=== PATIENT | female | born 1945 | race Caucasian/White ===

== ENCOUNTER 2015-12-06 14:46 | Outpatient (RCR) | payer MEDICARE, MEDICAID ==
[~2015-12-06 14:46] MED LIST: ACHD5005 PO; ALPR.25T PO; ASPI-983 PO; ATOR40TA70 PO; CEPH500C PO; CLD600T PO; DICY10CA12 PO; DICY20TA10 PO; EZET10TA5 PO; GABA-488 PO; GBPN300C PO; GLIP10TA13 PO; HYDR1TAB66 PO; IBP800T PO; IBUP-1780 PO; LETR2.5T4 PO; LEVO125T6 PO; LEVO500T69 PO; LEVO750T6 PO; LIRA0.6P SQ; LIRA0.6P3 SC; LISI10TA PO; MAGN400T29 PO; MECL25TA56 PO; MECO5000 PO; METF1000 PO; METF500T4 PO; MIRA50TA PO; MNTL10T PO; MONT10TA24 PO; MTF500T PO; MULT-974 PO; OMEG1CAP51 PO; OMEP20CA12 PO; OXYB15TA PO; PGLT30T PO; SERT25TA PO; SERT25TA5 PO; SIMV80TA3 PO; SITA100T PO; SOLI5TAB4 PO; TRAM-42 PO
[2015-12-06 15:36] LABS: BASOPHILS % (AUTO) 0 % (0-10); EOSINOPHILS # (AUTO) 0.1 10^3/uL (0.0-0.3); EOSINOPHILS % (AUTO) 1 % (0-10); LYMPHOCYTES # (AUTO) 1.4 X 10^3 (1.0-4.0); LYMPHOCYTES % (AUTO) 21 % (12-44); MEAN CORPUSCULAR HEMOGLOBIN 27 PG (25-34); MEAN CORPUSCULAR HGB CONC 31 G/DL (32-36); MEAN CORPUSCULAR VOLUME 88 FL (80-99); MEAN PLATELET VOLUME 8.8 FL (7.4-10.4); MONOCYTES # (AUTO) 0.5 X 10^3 (0.0-1.0); MONOCYTES % (AUTO) 8 % (0-12); NEUTROPHILS # (AUTO) 4.5 X 10^3 (1.8-7.8); NEUTROPHILS % (AUTO) 70 % (42-75); PLATELET COUNT 209 10^3/uL (130-400); RED BLOOD COUNT 3.95 10^6/uL (4.35-5.85); RED CELL DISTRIBUTION WIDTH 14.4 % (10.0-14.5); WHITE BLOOD COUNT 6.4 10^3/uL (4.3-11.0)
[2015-12-06 16:54] LABS: ALANINE AMINOTRANSFERASE 15 U/L (0-55); ALBUMIN 3.9 G/DL (3.2-4.5); ANION GAP 6 MMOL/L (5-14); ASPARTATE AMINO TRANSFERASE 15 U/L (5-34); BILIRUBIN,TOTAL 0.5 MG/DL (0.1-1.0); BLOOD UREA NITROGEN 22 MG/DL (7-18); BUN/CREATININE RATIO 34; CALCIUM 9.1 MG/DL (8.5-10.1); CARBON DIOXIDE 28 MMOL/L (21-32); CHLORIDE 108 MMOL/L (98-107); CREATININE SERUM 0.65 MG/DL (0.60-1.30); GFR ESTIMATED > 60; GLUCOSE 131 MG/DL (70-105); POTASSIUM 3.8 MMOL/L (3.6-5.0); SODIUM 142 MMOL/L (135-145); TOTAL PROTEIN 6.7 G/DL (6.4-8.2)
== END 2016-03-05 | disposition home or self-care (01) ==
LOC: ONC 14:46
PROVIDERS: ATTEND Internal Medicine Hematology & Oncology
DX: Z08 Encounter for follow-up examination after completed treatment for malignant neoplasm (principal); Z85.3 Personal history of malignant neoplasm of breast; I89.0 Lymphedema, not elsewhere classified; M85.80 Other specified disorders of bone density and structure, unspecified site
CPT/HCPCS: 36415; 80053; 85025; 99213

== ENCOUNTER → 2016-05-25 | Outpatient (CLI) | payer MEDICARE, MEDICAID ==
--- NOTE | 2016-06-07 09:12 | ECHOCARDIOGRAPHY REPORT ---
PROCEDURE PHYSICIAN: HALI CEDENO DATE OF PROCEDURE: 05/25/2016 TWO DIMENSIONAL ECHOCARDIOGRAM REPORT PRIMARY PHYSICIAN: Dr. Wong OTHER PHYSICIAN: Salome Jaquez APRN REFERRING PHYSICIAN: ORDERING PHYSICIAN: Shannan Leon APRN INDICATION FOR THE PROCEDURE: 1. Hypertension. 2. Mitral and tricuspid regurgitation. MEASUREMENTS DERIVED VALUES LV DIAMETER (LAX) NORMALS NORMALS Diastolic 5.3 (3.6-5.2) Eject. Fract. (60%+/-6%) Systolic (2.3-3.9) Diastolic Vol. % Shortening (0.22-0.42) Systolic Vol. Aortic Root 3.1 IVS THICKNESS Diastolic 0.8 (0.6-1.1) LVPW THICKNESS Diastolic 0.9 (0.6-1.1) LA DIAMETER Systolic 3.2 (2.1-3.7) Two-dimensional echocardiography shows normal global left ventricular systolic function. No distinct regional wall motion abnormalities are seen. Aortic, mitral, tricuspid valve leaflets show good leaflet excursion. Aortic valve appears to be trileaflet. There is no significant pericardial effusion seen on this study. Doppler imaging shows trivial to mild mitral and tricuspid regurgitation. There is no Doppler evidence of significant valvular stenosis. Pulmonary artery systolic pressure is estimated to be approximately 30 to 35 mmHg. Mitral inflow is consistent with grade 1 diastolic dysfunction of the left ventricle. There is no evidence of significant intracardiac shunt on this transthoracic echocardiographic study. Inferior vena cava appears to be of normal size and does exhibit inspiratory collapse. CONCLUSIONS: 1. Normal global left ventricular systolic function with an ejection fraction of approximately 60%. 2. Trivial to mild mitral and tricuspid regurgitation. 3. Pulmonary artery systolic pressure is estimated to be 30 to 35 mmHg. 4. Mild diastolic dysfunction of the left ventricle. 5. No evidence of any significant valvular stenosis. Job ID: [id number] Dictated Date: 06/06/2016 14:25:44 Sand Shoveler Date: 06/07/2016 09:07:32 / sunil
== END ==
LOC: CARD 09:41
PROVIDERS: ATTEND Nurse Practitioner Family
DX: I65.23 Occlusion and stenosis of bilateral carotid arteries (principal); E78.4 Other hyperlipidemia; I10 Essential (primary) hypertension; I34.0 Nonrheumatic mitral (valve) insufficiency; I07.1 Rheumatic tricuspid insufficiency
CPT/HCPCS: 93306

== ENCOUNTER 2016-06-05 10:05 | Outpatient (RCR) | payer MEDICARE, MEDICAID ==
[2016-06-05 10:19] LABS: BASOPHILS % (AUTO) 0 % (0-10); EOSINOPHILS # (AUTO) 0.1 10^3/uL (0.0-0.3); EOSINOPHILS % (AUTO) 1 % (0-10); LYMPHOCYTES # (AUTO) 1.3 X 10^3 (1.0-4.0); LYMPHOCYTES % (AUTO) 20 % (12-44); MEAN CORPUSCULAR HEMOGLOBIN 27 PG (25-34); MEAN CORPUSCULAR HGB CONC 30 G/DL (32-36); MEAN CORPUSCULAR VOLUME 89 FL (80-99); MEAN PLATELET VOLUME 8.5 FL (7.4-10.4); MONOCYTES # (AUTO) 0.5 X 10^3 (0.0-1.0); MONOCYTES % (AUTO) 8 % (0-12); NEUTROPHILS # (AUTO) 4.4 X 10^3 (1.8-7.8); NEUTROPHILS % (AUTO) 70 % (42-75); PLATELET COUNT 175 10^3/uL (130-400); RED BLOOD COUNT 4.13 10^6/uL (4.35-5.85); RED CELL DISTRIBUTION WIDTH 15.2 % (10.0-14.5); WHITE BLOOD COUNT 6.2 10^3/uL (4.3-11.0)
[2016-06-05 11:18] LABS: ALANINE AMINOTRANSFERASE 23 U/L (0-55); ALBUMIN 4.2 G/DL (3.2-4.5); ANION GAP 7 MMOL/L (5-14); ASPARTATE AMINO TRANSFERASE 19 U/L (5-34); BILIRUBIN,TOTAL 0.9 MG/DL (0.1-1.0); BLOOD UREA NITROGEN 25 MG/DL (7-18); BUN/CREATININE RATIO 36; CALCIUM 9.3 MG/DL (8.5-10.1); CARBON DIOXIDE 29 MMOL/L (21-32); CHLORIDE 109 MMOL/L (98-107); CREATININE SERUM 0.69 MG/DL (0.60-1.30); GFR ESTIMATED > 60; GLUCOSE 140 MG/DL (70-105); POTASSIUM 4.3 MMOL/L (3.6-5.0); SODIUM 145 MMOL/L (135-145); TOTAL PROTEIN 6.9 G/DL (6.4-8.2)
[2016-08-04] MEDS ORDERED: CHOL200014 PO (10:13)
[2016-08-11] MEDS ORDERED: TRAM-42 PO (18:28)
== END 2016-09-03 | disposition home or self-care (01) ==
LOC: ONC 10:05
PROVIDERS: ATTEND Internal Medicine Hematology & Oncology
DX: Z08 Encounter for follow-up examination after completed treatment for malignant neoplasm (principal); Z85.3 Personal history of malignant neoplasm of breast; I89.0 Lymphedema, not elsewhere classified; M85.80 Other specified disorders of bone density and structure, unspecified site
CPT/HCPCS: 36415; 80053; 85025; 99213

== ENCOUNTER 2016-08-04 06:43 | Outpatient (CLI) | payer MEDICARE, MEDICAID ==
[~2016-08-04] VITALS: Ht 157.5 cm; Wt 75.7 kg
[2016-08-04] MEDS ORDERED: CHOL200014 PO (10:13)
== END 2016-08-04 10:19 ==
LOC: PREOP 06:43
PROVIDERS: ATTEND Surgery
DX: Z01.818 Encounter for other preprocedural examination (principal); Z12.11 Encounter for screening for malignant neoplasm of colon

== ENCOUNTER 2016-08-07 08:33 | Day surgery (SDC) | payer MEDICARE, MEDICAID ==
[~2016-08-07 08:33] MED LIST changes: +CHOL200014 PO
[2016-08-07 08:45] VITALS: BP 157/88
[2016-08-07] MEDS ORDERED: FLUMAZENIL (ROMAZICON) 0.1 MG/ML 5 ML VIAL INJ PRN (08:45)
[2016-08-07] MEDS ORDERED: NALOXONE 0.4 MG/ML 1 ML (NARCAN) VIAL IVP PRN (08:45)
[2016-08-07] MEDS ORDERED: NS IV 500 ML 500 ML IV PRN (08:45)
[2016-08-07] MEDS ORDERED: fentaNYL INJECTION 100 MCG/2 ML AMP IVP PRN (08:45)
[2016-08-07] MEDS ORDERED: MIDAZOLAM 2 MG/2 ML (VERSED) VIAL IVP PRN (08:45)
--- NOTE | 2016-08-07 10:15 | Conscious Sedation/ASA ---
Conscious Sedation Pre-Proced Time Reviewed: 10:15 ASA Class: 2 Airway Mallampati Classification: ([place] appropriate class) I. II. III, IV Lungs Heart ASA score ASA 1: a normal healthy patient ASA 2: a patient with a mild systemic disease (mid diabetes, controlled hypertension, obesity ASA 3: a patient with a severe systemic disease that limits activity (angina , COPD, prior Myocardial infarction) ASA 4: a patient with an incapacitating disease that is a constant threat to life (CHF, renal failure) ASA 5: a moribund patient not expected to survive 24 hrs. (ruptured aneurysm) ASA 6: a declared brain patient whose organs are being harvested. For emergent operations, add the letter E after the classification Grade 2 Sedation Plan: Discussed options with patient/fam Note The patient is an appropriate candidate to undergo the planned procedure, sedation, and anesthesia. The patient immediately re-assessed prior to indication. KEYLA SHERIDAN MD Aug 07, 2016 10:15 am
[2016-08-07] MEDS ORDERED: MIDAZOLAM 2 MG/2 ML (VERSED) VIAL ONE ×3 (10:32)
[2016-08-07] MEDS ORDERED: fentaNYL INJECTION 100 MCG/2 ML AMP ONE (10:32)
--- NOTE | 2016-08-07 11:10 | Endoscopy Procedure Report ---
Endoscopy Report Date: Aug 07, 2016 Preoperative Diagnosis: screening Study Performed: Colonoscopy Procedure Instrument: Colonoscope Endo Procedure/Findings Findings 1.: Diverticulosis KEYLA SHERIDAN MD Aug 07, 2016 11:10 am
--- NOTE | 2016-08-07 11:13 | Discharge Inst-Simple/Standard ---
Discharge Inst-Standard Discharge Medications New, Converted or Re-Newed RX: Other Patient Instructions/Follow Up Plan of Care/Instructions/FU: please schedule CT abdomen and pelvis with rectal contrast Activity as Tolerated: Yes Discharge Diet: No Restrictions KEYLA SHERIDAN MD Aug 07, 2016 11:13 am
[2016-08-07 11:30] VITALS: BP 138/89
[2016-08-07 12:00] VITALS: BP 133/88
--- NOTE | 2016-08-07 12:51 | OPERATIVE REPORT ---
DATE OF SERVICE: 08/07/2016 PROCEDURE: Incomplete colonoscopy. SURGEON: Keyla Sheridan MD. INDICATION FOR PROCEDURE: This lady came in for screening colonoscopy. Informed consent was obtained after reviewing the procedure in detail. DESCRIPTION OF PROCEDURE: She was placed in left lateral decubitus position and her vital signs were monitored. Conscious sedation was achieved using Versed and fentanyl. Digital rectal examination was unremarkable. The colonoscope was then introduced into the rectum and advanced to the mid sigmoid colon. Despite multiple attempts, the scope could not be advanced further due to extensive sigmoid diverticulosis. Therefore, further attempts were abandoned with arrangements for a CT scan with rectal contrast. IMPRESSION: Screening colonoscopy incomplete examination. Severe sigmoid diverticulosis. CT scan pending. Job ID: [id number] DocumentID: [id number] Dictated Date: 08/07/2016 11:09:51 Deck Molder Date: 08/07/2016 12:50:49 Dictated By: KEYLA SHERIDAN MD MTDD
[2016-08-07 13:37] VITALS: BP 151/88
[2016-08-07 13:50] VITALS: BP 151/88
--- NOTE | 2016-08-07 14:37 | Diagnostic Imaging Report ---
PROCEDURE: CT abdomen and pelvis without intravenous, and with rectal contrast. TECHNIQUE: Multiple contiguous axial images were obtained through the abdomen and pelvis without the use of intravenous and with rectal contrast. Prone and supine imaging is performed. INDICATION: Sigmoid diverticulosis. Rectal contrast was administered. FINDINGS: There is good rectal contrast opacification of the colon which is also generally well prepped. There is diverticulosis mostly in the sigmoid and the descending colon with some diverticula seen in the right colon as well. There is no obstruction or stricture. Slight probably physiologic contraction in the sigmoid colon is seen. Adjacent to the ileocecal valve, there is a focal area of fold thickening seen as on axial image 60 series 2. When the prone and supine images are compared in the same region there is a slight change in the appearance of this area and therefore it is uncertain if it represents fecal material versus possibly a pedunculated polyp. This measures 2.3 x 1 CM as on image 60, series 2 and the corresponding abnormality on series 5 is on image 54. The lung bases demonstrate minimal atelectasis on the left side and tiny loculated effusion along the anterolateral aspect of the lower left hemithorax. There is a tiny hiatal hernia. Cholecystectomy clips are seen. The liver demonstrate a hypodense lesion measuring 9 mm in segment 4 of uncertain etiology. The spleen is at the upper limits of normal in size. The pancreas and the right adrenal gland appear unremarkable. The left adrenal gland demonstrates a low density lesion measuring 2.6 CM stable from 2009 compatible with lipid rich adenoma. The kidneys have no evidence of hydronephrosis and there are no stones seen. No significant free fluid or fluid collection in the abdomen or pelvis is seen. The osseous structures appear grossly unremarkable. IMPRESSION: 1. There is a 2.3 cm filling defect within the cecum near the ileocecal valve. This could represent a pedunculated polyp versus fecal material, from an incomplete prep. Followup study with rectal contrast or endoscopic examination is recommended. 2. Diverticulosis. No diverticulitis. A message about the findings was sent to Dr. Payne at time of dictation. Dictated by: Dictated on workstation # [id number]
== END 2016-08-07 13:50 | disposition home or self-care (01) ==
LOC: ENDO 08:33
PROVIDERS: ATTEND Surgery
DX: Z12.11 Encounter for screening for malignant neoplasm of colon (principal); K57.30 Diverticulosis of large intestine without perforation or abscess without bleeding; I10 Essential (primary) hypertension; E78.5 Hyperlipidemia, unspecified; K21.9 Gastro-esophageal reflux disease without esophagitis; E03.9 Hypothyroidism, unspecified; E11.9 Type 2 diabetes mellitus without complications; F32.9 Major depressive disorder, single episode, unspecified; M19.90 Unspecified osteoarthritis, unspecified site
CPT/HCPCS: 74176

== ENCOUNTER 2016-08-11 15:38 | Emergency (ER) | payer MEDICARE, MEDICAID ==
[~2016-08-11] VITALS: Ht 157.5 cm; Wt 75.7 kg
--- NOTE | 2016-08-11 17:08 | Diagnostic Imaging Report ---
INDICATION: Left shoulder pain, fall. COMPARISON: None. EXAMINATION: Four views of the left shoulder were obtained. FINDINGS: No fracture or dislocation. Articular surfaces are age-appropriate. There is no osseous lesion. IMPRESSION: No acute fracture or dislocation. Dictated by: Dictated on workstation # [id number]
--- NOTE | 2016-08-11 17:12 | Diagnostic Imaging Report ---
PROCEDURE: CT head, face, and cervical spine without contrast. TECHNIQUE: Multiple contiguous axial images were obtained through the head, neck, and facial bones without the use of intravenous contrast. Sagittal and coronal reformations through the cervical spine and facial bones were also performed. INDICATION: Fall. Hit left cheek on ground. FINDINGS: CT head without: There is no evidence of intracranial hemorrhage. There is no mass effect. No extra-axial fluid collection. Basal cisterns are clear. Mastoid air cells are well aerated. Bone windows show no evidence of calvarial fracture. Facial bones: There is marked soft tissue swelling noted over the left infraorbital region. No evidence of orbital fracture. There is a retention cyst in the left maxillary antrum measuring approximately 1 cm. Small cyst noted in the left ethmoid sinus as well. Mandible appears intact. Temporomandibular joints are in good alignment. IMPRESSION: Large hematoma over the left infraorbital region with no bony lesions demonstrated. Finding consistent with mild chronic inflammatory changes of paranasal sinuses. CT cervical spine: FINDINGS: Sagittal and coronal images show good alignment. Body height is well maintained. 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 There is no evidence of fractures. Advanced degenerative changes noted throughout. The atlantoaxial joint is intact with degenerative change. The surrounding soft tissues appear normal. IMPRESSION: Advanced degenerative cervical disc and facet disease with no acute abnormalities. Incidentally noted is thyroidectomy with no cervical chain adenopathy. Dictated by: Dictated on workstation # [id number]
--- NOTE | 2016-08-11 18:16 | ED Fall/Injury ---
General Chief Complaint: Trauma-Non Activation Stated Complaint: FALL;FACE AND SHOULDER INJ Nursing Triage Note: to ED with reports of fall, landing on left shoulder and striking left face on ground. Patient reports that she was walking with a walker and the wheel got caught on the curb, and she fell. Denies LOC. Moderate inflammation to the left periorbital area. Patient also complaining of left shoulder pain. Source: patient History of Present Illness Time seen by provider: 18:10 Initial Comments 1809--ASSUMED CARE FROM DR. 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 NO DIZZINESS NO NAUSEA/VOMITING NO HEADACHE NO OTHER INJURIES Location Injury Occurred: [facility] PCP: LOLITA CANALES Allergies and Home Medications Allergies Coded Allergies: latex (Verified Allergy, Unknown, 11/10/05) Home Medications Aspirin 81 Mg Tablet.dr, 81 MG PO DAILY, (Reported) Atorvastatin Calcium 40 Mg Tablet, 40 MG PO HS, (Reported) Calcium/Vitamin D 600 Mg Tab, 600 MG PO DAILY, (Reported) Cholecalciferol (Vitamin D3) 2,000 Unit Tablet, 2,000 UNIT PO DAILY, (Reported) Dicyclomine HCl 10 Mg Capsule, 10 MG PO QID, (Reported) Ezetimibe 10 Mg Tablet, 10 MG PO DAILY, (Reported) Gabapentin 300 Mg Capsule, 300 MG PO TID, (Reported) Glipizide 10 Mg Tablet, 10 MG PO BID, (Reported) Ibuprofen 800 Mg Tablet, 800 MG PO TID, (Reported) Levothyroxine Sodium 125 Mcg Tablet, 125 MCG PO DAILY, (Reported) Liraglutide 0.6 Mg/0.1 Ml Pen.injctr, 1.8 MG SC HS, (Reported) Magnesium Oxide 400 Mg Tablet, 400 MG PO BID, (Reported) Metformin HCl 500 Mg Tablet, 1,000 MG PO BID, (Reported) TAKES 2 (500MG) TABLETS Mirabegron 50 Mg Tab.er.24h, 50 MG PO 1200, (Reported) Montelukast Sodium 10 Mg Tablet, 10 MG PO HS, (Reported) [place]-3 Fatty Acids/Fish Oil 1 Each Capsule, 1,000 MG PO TID, (Reported) Omeprazole 20 Mg Capsule.dr, 20 MG PO BID, (Reported) Oxybutynin Chloride 15 Mg Tab.er.24, 15 MG PO DAILY, (Reported) Sertraline HCl 25 Mg Tablet, 25 MG PO HS, (Reported) Tramadol HCl 50 Mg Tablet, 50 MG PO Q4H, #15 Prescribed by: JES PEREZ on 08/11/16 1828 Constitutional: no symptoms reported Eyes: See HPI Ears, Nose, Mouth, Throat: no symptoms reported Respiratory: no symptoms reported Cardiovascular: no symptoms reported Gastrointestinal: no symptoms reported, No nausea, No vomiting Genitourinary: no symptoms reported Musculoskeletal: see HPI, No back pain, No neck pain, other (LEFT SHOULDER PAIN ) Skin: other (MINOR ABRASIONS TO LEFT CHEEK AND SHOULDER) Psychiatric/Neurological: No Symptoms Reported, Denies Headache, Denies Numbness, Denies Paresthesia Past Ddmzhem-Grgulk-Tcflla Hx Patient Social History Alcohol Use: Denies Use Recreational Drug Use: No Smoking Status: Former Smoker Type Used: Cigarettes Former Smoker/When Quit: Dec 25, 2006 2nd Hand Smoke Exposure: No Recent Foreign Travel: No Contact w/Someone Who Travel: No Recent Infectious Disease Expo: No Recent Hopitalizations: No Immunizations Up To Date Tetanus Booster (TDap): Unknown Date of Pneumonia Vaccine: Jan 26, 2012 Date of Influenza Vaccine: Nov 19, 2014 Seasonal Allergies Seasonal Allergies: Yes Surgeries HX Surgeries: Yes (bilat arm fx, port placed and removed; RIGHT BREAST LUMPECTOMY AND RIGHT AXILLARY NODE DISSECTION 2008) Surgeries: Angioplasty, Breast, Eye Surgery, Gallbladder, 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, Orthopedic, Renal, Thyroidectomy Respiratory Hx Respiratory Disorders: No Cardiovascular Hx Cardiac Disorders: Yes (heart cath august 2010; CAROTID DISEASE) Cardiac Disorders: High Cholesterol, Hypertension, Peripheral Vascular Neurological Hx Neurological Disorders: Yes Neurological Disorders: Neuropathy Reproductive System Hx Reproductive Disorders: No Sexually Transmitted Disease: No HIV/AIDS: No Genitourinary Hx Genitourinary Disorders: Yes (INCONTINENCE) Genitourinary Disorders: Kidney Stones Gastrointestinal Hx Gastrointestinal Disorders: Yes Gastrointestinal Disorders: Gastroesophageal Reflux, Polyps, Irritable Bowel Musculoskeletal Hx Musculoskeletal Disorders: Yes (LYMPHEDEMA OF RIGHT ARM) Musculoskeletal Disorders: Degenerate Disk Disease, Arthritis, Chronic Back Pain Endocrine Hx Endocrine Disorders: Yes ( S/P THYROIDECTOMY) Endocrine Disorders: Hypothyroidsim, Diabetes, Non-Insulin dep HEENT HX ENT Disorders: Yes (RETINITIS PIGMENTOSA) HEENT Disorders: Cataract Loss of Vision: Left Hearing Impairment: Denies Cancer Hx Cancer: Yes (S/P RIGHT LUMPECTOMY & LYMPH NODE DISSECTION 2008) Cancer: Breast Psychosocial Hx Psychiatric Problems: Yes Behavioral Health Disorders: Sleep Difficulties, Anxiety, Depression Integumentary HX Skin/Integumentary Disorder: Yes (hx of CELLULITIS OF BREAST/CHEST WALL; ) Skin/Integumentary Disorders: Herpes Blood Transfusions Hx Blood Disorders: No Adverse Reaction to a Blood Tr: No Family Medical History Family Medial History: Patient reports no known family medical history. Physical Exam Vital Signs Vital Sign - Last 12Hours 08/11/ 16:27 Temp 97.5 Pulse 76 Resp 18 B/P (MAP) 141/76 Pulse Ox 96 O2 Delivery Room Air Capillary Refill : Less Than 3 Seconds General Appearance: WD/WN, no apparent distress HEENT: TMs normal, pharynx normal, other (LEFT PUPIL SLIGHTLY SMALLER THAN RIGHT, BUT IS REACTIVE--PT IS ESSENTIALLY BLIND IN LEFT EYE DUE TO RETINITIS PIGMENTOSA. . LEFT SUBCONJUNCTIVAL HEMORRHAGE. SEVERE LEFT PERIORBITAL HEMATOMA. POOR DENTITION. ) Neck: non-tender, full range of motion, supple, normal inspection Cardiovascular: regular rate, rhythm, no murmur Respiratory: chest non-tender, normal breath sounds, no respiratory distress, no accessory muscle use Peripheral Pulses: 2+ Dorsalis Pedis (R), 2+ Left Dors-Pedis (L), 2+ Radial Pulses (R), 2+ Radial Pulses (L) Gastrointestinal: normal bowel sounds, non tender, soft Back: normal inspection, no CVA tenderness, no vertebral tenderness Extremities: normal capillary refill, pedal edema (1+ BILATERALLY), other ( MILD TENDERNESS AND ABRASION TO LEFT SHOULDER. ROM LIMITED BY PAIN. DISTAL MOTOR /SENSORY/VASCULAR INTACT. 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 ), other ( MINOR ABRASION TO LEFT CHEEK AND CHIN, AND TO LEFT SHOULDER) [place] Coma Score Best Eye Response: (4) Open Spontaneously Best Verbal Response: (5) Oriented Best Motor Response: (6) Obeys Commands [place] Total: 15 Progress/Results/Core Measures Results/Orders My Orders Orders - JES PEREZ DO Sling (08/11/16 18:25) Vital Signs/I&O Vital Sign - Last 12Hours 08/11/16 16:27 Temp 97.5 Pulse 76 Resp 18 B/P (MAP) 141/76 Pulse Ox 96 O2 Delivery Room Air Blood Pressure Mean: [address] HEAD/MAXILLOFACIAL/CERVICAL SPINE--NO ACUTE PROCESS XRAYS SHOULDER--NO ACUTE PROCESS PER RADIOLOGIST REPORTS @ 1811 Reviewed: Reviewed by Me Departure Impression Impression: Primary Impression: Status post fall Additional Impressions: Periorbital hematoma of left eye Contusion of left shoulder, initial encounter Cervical strain, acute Minor head injury without loss of consciousness MINOR ABRASIONS TO LEFT CHEEK AND SHOULDER [id number]-ihllpjy (DPT) vaccination administered at current visit Disposition: 01 HOME, SELF-CARE Condition: Stable Departure-Patient Inst. Referrals: MARC CALL DO (PCP) Primary Care Physician TASHA MEDEROS (Family) Primary Care Physician Patient Instructions: Black Eye, Cervical Muscle Strain (DC), Contusion (DC), Diphtheria and Tetanus Toxoids, and Acellular Pertussis Vaccine, Eye Contusion ( DC), Getting Up From a Fall, How to Use a Shoulder Sling, Minor Head Injury (DC) , Preventing Falls in the Older Adult, Skin Abrasions (DC) Add. Discharge Instructions: ICE TO SORE AREAS AT 20 MINUTE INTERVALS WEAR SLING NEEDED FOR COMFORT ACTIVITIES TOLERATED TYLENOL AND IBUPROFEN NEEDED FOR PAIN FOLLOW UP WITH YOUR DR IN 1 WEEK IF NO BETTER All discharge instructions reviewed with patient and/or family. Voiced understanding. Scripts Tramadol HCl (Ultram) 50 Mg Tablet 50 MG PO Q4H, #15 TAB Prov: JES PEREZ DO 08/11/16 JES PEREZ 23, 2017 18:16
[2016-08-11] MEDS ORDERED: TRAM-42 PO (18:28)
[2016-08-11] MEDS ORDERED: TETANUS,DIPTH,PERTUSS P/F (BOOSTRIX) 0.5 ML VIAL IM ONE (18:45)
[2016-08-11 18:50] VITALS: BP 133/77
--- OUTSIDE RECORDS SUMMARY | 2016-08-14 15:22 | XMS REPORT | Continuity of Care Document ---
Author Author [facility] Address Unknown Phone Unavailable Allergies Active Description Code Type Severity Reaction Onset Reported/Identified Relationship to Patient Clinical Status Yes aspirin [id number] Drug Allergy Unknown N/A 11/10/2005 Yes latex [id number] Drug Allergy Unknown N/A 11/10/2005 Yes aspirin Drug Allergy N/A N/A 03/18/2008 Yes aspirin Drug Allergy 03/18/2008 Yes predniSONE Drug Allergy 03/18/2008 Yes Lisinopril 10mg tab 20 mg tablet Drug Allergy N/A N/A 03/18/2012 Yes Lisinopril 10mg tab 20 mg tablet Drug Allergy 03/18/2012 Medications Problems Date Dx Coded Attending Type Code Diagnosis Diagnosed By 08/22/2007 CALL DO MARC K 250.03 DIABETES 1 UNCONTROLLED 08/22/2007 CALL DO, MARC K 401.1 ESSENTIAL HYPERTENSION BENIGN 08/22/2007 CALL DO, MARC K 492.8 EMPHYSEMA OTHER 08/22/2007 CALL DO, MARC K 250.03 DIABETES 1 UNCONTROLLED 08/22/2007 CALL DO, MARC K 401.1 ESSENTIAL HYPERTENSION BENIGN 08/22/2007 CALL DO, MARC K 492.8 EMPHYSEMA OTHER 08/22/2007 CALL DO, MARC K 250.03 DIABETES 1 UNCONTROLLED 08/22/2007 CALL DO, MARC K 401.1 ESSENTIAL HYPERTENSION BENIGN 08/22/2007 CALL DO, MARC K 492.8 EMPHYSEMA OTHER 08/22/2007 CALL DO, MARC K 250.03 DIABETES 1 UNCONTROLLED 08/22/2007 CALL DO, MARC K 401.1 ESSENTIAL HYPERTENSION BENIGN 08/22/2007 CALL DO, MARC K 492.8 EMPHYSEMA OTHER 08/22/2007 250.03 DIABETES 1 UNCONTROLLED 08/22/2007 401.1 ESSENTIAL HYPERTENSION BENIGN 08/22/2007 492.8 EMPHYSEMA OTHER 08/22/2007 CALL DO, MARC K 250.03 DIABETES 1 UNCONTROLLED 08/22/2007 CALL DO, MARC K 401.1 ESSENTIAL HYPERTENSION BENIGN 08/22/2007 CALL DO, MARC K 492.8 EMPHYSEMA OTHER 08/22/2007 250.03 DIABETES 1 UNCONTROLLED 08/22/2007 401.1 ESSENTIAL HYPERTENSION BENIGN 08/22/2007 492.8 EMPHYSEMA OTHER 08/22/2007 250.03 DIABETES 1 UNCONTROLLED 08/22/2007 401.1 ESSENTIAL HYPERTENSION BENIGN 08/22/2007 492.8 EMPHYSEMA OTHER 08/22/2007 ONEYDA LOJA MARC K 250.03 DIABETES 1 UNCONTROLLED 08/22/2007 MATTHIAS CALL DOA K 401.1 ESSENTIAL HYPERTENSION BENIGN 08/22/2007 MATTHIAS CALL DOA K 492.8 EMPHYSEMA OTHER 08/22/2007 250.03 DIABETES 1 UNCONTROLLED 08/22/2007 401.1 ESSENTIAL HYPERTENSION BENIGN 08/22/2007 492.8 EMPHYSEMA OTHER 08/22/2007 250.03 DIABETES 1 UNCONTROLLED 08/22/2007 401.1 ESSENTIAL HYPERTENSION BENIGN 08/22/2007 492.8 EMPHYSEMA OTHER 08/22/2007 250.03 DIABETES 1 UNCONTROLLED 08/22/2007 401.1 ESSENTIAL HYPERTENSION BENIGN 08/22/2007 492.8 EMPHYSEMA OTHER 08/22/2007 VARUN HARRISON APRN 250.03 DIABETES 1 UNCONTROLLED 08/22/2007 VARUN HARRISON APRN 401.1 ESSENTIAL HYPERTENSION BENIGN 08/22/2007 VARUN HARRISON APRN 492.8 EMPHYSEMA OTHER 08/22/2007 250.03 DIABETES 1 UNCONTROLLED 08/22/2007 401.1 ESSENTIAL HYPERTENSION BENIGN 08/22/2007 492.8 EMPHYSEMA OTHER 08/22/2007 250.03 DIABETES 1 UNCONTROLLED 08/22/2007 401.1 ESSENTIAL HYPERTENSION BENIGN 08/22/2007 492.8 EMPHYSEMA OTHER 08/22/2007 250.03 DIABETES 1 UNCONTROLLED 08/22/2007 401.1 ESSENTIAL HYPERTENSION BENIGN 08/22/2007 492.8 EMPHYSEMA OTHER 08/22/2007 250.03 DIABETES 1 UNCONTROLLED 08/22/2007 401.1 ESSENTIAL HYPERTENSION BENIGN 08/22/2007 492.8 EMPHYSEMA OTHER 08/22/2007 250.03 DIABETES 1 UNCONTROLLED 08/22/2007 401.1 ESSENTIAL HYPERTENSION BENIGN 08/22/2007 492.8 EMPHYSEMA OTHER 08/22/2007 MATTHIAS CALL DOA K 250.03 DIABETES 1 UNCONTROLLED 08/22/2007 MATTHIAS CALL DOA K 401.1 ESSENTIAL HYPERTENSION BENIGN 08/22/2007 MARC CALL DO K 492.8 EMPHYSEMA OTHER 08/22/2007 CALL DO, MARC K 250.03 DIABETES 1 UNCONTROLLED 08/22/2007 CALL DO, MARC K 401.1 ESSENTIAL HYPERTENSION BENIGN 08/22/2007 CALL DO, MARC K 492.8 EMPHYSEMA OTHER 08/22/2007 CALL DO, MARC K 250.03 DIABETES 1 UNCONTROLLED 08/22/2007 CALL DO, MARC K 401.1 ESSENTIAL HYPERTENSION BENIGN 08/22/2007 CALL DO, MARC K 492.8 EMPHYSEMA OTHER 08/22/2007 CALL DO, MARC K 250.03 DIABETES 1 UNCONTROLLED 08/22/2007 CALL DO, MARC K 401.1 ESSENTIAL HYPERTENSION BENIGN 08/22/2007 CALL DO, MARC K 492.8 EMPHYSEMA OTHER 08/22/2007 CALL DO, MARC K 250.03 DIABETES 1 UNCONTROLLED 08/22/2007 CALL DO, MARC K 401.1 ESSENTIAL HYPERTENSION BENIGN 08/22/2007 CALL DO, MARC K 492.8 EMPHYSEMA OTHER 08/22/2007 CALL DO, MARC K 250.03 DIABETES 1 UNCONTROLLED 08/22/2007 CALL DO, MARC K 401.1 ESSENTIAL HYPERTENSION BENIGN 08/22/2007 CALL DO, MARC K 492.8 EMPHYSEMA OTHER 08/22/2007 CALL DO, MARC K 250.03 DIABETES 1 UNCONTROLLED 08/22/2007 CALL DO, MARC K 401.1 ESSENTIAL HYPERTENSION BENIGN 08/22/2007 CALL DO, MARC K 492.8 EMPHYSEMA OTHER 08/22/2007 WHITE DDS, CARMEN D 250.03 DIABETES 1 UNCONTROLLED 08/22/2007 WHITE DDS, CARMEN D 401.1 ESSENTIAL HYPERTENSION BENIGN 08/22/2007 WHITE DDS, CARMEN D 492.8 EMPHYSEMA OTHER 08/22/2007 CALL DO, MARC K 250.03 DIABETES 1 UNCONTROLLED 08/22/2007 CALL DO, MARC K 401.1 ESSENTIAL HYPERTENSION BENIGN 08/22/2007 CALL DO, MARC K 492.8 EMPHYSEMA OTHER 08/22/2007 CALL DO, MARC K 250.03 DIABETES 1 UNCONTROLLED 08/22/2007 CALL DO, MARC K 401.1 ESSENTIAL HYPERTENSION BENIGN 08/22/2007 CALL DO, MARC K 492.8 EMPHYSEMA OTHER 08/22/2007 WHITE DDS, LIZBETH J 250.03 DIABETES 1 UNCONTROLLED 08/22/2007 WHITE DDS, LIZBETH J 401.1 ESSENTIAL HYPERTENSION BENIGN 08/22/2007 WHITE DDS, LIZBETH J 492.8 EMPHYSEMA OTHER 08/22/2007 WHITE DDS, CARMEN D 250.03 DIABETES 1 UNCONTROLLED 08/22/2007 WHITE DDS, CARMEN D 401.1 ESSENTIAL HYPERTENSION BENIGN 08/22/2007 WHITE DDS, CARMEN D 492.8 EMPHYSEMA OTHER 08/22/2007 CALL DO, MARC K 250.03 DIABETES 1 UNCONTROLLED 08/22/2007 CALL DO, MARC K 401.1 ESSENTIAL HYPERTENSION BENIGN 08/22/2007 CALL DO, MARC K 492.8 EMPHYSEMA OTHER 08/22/2007 CALL DO, MARC K 250.03 DIABETES 1 UNCONTROLLED 08/22/2007 CALL DO, MARC K 401.1 ESSENTIAL HYPERTENSION BENIGN 08/22/2007 CALL DO, MARC K 492.8 EMPHYSEMA OTHER 08/22/2007 ISAAC GARYN, NORA R 250.03 DIABETES 1 UNCONTROLLED 08/22/2007 ISAAC FUNES NORA R 401.1 ESSENTIAL HYPERTENSION BENIGN 08/22/2007 ISAAC FUNES, NORA R 492.8 EMPHYSEMA OTHER 08/22/2007 CALL DO, MARC K 250.03 DIABETES 1 UNCONTROLLED 08/22/2007 CALL DO, MARC K 401.1 ESSENTIAL HYPERTENSION BENIGN 08/22/2007 CALL DO, MARC K 492.8 EMPHYSEMA OTHER 08/22/2007 CALL DO, MARC K 250.03 DIABETES 1 UNCONTROLLED 08/22/2007 CALL DO, MARC K 401.1 ESSENTIAL HYPERTENSION BENIGN 08/22/2007 CALL DO, MARC K 492.8 EMPHYSEMA OTHER 08/22/2007 FLAKO DPM, RON 250.03 DIABETES 1 UNCONTROLLED 08/22/2007 FLAKO DPM, RON 401.1 ESSENTIAL HYPERTENSION BENIGN 08/22/2007 FLAKO DPM, RON 492.8 EMPHYSEMA OTHER 08/22/2007 ISAAC FUNES NORA R 250.03 DIABETES 1 UNCONTROLLED 08/22/2007 ISAAC BLIND LACER, NORA R 401.1 ESSENTIAL HYPERTENSION BENIGN 08/22/2007 ISAAC BLIND LACER, NORA R 492.8 EMPHYSEMA OTHER 08/22/2007 ISAAC FUNES, NORA R 250.03 DIABETES 1 UNCONTROLLED 08/22/2007 ISAAC FUNSE, NORA R 401.1 ESSENTIAL HYPERTENSION BENIGN 08/22/2007 ISAAC BLIND LACER, NORA R 492.8 EMPHYSEMA OTHER 08/22/2007 ISAAC BLIND LACER, NORA R 250.03 DIABETES 1 UNCONTROLLED 08/22/2007 ISAAC UFNES NORA R 401.1 ESSENTIAL HYPERTENSION BENIGN 08/22/2007 ISAAC BLIND LACER, NORA R 492.8 EMPHYSEMA OTHER 08/22/2007 AALIYAH BLIND LACER, MELVIN A 250.03 DIABETES 1 UNCONTROLLED 08/22/2007 AALIYAH BLIND LACER, MELVIN A 401.1 ESSENTIAL HYPERTENSION BENIGN 08/22/2007 AALIYAH BLIND LACER, MELVIN A 492.8 EMPHYSEMA OTHER 08/22/2007 CALL DO, MARC K 250.03 DIABETES 1 UNCONTROLLED 08/22/2007 CALL DO, MARC K 401.1 ESSENTIAL HYPERTENSION BENIGN 08/22/2007 CALL DO, MARC K 492.8 EMPHYSEMA OTHER 08/22/2007 ISAAC BLIND LACER, NORA R 250.03 DIABETES 1 UNCONTROLLED 08/22/2007 ISAAC BLIND LACER, NORA R 401.1 ESSENTIAL HYPERTENSION BENIGN 08/22/2007 ISAAC BLIND LACER, NORA R 492.8 EMPHYSEMA OTHER 08/22/2007 FLAKO DPM, RON 250.03 DIABETES 1 UNCONTROLLED 08/22/2007 FLAKO DPM, RON 401.1 ESSENTIAL HYPERTENSION BENIGN 08/22/2007 FLAKO DPM, RON 492.8 EMPHYSEMA OTHER 08/22/2007 FLAKO DPM, RON 250.03 DIABETES 1 UNCONTROLLED 08/22/2007 FLAKO DPM, RON 401.1 ESSENTIAL HYPERTENSION BENIGN 08/22/2007 FLAKO DPM, RON 492.8 EMPHYSEMA OTHER 08/22/2007 LEANDRO GONZALEZ MD 250.03 DIABETES 1 UNCONTROLLED 08/22/2007 LEANDRO GONZALEZ MD 401.1 ESSENTIAL HYPERTENSION BENIGN 08/22/2007 LEANDRO GONZALEZ MD 492.8 EMPHYSEMA OTHER 09/02/2007 MATTHIAS CALL DOA K 250.02 DIABETES MELLITUS TYPE 2 - UNCOMPLICATED, UNCONTROLLED 09/02/2007 ONEYDA LOJA MARC K 250.02 DIABETES MELLITUS TYPE 2 - UNCOMPLICATED, UNCONTROLLED 09/02/2007 ONEYDA LOJA MARC K 250.02 DIABETES MELLITUS TYPE 2 - UNCOMPLICATED, UNCONTROLLED 09/02/2007 ONEYDA LOJA MARC K 250.02 DIABETES MELLITUS TYPE 2 - UNCOMPLICATED, UNCONTROLLED 09/02/2007 250.02 DIABETES MELLITUS TYPE 2 - UNCOMPLICATED, UNCONTROLLED 09/02/2007 CALL DO MARC K 250.02 DIABETES MELLITUS TYPE 2 - UNCOMPLICATED, UNCONTROLLED 09/02/2007 250.02 DIABETES MELLITUS TYPE 2 - UNCOMPLICATED, UNCONTROLLED 09/02/2007 250.02 DIABETES MELLITUS TYPE 2 - UNCOMPLICATED, UNCONTROLLED 09/02/2007 ONEYDA LOJA MARC K 250.02 DIABETES MELLITUS TYPE 2 - UNCOMPLICATED, UNCONTROLLED 09/02/2007 250.02 DIABETES MELLITUS TYPE 2 - UNCOMPLICATED, UNCONTROLLED 09/02/2007 250.02 DIABETES MELLITUS TYPE 2 - UNCOMPLICATED, UNCONTROLLED 09/02/2007 250.02 DIABETES MELLITUS TYPE 2 - UNCOMPLICATED, UNCONTROLLED 09/02/2007 VARUN HARRISON APRN 250.02 DIABETES MELLITUS TYPE 2 - UNCOMPLICATED, UNCONTROLLED 09/02/2007 250.02 DIABETES MELLITUS TYPE 2 - UNCOMPLICATED, UNCONTROLLED 09/02/2007 250.02 DIABETES MELLITUS TYPE 2 - UNCOMPLICATED, UNCONTROLLED 09/02/2007 250.02 DIABETES MELLITUS TYPE 2 - UNCOMPLICATED, UNCONTROLLED 09/02/2007 250.02 DIABETES MELLITUS TYPE 2 - UNCOMPLICATED, UNCONTROLLED 09/02/2007 250.02 DIABETES MELLITUS TYPE 2 - UNCOMPLICATED, UNCONTROLLED 09/02/2007 CALL DO, MARC K 250.02 DIABETES MELLITUS TYPE 2 - UNCOMPLICATED, UNCONTROLLED 09/02/2007 CALL DO, MARC K 250.02 DIABETES MELLITUS TYPE 2 - UNCOMPLICATED, UNCONTROLLED 09/02/2007 CALL DO, MARC K 250.02 DIABETES MELLITUS TYPE 2 - UNCOMPLICATED, UNCONTROLLED 09/02/2007 CALL DO, MARC K 250.02 DIABETES MELLITUS TYPE 2 - UNCOMPLICATED, UNCONTROLLED 09/02/2007 CALL DO, MARC K 250.02 DIABETES MELLITUS TYPE 2 - UNCOMPLICATED, UNCONTROLLED 09/02/2007 CALL DO, MARC K 250.02 DIABETES MELLITUS TYPE 2 - UNCOMPLICATED, UNCONTROLLED 09/02/2007 CALL DO, MARC K 250.02 DIABETES MELLITUS TYPE 2 - UNCOMPLICATED, UNCONTROLLED 09/02/2007 WHITE DDS, CARMEN Camejo 250.02 DIABETES MELLITUS TYPE 2 - UNCOMPLICATED , UNCONTROLLED 09/02/2007 CALL DO, MARC K 250.02 DIABETES MELLITUS TYPE 2 - UNCOMPLICATED, UNCONTROLLED 09/02/2007 CALL DO, MARC K 250.02 DIABETES MELLITUS TYPE 2 - UNCOMPLICATED, UNCONTROLLED 09/02/2007 WHITE DDS, LIZBETH Devries 250.02 DIABETES MELLITUS TYPE 2 - UNCOMPLICATED , UNCONTROLLED 09/02/2007 WHITE DDS, CARMEN Camejo 250.02 DIABETES MELLITUS TYPE 2 - UNCOMPLICATED , UNCONTROLLED 09/02/2007 CALL DO, MARC K 250.02 DIABETES MELLITUS TYPE 2 - UNCOMPLICATED, UNCONTROLLED 09/02/2007 CALL DO, MARC K 250.02 DIABETES MELLITUS TYPE 2 - UNCOMPLICATED, UNCONTROLLED 09/02/2007 NORA GRAY APRN 250.02 DIABETES MELLITUS TYPE 2 - UNCOMPLICATED , UNCONTROLLED 09/02/2007 CALL DO, MARC K 250.02 DIABETES MELLITUS TYPE 2 - UNCOMPLICATED, UNCONTROLLED 09/02/2007 ONEYDA DO, MARC K 250.02 DIABETES MELLITUS TYPE 2 - UNCOMPLICATED, UNCONTROLLED 09/02/2007 FLAKO DPM, RON 250.02 DIABETES MELLITUS TYPE 2 - UNCOMPLICATED, UNCONTROLLED 09/02/2007 ISAAC BLIND LACER, NORA R 250.02 DIABETES MELLITUS TYPE 2 - UNCOMPLICATED , UNCONTROLLED 09/02/2007 ISAAC BLIND LACER, NORA R 250.02 DIABETES MELLITUS TYPE 2 - UNCOMPLICATED , UNCONTROLLED 09/02/2007 ISAAC BLIND LACER, NORA R 250.02 DIABETES MELLITUS TYPE 2 - UNCOMPLICATED , UNCONTROLLED 09/02/2007 AALIYAH BLIND LACER, MELVIN A 250.02 DIABETES MELLITUS TYPE 2 - UNCOMPLICATED , UNCONTROLLED 09/02/2007 ONEYDA DO, MARC K 250.02 DIABETES MELLITUS TYPE 2 - UNCOMPLICATED, UNCONTROLLED 09/02/2007 ISAAC BLIND LACER, NORA R 250.02 DIABETES MELLITUS TYPE 2 - UNCOMPLICATED , UNCONTROLLED 09/02/2007 FLAKO DPM, RON 250.02 DIABETES MELLITUS TYPE 2 - UNCOMPLICATED, UNCONTROLLED 09/02/2007 FLAKO DPM, RON 250.02 DIABETES MELLITUS TYPE 2 - UNCOMPLICATED, UNCONTROLLED 09/02/2007 CARLOS CHAMPION, LEANDRO 250.02 DIABETES MELLITUS TYPE 2 - UNCOMPLICATED, UNCONTROLLED 09/17/2007 CALL DOMATTHIASA K 477.9 RHINITIS ALLERGIC 09/17/2007 CALL DO, MARC K 477.9 RHINITIS ALLERGIC 09/17/2007 CALL DO, MARC K 477.9 RHINITIS ALLERGIC 09/17/2007 CALL DO, MARC K 477.9 RHINITIS ALLERGIC 09/17/2007 477.9 RHINITIS ALLERGIC 09/17/2007 CALL DO, MARC K 477.9 RHINITIS ALLERGIC 09/17/2007 477.9 RHINITIS ALLERGIC 09/17/2007 477.9 RHINITIS ALLERGIC 09/17/2007 CALL DO, MARC K 477.9 RHINITIS ALLERGIC 09/17/2007 477.9 RHINITIS ALLERGIC 09/17/2007 477.9 RHINITIS ALLERGIC 09/17/2007 477.9 RHINITIS ALLERGIC 09/17/2007 VARUN HARRISON APRN 477.9 RHINITIS ALLERGIC 09/17/2007 477.9 RHINITIS ALLERGIC 09/17/2007 477.9 RHINITIS ALLERGIC 09/17/2007 477.9 RHINITIS ALLERGIC 09/17/2007 477.9 RHINITIS ALLERGIC 09/17/2007 477.9 RHINITIS ALLERGIC 09/17/2007 CALL DO, MARC K 477.9 RHINITIS ALLERGIC 09/17/2007 CALL DO, MARC K 477.9 RHINITIS ALLERGIC 09/17/2007 CALL DO, MARC K 477.9 RHINITIS ALLERGIC 09/17/2007 CALL DO, MARC K 477.9 RHINITIS ALLERGIC 09/17/2007 CALL DO, MARC K 477.9 RHINITIS ALLERGIC 09/17/2007 CALL DO, MARC K 477.9 RHINITIS ALLERGIC 09/17/2007 CALL DO, MARC K 477.9 RHINITIS ALLERGIC 09/17/2007 WHITE DDS, CARMEN D 477.9 RHINITIS ALLERGIC 09/17/2007 CALL DO, MARC K 477.9 RHINITIS ALLERGIC 09/17/2007 CALL DO, MARC K 477.9 RHINITIS ALLERGIC 09/17/2007 WHITE DDS, LIZBETH J 477.9 RHINITIS ALLERGIC 09/17/2007 WHITE DDS, CARMEN D 477.9 RHINITIS ALLERGIC 09/17/2007 CALL DO, MARC K 477.9 RHINITIS ALLERGIC 09/17/2007 CALL DO, MARC K 477.9 RHINITIS ALLERGIC 09/17/2007 ISAAC BLIND LACER, NORA R 477.9 RHINITIS ALLERGIC 09/17/2007 CALL DO, MARC K 477.9 RHINITIS ALLERGIC 09/17/2007 CALL DO, MARC K 477.9 RHINITIS ALLERGIC 09/17/2007 FLAKO DPM, RON 477.9 RHINITIS ALLERGIC 09/17/2007 ISAAC BLIND LACER, NORA R 477.9 RHINITIS ALLERGIC 09/17/2007 ISAAC BLIND LACER, NORA R 477.9 RHINITIS ALLERGIC 09/17/2007 ISAAC BLIND LACER, NORA R 477.9 RHINITIS ALLERGIC 09/17/2007 AALIYAH BLIND LACER, MELVIN A 477.9 RHINITIS ALLERGIC 09/17/2007 CALL DO, MARC K 477.9 RHINITIS ALLERGIC 09/17/2007 ISAAC BLIND LACER, NORA R 477.9 RHINITIS ALLERGIC 09/17/2007 FLAKO DPM, RON 477.9 RHINITIS ALLERGIC 09/17/2007 FLAKO DPM, RON 477.9 RHINITIS ALLERGIC 09/17/2007 LEANDRO GONZALEZ MD 477.9 RHINITIS ALLERGIC 09/24/2007 CALL DO, MARC K 244.9 HYPOTHYROIDISM 09/24/2007 CALL DO, MARC K 244.9 HYPOTHYROIDISM 09/24/2007 CALL DO, MARC K 244.9 HYPOTHYROIDISM 09/24/2007 CALL DO, MARC K 244.9 HYPOTHYROIDISM 09/24/2007 244.9 HYPOTHYROIDISM 09/24/2007 CALL DO, MARC K 244.9 HYPOTHYROIDISM 09/24/2007 244.9 HYPOTHYROIDISM 09/24/2007 244.9 HYPOTHYROIDISM 09/24/2007 CALL DO, MARC K 244.9 HYPOTHYROIDISM 09/24/2007 244.9 HYPOTHYROIDISM 09/24/2007 244.9 HYPOTHYROIDISM 09/24/2007 244.9 HYPOTHYROIDISM 09/24/2007 VARUN HARRISON APRN 244.9 HYPOTHYROIDISM 09/24/2007 244.9 HYPOTHYROIDISM 09/24/2007 244.9 HYPOTHYROIDISM 09/24/2007 244.9 HYPOTHYROIDISM 09/24/2007 244.9 HYPOTHYROIDISM 09/24/2007 244.9 HYPOTHYROIDISM 09/24/2007 CALL DO, MARC K 244.9 HYPOTHYROIDISM 09/24/2007 CALL DO, MARC K 244.9 HYPOTHYROIDISM 09/24/2007 CALL DO, MARC K 244.9 HYPOTHYROIDISM 09/24/2007 CALL DO, MARC K 244.9 HYPOTHYROIDISM 09/24/2007 CALL DO, MARC K 244.9 HYPOTHYROIDISM 09/24/2007 CALL DO, MARC K 244.9 HYPOTHYROIDISM 09/24/2007 CALL DO, MARC K 244.9 HYPOTHYROIDISM 09/24/2007 WHITE DDS, CARMEN D 244.9 HYPOTHYROIDISM 09/24/2007 CALL DO, MARC K 244.9 HYPOTHYROIDISM 09/24/2007 CALL DO, MARC K 244.9 HYPOTHYROIDISM 09/24/2007 WHITE DDS, LIZBETH J 244.9 HYPOTHYROIDISM 09/24/2007 WHITE DDS, CARMEN D 244.9 HYPOTHYROIDISM 09/24/2007 CALL DO, MARC K 244.9 HYPOTHYROIDISM 09/24/2007 CALL DO, MARC K 244.9 HYPOTHYROIDISM 09/24/2007 JOSE GRAY APRNINA R 244.9 HYPOTHYROIDISM 09/24/2007 CALL DO, MARC K 244.9 HYPOTHYROIDISM 09/24/2007 CALL DO, MARC K 244.9 HYPOTHYROIDISM 09/24/2007 FLAKO DPM, RON 244.9 HYPOTHYROIDISM 09/24/2007 NORA GRAY APRN R 244.9 HYPOTHYROIDISM 09/24/2007 JOSE GRAY APRNINA R 244.9 HYPOTHYROIDISM 09/24/2007 ISAAC BLIND LACER, NORA R 244.9 HYPOTHYROIDISM 09/24/2007 AALIYAH BLIND LACER, MELVIN A 244.9 HYPOTHYROIDISM 09/24/2007 CALL DO, MARC K 244.9 HYPOTHYROIDISM 09/24/2007 ISAAC BLIND LACER, NORA R 244.9 HYPOTHYROIDISM 09/24/2007 FLAKO DPM, RON 244.9 HYPOTHYROIDISM 09/24/2007 FLAKO DPM, RON 244.9 HYPOTHYROIDISM 09/24/2007 LEANDRO GONZALEZ MD 244.9 HYPOTHYROIDISM 12/17/2007 CALL DO, MARC K 493.90 ASTHMA UNSPECIFIED 12/17/2007 CALL DO, MARC K 493.90 ASTHMA UNSPECIFIED 12/17/2007 CALL DO, MARC K 493.90 ASTHMA UNSPECIFIED 12/17/2007 CALL DO, MARC K 493.90 ASTHMA UNSPECIFIED 12/17/2007 493.90 ASTHMA UNSPECIFIED 12/17/2007 CALL DO, MARC K 493.90 ASTHMA UNSPECIFIED 12/17/2007 493.90 ASTHMA UNSPECIFIED 12/17/2007 493.90 ASTHMA UNSPECIFIED 12/17/2007 CALL DO, MARC K 493.90 ASTHMA UNSPECIFIED 12/17/2007 493.90 ASTHMA UNSPECIFIED 12/17/2007 493.90 ASTHMA UNSPECIFIED 12/17/2007 493.90 ASTHMA UNSPECIFIED 12/17/2007 VARUN HARRISON APRN 493.90 ASTHMA UNSPECIFIED 12/17/2007 493.90 ASTHMA UNSPECIFIED 12/17/2007 493.90 ASTHMA UNSPECIFIED 12/17/2007 493.90 ASTHMA UNSPECIFIED 12/17/2007 493.90 ASTHMA UNSPECIFIED 12/17/2007 493.90 ASTHMA UNSPECIFIED 12/17/2007 CALL DO, MARC K 493.90 ASTHMA UNSPECIFIED 12/17/2007 CALL DO, MARC K 493.90 ASTHMA UNSPECIFIED 12/17/2007 CALL DO, MARC K 493.90 ASTHMA UNSPECIFIED 12/17/2007 CALL DO, MARC K 493.90 ASTHMA UNSPECIFIED 12/17/2007 CALL DO, MARC K 493.90 ASTHMA UNSPECIFIED 12/17/2007 CALL DO, MARC K 493.90 ASTHMA UNSPECIFIED 12/17/2007 CALL DO, MARC K 493.90 ASTHMA UNSPECIFIED 12/17/2007 BG DDS, CARMEN Camejo 493.90 ASTHMA UNSPECIFIED 12/17/2007 CALL DO, MARC K 493.90 ASTHMA UNSPECIFIED 12/17/2007 CALL DO, MARC K 493.90 ASTHMA UNSPECIFIED 12/17/2007 BG DDS, LIZBETH Devries 493.90 ASTHMA UNSPECIFIED 12/17/2007 WHITE DDS, CARMEN Camejo 493.90 ASTHMA UNSPECIFIED 12/17/2007 CALL DO, MARC K 493.90 ASTHMA UNSPECIFIED 12/17/2007 CALL DO, MARC K 493.90 ASTHMA UNSPECIFIED 12/17/2007 ISAAC BLIND LACER, NORA R 493.90 ASTHMA UNSPECIFIED 12/17/2007 CALL DO, MARC K 493.90 ASTHMA UNSPECIFIED 12/17/2007 CALL DO, MARC K 493.90 ASTHMA UNSPECIFIED 12/17/2007 FLAKO DPM, RON 493.90 ASTHMA UNSPECIFIED 12/17/2007 ISAAC BLIND LACER, NORA R 493.90 ASTHMA UNSPECIFIED 12/17/2007 ISAAC BLIND LACER, NORA R 493.90 ASTHMA UNSPECIFIED 12/17/2007 ISAAC BLIND LACER, NORA R 493.90 ASTHMA UNSPECIFIED 12/17/2007 AALIYAH BLIND LACER, MELVIN A 493.90 ASTHMA UNSPECIFIED 12/17/2007 CALL DO, MARC K 493.90 ASTHMA UNSPECIFIED 12/17/2007 ISAAC BLIND LACER, NORA R 493.90 ASTHMA UNSPECIFIED 12/17/2007 FLAKO DPM, RON 493.90 ASTHMA UNSPECIFIED 12/17/2007 FLAKO DPM, RON 493.90 ASTHMA UNSPECIFIED 12/17/2007 CARLOS CHAMPION, LEANDRO 493.90 ASTHMA UNSPECIFIED 04/01/2008 CALL DO, MARC K 780.4 Vertigo 04/01/2008 CALL DO, MARC K 780.4 Vertigo 04/01/2008 CALL DO, MARC K 780.4 Vertigo 04/01/2008 CALL DO, MARC K 780.4 Vertigo 04/01/2008 780.4 Vertigo 04/01/2008 CALL DO, MARC K 780.4 Vertigo 04/01/2008 780.4 Vertigo 04/01/2008 780.4 Vertigo 04/01/2008 CALL DO, MARC K 780.4 Vertigo 04/01/2008 780.4 Vertigo 04/01/2008 780.4 Vertigo 04/01/2008 780.4 Vertigo 04/01/2008 VARUN HARRISON APRN 780.4 Vertigo 04/01/2008 780.4 Vertigo 04/01/2008 780.4 Vertigo 04/01/2008 780.4 Vertigo 04/01/2008 780.4 Vertigo 04/01/2008 780.4 Vertigo 04/01/2008 CALL DO, MARC K 780.4 Vertigo 04/01/2008 CALL DO, MARC K 780.4 Vertigo 04/01/2008 CALL DO, MARC K 780.4 Vertigo 04/01/2008 CALL DO, MARC K 780.4 Vertigo 04/01/2008 CALL DO, MARC K 780.4 Vertigo 04/01/2008 CALL DO, MARC K 780.4 Vertigo 04/01/2008 CALL DO, MARC K 780.4 Vertigo 04/01/2008 WHITE DDS, CARMEN Camejo 780.4 Vertigo 04/01/2008 CALL DO, MARC K 780.4 Vertigo 04/01/2008 CALL DO, MARC K 780.4 Vertigo 04/01/2008 WHITE DDS, LIZBETH J 780.4 Vertigo 04/01/2008 WHITE DDS, CARMEN Camejo 780.4 Vertigo 04/01/2008 CALL DO, MARC K 780.4 Vertigo 04/01/2008 CALL DO, MARC K 780.4 Vertigo 04/01/2008 ISAAC BLIND LACER, NORA R 780.4 Vertigo 04/01/2008 CALL DO, MARC K 780.4 Vertigo 04/01/2008 CALL DO, MARC K 780.4 Vertigo 04/01/2008 FLAKO DPM, RON 780.4 Vertigo 04/01/2008 ISAAC BLIND LACER, NORA R 780.4 Vertigo 04/01/2008 ISAAC BLIND LACER, NORA R 780.4 Vertigo 04/01/2008 ISAAC BLIND LACER, NORA R 780.4 Vertigo 04/01/2008 AALIYAH BLIND LACER, MELVIN A 780.4 Vertigo 04/01/2008 CALL DO, MARC K 780.4 Vertigo 04/01/2008 ISAAC BLIND LACER, NORA R 780.4 Vertigo 04/01/2008 FLAKO DPM, RON 780.4 Vertigo 04/01/2008 FLAKO DPM, RON 780.4 Vertigo 04/01/2008 CARLOS CHAMPION, LEANDRO 780.4 Vertigo 06/19/2008 CALL DO, MARC K 611.0 MASTITIS 06/19/2008 CALL DO, MARC K 611.72 Breast Lump Or Mass Right 06/19/2008 CALL DO, MARC K 611.0 MASTITIS 06/19/2008 CALL DO, MARC K 611.72 Breast Lump Or Mass Right 06/19/2008 CALL DO, MARC K 611.0 MASTITIS 06/19/2008 CALL DO, MARC K 611.72 Breast Lump Or Mass Right 06/19/2008 CALL DO, MARC K 611.0 MASTITIS 06/19/2008 CALL DO, MARC K 611.72 Breast Lump Or Mass Right 06/19/2008 611.0 MASTITIS 06/19/2008 611.72 Breast Lump Or Mass Right 06/19/2008 CALL DO, MARC K 611.0 MASTITIS 06/19/2008 CALL DO, MARC K 611.72 Breast Lump Or Mass Right 06/19/2008 611.0 MASTITIS 06/19/2008 611.72 Breast Lump Or Mass Right 06/19/2008 611.0 MASTITIS 06/19/2008 611.72 Breast Lump Or Mass Right 06/19/2008 CALL DO, MARC K 611.0 MASTITIS 06/19/2008 CALL DO, MARC K 611.72 Breast Lump Or Mass Right 06/19/2008 611.0 MASTITIS 06/19/2008 611.72 Breast Lump Or Mass Right 06/19/2008 611.0 MASTITIS 06/19/2008 611.72 Breast Lump Or Mass Right 06/19/2008 611.0 MASTITIS 06/19/2008 611.72 Breast Lump Or Mass Right 06/19/2008 VARUN HARRISON APRN S 611.0 MASTITIS 06/19/2008 VARUN HARRISON APRN S 611.72 Breast Lump Or Mass Right 06/19/2008 611.0 MASTITIS 06/19/2008 611.72 Breast Lump Or Mass Right 06/19/2008 611.0 MASTITIS 06/19/2008 611.72 Breast Lump Or Mass Right 06/19/2008 611.0 MASTITIS 06/19/2008 611.72 Breast Lump Or Mass Right 06/19/2008 611.0 MASTITIS 06/19/2008 611.72 Breast Lump Or Mass Right 06/19/2008 611.0 MASTITIS 06/19/2008 611.72 Breast Lump Or Mass Right 06/19/2008 CALL DO, MARC K 611.0 MASTITIS 06/19/2008 CALL DO, MARC K 611.72 Breast Lump Or Mass Right 06/19/2008 CALL DO, MARC K 611.0 MASTITIS 06/19/2008 CALL DO, MARC K 611.72 Breast Lump Or Mass Right 06/19/2008 CALL DO, MARC K 611.0 MASTITIS 06/19/2008 CALL DO, MARC K 611.72 Breast Lump Or Mass Right 06/19/2008 CALL DO, MARC K 611.0 MASTITIS 06/19/2008 CALL DO, MARC K 611.72 Breast Lump Or Mass Right 06/19/2008 CALL DO, MARC K 611.0 MASTITIS 06/19/2008 CALL DO, MARC K 611.72 Breast Lump Or Mass Right 06/19/2008 CALL DO, MARC K 611.0 MASTITIS 06/19/2008 CALL DO, MARC K 611.72 Breast Lump Or Mass Right 06/19/2008 CALL DO, MARC K 611.0 MASTITIS 06/19/2008 CALL DO, MARC K 611.72 Breast Lump Or Mass Right 06/19/2008 WHITE DDS, CARMEN D 611.0 MASTITIS 06/19/2008 WHITE DDS, CARMEN D 611.72 Breast Lump Or Mass Right 06/19/2008 CALL DO, MARC K 611.0 MASTITIS 06/19/2008 CALL DO, MARC K 611.72 Breast Lump Or Mass Right 06/19/2008 CALL DO, MARC K 611.0 MASTITIS 06/19/2008 CALL DO, MARC K 611.72 Breast Lump Or Mass Right 06/19/2008 WHITE DDS, LIZBETH J 611.0 MASTITIS 06/19/2008 WHITE DDS, LIZBETH J 611.72 Breast Lump Or Mass Right 06/19/2008 WHITE DDS, CARMEN D 611.0 MASTITIS 06/19/2008 WHITE DDS, CARMEN D 611.72 Breast Lump Or Mass Right 06/19/2008 CALL DO, MARC K 611.0 MASTITIS 06/19/2008 CALL DO, MARC K 611.72 Breast Lump Or Mass Right 06/19/2008 CALL DO, MARC K 611.0 MASTITIS 06/19/2008 CALL DO, MARC K 611.72 Breast Lump Or Mass Right 06/19/2008 ISAAC BLIND LACER, NORA R 611.0 MASTITIS 06/19/2008 ISAAC BLIND LACER, NORA R 611.72 Breast Lump Or Mass Right 06/19/2008 CALL DO, MARC K 611.0 MASTITIS 06/19/2008 CALL DO, MARC K 611.72 Breast Lump Or Mass Right 06/19/2008 CALL DO, MARC K 611.0 MASTITIS 06/19/2008 CALL DO, MARC K 611.72 Breast Lump Or Mass Right 06/19/2008 FLAKO DPM, RON 611.0 MASTITIS 06/19/2008 FLAKO DPM, RON 611.72 Breast Lump Or Mass Right 06/19/2008 ISAAC BLIND LACER, NORA R 611.0 MASTITIS 06/19/2008 ISAAC BLIND LACER, NORA R 611.72 Breast Lump Or Mass Right 06/19/2008 ISAAC BLIND LACER, NORA R 611.0 MASTITIS 06/19/2008 ISAAC BLIND LACER, NORA R 611.72 Breast Lump Or Mass Right 06/19/2008 ISAAC BLIND LACER, NORA R 611.0 MASTITIS 06/19/2008 ISAAC BLIND LACER, NORA R 611.72 Breast Lump Or Mass Right 06/19/2008 AALIYAH BLIND LACER, MELVIN A 611.0 MASTITIS 06/19/2008 AALIYAH BLIND LACER, MELVIN A 611.72 Breast Lump Or Mass Right 06/19/2008 CALL DO, MARC K 611.0 MASTITIS 06/19/2008 CALL DO, MARC K 611.72 Breast Lump Or Mass Right 06/19/2008 ISAAC BLIND LACER, NORA R 611.0 MASTITIS 06/19/2008 ISAAC BLIND LACER, NORA R 611.72 Breast Lump Or Mass Right 06/19/2008 FLAKO DPM, RON 611.0 MASTITIS 06/19/2008 FLAKO DPM, RON 611.72 Breast Lump Or Mass Right 06/19/2008 FLAKO DPM, RON 611.0 MASTITIS 06/19/2008 FLAKO AGUIAR, RON 611.72 Breast Lump Or Mass Right 06/19/2008 LEANDRO GONZALEZ MD 611.0 MASTITIS 06/19/2008 LEANDRO GONZALEZ MD 611.72 Breast Lump Or Mass Right 07/20/2008 CALL DO, MARC K 174.9 BREAST CANCER 07/20/2008 CALL DO, MARC K 174.9 BREAST CANCER 07/20/2008 CALL DO, MARC K 174.9 BREAST CANCER 07/20/2008 CALL DO, MARC K 174.9 BREAST CANCER 07/20/2008 174.9 BREAST CANCER 07/20/2008 CALL DO, MARC K 174.9 BREAST CANCER 07/20/2008 174.9 BREAST CANCER 07/20/2008 174.9 BREAST CANCER 07/20/2008 CALL DO, MARC K 174.9 BREAST CANCER 07/20/2008 174.9 BREAST CANCER 07/20/2008 174.9 BREAST CANCER 07/20/2008 174.9 BREAST CANCER 07/20/2008 VARUN HARRISON APRN 174.9 BREAST CANCER 07/20/2008 174.9 BREAST CANCER 07/20/2008 174.9 BREAST CANCER 07/20/2008 174.9 BREAST CANCER 07/20/2008 174.9 BREAST CANCER 07/20/2008 174.9 BREAST CANCER 07/20/2008 CALL DO, MARC K 174.9 BREAST CANCER 07/20/2008 CALL DO, MARC K 174.9 BREAST CANCER 07/20/2008 CALL DO, MARC K 174.9 BREAST CANCER 07/20/2008 CALL DO, MARC K 174.9 BREAST CANCER 07/20/2008 CALL DO, MARC K 174.9 BREAST CANCER 07/20/2008 CALL DO, MARC K 174.9 BREAST CANCER 07/20/2008 CALL DO, MARC K 174.9 BREAST CANCER 07/20/2008 WHITE DDS, CARMEN Camejo 174.9 BREAST CANCER 07/20/2008 CALL DO, MARC K 174.9 BREAST CANCER 07/20/2008 CALL DO, MARC K 174.9 BREAST CANCER 07/20/2008 WHITE DDSLIZBETH 174.9 BREAST CANCER 07/20/2008 WHITE DDS, CARMEN Camejo 174.9 BREAST CANCER 07/20/2008 CALL DO, MARC K 174.9 BREAST CANCER 07/20/2008 CALL DO, MARC K 174.9 BREAST CANCER 07/20/2008 ISAAC BLIND LACER, NORA R 174.9 BREAST CANCER 07/20/2008 CALL DO, MARC K 174.9 BREAST CANCER 07/20/2008 CALL DO, MARC K 174.9 BREAST CANCER 07/20/2008 FLAKO DPM, RON 174.9 BREAST CANCER 07/20/2008 ISAAC BLIND LACER, NORA R 174.9 BREAST CANCER 07/20/2008 ISAAC BLIND LACER, NORA R 174.9 BREAST CANCER 07/20/2008 ISAAC BLIND LACER, NORA R 174.9 BREAST CANCER 07/20/2008 AALIYAH BLIND LACER, MELVIN A 174.9 BREAST CANCER 07/20/2008 CALL DO, MARC K 174.9 BREAST CANCER 07/20/2008 ISAAC BLIND LACER, NORA R 174.9 BREAST CANCER 07/20/2008 FLAKO DPM, RON 174.9 BREAST CANCER 07/20/2008 FLAKO DPM, RON 174.9 BREAST CANCER 07/20/2008 CARLOS CHAMPION, LEANDRO 174.9 BREAST CANCER 11/15/2008 Ot 174.9 11/15/2008 Ot 196.3 11/15/2008 Ot 288.03 11/15/2008 Ot E933.1 11/15/2008 Ot V58.11 12/21/2008 CALL DO, MARC K 380.4 Cerumen Impaction 12/21/2008 CALL DO, MARC K 380.4 Cerumen Impaction 12/21/2008 CALL DO, MARC K 380.4 Cerumen Impaction 12/21/2008 CALL DO, MARC K 380.4 Cerumen Impaction 12/21/2008 380.4 Cerumen Impaction 12/21/2008 CALL DO, MARC K 380.4 Cerumen Impaction 12/21/2008 380.4 Cerumen Impaction 12/21/2008 380.4 Cerumen Impaction 12/21/2008 CALL DO, MARC K 380.4 Cerumen Impaction 12/21/2008 380.4 Cerumen Impaction 12/21/2008 380.4 Cerumen Impaction 12/21/2008 380.4 Cerumen Impaction 12/21/2008 VARUN HARRISON APRN 380.4 Cerumen Impaction 12/21/2008 380.4 Cerumen Impaction 12/21/2008 380.4 Cerumen Impaction 12/21/2008 380.4 Cerumen Impaction 12/21/2008 380.4 Cerumen Impaction 12/21/2008 380.4 Cerumen Impaction 12/21/2008 CALL DO, MARC K 380.4 Cerumen Impaction 12/21/2008 CALL DO, MARC K 380.4 Cerumen Impaction 12/21/2008 CALL DO, MARC K 380.4 Cerumen Impaction 12/21/2008 CALL DO, MARC K 380.4 Cerumen Impaction 12/21/2008 CALL DO, MARC K 380.4 Cerumen Impaction 12/21/2008 CALL DO, MARC K 380.4 Cerumen Impaction 12/21/2008 CALL DO, MARC K 380.4 Cerumen Impaction 12/21/2008 WHITE DDS, CARMEN D 380.4 Cerumen Impaction 12/21/2008 CALL DO, MARC K 380.4 Cerumen Impaction 12/21/2008 CALL DO, MARC K 380.4 Cerumen Impaction 12/21/2008 WHITE DDS, LIZBETH J 380.4 Cerumen Impaction 12/21/2008 WHITE DDS, CARMEN D 380.4 Cerumen Impaction 12/21/2008 CALL DO, MARC K 380.4 Cerumen Impaction 12/21/2008 CALL DO, MARC K 380.4 Cerumen Impaction 12/21/2008 ISAAC BLIND LACER, NORA R 380.4 Cerumen Impaction 12/21/2008 CALL DO, MARC K 380.4 Cerumen Impaction 12/21/2008 CALL DO, MARC K 380.4 Cerumen Impaction 12/21/2008 FLAKO DPM, RON 380.4 Cerumen Impaction 12/21/2008 ISAAC BLIND LACER, NORA R 380.4 Cerumen Impaction 12/21/2008 ISAAC BLIND LACER, NORA R 380.4 Cerumen Impaction 12/21/2008 ISAAC BLIND LACER, NORA R 380.4 Cerumen Impaction 12/21/2008 AALIYAH BLIND LACER, MELVIN A 380.4 Cerumen Impaction 12/21/2008 CALL DO, MARC K 380.4 Cerumen Impaction 12/21/2008 ISAAC FUNES, NORA Gordon 380.4 Cerumen Impaction 12/21/2008 FLAKO DPM, RON 380.4 Cerumen Impaction 12/21/2008 FLAKO DPM, RON 380.4 Cerumen Impaction 12/21/2008 LEANDRO GONZALEZ MD 380.4 Cerumen Impaction 03/01/2009 Ot 174.9 03/01/2009 Ot 196.3 03/01/2009 Ot V04.81 03/01/2009 Ot V58.11 03/01/2009 Ot V58.69 03/01/2009 Ot V86.0 06/01/2009 Ot 174.9 06/01/2009 Ot 196.3 06/01/2009 Ot V49.81 06/01/2009 Ot V58.11 09/05/2009 Ot 174.9 09/05/2009 Ot 196.3 09/05/2009 Ot 733.90 09/05/2009 Ot 784.2 09/05/2009 Ot V15.3 09/05/2009 Ot V58.69 09/05/2009 Ot V86.0 09/05/2009 Ot V87.41 09/10/2009 CALL DO, MARC K 703.0 Ingrown Toenail (infection) 09/10/2009 CALL DO, MARC K 703.0 Ingrown Toenail (infection) 09/10/2009 CALL DO, MARC K 703.0 Ingrown Toenail (infection) 09/10/2009 CALL DO, MARC K 703.0 Ingrown Toenail (infection) 09/10/2009 703.0 Ingrown Toenail (infection) 09/10/2009 CALL DO, MARC K 703.0 Ingrown Toenail (infection) 09/10/2009 703.0 Ingrown Toenail (infection) 09/10/2009 703.0 Ingrown Toenail (infection) 09/10/2009 CALL DO, MARC K 703.0 Ingrown Toenail (infection) 09/10/2009 703.0 Ingrown Toenail (infection) 09/10/2009 703.0 Ingrown Toenail (infection) 09/10/2009 703.0 Ingrown Toenail (infection) 09/10/2009 MAKENZIE HARRISON APRNA S 703.0 Ingrown Toenail (infection) 09/10/2009 703.0 Ingrown Toenail (infection) 09/10/2009 703.0 Ingrown Toenail (infection) 09/10/2009 703.0 Ingrown Toenail (infection) 09/10/2009 703.0 Ingrown Toenail (infection) 09/10/2009 703.0 Ingrown Toenail (infection) 09/10/2009 CALL DO, MARC K 703.0 Ingrown Toenail (infection) 09/10/2009 CALL DO, MARC K 703.0 Ingrown Toenail (infection) 09/10/2009 CALL DO, MARC K 703.0 Ingrown Toenail (infection) 09/10/2009 CALL DO, MARC K 703.0 Ingrown Toenail (infection) 09/10/2009 CALL DO, MARC K 703.0 Ingrown Toenail (infection) 09/10/2009 CALL DO, MARC K 703.0 Ingrown Toenail (infection) 09/10/2009 CALL DO, MARC K 703.0 Ingrown Toenail (infection) 09/10/2009 WHITE DDS, CARMEN D 703.0 Ingrown Toenail (infection) 09/10/2009 CALL DO, MARC K 703.0 Ingrown Toenail (infection) 09/10/2009 CALL DO, MARC K 703.0 Ingrown Toenail (infection) 09/10/2009 WHITE DDS, LIZBETH Devries 703.0 Ingrown Toenail (infection) 09/10/2009 WHITE DDS, CARMEN D 703.0 Ingrown Toenail (infection) 09/10/2009 CALL DO, MARC K 703.0 Ingrown Toenail (infection) 09/10/2009 CALL DO, MARC K 703.0 Ingrown Toenail (infection) 09/10/2009 ISAAC GARYN, NORA Gordon 703.0 Ingrown Toenail (infection) 09/10/2009 CALL DO, MARC K 703.0 Ingrown Toenail (infection) 09/10/2009 CALL DO, MARC K 703.0 Ingrown Toenail (infection) 09/10/2009 FLAKO DPM, RON 703.0 Ingrown Toenail (infection) 09/10/2009 ISAAC BLIND LACER, NORA R 703.0 Ingrown Toenail (infection) 09/10/2009 ISAAC BLIND LACER, NORA R 703.0 Ingrown Toenail (infection) 09/10/2009 ISAAC BLIND LACER, NORA R 703.0 Ingrown Toenail (infection) 09/10/2009 AALIYAH BLIND LACER, MELVIN A 703.0 Ingrown Toenail (infection) 09/10/2009 CALL DO, MARC K 703.0 Ingrown Toenail (infection) 09/10/2009 ISAAC BLIND LACER, NORA R 703.0 Ingrown Toenail (infection) 09/10/2009 FLAKO DPM, RON 703.0 Ingrown Toenail (infection) 09/10/2009 FLAKO DPM, RON 703.0 Ingrown Toenail (infection) 09/10/2009 LEANDRO GONZALEZ MD 703.0 Ingrown Toenail (infection) 10/08/2009 CALL DO, MARC K 110.1 ONYCHOMYCOSIS 10/08/2009 CALL DO, MARC K 703.8 ONYCHOCRYPTOSIS 10/08/2009 CALL DO, MARC K 110.1 ONYCHOMYCOSIS 10/08/2009 CALL DO, MARC K 703.8 ONYCHOCRYPTOSIS 10/08/2009 CALL DO, MARC K 110.1 ONYCHOMYCOSIS 10/08/2009 CALL DO, MARC K 703.8 ONYCHOCRYPTOSIS 10/08/2009 CALL DO, MARC K 110.1 ONYCHOMYCOSIS 10/08/2009 CALL DO, MARC K 703.8 ONYCHOCRYPTOSIS 10/08/2009 110.1 ONYCHOMYCOSIS 10/08/2009 703.8 ONYCHOCRYPTOSIS 10/08/2009 CALL DO, MARC K 110.1 ONYCHOMYCOSIS 10/08/2009 CALL DO, MARC K 703.8 ONYCHOCRYPTOSIS 10/08/2009 110.1 ONYCHOMYCOSIS 10/08/2009 703.8 ONYCHOCRYPTOSIS 10/08/2009 110.1 ONYCHOMYCOSIS 10/08/2009 703.8 ONYCHOCRYPTOSIS 10/08/2009 CALL DO, MARC K 110.1 ONYCHOMYCOSIS 10/08/2009 CALL DO, MARC K 703.8 ONYCHOCRYPTOSIS 10/08/2009 110.1 ONYCHOMYCOSIS 10/08/2009 703.8 ONYCHOCRYPTOSIS 10/08/2009 110.1 ONYCHOMYCOSIS 10/08/2009 703.8 ONYCHOCRYPTOSIS 10/08/2009 110.1 ONYCHOMYCOSIS 10/08/2009 703.8 ONYCHOCRYPTOSIS 10/08/2009 CHRISTY BLIND LACER, VARUN S 110.1 ONYCHOMYCOSIS 10/08/2009 CHRISTY BLIND LACER, VARUN S 703.8 ONYCHOCRYPTOSIS 10/08/2009 110.1 ONYCHOMYCOSIS 10/08/2009 703.8 ONYCHOCRYPTOSIS 10/08/2009 110.1 ONYCHOMYCOSIS 10/08/2009 703.8 ONYCHOCRYPTOSIS 10/08/2009 110.1 ONYCHOMYCOSIS 10/08/2009 703.8 ONYCHOCRYPTOSIS 10/08/2009 110.1 ONYCHOMYCOSIS 10/08/2009 703.8 ONYCHOCRYPTOSIS 10/08/2009 110.1 ONYCHOMYCOSIS 10/08/2009 703.8 ONYCHOCRYPTOSIS 10/08/2009 CALL DO, MARC K 110.1 ONYCHOMYCOSIS 10/08/2009 CALL DO, MARC K 703.8 ONYCHOCRYPTOSIS 10/08/2009 CALL DO, MARC K 110.1 ONYCHOMYCOSIS 10/08/2009 CALL DO, MARC K 703.8 ONYCHOCRYPTOSIS 10/08/2009 CALL DO, MARC K 110.1 ONYCHOMYCOSIS 10/08/2009 CALL DO, MARC K 703.8 ONYCHOCRYPTOSIS 10/08/2009 CALL DO, MARC K 110.1 ONYCHOMYCOSIS 10/08/2009 CALL DO, MARC K 703.8 ONYCHOCRYPTOSIS 10/08/2009 CALL DO, MARC K 110.1 ONYCHOMYCOSIS 10/08/2009 CALL DO, MARC K 703.8 ONYCHOCRYPTOSIS 10/08/2009 CALL DO, MARC K 110.1 ONYCHOMYCOSIS 10/08/2009 CALL DO, MARC K 703.8 ONYCHOCRYPTOSIS 10/08/2009 CALL DO, MARC K 110.1 ONYCHOMYCOSIS 10/08/2009 CALL DO, MARC K 703.8 ONYCHOCRYPTOSIS 10/08/2009 WHITE DDS, CARMEN D 110.1 ONYCHOMYCOSIS 10/08/2009 WHITE DDS, CARMEN D 703.8 ONYCHOCRYPTOSIS 10/08/2009 CALL DO, MARC K 110.1 ONYCHOMYCOSIS 10/08/2009 CALL DO, MARC K 703.8 ONYCHOCRYPTOSIS 10/08/2009 CALL DO, MARC K 110.1 ONYCHOMYCOSIS 10/08/2009 CALL DO, MARC K 703.8 ONYCHOCRYPTOSIS 10/08/2009 WHITE DDS, LIZBETH J 110.1 ONYCHOMYCOSIS 10/08/2009 WHITE DDS, LIZBETH J 703.8 ONYCHOCRYPTOSIS 10/08/2009 WHITE DDS, CARMEN D 110.1 ONYCHOMYCOSIS 10/08/2009 WHITE DDS, CARMEN D 703.8 ONYCHOCRYPTOSIS 10/08/2009 CALL DO, MARC K 110.1 ONYCHOMYCOSIS 10/08/2009 CALL DO, MARC K 703.8 ONYCHOCRYPTOSIS 10/08/2009 CALL DO, MARC K 110.1 ONYCHOMYCOSIS 10/08/2009 CALL DO, MARC K 703.8 ONYCHOCRYPTOSIS 10/08/2009 ISAAC FUNES, NORA R 110.1 ONYCHOMYCOSIS 10/08/2009 ISAAC BLIND LACER, NORA R 703.8 ONYCHOCRYPTOSIS 10/08/2009 CALL DO, MARC K 110.1 ONYCHOMYCOSIS 10/08/2009 CALL DO, MARC K 703.8 ONYCHOCRYPTOSIS 10/08/2009 CALL DO, MARC K 110.1 ONYCHOMYCOSIS 10/08/2009 CALL DO, MARC K 703.8 ONYCHOCRYPTOSIS 10/08/2009 FLAKO DPM, RON 110.1 ONYCHOMYCOSIS 10/08/2009 FLAKO DPM, RON 703.8 ONYCHOCRYPTOSIS 10/08/2009 ISAAC BLIND LACER, NORA R 110.1 ONYCHOMYCOSIS 10/08/2009 ISAAC BLIND LACER, NORA R 703.8 ONYCHOCRYPTOSIS 10/08/2009 ISAAC BLIND LACER, NORA R 110.1 ONYCHOMYCOSIS 10/08/2009 ISAAC BLIND LACER, NORA R 703.8 ONYCHOCRYPTOSIS 10/08/2009 ISAAC BLIND LACER, NORA R 110.1 ONYCHOMYCOSIS 10/08/2009 ISAAC BLIND LACER, NORA R 703.8 ONYCHOCRYPTOSIS 10/08/2009 AALIYAH BLIND LACER, MELVIN A 110.1 ONYCHOMYCOSIS 10/08/2009 AALIYAH BLIND LACER, MELVIN A 703.8 ONYCHOCRYPTOSIS 10/08/2009 CALL DO, MARC K 110.1 ONYCHOMYCOSIS 10/08/2009 CALL DO, MARC K 703.8 ONYCHOCRYPTOSIS 10/08/2009 ISAAC BLIND LACER, NORA R 110.1 ONYCHOMYCOSIS 10/08/2009 ISAAC BLIND LACER, NORA R 703.8 ONYCHOCRYPTOSIS 10/08/2009 FLAKO DPM, RON 110.1 ONYCHOMYCOSIS 10/08/2009 FLAKO DPM, RON 703.8 ONYCHOCRYPTOSIS 10/08/2009 FLAKO DPM, RON 110.1 ONYCHOMYCOSIS 10/08/2009 FLAKO DPM, RON 703.8 ONYCHOCRYPTOSIS 10/08/2009 LEANDRO GONZALEZ MD 110.1 ONYCHOMYCOSIS 10/08/2009 LEANDRO GONZALEZ MD 703.8 ONYCHOCRYPTOSIS 12/03/2009 Ot 174.9 12/03/2009 Ot V45.71 12/03/2009 Ot V57.21 12/27/2009 Ot 174.9 12/27/2009 Ot 196.3 12/27/2009 Ot 733.90 12/27/2009 Ot 784.2 12/27/2009 Ot V15.3 12/27/2009 Ot V58.69 12/27/2009 Ot V86.0 12/27/2009 Ot V87.41 12/29/2009 CALL DO, MARC K 250.00 DIABETES MELLITUS TYPE 2 12/29/2009 CALL DO, MARC K 250.00 DIABETES MELLITUS TYPE 2 12/29/2009 CALL DO, MARC K 250.00 DIABETES MELLITUS TYPE 2 12/29/2009 CALL DO, MARC K 250.00 DIABETES MELLITUS TYPE 2 12/29/2009 250.00 DIABETES MELLITUS TYPE 2 12/29/2009 CALL DO, MARC K 250.00 DIABETES MELLITUS TYPE 2 12/29/2009 250.00 DIABETES MELLITUS TYPE 2 12/29/2009 250.00 DIABETES MELLITUS TYPE 2 12/29/2009 CALL DO, MARC K 250.00 DIABETES MELLITUS TYPE 2 12/29/2009 250.00 DIABETES MELLITUS TYPE 2 12/29/2009 250.00 DIABETES MELLITUS TYPE 2 12/29/2009 250.00 DIABETES MELLITUS TYPE 2 12/29/2009 VARUN HARRISON APRN 250.00 DIABETES MELLITUS TYPE 2 12/29/2009 250.00 DIABETES MELLITUS TYPE 2 12/29/2009 250.00 DIABETES MELLITUS TYPE 2 12/29/2009 250.00 DIABETES MELLITUS TYPE 2 12/29/2009 250.00 DIABETES MELLITUS TYPE 2 12/29/2009 250.00 DIABETES MELLITUS TYPE 2 12/29/2009 CALL DO, MARC K 250.00 DIABETES MELLITUS TYPE 2 12/29/2009 CALL DO, MARC K 250.00 DIABETES MELLITUS TYPE 2 12/29/2009 CALL DO, MARC K 250.00 DIABETES MELLITUS TYPE 2 12/29/2009 CALL DO, MARC K 250.00 DIABETES MELLITUS TYPE 2 12/29/2009 CALL DO, MARC K 250.00 DIABETES MELLITUS TYPE 2 12/29/2009 CALL DO, MARC K 250.00 DIABETES MELLITUS TYPE 2 12/29/2009 CALL DO, MARC K 250.00 DIABETES MELLITUS TYPE 2 12/29/2009 WHITE DDS, CARMEN D 250.00 DIABETES MELLITUS TYPE 2 12/29/2009 CALL DO, MARC K 250.00 DIABETES MELLITUS TYPE 2 12/29/2009 CALL DO, MARC K 250.00 DIABETES MELLITUS TYPE 2 12/29/2009 WHITE DDS, LIZBETH J 250.00 DIABETES MELLITUS TYPE 2 12/29/2009 WHITE DDS, CARMEN D 250.00 DIABETES MELLITUS TYPE 2 12/29/2009 CALL DO, MARC K 250.00 DIABETES MELLITUS TYPE 2 12/29/2009 CALL DO, MARC K 250.00 DIABETES MELLITUS TYPE 2 12/29/2009 NORA GRAY APRN 250.00 DIABETES MELLITUS TYPE 2 12/29/2009 CALL DO, MARC K 250.00 DIABETES MELLITUS TYPE 2 12/29/2009 CALL DO, MARC K 250.00 DIABETES MELLITUS TYPE 2 12/29/2009 FLAKO DPM, RON 250.00 DIABETES MELLITUS TYPE 2 12/29/2009 ISAAC BLIND LACER, NORA R 250.00 DIABETES MELLITUS TYPE 2 12/29/2009 ISAAC BLIND LACER, NORA R 250.00 DIABETES MELLITUS TYPE 2 12/29/2009 ISAAC BLIND LACER, NORA R 250.00 DIABETES MELLITUS TYPE 2 12/29/2009 AALIYAH BLIND LACER, MELVIN A 250.00 DIABETES MELLITUS TYPE 2 12/29/2009 CALL DO, MARC K 250.00 DIABETES MELLITUS TYPE 2 12/29/2009 ISAAC BLIND LACER, NORA R 250.00 DIABETES MELLITUS TYPE 2 12/29/2009 FLAKO DPM, RON 250.00 DIABETES MELLITUS TYPE 2 12/29/2009 FLAKO DPM, RON 250.00 DIABETES MELLITUS TYPE 2 12/29/2009 CARLOS CHAMPION, LEANDRO 250.00 DIABETES MELLITUS TYPE 2 04/03/2010 Ot 174.9 04/03/2010 Ot 196.3 04/03/2010 Ot 733.90 04/03/2010 Ot 784.2 04/03/2010 Ot V15.3 04/03/2010 Ot V58.69 04/03/2010 Ot V86.0 04/03/2010 Ot V87.41 04/12/2010 Ot 250.00 04/12/2010 Ot 401.9 04/12/2010 Ot 715.36 04/12/2010 Ot V10.3 04/12/2010 Ot V15.88 04/12/2010 Ot V57.1 04/21/2010 CALL DO, MARC K 272.1 ESSENTIAL HYPERTRIGLYCERIDEMIA 04/21/2010 CALL DO, MARC K 272.1 ESSENTIAL HYPERTRIGLYCERIDEMIA 04/21/2010 CALL DO, MARC K 272.1 ESSENTIAL HYPERTRIGLYCERIDEMIA 04/21/2010 CALL DO, MARC K 272.1 ESSENTIAL HYPERTRIGLYCERIDEMIA 04/21/2010 272.1 ESSENTIAL HYPERTRIGLYCERIDEMIA 04/21/2010 CALL DO, MARC K 272.1 ESSENTIAL HYPERTRIGLYCERIDEMIA 04/21/2010 272.1 ESSENTIAL HYPERTRIGLYCERIDEMIA 04/21/2010 272.1 ESSENTIAL HYPERTRIGLYCERIDEMIA 04/21/2010 CALL DO, MARC K 272.1 ESSENTIAL HYPERTRIGLYCERIDEMIA 04/21/2010 272.1 ESSENTIAL HYPERTRIGLYCERIDEMIA 04/21/2010 272.1 ESSENTIAL HYPERTRIGLYCERIDEMIA 04/21/2010 272.1 ESSENTIAL HYPERTRIGLYCERIDEMIA 04/21/2010 VARUN HARRISON APRN 272.1 ESSENTIAL HYPERTRIGLYCERIDEMIA 04/21/2010 272.1 ESSENTIAL HYPERTRIGLYCERIDEMIA 04/21/2010 272.1 ESSENTIAL HYPERTRIGLYCERIDEMIA 04/21/2010 272.1 ESSENTIAL HYPERTRIGLYCERIDEMIA 04/21/2010 272.1 ESSENTIAL HYPERTRIGLYCERIDEMIA 04/21/2010 272.1 ESSENTIAL HYPERTRIGLYCERIDEMIA 04/21/2010 CALL DO, MARC K 272.1 ESSENTIAL HYPERTRIGLYCERIDEMIA 04/21/2010 CALL DO, MARC K 272.1 ESSENTIAL HYPERTRIGLYCERIDEMIA 04/21/2010 CALL DO, MARC K 272.1 ESSENTIAL HYPERTRIGLYCERIDEMIA 04/21/2010 ACLL DO, MARC K 272.1 ESSENTIAL HYPERTRIGLYCERIDEMIA 04/21/2010 CALL DO, MARC K 272.1 ESSENTIAL HYPERTRIGLYCERIDEMIA 04/21/2010 CALL DO, MARC K 272.1 ESSENTIAL HYPERTRIGLYCERIDEMIA 04/21/2010 CALL DO, MARC K 272.1 ESSENTIAL HYPERTRIGLYCERIDEMIA 04/21/2010 WHITE DDS, CARMEN D 272.1 ESSENTIAL HYPERTRIGLYCERIDEMIA 04/21/2010 CALL DO, MARC K 272.1 ESSENTIAL HYPERTRIGLYCERIDEMIA 04/21/2010 CALL DO, MARC K 272.1 ESSENTIAL HYPERTRIGLYCERIDEMIA 04/21/2010 WHITE DDS, LIZBETH J 272.1 ESSENTIAL HYPERTRIGLYCERIDEMIA 04/21/2010 WHITE DDS, CARMEN D 272.1 ESSENTIAL HYPERTRIGLYCERIDEMIA 04/21/2010 CALL DO, MARC K 272.1 ESSENTIAL HYPERTRIGLYCERIDEMIA 04/21/2010 CALL DO, MARC K 272.1 ESSENTIAL HYPERTRIGLYCERIDEMIA 04/21/2010 ISAAC FUNES, NORA R 272.1 ESSENTIAL HYPERTRIGLYCERIDEMIA 04/21/2010 CALL DO, MARC K 272.1 ESSENTIAL HYPERTRIGLYCERIDEMIA 04/21/2010 CALL DO, MARC K 272.1 ESSENTIAL HYPERTRIGLYCERIDEMIA 04/21/2010 FLAKO DPM, RON 272.1 ESSENTIAL HYPERTRIGLYCERIDEMIA 04/21/2010 ISAAC FUNES, NORA R 272.1 ESSENTIAL HYPERTRIGLYCERIDEMIA 04/21/2010 ISAAC FUNES, NORA R 272.1 ESSENTIAL HYPERTRIGLYCERIDEMIA 04/21/2010 ISAAC BLIND LACER, NORA R 272.1 ESSENTIAL HYPERTRIGLYCERIDEMIA 04/21/2010 AALIYAH FUNES MELVIN A 272.1 ESSENTIAL HYPERTRIGLYCERIDEMIA 04/21/2010 CALL DO, MARC K 272.1 ESSENTIAL HYPERTRIGLYCERIDEMIA 04/21/2010 NORA GRAY APRN 272.1 ESSENTIAL HYPERTRIGLYCERIDEMIA 04/21/2010 RON ARRIOLA DPM 272.1 ESSENTIAL HYPERTRIGLYCERIDEMIA 04/21/2010 RON ARRIOLA DPM 272.1 ESSENTIAL HYPERTRIGLYCERIDEMIA 04/21/2010 CARLOS CHAMPION, LEANDRO 272.1 ESSENTIAL HYPERTRIGLYCERIDEMIA 07/04/2010 Ot 174.9 MALIGN NEOPL BREAST NOS 07/04/2010 Ot 196.3 MAL CRISTHIAN LYMPH-AXILLA/ARM 07/04/2010 Ot 733.90 BONE CARTILAGE DIS NOS 07/04/2010 Ot 784.2 SWELLING IN HEAD NECK 07/04/2010 Ot V15.3 HX OF IRRADIATION 07/04/2010 Ot V58.69 OTH MED,LT,CURRENT USE 07/04/2010 Ot V58.81 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 07/04/2010 Ot V86.0 ESTROGEN RECEPTOR POSITIVE STATUS [ER+] 07/04/2010 Ot 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 08/16/2010 CALL DO, MARC K 458.0 ORTHOSTATIC HYPOTENSION IDIOPATHIC 08/16/2010 CALL DO, MARC K 785.1 palpitations 08/16/2010 CLAL DO, MARC K 458.0 ORTHOSTATIC HYPOTENSION IDIOPATHIC 08/16/2010 CALL DO, MARC K 785.1 palpitations 08/16/2010 CALL DO, MARC K 458.0 ORTHOSTATIC HYPOTENSION IDIOPATHIC 08/16/2010 CALL DO, MARC K 785.1 palpitations 08/16/2010 CALL DO, MARC K 458.0 ORTHOSTATIC HYPOTENSION IDIOPATHIC 08/16/2010 CALL DO, MARC K 785.1 palpitations 08/16/2010 458.0 ORTHOSTATIC HYPOTENSION IDIOPATHIC 08/16/2010 785.1 palpitations 08/16/2010 CALL DO, MARC K 458.0 ORTHOSTATIC HYPOTENSION IDIOPATHIC 08/16/2010 CALL DO, MARC K 785.1 palpitations 08/16/2010 458.0 ORTHOSTATIC HYPOTENSION IDIOPATHIC 08/16/2010 785.1 palpitations 08/16/2010 458.0 ORTHOSTATIC HYPOTENSION IDIOPATHIC 08/16/2010 785.1 palpitations 08/16/2010 CALL DO, MARC K 458.0 ORTHOSTATIC HYPOTENSION IDIOPATHIC 08/16/2010 CALL DO, MARC K 785.1 palpitations 08/16/2010 458.0 ORTHOSTATIC HYPOTENSION IDIOPATHIC 08/16/2010 785.1 palpitations 08/16/2010 458.0 ORTHOSTATIC HYPOTENSION IDIOPATHIC 08/16/2010 785.1 palpitations 08/16/2010 458.0 ORTHOSTATIC HYPOTENSION IDIOPATHIC 08/16/2010 785.1 palpitations 08/16/2010 VARUN HARRISON APRN S 458.0 ORTHOSTATIC HYPOTENSION IDIOPATHIC 08/16/2010 VARUN HARRISON APRN S 785.1 palpitations 08/16/2010 458.0 ORTHOSTATIC HYPOTENSION IDIOPATHIC 08/16/2010 785.1 palpitations 08/16/2010 458.0 ORTHOSTATIC HYPOTENSION IDIOPATHIC 08/16/2010 785.1 palpitations 08/16/2010 458.0 ORTHOSTATIC HYPOTENSION IDIOPATHIC 08/16/2010 785.1 palpitations 08/16/2010 458.0 ORTHOSTATIC HYPOTENSION IDIOPATHIC 08/16/2010 785.1 palpitations 08/16/2010 458.0 ORTHOSTATIC HYPOTENSION IDIOPATHIC 08/16/2010 785.1 palpitations 08/16/2010 CALL DO, MARC K 458.0 ORTHOSTATIC HYPOTENSION IDIOPATHIC 08/16/2010 CALL DO, MARC K 785.1 palpitations 08/16/2010 CALL DO, MARC K 458.0 ORTHOSTATIC HYPOTENSION IDIOPATHIC 08/16/2010 CALL DO, MARC K 785.1 palpitations 08/16/2010 CALL DO, MARC K 458.0 ORTHOSTATIC HYPOTENSION IDIOPATHIC 08/16/2010 CALL DO, MARC K 785.1 palpitations 08/16/2010 CALL DO, MARC K 458.0 ORTHOSTATIC HYPOTENSION IDIOPATHIC 08/16/2010 CALL DO, MARC K 785.1 palpitations 08/16/2010 CALL DO, MARC K 458.0 ORTHOSTATIC HYPOTENSION IDIOPATHIC 08/16/2010 CALL DO, MARC K 785.1 palpitations 08/16/2010 CALL DO, MARC K 458.0 ORTHOSTATIC HYPOTENSION IDIOPATHIC 08/16/2010 CALL DO, MARC K 785.1 palpitations 08/16/2010 CALL DO, MARC K 458.0 ORTHOSTATIC HYPOTENSION IDIOPATHIC 08/16/2010 CALL DO, MARC K 785.1 palpitations 08/16/2010 WHITE DDS, CARMEN D 458.0 ORTHOSTATIC HYPOTENSION IDIOPATHIC 08/16/2010 WHITE DDS, CARMEN D 785.1 palpitations 08/16/2010 CALL DO, MARC K 458.0 ORTHOSTATIC HYPOTENSION IDIOPATHIC 08/16/2010 CALL DO, MARC K 785.1 palpitations 08/16/2010 CALL DO, MARC K 458.0 ORTHOSTATIC HYPOTENSION IDIOPATHIC 08/16/2010 CALL DO, MARC K 785.1 palpitations 08/16/2010 WHITE DDS, LIZBETH J 458.0 ORTHOSTATIC HYPOTENSION IDIOPATHIC 08/16/2010 WHITE DDS, LIZBETH J 785.1 palpitations 08/16/2010 WHITE DDS, CARMEN D 458.0 ORTHOSTATIC HYPOTENSION IDIOPATHIC 08/16/2010 WHITE DDS, CARMEN D 785.1 palpitations 08/16/2010 CALL DO, MARC K 458.0 ORTHOSTATIC HYPOTENSION IDIOPATHIC 08/16/2010 CALL DO, MARC K 785.1 palpitations 08/16/2010 CALL DO, MARC K 458.0 ORTHOSTATIC HYPOTENSION IDIOPATHIC 08/16/2010 CALL DO, MARC K 785.1 palpitations 08/16/2010 ISAAC GARYN, NORA R 458.0 ORTHOSTATIC HYPOTENSION IDIOPATHIC 08/16/2010 ISAAC FUNES, NORA R 785.1 palpitations 08/16/2010 CALL DO, MARC K 458.0 ORTHOSTATIC HYPOTENSION IDIOPATHIC 08/16/2010 CALL DO, MARC K 785.1 palpitations 08/16/2010 CALL DO, MARC K 458.0 ORTHOSTATIC HYPOTENSION IDIOPATHIC 08/16/2010 ACLL DO, MARC K 785.1 palpitations 08/16/2010 FLAKO DPM, RON 458.0 ORTHOSTATIC HYPOTENSION IDIOPATHIC 08/16/2010 FLAKO DPM, RON 785.1 palpitations 08/16/2010 ISAAC BLIND LACER, NORA R 458.0 ORTHOSTATIC HYPOTENSION IDIOPATHIC 08/16/2010 ISAAC BLIND LACER, NORA R 785.1 palpitations 08/16/2010 ISAAC BLIND LACER, NORA R 458.0 ORTHOSTATIC HYPOTENSION IDIOPATHIC 08/16/2010 ISAAC BLIND LACER, NORA R 785.1 palpitations 08/16/2010 ISAAC BLIND LACER, NORA R 458.0 ORTHOSTATIC HYPOTENSION IDIOPATHIC 08/16/2010 ISAAC BLIND LACER, NORA R 785.1 palpitations 08/16/2010 AALIYAH FUNES MELVIN A 458.0 ORTHOSTATIC HYPOTENSION IDIOPATHIC 08/16/2010 AALIYAH FUNES MELVIN A 785.1 palpitations 08/16/2010 CALL DO, MARC K 458.0 ORTHOSTATIC HYPOTENSION IDIOPATHIC 08/16/2010 CALL DO, MARC K 785.1 palpitations 08/16/2010 ISAAC BLIND LACER, NORA R 458.0 ORTHOSTATIC HYPOTENSION IDIOPATHIC 08/16/2010 ISAAC BLIND LACER, NORA R 785.1 palpitations 08/16/2010 FLAKO DPM, RON 458.0 ORTHOSTATIC HYPOTENSION IDIOPATHIC 08/16/2010 FLAKO DPM, RON 785.1 palpitations 08/16/2010 FLAKO DPM, RON 458.0 ORTHOSTATIC HYPOTENSION IDIOPATHIC 08/16/2010 FLAKO DPM, RON 785.1 palpitations 08/16/2010 LEANDRO GONZALEZ MD 458.0 ORTHOSTATIC HYPOTENSION IDIOPATHIC 08/16/2010 LEANDRO GONZALEZ MD 785.1 palpitations 08/31/2010 Ot 244.0 POSTSURGICAL HYPOTHYROID 08/31/2010 Ot 250.60 DIAB W NEURO MANIFEST, TYPE II OR UNSPEC 08/31/2010 Ot 272.4 HYPERLIPIDEMIA NEC/NOS 08/31/2010 Ot 278.00 OBESITY, NOS 08/31/2010 Ot 357.2 NEUROPATHY IN DIABETES 08/31/2010 Ot 397.0 TRICUSPID VALVE DISEASE 08/31/2010 Ot 401.9 HYPERTENSION NOS 08/31/2010 Ot 424.0 MITRAL VALVE DISORDER 08/31/2010 Ot 493.90 ASTHMA, UNSPECIFIED 08/31/2010 Ot 530.81 ESOPHAGEAL REFLUX 08/31/2010 Ot 715.90 OSTEOARTHROS NOS-UNSPEC 08/31/2010 Ot 786.59 CHEST PAIN NEC 08/31/2010 Ot V15.82 HISTORY OF TOBACCO USE 08/31/2010 Ot V58.69 OTH MED,LT,CURRENT USE 08/31/2010 Ot V85.41 BODY MASS INDEX 40.0-44.9, ADULT 09/02/2010 CALL DO, MARC K 356.9 NEUROPATHY 09/02/2010 CALL DO, MARC K 356.9 NEUROPATHY 09/02/2010 CALL DO, MARC K 356.9 NEUROPATHY 09/02/2010 CALL DO, MARC K 356.9 NEUROPATHY 09/02/2010 356.9 NEUROPATHY 09/02/2010 CALL DO, MARC K 356.9 NEUROPATHY 09/02/2010 356.9 NEUROPATHY 09/02/2010 356.9 NEUROPATHY 09/02/2010 CALL DO, MARC K 356.9 NEUROPATHY 09/02/2010 356.9 NEUROPATHY 09/02/2010 356.9 NEUROPATHY 09/02/2010 356.9 NEUROPATHY 09/02/2010 VARUN HARRISON APRN 356.9 NEUROPATHY 09/02/2010 356.9 NEUROPATHY 09/02/2010 356.9 NEUROPATHY 09/02/2010 356.9 NEUROPATHY 09/02/2010 356.9 NEUROPATHY 09/02/2010 356.9 NEUROPATHY 09/02/2010 CALL DO, MARC K 356.9 NEUROPATHY 09/02/2010 CALL DO, MARC K 356.9 NEUROPATHY 09/02/2010 CALL DO, MARC K 356.9 NEUROPATHY 09/02/2010 CALL DO, MARC K 356.9 NEUROPATHY 09/02/2010 CALL DO, MARC K 356.9 NEUROPATHY 09/02/2010 CALL DO, MARC K 356.9 NEUROPATHY 09/02/2010 CALL DO, MARC K 356.9 NEUROPATHY 09/02/2010 WHITE DDS, CARMEN D 356.9 NEUROPATHY 09/02/2010 CALL DO, MARC K 356.9 NEUROPATHY 09/02/2010 CALL DO, MARC K 356.9 NEUROPATHY 09/02/2010 WHITE DDS, LIZBETH J 356.9 NEUROPATHY 09/02/2010 WHITE DDS, CARMEN D 356.9 NEUROPATHY 09/02/2010 CALL DO, MARC K 356.9 NEUROPATHY 09/02/2010 CALL DO, MARC K 356.9 NEUROPATHY 09/02/2010 ISAAC BLIND LACER, NORA R 356.9 NEUROPATHY 09/02/2010 CALL DO, MARC K 356.9 NEUROPATHY 09/02/2010 CALL DO, MARC K 356.9 NEUROPATHY 09/02/2010 FLAKO DPM, RON 356.9 NEUROPATHY 09/02/2010 ISAAC BLIND LACER, NORA R 356.9 NEUROPATHY 09/02/2010 ISAAC BLIND LACER, NORA R 356.9 NEUROPATHY 09/02/2010 ISAAC BLIND LACER, NORA R 356.9 NEUROPATHY 09/02/2010 AALIYAH FUNES, MELVIN A 356.9 NEUROPATHY 09/02/2010 CALL DO, MARC K 356.9 NEUROPATHY 09/02/2010 ISAAC BLIND LACER, NORA R 356.9 NEUROPATHY 09/02/2010 FLAKO DPM, RON 356.9 NEUROPATHY 09/02/2010 FLAKO DPM, RON 356.9 NEUROPATHY 09/02/2010 CARLOS CHAMPION, LEANDRO 356.9 NEUROPATHY 11/01/2010 Ot 174.9 MALIGN NEOPL BREAST NOS 11/01/2010 Ot 196.3 MAL CRISTHIAN LYMPH-AXILLA/ARM 11/01/2010 Ot 457.1 OTHER LYMPHEDEMA 11/01/2010 Ot 733.90 BONE CARTILAGE DIS NOS 11/01/2010 Ot 780.4 DIZZINESS AND GIDDINESS 11/01/2010 Ot 784.2 SWELLING IN HEAD NECK 11/01/2010 Ot V15.3 HX OF IRRADIATION 11/01/2010 Ot V15.88 HISTORY OF FALL 11/01/2010 Ot V58.69 OTH MED,LT,CURRENT USE 11/01/2010 Ot V86.0 ESTROGEN RECEPTOR POSITIVE STATUS [ER+] 11/01/2010 Ot 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 03/08/2011 Ot 174.9 MALIGN NEOPL BREAST NOS 03/08/2011 Ot 196.3 MAL CRISTHIAN LYMPH-AXILLA/ARM 03/08/2011 Ot V58.81 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 05/18/2011 Ot 038.19 STAPHYLOCOCCAL SEPTICEMIA, NEC 05/18/2011 Ot 244.9 HYPOTHYROIDISM NOS 05/18/2011 Ot 250.00 DIAB SUGAR WO COMPL, TYPE II OR UNSPEC TY 05/18/2011 Ot 272.4 HYPERLIPIDEMIA NEC/NOS 05/18/2011 Ot 278.00 OBESITY, NOS 05/18/2011 Ot 285.9 ANEMIA NOS 05/18/2011 Ot 287.5 THROMBOCYTOPENIA NOS 05/18/2011 Ot 401.9 HYPERTENSION NOS 05/18/2011 Ot 611.0 INFLAM DISEASE OF BREAST 05/18/2011 Ot 682.3 CELLULITIS OF ARM 05/18/2011 Ot 995.91 SEPSIS 05/18/2011 Ot V10.3 HX OF BREAST MALIGNANCY 05/18/2011 Ot V15.3 HX OF IRRADIATION 05/18/2011 Ot V45.71 ACQUIRED ABSENCE OF BREAST AND NIPPLE 05/18/2011 Ot V85.41 BODY MASS INDEX 40.0-44.9, ADULT 05/18/2011 Ot 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 06/06/2011 Ot 174.9 MALIGN NEOPL BREAST NOS 06/06/2011 Ot 196.3 MAL CRISTHIAN LYMPH-AXILLA/ARM 06/06/2011 Ot V58.81 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 06/15/2011 CALL DO, MARC K 682.9 Cellulitis 06/15/2011 CALL DO, MARC K 788.30 urinary loss of control 06/15/2011 CALL DO, MARC K 682.9 Cellulitis 06/15/2011 CALL DO, MARC K 788.30 urinary loss of control 06/15/2011 CALL DO, MARC K 682.9 Cellulitis 06/15/2011 CALL DO, MARC K 788.30 urinary loss of control 06/15/2011 CALL DO, MARC K 682.9 Cellulitis 06/15/2011 CALL DO, MARC K 788.30 urinary loss of control 06/15/2011 682.9 Cellulitis 06/15/2011 788.30 urinary loss of control 06/15/2011 CALL DO, MARC K 682.9 Cellulitis 06/15/2011 CALL DO, MARC K 788.30 urinary loss of control 06/15/2011 682.9 Cellulitis 06/15/2011 788.30 urinary loss of control 06/15/2011 682.9 Cellulitis 06/15/2011 788.30 urinary loss of control 06/15/2011 CALL DO, MARC K 682.9 Cellulitis 06/15/2011 CALL DO, MARC K 788.30 urinary loss of control 06/15/2011 682.9 Cellulitis 06/15/2011 788.30 urinary loss of control 06/15/2011 682.9 Cellulitis 06/15/2011 788.30 urinary loss of control 06/15/2011 682.9 Cellulitis 06/15/2011 788.30 urinary loss of control 06/15/2011 VARUN HARRISON APRN S 682.9 Cellulitis 06/15/2011 VARUN HARRISON APRN 788.30 urinary loss of control 06/15/2011 682.9 Cellulitis 06/15/2011 788.30 urinary loss of control 06/15/2011 682.9 Cellulitis 06/15/2011 788.30 urinary loss of control 06/15/2011 682.9 Cellulitis 06/15/2011 788.30 urinary loss of control 06/15/2011 682.9 Cellulitis 06/15/2011 788.30 urinary loss of control 06/15/2011 682.9 Cellulitis 06/15/2011 788.30 urinary loss of control 06/15/2011 CALL DO, MARC K 682.9 Cellulitis 06/15/2011 CALL DO, MARC K 788.30 urinary loss of control 06/15/2011 CALL DO, MARC K 682.9 Cellulitis 06/15/2011 CALL DO, MARC K 788.30 urinary loss of control 06/15/2011 CALL DO, MARC K 682.9 Cellulitis 06/15/2011 CALL DO, MARC K 788.30 urinary loss of control 06/15/2011 CALL DO, MARC K 682.9 Cellulitis 06/15/2011 CALL DO, MARC K 788.30 urinary loss of control 06/15/2011 CALL DO, MARC K 682.9 Cellulitis 06/15/2011 CALL DO, MARC K 788.30 urinary loss of control 06/15/2011 CALL DO, MARC K 682.9 Cellulitis 06/15/2011 CALL DO, MARC K 788.30 urinary loss of control 06/15/2011 CALL DO, MARC K 682.9 Cellulitis 06/15/2011 CALL DO, MARC K 788.30 urinary loss of control 06/15/2011 WHITE DDS, CARMEN D 682.9 Cellulitis 06/15/2011 WHITE DDS, CARMEN D 788.30 urinary loss of control 06/15/2011 CALL DO, MARC K 682.9 Cellulitis 06/15/2011 CALL DO, MARC K 788.30 urinary loss of control 06/15/2011 CALL DO, MARC K 682.9 Cellulitis 06/15/2011 CALL DO, MARC K 788.30 urinary loss of control 06/15/2011 WHITE DDS, LIZBETH J 682.9 Cellulitis 06/15/2011 WHITE DDS, LIZBETH J 788.30 urinary loss of control 06/15/2011 WHITE DDS, CARMEN D 682.9 Cellulitis 06/15/2011 WHITE DDS, CARMEN D 788.30 urinary loss of control 06/15/2011 CALL DO, MARC K 682.9 Cellulitis 06/15/2011 CALL DO, MARC K 788.30 urinary loss of control 06/15/2011 CALL DO, MARC K 682.9 Cellulitis 06/15/2011 CALL DO, MARC K 788.30 urinary loss of control 06/15/2011 ISAAC BLIND LACER, NORA R 682.9 Cellulitis 06/15/2011 ISAAC BLIND LACER, NORA R 788.30 urinary loss of control 06/15/2011 CALL DO, MARC K 682.9 Cellulitis 06/15/2011 CALL DO, MARC K 788.30 urinary loss of control 06/15/2011 CALL DO, MARC K 682.9 Cellulitis 06/15/2011 CALL DO, MARC K 788.30 urinary loss of control 06/15/2011 FLAKO DPM, RON 682.9 Cellulitis 06/15/2011 FLAKO DPM, RON 788.30 urinary loss of control 06/15/2011 ISAAC BLIND LACER, NORA R 682.9 Cellulitis 06/15/2011 ISAAC BLIND LACER, NORA R 788.30 urinary loss of control 06/15/2011 ISAAC BLIND LACER, NORA R 682.9 Cellulitis 06/15/2011 ISAAC BLIND LACER, NORA R 788.30 urinary loss of control 06/15/2011 ISAAC BLIND LACER, NORA R 682.9 Cellulitis 06/15/2011 ISAAC BLIND LACER, NORA R 788.30 urinary loss of control 06/15/2011 AALIYAHNils FUNES MELVIN A 682.9 Cellulitis 06/15/2011 AALIYAH FUNES MELVIN A 788.30 urinary loss of control 06/15/2011 CALL DO, MARC K 682.9 Cellulitis 06/15/2011 CALL DO, MARC K 788.30 urinary loss of control 06/15/2011 ISAAC BLIND LACER, NORA R 682.9 Cellulitis 06/15/2011 ISAAC BLIND LACER, NORA R 788.30 urinary loss of control 06/15/2011 FLAKO DPM, RON 682.9 Cellulitis 06/15/2011 FLAKO DPM, RON 788.30 urinary loss of control 06/15/2011 FLAKO DPM, RON 682.9 Cellulitis 06/15/2011 FLAKO DPM, RON 788.30 urinary loss of control 06/15/2011 LEANDRO GONZALEZ MD 682.9 Cellulitis 06/15/2011 CARLOS CHAMPION, LEANDRO 788.30 urinary loss of control 07/22/2011 Ot 813.44 FX LOW RADIUS W ULNA-CL 07/22/2011 Ot 959.3 ELB/FOREARM/WRST INJ NOS 07/22/2011 Ot E000.8 OTHER EXTERNAL CAUSE STATUS 07/22/2011 Ot E849.6 ACCIDENT IN PUBLIC BLDG 07/22/2011 Ot E885.9 FALL FROM SLIPPING, TRIPPING, OR STUMBLI 08/10/2011 CALL DO, MARC K 780.60 Fever Unspecified 08/10/2011 CALL DO, MARC K 780.60 Fever Unspecified 08/10/2011 CALL DO, MARC K 780.60 Fever Unspecified 08/10/2011 CALL DO, MARC K 780.60 Fever Unspecified 08/10/2011 780.60 Fever Unspecified 08/10/2011 CALL DO, MARC K 780.60 Fever Unspecified 08/10/2011 780.60 Fever Unspecified 08/10/2011 780.60 Fever Unspecified 08/10/2011 CALL DO, MARC K 780.60 Fever Unspecified 08/10/2011 780.60 Fever Unspecified 08/10/2011 780.60 Fever Unspecified 08/10/2011 780.60 Fever Unspecified 08/10/2011 VARUN HARRISON APRN 780.60 Fever Unspecified 08/10/2011 780.60 Fever Unspecified 08/10/2011 780.60 Fever Unspecified 08/10/2011 780.60 Fever Unspecified 08/10/2011 780.60 Fever Unspecified 08/10/2011 780.60 Fever Unspecified 08/10/2011 CALL DO, MARC K 780.60 Fever Unspecified 08/10/2011 CALL DO, MARC K 780.60 Fever Unspecified 08/10/2011 CALL DO, MARC K 780.60 Fever Unspecified 08/10/2011 CALL DO, MARC K 780.60 Fever Unspecified 08/10/2011 CALL DO, MARC K 780.60 Fever Unspecified 08/10/2011 CALL DO, MARC K 780.60 Fever Unspecified 08/10/2011 CALL DO, MARC K 780.60 Fever Unspecified 08/10/2011 CARMEN PEDERSON DDS 780.60 Fever Unspecified 08/10/2011 CALL DO, MARC K 780.60 Fever Unspecified 08/10/2011 CALL DO, MARC K 780.60 Fever Unspecified 08/10/2011 WHITE DDS, LIZBETH Devries 780.60 Fever Unspecified 08/10/2011 WHITE DDS, CARMEN Camejo 780.60 Fever Unspecified 08/10/2011 CALL DO, MARC K 780.60 Fever Unspecified 08/10/2011 CALL DO, MARC K 780.60 Fever Unspecified 08/10/2011 ISAAC BLIND LACER, NORA R 780.60 Fever Unspecified 08/10/2011 CALL DO, MARC K 780.60 Fever Unspecified 08/10/2011 CALL DO, MARC K 780.60 Fever Unspecified 08/10/2011 FLAKO DPM, RON 780.60 Fever Unspecified 08/10/2011 ISAAC BLIND LACER, NORA R 780.60 Fever Unspecified 08/10/2011 ISAAC BLIND LACER, NORA R 780.60 Fever Unspecified 08/10/2011 ISAAC BLIND LACER, NORA R 780.60 Fever Unspecified 08/10/2011 AALIYAH FUNES, MELVIN Choudhury 780.60 Fever Unspecified 08/10/2011 CALL DO, MARC K 780.60 Fever Unspecified 08/10/2011 ISAAC BLIND LACER, NORA R 780.60 Fever Unspecified 08/10/2011 FLAKO DPM, RON 780.60 Fever Unspecified 08/10/2011 FLAKO DPM, RON 780.60 Fever Unspecified 08/10/2011 LEANDRO GONZALEZ MD 780.60 Fever Unspecified 09/06/2011 Ot 174.9 MALIGN NEOPL BREAST NOS 09/06/2011 Ot V58.81 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 10/05/2011 CALL DO, MARC K 715.96 OSTEOARTHROSIS UNSPECIFIED WHETHER GENERALIZED OR LOCALIZED INVOLVING LOWER LEG 10/05/2011 CALL DO, MARC K 715.96 OSTEOARTHROSIS UNSPECIFIED WHETHER GENERALIZED OR LOCALIZED INVOLVING LOWER LEG 10/05/2011 CALL DO, MARC K 715.96 OSTEOARTHROSIS UNSPECIFIED WHETHER GENERALIZED OR LOCALIZED INVOLVING LOWER LEG 10/05/2011 CALL DO, MARC K 715.96 OSTEOARTHROSIS UNSPECIFIED WHETHER GENERALIZED OR LOCALIZED INVOLVING LOWER LEG 10/05/2011 715.96 OSTEOARTHROSIS UNSPECIFIED WHETHER GENERALIZED OR LOCALIZED INVOLVING LOWER LEG 10/05/2011 CALL DO, MARC K 715.96 OSTEOARTHROSIS UNSPECIFIED WHETHER GENERALIZED OR LOCALIZED INVOLVING LOWER LEG 10/05/2011 715.96 OSTEOARTHROSIS UNSPECIFIED WHETHER GENERALIZED OR LOCALIZED INVOLVING LOWER LEG 10/05/2011 715.96 OSTEOARTHROSIS UNSPECIFIED WHETHER GENERALIZED OR LOCALIZED INVOLVING LOWER LEG 10/05/2011 CALL DO, MARC K 715.96 OSTEOARTHROSIS UNSPECIFIED WHETHER GENERALIZED OR LOCALIZED INVOLVING LOWER LEG 10/05/2011 715.96 OSTEOARTHROSIS UNSPECIFIED WHETHER GENERALIZED OR LOCALIZED INVOLVING LOWER LEG 10/05/2011 715.96 OSTEOARTHROSIS UNSPECIFIED WHETHER GENERALIZED OR LOCALIZED INVOLVING LOWER LEG 10/05/2011 715.96 OSTEOARTHROSIS UNSPECIFIED WHETHER GENERALIZED OR LOCALIZED INVOLVING LOWER LEG 10/05/2011 VARUN HARRISON APRN 715.96 OSTEOARTHROSIS UNSPECIFIED WHETHER GENERALIZED OR LOCALIZED INVOLVING LOWER LEG 10/05/2011 715.96 OSTEOARTHROSIS UNSPECIFIED WHETHER GENERALIZED OR LOCALIZED INVOLVING LOWER LEG 10/05/2011 715.96 OSTEOARTHROSIS UNSPECIFIED WHETHER GENERALIZED OR LOCALIZED INVOLVING LOWER LEG 10/05/2011 715.96 OSTEOARTHROSIS UNSPECIFIED WHETHER GENERALIZED OR LOCALIZED INVOLVING LOWER LEG 10/05/2011 715.96 OSTEOARTHROSIS UNSPECIFIED WHETHER GENERALIZED OR LOCALIZED INVOLVING LOWER LEG 10/05/2011 715.96 OSTEOARTHROSIS UNSPECIFIED WHETHER GENERALIZED OR LOCALIZED INVOLVING LOWER LEG 10/05/2011 CALL DO, MARC K 715.96 OSTEOARTHROSIS UNSPECIFIED WHETHER GENERALIZED OR LOCALIZED INVOLVING LOWER LEG 10/05/2011 CALL DO, MARC K 715.96 OSTEOARTHROSIS UNSPECIFIED WHETHER GENERALIZED OR LOCALIZED INVOLVING LOWER LEG 10/05/2011 CALL DO, MARC K 715.96 OSTEOARTHROSIS UNSPECIFIED WHETHER GENERALIZED OR LOCALIZED INVOLVING LOWER LEG 10/05/2011 CALL DO, MARC K 715.96 OSTEOARTHROSIS UNSPECIFIED WHETHER GENERALIZED OR LOCALIZED INVOLVING LOWER LEG 10/05/2011 CALL DO, MARC K 715.96 OSTEOARTHROSIS UNSPECIFIED WHETHER GENERALIZED OR LOCALIZED INVOLVING LOWER LEG 10/05/2011 CALL DO, MARC K 715.96 OSTEOARTHROSIS UNSPECIFIED WHETHER GENERALIZED OR LOCALIZED INVOLVING LOWER LEG 10/05/2011 CALL DO, MARC K 715.96 OSTEOARTHROSIS UNSPECIFIED WHETHER GENERALIZED OR LOCALIZED INVOLVING LOWER LEG 10/05/2011 CARMEN PEDERSON DDS 715.96 OSTEOARTHROSIS UNSPECIFIED WHETHER GENERALIZED OR LOCALIZED INVOLVING LOWER LEG 10/05/2011 CALL DO, MARC K 715.96 OSTEOARTHROSIS UNSPECIFIED WHETHER GENERALIZED OR LOCALIZED INVOLVING LOWER LEG 10/05/2011 CALL DO, MARC K 715.96 OSTEOARTHROSIS UNSPECIFIED WHETHER GENERALIZED OR LOCALIZED INVOLVING LOWER LEG 10/05/2011 BG DDS, LIZBETH Devries 715.96 OSTEOARTHROSIS UNSPECIFIED WHETHER GENERALIZED OR LOCALIZED INVOLVING LOWER LEG 10/05/2011 WHITE DDS, CARMEN Camejo 715.96 OSTEOARTHROSIS UNSPECIFIED WHETHER GENERALIZED OR LOCALIZED INVOLVING LOWER LEG 10/05/2011 CALL DO, MARC K 715.96 OSTEOARTHROSIS UNSPECIFIED WHETHER GENERALIZED OR LOCALIZED INVOLVING LOWER LEG 10/05/2011 CALL DO, MARC K 715.96 OSTEOARTHROSIS UNSPECIFIED WHETHER GENERALIZED OR LOCALIZED INVOLVING LOWER LEG 10/05/2011 ISAAC FUNES NORA R 715.96 OSTEOARTHROSIS UNSPECIFIED WHETHER GENERALIZED OR LOCALIZED INVOLVING LOWER LEG 10/05/2011 CALL DO, MARC K 715.96 OSTEOARTHROSIS UNSPECIFIED WHETHER GENERALIZED OR LOCALIZED INVOLVING LOWER LEG 10/05/2011 CALL DO, MARC K 715.96 OSTEOARTHROSIS UNSPECIFIED WHETHER GENERALIZED OR LOCALIZED INVOLVING LOWER LEG 10/05/2011 FLAKO DPM, RON 715.96 OSTEOARTHROSIS UNSPECIFIED WHETHER GENERALIZED OR LOCALIZED INVOLVING LOWER LEG 10/05/2011 ISAAC FUNES, NORA R 715.96 OSTEOARTHROSIS UNSPECIFIED WHETHER GENERALIZED OR LOCALIZED INVOLVING LOWER LEG 10/05/2011 ISAAC FUNES, NORA R 715.96 OSTEOARTHROSIS UNSPECIFIED WHETHER GENERALIZED OR LOCALIZED INVOLVING LOWER LEG 10/05/2011 ISAAC FUNES, NORA R 715.96 OSTEOARTHROSIS UNSPECIFIED WHETHER GENERALIZED OR LOCALIZED INVOLVING LOWER LEG 10/05/2011 MELVIN FISCHER APRN 715.96 OSTEOARTHROSIS UNSPECIFIED WHETHER GENERALIZED OR LOCALIZED INVOLVING LOWER LEG 10/05/2011 CALL DO, MARC K 715.96 OSTEOARTHROSIS UNSPECIFIED WHETHER GENERALIZED OR LOCALIZED INVOLVING LOWER LEG 10/05/2011 ISAAC FUNES, NORA R 715.96 OSTEOARTHROSIS UNSPECIFIED WHETHER GENERALIZED OR LOCALIZED INVOLVING LOWER LEG 10/05/2011 FLAKO DPM, RON 715.96 OSTEOARTHROSIS UNSPECIFIED WHETHER GENERALIZED OR LOCALIZED INVOLVING LOWER LEG 10/05/2011 FLAKO DPM, RON 715.96 OSTEOARTHROSIS UNSPECIFIED WHETHER GENERALIZED OR LOCALIZED INVOLVING LOWER LEG 10/05/2011 LEANDRO GONZALEZ MD 715.96 OSTEOARTHROSIS UNSPECIFIED WHETHER GENERALIZED OR LOCALIZED INVOLVING LOWER LEG 10/13/2011 CALL DO, MARC K 719.07 Edema Foot 10/13/2011 CALL DO, MARC K 719.07 Edema Foot 10/13/2011 CALL DO, MARC K 719.07 Edema Foot 10/13/2011 CALL DO, MARC K 719.07 Edema Foot 10/13/2011 719.07 Edema Foot 10/13/2011 CALL DO, MARC K 719.07 Edema Foot 10/13/2011 719.07 Edema Foot 10/13/2011 719.07 Edema Foot 10/13/2011 CALL DO, MARC K 719.07 Edema Foot 10/13/2011 719.07 Edema Foot 10/13/2011 719.07 Edema Foot 10/13/2011 719.07 Edema Foot 10/13/2011 AVRUN HARRISON APRN 719.07 Edema Foot 10/13/2011 719.07 Edema Foot 10/13/2011 719.07 Edema Foot 10/13/2011 719.07 Edema Foot 10/13/2011 719.07 Edema Foot 10/13/2011 719.07 Edema Foot 10/13/2011 CALL DO, MARC K 719.07 Edema Foot 10/13/2011 CALL DO, MARC K 719.07 Edema Foot 10/13/2011 CALL DO, MARC K 719.07 Edema Foot 10/13/2011 CALL DO, MARC K 719.07 Edema Foot 10/13/2011 CALL DO, MARC K 719.07 Edema Foot 10/13/2011 CALL DO, MARC K 719.07 Edema Foot 10/13/2011 CALL DO, MARC K 719.07 Edema Foot 10/13/2011 BG COMERSCARMEN 719.07 Edema Foot 10/13/2011 CALL DO, MARC K 719.07 Edema Foot 10/13/2011 CALL DO, MARC K 719.07 Edema Foot 10/13/2011 BG COMERSLIZBETH 719.07 Edema Foot 10/13/2011 BG COMERSCARMEN 719.07 Edema Foot 10/13/2011 CALL DO, MARC K 719.07 Edema Foot 10/13/2011 CALL DO, MARC K 719.07 Edema Foot 10/13/2011 ISAAC BLIND LACER, NORA R 719.07 Edema Foot 10/13/2011 CALL DO, MARC K 719.07 Edema Foot 10/13/2011 CALL DO, MARC K 719.07 Edema Foot 10/13/2011 FLAKO DPM, RON 719.07 Edema Foot 10/13/2011 ISAAC BLIND LACER, NORA R 719.07 Edema Foot 10/13/2011 ISAAC BLIND LACER, NORA R 719.07 Edema Foot 10/13/2011 ISAAC BLIND LACER, NORA R 719.07 Edema Foot 10/13/2011 AALIYAH BLIND LACER, MELVIN A 719.07 Edema Foot 10/13/2011 CALL DO, MARC K 719.07 Edema Foot 10/13/2011 ISAAC BLIND LACER, NORA R 719.07 Edema Foot 10/13/2011 FLAKO DPM, RON 719.07 Edema Foot 10/13/2011 FLAKO DPM, RON 719.07 Edema Foot 10/13/2011 CARLOS CHAMPION, LEANDRO 719.07 Edema Foot 11/16/2011 Ot 719.46 JOINT PAIN-L/LEG 11/16/2011 Ot V57.1 PHYSICAL THERAPY NEC 12/08/2011 Ot 174.9 MALIGN NEOPL BREAST NOS 12/08/2011 Ot 457.1 OTHER LYMPHEDEMA 12/08/2011 Ot V57.21 ENCOUNTER FOR OCCUPATIONAL THERAPY 01/03/2012 MARC CALL DO V03.82 PPV23 (PNEUMOVAX) DX 01/03/2012 MARC CALL DO V03.82 PPV23 (PNEUMOVAX) DX 01/03/2012 MARC CALL DO V03.82 Ppv23 (pneumovax) Dx 01/03/2012 MARC CALL DO V03.82 Ppv23 (pneumovax) Dx 01/03/2012 V03.82 Ppv23 (pneumovax) Dx 01/03/2012 MARC CALL DO V03.82 Ppv23 (pneumovax) Dx 01/03/2012 V03.82 Ppv23 (pneumovax) Dx 01/03/2012 V03.82 Ppv23 (pneumovax) Dx 01/03/2012 MARC CALL DO V03.82 Ppv23 (pneumovax) Dx 01/03/2012 V03.82 Ppv23 (pneumovax) Dx 01/03/2012 V03.82 Ppv23 (pneumovax) Dx 01/03/2012 V03.82 Ppv23 (pneumovax) Dx 01/03/2012 VARUN HARRISON APRN V03.82 Ppv23 (pneumovax) Dx 01/03/2012 V03.82 Ppv23 (pneumovax) Dx 01/03/2012 V03.82 Ppv23 (pneumovax) Dx 01/03/2012 V03.82 Ppv23 (pneumovax) Dx 01/03/2012 V03.82 Ppv23 (pneumovax) Dx 01/03/2012 V03.82 Ppv23 (pneumovax) Dx 01/03/2012 CALL DO, MARC K V03.82 Ppv23 (pneumovax) Dx 01/03/2012 CALL DO, MARC K V03.82 Ppv23 (pneumovax) Dx 01/03/2012 CALL DO, MARC K V03.82 Ppv23 (pneumovax) Dx 01/03/2012 CALL DO, MARC K V03.82 Ppv23 (pneumovax) Dx 01/03/2012 CALL DO, MARC K V03.82 Ppv23 (pneumovax) Dx 01/03/2012 CALL DO, MARC K V03.82 Ppv23 (pneumovax) Dx 01/03/2012 CALL DO, MARC K V03.82 Ppv23 (pneumovax) Dx 01/03/2012 WHITE DDS, CARMEN Camejo V03.82 Ppv23 (pneumovax) Dx 01/03/2012 CALL DO, MARC K V03.82 Ppv23 (pneumovax) Dx 01/03/2012 CALL DO, MARC K V03.82 Ppv23 (pneumovax) Dx 01/03/2012 WHITE DDS, LIZBETH Devries V03.82 Ppv23 (pneumovax) Dx 01/03/2012 WHITE DDS, CARMEN Camejo V03.82 Ppv23 (pneumovax) Dx 01/03/2012 CALL DO, MARC K V03.82 Ppv23 (pneumovax) Dx 01/03/2012 CALL DO, MARC K V03.82 Ppv23 (pneumovax) Dx 01/03/2012 NORA GRAY APRN V03.82 Ppv23 (pneumovax) Dx 01/03/2012 CALL DO, MARC K V03.82 Ppv23 (pneumovax) Dx 01/03/2012 CALL DO, MARC K V03.82 Ppv23 (pneumovax) Dx 01/03/2012 FLAKO DPM, RON V03.82 Ppv23 (pneumovax) Dx 01/03/2012 ISAAC BLIND LACER, NORA R V03.82 Ppv23 (pneumovax) Dx 01/03/2012 ISAAC BLIND LACER, NORA R V03.82 Ppv23 (pneumovax) Dx 01/03/2012 ISAAC BLIND LACER, NORA R V03.82 Ppv23 (pneumovax) Dx 01/03/2012 AALIYAH BLIND LACER, MELVIN A V03.82 Ppv23 (pneumovax) Dx 01/03/2012 CALL DO, MARC K V03.82 Ppv23 (pneumovax) Dx 01/03/2012 ISAAC BLIND LACER, NORA R V03.82 Ppv23 (pneumovax) Dx 01/03/2012 FLAKO DPM, RON V03.82 Ppv23 (pneumovax) Dx 01/03/2012 FLAKO DPM, RON V03.82 Ppv23 (pneumovax) Dx 01/03/2012 CARLOS CHAMPION, LEANDRO V03.82 Ppv23 (pneumovax) Dx 01/10/2012 Ot 174.9 MALIGN NEOPL BREAST NOS 03/13/2012 Ot 244.9 HYPOTHYROIDISM NOS 03/13/2012 Ot 250.00 DIAB SUGAR WO COMPL, TYPE II OR UNSPEC TY 03/13/2012 Ot 272.4 HYPERLIPIDEMIA NEC/NOS 03/13/2012 Ot 276.8 HYPOPOTASSEMIA 03/13/2012 Ot 278.00 OBESITY, NOS 03/13/2012 Ot 401.9 HYPERTENSION NOS 03/13/2012 Ot 573.8 LIVER DISORDERS NEC 03/13/2012 Ot 682.2 CELLULITIS OF TRUNK 03/13/2012 Ot V10.3 HX OF BREAST MALIGNANCY 03/13/2012 Ot V15.3 HX OF IRRADIATION 03/13/2012 Ot V45.71 ACQUIRED ABSENCE OF BREAST AND NIPPLE 03/13/2012 Ot V85.36 BODY MASS INDEX 36.0-36.9, ADULT 03/13/2012 Ot 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 03/18/2012 MARC CALL DO 789.04 Abdominal Pain Left Lower Quadrant 03/18/2012 CALL DO, MARC K 789.04 Abdominal Pain Left Lower Quadrant 03/18/2012 789.04 Abdominal Pain Left Lower Quadrant 03/18/2012 CALL DO, MARC K 789.04 Abdominal Pain Left Lower Quadrant 03/18/2012 789.04 Abdominal Pain Left Lower Quadrant 03/18/2012 789.04 Abdominal Pain Left Lower Quadrant 03/18/2012 CALL DO, MARC K 789.04 Abdominal Pain Left Lower Quadrant 03/18/2012 789.04 Abdominal Pain Left Lower Quadrant 03/18/2012 789.04 Abdominal Pain Left Lower Quadrant 03/18/2012 789.04 Abdominal Pain Left Lower Quadrant 03/18/2012 VARUN HARRISON APRN 789.04 Abdominal Pain Left Lower Quadrant 03/18/2012 789.04 Abdominal Pain Left Lower Quadrant 03/18/2012 789.04 Abdominal Pain Left Lower Quadrant 03/18/2012 789.04 Abdominal Pain Left Lower Quadrant 03/18/2012 789.04 Abdominal Pain Left Lower Quadrant 03/18/2012 789.04 Abdominal Pain Left Lower Quadrant 03/18/2012 CALL DO, MARC K 789.04 Abdominal Pain Left Lower Quadrant 03/18/2012 CALL DO, MRAC K 789.04 Abdominal Pain Left Lower Quadrant 03/18/2012 CALL DO, MARC K 789.04 Abdominal Pain Left Lower Quadrant 03/18/2012 CALL DO, MARC K 789.04 Abdominal Pain Left Lower Quadrant 03/18/2012 CALL DO, MARC K 789.04 Abdominal Pain Left Lower Quadrant 03/18/2012 CALL DO, MARC K 789.04 Abdominal Pain Left Lower Quadrant 03/18/2012 CLAL DO, MARC K 789.04 Abdominal Pain Left Lower Quadrant 03/18/2012 WHITE DDS, CARMEN Camejo 789.04 Abdominal Pain Left Lower Quadrant 03/18/2012 CALL DO, MARC K 789.04 Abdominal Pain Left Lower Quadrant 03/18/2012 CALL DO, MARC K 789.04 Abdominal Pain Left Lower Quadrant 03/18/2012 WHITE DDSLIZBETH 789.04 Abdominal Pain Left Lower Quadrant 03/18/2012 WHITE DDS, CARMEN Camejo 789.04 Abdominal Pain Left Lower Quadrant 03/18/2012 CALL DO, MARC K 789.04 Abdominal Pain Left Lower Quadrant 03/18/2012 CALL DO, MARC K 789.04 Abdominal Pain Left Lower Quadrant 03/18/2012 ISAAC BLIND LACER, NORA R 789.04 Abdominal Pain Left Lower Quadrant 03/18/2012 CALL DO, MARC K 789.04 Abdominal Pain Left Lower Quadrant 03/18/2012 CALL DO, MARC K 789.04 Abdominal Pain Left Lower Quadrant 03/18/2012 FLAKO DPM, RON 789.04 Abdominal Pain Left Lower Quadrant 03/18/2012 ISAAC BLIND LACER, NORA R 789.04 Abdominal Pain Left Lower Quadrant 03/18/2012 ISAAC BLIND LACER, NORA R 789.04 Abdominal Pain Left Lower Quadrant 03/18/2012 ISAAC BLIND LACER, NORA R 789.04 Abdominal Pain Left Lower Quadrant 03/18/2012 AALIYAH BLIND LACER, MELVIN A 789.04 Abdominal Pain Left Lower Quadrant 03/18/2012 CALL DO, MARC K 789.04 Abdominal Pain Left Lower Quadrant 03/18/2012 ISAAC BLIND LACER, NORA R 789.04 Abdominal Pain Left Lower Quadrant 03/18/2012 FLAKO DPM, RON 789.04 Abdominal Pain Left Lower Quadrant 03/18/2012 FLAKO DPM, RON 789.04 Abdominal Pain Left Lower Quadrant 03/18/2012 CARLOS CHAMPION, LEANDRO 789.04 Abdominal Pain Left Lower Quadrant 03/21/2012 Ot 174.9 MALIGN NEOPL BREAST NOS 03/21/2012 Ot V58.81 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 04/22/2012 682.9 SKIN ABSCESS OF EXTREMITY 04/22/2012 682.9 SKIN ABSCESS OF EXTREMITY 04/22/2012 MARC CALL DO 682.9 SKIN ABSCESS OF EXTREMITY 04/22/2012 682.9 SKIN ABSCESS OF EXTREMITY 04/22/2012 682.9 SKIN ABSCESS OF EXTREMITY 04/22/2012 682.9 SKIN ABSCESS OF EXTREMITY 04/22/2012 VARUN HARRISON APRN 682.9 SKIN ABSCESS OF EXTREMITY 04/22/2012 682.9 SKIN ABSCESS OF EXTREMITY 04/22/2012 682.9 SKIN ABSCESS OF EXTREMITY 04/22/2012 682.9 SKIN ABSCESS OF EXTREMITY 04/22/2012 682.9 SKIN ABSCESS OF EXTREMITY 04/22/2012 682.9 SKIN ABSCESS OF EXTREMITY 04/22/2012 CALL DO, MARC K 682.9 SKIN ABSCESS OF EXTREMITY 04/22/2012 CALL DO, MARC K 682.9 SKIN ABSCESS OF EXTREMITY 04/22/2012 CALL DO, MARC K 682.9 SKIN ABSCESS OF EXTREMITY 04/22/2012 CALL DO, MARC K 682.9 SKIN ABSCESS OF EXTREMITY 04/22/2012 CALL DO, MARC K 682.9 SKIN ABSCESS OF EXTREMITY 04/22/2012 CALL DO, MARC K 682.9 SKIN ABSCESS OF EXTREMITY 04/22/2012 CALL DO, MARC K 682.9 SKIN ABSCESS OF EXTREMITY 04/22/2012 WHITE DDS, CARMEN D 682.9 SKIN ABSCESS OF EXTREMITY 04/22/2012 CALL DO, MARC K 682.9 SKIN ABSCESS OF EXTREMITY 04/22/2012 CALL DO, MARC K 682.9 SKIN ABSCESS OF EXTREMITY 04/22/2012 WHITE DDS, LIZBETH J 682.9 SKIN ABSCESS OF EXTREMITY 04/22/2012 WHITE DDS, CARMEN D 682.9 SKIN ABSCESS OF EXTREMITY 04/22/2012 CALL DO, MARC K 682.9 SKIN ABSCESS OF EXTREMITY 04/22/2012 CALL DO, MARC K 682.9 SKIN ABSCESS OF EXTREMITY 04/22/2012 ISAAC BLIND LACER, NORA R 682.9 SKIN ABSCESS OF EXTREMITY 04/22/2012 CALL DO, MARC K 682.9 SKIN ABSCESS OF EXTREMITY 04/22/2012 CALL DO, MARC K 682.9 SKIN ABSCESS OF EXTREMITY 04/22/2012 FLAKO DPM, RON 682.9 SKIN ABSCESS OF EXTREMITY 04/22/2012 ISAAC BLIND LACER, NORA R 682.9 SKIN ABSCESS OF EXTREMITY 04/22/2012 ISAAC BLIND LACER, NORA R 682.9 SKIN ABSCESS OF EXTREMITY 04/22/2012 ISAAC BLIND LACER, NORA R 682.9 SKIN ABSCESS OF EXTREMITY 04/22/2012 AALIYAH BLIND LACER, MELVIN A 682.9 SKIN ABSCESS OF EXTREMITY 04/22/2012 CALL DO, MARC K 682.9 SKIN ABSCESS OF EXTREMITY 04/22/2012 ISAAC BLIND LACER, NORA R 682.9 SKIN ABSCESS OF EXTREMITY 04/22/2012 FLAKO DPM, RON 682.9 SKIN ABSCESS OF EXTREMITY 04/22/2012 FLAKO DPM, RON 682.9 SKIN ABSCESS OF EXTREMITY 04/22/2012 CARLOS CHAMPION, LEANDOR 682.9 SKIN ABSCESS OF EXTREMITY 04/27/2012 V58.31 WOUND DRESSING 04/27/2012 V58.31 WOUND DRESSING 04/27/2012 V58.31 WOUND DRESSING 04/27/2012 VARUN HARRISON APRN V58.31 WOUND DRESSING 04/27/2012 V58.31 WOUND DRESSING 04/27/2012 V58.31 WOUND DRESSING 04/27/2012 V58.31 WOUND DRESSING 04/27/2012 V58.31 WOUND DRESSING 04/27/2012 V58.31 WOUND DRESSING 04/27/2012 CALL DO, MARC K V58.31 WOUND DRESSING 04/27/2012 CALL DO, MARC K V58.31 WOUND DRESSING 04/27/2012 CALL DO, MARC K V58.31 WOUND DRESSING 04/27/2012 CALL DO, MARC K V58.31 WOUND DRESSING 04/27/2012 CALL DO, MARC K V58.31 WOUND DRESSING 04/27/2012 CALL DO, MARC K V58.31 WOUND DRESSING 04/27/2012 CALL DO, MARC K V58.31 WOUND DRESSING 04/27/2012 WHITE DDS, CARMEN D V58.31 WOUND DRESSING 04/27/2012 CALL DO, MARC K V58.31 WOUND DRESSING 04/27/2012 CALL DO, MARC K V58.31 WOUND DRESSING 04/27/2012 WHITE DDS, LIZBETH J V58.31 WOUND DRESSING 04/27/2012 WHITE DDS, CARMEN D V58.31 WOUND DRESSING 04/27/2012 CALL DO, MARC K V58.31 WOUND DRESSING 04/27/2012 CALL DO, MARC K V58.31 WOUND DRESSING 04/27/2012 ISAAC BLIND LACER, NORA R V58.31 WOUND DRESSING 04/27/2012 CALL DO, MARC K V58.31 WOUND DRESSING 04/27/2012 CALL DO, MARC K V58.31 WOUND DRESSING 04/27/2012 FLAKO DPM, RON V58.31 WOUND DRESSING 04/27/2012 ISAAC BLIND LACER, NORA R V58.31 WOUND DRESSING 04/27/2012 ISAAC BLIND LACER, NORA R V58.31 WOUND DRESSING 04/27/2012 ISAAC BLIND LACER, NORA R V58.31 WOUND DRESSING 04/27/2012 MELVIN FISCHER APRN V58.31 WOUND DRESSING 04/27/2012 CALL DO, MARC K V58.31 WOUND DRESSING 04/27/2012 NORA GRAY APRN V58.31 WOUND DRESSING 04/27/2012 FLAKO DPM, RON V58.31 WOUND DRESSING 04/27/2012 FLAKO DPM, RON V58.31 WOUND DRESSING 04/27/2012 LEANDRO GONZALEZ MD V58.31 WOUND DRESSING 06/26/2012 [facility] Ot 174.9 MALIGN NEOPL BREAST NOS 06/26/2012 [facility] Ot 196.3 MAL CRISTHIAN LYMPH-AXILLA/ARM 06/26/2012 [facility] Ot 457.1 OTHER LYMPHEDEMA 06/26/2012 [facility] Ot V15.3 HX OF IRRADIATION 06/26/2012 [facility] Ot V58.69 OTH MED,LT,CURRENT USE 06/26/2012 [facility] Ot V58.81 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 06/26/2012 [facility] Ot 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 07/03/2012 530.5 DYSPHAGIA 07/03/2012 530.5 DYSPHAGIA 07/03/2012 530.5 DYSPHAGIA 07/03/2012 530.5 DYSPHAGIA 07/03/2012 CALL DO, MARC K 530.5 DYSPHAGIA 07/03/2012 CALL DO, MARC K 530.5 DYSPHAGIA 07/03/2012 CALL DO, MARC K 530.5 DYSPHAGIA 07/03/2012 CALL DO, MARC K 530.5 DYSPHAGIA 07/03/2012 CALL DO, MARC K 530.5 DYSPHAGIA 07/03/2012 CALL DO, MARC K 530.5 DYSPHAGIA 07/03/2012 CALL DO, MARC K 530.5 DYSPHAGIA 07/03/2012 WHITE DDS, CARMEN D 530.5 DYSPHAGIA 07/03/2012 CALL DO, MARC K 530.5 DYSPHAGIA 07/03/2012 CALL DO, MARC K 530.5 DYSPHAGIA 07/03/2012 WHITE DDS, LIZBETH J 530.5 DYSPHAGIA 07/03/2012 WHITE DDS, CARMEN D 530.5 DYSPHAGIA 07/03/2012 CALL DO, MARC K 530.5 DYSPHAGIA 07/03/2012 CALL DO, MARC K 530.5 DYSPHAGIA 07/03/2012 ISAAC BLIND LACER, NORA R 530.5 DYSPHAGIA 07/03/2012 CALL DO, MARC K 530.5 DYSPHAGIA 07/03/2012 CALL DO, MARC K 530.5 DYSPHAGIA 07/03/2012 FLAKO DPM, RON 530.5 DYSPHAGIA 07/03/2012 ISAAC BLIND LACER, NORA R 530.5 DYSPHAGIA 07/03/2012 ISAAC BLIND LACER, NORA R 530.5 DYSPHAGIA 07/03/2012 ISAAC BLIND LACER, NORA R 530.5 DYSPHAGIA 07/03/2012 AALIYAH BLIND LACER, MELVIN A 530.5 DYSPHAGIA 07/03/2012 CALL DO, MARC K 530.5 DYSPHAGIA 07/03/2012 ISAAC BLIND LACER, NORA R 530.5 DYSPHAGIA 07/03/2012 FLAKO DPM, RON 530.5 DYSPHAGIA 07/03/2012 FLAKO DPM, RON 530.5 DYSPHAGIA 07/03/2012 CARLOS CHAMPION, LEANDRO 530.5 DYSPHAGIA 08/02/2012 735.4 HAMMER TOE (ACQUIRED) 08/02/2012 735.4 HAMMER TOE (ACQUIRED) 08/02/2012 735.4 HAMMER TOE (ACQUIRED) 08/02/2012 CALL DO, MARC K 735.4 HAMMER TOE (ACQUIRED) 08/02/2012 CALL DO, MARC K 735.4 HAMMER TOE (ACQUIRED) 08/02/2012 CALL DO, MARC K 735.4 HAMMER TOE (ACQUIRED) 08/02/2012 CALL DO, MARC K 735.4 HAMMER TOE (ACQUIRED) 08/02/2012 CALL DO, MARC K 735.4 HAMMER TOE (ACQUIRED) 08/02/2012 CALL DO, MARC K 735.4 HAMMER TOE (ACQUIRED) 08/02/2012 CALL DO, MARC K 735.4 HAMMER TOE (ACQUIRED) 08/02/2012 WHITE DDS, CARMEN Camejo 735.4 HAMMER TOE (ACQUIRED) 08/02/2012 CALL DO, MARC K 735.4 HAMMER TOE (ACQUIRED) 08/02/2012 CALL DO, MARC K 735.4 HAMMER TOE (ACQUIRED) 08/02/2012 WHITE DDS, LIZBETH Devries 735.4 HAMMER TOE (ACQUIRED) 08/02/2012 WHITE DDS, CARMEN Camejo 735.4 HAMMER TOE (ACQUIRED) 08/02/2012 CALL DO, MARC K 735.4 HAMMER TOE (ACQUIRED) 08/02/2012 CALL DO, MARC K 735.4 HAMMER TOE (ACQUIRED) 08/02/2012 ISAAC BLIND LACER, NORA R 735.4 HAMMER TOE (ACQUIRED) 08/02/2012 CALL DO, MARC K 735.4 HAMMER TOE (ACQUIRED) 08/02/2012 CALL DO, MARC K 735.4 HAMMER TOE (ACQUIRED) 08/02/2012 FLAKO DPM, RON 735.4 HAMMER TOE (ACQUIRED) 08/02/2012 ISAAC BLIND LACER, NORA R 735.4 HAMMER TOE (ACQUIRED) 08/02/2012 ISAAC BLIND LACER, NORA R 735.4 HAMMER TOE (ACQUIRED) 08/02/2012 ISAAC BLIND LACER, NORA R 735.4 HAMMER TOE (ACQUIRED) 08/02/2012 AALIYAH BLIND LACER, MELVIN A 735.4 HAMMER TOE (ACQUIRED) 08/02/2012 CALL DO, MARC K 735.4 HAMMER TOE (ACQUIRED) 08/02/2012 ISAAC BLIND LACER, NORA R 735.4 HAMMER TOE (ACQUIRED) 08/02/2012 FLAKO DPM, RON 735.4 HAMMER TOE (ACQUIRED) 08/02/2012 FLAKO DPM, RON 735.4 HAMMER TOE (ACQUIRED) 08/02/2012 CARLOS CHAMPION, LEANDRO 735.4 HAMMER TOE (ACQUIRED) 08/26/2012 787.20 DYSPHAGIA, UNSPECIFIED 08/26/2012 CALL DO, MARC K 787.20 DYSPHAGIA, UNSPECIFIED 08/26/2012 CALL DO, MARC K 787.20 DYSPHAGIA, UNSPECIFIED 08/26/2012 CALL DO, MARC K 787.20 DYSPHAGIA, UNSPECIFIED 08/26/2012 CALL DO, MARC K 787.20 DYSPHAGIA, UNSPECIFIED 08/26/2012 CALL DO, MARC K 787.20 DYSPHAGIA, UNSPECIFIED 08/26/2012 CALL DO, MARC K 787.20 DYSPHAGIA, UNSPECIFIED 08/26/2012 CALL DO, MARC K 787.20 DYSPHAGIA, UNSPECIFIED 08/26/2012 BG COMERS, CARMEN Camejo 787.20 DYSPHAGIA, UNSPECIFIED 08/26/2012 CALL DO, MARC K 787.20 DYSPHAGIA, UNSPECIFIED 08/26/2012 CALL DO, MARC K 787.20 DYSPHAGIA, UNSPECIFIED 08/26/2012 WHITE DDS, LIZBETH Kayce 787.20 DYSPHAGIA, UNSPECIFIED 08/26/2012 WHITE DDS, CARMEN Bashir 787.20 DYSPHAGIA, UNSPECIFIED 08/26/2012 CALL DO, MARC K 787.20 DYSPHAGIA, UNSPECIFIED 08/26/2012 CALL DO, MARC K 787.20 DYSPHAGIA, UNSPECIFIED 08/26/2012 ISAAC BLIND LACER, NORA R 787.20 DYSPHAGIA, UNSPECIFIED 08/26/2012 CALL DO, MARC K 787.20 DYSPHAGIA, UNSPECIFIED 08/26/2012 CALL DO, MARC K 787.20 DYSPHAGIA, UNSPECIFIED 08/26/2012 FLAKO DPM, RON 787.20 DYSPHAGIA, UNSPECIFIED 08/26/2012 ISAAC BLIND LACER, NORA R 787.20 DYSPHAGIA, UNSPECIFIED 08/26/2012 ISAAC BLIND LACER, NORA R 787.20 DYSPHAGIA, UNSPECIFIED 08/26/2012 ISAAC BLIND LACER, NORA R 787.20 DYSPHAGIA, UNSPECIFIED 08/26/2012 AALIYAH GARYN, MELVIN A 787.20 DYSPHAGIA, UNSPECIFIED 08/26/2012 CALL DO, MARC K 787.20 DYSPHAGIA, UNSPECIFIED 08/26/2012 ISAAC BLIND LACER, NORA R 787.20 DYSPHAGIA, UNSPECIFIED 08/26/2012 FLAKO DPM, RON 787.20 DYSPHAGIA, UNSPECIFIED 08/26/2012 FLAKO DPM, RON 787.20 DYSPHAGIA, UNSPECIFIED 08/26/2012 CARLOS CHAMPION, LEANDRO 787.20 DYSPHAGIA, UNSPECIFIED 09/09/2012 FATIMAH CHAMPION, KEYLA Bar Ot 535.50 UNSP GASTRITIS GASTRODUODENITIS W/O ME 10/30/2012 [facility] Ot 174.9 MALIGN NEOPL BREAST NOS 10/30/2012 [facility] Ot V58.81 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 11/08/2012 CALL DO, MARC K V04.81 FLU SHOT 11/08/2012 CALL DO, MARC K V04.81 FLU SHOT 11/08/2012 CALL DO, MARC K V04.81 FLU SHOT 11/08/2012 CALL DO, MARC K V04.81 FLU SHOT 11/08/2012 CALL DO, MARC K V04.81 FLU SHOT 11/08/2012 CALL DO, MARC K V04.81 FLU SHOT 11/08/2012 WHITE DDS, CARMEN Camejo V04.81 FLU SHOT 11/08/2012 CALL DO, MARC K V04.81 FLU SHOT 11/08/2012 CALL DO, MARC K V04.81 FLU SHOT 11/08/2012 WHITE DDS, LIZBETH Devries V04.81 FLU SHOT 11/08/2012 WHITE DDS, CARMEN Camejo V04.81 FLU SHOT 11/08/2012 CALL DO, MARC K V04.81 FLU SHOT 11/08/2012 CALL DO, MARC K V04.81 FLU SHOT 11/08/2012 ISAAC BLIND LACER, NORA R V04.81 FLU SHOT 11/08/2012 CALL DO, MARC K V04.81 FLU SHOT 11/08/2012 CALL DO, MARC K V04.81 FLU SHOT 11/08/2012 FLAKO DPM, RON V04.81 FLU SHOT 11/08/2012 ISAAC BLIND LACER, NORA R V04.81 FLU SHOT 11/08/2012 ISAAC BLIND LACER, NORA R V04.81 FLU SHOT 11/08/2012 ISAAC BLIND LACER, NORA R V04.81 FLU SHOT 11/08/2012 AALIYAH BLIND LACER, MELVIN A V04.81 FLU SHOT 11/08/2012 CALL DO, MARC K V04.81 FLU SHOT 11/08/2012 ISAAC BLIND LACER, NORA R V04.81 FLU SHOT 11/08/2012 FLAKO DPM, RON V04.81 FLU SHOT 11/08/2012 FLAKO DPM, RON V04.81 FLU SHOT 11/08/2012 LEANDRO GONZALEZ MD V04.81 FLU SHOT 03/25/2013 WHITE DDS, CARMEN Camejo 054.9 HERPES SIMPLEX ANY SITE 03/25/2013 CALL DO, MARC K 054.9 HERPES SIMPLEX ANY SITE 03/25/2013 CALL DO, MARC K 054.9 HERPES SIMPLEX ANY SITE 03/25/2013 WHITE DDS, LIZBETH Devries 054.9 HERPES SIMPLEX ANY SITE 03/25/2013 WHITE DDS, CARMEN Camejo 054.9 HERPES SIMPLEX ANY SITE 03/25/2013 CALL DO, MARC K 054.9 HERPES SIMPLEX ANY SITE 03/25/2013 CALL DO, MARC K 054.9 HERPES SIMPLEX ANY SITE 03/25/2013 ISAAC BLIND LACER, NORA R 054.9 HERPES SIMPLEX ANY SITE 03/25/2013 CALL DO, MARC K 054.9 HERPES SIMPLEX ANY SITE 03/25/2013 CALL DO, MARC K 054.9 HERPES SIMPLEX ANY SITE 03/25/2013 FLAKO DPM, RON 054.9 HERPES SIMPLEX ANY SITE 03/25/2013 ISAAC BLIND LACER, NORA R 054.9 HERPES SIMPLEX ANY SITE 03/25/2013 ISAAC BLIND LACER, NORA R 054.9 HERPES SIMPLEX ANY SITE 03/25/2013 ISAAC BLIND LACER, NORA R 054.9 HERPES SIMPLEX ANY SITE 03/25/2013 AALIYAH BLIND LACER, MELVIN A 054.9 HERPES SIMPLEX ANY SITE 03/25/2013 CALL DO, MARC K 054.9 HERPES SIMPLEX ANY SITE 03/25/2013 ISAAC BLIND LACER, NORA R 054.9 HERPES SIMPLEX ANY SITE 03/25/2013 FLAKO DPM, RON 054.9 HERPES SIMPLEX ANY SITE 03/25/2013 FLAKO DPM, RON 054.9 HERPES SIMPLEX ANY SITE 03/25/2013 CARLOS CHAMPION, LEANDRO 054.9 HERPES SIMPLEX ANY SITE 04/08/2013 [facility] Ot 174.9 MALIGN NEOPL BREAST NOS 04/08/2013 [facility] Ot V58.81 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 08/04/2013 ONEYDA LOJA MARC K 682.9 CELLULITIS AND ABSCESS OF UNSPECIFIED SITES 08/04/2013 ONEYDA LOJA MARC K 780.50 UNSPECIFIED SLEEP DISTURBANCE 08/04/2013 ONEYDA LOJA, MARC K 780.99 OTHER GENERAL SYMPTOMS 08/04/2013 CALL , MARC K 682.9 CELLULITIS AND ABSCESS OF UNSPECIFIED SITES 08/04/2013 CALL , MARC K 780.50 UNSPECIFIED SLEEP DISTURBANCE 08/04/2013 CALL , MARC K 780.99 OTHER GENERAL SYMPTOMS 08/04/2013 ISAAC BLIND LACER, NORA R 682.9 CELLULITIS AND ABSCESS OF UNSPECIFIED SITES 08/04/2013 ISAAC BLIND LACER, NORA R 780.50 UNSPECIFIED SLEEP DISTURBANCE 08/04/2013 ISAAC BLIND LACER, NORA R 780.99 OTHER GENERAL SYMPTOMS 08/04/2013 CALL DO, MARC K 682.9 CELLULITIS AND ABSCESS OF UNSPECIFIED SITES 08/04/2013 CALL DO, MARC K 780.50 UNSPECIFIED SLEEP DISTURBANCE 08/04/2013 CALL DO, MARC K 780.99 OTHER GENERAL SYMPTOMS 08/04/2013 CALL DO, MARC K 682.9 CELLULITIS AND ABSCESS OF UNSPECIFIED SITES 08/04/2013 CALL DO, MARC K 780.50 UNSPECIFIED SLEEP DISTURBANCE 08/04/2013 CALL DO, MARC K 780.99 OTHER GENERAL SYMPTOMS 08/04/2013 FLAKO DPM, RON 682.9 CELLULITIS AND ABSCESS OF UNSPECIFIED SITES 08/04/2013 FLAKO DPM, RON 780.50 UNSPECIFIED SLEEP DISTURBANCE 08/04/2013 FLAKO DPM, RON 780.99 OTHER GENERAL SYMPTOMS 08/04/2013 ISAAC BLIND LACER, NORA R 682.9 CELLULITIS AND ABSCESS OF UNSPECIFIED SITES 08/04/2013 ISAAC BLIND LACER, NORA R 780.50 UNSPECIFIED SLEEP DISTURBANCE 08/04/2013 ISAAC BLIND LACER, NORA R 780.99 OTHER GENERAL SYMPTOMS 08/04/2013 ISAAC BLIND LACER, NORA R 682.9 CELLULITIS AND ABSCESS OF UNSPECIFIED SITES 08/04/2013 ISAAC BLIND LACER, NORA R 780.50 UNSPECIFIED SLEEP DISTURBANCE 08/04/2013 ISAAC BLIND LACER, NORA R 780.99 OTHER GENERAL SYMPTOMS 08/04/2013 ISAAC BLIND LACER, NORA R 682.9 CELLULITIS AND ABSCESS OF UNSPECIFIED SITES 08/04/2013 ISAAC BLIND LACER, NORA R 780.50 UNSPECIFIED SLEEP DISTURBANCE 08/04/2013 ISAAC BLIND LACER, NORA R 780.99 OTHER GENERAL SYMPTOMS 08/04/2013 AALIYAH BLIND LACER, MELVIN A 682.9 CELLULITIS AND ABSCESS OF UNSPECIFIED SITES 08/04/2013 AALIYAH BLIND LACER, MELVIN A 780.50 UNSPECIFIED SLEEP DISTURBANCE 08/04/2013 AALIYAH BLIND LACER, MELVIN A 780.99 OTHER GENERAL SYMPTOMS 08/04/2013 CALL DO, MARC K 682.9 CELLULITIS AND ABSCESS OF UNSPECIFIED SITES 08/04/2013 CALL DO, MARC K 780.50 UNSPECIFIED SLEEP DISTURBANCE 08/04/2013 CALL DO, MARC K 780.99 OTHER GENERAL SYMPTOMS 08/04/2013 ISAAC BLIND LACER, NORA R 682.9 CELLULITIS AND ABSCESS OF UNSPECIFIED SITES 08/04/2013 ISAAC BLIND LACER, NORA R 780.50 UNSPECIFIED SLEEP DISTURBANCE 08/04/2013 ISAAC BLIND LACER, NORA R 780.99 OTHER GENERAL SYMPTOMS 08/04/2013 FLAKO DPM, RON 682.9 CELLULITIS AND ABSCESS OF UNSPECIFIED SITES 08/04/2013 FLAKO DPM, RON 780.50 UNSPECIFIED SLEEP DISTURBANCE 08/04/2013 FLAKO DPM, RON 780.99 OTHER GENERAL SYMPTOMS 08/04/2013 FLAKO DPM, RON 682.9 CELLULITIS AND ABSCESS OF UNSPECIFIED SITES 08/04/2013 FLAKO DPM, RON 780.50 UNSPECIFIED SLEEP DISTURBANCE 08/04/2013 FLAKO DPM, RON 780.99 OTHER GENERAL SYMPTOMS 08/04/2013 LEANDRO GONZALEZ MD 682.9 CELLULITIS AND ABSCESS OF UNSPECIFIED SITES 08/04/2013 LEANDRO GONZALEZ MD 780.50 UNSPECIFIED SLEEP DISTURBANCE 08/04/2013 LEANDRO GONZALEZ MD 780.99 OTHER GENERAL SYMPTOMS 08/12/2013 [facility] Ot 174.9 MALIGN NEOPL BREAST NOS 08/12/2013 [facility] Ot V58.81 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 08/13/2013 ISAAC BLIND LACER, NORA R 729.5 PAIN IN LIMB 08/13/2013 CALL DO, MARC K 729.5 PAIN IN LIMB 08/13/2013 CALL DO, MARC K 729.5 PAIN IN LIMB 08/13/2013 FLAKO DPM, RON 729.5 PAIN IN LIMB 08/13/2013 ISAAC GARYN, NORA R 729.5 PAIN IN LIMB 08/13/2013 ISAAC BLIND LACER, NORA R 729.5 PAIN IN LIMB 08/13/2013 ISAAC BLIND LACER, NORA R 729.5 PAIN IN LIMB 08/13/2013 AALIYAHNITIN FUNES, MELVIN A 729.5 PAIN IN LIMB 08/13/2013 CALL DO, MARC K 729.5 PAIN IN LIMB 08/13/2013 ISAAC BLIND LACER, NORA R 729.5 PAIN IN LIMB 08/13/2013 FLAKO DPM, RON 729.5 PAIN IN LIMB 08/13/2013 FLAKO DPM, RON 729.5 PAIN IN LIMB 08/13/2013 LEANDRO GONZALEZ MD 729.5 PAIN IN LIMB 12/17/2013 NORA GRAY APRN R 789.09 ABDOMINAL PAIN OTHER SPECIFIED SITE 12/17/2013 MELVIN FISCHER APRN A 789.09 ABDOMINAL PAIN OTHER SPECIFIED SITE 12/17/2013 CALL DO, MARC K 789.09 ABDOMINAL PAIN OTHER SPECIFIED SITE 12/17/2013 JOSE GRAY APRNINA R 789.09 ABDOMINAL PAIN OTHER SPECIFIED SITE 12/17/2013 FLAKO DPM, RON 789.09 ABDOMINAL PAIN OTHER SPECIFIED SITE 12/17/2013 FLAKO DPM, RON 789.09 ABDOMINAL PAIN OTHER SPECIFIED SITE 12/17/2013 LEANDRO GONZALEZ MD 789.09 ABDOMINAL PAIN OTHER SPECIFIED SITE 12/21/2013 [facility] Ot 174.9 MALIGN NEOPL BREAST NOS 12/21/2013 [facility] Ot V58.81 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 12/22/2013 MELVIN FISCHER APRN A 380.4 IMPACTED CERUMEN 12/22/2013 MELVIN FISCHER APRN A 724.2 LUMBAGO 12/22/2013 CALL DO, MARC K 380.4 IMPACTED CERUMEN 12/22/2013 CALL DO, MARC K 724.2 LUMBAGO 12/22/2013 NORA GRAY APRN R 380.4 IMPACTED CERUMEN 12/22/2013 JOSE GRAY APRNINA R 724.2 LUMBAGO 12/22/2013 FLAKO DPM, RON 380.4 IMPACTED CERUMEN 12/22/2013 FLAKO DPM, RON 724.2 LUMBAGO 12/22/2013 FLAKO DPM, RON 380.4 IMPACTED CERUMEN 12/22/2013 FLAKO DPM, RON 724.2 LUMBAGO 12/22/2013 LEANDRO GONZALEZ MD 380.4 IMPACTED CERUMEN 12/22/2013 LEANDRO GONZALEZ MD 724.2 LUMBAGO 01/27/2014 [facility] Ot 174.9 02/06/2014 NORA GRAY APRN R V70.0 ROUTINE GENERAL MEDICAL EXAMINATION AT A HEALTH CARE FACILITY 02/06/2014 FLAKO DPM, RON V70.0 ROUTINE GENERAL MEDICAL EXAMINATION AT A HEALTH CARE FACILITY 02/06/2014 FLAKO DPM, RON V70.0 ROUTINE GENERAL MEDICAL EXAMINATION AT A HEALTH CARE FACILITY 02/06/2014 LEANDRO GONZALEZ MD V70.0 ROUTINE GENERAL MEDICAL EXAMINATION AT A HEALTH CARE FACILITY 02/10/2014 [facility] Ot 174.9 03/09/2014 Ot 174.9 03/09/2014 Ot 174.9 03/09/2014 Ot V15.3 03/09/2014 Ot 174.9 03/09/2014 Ot 793.81 03/09/2014 Ot 174.9 03/09/2014 Ot 244.9 03/09/2014 Ot 250.02 03/09/2014 Ot 401.1 03/09/2014 Ot 174.9 03/09/2014 Ot 174.9 03/09/2014 Ot 174.9 03/09/2014 Ot V67.9 03/09/2014 Ot 250.00 03/09/2014 Ot 272.1 03/09/2014 Ot 401.1 03/09/2014 Ot 174.9 03/09/2014 Ot 780.4 03/09/2014 Ot 784.2 03/09/2014 Ot V15.88 03/09/2014 Ot 174.9 03/09/2014 Ot 793.81 03/09/2014 Ot 250.00 03/09/2014 Ot 272.4 03/09/2014 Ot 785.9 03/09/2014 Ot 786.05 03/09/2014 Ot 786.09 03/09/2014 Ot 786.50 03/09/2014 Ot V58.69 03/09/2014 Ot V72.63 03/09/2014 Ot V72.81 03/09/2014 Ot V72.83 03/09/2014 Ot 733.90 03/09/2014 Ot 174.9 03/09/2014 Ot 786.50 03/09/2014 Ot 272.4 03/09/2014 Ot 401.9 03/09/2014 Ot V58.69 03/09/2014 Ot 272.4 03/09/2014 Ot 401.9 03/09/2014 Ot V58.69 03/09/2014 Ot 174.9 03/09/2014 Ot 793.82 03/09/2014 Ot 272.4 03/09/2014 Ot V58.69 03/09/2014 Ot 174.9 03/09/2014 Ot 781.2 03/09/2014 Ot 272.4 03/09/2014 Ot 401.9 03/09/2014 Ot V58.69 03/09/2014 BAIHEATHERARIANNA L DREDGE MECHANIC Ot 272.4 03/09/2014 BAIMA ARIANNA L DREDGE MECHANIC Ot V58.69 03/09/2014 FATIMAH CHAMPION, KEYLA Bar Ot V72.84 03/09/2014 KITA, BOBAN N Ot 174.9 03/09/2014 KITA, BOBAN N Ot 728.87 03/09/2014 KITA, BOBAN N Ot V58.69 03/09/2014 KITA, BOBAN N Ot 174.9 03/09/2014 JUNIOR HILAH S DREDGE MECHANIC Ot 174.9 03/09/2014 JUNIOR HILAH S DREDGE MECHANIC Ot V58.69 03/09/2014 JUNIOR HILAH S DREDGE MECHANIC Ot 733.90 03/09/2014 YUE ARIANNA L DREDGE MECHANIC Ot 272.4 03/09/2014 BAIMA ARIANNA L DREDGE MECHANIC Ot V58.69 03/09/2014 BAIMA ARIANNA L DREDGE MECHANIC Ot 433.10 03/09/2014 KITA, BOBAN N Ot 174.9 03/09/2014 NORA GRAY R BLIND LACER Ot 454.9 03/09/2014 NORA GRAY R BLIND LACER Ot 729.5 03/09/2014 KITA, BOBAN N Ot 174.9 03/09/2014 KIAT, BOBAN N Ot 253.8 03/09/2014 KITA, BOBAN N Ot 437.1 03/09/2014 KITA, BOBAN N Ot 780.97 03/09/2014 JUNIORMK Infante S DREDGE MECHANIC Ot 174.9 03/09/2014 JUNIOR HILAH S DREDGE MECHANIC Ot 174.9 03/09/2014 KITA, BOBAN N Ot 174.9 03/09/2014 KITA, BOBAN N Ot V58.81 03/09/2014 KITA, BOBAN N Ot 174.9 03/09/2014 KITA, BOBAN N Ot V58.81 03/09/2014 KITA, BOBAN N Ot 174.9 03/09/2014 KITA, BOBAN N Ot V58.81 03/09/2014 KITA, BOBAN N Ot 174.9 03/09/2014 KITA, BOBAN N Ot V58.81 03/09/2014 [facility] N Ot 174.9 03/09/2014 [facility] N Ot V58.81 03/10/2014 [facility] N Ot 174.9 03/10/2014 [facility] N Ot V58.81 04/07/2014 Ot 174.9 04/07/2014 Ot 174.9 04/07/2014 Ot V15.3 04/07/2014 Ot 174.9 04/07/2014 Ot 793.81 04/07/2014 Ot 174.9 04/07/2014 Ot 244.9 04/07/2014 Ot 250.02 04/07/2014 Ot 401.1 04/07/2014 Ot 174.9 04/07/2014 Ot 174.9 04/07/2014 Ot 174.9 04/07/2014 Ot V67.9 04/07/2014 Ot 250.00 04/07/2014 Ot 272.1 04/07/2014 Ot 401.1 04/07/2014 Ot 174.9 04/07/2014 Ot 780.4 04/07/2014 Ot 784.2 04/07/2014 Ot V15.88 04/07/2014 Ot 174.9 04/07/2014 Ot 793.81 04/07/2014 Ot 250.00 04/07/2014 Ot 272.4 04/07/2014 Ot 785.9 04/07/2014 Ot 786.05 04/07/2014 Ot 786.09 04/07/2014 Ot 786.50 04/07/2014 Ot V58.69 04/07/2014 Ot V72.63 04/07/2014 Ot V72.81 04/07/2014 Ot V72.83 04/07/2014 Ot 733.90 04/07/2014 Ot 174.9 04/07/2014 Ot 786.50 04/07/2014 Ot 272.4 04/07/2014 Ot 401.9 04/07/2014 Ot V58.69 04/07/2014 Ot 272.4 04/07/2014 Ot 401.9 04/07/2014 Ot V58.69 04/07/2014 Ot 174.9 04/07/2014 Ot 793.82 04/07/2014 Ot 272.4 04/07/2014 Ot V58.69 04/07/2014 Ot 174.9 04/07/2014 Ot 781.2 04/07/2014 Ot 272.4 04/07/2014 Ot 401.9 04/07/2014 Ot V58.69 04/07/2014 BAIMA ARIANNA L DREDGE MECHANIC Ot 272.4 04/07/2014 BAIMA, ARIANNA L DREDGE MECHANIC Ot V58.69 04/07/2014 FATIMAH CHAMPION, KEYLA Bar Ot V72.84 04/07/2014 KITA, BOBAN N Ot 174.9 04/07/2014 KITA, BOBAN N Ot 728.87 04/07/2014 KITA, BOBAN N Ot V58.69 04/07/2014 KITA, BOBAN N Ot 174.9 04/07/2014 JUNIOR HILAH S DREDGE MECHANIC Ot 174.9 04/07/2014 JUNIOR, HILAH S DREDGE MECHANIC Ot V58.69 04/07/2014 JUNIOR HILAH S DREDGE MECHANIC Ot 733.90 04/07/2014 ARIANNA TURNER L DREDGE MECHANIC Ot 272.4 04/07/2014 BAIMA ARIANNA L DREDGE MECHANIC Ot V58.69 04/07/2014 BAIMA ARIANNA L DREDGE MECHANIC Ot 433.10 04/07/2014 KITA, BOBAN N Ot 174.9 04/07/2014 NORA GRAY BLIND LACER Ot 454.9 04/07/2014 NORA GRAY BLIND LACER Ot 729.5 04/07/2014 KITA, BOBAN N Ot 174.9 04/07/2014 KITA, BOBAN N Ot 253.8 04/07/2014 KITA, BOBAN N Ot 437.1 04/07/2014 KITA, BOBAN N Ot 780.97 04/07/2014 JUNIOR HILAH S DREDGE MECHANIC Ot 174.9 04/07/2014 JUNIOR, HILAH S DREDGE MECHANIC Ot 174.9 04/07/2014 KITA, BOBAN N Ot 174.9 04/07/2014 KITA, BOBAN N Ot V58.81 04/13/2014 RON ARRIOLA DPM 250.02 DIABETES II UNCONTROLLED (UNCOMPLICATED) 04/13/2014 LEANDRO GONZALEZ MD 250.02 DIABETES II UNCONTROLLED (UNCOMPLICATED) 04/16/2014 KITA, BOBAN N Ot 174.9 04/16/2014 KITA, BOBAN N Ot V58.81 05/15/2014 CARLOS CHAMPION, LEANDRO 466.0 ACUTE BRONCHITIS 05/19/2014 BAIMA ARIANNA L DREDGE MECHANIC Ot 244.9 05/19/2014 BAIMA, ARIANNA L DREDGE MECHANIC Ot 272.0 05/19/2014 BAIMA, ARIANNA L DREDGE MECHANIC Ot 278.00 05/19/2014 BAIMA, ARIANNA L DREDGE MECHANIC Ot 401.9 05/19/2014 BAIMA, ARIANNA L DREDGE MECHANIC Ot 447.9 06/07/2014 [place] N Ot 174.9 MALIGN NEOPL BREAST NOS 06/07/2014 [place] [facility] Ot V58.81 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 06/22/2014 Ot 174.9 06/22/2014 Ot 174.9 06/22/2014 Ot V15.3 06/22/2014 Ot 174.9 06/22/2014 Ot 793.81 06/22/2014 Ot 174.9 06/22/2014 Ot 244.9 06/22/2014 Ot 250.02 06/22/2014 Ot 401.1 06/22/2014 Ot 174.9 06/22/2014 Ot 174.9 06/22/2014 Ot 174.9 06/22/2014 Ot V67.9 06/22/2014 Ot 250.00 06/22/2014 Ot 272.1 06/22/2014 Ot 401.1 06/22/2014 Ot 174.9 06/22/2014 Ot 780.4 06/22/2014 Ot 784.2 06/22/2014 Ot V15.88 06/22/2014 Ot 174.9 06/22/2014 Ot 793.81 06/22/2014 Ot 250.00 06/22/2014 Ot 272.4 06/22/2014 Ot 785.9 06/22/2014 Ot 786.05 06/22/2014 Ot 786.09 06/22/2014 Ot 786.50 06/22/2014 Ot V58.69 06/22/2014 Ot V72.63 06/22/2014 Ot V72.81 06/22/2014 Ot V72.83 06/22/2014 Ot 733.90 06/22/2014 Ot 174.9 06/22/2014 Ot 786.50 06/22/2014 Ot 272.4 06/22/2014 Ot 401.9 06/22/2014 Ot V58.69 06/22/2014 Ot 272.4 06/22/2014 Ot 401.9 06/22/2014 Ot V58.69 06/22/2014 Ot 174.9 06/22/2014 Ot 793.82 06/22/2014 Ot 272.4 06/22/2014 Ot V58.69 06/22/2014 Ot 174.9 06/22/2014 Ot 781.2 06/22/2014 Ot 272.4 06/22/2014 Ot 401.9 06/22/2014 Ot V58.69 06/22/2014 BAIMA ARIANNA L DREDGE MECHANIC Ot 272.4 06/22/2014 BAIMA ARIANNA L DREDGE MECHANIC Ot V58.69 06/22/2014 FATIMAH CHAMPION, KEYLA Bar Ot V72.84 06/22/2014 KITA, BOBAN N Ot 174.9 06/22/2014 KITA, BOBAN N Ot 728.87 06/22/2014 KITA, BOBAN N Ot V58.69 06/22/2014 KITA, BOBAN N Ot 174.9 06/22/2014 MK JUNIOR S DREDGE MECHANIC Ot 174.9 06/22/2014 JUNIOR, HILAH S DREDGE MECHANIC Ot V58.69 06/22/2014 SANDI HILAH S DREDGE MECHANIC Ot 733.90 06/22/2014 ARIANNA TURNER L DREDGE MECHANIC Ot 272.4 06/22/2014 BAIHEATHER ARIANNA L DREDGE MECHANIC Ot V58.69 06/22/2014 BAIHEATHER ARIANNA L DREDGE MECHANIC Ot 433.10 06/22/2014 KITA, BOBAN N Ot 174.9 06/22/2014 NORA GRAY BLIND LACER Ot 454.9 06/22/2014 NORA GRAY BLIND LACER Ot 729.5 06/22/2014 KITA, BOBAN N Ot 174.9 06/22/2014 KITA, BOBAN N Ot 253.8 06/22/2014 KITA, BOBAN N Ot 437.1 06/22/2014 KITA, BOBAN N Ot 780.97 06/22/2014 JUNIOR, HILAH S DREDGE MECHANIC Ot 174.9 06/22/2014 JUNIOR, HILAH S DREDGE MECHANIC Ot 174.9 06/22/2014 DARNELL TURNERHER L DREDGE MECHANIC Ot 244.9 06/22/2014 ARIANNA TURNER DREDGE MECHANIC Ot 272.0 06/22/2014 ARIANNA TURNER DREDGE MECHANIC Ot 278.00 06/22/2014 ARIANNA TURNER DREDGE MECHANIC Ot 401.9 06/22/2014 BAIARIANNA ROMERO DREDGE MECHANIC Ot 447.9 06/22/2014 [facility] N Ot 174.9 06/22/2014 KITAKEATON VARGAS N Ot V58.81 06/29/2014 KITAKEATON VARGAS N Ot 174.9 06/29/2014 KITAKEATON VARGAS N Ot V58.81 06/30/2014 [place] N Ot 174.9 06/30/2014 [place] N Ot V58.81 09/27/2014 [facility] N Ot 174.9 MALIGN NEOPL BREAST NOS 09/27/2014 [facility] N Ot V58.81 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 11/03/2014 Ot 174.9 11/03/2014 Ot 793.81 11/03/2014 Ot 174.9 11/03/2014 Ot 244.9 11/03/2014 Ot 250.02 11/03/2014 Ot 401.1 11/03/2014 Ot 174.9 11/03/2014 Ot 174.9 11/03/2014 Ot 174.9 11/03/2014 Ot V67.9 11/03/2014 Ot 250.00 11/03/2014 Ot 272.1 11/03/2014 Ot 401.1 11/03/2014 Ot 174.9 11/03/2014 Ot 780.4 11/03/2014 Ot 784.2 11/03/2014 Ot V15.88 11/03/2014 Ot 174.9 11/03/2014 Ot 793.81 11/03/2014 Ot 250.00 11/03/2014 Ot 272.4 11/03/2014 Ot 785.9 11/03/2014 Ot 786.05 11/03/2014 Ot 786.09 11/03/2014 Ot 786.50 11/03/2014 Ot V58.69 11/03/2014 Ot V72.63 11/03/2014 Ot V72.81 11/03/2014 Ot V72.83 11/03/2014 Ot 733.90 11/03/2014 Ot 174.9 11/03/2014 Ot 786.50 11/03/2014 Ot 272.4 11/03/2014 Ot 401.9 11/03/2014 Ot V58.69 11/03/2014 Ot 272.4 11/03/2014 Ot 401.9 11/03/2014 Ot V58.69 11/03/2014 Ot 174.9 11/03/2014 Ot 793.82 11/03/2014 Ot 272.4 11/03/2014 Ot V58.69 11/03/2014 Ot 174.9 11/03/2014 Ot 781.2 11/03/2014 Ot 272.4 11/03/2014 Ot 401.9 11/03/2014 Ot V58.69 11/03/2014 BAIARIANNA ROMERO L DREDGE MECHANIC Ot 272.4 11/03/2014 BAIARIANNA ROMERO L DREDGE MECHANIC Ot V58.69 11/03/2014 FATIMAH CHAMPION, KEYLA Bar Ot V72.84 11/03/2014 KITARYAN VARGASAN N Ot 174.9 11/03/2014 KITA, BOBAN N Ot 728.87 11/03/2014 KITA, BOBAN N Ot V58.69 11/03/2014 KITA, BOBAN N Ot 174.9 11/03/2014 MK JUNIOR S DREDGE MECHANIC Ot 174.9 11/03/2014 MK JUNIOR S DREDGE MECHANIC Ot V58.69 11/03/2014 MK JUNIOR S DREDGE MECHANIC Ot 733.90 11/03/2014 ARIANNA TURNER L DREDGE MECHANIC Ot 272.4 11/03/2014 BAIARIANNA ROMERO L DREDGE MECHANIC Ot V58.69 11/03/2014 BAIHEATHER ARIANNA L DREDGE MECHANIC Ot 433.10 11/03/2014 KITA, BOBAN N Ot 174.9 11/03/2014 NORA GRAY R BLIND LACER Ot 454.9 11/03/2014 NORA GRAY R BLIND LACER Ot 729.5 11/03/2014 KITA, BOBAN N Ot 174.9 11/03/2014 KITA, BOBAN N Ot 253.8 11/03/2014 KITA, BOBAN N Ot 437.1 11/03/2014 KITA, BOBAN N Ot 780.97 11/03/2014 MK JUNIOR S DREDGE MECHANIC Ot 174.9 11/03/2014 MK JUNIOR S DREDGE MECHANIC Ot 174.9 11/03/2014 ARIANNA TURNER DREDGE MECHANIC Ot 244.9 11/03/2014 ARIANNA TURNER DREDGE MECHANIC Ot 272.0 11/03/2014 ARIANNA TURNER DREDGE MECHANIC Ot 278.00 11/03/2014 ARIANNA TURNER DREDGE MECHANIC Ot 401.9 11/03/2014 ARIANNA TURNER DREDGE MECHANIC Ot 447.9 11/03/2014 [facility] N Ot 174.9 11/03/2014 KITA [place] N Ot V58.81 11/04/2014 KITA [place] N Ot 174.9 11/04/2014 KITA, [place] N Ot V58.81 11/18/2014 KITAKEATON N Ot 174.9 MALIGN NEOPL BREAST NOS 11/18/2014 [facility] N Ot V58.81 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 11/23/2014 [place] N Ot 174.9 11/23/2014 KITAKEATON VARGAS N Ot V58.81 12/24/2014 Ot C50.919 01/04/2015 Ot C50.919 01/07/2015 FATIMAH CHAMPION, KEYLA Bar Ot C50.919 01/07/2015 FATIMAH CHAMPION, KEYLA Bar Ot E11.9 01/07/2015 FATIMAH CHAMPION, KEYLA Bar Ot T82.898A 01/18/2015 [facility] N Ot 174.9 01/18/2015 [place] N Ot V58.81 01/19/2015 FATIMAH CHAMPION, KEYLA M Ot C50.919 01/19/2015 FATIMAH CHAMPION, KEYLA M Ot E11.9 01/19/2015 FATIMAH CHAMPION, KEYLA Bar Ot T82.898A 02/01/2015 FATIMAH CHAMPION, KEYLA Bar Ot C50.919 02/01/2015 FATIMAH CHAMPION, KEYLA Bar Ot E11.9 02/01/2015 FATIMAH CHAMPION, KEYLA Bar Ot T82.898A 02/28/2015 [facility] Ot C50.919 MALIGNANT NEOPLASM OF UNSP SITE OF UNSPE 02/28/2015 [facility] Ot Z23 ENCOUNTER FOR IMMUNIZATION 05/25/2015 Ot E78.0 05/25/2015 Ot I10 05/25/2015 Ot I65.23 06/11/2015 Ot E78.0 PURE HYPERCHOLESTEROLEMIA 06/11/2015 Ot I10 ESSENTIAL (PRIMARY) HYPERTENSION 06/11/2015 Ot I65.23 OCCLUSION AND STENOSIS OF BILATERAL MAY 06/23/2015 Ot E78.0 PURE HYPERCHOLESTEROLEMIA 06/23/2015 Ot I10 ESSENTIAL (PRIMARY) HYPERTENSION 06/23/2015 Ot I65.23 OCCLUSION AND STENOSIS OF BILATERAL MAY 06/24/2015 CALL DO MARC K Ot A41.9 SEPSIS, UNSPECIFIED ORGANISM 06/24/2015 CALL DO MARC K Ot E03.9 HYPOTHYROIDISM, UNSPECIFIED 06/24/2015 CALL DO, MARC K Ot E11.9 TYPE 2 DIABETES MELLITUS WITHOUT COMPLIC 06/24/2015 CALL DO MARC K Ot E78.5 HYPERLIPIDEMIA, UNSPECIFIED 06/24/2015 CALL DO MARC K Ot G62.9 POLYNEUROPATHY, UNSPECIFIED 06/24/2015 CALL DO MARC K Ot I10 ESSENTIAL (PRIMARY) HYPERTENSION 06/24/2015 CALL DO MARC K Ot K21.9 GASTRO-ESOPHAGEAL REFLUX DISEASE WITHOUT 06/24/2015 CALL DO MARC K Ot L03.113 CELLULITIS OF RIGHT UPPER LIMB 06/24/2015 ONEYDA LOJA MARC K Ot L03.312 CELLULITIS OF BACK [ANY PART EXCEPT BUTT 06/24/2015 ONEYDA LOJA MARC K Ot L03.313 CELLULITIS OF CHEST WALL 06/24/2015 MATTHIAS CALL DOA K Ot N39.0 URINARY TRACT INFECTION, SITE NOT SPECIF 06/24/2015 ONEYDA LOJA MARC K Ot Z85.3 PERSONAL HISTORY OF MALIGNANT NEOPLASM O 06/24/2015 MATTHIAS CALL DOA K Ot Z87.891 PERSONAL HISTORY OF NICOTINE DEPENDENCE 07/01/2015 [facility] Ot C50.919 MALIGNANT NEOPLASM OF UNSP SITE OF UNSPE 07/01/2015 [facility] Ot Z23 ENCOUNTER FOR IMMUNIZATION 07/01/2015 TASHA MEDEROS DREDGE MECHANIC Ot N61 INFLAMMATORY DISORDERS OF BREAST 07/02/2015 TASHA MEDEROS DREDGE MECHANIC Ot N61 INFLAMMATORY DISORDERS OF BREAST 07/02/2015 TASHA MEDEROS DREDGE MECHANIC Ot Z85.3 PERSONAL HISTORY OF MALIGNANT NEOPLASM O 07/09/2015 [facility] Ot C50.919 MALIGNANT NEOPLASM OF UNSP SITE OF UNSPE 07/09/2015 [facility] Ot Z23 ENCOUNTER FOR IMMUNIZATION 07/28/2015 TASHA MEDEROS DREDGE MECHANIC Ot N61 INFLAMMATORY DISORDERS OF BREAST 07/28/2015 TASHA MEDEROS DREDGE MECHANIC Ot Z85.3 PERSONAL HISTORY OF MALIGNANT NEOPLASM O 08/04/2015 TASHA MEDEROS DREDGE MECHANIC Ot N61 INFLAMMATORY DISORDERS OF BREAST 08/04/2015 TASHA MEDEROS DREDGE MECHANIC Ot Z85.3 PERSONAL HISTORY OF MALIGNANT NEOPLASM O 08/10/2015 TASHA MEDEROS DREDGE MECHANIC Ot N61 INFLAMMATORY DISORDERS OF BREAST 08/10/2015 TASHA MEDEROS DREDGE MECHANIC Ot N61 INFLAMMATORY DISORDERS OF BREAST 08/27/2015 TASHA MEDEROS DREDGE MECHANIC Ot N61 INFLAMMATORY DISORDERS OF BREAST 08/27/2015 TASHA MEDEROS DREDGE MECHANIC Ot L03.90 CELLULITIS, UNSPECIFIED 08/30/2015 TASHA MEDEROS DREDGE MECHANIC Ot L03.90 CELLULITIS, UNSPECIFIED 09/17/2015 TASHA MEDEROS DREDGE MECHANIC Ot N61 INFLAMMATORY DISORDERS OF BREAST 09/30/2015 TASHA MEDEROS DREDGE MECHANIC Ot L03.90 CELLULITIS, UNSPECIFIED 10/06/2015 KITA [place] W[place] Ot I89.0 LYMPHEDEMA, NOT ELSEWHERE CLASSIFIED 10/06/2015 KITAKEATON Ot M85.80 OTH DISRD OF BONE DENSITY AND STRUCTURE, 10/06/2015 [place] Ot Z08 ENCNTR FOR FOLLOW-UP EXAM AFTER TRTMT FO 10/06/2015 [facility] Ot Z85.3 PERSONAL HISTORY OF MALIGNANT NEOPLASM O 10/07/2015 KITAKE[place] Ot I89.0 LYMPHEDEMA, NOT ELSEWHERE CLASSIFIED 10/07/2015 KITA[place]ON Ot M85.80 OTH DISRD OF BONE DENSITY AND STRUCTURE, 10/07/2015 [facility] Ot Z08 ENCNTR FOR FOLLOW-UP EXAM AFTER TRTMT FO 10/07/2015 [place] Ot Z85.3 PERSONAL HISTORY OF MALIGNANT NEOPLASM O 10/15/2015 TASHA MEDEROS DREDGE MECHANIC Ot L03.90 CELLULITIS, UNSPECIFIED 11/29/2015 Ot 174.9 MALIGN NEOPL BREAST NOS 11/29/2015 Ot 780.4 DIZZINESS AND GIDDINESS 11/29/2015 Ot 784.2 SWELLING IN HEAD NECK 11/29/2015 Ot V15.88 HISTORY OF FALL 11/29/2015 Ot 174.9 MALIGN NEOPL BREAST NOS 11/29/2015 Ot 793.81 MAMMOGRAPHIC MICROCLACIFICATION 11/29/2015 Ot 250.00 DIAB SUGAR WO COMPL, TYPE II OR UNSPEC TY 11/29/2015 Ot 272.4 HYPERLIPIDEMIA NEC/NOS 11/29/2015 Ot 785.9 CARDIOVAS SYS SYMP NEC 11/29/2015 Ot 786.05 SHORTNESS OF BREATH 11/29/2015 Ot 786.09 RESPIRATORY ABNORM NEC 11/29/2015 Ot 786.50 CHEST PAIN NOS 11/29/2015 Ot V58.69 OTH MED,LT,CURRENT USE 11/29/2015 Ot V72.63 PRE-PROCEDURAL LABORATORY EXAMINATION 11/29/2015 Ot V72.81 [id number] CARDIOVASCULAR 11/29/2015 Ot V72.83 EXAM PRE-OPERATIVE NEC 11/29/2015 Ot 733.90 BONE CARTILAGE DIS NOS 11/29/2015 Ot 174.9 MALIGN NEOPL BREAST NOS 11/29/2015 Ot 786.50 CHEST PAIN NOS 11/29/2015 Ot 272.4 HYPERLIPIDEMIA NEC/NOS 11/29/2015 Ot 401.9 HYPERTENSION NOS 11/29/2015 Ot V58.69 OTH MED,LT,CURRENT USE 11/29/2015 Ot 272.4 HYPERLIPIDEMIA NEC/NOS 11/29/2015 Ot 401.9 HYPERTENSION NOS 11/29/2015 Ot V58.69 OTH MED,LT,CURRENT USE 11/29/2015 Ot 174.9 MALIGN NEOPL BREAST NOS 11/29/2015 Ot 793.82 INCONCLUSIVE MAMMOGRAM 11/29/2015 Ot 272.4 HYPERLIPIDEMIA NEC/NOS 11/29/2015 Ot V58.69 OTH MED,LT,CURRENT USE 11/29/2015 Ot 174.9 MALIGN NEOPL BREAST NOS 11/29/2015 Ot 781.2 ABNORMALITY OF GAIT 11/29/2015 Ot 272.4 HYPERLIPIDEMIA NEC/NOS 11/29/2015 Ot 401.9 HYPERTENSION NOS 11/29/2015 Ot V58.69 OTH MED,LT,CURRENT USE 11/29/2015 BAIMA, ARIANNA L DREDGE MECHANIC Ot 272.4 HYPERLIPIDEMIA NEC/NOS 11/29/2015 BAIMA, ARIANNA L DREDGE MECHANIC Ot V58.69 OTH MED,LT,CURRENT USE 11/29/2015 FATIMAH CHAMPION, KEYLA Bar Ot V72.84 EXAM PRE-OPERATIVE NOS 11/29/2015 [facility] N Ot 174.9 MALIGN NEOPL BREAST NOS 11/29/2015 [facility] N Ot 728.87 MUSCLE WEAKNESS (GENERALIZED) 11/29/2015 [facility] N Ot V58.69 OTH MED,LT,CURRENT USE 11/29/2015 [facility] N Ot 174.9 MALIGN NEOPL BREAST NOS 11/29/2015 JUNIOR, HILAH S DREDGE MECHANIC Ot 174.9 MALIGN NEOPL BREAST NOS 11/29/2015 JUNIOR HILAH S DREDGE MECHANIC Ot V58.69 OTH MED,LT,CURRENT USE 11/29/2015 JUNIOR HILAH S DREDGE MECHANIC Ot 733.90 BONE CARTILAGE DIS NOS 11/29/2015 YUE ARIANNA L DREDGE MECHANIC Ot 272.4 HYPERLIPIDEMIA NEC/NOS 11/29/2015 YUE ARIANNA L DREDGE MECHANIC Ot V58.69 OTH MED,LT,CURRENT USE 11/29/2015 BAIMA ARIANNA L DREDGE MECHANIC Ot 433.10 CAROTID ARTERY OCCLUSION W O CEREBRAL IN 11/29/2015 [facility] N Ot 174.9 MALIGN NEOPL BREAST NOS 11/29/2015 NORA GRAY BLIND LACER Ot 454.9 ASYMPTOMATIC VARICOSE VEINS 11/29/2015 NORA GRAY BLIND LACER Ot 729.5 PAIN IN LIMB 11/29/2015 [facility] N Ot 174.9 MALIGN NEOPL BREAST NOS 11/29/2015 [facility] N Ot 253.8 PITUITARY DISORDER NEC 11/29/2015 [facility] N Ot 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 11/29/2015 [facility] N Ot 780.97 ALTERED MENTAL STATUS 11/29/2015 JUNIOR HILAH S DREDGE MECHANIC Ot 174.9 MALIGN NEOPL BREAST NOS 11/29/2015 JUNIOR HILAH S DREDGE MECHANIC Ot 174.9 MALIGN NEOPL BREAST NOS 11/29/2015 BAIMA ARIANNA L DREDGE MECHANIC Ot 244.9 HYPOTHYROIDISM NOS 11/29/2015 JULIOMA ARIANNA L DREDGE MECHANIC Ot 272.0 PURE HYPERCHOLESTEROLEM 11/29/2015 BAIMA ARIANNA L DREDGE MECHANIC Ot 278.00 OBESITY, NOS 11/29/2015 BAIARIANNA ROMERO Elizabeth DREDGE MECHANIC Ot 401.9 HYPERTENSION NOS 11/29/2015 ARIANNA TURNER DREDGE MECHANIC Ot 447.9 ARTERIAL DISEASE NOS 11/29/2015 Ot C50.919 MALIGNANT NEOPLASM OF UNSP SITE OF UNSPE 11/29/2015 FATIMAH CHAMPION, KEYLA Bar Ot C50.919 MALIGNANT NEOPLASM OF UNSP SITE OF UNSPE 11/29/2015 FATIMAH CHAMPION, KEYLA Bar Ot E11.9 TYPE 2 DIABETES MELLITUS WITHOUT COMPLIC 11/29/2015 FATIMAH CHAMPION, KEYLA Bar Ot T82.898A OTH COMPLICATION OF VASCULAR PROSTH DEV/ 11/29/2015 FATIMAH CHAMPION, KEYLA Bar Ot C50.919 MALIGNANT NEOPLASM OF UNSP SITE OF UNSPE 11/29/2015 FATIMAH CHAMPION, KEYLA Bar Ot T82.898A OTH COMPLICATION OF VASCULAR PROSTH DEV/ 11/29/2015 FATIMAH CHAMPION, KEYLA Bar Ot Z01.818 ENCOUNTER FOR OTHER PREPROCEDURAL EXAMIN 11/29/2015 Ot E78.0 PURE HYPERCHOLESTEROLEMIA 11/29/2015 Ot I10 ESSENTIAL (PRIMARY) HYPERTENSION 11/29/2015 Ot I65.23 OCCLUSION AND STENOSIS OF BILATERAL MAY 11/29/2015 TASHA MEDEROS [facility] Ot N61 INFLAMMATORY DISORDERS OF BREAST 11/29/2015 TASHA MEDEROS [facility] Ot Z85.3 PERSONAL HISTORY OF MALIGNANT NEOPLASM O 11/29/2015 TASHA MEDEROS [facility] Ot N61 INFLAMMATORY DISORDERS OF BREAST 11/29/2015 TASHA MEDEROS [facility] Ot N61 INFLAMMATORY DISORDERS OF BREAST 11/29/2015 TASHA MEDEROS [facility] Ot L03.90 CELLULITIS, UNSPECIFIED 12/08/2015 Ot 174.9 MALIGN NEOPL BREAST NOS 12/08/2015 Ot 780.4 DIZZINESS AND GIDDINESS 12/08/2015 Ot 784.2 SWELLING IN HEAD NECK 12/08/2015 Ot V15.88 HISTORY OF FALL 12/08/2015 Ot 174.9 MALIGN NEOPL BREAST NOS 12/08/2015 Ot 793.81 MAMMOGRAPHIC MICROCLACIFICATION 12/08/2015 Ot 250.00 DIAB SUGAR WO COMPL, TYPE II OR UNSPEC TY 12/08/2015 Ot 272.4 HYPERLIPIDEMIA NEC/NOS 12/08/2015 Ot 785.9 CARDIOVAS SYS SYMP NEC 12/08/2015 Ot 786.05 SHORTNESS OF BREATH 12/08/2015 Ot 786.09 RESPIRATORY ABNORM NEC 12/08/2015 Ot 786.50 CHEST PAIN NOS 12/08/2015 Ot V58.69 OTH MED,LT,CURRENT USE 12/08/2015 Ot V72.63 PRE-PROCEDURAL LABORATORY EXAMINATION 12/08/2015 Ot V72.81 [id number] CARDIOVASCULAR 12/08/2015 Ot V72.83 EXAM PRE-OPERATIVE NEC 12/08/2015 Ot 733.90 BONE CARTILAGE DIS NOS 12/08/2015 Ot 174.9 MALIGN NEOPL BREAST NOS 12/08/2015 Ot 786.50 CHEST PAIN NOS 12/08/2015 Ot 272.4 HYPERLIPIDEMIA NEC/NOS 12/08/2015 Ot 401.9 HYPERTENSION NOS 12/08/2015 Ot V58.69 OTH MED,LT,CURRENT USE 12/08/2015 Ot 272.4 HYPERLIPIDEMIA NEC/NOS 12/08/2015 Ot 401.9 HYPERTENSION NOS 12/08/2015 Ot V58.69 OTH MED,LT,CURRENT USE 12/08/2015 Ot 174.9 MALIGN NEOPL BREAST NOS 12/08/2015 Ot 793.82 INCONCLUSIVE MAMMOGRAM 12/08/2015 Ot 272.4 HYPERLIPIDEMIA NEC/NOS 12/08/2015 Ot V58.69 OTH MED,LT,CURRENT USE 12/08/2015 Ot 174.9 MALIGN NEOPL BREAST NOS 12/08/2015 Ot 781.2 ABNORMALITY OF GAIT 12/08/2015 Ot 272.4 HYPERLIPIDEMIA NEC/NOS 12/08/2015 Ot 401.9 HYPERTENSION NOS 12/08/2015 Ot V58.69 OTH MED,LT,CURRENT USE 12/08/2015 BAIMA, ARIANNA L DREDGE MECHANIC Ot 272.4 HYPERLIPIDEMIA NEC/NOS 12/08/2015 BAIMA, ARIANNA L DREDGE MECHANIC Ot V58.69 OTH MED,LT,CURRENT USE 12/08/2015 FATIMAH CHAMPION, KEYLA Bar Ot V72.84 EXAM PRE-OPERATIVE NOS 12/08/2015 [facility] Ot 174.9 MALIGN NEOPL BREAST NOS 12/08/2015 [facility] Ot 728.87 MUSCLE WEAKNESS (GENERALIZED) 12/08/2015 [facility] Ot V58.69 OTH MED,LT,CURRENT USE 12/08/2015 KITA, BOBAN N Ot 174.9 MALIGN NEOPL BREAST NOS 12/08/2015 MK JUNIOR S DREDGE MECHANIC Ot 174.9 MALIGN NEOPL BREAST NOS 12/08/2015 MK JUNIOR S DREDGE MECHANIC Ot V58.69 OTH MED,LT,CURRENT USE 12/08/2015 MK JUNIOR S DREDGE MECHANIC Ot 733.90 BONE CARTILAGE DIS NOS 12/08/2015 BAIMA, ARIANNA L DREDGE MECHANIC Ot 272.4 HYPERLIPIDEMIA NEC/NOS 12/08/2015 BAIMA, ARIANNA L DREDGE MECHANIC Ot V58.69 OTH MED,LT,CURRENT USE 12/08/2015 BAIMA ARIANNA L DREDGE MECHANIC Ot 433.10 CAROTID ARTERY OCCLUSION W O CEREBRAL IN 12/08/2015 [facility] Ot 174.9 MALIGN NEOPL BREAST NOS 12/08/2015 NORA GRAY BLIND LACER Ot 454.9 ASYMPTOMATIC VARICOSE VEINS 12/08/2015 NORA GRAY BLIND LACER Ot 729.5 PAIN IN LIMB 12/08/2015 [facility] Ot 174.9 MALIGN NEOPL BREAST NOS 12/08/2015 [facility] Ot 253.8 PITUITARY DISORDER NEC 12/08/2015 [facility] Ot 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 12/08/2015 [facility] Ot 780.97 ALTERED MENTAL STATUS 12/08/2015 MK JUNIOR S DREDGE MECHANIC Ot 174.9 MALIGN NEOPL BREAST NOS 12/08/2015 MK JUNIOR S DREDGE MECHANIC Ot 174.9 MALIGN NEOPL BREAST NOS 12/08/2015 BAIMA ARIANNA L DREDGE MECHANIC Ot 244.9 HYPOTHYROIDISM NOS 12/08/2015 JULIOMA, ARIANNA L DREDGE MECHANIC Ot 272.0 PURE HYPERCHOLESTEROLEM 12/08/2015 BAIMA, ARIANNA L DREDGE MECHANIC Ot 278.00 OBESITY, NOS 12/08/2015 BAIMA, ARIANNA L DREDGE MECHANIC Ot 401.9 HYPERTENSION NOS 12/08/2015 BAIMA, ARIANNA L DREDGE MECHANIC Ot 447.9 ARTERIAL DISEASE NOS 12/08/2015 Ot C50.919 MALIGNANT NEOPLASM OF UNSP SITE OF UNSPE 12/08/2015 FATIMAH CHAMPION, KEYLA Bar Ot C50.919 MALIGNANT NEOPLASM OF UNSP SITE OF UNSPE 12/08/2015 FATIMAH CHAMPION, KEYLA Bar Ot E11.9 TYPE 2 DIABETES MELLITUS WITHOUT COMPLIC 12/08/2015 FATIMAH CHAMPION, KEYLA Bar Ot T82.898A OTH COMPLICATION OF VASCULAR PROSTH DEV/ 12/08/2015 FATIMAH CHAMPION, KEYLA Bar Ot C50.919 MALIGNANT NEOPLASM OF UNSP SITE OF UNSPE 12/08/2015 FATIMAH CHAMPION, KEYLA Bar Ot T82.898A OTH COMPLICATION OF VASCULAR PROSTH DEV/ 12/08/2015 FATIMAH CHAMPION, KEYLA Bar Ot Z01.818 ENCOUNTER FOR OTHER PREPROCEDURAL EXAMIN 12/08/2015 Ot E78.0 PURE HYPERCHOLESTEROLEMIA 12/08/2015 Ot I10 ESSENTIAL (PRIMARY) HYPERTENSION 12/08/2015 Ot I65.23 OCCLUSION AND STENOSIS OF BILATERAL MAY 12/08/2015 TASHA MEDEROS DREDGE MECHANIC Ot N61 INFLAMMATORY DISORDERS OF BREAST 12/08/2015 TASHA MEDEROS DREDGE MECHANIC Ot Z85.3 PERSONAL HISTORY OF MALIGNANT NEOPLASM O 12/08/2015 TASHA MEDEROS DREDGE MECHANIC Ot N61 INFLAMMATORY DISORDERS OF BREAST 12/08/2015 TASHA MEDEROS DREDGE MECHANIC Ot N61 INFLAMMATORY DISORDERS OF BREAST 12/08/2015 TASHA MEDEROS DREDGE MECHANIC Ot L03.90 CELLULITIS, UNSPECIFIED 12/08/2015 [facility] Ot I89.0 LYMPHEDEMA, NOT ELSEWHERE CLASSIFIED 12/08/2015 [facility] Ot M85.80 OTH DISRD OF BONE DENSITY AND STRUCTURE, 12/08/2015 [facility] Ot Z08 ENCNTR FOR FOLLOW-UP EXAM AFTER TRTMT FO 12/08/2015 [facility] Ot Z85.3 PERSONAL HISTORY OF MALIGNANT NEOPLASM O 12/08/2015 TASHA MEDEROS DREDGE MECHANIC Ot I83.222 VARICOS VN OF L LOW EXTREM W ULC OF CALF 12/08/2015 TASHA MEDEROS DREDGE MECHANIC Ot I83.92 ASYMPTOMATIC VARICOSE VEINS OF LEFT LOWE 12/09/2015 TASHA MEDEROS DREDGE MECHANIC Ot I83.222 VARICOS VN OF L LOW EXTREM W ULC OF CALF 12/09/2015 TASHA MEDEROS DREDGE MECHANIC Ot I83.92 ASYMPTOMATIC VARICOSE VEINS OF LEFT LOWE 12/09/2015 TASHA MEDEROS DREDGE MECHANIC Ot I83.222 VARICOS VN OF L LOW EXTREM W ULC OF CALF 12/09/2015 TASHA MEDEROS Macey DREDGE MECHANIC Ot I83.92 ASYMPTOMATIC VARICOSE VEINS OF LEFT LOWE 12/16/2015 MK JUNIOR Naresh DREDGE MECHANIC Ot C50.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 12/16/2015 MK JUNIOR S DREDGE MECHANIC Ot M85.9 DISORDER OF BONE DENSITY AND STRUCTURE, 12/16/2015 MK JUNIOR DREDGE MECHANIC Ot C50.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 12/16/2015 JUNIORMK Infante S DREDGE MECHANIC Ot M85.9 DISORDER OF BONE DENSITY AND STRUCTURE, 12/17/2015 JUNIORMK Infante S DREDGE MECHANIC Ot C50.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 12/17/2015 JUNIORMK Infante S DREDGE MECHANIC Ot M85.9 DISORDER OF BONE DENSITY AND STRUCTURE, 12/28/2015 MK JUNIOR DREDGE MECHANIC Ot C50.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 12/28/2015 JUNIORMK Infante S DREDGE MECHANIC Ot M85.9 DISORDER OF BONE DENSITY AND STRUCTURE, 12/30/2015 DAHLIA MEDEROSANGE Choudhury DREDGE MECHANIC Ot I83.222 VARICOS VN OF L LOW EXTREM W ULC OF CALF 12/30/2015 DAHLIA MEDEROSANGE Choudhury DREDGE MECHANIC Ot I83.92 ASYMPTOMATIC VARICOSE VEINS OF LEFT LOWE 01/06/2016 ALEJANDRA MEDEROSCitlalli Choudhury DREDGE MECHANIC Ot I83.222 VARICOS VN OF L LOW EXTREM W ULC OF CALF 01/06/2016 DAHLIA MEDEROSANGE Choudhury DREDGE MECHANIC Ot I83.92 ASYMPTOMATIC VARICOSE VEINS OF LEFT LOWE 02/17/2016 MK JUNIOR DREDGE MECHANIC Ot C50.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 02/17/2016 JUNIORMK Infante S DREDGE MECHANIC Ot M85.9 DISORDER OF BONE DENSITY AND STRUCTURE, 03/05/2016 [facility] Ot I89.0 LYMPHEDEMA, NOT ELSEWHERE CLASSIFIED 03/05/2016 [facility] Ot M85.80 OTH DISRD OF BONE DENSITY AND STRUCTURE, 03/05/2016 [facility] Ot Z08 ENCNTR FOR FOLLOW-UP EXAM AFTER TRTMT FO 03/05/2016 [facility] Ot Z85.3 PERSONAL HISTORY OF MALIGNANT NEOPLASM O 05/26/2016 BAIMA, ARIANNA L DREDGE MECHANIC Ot E78.4 OTHER HYPERLIPIDEMIA 05/26/2016 BAIMA, ARIANNA L DREDGE MECHANIC Ot I07.1 RHEUMATIC TRICUSPID INSUFFICIENCY 05/26/2016 BAIMA, ARIANNA L DREDGE MECHANIC Ot I10 ESSENTIAL (PRIMARY) HYPERTENSION 05/26/2016 BAIMA, ARIANNA L DREDGE MECHANIC Ot I34.0 NONRHEUMATIC MITRAL (VALVE) INSUFFICIENC 05/26/2016 BAIMA, ARIANNA L DREDGE MECHANIC Ot I65.23 OCCLUSION AND STENOSIS OF BILATERAL MAY 05/26/2016 BAIMA, ARIANNA L DREDGE MECHANIC Ot E78.4 OTHER HYPERLIPIDEMIA 05/26/2016 BAIMA, ARIANNA L DREDGE MECHANIC Ot I07.1 RHEUMATIC TRICUSPID INSUFFICIENCY 05/26/2016 BAIMA, ARIANNA L DREDGE MECHANIC Ot I10 ESSENTIAL (PRIMARY) HYPERTENSION 05/26/2016 BAIMA, ARIANNA L DREDGE MECHANIC Ot I34.0 NONRHEUMATIC MITRAL (VALVE) INSUFFICIENC 05/26/2016 BAIMA, ARIANNA L DREDGE MECHANIC Ot I65.23 OCCLUSION AND STENOSIS OF BILATERAL MAY 06/23/2016 BAIMA, ARIANNA L DREDGE MECHANIC Ot E78.4 OTHER HYPERLIPIDEMIA 06/23/2016 BAIMA, ARIANNA L DREDGE MECHANIC Ot I07.1 RHEUMATIC TRICUSPID INSUFFICIENCY 06/23/2016 BAIMA, ARIANNA L DREDGE MECHANIC Ot I10 ESSENTIAL (PRIMARY) HYPERTENSION 06/23/2016 BAIMA, ARIANNA L DREDGE MECHANIC Ot I34.0 NONRHEUMATIC MITRAL (VALVE) INSUFFICIENC 06/23/2016 BAIMA, ARIANNA L DREDGE MECHANIC Ot I65.23 OCCLUSION AND STENOSIS OF BILATERAL MAY 06/26/2016 [facility] Ot I89.0 LYMPHEDEMA, NOT ELSEWHERE CLASSIFIED 06/26/2016 [facility] Ot M85.80 OTH DISRD OF BONE DENSITY AND STRUCTURE, 06/26/2016 [facility] Ot Z08 ENCNTR FOR FOLLOW-UP EXAM AFTER TRTMT FO 06/26/2016 [facility] Ot Z85.3 PERSONAL HISTORY OF MALIGNANT NEOPLASM O 06/30/2016 BAIMA, ARIANNA L DREDGE MECHANIC Ot E78.4 OTHER HYPERLIPIDEMIA 06/30/2016 BAIMA, ARIANNA L DREDGE MECHANIC Ot I07.1 RHEUMATIC TRICUSPID INSUFFICIENCY 06/30/2016 ARIANNA TURNER DREDGE MECHANIC Ot I10 ESSENTIAL (PRIMARY) HYPERTENSION 06/30/2016 ARIANNA TURNER DREDGE MECHANIC Ot I34.0 NONRHEUMATIC MITRAL (VALVE) INSUFFICIENC 06/30/2016 ARIANNA TURNER DREDGE MECHANIC Ot I65.23 OCCLUSION AND STENOSIS OF BILATERAL MAY 08/04/2016 MK JUNIOR DREDGE MECHANIC Ot Z12.31 ENCNTR SCREEN MAMMOGRAM FOR MALIGNANT NE 08/08/2016 KEYLA SHERIDAN MD Ot E03.9 HYPOTHYROIDISM, UNSPECIFIED 08/08/2016 KEYLA SHERIDAN MD Ot E11.9 TYPE 2 DIABETES MELLITUS WITHOUT COMPLIC 08/08/2016 KEYLA SHERIDAN MD Ot E78.5 HYPERLIPIDEMIA, UNSPECIFIED 08/08/2016 KEYLA SHERIDAN MD Ot F32.9 MAJOR DEPRESSIVE DISORDER, SINGLE EPISOD 08/08/2016 KEYLA SHERIDAN MD Ot I10 ESSENTIAL (PRIMARY) HYPERTENSION 08/08/2016 KEYLA SHERIDAN MD Ot K21.9 GASTRO-ESOPHAGEAL REFLUX DISEASE WITHOUT 08/08/2016 KEYLA SHERIDAN MD Ot K57.32 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 PERFORATION OR ABS 08/08/2016 KEYLA SHERIDAN MD Ot M19.90 UNSPECIFIED OSTEOARTHRITIS, UNSPECIFIED 08/08/2016 KEYLA SHERIDAN MD Ot Z12.11 ENCOUNTER FOR SCREENING FOR MALIGNANT NE 08/08/2016 KEYLA SHERIDAN MD Ot E03.9 HYPOTHYROIDISM, UNSPECIFIED 08/08/2016 KEYLA SHERIDAN MD Ot E11.9 TYPE 2 DIABETES MELLITUS WITHOUT COMPLIC 08/08/2016 KEYLA SHERIDAN MD Ot E78.5 HYPERLIPIDEMIA, UNSPECIFIED 08/08/2016 KEYLA SHERIDAN MD Ot F32.9 MAJOR DEPRESSIVE DISORDER, SINGLE EPISOD 08/08/2016 KEYLA SHERIDAN MD Ot I10 ESSENTIAL (PRIMARY) HYPERTENSION 08/08/2016 KEYLA SHERIDAN MD Ot K21.9 GASTRO-ESOPHAGEAL REFLUX DISEASE WITHOUT 08/08/2016 KEYLA SHERIDAN MD Ot K57.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 08/08/2016 KEYLA SHERIDAN MD Ot M19.90 UNSPECIFIED OSTEOARTHRITIS, UNSPECIFIED 08/08/2016 KEYLA SHERIDAN MD Ot Z12.11 ENCOUNTER FOR SCREENING FOR MALIGNANT NE 08/09/2016 KEYLA SHERIDAN MD Ot Z01.818 ENCOUNTER FOR OTHER PREPROCEDURAL EXAMIN 08/09/2016 KEYLA SHERIDAN MD Ot Z12.11 ENCOUNTER FOR SCREENING FOR MALIGNANT NE Procedures Code Description [place] [address] ROUTINE VENIPUNCTURE 12/04/2011 27462 A1C (IN-HOUSE) 25889 TSH 12/05/2011 26055 A1C (IN-HOUSE) 92338 ROUTINE VENIPUNCTURE 03/25/2012 78652 MICRO ALBUMIN-IN HOUSE 03/25/2012 65743 CMP 03/25/2012 52989 LIPID PANEL 03/25 [id number] GFR CALC (RESULT ONLY) 03/25/2012 73391 TSH 03/25/2012 36750 CULTURE WOUND (AEROBIC) 04/24/2012 Orthoped[facility] M[facility] 04/25/2012 09497 I/D SIMPLE ABSCESS 04/26/2012 63701 A1C (IN-HOUSE) 52106 DEBRIDE NAIL 1-5 07/05/2012 69157 DEBRIDE NAIL 1-5 08/02/2012 80699 DEBRIDE NAIL 1-5 11/08/2012 G0008 FLU ADMINISTRATION (MEDICARE ONLY) 11/08/2012 74655 A1C (IN-HOUSE) 65553 MICRO ALBUMIN-IN HOUSE 12/25/2012 18831 ROUTINE VENIPUNCTURE 12/26/2012 65573 TSH 12/26/2012 [id number] GFR CALC (RESULT ONLY) 12/26/2012 73030 CMP 12/26/2012 42085 LIPID PANEL 12/26 75275 CBC 01/08/2013 71940 CMP 01/08/2013 72109 DEBRIDE NAIL 1-5 01/24/2013 00691 CMP 02/18/2013 74021 LIPID PANEL 02/18 37815 DEBRIDE NAIL 1-5 05/09/2013 45382 CMP 06/30/2013 37834 CBC 06/30/2013 78149 ROUTINE VENIPUNCTURE 08/04/2013 33032 A1C (IN-HOUSE) 90456 MICRO ALBUMIN-IN HOUSE 08/04/2013 1733527 GFR CALC (RESULT ONLY) 08/04/2013 41913 CMP 08/04/2013 62572 MAGNESIUM 2013 91348 TSH 08/04/2013 77627 DEBRIDE NAIL 1-5 08/08/2013 89426 US VENOUS DOPPLER (DVT EVAL) 08/14/2013 79038 DEBRIDE NAIL 1-5 11/07/2013 72478 A1C (IN-HOUSE) G0008 FLU ADMINISTRATION (MEDICARE ONLY) 11/18/2013 57259 UA W/ CULTURE IF INDICATED 12/17/2013 [id number] CULTURE URINE [id number] UA W/ CULTURE IF INDICATED 12/22/2013 [id number] EAR LAVAGE 2013 [id number] DEBRIDE NAIL 1-5 01/23/2014 Results Encounters ACCT No. Visit Date/Time Discharge Status Pt. Type Provider Facility Loc./Unit Complaint [id number] 05/15/2014 09:17:00 05/15/2014 23: 59:59 CLS Outpatient LEANDRO GONZALEZ MD [id number] 05/08/2014 10:21:00 05/08/2014 23: 59:59 CLS Outpatient RON ARRIOLA DPM [id number] 02/06/2014 09:18:00 02/06/2014 23: 59:59 CLS Outpatient NORA GRAY APRN [id number] 01/23/2014 10:12:00 01/23/2014 23: 59:59 CLS Outpatient RON ARRIOLA DPM [id number] 01/23/2014 10:12:00 01/23/2014 23: 59:59 CLS Outpatient MARC CALL DO [id number] 12/22/2013 10:13:00 12/22/2013 23: 59:59 CLS Outpatient MELVIN FISCHER APRN [id number] 12/17/2013 10:48:00 12/17/2013 23: 59:59 CLS Outpatient NORA GRAY APRN [id number] 11/18/2013 10:29:00 11/18/2013 23: 59:59 CLS Outpatient NORA GRAY APRN [id number] 11/18/2013 10:29:00 11/18/2013 23: 59:59 CLS Outpatient NORA GRAY APRN [id number] 11/07/2013 09:35:00 11/07/2013 23: 59:59 CLS Outpatient RON ARRIOLA DPM [id number] 08/13/2013 10:46:00 08/13/2013 23: 59:59 CLS Outpatient ISAAC BLIND LACERNORA [id number] 08/08/2013 08:29:00 08/08/2013 23: 59:59 CLS Outpatient CALL DO MARC Riddle [id number] 08/08/2013 08:29:00 08/08/2013 23: 59:59 CLS Outpatient CALL DO MARC Riddle [id number] 08/04/2013 09:40:00 08/04/2013 23: 59:59 CLS Outpatient CALL DO, MARC Riddle [id number] 08/04/2013 09:40:00 08/04/2013 23: 59:59 CLS Outpatient CALL DO, MARC Riddle [id number] 06/13/2013 08:51:00 06/13/2013 23: 59:59 CLS Outpatient WHITE DDS, LIZBETH Devries [id number] 05/09/2013 08:41:00 05/09/2013 23: 59:59 CLS Outpatient CALL DO MARC Riddle [id number] 05/09/2013 08:41:00 05/09/2013 23: 59:59 CLS Outpatient CALL DO, MARC Riddle [id number] 04/14/2013 13:09:00 04/14/2013 23: 59:59 CLS Outpatient WHITE DDS, CARMEN Camejo [id number] 02/28/2013 09:52:00 02/28/2013 23: 59:59 CLS Outpatient WHITE DDS, CARMEN Camejo [id number] 01/24/2013 07:46:00 01/24/2013 23: 59:59 CLS Outpatient CALL DO MARC Riddle [id number] 01/24/2013 07:46:00 01/24/2013 23: 59:59 CLS Outpatient CALL DO, MARC Riddle [id number] 12/26/2012 10:57:00 12/26/2012 23: 59:59 CLS Outpatient CALL DO, MARC Riddle [id number] 12/25/2012 07:43:00 12/25/2012 23: 59:59 CLS Outpatient CALL DO, MARC Riddle [id number] 12/25/2012 07:43:00 12/25/2012 23: 59:59 CLS Outpatient CALL DO, MARC Riddle [id number] 11/08/2012 08:50:00 11/08/2012 23: 59:59 CLS Outpatient CALL DO, MARC Riddle [id number] 11/08/2012 07:47:00 11/08/2012 23: 59:59 CLS Outpatient CALL DOMARC [id number] 05/04/2012 12:28:00 05/04/2012 23: 59:59 CLS Outpatient VARUN HARRISON APRN [id number] 05/02/2012 09:19:00 05/02/2012 23: 59:59 CLS Outpatient [id number] 04/30/2012 10:39:00 04/30/2012 23: 59:59 CLS Outpatient [id number] 04/27/2012 09:24:00 04/27/2012 23: 59:59 CLS Outpatient [id number] 04/26/2012 09:16:00 04/26/2012 23: 59:59 CLS Outpatient CALL DOMARC [id number] 04/25/2012 15:27:00 04/25/2012 23: 59:59 CLS Outpatient [id number] 04/23/2012 10:37:00 04/23/2012 23: 59:59 CLS Outpatient [id number] 03/26/2012 10:02:00 03/26/2012 23: 59:59 CLS Outpatient [id number] 03/25/2012 09:15:00 03/25/2012 23: 59:59 CLS Outpatient CALL DOMARC [id number] 03/18/2012 11:10:00 03/18/2012 23: 59:59 CLS Outpatient CALL DO, MARC Riddle [id number] 03/18/2012 11:10:00 03/18/2012 23: 59:59 CLS Outpatient CALL DOMARC [id number] 01/26/2012 09:10:00 01/26/2012 23: 59:59 CLS Outpatient CALL DO, MARC Riddle [id number] 12/04/2011 09:34:00 12/04/2011 23:59 :59 CLS Outpatient CALL DO, MARC K [id number] 10/07/2012 10:47:00 Document Registration [id number] 08/02/2012 10:27:00 Document Registration [id number] 07/03/2012 08:49:00 Document Registration [id number] 07/03/2012 08:49:00 Document Registration [id number] 04/26/2012 09:16:00 Document Registration
== END 2016-08-11 18:50 | disposition home or self-care (01) ==
LOC: EDUNIT# 15:38 → ER 15:40
DX: S16.1XXA Strain of muscle, fascia and tendon at neck level, initial encounter (principal); S00.12XA Contusion of left eyelid and periocular area, initial encounter; S40.012A Contusion of left shoulder, initial encounter; S09.90XA Unspecified injury of head, initial encounter; S00.81XA Abrasion of other part of head, initial encounter; E11.9 Type 2 diabetes mellitus without complications; E03.9 Hypothyroidism, unspecified; I10 Essential (primary) hypertension; Z23 Encounter for immunization; Z85.3 Personal history of malignant neoplasm of breast; Z98.890 Other specified postprocedural states; Z87.891 Personal history of nicotine dependence; Z79.82 Long term (current) use of aspirin; Z87.39 Personal history of other diseases of the musculoskeletal system and connective tissue; Y92.838 Other recreation area as the place of occurrence of the external cause; W01.198A Fall on same level from slipping, tripping and stumbling with subsequent striking against other object, initial encounter
CPT/HCPCS: 70450; 70486; 72125; 73030; 90715; 99282

== ENCOUNTER 2016-08-31 06:43 | Outpatient (CLI) | payer MEDICARE, MEDICAID ==
[~2016-08-31] VITALS: Ht 157.5 cm; Wt 75.7 kg
== END 2016-08-31 14:26 ==
LOC: PREOP 06:43
PROVIDERS: ATTEND Surgery
DX: Z01.818 Encounter for other preprocedural examination (principal); K57.30 Diverticulosis of large intestine without perforation or abscess without bleeding

== ENCOUNTER 2016-09-04 06:59 | Day surgery (SDC) | payer MEDICARE, MEDICAID ==
[~2016-09-04] VITALS: Ht 157.5 cm; Wt 75.7 kg
[~2016-09-04 06:59] MED LIST changes: -LIRA0.6P3 SC; +LIRA0.6P3 SQ
[2016-09-04] MEDS ORDERED: NS IV 500 ML 500 ML IV PRN (07:10)
[2016-09-04] MEDS ORDERED: NS IV 500 ML 500 ML ONE (07:30)
[2016-09-04 07:44] VITALS: BP 144/84
[2016-09-04] MEDS ORDERED: fentaNYL INJECTION 100 MCG/2 ML AMP ONE ×2 (08:12→08:13)
[2016-09-04] MEDS ORDERED: MIDAZOLAM 2 MG/2 ML (VERSED) VIAL ONE ×4 (08:13)
--- NOTE | 2016-09-04 08:13 | Conscious Sedation/ASA ---
Conscious Sedation Pre-Proced Time Reviewed: 08:13 ASA Class: 2 Airway Mallampati Classification: ([place] appropriate class) I. II. III, IV Lungs Heart ASA score ASA 1: a normal healthy patient ASA 2: a patient with a mild systemic disease (mid diabetes, controlled hypertension, obesity ASA 3: a patient with a severe systemic disease that limits activity (angina , COPD, prior Myocardial infarction) ASA 4: a patient with an incapacitating disease that is a constant threat to life (CHF, renal failure) ASA 5: a moribund patient not expected to survive 24 hrs. (ruptured aneurysm) ASA 6: a declared brain patient whose organs are being harvested. For emergent operations, add the letter E after the classification Grade 1 Sedation Plan: Discussed options with patient/fam Note The patient is an appropriate candidate to undergo the planned procedure, sedation, and anesthesia. The patient immediately re-assessed prior to indication. KEYLA SHERIDAN MD Sep 04, 2016 8:13 am
--- NOTE | 2016-09-04 08:13 | History & Physicial ---
History of Present Illness History of Present Illness Reason for visit/HPI to undergo colonoscopy using a pediatric colonoscope. Previous examination and complete with CT scan giving an impression of a polyp in the cecum. Date of Admission Date Seen by Provider: Sep 04, 2016 Time Seen by Provider: 08:10 I consulted on this patient on 09/04/16 08:10 Attending Physician Keyla Sheridan MD Admitting Physician Tania Wong DO Consult Allergies and Home Medications Allergies Coded Allergies: latex (Verified Allergy, Unknown, 08/31/16) Home Medications Aspirin 81 Mg Tablet.dr, 81 MG PO DAILY, (Reported) Atorvastatin Calcium 40 Mg Tablet, 40 MG PO HS, (Reported) Calcium/Vitamin D 600 Mg Tab, 600 MG PO DAILY, (Reported) Cholecalciferol (Vitamin D3) 2,000 Unit Tablet, 2,000 UNIT PO DAILY, (Reported) Dicyclomine HCl 10 Mg Capsule, 10 MG PO QID, (Reported) Ezetimibe 10 Mg Tablet, 10 MG PO DAILY, (Reported) Gabapentin 300 Mg Capsule, 300 MG PO TID, (Reported) Glipizide 10 Mg Tablet, 10 MG PO BID, (Reported) Ibuprofen 800 Mg Tablet, 800 MG PO TID, (Reported) Levothyroxine Sodium 125 Mcg Tablet, 125 MCG PO DAILY, (Reported) Liraglutide 0.6 Mg/0.1 Ml Pen.injctr, 1.8 MG SC HS, (Reported) Magnesium Oxide 400 Mg Tablet, 400 MG PO BID, (Reported) Metformin HCl 500 Mg Tablet, 1,000 MG PO BID, (Reported) TAKES 2 (500MG) TABLETS Mirabegron 50 Mg Tab.er.24h, 50 MG PO 1200, (Reported) Montelukast Sodium 10 Mg Tablet, 10 MG PO HS, (Reported) Hope-3 Fatty Acids/Fish Oil 1 Each Capsule, 1,000 MG PO TID, (Reported) Omeprazole 20 Mg Capsule.dr, 20 MG PO BID, (Reported) Oxybutynin Chloride 15 Mg Tab.er.24, 15 MG PO DAILY, (Reported) Sertraline HCl 25 Mg Tablet, 25 MG PO HS, (Reported) Tramadol HCl 50 Mg Tablet, 50 MG PO Q4H, #15 Prescribed by: JES PEREZ on 08/11/16 0106 Past Wrkktxx-Lvyesg-Sgemvo Hx Patient Social History Employed/Student: unemployed Alcohol Use: Denies Use Recreational Drug Use: No Smoking Status: Former Smoker Former smoker/When Quit: Dec 25, 2006 Type Used: Cigarettes 2nd Hand Smoke Exposure: No Recent Foreign Travel: No Contact w/other who traveled: No Recent Hopitalizations: No Recent Infectious Disease Expo: No Immunizations Up To Date Tetanus Booster (TDap): Unknown Date of Pneumonia Vaccine: Jan 26, 2012 Date of Influenza Vaccine: Nov 19, 2014 Seasonal Allergies Seasonal Allergies: Yes Surgeries HX Surgeries: Yes Surgeries: Angioplasty, Breast, Eye Surgery, Gallbladder, 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, Orthopedic, Renal, Thyroidectomy Respiratory Hx Respiratory Disorders: No Cardiovascular Hx Cardiovascular Disorders: Yes (heart cath august 2010; CAROTID DISEASE) Cardiac Disorders: High Cholesterol, Hypertension, Peripheral Vascular Neurological Hx Neurological Disorders: Yes Neurological Disorders: Neuropathy Reproductive System Hx Reproductive Disorders: No Sexually Transmitted Disease: No HIV/AIDS: No Female Reproductive Disorders: Denies Genitourinary Hx Genitourinary Disorders: Yes (INCONTINENCE) Genitourinary Disorders: Kidney Stones Gastrointestinal Hx Gastrointestinal Disorders: Yes Gastrointestinal Disorders: Gastroesophageal Reflux, Polyps, Irritable Bowel Musculoskeletal Hx Musculoskeletal Disorders: Yes (LYMPHEDEMA OF RIGHT ARM) Musculoskeletal Disorders: Degenerate Disk Disease, Arthritis, Chronic Back Pain Endocrine Hx Endocrine Disorders: Yes ( S/P THYROIDECTOMY) Endocrine Disorders: Hypothyroidsim, Diabetes, Non-Insulin dep HEENT HX ENT Disorders: Yes (RETINITIS PIGMENTOSA) HEENT Disorders: Cataract Loss of Vision: Left Hearing Impairment: Denies Cancer Hx Cancer: Yes (S/P RIGHT LUMPECTOMY & LYMPH NODE DISSECTION 2008) Cancer: Breast Psychosocial Hx Psychiatric Problems: Yes Behavioral Health Disorders: Sleep Difficulties, Anxiety, Depression Integumentary HX Skin/Integumentary Disorder: Yes (hx of CELLULITIS OF BREAST/CHEST WALL; ) Skin/Integumentary Disorders: Herpes Blood Transfusions Hx Blood Disorders: No Adverse Reaction to a Blood Tr: No Family Medical History Family Hx: Patient reports no known family medical history. Constitutional: no symptoms reported EENTM: no symptoms reported Respiratory: no symptoms reported Gastrointestinal: abdominal pain (LLQ) Genitourinary: no symptoms reported Musculoskeletal: joint pain Skin: no symptoms reported Psychiatric/Neurological: Anxiety Physical Exam Vital Signs Vital Sign - Last 12Hours 09/04/16 07:44 Temp 98.8 Pulse 83 Resp 18 B/P (MAP) 144/84 Pulse Ox 94 Capillary Refill : General Appearance: Anxious HEENT: Normal ENT Inspection Neck: Normal Inspection Respiratory: Lungs Clear Cardiovascular: Regular Rate, Rhythm Gastrointestinal: Non Tender, Soft Rectal: Deferred Extremity: Normal Inspection Neurologic/Psychiatric: Alert, Oriented x3 Skin: Warm/Dry Assessment/Plan Assessment and Plan lady with sigmoid diverticulosis. Tortuous colon. Possible filling defect in the cecum on a CT scan. For colonoscopy using a pediatric scope. Problems: KEYLA SHERIDAN MD Sep 04, 2016 8:12 am
[2016-09-04] MEDS: fentaNYL INJECTION 100 MCG/2 ML AMP IVP PRN ×2 (08:38→08:40)
[2016-09-04] MEDS: MIDAZOLAM 2 MG/2 ML (VERSED) VIAL IVP PRN ×3 (08:39→08:45)
--- NOTE | 2016-09-04 09:09 | Endo Procedure Record ---
Endo Procedure Report Date of Procedure Sep 04, 2016 Surgeon (s) KEYLA SHERIDAN MD Post Procedure/Op Diagnosis 1.sigmoid diverticulosis 2. 5 mm sessile lesion at the cecum, proximal to the ileocecal valve Procedure Performed 1.colonoscopy to cecum 2. Biopsy of sessile lesion at cecum 3. Tattooing of lesion Description of Procedure Anesthesia Type: Conscious Sedation Specimen(s) collected/removed sessile lesion at cecum Description of the Procedure Indication for procedure: this lady underwent an attempt at screening colonoscopy that 4 weeks ago. Due to tortuosity of the sigmoid colon a complete examination could not be performed that day. A CT scan with rectal contrast and ruled out any sigmoid stricture.. However, there was a persistent filling defect at the cecum, having the appearance of a sessile polyp. Therefore, she was brought back in for consideration of repeating the colonoscopy using a pediatric scope. Informed consent was obtained after reviewing the procedure. Description of the procedure: She was placed in left lateral rectus position and her vital signs were monitored. Conscious sedation was achieved using Versed and fentanyl. Digital rectal examination was unremarkable. The colonoscope was then introduced in the rectum and advanced to the cecum. The quality of bowel preparation was reasonable. The scope was then withdrawn slowly and the mucosa examined in a systematic fashion. Findings: 1.sigmoid diverticulosis without any stricture 2. A 5 mm sessile lesion, just proximal to the ileocecal valve, having the appearance of a villous adenoma. Photodocumentation and biopsies were obtained. The area was tattooed with Sarika ink for identification, should resection be required. She tolerated the procedure well and was taken back to the nursing area in a stable condition Impression : Screening colonoscopy. Sessile lesion at the cecum. We will base follow-up in the office to plan management. Copies To: MARC CALL XAVIER M MD Sep 04, 2016 9:09 am
--- NOTE | 2016-09-04 09:11 | Discharge Inst-Simple/Standard ---
Discharge Inst-Standard Discharge Medications New, Converted or Re-Newed RX: Other Patient Instructions/Follow Up Plan of Care/Instructions/FU: follow-up with me in the office this at 130 p.m. Activity as Tolerated: Yes Discharge Diet: ADA Diet KEYLA SHERIDAN MD Sep 04, 2016 9:11 am
[2016-09-04 09:15] VITALS: BP 152/82
[2016-09-04 09:50] VITALS: BP 131/70
[2016-09-04 10:05] VITALS: BP 131/70
[2016-09-22] MEDS ORDERED: HYDR-3820 PO (15:02)
[2016-10-04] MEDS ORDERED: ALBU2.5V4 IH (10:55)
[2016-10-04] MEDS ORDERED: IPRA3AMP IH (11:10)
== END 2016-09-04 10:05 | disposition home or self-care (01) ==
LOC: ENDO 06:59
PROVIDERS: ATTEND Surgery
DX: Z12.11 Encounter for screening for malignant neoplasm of colon (principal); K63.5 Polyp of colon; K57.30 Diverticulosis of large intestine without perforation or abscess without bleeding; E78.5 Hyperlipidemia, unspecified; I10 Essential (primary) hypertension; I73.9 Peripheral vascular disease, unspecified; Z87.891 Personal history of nicotine dependence; K21.9 Gastro-esophageal reflux disease without esophagitis; Z86.010 Personal history of colon polyps; E11.9 Type 2 diabetes mellitus without complications; F41.9 Anxiety disorder, unspecified; F32.9 Major depressive disorder, single episode, unspecified; E03.9 Hypothyroidism, unspecified
CPT/HCPCS: 88305

== ENCOUNTER 2016-09-06 16:10 | Emergency (ER) | payer MEDICARE, MEDICAID ==
[~2016-09-06] VITALS: Ht 157.5 cm; Wt 75.7 kg
--- NOTE | 2016-09-06 16:29 | ED Fall/Injury ---
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 PT TRIPPED OR HER LEG "GAVE OUT" AND SHE FELL, FACE-FIRST ONTO HARDWOOD FLOOR-- MOSTLY TO LEFT CHEEK/PERIORBITAL AREA PT IS "BLIND" IN LEFT EYE ALREADY, BUT STATES HER VISION IS "WORSE" NOW HAD A BLOODY NOSE ON THE LEFT, HAS STOPPED BLEEDING NOW NO LOSS OF CONSCIOUSNESS NO NECK OR BACK PAIN NO PARESTHESIAS OR MOTOR DEFICITS NO HEADACHE IS SLIGHTLY DIZZY NO NAUSEA/VOMITING PT DOES HAVE A HISTORY OF FALLS, AND HAS A WALKER THAT SHE IS SUPPOSED TO USE ALL THE TIME, BUT DOES NOT. HAD COLONOSCOPY 09/04/[address] SHERIDAN--NO ABDOMINAL PAIN, NO RECTAL BLEEDING, NO NAUSEA/VOMITING, EATING AND DRINKING WELL, AND NO APPARENT COMPLICATIONS FROM PROCEDURE PT IS DIABETIC ACCUCHECK 151 BY EMS PCP: CASEY-K, LOLITA MEDEROS Allergies and Home Medications Allergies Coded Allergies: latex (Verified Allergy, Unknown, 08/31/16) Home Medications Amoxicillin/Potassium Clav 1 Each Tablet, 1 EACH PO BID, #20 Prescribed by: JES PEREZ on 09/06/161728 Aspirin 81 Mg Tablet.dr, 81 MG PO DAILY, (Reported) Atorvastatin Calcium 40 Mg Tablet, 40 MG PO HS, (Reported) Calcium/Vitamin D 600 Mg Tab, 600 MG PO DAILY, (Reported) Cholecalciferol (Vitamin D3) 2,000 Unit Tablet, 2,000 UNIT PO DAILY, (Reported) Dicyclomine HCl 10 Mg Capsule, 10 MG PO QID, (Reported) Ezetimibe 10 Mg Tablet, 10 MG PO DAILY, (Reported) Gabapentin 300 Mg Capsule, 300 MG PO TID, (Reported) Glipizide 10 Mg Tablet, 10 MG PO BID, (Reported) Hydrocodone/Ibuprofen 1 Each Tablet, 1 EACH PO Q4H, #20 Prescribed by: JES PEREZ on 09/06/161728 Ibuprofen 800 Mg Tablet, 800 MG PO TID, (Reported) Lactobacillus Acidophilus 1 Each Capsule, 2 EACH PO QID, #80 Prescribed by: JES PEREZ on 09/06/161728 Levothyroxine Sodium 125 Mcg Tablet, 125 MCG PO DAILY, (Reported) Liraglutide 0.6 Mg/0.1 Ml Pen.injctr, 1.8 MG SC HS, (Reported) Magnesium Oxide 400 Mg Tablet, 400 MG PO BID, (Reported) Metformin HCl 500 Mg Tablet, 1,000 MG PO BID, (Reported) TAKES 2 (500MG) TABLETS Mirabegron 50 Mg Tab.er.24h, 50 MG PO 1200, (Reported) Montelukast Sodium 10 Mg Tablet, 10 MG PO HS, (Reported) [place]bilt-3 Fatty Acids/Fish Oil 1 Each Capsule, 1,000 MG PO TID, (Reported) Omeprazole 20 Mg Capsule.dr, 20 MG PO BID, (Reported) Oxybutynin Chloride 15 Mg Tab.er.24, 15 MG PO DAILY, (Reported) Sertraline HCl 25 Mg Tablet, 25 MG PO HS, (Reported) Tramadol HCl 50 Mg Tablet, 50 MG PO Q4H, #15 Prescribed by: JES PEREZ on 08/11/16 1828 Constitutional: no symptoms reported Eyes: See HPI Ears, Nose, Mouth, Throat: see HPI, epistaxis (ON LEFT) Respiratory: no symptoms reported Cardiovascular: no symptoms reported Gastrointestinal: no symptoms reported Genitourinary: no symptoms reported Musculoskeletal: see HPI Skin: no symptoms reported Psychiatric/Neurological: No Symptoms Reported Past Imcdrjl-Hxocyh-Hkfhfs Hx Patient Social History Smoking Status: Former Smoker (2-3 PPD) Type Used: Cigarettes Former Smoker/When Quit: Dec 25, 2006 2nd Hand Smoke Exposure: No Recent Hopitalizations: No Immunizations Up To Date Tetanus Booster (TDap): Unknown PED Vaccines UTD: No Date of Pneumonia Vaccine: Jan 26, 2012 Date of Influenza Vaccine: Nov 19, 2014 Seasonal Allergies Seasonal Allergies: Yes Surgeries HX Surgeries: Yes (LITHOTRIPSY; LEFT ARM FX/ORIF; RIGHT BREAST LUMPECTOMY; EGD/ COLONOSCOPIES; CARDIAC CATH 08/2010-NO INTERVENTION; PORT PLACED/REMOVED; LEFT EYE SURGERY X 2, RIGHT EYE SURGERY X 1, CATARACTS) Surgeries: Breast, Eye Surgery, Gallbladder, 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, Orthopedic, Renal, Thyroidectomy Respiratory Hx Respiratory Disorders: No Cardiovascular Hx Cardiac Disorders: Yes (CARDIAC CATH 2010; CAROTID DISEASE) Cardiac Disorders: Chronic Edema/Swelling, High Cholesterol, Hypertension, Peripheral Vascular Neurological Hx Neurological Disorders: Yes Neurological Disorders: Neuropathy Reproductive System Hx Reproductive Disorders: No Sexually Transmitted Disease: No HIV/AIDS: No Female Reproductive Disorders: Denies 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, Menopausal Genitourinary Hx Genitourinary Disorders: Yes (INCONTINENCE) Genitourinary Disorders: Kidney Stones Gastrointestinal Hx Gastrointestinal Disorders: Yes Gastrointestinal Disorders: Gastroesophageal Reflux, Diverticulosis, Polyps, Irritable Bowel Musculoskeletal Hx Musculoskeletal Disorders: Yes (LYMPHEDEMA OF RIGHT ARM; BILATERAL ARM FX'S ) Musculoskeletal Disorders: Degenerate Disk Disease, Arthritis, Chronic Back Pain, Fractures Endocrine Hx Endocrine Disorders: Yes ( S/P THYROIDECTOMY; OBESITY) Endocrine Disorders: Hypothyroidsim, Diabetes, Non-Insulin dep HEENT HX ENT Disorders: Yes (RETINITIS PIGMENTOSA/BLIND IN LEFT EYE; BILATERAL CATARACT SURGERY; ESOPHAGEAL DYSMOTILITY) HEENT Disorders: Cataract, Dysphagia Loss of Vision: Left Hearing Impairment: Denies Cancer Hx Cancer: Yes (S/P RIGHT LUMPECTOMY & LYMPH NODE DISSECTION 2008) Cancer: Breast Psychosocial Hx Psychiatric Problems: Yes Behavioral Health Disorders: Sleep Difficulties, Anxiety, Depression Integumentary HX Skin/Integumentary Disorder: Yes (hx of CELLULITIS OF BREAST/CHEST WALL; ) Skin/Integumentary Disorders: Herpes Blood Transfusions Hx Blood Disorders: No Adverse Reaction to a Blood Tr: No Family Medical History Family Medial History: Patient reports no known family medical history. Physical Exam Vital Signs Vital Sign - Last 12Hours 09/06/16 16:27 Temp 98.8 Pulse 83 Resp 18 B/P (MAP) 173/100 Pulse Ox 95 O2 Delivery Room Air Capillary Refill : General Appearance: WD/WN, no apparent distress HEENT: PERRL/EOMI (LEFT PUPIL SLIGHTLY SMALLER THAN RIGHT, BUT BOTH EQUALLY REACTIVE), other (+ HYPHEMA TO LEFT EYE. MODERATE LEFT PERIORBITAL HEMATOMA. POST-OP CHANGES TO BOTH PUPILS; DRIED /CLOTTED BLOOD LEFT NARE. 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, no motor/sensory deficits, alert, normal mood/affect, oriented x 3, other (APPEARS TO BE MILDLY MENTALLY CHALLENGED) Skin: normal color, warm/dry Hubbell Coma Score Best Eye Response: (4) Open Spontaneously Best Verbal Response: (5) Oriented Best Motor Response: (6) Obeys Commands Hubbell Total: 15 Progress/Results/Core Measures Results/Orders My Orders Orders - JES PEREZ DO Ct Head/Face/Cervical Wo (09/06/16 16:16) Rx-Hydrocodone/Apap 5-325 Mg (Rx-Vicodin (09/06/16 17:30) Rx-Amoxicillin/Clav Tab (Rx-Augmentin Ta (09/06/16 17:25) Vital Signs/I&O Vital Sign - Last 12Hours 09/06/16 09/06/16 16:27 17:47 Temp 98.8 98.8 Pulse 83 80 Resp 18 18 B/P (MAP) 173/100 Pulse Ox 95 95 O2 Delivery Room Air Diagnostic Imaging Comments CT HEAD/MAXILLOFACIALS/CERVICAL SPINE--NO INTRACRANIAL INJURY, NO CERVICAL SPINE INJURY; LEFT ORBITAL FRACTURES OF MEDIAL AND INFERIOR [place], WITHOUT EVIDENCE OF MUSCLE ENTRAPMENT--PER RADIOLOGIST REPORT @ 1709 Reviewed: Reviewed by Me Departure Communication Progress Notes 1713--SPOKE WITH DR. 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 MACDONALD, MAXILLOFACIAL SURGEON. HE WILL SEE PT IN OFFICE IN A FEW DAYS, DOES NOT BELIEVE PT WILL NEED SURGICAL REPAIR OF FRACTURES BASED ON CT REPORT. HE WILL REVIEW CT SCAN TOMORROW IN OFFICE AND CONTACT PT IF SHE NEEDS CARE SOONER. Impression Impression: Primary Impression: Closed fracture of left orbital floor Additional Impression: Total hyphema of left eye Disposition: 01 HOME, SELF-CARE Condition: Stable Departure-Patient Inst. Referrals: MARC CALL DO (PCP) Primary Care Physician TASHA MEDEROS (Family) Primary Care Physician SHIVANI MACDONALD DDS Patient Instructions: Black Eye, FRACTURE-FACIAL, Preventing Falls in the Older Adult Add. Discharge Instructions: ICE TO AREA AT 20 MINUTE INTERVALS SLOW POSITION CHANGES GO DIRECTLY TO DR. ENAMORADO'S OFFICE WHEN YOU LEAVE ER FOLLOW UP WITH DR. MACDONALD IN THE NEXT FEW DAYS FOR FURTHER CARE--CALL OFFICE IN AM FOR APPOINTMENT TIME All discharge instructions reviewed with patient and/or family. Voiced understanding. Scripts Hydrocodone/Ibuprofen (Hydrocodone-Ibuprofen 7.5-200) 1 Each Tablet 1 EACH PO Q4H for Pain, #20 TAB Prov: JES PEREZ DO 09/06/16 Amoxicillin/Potassium Clav (Augmentin 875-125 Tablet) 1 Each Tablet 1 EACH PO BID for INFECTION, #20 TAB Prov: JES PEREZ DO 09/06/16 Lactobacillus Acidophilus (Acidophilus) 1 Each Capsule 2 EACH PO QID, #80 CAP Prov: JES PEREZ DO 09/06/16 JES PEREZ DO Sep 06, 2016 16:29
--- NOTE | 2016-09-06 17:05 | Diagnostic Imaging Report ---
PROCEDURE: CT head, face, and cervical spine without contrast. TECHNIQUE: Multiple contiguous axial images were obtained through the head, neck, and facial bones without the use of intravenous contrast. Sagittal and coronal reformations through the cervical spine and facial bones were also performed. INDICATION: Fall. Trauma to the face. COMPARISON: 08/11/2016. FINDINGS: CT FACIAL BONES: There is new acute left orbital fracture involving the floor of the orbit. There is some mild displacement of the fracture fragments into the left maxillary sinus. There is some stranding of the periorbital fat, inferiorly. The inferior rectus muscle borders the fat stranding and fracture site, but there is no CT evidence of herniation of the inferior rectus muscle into the left maxillary sinus. There is also subtle deformity of the medial orbital wall/lamina papyracea on the left, consistent with acute fracture. There is no evidence of herniation of the medial rectus muscle. There is air-fluid level within the left maxillary sinus consistent with acute hemorrhage. There is also partial opacification of the left ethmoid air cells. This is not unexpected. Small amount of debris is also seen within the left sphenoid sinus. The right sphenoid sinus, right maxillary sinus, right ethmoid air cells and bilateral frontal sinuses are clear and show no significant mucosal thickening or abnormal air-fluid levels. Bilateral nasal bones are intact as well. Bony nasal septum is intact. Zygomatic arches are intact, bilaterally. Medial and lateral pterygoid plates are intact as well. There is no acute fracture or dislocation of the mandible. There is no evidence of acute fracture of the alveolar ridge of the maxilla. Multiple dental caries are noted. There is chronic deformity of the bilateral globes. High density material is noted within the left globe and may be on the basis of foreign object. There is moderate periorbital soft tissue swelling as well as mild soft tissue emphysema. CT HEAD: Ventricles and cortical sulci are age-appropriate. There is no mass effect or midline shift. There is no evidence of intra-axial or extra-axial intracranial hemorrhage. There is no loss of blanton-white matter junction differentiation to suggest large acute territorial infarct. No extra-axial masses or fluid collections are seen. Bony calvarium is intact. CT CERVICAL SPINE: There is mild straightening of the normal lordotic curvature of the cervical spine, which may be related to positioning and/or spasm. There is also slight grade 1 anterolisthesis of C2-C3, C5-C6 and C6-C7 levels. Findings may be related to underlying facet arthropathy and remodeling. There is otherwise no evidence of jumped facets. Vertebral body heights are maintained. There is no evidence of acute fracture. No bony fragments are seen within the spinal canal. There are advanced multilevel degenerative changes consisting of intervertebral disc height loss with anterior and posterior disc osteophyte complex formations, as well as multilevel facet arthropathy. Prevertebral and paravertebral soft tissue structures are unremarkable. Included portions of the lung apices show partially visualized pleural effusion on the left. There is also calcified carotid atherosclerosis. IMPRESSION: 1. Acute fractures of the medial and inferior orbital queen on the left. There is no distinct evidence of involvement of the adjacent extraocular muscles, but clinical correlation for entrapment is recommended. 2. Possible metallic foreign body within the left globe. 3. No acute intracranial abnormality. No CT evidence of acute infarct, mass or hemorrhage. 4. No CT evidence of acute fracture or dislocation of the cervical spine. 5. Moderate multilevel degenerative changes of the cervical spine. 6. Partially visualized left-sided pleural effusion. Dictated by: Dictated on workstation # [id number]
[2016-09-06] MEDS ORDERED: RX-AMOX/CLAV. (AUGMENTIN) 500MG TAB PPK#2 PO STA (17:25)
[2016-09-06] MEDS ORDERED: LACT1CAP8 PO (17:29)
[2016-09-06] MEDS ORDERED: HYDR-87 PO (17:29)
[2016-09-06] MEDS ORDERED: AMOX-358 PO (17:29)
[2016-09-06] MEDS ORDERED: RX-HYDROCODONE/APAP 5/325 MG #4 TAB PK PO PRN (17:30)
[2016-09-06 17:47] VITALS: BP 162/90
--- OUTSIDE RECORDS SUMMARY | 2016-09-14 00:47 | XMS REPORT | Continuity of Care Document ---
Author Author [facility] Address Unknown Phone Unavailable Allergies Active Description Code Type Severity Reaction Onset Reported/Identified Relationship to Patient Clinical Status Yes aspirin [id number] Drug Allergy Unknown N/A 11/10/2005 Yes aspirin Drug Allergy N/A N/A 03/18/2008 Yes aspirin Drug Allergy 03/18/2008 Yes predniSONE Drug Allergy 03/18/2008 Yes Lisinopril 10mg tab 20 mg tablet Drug Allergy N/A N/A 03/18/2012 Yes Lisinopril 10mg tab 20 mg tablet Drug Allergy 03/18/2012 Yes latex [id number] Drug Allergy Unknown N/A 08/31/2016 Medications Problems Date Dx Coded Attending Type [...] DO, MARC K 492.8 EMPHYSEMA OTHER 08/22/2007 CLAL DO, MARC K 250.03 DIABETES 1 UNCONTROLLED 08/22/2007 CALL DO, MARC K 401.1 ESSENTIAL HYPERTENSION BENIGN 08/22/2007 CALL DO, MARC K 492.8 EMPHYSEMA OTHER 08/22/2007 ACLL DO, MARC K 250.03 DIABETES 1 UNCONTROLLED [...] R 250.03 DIABETES 1 UNCONTROLLED 08/22/2007 ISAAC PASSENGER COACH DRIVER, NORA R 401.1 ESSENTIAL HYPERTENSION BENIGN 08/22/2007 ISAAC PASSENGER COACH DRIVER, NORA R 492.8 EMPHYSEMA OTHER 08/22/2007 ISAAC FUNES, NORA R 250.03 DIABETES 1 UNCONTROLLED 08/22/2007 ISAAC FUNES, NORA R 401.1 ESSENTIAL HYPERTENSION BENIGN 08/22/2007 ISAAC PASSENGER COACH DRIVER, NORA R 492.8 EMPHYSEMA OTHER 08/22/2007 ISAAC PASSENGER COACH DRIVER, NORA R 250.03 DIABETES 1 UNCONTROLLED 08/22/2007 ISAAC FUNES NORA R 401.1 ESSENTIAL HYPERTENSION BENIGN 08/22/2007 ISAAC PASSENGER COACH DRIVER, NORA R 492.8 EMPHYSEMA OTHER 08/22/2007 AALIYAH PASSENGER COACH DRIVER, MELVIN A 250.03 DIABETES 1 UNCONTROLLED 08/22/2007 AALIYAH PASSENGER COACH DRIVER, MELVIN A 401.1 ESSENTIAL HYPERTENSION BENIGN 08/22/2007 AALIYAH PASSENGER COACH DRIVER, MELVIN A 492.8 EMPHYSEMA OTHER 08/22/2007 CALL DO, MARC K 250.03 DIABETES 1 UNCONTROLLED 08/22/2007 CALL DO, MARC K 401.1 ESSENTIAL HYPERTENSION BENIGN 08/22/2007 CALL DO, MARC K 492.8 EMPHYSEMA OTHER 08/22/2007 ISAAC PASSENGER COACH DRIVER, NORA R 250.03 DIABETES 1 UNCONTROLLED 08/22/2007 ISAAC PASSENGER COACH DRIVER, NORA R 401.1 ESSENTIAL HYPERTENSION BENIGN 08/22/2007 ISAAC PASSENGER COACH DRIVER, NORA R 492.8 EMPHYSEMA OTHER 08/22/2007 FLAKO [...] TYPE 2 - UNCOMPLICATED, UNCONTROLLED 09/02/2007 ISAAC PASSENGER COACH DRIVER, NORA R 250.02 DIABETES MELLITUS TYPE 2 - UNCOMPLICATED , UNCONTROLLED 09/02/2007 ISAAC PASSENGER COACH DRIVER, NORA R 250.02 DIABETES MELLITUS TYPE 2 - UNCOMPLICATED , UNCONTROLLED 09/02/2007 ISAAC PASSENGER COACH DRIVER, NORA R 250.02 DIABETES MELLITUS TYPE 2 - UNCOMPLICATED , UNCONTROLLED 09/02/2007 AALIYAH PASSENGER COACH DRIVER, MELVIN A 250.02 DIABETES MELLITUS TYPE 2 - UNCOMPLICATED , UNCONTROLLED 09/02/2007 ONEYDA DO, MARC K 250.02 DIABETES MELLITUS TYPE 2 - UNCOMPLICATED, UNCONTROLLED 09/02/2007 ISAAC PASSENGER COACH DRIVER, NORA R 250.02 DIABETES MELLITUS TYPE 2 [...] MARC K 477.9 RHINITIS ALLERGIC 09/17/2007 ISAAC PASSENGER COACH DRIVER, NORA R 477.9 RHINITIS ALLERGIC 09/17/2007 CALL DO, MARC K 477.9 RHINITIS ALLERGIC 09/17/2007 CALL DO, MARC K 477.9 RHINITIS ALLERGIC 09/17/2007 FLAKO DPM, RON 477.9 RHINITIS ALLERGIC 09/17/2007 ISAAC PASSENGER COACH DRIVER, NORA R 477.9 RHINITIS ALLERGIC 09/17/2007 ISAAC PASSENGER COACH DRIVER, NORA R 477.9 RHINITIS ALLERGIC 09/17/2007 ISAAC PASSENGER COACH DRIVER, NORA R 477.9 RHINITIS ALLERGIC 09/17/2007 AALIYAH PASSENGER COACH DRIVER, MELVIN A 477.9 RHINITIS ALLERGIC 09/17/2007 CALL DO, MARC K 477.9 RHINITIS ALLERGIC 09/17/2007 ISAAC PASSENGER COACH DRIVER, NORA R 477.9 RHINITIS ALLERGIC 09/17/2007 FLAKO [...] GRAY APRNINA R 244.9 HYPOTHYROIDISM 09/24/2007 ISAAC PASSENGER COACH DRIVER, NORA R 244.9 HYPOTHYROIDISM 09/24/2007 AALIYAH PASSENGER COACH DRIVER, MELVIN A 244.9 HYPOTHYROIDISM 09/24/2007 CALL DO, MARC K 244.9 HYPOTHYROIDISM 09/24/2007 ISAAC PASSENGER COACH DRIVER, NORA R 244.9 HYPOTHYROIDISM 09/24/2007 FLAKO DPM, [...] MARC K 493.90 ASTHMA UNSPECIFIED 12/17/2007 ISAAC PASSENGER COACH DRIVER, NORA R 493.90 ASTHMA UNSPECIFIED 12/17/2007 CALL DO, MARC K 493.90 ASTHMA UNSPECIFIED 12/17/2007 CALL DO, MARC K 493.90 ASTHMA UNSPECIFIED 12/17/2007 FLAKO DPM, RON 493.90 ASTHMA UNSPECIFIED 12/17/2007 ISAAC PASSENGER COACH DRIVER, NORA R 493.90 ASTHMA UNSPECIFIED 12/17/2007 ISAAC PASSENGER COACH DRIVER, NORA R 493.90 ASTHMA UNSPECIFIED 12/17/2007 ISAAC PASSENGER COACH DRIVER, NORA R 493.90 ASTHMA UNSPECIFIED 12/17/2007 AALIYAH PASSENGER COACH DRIVER, MELVIN A 493.90 ASTHMA UNSPECIFIED 12/17/2007 CALL DO, MARC K 493.90 ASTHMA UNSPECIFIED 12/17/2007 ISAAC PASSENGER COACH DRIVER, NORA R 493.90 ASTHMA UNSPECIFIED 12/17/2007 FLAKO [...] DO, MARC K 780.4 Vertigo 04/01/2008 ISAAC PASSENGER COACH DRIVER, NORA R 780.4 Vertigo 04/01/2008 CALL DO, MARC K 780.4 Vertigo 04/01/2008 CALL DO, MARC K 780.4 Vertigo 04/01/2008 FLAKO DPM, RON 780.4 Vertigo 04/01/2008 ISAAC PASSENGER COACH DRIVER, NORA R 780.4 Vertigo 04/01/2008 ISAAC PASSENGER COACH DRIVER, NORA R 780.4 Vertigo 04/01/2008 ISAAC PASSENGER COACH DRIVER, NORA R 780.4 Vertigo 04/01/2008 AALIYAH PASSENGER COACH DRIVER, MELVIN A 780.4 Vertigo 04/01/2008 CALL DO, MARC K 780.4 Vertigo 04/01/2008 ISAAC PASSENGER COACH DRIVER, NORA R 780.4 Vertigo 04/01/2008 FLAKO DPM, [...] Breast Lump Or Mass Right 06/19/2008 ISAAC PASSENGER COACH DRIVER, NORA R 611.0 MASTITIS 06/19/2008 ISAAC PASSENGER COACH DRIVER, NORA R 611.72 Breast Lump Or Mass Right 06/19/2008 CALL DO, MARC K 611.0 MASTITIS 06/19/2008 CALL DO, MARC K 611.72 Breast Lump Or Mass Right 06/19/2008 CALL DO, MARC K 611.0 MASTITIS 06/19/2008 CALL DO, MARC K 611.72 Breast Lump Or Mass Right 06/19/2008 FLAKO DPM, RON 611.0 MASTITIS 06/19/2008 FLAKO DPM, RON 611.72 Breast Lump Or Mass Right 06/19/2008 ISAAC PASSENGER COACH DRIVER, NORA R 611.0 MASTITIS 06/19/2008 ISAAC PASSENGER COACH DRIVER, NORA R 611.72 Breast Lump Or Mass Right 06/19/2008 ISAAC PASSENGER COACH DRIVER, NORA R 611.0 MASTITIS 06/19/2008 ISAAC PASSENGER COACH DRIVER, NORA R 611.72 Breast Lump Or Mass Right 06/19/2008 ISAAC PASSENGER COACH DRIVER, NORA R 611.0 MASTITIS 06/19/2008 ISAAC PASSENGER COACH DRIVER, NROA R 611.72 Breast Lump Or Mass Right 06/19/2008 AALIYAH PASSENGER COACH DRIVER, MELVIN A 611.0 MASTITIS 06/19/2008 AALIYAH PASSENGER COACH DRIVER, MELVIN A 611.72 Breast Lump Or Mass Right 06/19/2008 CALL DO, MARC K 611.0 MASTITIS 06/19/2008 CALL DO, MARC K 611.72 Breast Lump Or Mass Right 06/19/2008 ISAAC PASSENGER COACH DRIVER, NORA R 611.0 MASTITIS 06/19/2008 ISAAC PASSENGER COACH DRIVER, NORA R 611.72 Breast Lump Or Mass [...] BREAST CANCER 07/20/2008 174.9 BREAST CANCER 07/20/2008 CLAL DO, MARC K 174.9 BREAST CANCER 07/20/2008 [...] MARC K 174.9 BREAST CANCER 07/20/2008 ISAAC PASSENGER COACH DRIVER, NORA R 174.9 BREAST CANCER 07/20/2008 CALL DO, MARC K 174.9 BREAST CANCER 07/20/2008 CALL DO, MARC K 174.9 BREAST CANCER 07/20/2008 FLAKO DPM, RON 174.9 BREAST CANCER 07/20/2008 ISAAC PASSENGER COACH DRIVER, NORA R 174.9 BREAST CANCER 07/20/2008 ISAAC PASSENGER COACH DRIVER, NORA R 174.9 BREAST CANCER 07/20/2008 ISAAC PASSENGER COACH DRIVER, NORA R 174.9 BREAST CANCER 07/20/2008 AALIYAH PASSENGER COACH DRIVER, MELVIN A 174.9 BREAST CANCER 07/20/2008 CALL DO, MARC K 174.9 BREAST CANCER 07/20/2008 ISAAC PASSENGER COACH DRIVER, NORA R 174.9 BREAST CANCER 07/20/2008 FLAKO [...] MARC K 380.4 Cerumen Impaction 12/21/2008 ISAAC PASSENGER COACH DRIVER, NORA R 380.4 Cerumen Impaction 12/21/2008 CALL DO, MARC K 380.4 Cerumen Impaction 12/21/2008 CALL DO, MARC K 380.4 Cerumen Impaction 12/21/2008 FLAKO DPM, RON 380.4 Cerumen Impaction 12/21/2008 ISAAC PASSENGER COACH DRIVER, NORA R 380.4 Cerumen Impaction 12/21/2008 ISAAC PASSENGER COACH DRIVER, NORA R 380.4 Cerumen Impaction 12/21/2008 ISAAC PASSENGER COACH DRIVER, NORA R 380.4 Cerumen Impaction 12/21/2008 AALIYAH PASSENGER COACH DRIVER, MLEVIN A 380.4 Cerumen Impaction 12/21/2008 CALL DO, [...] RON 703.0 Ingrown Toenail (infection) 09/10/2009 ISAAC PASSENGER COACH DRIVER, NORA R 703.0 Ingrown Toenail (infection) 09/10/2009 ISAAC PASSENGER COACH DRIVER, NORA R 703.0 Ingrown Toenail (infection) 09/10/2009 ISAAC PASSENGER COACH DRIVER, NORA R 703.0 Ingrown Toenail (infection) 09/10/2009 AALIYAH PASSENGER COACH DRIVER, MELVIN A 703.0 Ingrown Toenail (infection) 09/10/2009 CALL DO, MARC K 703.0 Ingrown Toenail (infection) 09/10/2009 ISAAC PASSENGER COACH DRIVER, NORA R 703.0 Ingrown Toenail (infection) 09/10/2009 [...] 110.1 ONYCHOMYCOSIS 10/08/2009 703.8 ONYCHOCRYPTOSIS 10/08/2009 CHRISTY PASSENGER COACH DRIVER, VARUN S 110.1 ONYCHOMYCOSIS 10/08/2009 CHRISTY PASSENGER COACH DRIVER, VARUN S 703.8 ONYCHOCRYPTOSIS 10/08/2009 110.1 ONYCHOMYCOSIS [...] CALL DO, MARC K 703.8 ONYCHOCRYPTOSIS 10/08/2009 CLAL DO, MARC K 110.1 ONYCHOMYCOSIS 10/08/2009 CALL DO, MARC K 703.8 ONYCHOCRYPTOSIS 10/08/2009 ISAAC FUNES, NORA R 110.1 ONYCHOMYCOSIS 10/08/2009 ISAAC PASSENGER COACH DRIVER, NORA R 703.8 ONYCHOCRYPTOSIS 10/08/2009 CALL DO, MARC K 110.1 ONYCHOMYCOSIS 10/08/2009 CALL DO, MARC K 703.8 ONYCHOCRYPTOSIS 10/08/2009 CALL DO, MARC K 110.1 ONYCHOMYCOSIS 10/08/2009 CALL DO, MARC K 703.8 ONYCHOCRYPTOSIS 10/08/2009 FLAKO DPM, RON 110.1 ONYCHOMYCOSIS 10/08/2009 FLAKO DPM, RON 703.8 ONYCHOCRYPTOSIS 10/08/2009 ISAAC PASSENGER COACH DRIVER, NORA R 110.1 ONYCHOMYCOSIS 10/08/2009 ISAAC PASSENGER COACH DRIVER, NORA R 703.8 ONYCHOCRYPTOSIS 10/08/2009 ISAAC PASSENGER COACH DRIVER, NORA R 110.1 ONYCHOMYCOSIS 10/08/2009 ISAAC PASSENGER COACH DRIVER, NORA R 703.8 ONYCHOCRYPTOSIS 10/08/2009 ISAAC PASSENGER COACH DRIVER, NORA R 110.1 ONYCHOMYCOSIS 10/08/2009 ISAAC PASSENGER COACH DRIVER, NORA R 703.8 ONYCHOCRYPTOSIS 10/08/2009 AALIYAH PASSENGER COACH DRIVER, MELVIN A 110.1 ONYCHOMYCOSIS 10/08/2009 AALIYAH PASSENGER COACH DRIVER, MELVIN A 703.8 ONYCHOCRYPTOSIS 10/08/2009 CALL DO, MARC K 110.1 ONYCHOMYCOSIS 10/08/2009 CALL DO, MARC K 703.8 ONYCHOCRYPTOSIS 10/08/2009 ISAAC PASSENGER COACH DRIVER, NORA R 110.1 ONYCHOMYCOSIS 10/08/2009 ISAAC PASSENGER COACH DRIVER, NORA R 703.8 ONYCHOCRYPTOSIS 10/08/2009 FLAKO DPM, [...] V86.0 12/27/2009 Ot V87.41 12/29/2009 CALL DO, AMRC K 250.00 DIABETES MELLITUS TYPE 2 12/29/2009 [...] DIABETES MELLITUS TYPE 2 12/29/2009 CALL DO, AMRC K 250.00 DIABETES MELLITUS TYPE 2 12/29/2009 [...] 250.00 DIABETES MELLITUS TYPE 2 12/29/2009 ISAAC PASSENGER COACH DRIVER, NORA R 250.00 DIABETES MELLITUS TYPE 2 12/29/2009 ISAAC PASSENGER COACH DRIVER, NORA R 250.00 DIABETES MELLITUS TYPE 2 12/29/2009 ISAAC PASSENGER COACH DRIVER, NORA R 250.00 DIABETES MELLITUS TYPE 2 12/29/2009 AALIYAH PASSENGER COACH DRIVER, MELVIN A 250.00 DIABETES MELLITUS TYPE 2 12/29/2009 CALL DO, MARC K 250.00 DIABETES MELLITUS TYPE 2 12/29/2009 ISAAC PASSENGER COACH DRIVER, NORA R 250.00 DIABETES MELLITUS TYPE 2 [...] FUNES, NORA R 272.1 ESSENTIAL HYPERTRIGLYCERIDEMIA 04/21/2010 ACLL DO, MARC K 272.1 ESSENTIAL HYPERTRIGLYCERIDEMIA 04/21/2010 CALL DO, MARC K 272.1 ESSENTIAL HYPERTRIGLYCERIDEMIA 04/21/2010 FLAKO DPM, RON 272.1 ESSENTIAL HYPERTRIGLYCERIDEMIA 04/21/2010 ISAAC FUNES, NORA R 272.1 ESSENTIAL HYPERTRIGLYCERIDEMIA 04/21/2010 ISAAC FUNES, NORA R 272.1 ESSENTIAL HYPERTRIGLYCERIDEMIA 04/21/2010 ISAAC PASSENGER COACH DRIVER, NORA R 272.1 ESSENTIAL HYPERTRIGLYCERIDEMIA 04/21/2010 AALIYAH [...] CALL DO, MARC K 785.1 palpitations 08/16/2010 FLAKO DPM, RON 458.0 ORTHOSTATIC HYPOTENSION IDIOPATHIC 08/16/2010 FLAKO DPM, RON 785.1 palpitations 08/16/2010 ISAAC PASSENGER COACH DRIVER, NORA R 458.0 ORTHOSTATIC HYPOTENSION IDIOPATHIC 08/16/2010 ISAAC PASSENGER COACH DRIVER, NORA R 785.1 palpitations 08/16/2010 ISAAC PASSENGER COACH DRIVER, NORA R 458.0 ORTHOSTATIC HYPOTENSION IDIOPATHIC 08/16/2010 ISAAC PASSENGER COACH DRIVER, NORA R 785.1 palpitations 08/16/2010 ISAAC PASSENGER COACH DRIVER, NORA R 458.0 ORTHOSTATIC HYPOTENSION IDIOPATHIC 08/16/2010 ISAAC PASSENGER COACH DRIVER, NORA R 785.1 palpitations 08/16/2010 AALIYAH FUNES MELVIN A 458.0 ORTHOSTATIC HYPOTENSION IDIOPATHIC 08/16/2010 AALIYAH FUNES MELVIN A 785.1 palpitations 08/16/2010 CALL DO, MARC K 458.0 ORTHOSTATIC HYPOTENSION IDIOPATHIC 08/16/2010 CALL DO, MARC K 785.1 palpitations 08/16/2010 ISAAC PASSENGER COACH DRIVER, NORA R 458.0 ORTHOSTATIC HYPOTENSION IDIOPATHIC 08/16/2010 ISAAC PASSENGER COACH DRIVER, NORA R 785.1 palpitations 08/16/2010 FLAKO DPM, [...] DO, MARC K 356.9 NEUROPATHY 09/02/2010 ISAAC PASSENGER COACH DRIVER, NORA R 356.9 NEUROPATHY 09/02/2010 CALL DO, MARC K 356.9 NEUROPATHY 09/02/2010 CALL DO, MARC K 356.9 NEUROPATHY 09/02/2010 FLAKO DPM, RON 356.9 NEUROPATHY 09/02/2010 ISAAC PASSENGER COACH DRIVER, NORA R 356.9 NEUROPATHY 09/02/2010 ISAAC PASSENGER COACH DRIVER, NORA R 356.9 NEUROPATHY 09/02/2010 ISAAC PASSENGER COACH DRIVER, NORA R 356.9 NEUROPATHY 09/02/2010 AALIYAH FUNES, MELVIN A 356.9 NEUROPATHY 09/02/2010 CALL DO, MARC K 356.9 NEUROPATHY 09/02/2010 ISAAC PASSENGER COACH DRIVER, NORA R 356.9 NEUROPATHY 09/02/2010 FLAKO DPM, [...] 788.30 urinary loss of control 06/15/2011 ISAAC PASSENGER COACH DRIVER, NORA R 682.9 Cellulitis 06/15/2011 ISAAC PASSENGER COACH DRIVER, NORA R 788.30 urinary loss of control 06/15/2011 CALL DO, MARC K 682.9 Cellulitis 06/15/2011 CALL DO, MARC K 788.30 urinary loss of control 06/15/2011 CALL DO, MARC K 682.9 Cellulitis 06/15/2011 CALL DO, MARC K 788.30 urinary loss of control 06/15/2011 FLAKO DPM, RON 682.9 Cellulitis 06/15/2011 FLAKO DPM, RON 788.30 urinary loss of control 06/15/2011 ISAAC PASSENGER COACH DRIVER, NORA R 682.9 Cellulitis 06/15/2011 ISAAC PASSENGER COACH DRIVER, NORA R 788.30 urinary loss of control 06/15/2011 ISAAC PASSENGER COACH DRIVER, NORA R 682.9 Cellulitis 06/15/2011 ISAAC PASSENGER COACH DRIVER, NORA R 788.30 urinary loss of control 06/15/2011 ISAAC PASSENGER COACH DRIVER, NORA R 682.9 Cellulitis 06/15/2011 ISAAC PASSENGER COACH DRIVER, NORA R 788.30 urinary loss of control 06/15/2011 AALIYAHNils FUNES MELVIN A 682.9 Cellulitis 06/15/2011 AALIYAH FUNES MELVIN A 788.30 urinary loss of control 06/15/2011 CALL DO, MARC K 682.9 Cellulitis 06/15/2011 CALL DO, MARC K 788.30 urinary loss of control 06/15/2011 ISAAC PASSENGER COACH DRIVER, NORA R 682.9 Cellulitis 06/15/2011 ISAAC PASSENGER COACH DRIVER, NORA R 788.30 urinary loss of control 06/15/2011 FLAKO DPM, RON 682.9 Cellulitis 06/15/2011 FLAKO DPM, RON 788.30 urinary loss of control 06/15/2011 FLAKO DPM, RON 682.9 Cellulitis 06/15/2011 FLAKO DPM, RON 788.30 urinary loss of control 06/15/2011 LAENDRO GONZALEZ MD 682.9 Cellulitis 06/15/2011 CARLOS CHAMPION, [...] K 780.60 Fever Unspecified 08/10/2011 CALL DO, MACR K 780.60 Fever Unspecified 08/10/2011 CALL DO, [...] MARC K 780.60 Fever Unspecified 08/10/2011 ISAAC PASSENGER COACH DRIVER, NORA R 780.60 Fever Unspecified 08/10/2011 CALL DO, MARC K 780.60 Fever Unspecified 08/10/2011 CALL DO, MARC K 780.60 Fever Unspecified 08/10/2011 FLAKO DPM, RON 780.60 Fever Unspecified 08/10/2011 ISAAC PASSENGER COACH DRIVER, NORA R 780.60 Fever Unspecified 08/10/2011 ISAAC PASSENGER COACH DRIVER, NORA R 780.60 Fever Unspecified 08/10/2011 ISAAC PASSENGER COACH DRIVER, NORA R 780.60 Fever Unspecified 08/10/2011 AALIYAH FUNES, MELVIN Choudhury 780.60 Fever Unspecified 08/10/2011 CALL DO, MARC K 780.60 Fever Unspecified 08/10/2011 ISAAC PASSENGER COACH DRIVER, NORA R 780.60 Fever Unspecified 08/10/2011 FLAKO [...] Edema Foot 10/13/2011 719.07 Edema Foot 10/13/2011 VARUN HARRISON APRN 719.07 Edema Foot 10/13/2011 719.07 [...] MARC K 719.07 Edema Foot 10/13/2011 ISAAC PASSENGER COACH DRIVER, NORA R 719.07 Edema Foot 10/13/2011 CALL DO, MARC K 719.07 Edema Foot 10/13/2011 CALL DO, MARC K 719.07 Edema Foot 10/13/2011 FLAKO DPM, RON 719.07 Edema Foot 10/13/2011 ISAAC PASSENGER COACH DRIVER, NORA R 719.07 Edema Foot 10/13/2011 ISAAC PASSENGER COACH DRIVER, NORA R 719.07 Edema Foot 10/13/2011 ISAAC PASSENGER COACH DRIVER, NORA R 719.07 Edema Foot 10/13/2011 AALIYAH PASSENGER COACH DRIVER, MELVIN A 719.07 Edema Foot 10/13/2011 CALL DO, MARC K 719.07 Edema Foot 10/13/2011 ISAAC PASSENGER COACH DRIVER, NORA R 719.07 Edema Foot 10/13/2011 FLAKO [...] RON V03.82 Ppv23 (pneumovax) Dx 01/03/2012 ISAAC PASSENGER COACH DRIVER, NORA R V03.82 Ppv23 (pneumovax) Dx 01/03/2012 ISAAC PASSENGER COACH DRIVER, NORA R V03.82 Ppv23 (pneumovax) Dx 01/03/2012 ISAAC PASSENGER COACH DRIVER, NORA R V03.82 Ppv23 (pneumovax) Dx 01/03/2012 AALIYAH PASSENGER COACH DRIVER, MELVIN A V03.82 Ppv23 (pneumovax) Dx 01/03/2012 CALL DO, MARC K V03.82 Ppv23 (pneumovax) Dx 01/03/2012 ISAAC PASSENGER COACH DRIVER, NORA R V03.82 Ppv23 (pneumovax) Dx 01/03/2012 [...] Pain Left Lower Quadrant 03/18/2012 WHITE DDS, CRAMEN Camejo 789.04 Abdominal Pain Left Lower Quadrant 03/18/2012 CALL DO, MARC K 789.04 Abdominal Pain Left Lower Quadrant 03/18/2012 CALL DO, MARC K 789.04 Abdominal Pain Left Lower Quadrant 03/18/2012 ISAAC PASSENGER COACH DRIVER, NORA R 789.04 Abdominal Pain Left Lower Quadrant 03/18/2012 CALL DO, MARC K 789.04 Abdominal Pain Left Lower Quadrant 03/18/2012 CALL DO, MARC K 789.04 Abdominal Pain Left Lower Quadrant 03/18/2012 FLAKO DPM, RON 789.04 Abdominal Pain Left Lower Quadrant 03/18/2012 ISAAC PASSENGER COACH DRIVER, NORA R 789.04 Abdominal Pain Left Lower Quadrant 03/18/2012 ISAAC PASSENGER COACH DRIVER, NORA R 789.04 Abdominal Pain Left Lower Quadrant 03/18/2012 ISAAC PASSENGER COACH DRIVER, NORA R 789.04 Abdominal Pain Left Lower Quadrant 03/18/2012 AALIYAH PASSENGER COACH DRIVER, MELVIN A 789.04 Abdominal Pain Left Lower Quadrant 03/18/2012 CALL DO, MARC K 789.04 Abdominal Pain Left Lower Quadrant 03/18/2012 ISAAC PASSENGER COACH DRIVER, NORA R 789.04 Abdominal Pain Left Lower [...] 682.9 SKIN ABSCESS OF EXTREMITY 04/22/2012 ISAAC PASSENGER COACH DRIVER, NORA R 682.9 SKIN ABSCESS OF EXTREMITY 04/22/2012 CALL DO, MARC K 682.9 SKIN ABSCESS OF EXTREMITY 04/22/2012 CALL DO, MARC K 682.9 SKIN ABSCESS OF EXTREMITY 04/22/2012 FLAKO DPM, RON 682.9 SKIN ABSCESS OF EXTREMITY 04/22/2012 ISAAC PASSENGER COACH DRIVER, NORA R 682.9 SKIN ABSCESS OF EXTREMITY 04/22/2012 ISAAC PASSENGER COACH DRIVER, NORA R 682.9 SKIN ABSCESS OF EXTREMITY 04/22/2012 ISAAC PASSENGER COACH DRIVER, NORA R 682.9 SKIN ABSCESS OF EXTREMITY 04/22/2012 AALIYAH PASSENGER COACH DRIVER, MELVIN A 682.9 SKIN ABSCESS OF EXTREMITY 04/22/2012 CALL DO, MARC K 682.9 SKIN ABSCESS OF EXTREMITY 04/22/2012 ISAAC PASSENGER COACH DRIVER, NORA R 682.9 SKIN ABSCESS OF EXTREMITY 04/22/2012 FLAKO DPM, RON 682.9 SKIN ABSCESS OF EXTREMITY 04/22/2012 FLAKO DPM, RON 682.9 SKIN ABSCESS OF EXTREMITY 04/22/2012 CARLOS CHAMPION, LEANDRO 682.9 SKIN ABSCESS OF EXTREMITY 04/27/2012 V58.31 [...] MARC K V58.31 WOUND DRESSING 04/27/2012 ISAAC PASSENGER COACH DRIVER, NORA R V58.31 WOUND DRESSING 04/27/2012 CALL DO, MARC K V58.31 WOUND DRESSING 04/27/2012 CALL DO, MARC K V58.31 WOUND DRESSING 04/27/2012 FLAKO DPM, RON V58.31 WOUND DRESSING 04/27/2012 ISAAC PASSENGER COACH DRIVER, NORA R V58.31 WOUND DRESSING 04/27/2012 ISAAC PASSENGER COACH DRIVER, NORA R V58.31 WOUND DRESSING 04/27/2012 ISAAC PASSENGER COACH DRIVER, NORA R V58.31 WOUND DRESSING 04/27/2012 MELVIN [...] DO, MARC K 530.5 DYSPHAGIA 07/03/2012 ISAAC PASSENGER COACH DRIVER, NORA R 530.5 DYSPHAGIA 07/03/2012 CALL DO, MARC K 530.5 DYSPHAGIA 07/03/2012 CALL DO, MARC K 530.5 DYSPHAGIA 07/03/2012 FLAKO DPM, RON 530.5 DYSPHAGIA 07/03/2012 ISAAC PASSENGER COACH DRIVER, NORA R 530.5 DYSPHAGIA 07/03/2012 ISAAC PASSENGER COACH DRIVER, NROA R 530.5 DYSPHAGIA 07/03/2012 ISAAC PASSENGER COACH DRIVER, NORA R 530.5 DYSPHAGIA 07/03/2012 AALIYAH PASSENGER COACH DRIVER, MELVIN A 530.5 DYSPHAGIA 07/03/2012 CALL DO, MARC K 530.5 DYSPHAGIA 07/03/2012 ISAAC PASSENGER COACH DRIVER, NORA R 530.5 DYSPHAGIA 07/03/2012 FLAKO DPM, [...] K 735.4 HAMMER TOE (ACQUIRED) 08/02/2012 ISAAC PASSENGER COACH DRIVER, NORA R 735.4 HAMMER TOE (ACQUIRED) 08/02/2012 CALL DO, MARC K 735.4 HAMMER TOE (ACQUIRED) 08/02/2012 CALL DO, MARC K 735.4 HAMMER TOE (ACQUIRED) 08/02/2012 FLAKO DPM, RON 735.4 HAMMER TOE (ACQUIRED) 08/02/2012 ISAAC PASSENGER COACH DRIVER, NORA R 735.4 HAMMER TOE (ACQUIRED) 08/02/2012 ISAAC PASSENGER COACH DRIVER, NORA R 735.4 HAMMER TOE (ACQUIRED) 08/02/2012 ISAAC PASSENGER COACH DRIVER, NORA R 735.4 HAMMER TOE (ACQUIRED) 08/02/2012 AALIYAH PASSENGER COACH DRIVER, MELVIN A 735.4 HAMMER TOE (ACQUIRED) 08/02/2012 CALL DO, MARC K 735.4 HAMMER TOE (ACQUIRED) 08/02/2012 ISAAC PASSENGER COACH DRIVER, NORA R 735.4 HAMMER TOE (ACQUIRED) 08/02/2012 [...] MARC K 787.20 DYSPHAGIA, UNSPECIFIED 08/26/2012 ISAAC PASSENGER COACH DRIVER, NORA R 787.20 DYSPHAGIA, UNSPECIFIED 08/26/2012 CALL DO, MARC K 787.20 DYSPHAGIA, UNSPECIFIED 08/26/2012 CALL DO, MARC K 787.20 DYSPHAGIA, UNSPECIFIED 08/26/2012 FLAKO DPM, RON 787.20 DYSPHAGIA, UNSPECIFIED 08/26/2012 ISAAC PASSENGER COACH DRIVER, NORA R 787.20 DYSPHAGIA, UNSPECIFIED 08/26/2012 ISAAC PASSENGER COACH DRIVER, NORA R 787.20 DYSPHAGIA, UNSPECIFIED 08/26/2012 ISAAC PASSENGER COACH DRIVER, NORA R 787.20 DYSPHAGIA, UNSPECIFIED 08/26/2012 AALIYAH GARYN, MELVIN A 787.20 DYSPHAGIA, UNSPECIFIED 08/26/2012 CALL DO, MARC K 787.20 DYSPHAGIA, UNSPECIFIED 08/26/2012 ISAAC PASSENGER COACH DRIVER, NORA R 787.20 DYSPHAGIA, UNSPECIFIED 08/26/2012 FLAKO [...] MARC K V04.81 FLU SHOT 11/08/2012 ISAAC PASSENGER COACH DRIVER, NORA R V04.81 FLU SHOT 11/08/2012 CALL DO, MARC K V04.81 FLU SHOT 11/08/2012 CALL DO, MARC K V04.81 FLU SHOT 11/08/2012 FLAKO DPM, RON V04.81 FLU SHOT 11/08/2012 ISAAC PASSENGER COACH DRIVER, NORA R V04.81 FLU SHOT 11/08/2012 ISAAC PASSENGER COACH DRIVER, NORA R V04.81 FLU SHOT 11/08/2012 ISAAC PASSENGER COACH DRIVER, NORA R V04.81 FLU SHOT 11/08/2012 AALIYAH PASSENGER COACH DRIVER, MELVIN A V04.81 FLU SHOT 11/08/2012 CALL DO, MARC K V04.81 FLU SHOT 11/08/2012 ISAAC PASSENGER COACH DRIVER, NORA R V04.81 FLU SHOT 11/08/2012 FLAKO [...] 054.9 HERPES SIMPLEX ANY SITE 03/25/2013 ISAAC PASSENGER COACH DRIVER, NORA R 054.9 HERPES SIMPLEX ANY SITE 03/25/2013 CALL DO, MARC K 054.9 HERPES SIMPLEX ANY SITE 03/25/2013 CALL DO, MARC K 054.9 HERPES SIMPLEX ANY SITE 03/25/2013 FLAKO DPM, RON 054.9 HERPES SIMPLEX ANY SITE 03/25/2013 ISAAC PASSENGER COACH DRIVER, NORA R 054.9 HERPES SIMPLEX ANY SITE 03/25/2013 ISAAC PASSENGER COACH DRIVER, NORA R 054.9 HERPES SIMPLEX ANY SITE 03/25/2013 ISAAC PASSENGER COACH DRIVER, NORA R 054.9 HERPES SIMPLEX ANY SITE 03/25/2013 AALIYAH PASSENGER COACH DRIVER, MELVIN A 054.9 HERPES SIMPLEX ANY SITE 03/25/2013 CALL DO, MARC K 054.9 HERPES SIMPLEX ANY SITE 03/25/2013 ISAAC PASSENGER COACH DRIVER, NORA R 054.9 HERPES SIMPLEX ANY SITE [...] K 780.99 OTHER GENERAL SYMPTOMS 08/04/2013 ISAAC PASSENGER COACH DRIVER, NORA R 682.9 CELLULITIS AND ABSCESS OF UNSPECIFIED SITES 08/04/2013 ISAAC PASSENGER COACH DRIVER, NORA R 780.50 UNSPECIFIED SLEEP DISTURBANCE 08/04/2013 ISAAC PASSENGER COACH DRIVER, NORA R 780.99 OTHER GENERAL SYMPTOMS 08/04/2013 [...] RON 780.99 OTHER GENERAL SYMPTOMS 08/04/2013 ISAAC PASSENGER COACH DRIVER, NORA R 682.9 CELLULITIS AND ABSCESS OF UNSPECIFIED SITES 08/04/2013 ISAAC PASSENGER COACH DRIVER, NORA R 780.50 UNSPECIFIED SLEEP DISTURBANCE 08/04/2013 ISAAC PASSENGER COACH DRIVER, NORA R 780.99 OTHER GENERAL SYMPTOMS 08/04/2013 ISAAC PASSENGER COACH DRIVER, NORA R 682.9 CELLULITIS AND ABSCESS OF UNSPECIFIED SITES 08/04/2013 ISAAC PASSENGER COACH DRIVER, NORA R 780.50 UNSPECIFIED SLEEP DISTURBANCE 08/04/2013 ISAAC PASSENGER COACH DRIVER, NORA R 780.99 OTHER GENERAL SYMPTOMS 08/04/2013 ISAAC PASSENGER COACH DRIVER, NORA R 682.9 CELLULITIS AND ABSCESS OF UNSPECIFIED SITES 08/04/2013 ISAAC PASSENGER COACH DRIVER, NORA R 780.50 UNSPECIFIED SLEEP DISTURBANCE 08/04/2013 ISAAC PASSENGER COACH DRIVER, NORA R 780.99 OTHER GENERAL SYMPTOMS 08/04/2013 AALIYAH PASSENGER COACH DRIVER, MELVIN A 682.9 CELLULITIS AND ABSCESS OF UNSPECIFIED SITES 08/04/2013 AALIYAH PASSENGER COACH DRIVER, MELVIN A 780.50 UNSPECIFIED SLEEP DISTURBANCE 08/04/2013 AALIYAH PASSENGER COACH DRIVER, MELVIN A 780.99 OTHER GENERAL SYMPTOMS 08/04/2013 CALL DO, MARC K 682.9 CELLULITIS AND ABSCESS OF UNSPECIFIED SITES 08/04/2013 CALL DO, MARC K 780.50 UNSPECIFIED SLEEP DISTURBANCE 08/04/2013 CALL DO, AMRC K 780.99 OTHER GENERAL SYMPTOMS 08/04/2013 ISAAC PASSENGER COACH DRIVER, NORA R 682.9 CELLULITIS AND ABSCESS OF UNSPECIFIED SITES 08/04/2013 ISAAC PASSENGER COACH DRIVER, NORA R 780.50 UNSPECIFIED SLEEP DISTURBANCE 08/04/2013 ISAAC PASSENGER COACH DRIVER, NORA R 780.99 OTHER GENERAL SYMPTOMS 08/04/2013 [...] Ot V58.81 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 08/13/2013 ISAAC PASSENGER COACH DRIVER, NORA R 729.5 PAIN IN LIMB 08/13/2013 CALL DO, MARC K 729.5 PAIN IN LIMB 08/13/2013 CALL DO, MARC K 729.5 PAIN IN LIMB 08/13/2013 FLAKO DPM, RON 729.5 PAIN IN LIMB 08/13/2013 ISAAC GARYN, NORA R 729.5 PAIN IN LIMB 08/13/2013 ISAAC PASSENGER COACH DRIVER, NORA R 729.5 PAIN IN LIMB 08/13/2013 ISAAC PASSENGER COACH DRIVER, NORA R 729.5 PAIN IN LIMB 08/13/2013 AALIYAHNITIN FUNES, MELVIN A 729.5 PAIN IN LIMB 08/13/2013 CALL DO, MARC K 729.5 PAIN IN LIMB 08/13/2013 ISAAC PASSENGER COACH DRIVER, NORA R 729.5 PAIN IN LIMB 08/13/2013 [...] 401.9 03/09/2014 Ot V58.69 03/09/2014 BAIHEATHERARIANNA L GASTROENTEROLOGY NURSE Ot 272.4 03/09/2014 BAIMA ARIANNA L GASTROENTEROLOGY NURSE Ot V58.69 03/09/2014 FATIMAH CHAMPION, KEYLA Bar Ot V72.84 03/09/2014 KITA, BOBAN N Ot 174.9 03/09/2014 KITA, BOBAN N Ot 728.87 03/09/2014 KITA, BOBAN N Ot V58.69 03/09/2014 KITA, BOBAN N Ot 174.9 03/09/2014 JUNIOR HILAH S GASTROENTEROLOGY NURSE Ot 174.9 03/09/2014 JUNIOR HILAH S GASTROENTEROLOGY NURSE Ot V58.69 03/09/2014 JUNIOR HILAH S GASTROENTEROLOGY NURSE Ot 733.90 03/09/2014 YUE ARIANNA L GASTROENTEROLOGY NURSE Ot 272.4 03/09/2014 BAIMA ARIANNA L GASTROENTEROLOGY NURSE Ot V58.69 03/09/2014 BAIMA ARIANNA L GASTROENTEROLOGY NURSE Ot 433.10 03/09/2014 KITA, BOBAN N Ot 174.9 03/09/2014 NORA GRAY R PASSENGER COACH DRIVER Ot 454.9 03/09/2014 NORA GRAY R PASSENGER COACH DRIVER Ot 729.5 03/09/2014 KITA, BOBAN N Ot 174.9 03/09/2014 KITA, BOBAN N Ot 253.8 03/09/2014 KITA, BOBAN N Ot 437.1 03/09/2014 KITA, BOBAN N Ot 780.97 03/09/2014 JUNIORMK Infante S GASTROENTEROLOGY NURSE Ot 174.9 03/09/2014 JUNIOR HILAH S GASTROENTEROLOGY NURSE Ot 174.9 03/09/2014 KITA, BOBAN N Ot [...] 04/07/2014 Ot V58.69 04/07/2014 BAIMA ARIANNA L GASTROENTEROLOGY NURSE Ot 272.4 04/07/2014 BAIMA, ARIANNA L GASTROENTEROLOGY NURSE Ot V58.69 04/07/2014 FATIMAH CHAMPION, KEYLA Bar Ot V72.84 04/07/2014 KITA, BOBAN N Ot 174.9 04/07/2014 KITA, BOBAN N Ot 728.87 04/07/2014 KITA, BOBAN N Ot V58.69 04/07/2014 KITA, BOBAN N Ot 174.9 04/07/2014 JUNIOR HILAH S GASTROENTEROLOGY NURSE Ot 174.9 04/07/2014 JUNIOR, HILAH S GASTROENTEROLOGY NURSE Ot V58.69 04/07/2014 JUNIOR HILAH S GASTROENTEROLOGY NURSE Ot 733.90 04/07/2014 ARIANNA TURNER L GASTROENTEROLOGY NURSE Ot 272.4 04/07/2014 BAIMA ARIANNA L GASTROENTEROLOGY NURSE Ot V58.69 04/07/2014 BAIMA ARIANNA L GASTROENTEROLOGY NURSE Ot 433.10 04/07/2014 KITA, BOBAN N Ot 174.9 04/07/2014 NORA GRAY PASSENGER COACH DRIVER Ot 454.9 04/07/2014 NORA GRAY PASSENGER COACH DRIVER Ot 729.5 04/07/2014 KITA, BOBAN N Ot 174.9 04/07/2014 KITA, BOBAN N Ot 253.8 04/07/2014 KITA, BOBAN N Ot 437.1 04/07/2014 KITA, BOBAN N Ot 780.97 04/07/2014 JUNIOR HILAH S GASTROENTEROLOGY NURSE Ot 174.9 04/07/2014 JUNIOR, HILAH S GASTROENTEROLOGY NURSE Ot 174.9 04/07/2014 KITA, BOBAN N Ot 174.9 04/07/2014 KITA, BOBAN N Ot V58.81 04/13/2014 RON ARRIOLA DPM 250.02 DIABETES II UNCONTROLLED (UNCOMPLICATED) 04/13/2014 LEANDRO GONZALEZ MD 250.02 DIABETES II UNCONTROLLED (UNCOMPLICATED) 04/16/2014 KITA, BOBAN N Ot 174.9 04/16/2014 KITA, BOBAN N Ot V58.81 05/15/2014 CARLOS CHAMPION, LEANDRO 466.0 ACUTE BRONCHITIS 05/19/2014 BAIMA ARIANNA L GASTROENTEROLOGY NURSE Ot 244.9 05/19/2014 BAIMA, ARIANNA L GASTROENTEROLOGY NURSE Ot 272.0 05/19/2014 BAIMA, ARIANNA L GASTROENTEROLOGY NURSE Ot 278.00 05/19/2014 BAIMA, ARIANNA L GASTROENTEROLOGY NURSE Ot 401.9 05/19/2014 BAIMA, ARIANNA L GASTROENTEROLOGY NURSE Ot 447.9 06/07/2014 [facility] N Ot [...] 06/22/2014 Ot V58.69 06/22/2014 BAIMA ARIANNA L GASTROENTEROLOGY NURSE Ot 272.4 06/22/2014 BAIMA ARIANNA L GASTROENTEROLOGY NURSE Ot V58.69 06/22/2014 FATIMAH CHAMPION, KEYLA Bar Ot V72.84 06/22/2014 KITA, BOBAN N Ot 174.9 06/22/2014 KITA, BOBAN N Ot 728.87 06/22/2014 KITA, BOBAN N Ot V58.69 06/22/2014 KITA, BOBAN N Ot 174.9 06/22/2014 MK JUNIOR S GASTROENTEROLOGY NURSE Ot 174.9 06/22/2014 JUNIOR, HILAH S GASTROENTEROLOGY NURSE Ot V58.69 06/22/2014 SANDI HILAH S GASTROENTEROLOGY NURSE Ot 733.90 06/22/2014 ARIANNA TURNER L GASTROENTEROLOGY NURSE Ot 272.4 06/22/2014 BAIHEATHER ARIANNA L GASTROENTEROLOGY NURSE Ot V58.69 06/22/2014 BAIHEATHER ARIANNA L GASTROENTEROLOGY NURSE Ot 433.10 06/22/2014 KITA, BOBAN N Ot 174.9 06/22/2014 NORA GRAY PASSENGER COACH DRIVER Ot 454.9 06/22/2014 NORA GRAY PASSENGER COACH DRIVER Ot 729.5 06/22/2014 KITA, BOBAN N Ot 174.9 06/22/2014 KITA, BOBAN N Ot 253.8 06/22/2014 KITA, BOBAN N Ot 437.1 06/22/2014 KITA, BOBAN N Ot 780.97 06/22/2014 JUNIOR, HILAH S GASTROENTEROLOGY NURSE Ot 174.9 06/22/2014 JUNIOR, HILAH S GASTROENTEROLOGY NURSE Ot 174.9 06/22/2014 DARNELL TURNERHER L GASTROENTEROLOGY NURSE Ot 244.9 06/22/2014 ARIANNA TURNER GASTROENTEROLOGY NURSE Ot 272.0 06/22/2014 ARIANNA TURNER GASTROENTEROLOGY NURSE Ot 278.00 06/22/2014 ARIANNA TURNER GASTROENTEROLOGY NURSE Ot 401.9 06/22/2014 BAIARIANNA ROMERO GASTROENTEROLOGY NURSE Ot 447.9 06/22/2014 [facility] N Ot [...] 11/03/2014 Ot V58.69 11/03/2014 BAIARIANNA ROMERO L GASTROENTEROLOGY NURSE Ot 272.4 11/03/2014 BAIARIANNA ROMERO L GASTROENTEROLOGY NURSE Ot V58.69 11/03/2014 FATIMAH CHAMPION, KEYLA Bar Ot V72.84 11/03/2014 KITARYAN VARGASAN N Ot 174.9 11/03/2014 KITA, BOBAN N Ot 728.87 11/03/2014 KITA, BOBAN N Ot V58.69 11/03/2014 KITA, BOBAN N Ot 174.9 11/03/2014 MK JUNIOR S GASTROENTEROLOGY NURSE Ot 174.9 11/03/2014 MK JUNIOR S GASTROENTEROLOGY NURSE Ot V58.69 11/03/2014 MK JUNIOR S GASTROENTEROLOGY NURSE Ot 733.90 11/03/2014 ARIANNA TURNER L GASTROENTEROLOGY NURSE Ot 272.4 11/03/2014 BAIARIANNA ROMERO L GASTROENTEROLOGY NURSE Ot V58.69 11/03/2014 BAIHEATHER ARIANNA L GASTROENTEROLOGY NURSE Ot 433.10 11/03/2014 KITA, BOBAN N Ot 174.9 11/03/2014 NORA GRAY R PASSENGER COACH DRIVER Ot 454.9 11/03/2014 NORA GRAY R PASSENGER COACH DRIVER Ot 729.5 11/03/2014 KITA, BOBAN N Ot 174.9 11/03/2014 KITA, BOBAN N Ot 253.8 11/03/2014 KITA, BOBAN N Ot 437.1 11/03/2014 KITA, BOBAN N Ot 780.97 11/03/2014 MK JUNIOR S GASTROENTEROLOGY NURSE Ot 174.9 11/03/2014 MK JUNIOR S GASTROENTEROLOGY NURSE Ot 174.9 11/03/2014 ARIANNA TURNER GASTROENTEROLOGY NURSE Ot 244.9 11/03/2014 ARIANNA TURNER GASTROENTEROLOGY NURSE Ot 272.0 11/03/2014 ARIANNA TURNER GASTROENTEROLOGY NURSE Ot 278.00 11/03/2014 ARIANNA TURNER GASTROENTEROLOGY NURSE Ot 401.9 11/03/2014 ARIANNA TURNER GASTROENTEROLOGY NURSE Ot 447.9 11/03/2014 [facility] N Ot [...] Z23 ENCOUNTER FOR IMMUNIZATION 07/01/2015 TASHA MEDEROS GASTROENTEROLOGY NURSE Ot N61 INFLAMMATORY DISORDERS OF BREAST 07/02/2015 TASHA MEDEROS GASTROENTEROLOGY NURSE Ot N61 INFLAMMATORY DISORDERS OF BREAST 07/02/2015 TASHA MEDEROS GASTROENTEROLOGY NURSE Ot Z85.3 PERSONAL HISTORY OF MALIGNANT NEOPLASM O 07/09/2015 [facility] Ot C50.919 MALIGNANT NEOPLASM OF UNSP SITE OF UNSPE 07/09/2015 [facility] Ot Z23 ENCOUNTER FOR IMMUNIZATION 07/28/2015 TASHA MEDEROS GASTROENTEROLOGY NURSE Ot N61 INFLAMMATORY DISORDERS OF BREAST 07/28/2015 TASHA MEDEROS GASTROENTEROLOGY NURSE Ot Z85.3 PERSONAL HISTORY OF MALIGNANT NEOPLASM O 08/04/2015 TASHA MEDEROS GASTROENTEROLOGY NURSE Ot N61 INFLAMMATORY DISORDERS OF BREAST 08/04/2015 TASHA MEDEROS GASTROENTEROLOGY NURSE Ot Z85.3 PERSONAL HISTORY OF MALIGNANT NEOPLASM O 08/10/2015 TASHA MEDEROS GASTROENTEROLOGY NURSE Ot N61 INFLAMMATORY DISORDERS OF BREAST 08/10/2015 TASHA MEDEROS GASTROENTEROLOGY NURSE Ot N61 INFLAMMATORY DISORDERS OF BREAST 08/27/2015 TASHA MEDEROS GASTROENTEROLOGY NURSE Ot N61 INFLAMMATORY DISORDERS OF BREAST 08/27/2015 TASHA MEDEROS GASTROENTEROLOGY NURSE Ot L03.90 CELLULITIS, UNSPECIFIED 08/30/2015 TASHA MEDEROS GASTROENTEROLOGY NURSE Ot L03.90 CELLULITIS, UNSPECIFIED 09/17/2015 TASHA MEDEROS GASTROENTEROLOGY NURSE Ot N61 INFLAMMATORY DISORDERS OF BREAST 09/30/2015 TASHA MEDEROS GASTROENTEROLOGY NURSE Ot L03.90 CELLULITIS, UNSPECIFIED 10/06/2015 KITA [place] [...] OF MALIGNANT NEOPLASM O 10/15/2015 TASHA MEDEROS GASTROENTEROLOGY NURSE Ot L03.90 CELLULITIS, UNSPECIFIED 11/29/2015 Ot 174.9 [...] V72.63 PRE-PROCEDURAL LABORATORY EXAMINATION 11/29/2015 Ot V72.81 [id number] CARDIOVASCULAR 11/29/2015 Ot V72.83 EXAM PRE-OPERATIVE NEC [...] OTH MED,LT,CURRENT USE 11/29/2015 BAIMA, ARIANNA L GASTROENTEROLOGY NURSE Ot 272.4 HYPERLIPIDEMIA NEC/NOS 11/29/2015 BAIMA, ARIANNA L GASTROENTEROLOGY NURSE Ot V58.69 OTH MED,LT,CURRENT USE 11/29/2015 FATIMAH CHAMPION, KEYLA Bar Ot V72.84 EXAM PRE-OPERATIVE NOS 11/29/2015 [facility] N Ot 174.9 MALIGN NEOPL BREAST NOS 11/29/2015 [facility] N Ot 728.87 MUSCLE WEAKNESS (GENERALIZED) 11/29/2015 [facility] N Ot V58.69 OTH MED,LT,CURRENT USE 11/29/2015 [facility] N Ot 174.9 MALIGN NEOPL BREAST NOS 11/29/2015 JUNIOR, HILAH S GASTROENTEROLOGY NURSE Ot 174.9 MALIGN NEOPL BREAST NOS 11/29/2015 JUNIOR HILAH S GASTROENTEROLOGY NURSE Ot V58.69 OTH MED,LT,CURRENT USE 11/29/2015 JUNIOR HILAH S GASTROENTEROLOGY NURSE Ot 733.90 BONE CARTILAGE DIS NOS 11/29/2015 YUE ARIANNA L GASTROENTEROLOGY NURSE Ot 272.4 HYPERLIPIDEMIA NEC/NOS 11/29/2015 YUE ARIANNA L GASTROENTEROLOGY NURSE Ot V58.69 OTH MED,LT,CURRENT USE 11/29/2015 BAIMA ARIANNA L GASTROENTEROLOGY NURSE Ot 433.10 CAROTID ARTERY OCCLUSION W O CEREBRAL IN 11/29/2015 [facility] N Ot 174.9 MALIGN NEOPL BREAST NOS 11/29/2015 NORA GRAY PASSENGER COACH DRIVER Ot 454.9 ASYMPTOMATIC VARICOSE VEINS 11/29/2015 NORA GRAY PASSENGER COACH DRIVER Ot 729.5 PAIN IN LIMB 11/29/2015 [facility] N Ot 174.9 MALIGN NEOPL BREAST NOS 11/29/2015 [facility] N Ot 253.8 PITUITARY DISORDER NEC 11/29/2015 [facility] N Ot 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 11/29/2015 [facility] N Ot 780.97 ALTERED MENTAL STATUS 11/29/2015 JUNIOR HILAH S GASTROENTEROLOGY NURSE Ot 174.9 MALIGN NEOPL BREAST NOS 11/29/2015 JUNIOR HILAH S GASTROENTEROLOGY NURSE Ot 174.9 MALIGN NEOPL BREAST NOS 11/29/2015 BAIMA ARIANNA L GASTROENTEROLOGY NURSE Ot 244.9 HYPOTHYROIDISM NOS 11/29/2015 JULIOMA ARIANNA L GASTROENTEROLOGY NURSE Ot 272.0 PURE HYPERCHOLESTEROLEM 11/29/2015 BAIMA ARIANNA L GASTROENTEROLOGY NURSE Ot 278.00 OBESITY, NOS 11/29/2015 BAIARIANNA ROMERO Elizabeth GASTROENTEROLOGY NURSE Ot 401.9 HYPERTENSION NOS 11/29/2015 ARIANNA TURNER GASTROENTEROLOGY NURSE Ot 447.9 ARTERIAL DISEASE NOS 11/29/2015 Ot [...] STENOSIS OF BILATERAL MAY 11/29/2015 TASHA MEDEROS [facility] Ot N61 INFLAMMATORY DISORDERS OF BREAST 11/29/2015 TASHA MEDEROS [facility] Ot Z85.3 PERSONAL HISTORY OF MALIGNANT NEOPLASM O 11/29/2015 TASHA MEDEROS [facility] Ot N61 INFLAMMATORY DISORDERS OF BREAST 11/29/2015 TASHA MEDEROS [facility] Ot N61 INFLAMMATORY DISORDERS OF BREAST 11/29/2015 TASHA MEDEROS [facility] Ot L03.90 CELLULITIS, UNSPECIFIED 12/08/2015 Ot 174.9 [...] V72.63 PRE-PROCEDURAL LABORATORY EXAMINATION 12/08/2015 Ot V72.81 [id number] CARDIOVASCULAR 12/08/2015 Ot V72.83 EXAM PRE-OPERATIVE NEC [...] OTH MED,LT,CURRENT USE 12/08/2015 BAIMA, ARIANNA L GASTROENTEROLOGY NURSE Ot 272.4 HYPERLIPIDEMIA NEC/NOS 12/08/2015 BAIMA, ARIANNA L GASTROENTEROLOGY NURSE Ot V58.69 OTH MED,LT,CURRENT USE 12/08/2015 FATIMAH CHAMPION, KEYLA Bar Ot V72.84 EXAM PRE-OPERATIVE NOS 12/08/2015 [facility] Ot 174.9 MALIGN NEOPL BREAST NOS 12/08/2015 [facility] Ot 728.87 MUSCLE WEAKNESS (GENERALIZED) 12/08/2015 [facility] Ot V58.69 OTH MED,LT,CURRENT USE 12/08/2015 KITA, BOBAN N Ot 174.9 MALIGN NEOPL BREAST NOS 12/08/2015 MK JUNIOR S GASTROENTEROLOGY NURSE Ot 174.9 MALIGN NEOPL BREAST NOS 12/08/2015 MK JUNIOR S GASTROENTEROLOGY NURSE Ot V58.69 OTH MED,LT,CURRENT USE 12/08/2015 MK JUNIOR S GASTROENTEROLOGY NURSE Ot 733.90 BONE CARTILAGE DIS NOS 12/08/2015 BAIMA, ARIANNA L GASTROENTEROLOGY NURSE Ot 272.4 HYPERLIPIDEMIA NEC/NOS 12/08/2015 BAIMA, ARIANNA L GASTROENTEROLOGY NURSE Ot V58.69 OTH MED,LT,CURRENT USE 12/08/2015 BAIMA ARIANNA L GASTROENTEROLOGY NURSE Ot 433.10 CAROTID ARTERY OCCLUSION W O CEREBRAL IN 12/08/2015 [facility] Ot 174.9 MALIGN NEOPL BREAST NOS 12/08/2015 NORA GRAY PASSENGER COACH DRIVER Ot 454.9 ASYMPTOMATIC VARICOSE VEINS 12/08/2015 NORA GRAY PASSENGER COACH DRIVER Ot 729.5 PAIN IN LIMB 12/08/2015 [facility] Ot 174.9 MALIGN NEOPL BREAST NOS 12/08/2015 [facility] Ot 253.8 PITUITARY DISORDER NEC 12/08/2015 [facility] Ot 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 12/08/2015 [facility] Ot 780.97 ALTERED MENTAL STATUS 12/08/2015 MK JUNIOR S GASTROENTEROLOGY NURSE Ot 174.9 MALIGN NEOPL BREAST NOS 12/08/2015 MK JUNIOR S GASTROENTEROLOGY NURSE Ot 174.9 MALIGN NEOPL BREAST NOS 12/08/2015 BAIMA ARIANNA L GASTROENTEROLOGY NURSE Ot 244.9 HYPOTHYROIDISM NOS 12/08/2015 JULIOMA, ARIANNA L GASTROENTEROLOGY NURSE Ot 272.0 PURE HYPERCHOLESTEROLEM 12/08/2015 BAIMA, ARIANNA L GASTROENTEROLOGY NURSE Ot 278.00 OBESITY, NOS 12/08/2015 BAIMA, ARIANNA L GASTROENTEROLOGY NURSE Ot 401.9 HYPERTENSION NOS 12/08/2015 BAIMA, ARIANNA L GASTROENTEROLOGY NURSE Ot 447.9 ARTERIAL DISEASE NOS 12/08/2015 Ot [...] STENOSIS OF BILATERAL MAY 12/08/2015 TASHA MEDEROS GASTROENTEROLOGY NURSE Ot N61 INFLAMMATORY DISORDERS OF BREAST 12/08/2015 TASHA MEDEROS GASTROENTEROLOGY NURSE Ot Z85.3 PERSONAL HISTORY OF MALIGNANT NEOPLASM O 12/08/2015 TASHA MEDEROS GASTROENTEROLOGY NURSE Ot N61 INFLAMMATORY DISORDERS OF BREAST 12/08/2015 TASHA MEDEROS GASTROENTEROLOGY NURSE Ot N61 INFLAMMATORY DISORDERS OF BREAST 12/08/2015 TASHA MEDEROS GASTROENTEROLOGY NURSE Ot L03.90 CELLULITIS, UNSPECIFIED 12/08/2015 [facility] Ot I89.0 LYMPHEDEMA, NOT ELSEWHERE CLASSIFIED 12/08/2015 [facility] Ot M85.80 OTH DISRD OF BONE DENSITY AND STRUCTURE, 12/08/2015 [facility] Ot Z08 ENCNTR FOR FOLLOW-UP EXAM AFTER TRTMT FO 12/08/2015 [facility] Ot Z85.3 PERSONAL HISTORY OF MALIGNANT NEOPLASM O 12/08/2015 TASHA MEDEROS GASTROENTEROLOGY NURSE Ot I83.222 VARICOS VN OF L LOW EXTREM W ULC OF CALF 12/08/2015 TASHA MEDEROS GASTROENTEROLOGY NURSE Ot I83.92 ASYMPTOMATIC VARICOSE VEINS OF LEFT LOWE 12/09/2015 TASHA MEDEROS GASTROENTEROLOGY NURSE Ot I83.222 VARICOS VN OF L LOW EXTREM W ULC OF CALF 12/09/2015 TASHA MEDEROS GASTROENTEROLOGY NURSE Ot I83.92 ASYMPTOMATIC VARICOSE VEINS OF LEFT LOWE 12/09/2015 TASHA MEDEROS GASTROENTEROLOGY NURSE Ot I83.222 VARICOS VN OF L LOW EXTREM W ULC OF CALF 12/09/2015 TASHA MEDEROS Macey GASTROENTEROLOGY NURSE Ot I83.92 ASYMPTOMATIC VARICOSE VEINS OF LEFT LOWE 12/16/2015 MK JUNIOR Naresh GASTROENTEROLOGY NURSE Ot C50.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 12/16/2015 MK JUNIOR S GASTROENTEROLOGY NURSE Ot M85.9 DISORDER OF BONE DENSITY AND STRUCTURE, 12/16/2015 MK JUNIOR GASTROENTEROLOGY NURSE Ot C50.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 12/16/2015 JUNIORMK Infante S GASTROENTEROLOGY NURSE Ot M85.9 DISORDER OF BONE DENSITY AND STRUCTURE, 12/17/2015 JUNIORMK Infante S GASTROENTEROLOGY NURSE Ot C50.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 12/17/2015 JUNIORMK Infante S GASTROENTEROLOGY NURSE Ot M85.9 DISORDER OF BONE DENSITY AND STRUCTURE, 12/28/2015 MK JUNIOR GASTROENTEROLOGY NURSE Ot C50.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 12/28/2015 JUNIORMK Infante S GASTROENTEROLOGY NURSE Ot M85.9 DISORDER OF BONE DENSITY AND STRUCTURE, 12/30/2015 DAHLIA MEDEROSANGE Choudhury GASTROENTEROLOGY NURSE Ot I83.222 VARICOS VN OF L LOW EXTREM W ULC OF CALF 12/30/2015 DAHLIA MEDEROSANGE Choudhury GASTROENTEROLOGY NURSE Ot I83.92 ASYMPTOMATIC VARICOSE VEINS OF LEFT LOWE 01/06/2016 ALEJANDRA MEDEROSCitlalli Choudhury GASTROENTEROLOGY NURSE Ot I83.222 VARICOS VN OF L LOW EXTREM W ULC OF CALF 01/06/2016 DAHLIA MEDEROSANGE Choudhury GASTROENTEROLOGY NURSE Ot I83.92 ASYMPTOMATIC VARICOSE VEINS OF LEFT LOWE 02/17/2016 MK JUNIOR GASTROENTEROLOGY NURSE Ot C50.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 02/17/2016 JUNIORMK Infante S GASTROENTEROLOGY NURSE Ot M85.9 DISORDER OF BONE DENSITY AND STRUCTURE, 03/05/2016 [facility] Ot I89.0 LYMPHEDEMA, NOT ELSEWHERE CLASSIFIED 03/05/2016 [facility] Ot M85.80 OTH DISRD OF BONE DENSITY AND STRUCTURE, 03/05/2016 [facility] Ot Z08 ENCNTR FOR FOLLOW-UP EXAM AFTER TRTMT FO 03/05/2016 [facility] Ot Z85.3 PERSONAL HISTORY OF MALIGNANT NEOPLASM O 05/26/2016 BAIMA, ARIANNA L GASTROENTEROLOGY NURSE Ot E78.4 OTHER HYPERLIPIDEMIA 05/26/2016 BAIMA, ARIANNA L GASTROENTEROLOGY NURSE Ot I07.1 RHEUMATIC TRICUSPID INSUFFICIENCY 05/26/2016 BAIMA, ARIANNA L GASTROENTEROLOGY NURSE Ot I10 ESSENTIAL (PRIMARY) HYPERTENSION 05/26/2016 BAIMA, ARIANNA L GASTROENTEROLOGY NURSE Ot I34.0 NONRHEUMATIC MITRAL (VALVE) INSUFFICIENC 05/26/2016 BAIMA, ARIANNA L GASTROENTEROLOGY NURSE Ot I65.23 OCCLUSION AND STENOSIS OF BILATERAL MAY 05/26/2016 BAIMA, ARIANNA L GASTROENTEROLOGY NURSE Ot E78.4 OTHER HYPERLIPIDEMIA 05/26/2016 BAIMA, ARIANNA L GASTROENTEROLOGY NURSE Ot I07.1 RHEUMATIC TRICUSPID INSUFFICIENCY 05/26/2016 BAIMA, ARIANNA L GASTROENTEROLOGY NURSE Ot I10 ESSENTIAL (PRIMARY) HYPERTENSION 05/26/2016 BAIMA, ARIANNA L GASTROENTEROLOGY NURSE Ot I34.0 NONRHEUMATIC MITRAL (VALVE) INSUFFICIENC 05/26/2016 BAIMA, ARIANNA L GASTROENTEROLOGY NURSE Ot I65.23 OCCLUSION AND STENOSIS OF BILATERAL MAY 06/23/2016 BAIMA, ARIANNA L GASTROENTEROLOGY NURSE Ot E78.4 OTHER HYPERLIPIDEMIA 06/23/2016 BAIMA, ARIANNA L GASTROENTEROLOGY NURSE Ot I07.1 RHEUMATIC TRICUSPID INSUFFICIENCY 06/23/2016 BAIMA, ARIANNA L GASTROENTEROLOGY NURSE Ot I10 ESSENTIAL (PRIMARY) HYPERTENSION 06/23/2016 BAIMA, ARIANNA L GASTROENTEROLOGY NURSE Ot I34.0 NONRHEUMATIC MITRAL (VALVE) INSUFFICIENC 06/23/2016 BAIMA, ARIANNA L GASTROENTEROLOGY NURSE Ot I65.23 OCCLUSION AND STENOSIS OF BILATERAL MAY 06/26/2016 [facility] Ot I89.0 LYMPHEDEMA, NOT ELSEWHERE CLASSIFIED 06/26/2016 [facility] Ot M85.80 OTH DISRD OF BONE DENSITY AND STRUCTURE, 06/26/2016 [facility] Ot Z08 ENCNTR FOR FOLLOW-UP EXAM AFTER TRTMT FO 06/26/2016 [facility] Ot Z85.3 PERSONAL HISTORY OF MALIGNANT NEOPLASM O 06/30/2016 BAIMA, ARIANNA L GASTROENTEROLOGY NURSE Ot E78.4 OTHER HYPERLIPIDEMIA 06/30/2016 BAIMA, ARIANNA L GASTROENTEROLOGY NURSE Ot I07.1 RHEUMATIC TRICUSPID INSUFFICIENCY 06/30/2016 ARIANNA TURNER GASTROENTEROLOGY NURSE Ot I10 ESSENTIAL (PRIMARY) HYPERTENSION 06/30/2016 ARIANNA TURNER GASTROENTEROLOGY NURSE Ot I34.0 NONRHEUMATIC MITRAL (VALVE) INSUFFICIENC 06/30/2016 ARIANNA TURNER GASTROENTEROLOGY NURSE Ot I65.23 OCCLUSION AND STENOSIS OF BILATERAL MAY 08/04/2016 MK JUNIOR GASTROENTEROLOGY NURSE Ot Z12.31 ENCNTR SCREEN MAMMOGRAM FOR MALIGNANT NE 08/07/2016 KEYLA SHERIDAN MD Ot E03.9 HYPOTHYROIDISM, UNSPECIFIED 08/07/2016 KEYLA SHERIDAN MD Ot E11.9 TYPE 2 DIABETES MELLITUS WITHOUT COMPLIC 08/07/2016 KEYLA SHERIDAN MD Ot E78.5 HYPERLIPIDEMIA, UNSPECIFIED 08/07/2016 KEYLA SHERIDAN MD Ot F32.9 MAJOR DEPRESSIVE DISORDER, SINGLE EPISOD 08/07/2016 KEYLA SHERIDAN MD Ot I10 ESSENTIAL (PRIMARY) HYPERTENSION 08/07/2016 KEYLA SHERIDAN MD Ot K21.9 GASTRO-ESOPHAGEAL REFLUX DISEASE WITHOUT 08/07/2016 KEYLA SHERIDAN MD Ot K57.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 08/07/2016 KEYLA SHERIDAN MD Ot M19.90 UNSPECIFIED OSTEOARTHRITIS, UNSPECIFIED 08/07/2016 KEYLA SHERIDAN MD Ot Z12.11 ENCOUNTER FOR [...] ENCOUNTER FOR SCREENING FOR MALIGNANT NE 08/08/2016 FATIMAH CHAMPION, KEYLA Bar Ot E03.9 HYPOTHYROIDISM, UNSPECIFIED 08/08/2016 KEYLA SHERIDAN [...] W/O PERFORATION OR AB 08/08/2016 KEYLA SHERIDAN MD, Ot M19.90 UNSPECIFIED OSTEOARTHRITIS, UNSPECIFIED 08/08/2016 KEYLA SHERIDAN MD Ot Z12.11 ENCOUNTER FOR SCREENING FOR MALIGNANT NE 08/09/2016 KEYLA SHERIDAN MD Ot Z01.818 ENCOUNTER FOR OTHER PREPROCEDURAL EXAMIN 08/09/2016 KEYLA SHERIDAN MD Ot Z12.11 ENCOUNTER FOR SCREENING FOR MALIGNANT NE 08/11/2016 JES PEREZ DO Ot E03.9 HYPOTHYROIDISM, UNSPECIFIED 08/11/2016 JES PEREZ DO Ot E11.9 TYPE 2 DIABETES MELLITUS WITHOUT COMPLIC 08/11/2016 JES PEREZ DO Ot I10 ESSENTIAL (PRIMARY) HYPERTENSION 08/11/2016 JES PEREZ DO Ot S00.12XA CONTUSION OF LEFT EYELID AND PERIOCULAR 08/11/2016 JES PEREZ DO Ot S00.81XA ABRASION OF OTHER PART OF HEAD, INITIAL 08/11/2016 JES PEREZ DO Ot S09.90XA UNSPECIFIED INJURY OF HEAD, INITIAL ENCO 08/11/2016 JES PEREZ DO Ot S09.93XA UNSPECIFIED INJURY OF FACE, INITIAL ENCO 08/11/2016 JES PEREZ DO Ot S16.1XXA STRAIN OF MUSCLE, FASCIA AND TENDON AT N 08/11/2016 JES PEREZ DO Ot S40.012A CONTUSION OF LEFT SHOULDER, INITIAL ENCO 08/11/2016 JES PEREZ DO Ot W01.198A FALL SAME LEV FROM SLIP/TRIP W STRIKE AG 08/11/2016 JES PEREZ DO Ot Y92.[address] 08/11/2016 JES PEREZ DO Ot Z23 ENCOUNTER FOR IMMUNIZATION 08/11/2016 JES PEREZ DO Ot Z79.82 [facility] (CURRENT) USE OF ASPIRIN 08/11/2016 JES PEREZ DO Ot Z85.3 PERSONAL HISTORY OF MALIGNANT NEOPLASM O 08/11/2016 JES PEREZ DO Ot Z87.39 PERSONAL HISTORY OF DISEASES OF THE MS S 08/11/2016 JES PEREZ DO Ot Z87.891 PERSONAL HISTORY OF NICOTINE DEPENDENCE 08/11/2016 CHRIS LOJA JES Riddle Ot Z98.890 OTHER SPECIFIED POSTPROCEDURAL STATES 08/31/2016 MK JUNIOR Ot Z12.31 ENCNTR SCREEN MAMMOGRAM FOR MALIGNANT NE 09/01/2016 FATIMAH CHAMPION, KEYLA Bar Ot K57.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 09/01/2016 KEYLA SHERIDAN MD Ot Z01.818 ENCOUNTER FOR OTHER PREPROCEDURAL EXAMIN 09/03/2016 KE[place]ON EAST Ot I89.0 LYMPHEDEMA, NOT ELSEWHERE CLASSIFIED 09/03/2016 [place] Ot M85.80 OT DISRD OF BONE DENSITY AND STRUCTURE, 09/03/2016 [place] Ot Z08 ENCNTR FOR FOLLOW-UP EXAM AFTER TRTMT FO 09/03/2016 [place] Ot Z85.3 PERSONAL HISTORY OF MALIGNANT NEOPLASM O 09/06/2016 FATIMAH CHAMPION, KEYLA Bar Ot E03.9 HYPOTHYROIDISM, UNSPECIFIED 09/06/2016 FATIMAH CHAMPION, KEYLA Bar Ot E11.9 TYPE 2 DIABETES MELLITUS WITHOUT COMPLIC 09/06/2016 KEYLA SHERIDAN MD Ot E78.5 HYPERLIPIDEMIA, UNSPECIFIED 09/06/2016 KEYLA SHERIDAN MD Ot F32.9 MAJOR DEPRESSIVE DISORDER, SINGLE EPISOD 09/06/2016 KEYLA SHERIDAN MD Ot F41.9 ANXIETY DISORDER, UNSPECIFIED 09/06/2016 FATIMAH CHAMPION, KEYLA Bar Ot I10 ESSENTIAL (PRIMARY) HYPERTENSION 09/06/2016 KEYLA SHERIDAN MD Ot I73.9 PERIPHERAL VASCULAR DISEASE, UNSPECIFIED 09/06/2016 KEYLA SHERIDAN MD Ot K21.9 GASTRO-ESOPHAGEAL REFLUX DISEASE WITHOUT 09/06/2016 KEYLA SHERIDAN MD Ot K57.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 09/06/2016 KEYLA SHERIDAN MD Ot K63.5 POLYP OF COLON 09/06/2016 KEYLA SHERIDAN MD Ot Z12.11 ENCOUNTER FOR SCREENING FOR MALIGNANT NE 09/06/2016 KEYLA SHERIDAN MD Ot Z86.010 PERSONAL HISTORY OF COLONIC POLYPS 09/06/2016 KEYLA SHERIDAN MD, Ot Z87.891 PERSONAL HISTORY OF NICOTINE DEPENDENCE Procedures Code Description [place] [address] ROUTINE VENIPUNCTURE 12/04/2011 02774 A1C (IN-HOUSE) 00714 TSH 12/05/2011 29241 A1C (IN-HOUSE) 13027 ROUTINE VENIPUNCTURE 03/25/2012 20899 MICRO ALBUMIN-IN HOUSE 03/25/2012 55454 CMP 03/25/2012 46526 LIPID PANEL 03/25 [id number] GFR CALC (RESULT ONLY) 03/25/2012 10730 TSH 03/25/2012 47203 CULTURE WOUND (AEROBIC) 04/24/2012 Abelardo Serrato 04/25/2012 78532 I/D SIMPLE ABSCESS 04/26/2012 34615 A1C (IN-HOUSE) 78223 DEBRIDE NAIL 1-5 07/05/2012 44318 DEBRIDE NAIL 1-5 08/02/2012 75350 DEBRIDE NAIL 1-5 11/08/2012 G0008 FLU ADMINISTRATION (MEDICARE ONLY) 11/08/2012 04857 A1C (IN-HOUSE) 16855 MICRO ALBUMIN-IN HOUSE 12/25/2012 26194 ROUTINE VENIPUNCTURE 12/26/2012 58349 TSH 12/26/2012 [id number] GFR CALC (RESULT ONLY) 12/26/2012 85303 CMP 12/26/2012 07813 LIPID PANEL 12/26 29751 CBC 01/08/2013 83113 CMP 01/08/2013 48136 DEBRIDE NAIL 1-5 01/24/2013 54953 CMP 02/18/2013 38772 LIPID PANEL 02/18 44963 DEBRIDE NAIL 1-5 05/09/2013 16858 CMP 06/30/2013 46705 CBC 06/30/2013 32419 ROUTINE VENIPUNCTURE 08/04/2013 74863 A1C (IN-HOUSE) 02298 MICRO ALBUMIN-IN HOUSE 08/04/2013 [id number] GFR CALC (RESULT ONLY) 08/04/2013 68235 CMP 08/04/2013 75628 MAGNESIUM 2013 51393 TSH 08/04/2013 86228 DEBRIDE NAIL 1-5 08/08/2013 96900 US VENOUS DOPPLER (DVT EVAL) 08/14/2013 44550 DEBRIDE NAIL 1-5 11/07/2013 86164 A1C (IN-HOUSE) G0008 FLU ADMINISTRATION (MEDICARE ONLY) 11/18/2013 22455 UA W/ CULTURE IF INDICATED 12/17/2013 42029 CULTURE URINE 24393 UA W/ CULTURE IF INDICATED 12/22/2013 34420 EAR LAVAGE 2013 67841 DEBRIDE NAIL 1-5 01/23/2014 Results Test Result Range Complete blood count (CBC) with automated white blood cell (WBC) differential - 09/13/16 10:15 Blood leukocytes automated count (number/volume) 6.3 10*3/ uL 4.3-11.0 Blood erythrocytes automated count (number/volume) 4.07 10*6 /uL 4.35-5.85 Venous blood hemoglobin measurement (mass/volume) 11.0 g/dL 11.5-16.0 Blood hematocrit (volume fraction) 36 % 35-52 Automated erythrocyte mean corpuscular volume 89 [foz_us] 80-99 Automated erythrocyte mean corpuscular hemoglobin (mass per erythrocyte) 27 pg 25-34 Automated erythrocyte mean corpuscular hemoglobin concentration measurement ( mass/volume) 30 g/dL 32-36 Automated erythrocyte distribution width ratio 15.2 % 10.0-14.5 Automated blood platelet count (count/volume) 211 10*3/uL 130-400 Automated blood platelet mean volume measurement 10.0 [foz_ us] 7.4-10.4 Automated blood neutrophils/100 leukocytes 70 % 42-75 Automated blood lymphocytes/100 leukocytes 20 % 12-44 Blood monocytes/100 leukocytes 9 % 0-12 Automated blood eosinophils/100 leukocytes 1 % 0-10 Automated blood basophils/100 leukocytes 1 % 0-10 Blood neutrophils automated count (number/volume) 4.5 10*3 1.8-7.8 Blood lymphocytes automated count (number/volume) 1.2 10*3 1.0-4.0 Blood monocytes automated count (number/volume) 0.6 10*3 0.0-1.0 Automated eosinophil count 0.1 10*3/uL 0.0-0.3 Automated blood basophil count (count/volume) 0.0 10*3/uL 0.0-0.1 Whole blood basic metabolic panel - 09/13/16 10:15 Serum or plasma sodium measurement (moles/volume) 143 mmol/ L 135-145 Serum or plasma potassium measurement (moles/volume) 4.1 mmol/L 3.6-5.0 Serum or plasma chloride measurement (moles/volume) 106 mmol /L 98-107 Carbon dioxide 31 mmol/L 21-32 Serum or plasma anion gap determination (moles/volume) 6 mmol/L 5-14 Serum or plasma urea nitrogen measurement (mass/volume) 24 mg/dL 7-18 Serum or plasma creatinine measurement (mass/volume) 0.61 mg /dL 0.60-1.30 Serum or plasma urea nitrogen/creatinine mass ratio 39 NRG Serum or plasma creatinine measurement with calculation of estimated glomerular filtration rate > NRG Serum or plasma glucose measurement (mass/volume) 148 mg/dL 70-105 Serum or plasma calcium measurement (mass/volume) 9.3 mg/dL 8.5-10.1 Encounters ACCT No. Visit Date/Time Discharge Status Pt. Type Provider Facility Loc./Unit Complaint [id number] 05/15/2014 09:17:00 05/15/2014 23: 59:59 CLS Outpatient LEANDRO GONZALEZ MD [id number] 05/08/2014 10:21:00 05/08/2014 23: 59:59 CLS Outpatient RON ARRIOLA DPM [id number] 02/06/2014 09:18:00 02/06/2014 23: 59:59 CLS Outpatient NORA GRAY APRN [id number] 01/23/2014 10:12:00 01/23/2014 23: 59:59 CLS Outpatient RON ARRIOLA DPM [id number] 01/23/2014 10:12:00 01/23/2014 23: 59:59 CLS Outpatient CALL DOMARC Janessa [id number] 12/22/2013 10:13:00 12/22/2013 23: 59:59 CLS Outpatient MELVIN FISCHER APRN [id number] 12/17/2013 10:48:00 12/17/2013 23: 59:59 CLS Outpatient JOSE GRAY APRNINA R [id number] 11/18/2013 10:29:00 11/18/2013 23: 59:59 CLS Outpatient ISAAC FUNES NORA R [id number] 11/18/2013 10:29:00 11/18/2013 23: 59:59 CLS Outpatient ISAAC FUNES NORA R [id number] 11/07/2013 09:35:00 11/07/2013 23: 59:59 CLS Outpatient RON ARRIOLA DPM [id number] 08/13/2013 10:46:00 08/13/2013 23: 59:59 CLS Outpatient JOSE GRAY APRNSEVEN Gordon [id number] 08/08/2013 08:29:00 08/08/2013 23: 59:59 CLS Outpatient CALL DOMARC Janessa [id number] 08/08/2013 08:29:00 08/08/2013 23: 59:59 CLS Outpatient CALL DOMATTHIASMacey Riddle [id number] 08/04/2013 09:40:00 08/04/2013 23: 59:59 CLS Outpatient CALL DO, MARC K [id number] 08/04/2013 09:40:00 08/04/2013 23: 59:59 CLS Outpatient CALL DOMATTHIASMacey Riddle [id number] 06/13/2013 08:51:00 06/13/2013 23: 59:59 CLS Outpatient WHITE DDS, LIZBETH Devries [id number] 05/09/2013 08:41:00 05/09/2013 23: 59:59 CLS Outpatient CALL DO, MARC Riddle [id number] 05/09/2013 08:41:00 05/09/2013 23: 59:59 CLS Outpatient CALL DO, MARC Riddle [id number] 04/14/2013 13:09:00 04/14/2013 23: 59:59 CLS Outpatient WHITE DDS, CARMEN Camejo [id number] 02/28/2013 09:52:00 02/28/2013 23: 59:59 CLS Outpatient WHITE DDS, CARMEN Camejo [id number] 01/24/2013 07:46:00 01/24/2013 23: 59:59 CLS Outpatient CALL DOMARC [id number] 01/24/2013 07:46:00 01/24/2013 23: 59:59 CLS Outpatient CALL DOMARC [id number] 12/26/2012 10:57:00 12/26/2012 23: 59:59 CLS Outpatient CALL DOMARC [id number] 12/25/2012 07:43:00 12/25/2012 23: 59:59 CLS Outpatient CALL DOMARC [id number] 12/25/2012 07:43:00 12/25/2012 23: 59:59 CLS Outpatient CALL DOMARC [id number] 11/08/2012 08:50:00 11/08/2012 23: 59:59 CLS Outpatient CALL DOMARC [id number] 11/08/2012 07:47:00 11/08/2012 23: 59:59 CLS Outpatient CALL DOMARC [id number] 05/04/2012 12:28:00 05/04/2012 23: 59:59 CLS Outpatient CHRISTYVARUN SOTELO APRN [id number] 05/02/2012 09:19:00 05/02/2012 23: 59:59 CLS Outpatient [id number] 04/30/2012 10:39:00 04/30/2012 23: 59:59 CLS Outpatient [id number] 04/27/2012 09:24:00 04/27/2012 23: 59:59 CLS Outpatient [id number] 04/26/2012 09:16:00 04/26/2012 23: 59:59 CLS Outpatient CALL DOMARC [id number] 04/25/2012 15:27:00 04/25/2012 23: 59:59 CLS Outpatient [id number] 04/23/2012 10:37:00 04/23/2012 23: 59:59 CLS Outpatient [id number] 03/26/2012 10:02:00 03/26/2012 23: 59:59 CLS Outpatient [id number] 03/25/2012 09:15:00 03/25/2012 23: 59:59 CLS Outpatient CALL DOMARC [id number] 03/18/2012 11:10:00 03/18/2012 23: 59:59 CLS Outpatient CALL DOMARC [id number] 03/18/2012 11:10:00 03/18/2012 23: 59:59 CLS Outpatient MARC CALL DO Janessa [id number] 01/26/2012 09:10:00 01/26/2012 23: 59:59 CLS Outpatient CALL MARC Janessa [id number] 12/04/2011 09:34:00 12/04/2011 23:59 :59 CLS Outpatient MARC CALL DO Janessa [id number] 10/07/2012 10:47:00 Document Registration [id number] 08/02/2012 10:27:00 Document Registration [id number] 07/03/2012 08:49:00 Document Registration [id number] 07/03/2012 08:49:00 Document Registration [id number] 04/26/2012 09:16:00 Document Registration
[2016-09-22] MEDS ORDERED: HYDR-3820 PO (15:02)
[2016-10-04] MEDS ORDERED: ALBU2.5V4 IH (10:55)
[2016-10-04] MEDS ORDERED: IPRA3AMP IH (11:10)
== END 2016-09-06 17:47 | disposition home or self-care (01) ==
LOC: EDUNIT# 16:10 → ER 16:11
DX: S02.32XA Fracture of orbital floor, left side, initial encounter for closed fracture (principal); E11.40 Type 2 diabetes mellitus with diabetic neuropathy, unspecified; K21.9 Gastro-esophageal reflux disease without esophagitis; M19.90 Unspecified osteoarthritis, unspecified site; E78.00 Pure hypercholesterolemia, unspecified; E03.9 Hypothyroidism, unspecified; F41.9 Anxiety disorder, unspecified; F32.9 Major depressive disorder, single episode, unspecified; I10 Essential (primary) hypertension; I73.9 Peripheral vascular disease, unspecified; Z91.81 History of falling; Z79.82 Long term (current) use of aspirin; Z79.84 Long term (current) use of oral hypoglycemic drugs; Z87.891 Personal history of nicotine dependence; Z86.19 Personal history of other infectious and parasitic diseases; W01.0XXA Fall on same level from slipping, tripping and stumbling without subsequent striking against object, initial encounter
CPT/HCPCS: 70450; 70486; 72125; 99283

== ENCOUNTER 2016-09-13 09:25 | Outpatient (CLI) | payer MEDICARE, MEDICAID ==
[~2016-09-13] VITALS: Ht 157.5 cm; Wt 80.7 kg
[~2016-09-13 09:25] MED LIST changes: +AMOX-358 PO; +HYDR-87 PO; +LACT1CAP8 PO; +LIRA0.6P3 SC; -LIRA0.6P3 SQ
[2016-09-13] MEDS ORDERED: BRIM5DRO OS (09:44)
[2016-09-13] MEDS ORDERED: BRIN1S OS (09:44)
[2016-09-13 09:49] VITALS: BP 136/84
[2016-09-13 10:52] LABS: BASOPHILS % (AUTO) 1 % (0-10); EOSINOPHILS # (AUTO) 0.1 10^3/uL (0.0-0.3); EOSINOPHILS % (AUTO) 1 % (0-10); LYMPHOCYTES # (AUTO) 1.2 X 10^3 (1.0-4.0); LYMPHOCYTES % (AUTO) 20 % (12-44); MEAN CORPUSCULAR HEMOGLOBIN 27 PG (25-34); MEAN CORPUSCULAR HGB CONC 30 G/DL (32-36); MEAN CORPUSCULAR VOLUME 89 FL (80-99); MONOCYTES # (AUTO) 0.6 X 10^3 (0.0-1.0); MONOCYTES % (AUTO) 9 % (0-12); NEUTROPHILS # (AUTO) 4.5 X 10^3 (1.8-7.8); NEUTROPHILS % (AUTO) 70 % (42-75); PLATELET COUNT 211 10^3/uL (130-400); RED BLOOD COUNT 4.07 10^6/uL (4.35-5.85); RED CELL DISTRIBUTION WIDTH 15.2 % (10.0-14.5); WHITE BLOOD COUNT 6.3 10^3/uL (4.3-11.0)
[2016-09-13 11:09] LABS: ANION GAP 6 MMOL/L (5-14); BLOOD UREA NITROGEN 24 MG/DL (7-18); BUN/CREATININE RATIO 39; CALCIUM 9.3 MG/DL (8.5-10.1); CARBON DIOXIDE 31 MMOL/L (21-32); CHLORIDE 106 MMOL/L (98-107); CREATININE SERUM 0.61 MG/DL (0.60-1.30); GFR ESTIMATED > 60; GLUCOSE 148 MG/DL (70-105); POTASSIUM 4.1 MMOL/L (3.6-5.0); SODIUM 143 MMOL/L (135-145)
== END 2016-09-13 10:20 | disposition home or self-care (01) ==
LOC: PREOP 09:25
PROVIDERS: ATTEND Surgery
DX: Z01.812 Encounter for preprocedural laboratory examination (principal); Z11.2 Encounter for screening for other bacterial diseases; K63.5 Polyp of colon
CPT/HCPCS: 36415; 80048; 85025; 87081

== ENCOUNTER 2016-09-20 05:57 | Inpatient (IN) | payer MEDICARE, MEDICAID ==
[~2016-09-20] VITALS: Ht 157.5 cm; Wt 80.7 kg
[2016-09-20] VITALS (14 sets, daily range): BP systolic 124–150; BP diastolic 77–106
[~2016-09-20 05:57] MED LIST changes: +BRIM5DRO OS; +BRIN1S OS; -LIRA0.6P3 SC; +LIRA0.6P3 SQ
[2016-09-20] MEDS ORDERED: metroNIDAZOLE 500MG/100ML IVPB 100 ML ONE (06:29)
[2016-09-20] MEDS ORDERED: ceFAZolin 2 GM/50 ML NS 50 ML ONE (06:29)
[2016-09-20] MEDS ORDERED: FAMOTIDINE 20MG/2ML IV (PEPCID) ONE (06:33)
[2016-09-20] MEDS ORDERED: ONDANSETRON 4 MG/2 ML (SDV) Z0FRAN ONE ×3 (06:33→09:24)
[2016-09-20] MEDS ORDERED: fentaNYL INJECTION 100 MCG/2 ML AMP ONE ×2 (06:34→10:53)
[2016-09-20] MEDS ORDERED: LIDOCAINE PF 2% 5 ML (XYLOCAINE) VIAL ONE (06:34)
[2016-09-20] MEDS ORDERED: proPOfol 200 MG/20 ML (DIPRIVAN) VIAL IV ONE ×2 (06:34→08:19)
[2016-09-20] MEDS ORDERED: MIDAZOLAM 2 MG/2 ML (VERSED) VIAL ONE (06:35)
[2016-09-20] MEDS: LACTATED RINGERS 1,000 ML IV PRN ×4 (06:43→16:16)
[2016-09-20] MEDS ORDERED: BUP/EPI 0.25% 1:200,000 (MARCAINE) 10 ML VIAL IJ ONE (06:48)
[2016-09-20] MEDS ORDERED: PRED1DRO OS (06:52)
[2016-09-20] MEDS ORDERED: HOMA5DRO10 OS (06:52)
[2016-09-20] MEDS ORDERED: ceFAZolin 2 GM/NS 50 ML IV ONE (07:00)
[2016-09-20] MEDS ORDERED: metroNIDAZOLE 500 MG/100 ML IVPB (PRE-MIX) IV ONE (07:00)
--- NOTE | 2016-09-20 07:14 | Progress Note-Pre Operative ---
Pre-Operative Progress Note H&P Reviewed The H&P was reviewed, patient examined and no changes noted. Date Seen by Provider: Sep 20, 2016 Time Seen by Provider: 07:13 Date H&P Reviewed: Sep 20, 2016 Time H&P Reviewed: 07:14 Pre-Operative Diagnosis: Sessile polyp of cecum KEYLA SHERIDAN MD Sep 20, 2016 7:14 am
[2016-09-20] MEDS ORDERED: FAMOTIDINE 20MG/2ML IV (PEPCID) IV ONE (07:15)
[2016-09-20] MEDS ORDERED: ONDANSETRON 4 MG/2 ML (SDV) Z0FRAN IV ONE (07:15)
[2016-09-20] MEDS ORDERED: SEVOFLURANE (ULTANE) 15 ML INHAL SOLN ONE ×13 (07:51→10:41)
[2016-09-20] MEDS ORDERED: LACTATED RINGERS 2,000 ML IV ONE (07:51)
[2016-09-20] MEDS ORDERED: ROCURONIUM 50 MG/5 ML (ZEMURON) VIAL IV ONE (07:51)
[2016-09-20] MEDS ORDERED: PHENYLEPHRINE INJ 10 MG/ML (NEO-SYNEPHRINE 1%) ONE (08:19)
[2016-09-20] MEDS ORDERED: morphine INJ 10 MG/ML 1ML (SYR OR VIAL) ONE (09:24)
[2016-09-20] MEDS ORDERED: HYDROmorphone (DILAUDID) 2 MG/ML VIAL ONE (09:24)
[2016-09-20] MEDS ORDERED: LACTATED RINGERS 1,000 ML IV ONE (09:54)
[2016-09-20] MEDS ORDERED: NEOSTIGMINE (BLOXIVERZ ) 1 MG/1ML 10 ML VIAL ONE (10:42)
[2016-09-20] MEDS ORDERED: GLYCOPYRROLATE 0.2 MG/ML (ROBINUL) 2 ML VIAL ONE (10:42)
--- NOTE | 2016-09-20 11:15 | Operative Report ---
Operative Report Date of Procedure/Surgery Sep 20, 2016 Surgeon (s) KEYLA SHERIDAN MD Turbine Technician (s): not applicable Post-Operative Diagnosis same Procedure Performed robotic assisted right colon resection with intracorporeal anastomosis Description of Procedure Anesthesia Type: General Estimated blood loss (mL): minimal Specimen(s) collected/removed right colon Description of the Procedure Indication for the procedure:A screening colonoscopy revealed a sessile polyp at the cecum about 7 mm in diameter. Despite benign biopsy results, due to the sessile nature of the polyp, it is felt reasonable to perform a segmental resection using minimally invasive technique. Informed consent was obtained after reviewing the operative details and complications of wound infection, anastomotic leak, intra-abdominal abscess and cardiorespiratory respiratory dysfunction. Description of the procedure: She was placed supine on the operative table and general anesthesia induced using an endotracheal tube. A gram of Ancef and 500 mg of Flagyl were administered intravenously as prophylaxis against wound infection. Sequential compression devices were placed around her legs, to minimize the risk of venous thrombosis. A Reagan catheter was placed to monitor urine output during the perioperative period. Abdomen was prepared and draped in the usual sterile manner.. Pneumoperitoneum was established using a Veress needle introduced lateral and to the left of the umbilicus. Intra-abdominal pressure was maintained at 15 mmHg using carbon dioxide insufflation. A 12 mm trocar was placed and anatomy visualized using the high definition, 3-dimensional laparoscope, associated with da Igor system. Sarika ink use to tack to the lesion over the cecum was easily identified. Under direct view, I placed an 8 mm trocar over the side of the camera followed by an additional 8 mm trocar left subcostal margin. A 12 millimeters stapler port was placed cephalad to the camera port.an additional 12 mm trocar was placed inferior lateral to the camera to facilitate using an account assistant's grasper. The patient was then turned into slight Trendelenburg position, with the right side tilted up. The robotic system was then docked in place. Right colon was held up using a Cardiere forceps,displaying the ileocolic vascular pedicle. It was taken down using the vessel sealing device. Mobilization was then continued in a medial to lateral direction using the vessel sealing device. Duodenum was identified and protected. Subsequently, mesentery of the terminal ileum was taken down using the vessel sealing device and the small bowel transected using a robotic blue vascular stapler. proximal transverse colon was then transected using the same device, in preparation for anastomosis. The specimen was then placed in the pelvis to be continued at the end of the operation Terminal ileum was oriented in an ice of-peristaltic fashion and secured with 3- 0 silk stay sutures. An enterotomy was made along the staple line and an anastomosis made using a blue robotic stapler. The common enterotomy was then closed using a first layer of 2-0V LOC suture in a continuous fashion and the second layer of seromuscular suture with 3-0 silk.hemostasis was satisfactory. A 5 cm Pfannenstiel incision was made and a wound protecting device placed. The specimen was then retrieved without contaminating the incision. The rectum overlying the Pfannenstiel incision was closed using 2-0 PDS. Fascia was closed using #2 Prolene, in a continuous fashion. The fascia over the stapler port was closed using #1 Vicryl. Incisions were then closed using 3 -0 Vicryl for the subcutaneous tissue and a 4-0 Vicryl for skin, in a subcuticular fashion. 0.25 percent Marcaine with epinephrine was infiltrated along the incisions, both preemptively and at the conclusion of the operation She tolerated the procedure well, was extubated in the operating room and taken to the recovery room in a stable condition. Findings of the Procedure see operative report Allergies and Home Medications Allergies Coded Allergies: latex (Verified Allergy, Unknown, 08/31/16) Home Medications Aspirin 81 Mg Tablet.dr, 81 MG PO DAILY, (Reported) Atorvastatin Calcium 40 Mg Tablet, 40 MG PO HS, (Reported) Brimonidine Tartrate/Timolol 5 Ml Drops, 1 ML OS BID, (Reported) Brinzolamide 10 Ml Btl, 1 DROPS OS BID, (Reported) Calcium/Vitamin D 600 Mg Tab, 600 MG PO DAILY, (Reported) Cholecalciferol (Vitamin D3) 2,000 Unit Tablet, 2,000 UNIT PO DAILY, (Reported) Dicyclomine HCl 10 Mg Capsule, 10 MG PO QID, (Reported) Ezetimibe 10 Mg Tablet, 10 MG PO DAILY, (Reported) Gabapentin 300 Mg Capsule, 300 MG PO TID, (Reported) Glipizide 10 Mg Tablet, 10 MG PO BID, (Reported) Homatropine HBr 5 Ml Drops, 1 DROP OS BID, (Reported) Hydrocodone/Ibuprofen 1 Each Tablet, 1 EACH PO Q4H, #20 Prescribed by: JES PEREZ on 09/06/16 1729 Ibuprofen 800 Mg Tablet, 800 MG PO TID, (Reported) Lactobacillus Acidophilus 1 Each Capsule, 2 EACH PO QID, #80 Prescribed by: JES PEREZ on 09/06/169 Levothyroxine Sodium 125 Mcg Tablet, 125 MCG PO DAILY, (Reported) Liraglutide 0.6 Mg/0.1 Ml Pen.injctr, 1.8 MG SC HS, (Reported) Magnesium Oxide 400 Mg Tablet, 400 MG PO BID, (Reported) Metformin HCl 500 Mg Tablet, 1,000 MG PO BID, (Reported) TAKES 2 (500MG) TABLETS Mirabegron 50 Mg Tab.er.24h, 50 MG PO 1200, (Reported) Montelukast Sodium 10 Mg Tablet, 10 MG PO HS, (Reported) [place]-3 Fatty Acids/Fish Oil 1 Each Capsule, 1,000 MG PO TID, (Reported) Omeprazole 20 Mg Capsule.dr, 20 MG PO BID, (Reported) Oxybutynin Chloride 15 Mg Tab.er.24, 15 MG PO DAILY, (Reported) Prednisolone Acetate 1 Ml Drops.susp, 1 DROP OP 6times a day, (Reported) Sertraline HCl 25 Mg Tablet, 25 MG PO HS, (Reported) KEYLA SHERIDAN MD Sep 20, 2016 11:15 am
[2016-09-20] MEDS ORDERED: LACTATED RINGERS 1,000 ML IV PRN (11:16)
[2016-09-20] MEDS ORDERED: ONDANSETRON 4 MG/2 ML (SDV) Z0FRAN IVP PRN ×2 (11:30)
[2016-09-20] MEDS ORDERED: fentaNYL INJECTION 100 MCG/2 ML AMP IV PRN (11:30)
[2016-09-20] MEDS: morphine INJ 10 MG/ML 1ML (SYR OR VIAL) IVP PRN ×3 (11:37→11:50)
[2016-09-20] MEDS ORDERED: metroNIDAZOLE 500MG/100ML IVPB 100 ML IV SCH (13:30)
[2016-09-20] MEDS ORDERED: ceFAZolin INJECTION 1,000 MG in NS (IVPB) 50 ML IV SCH (13:30)
[2016-09-20] MEDS ORDERED: HYDR-87 PO (14:11)
[2016-09-20] MEDS ORDERED: EZET10TA27 PO (14:11)
[2016-09-20] MEDS ORDERED: PATIENT MAY USE OWN MED,SINGLE MED PO SCH (16:00)
[2016-09-20] MEDS ORDERED: inSUlin ASPART (NovoLOG) 1 UNIT/0.01 ML (CHARGE PER UNIT) SC SCH (16:00)
[2016-09-20] MEDS: prednisoLONE 1% OPTH (PRED FORTE) 5 ML BTL OS SCH ×2 (16:33→20:01)
[2016-09-20] MEDS: HOMATROPINE OS SCH (20:24)
[2016-09-20] MEDS: ATORVASTATIN 40 MG (LIPITOR) TABLET PO SCH (20:24)
[2016-09-20] MEDS: OPTH OS SCH (20:24)
[2016-09-20] MEDS: inSUlin ASPART (NovoLOG) 1 UNIT/0.01 ML (CHARGE PER UNIT) SC SCH (20:28)
[2016-09-21] VITALS (15 sets, daily range): BP systolic 114–180; BP diastolic 68–116
[2016-09-21] MEDS ORDERED: ceFAZolin INJECTION 1,000 MG in NS (IVPB) 50 ML IV SCH ×2
[2016-09-21] MEDS ORDERED: metroNIDAZOLE 500MG/100ML IVPB 100 ML IV SCH
[2016-09-21] MEDS: prednisoLONE 1% OPTH (PRED FORTE) 5 ML BTL OS SCH ×6 (00:05→20:38)
[2016-09-21 04:06] LABS: ANION GAP 13 MMOL/L (5-14); BLOOD UREA NITROGEN 12 MG/DL (7-18); BUN/CREATININE RATIO 19; CALCIUM 8.7 MG/DL (8.5-10.1); CARBON DIOXIDE 21 MMOL/L (21-32); CHLORIDE 104 MMOL/L (98-107); CREATININE SERUM 0.64 MG/DL (0.60-1.30); GFR ESTIMATED > 60; GLUCOSE 150 MG/DL (70-105); MAGNESIUM 1.5 MG/DL (1.8-2.4); POTASSIUM 3.9 MMOL/L (3.6-5.0); SODIUM 138 MMOL/L (135-145)
[2016-09-21 04:19] LABS: BASOPHILS % (AUTO) 0 % (0-10); MEAN CORPUSCULAR HEMOGLOBIN 27 PG (25-34); MEAN CORPUSCULAR HGB CONC 31 G/DL (32-36); MEAN CORPUSCULAR VOLUME 86 FL (80-99); MEAN PLATELET VOLUME 10.2 FL (7.4-10.4); MONOCYTES % (AUTO) 11 % (0-12); PLATELET COUNT 155 10^3/uL (130-400); RED BLOOD COUNT 4.25 10^6/uL (4.35-5.85); RED CELL DISTRIBUTION WIDTH 15.4 % (10.0-14.5); WHITE BLOOD COUNT 12.6 10^3/uL (4.3-11.0)
[2016-09-21 04:20] LABS: EOSINOPHILS % (AUTO) 1 % (0-10); LYMPHOCYTES # (AUTO) 1.2 X 10^3 (1.0-4.0); LYMPHOCYTES % (AUTO) 12 % (12-44); MONOCYTES # (AUTO) 1.1 X 10^3 (0.0-1.0); NEUTROPHILS # (AUTO) 7.7 X 10^3 (1.8-7.8); NEUTROPHILS % (AUTO) 76 % (42-75)
[2016-09-21 04:21] LABS: EOSINOPHILS # (AUTO) 0.1 10^3/uL (0.0-0.3)
[2016-09-21] MEDS: LEVOTHYROXINE 125 MCG (LEVOTHROID) TABLET PO SCH (05:38)
[2016-09-21] MEDS: inSUlin ASPART (NovoLOG) 1 UNIT/0.01 ML (CHARGE PER UNIT) SC SCH ×4 (06:23→20:38)
[2016-09-21] MEDS: OPTH OS SCH ×2 (09:39→20:39)
[2016-09-21] MEDS: HOMATROPINE OS SCH ×2 (09:39→20:39)
[2016-09-21] MEDS: eZETimibe 10 MG (ZETIA) TABLET PO SCH (09:39)
[2016-09-21] MEDS ORDERED: HYDROcodone/APAP 5 MG/325 MG (LORTAB) TAB PO PRN (10:30)
--- NOTE | 2016-09-21 10:43 | Diagnostic Imaging Report ---
INDICATION: Dyspnea. TECHNIQUE: Single view chest 4:36 AM. CORRELATION STUDY: 06/22/2015 FINDINGS: There's developed significant opacification of the left lower hemithorax. Likely largely attributed to underlying effusion along with infiltrate of the left lower lung field. Right lung essentially clear. Heart size enlarged. Vasculature somewhat obscured but appears to be generally stable. Extensive surgical clips over the right chest as well as of the neck. IMPRESSION: 1. Development of what appears to be significant combination of effusion along with consolidation of the left lung. Followup imaging recommended. Dictated by: Dictated on workstation # [id number]
[2016-09-21] MEDS: ENOXAPARIN 40 MG/0.4 ML (LOVENOX) SYR SC SCH (10:51)
--- NOTE | 2016-09-21 12:18 | Progress Note-Standard ---
Standard Progress Note Progress Notes/Assess & Plan Date Seen by Provider: Sep 21, 2016 Time Seen by Provider: 07:20 Progress/Assessment & Plan doing well. Incisions dry. Tolerating soft diet. Final Diagnosis sessile polyp of the cecum KEYLA SHERIDAN MD Sep 21, 2016 12:18 pm
--- NOTE | 2016-09-21 12:37 | Anesthesia-General Post-Op ---
General Patient Condition Mental Status/LOC: Same as Preop Cardiovascular: Satisfactory Nausea/Vomiting: Absent Respiratory: Satisfactory Pain: Controlled Complications: Absent Post Op Complications Complications None Follow Up Care/Instructions Patient Instructions None needed. Anesthesia/Patient Condition Patient Condition Patient is doing well, no complaints, stable vital signs, no apparent adverse anesthesia problems. No complications reported per nursing. ULICES CASTILLO CRNA Sep 21, 2016 12:37
[2016-09-21] MEDS: ATORVASTATIN 40 MG (LIPITOR) TABLET PO SCH (20:38)
[2016-09-22 00:05] VITALS: BP 133/86
[2016-09-22] MEDS: prednisoLONE 1% OPTH (PRED FORTE) 5 ML BTL OS SCH ×5 (00:13→15:44)
[2016-09-22 03:45] VITALS: BP 134/78
[2016-09-22] MEDS: inSUlin ASPART (NovoLOG) 1 UNIT/0.01 ML (CHARGE PER UNIT) SC SCH ×3 (06:16→15:25)
[2016-09-22] MEDS: LEVOTHYROXINE 125 MCG (LEVOTHROID) TABLET PO SCH (06:16)
[2016-09-22 08:00] VITALS: BP 155/82
[2016-09-22] MEDS: eZETimibe 10 MG (ZETIA) TABLET PO SCH (09:12)
[2016-09-22] MEDS: OPTH OS SCH (09:13)
[2016-09-22] MEDS: HOMATROPINE OS SCH (09:13)
[2016-09-22] MEDS: ENOXAPARIN 40 MG/0.4 ML (LOVENOX) SYR SC SCH (11:19)
[2016-09-22 12:00] VITALS: BP 141/76
--- NOTE | 2016-09-22 14:57 | Progress Note-Standard ---
Standard Progress Note Progress Notes/Assess & Plan Date Seen by Provider: Sep 22, 2016 Time Seen by Provider: 14:52 Progress/Assessment & Plan doing well. Incisions dry. Tolerating soft diet. Doing well. Has had BMs. Incisions dry. path : 1.1 cm serrated adenoma. Home Final Diagnosis Serrated adenoma of cecum KEYLA SHERIDAN MD Sep 22, 2016 2:57 pm
[2016-09-22] MEDS ORDERED: HYDR-3820 PO (15:02)
--- NOTE | 2016-09-22 15:03 | Discharge Inst-Simple/Standard ---
Discharge Inst-Standard Discharge Medications New, Converted or Re-Newed RX: RX on Chart Patient Instructions/Follow Up Plan of Care/Instructions/FU: F/U in 10 days. Activity as Tolerated: Yes Discharge Diet: No Restrictions KEYLA SHERIDAN MD Sep 22, 2016 3:03 pm
[2016-09-22 16:06] VITALS: BP 156/90
--- NOTE | 2016-09-22 20:55 | DISCHARGE SUMMARY ---
DATE OF SERVICE: 09/22/2016 DIAGNOSIS: Serrated adenoma of cecum. OPERATION: Robotic-assisted right colon resection with primary anastomosis. Screening colonoscopy revealed a sessile polyp at the cecum requiring segmental resection. This was completed using minimal invasive technique with robotic assistance and intracorporeal anastomosis. She has since made a remarkable recovery. At the time of discharge, she has resumed normal bowel function and her pain is well controlled with oral medications. I have instructed her to return for a followup in about 10 days. Job ID: [id number] DocumentID: [id number] Dictated Date: 09/22/2016 14:59:49 Grey Iron Molder Date: 09/22/2016 20:54:33 Dictated By: KEYLA SHERIDAN MD MTDD
== END 2016-09-22 16:30 | disposition home or self-care (01) | DRG 331 ==
LOC: 3RD 05:57 → SURG 05:58 → EDSTATUS 09:30 → ICU 12:15 → 4TH 09-21 10:20 → ICU 09-21 10:46
PROVIDERS: ADMIT Surgery; ATTEND Surgery
PROC: 8E0W8CZ Robotic Assisted Procedure of Trunk Region, Via Natural or Artificial Opening Endoscopic (ICD-10-PCS; 2016-09-20)
PROC: 0DTF8ZZ Resection of Right Large Intestine, Via Natural or Artificial Opening Endoscopic (ICD-10-PCS; principal; 2016-09-20 07:15)
DX: D12.0 Benign neoplasm of cecum (principal); E11.9 Type 2 diabetes mellitus without complications; F41.9 Anxiety disorder, unspecified; I65.23 Occlusion and stenosis of bilateral carotid arteries; M19.90 Unspecified osteoarthritis, unspecified site; K21.9 Gastro-esophageal reflux disease without esophagitis; E78.00 Pure hypercholesterolemia, unspecified; I10 Essential (primary) hypertension; E03.9 Hypothyroidism, unspecified; K58.9 Irritable bowel syndrome, unspecified; Z85.3 Personal history of malignant neoplasm of breast; Z87.891 Personal history of nicotine dependence
CPT/HCPCS: 36415; 71010; 80048; 82962; 83735; 84100; 85025; 86850; 86900; 86901; 88307; 94664

== ENCOUNTER 2016-10-03 11:18 | Inpatient (IN) | payer MEDICARE, MEDICAID ==
[~2016-10-03] VITALS: Ht 157.5 cm; Wt 81.4 kg
[~2016-10-03 11:18] MED LIST changes: -ACET325T38 PO; -ALBU2.5V4 IH; -HYDR-753 PO; -IPRA3AMP IH; -OMG1KC PO
[2016-10-03 12:17] VITALS: BP 177/86
[2016-10-03 12:30] VITALS: BP 177/86
[2016-10-03] MEDS ORDERED: HYDR-753 PO (13:22)
[2016-10-03] MEDS ORDERED: NS 100 ML (IVPB) BAG IV ONE (14:00)
[2016-10-03] MEDS ORDERED: IOHEXOL 350 MG/ML 150 ML (OMNIPAQUE 350) VIAL IV ONE (14:00)
[2016-10-03 14:08] LABS: BASOPHILS % (AUTO) 0 % (0-10); EOSINOPHILS % (AUTO) 0 % (0-10); LYMPHOCYTES % (AUTO) 12 % (12-44); MEAN CORPUSCULAR HEMOGLOBIN 27 PG (25-34); MEAN CORPUSCULAR HGB CONC 31 G/DL (32-36); MEAN CORPUSCULAR VOLUME 88 FL (80-99); MEAN PLATELET VOLUME 9.3 FL (7.4-10.4); MONOCYTES # (AUTO) 0.5 X 10^3 (0.0-1.0); MONOCYTES % (AUTO) 6 % (0-12); NEUTROPHILS # (AUTO) 7.1 X 10^3 (1.8-7.8); NEUTROPHILS % (AUTO) 82 % (42-75); PLATELET COUNT 224 10^3/uL (130-400); RED BLOOD COUNT 3.61 10^6/uL (4.35-5.85); RED CELL DISTRIBUTION WIDTH 15.5 % (10.0-14.5); WHITE BLOOD COUNT 8.6 10^3/uL (4.3-11.0)
--- NOTE | 2016-10-03 14:12 | Diagnostic Imaging Report ---
PROCEDURE: CT chest with and without contrast. TECHNIQUE: Multiple contiguous axial images were obtained through the chest before and after administration of intravenous contrast. INDICATION: Shortness of breath. FINDINGS: The plain film examination of the chest performed earlier today noted that the density in the left lung had increased since the prior exam of 09/21/2016. On this study, there is now a large left pleural effusion. Most of the left lower lobe and lingula are collapsed about the left hilum, and there is only a small portion of the left upper lung still aerated. The heart and mediastinum also appear slightly shifted to the right due to the large volume of fluid in the left thorax. The heart size is within normal limits. The aorta is not abnormally dilated, and there is no sign of a dissection. There is no defect within the pulmonary arteries to indicate a pulmonary embolus. There is also small right pleural effusion. The effusion measures 1.2 cm in depth. The right lung is otherwise generally clear. There is no mediastinal or hilar adenopathy. The thyroid gland was not well visualized. There is thickening of the skin over the right breast, and there are postsurgical changes consistent with a prior right lumpectomy. These findings are similar to the prior CT chest exam of 03/10/2012. There is no obvious mass involving the left breast. The sections through the upper abdomen fail to show any sign of an acute abnormality. The roughly 2 cm low-density mass associated with the left adrenal gland seen previously is again evident and no different. Also as noted on the prior exam, the gallbladder is surgically absent. The bone windows show no sign of a fracture or of a destructive lesion. IMPRESSION: 1. There is a large left pleural effusion. Most of the left lower lobe and lingula are collapsed about the left hilum, and there is only a small portion of the left upper lung still aerated. The heart and the mediastinum are also slightly shifted to the right. 2. There is a small right pleural effusion noted, but the right lung is generally clear. 3. There is no acute cardiopulmonary abnormality identified otherwise. 4. There are postsurgical and post-therapeutic changes involving the right breast. 5. These results were discussed with Dr. Payne. Dictated by: Dictated on workstation # [id number]
[2016-10-03 14:32] LABS: ALANINE AMINOTRANSFERASE 18 U/L (0-55); ALBUMIN 3.5 GM/DL (3.2-4.5); ANION GAP 8 MMOL/L (5-14); ASPARTATE AMINO TRANSFERASE 18 U/L (5-34); BILIRUBIN,TOTAL 0.9 MG/DL (0.1-1.0); BLOOD UREA NITROGEN 12 MG/DL (7-18); BUN/CREATININE RATIO 19; CALCIUM 8.7 MG/DL (8.5-10.1); CARBON DIOXIDE 28 MMOL/L (21-32); CHLORIDE 104 MMOL/L (98-107); CREATININE SERUM 0.62 MG/DL (0.60-1.30); GFR ESTIMATED > 60; GLUCOSE 133 MG/DL (70-105); POTASSIUM 3.7 MMOL/L (3.6-5.0); SODIUM 140 MMOL/L (135-145); TOTAL PROTEIN 6.2 GM/DL (6.4-8.2)
[2016-10-03] MEDS ORDERED: RT-ALBUTEROL SULF 2.5 MG/3 ML PRE-MIX VIAL IH SCH (14:45)
[2016-10-03] MEDS ORDERED: RT-ALBUTEROL SULF 2.5 MG/3 ML PRE-MIX VIAL IH PRN (15:00)
--- NOTE | 2016-10-03 15:31 | Pulmonary Consultation ---
History of Present Illness History of Present Illness Date of Consultation 10/03/16 15:29 Date of Admission Allergies and Home Medications Allergies Coded Allergies: latex (Verified Allergy, Unknown, 08/31/16) Home Medications Aspirin 81 Mg Tablet.dr, 81 MG PO 1700, (Reported) Atorvastatin Calcium 40 Mg Tablet, 40 MG PO HS, (Reported) Cholecalciferol (Vitamin D3) 2,000 Unit Tablet, 2,000 UNIT PO DAILY, (Reported) Dicyclomine HCl 10 Mg Capsule, 10 MG PO QID, (Reported) Ezetimibe 10 Mg Tablet, 10 MG PO DAILY, (Reported) Gabapentin 300 Mg Capsule, 300 MG PO TID, (Reported) Glipizide 10 Mg Tablet, 10 MG PO BID, (Reported) Homatropine HBr 5 Ml Drops, 1 DROP OS BID, (Reported) Hydrocodone/Acetaminophen 1 Each Tablet, 1 TAB PO Q4H PRN for PAIN-MODERATE, ( Reported) Ibuprofen 800 Mg Tablet, 800 MG PO TID, (Reported) Levothyroxine Sodium 125 Mcg Tablet, 125 MCG PO DAILY, (Reported) Liraglutide 0.6 Mg/0.1 Ml Pen.injctr, 1.8 MG SQ HS, (Reported) Magnesium Oxide 400 Mg Tablet, 400 MG PO BID, (Reported) Metformin HCl 500 Mg Tablet, 1,000 MG PO BID, (Reported) TAKES 2 (500 MG) TABLETS Mirabegron 50 Mg Tab.er.24h, 50 MG PO 1200, (Reported) Montelukast Sodium 10 Mg Tablet, 10 MG PO HS, (Reported) [place]-3 Fatty Acids/Fish Oil 1 Each Capsule, 1,000 MG PO TID, (Reported) Omeprazole 20 Mg Capsule.dr, 20 MG PO BID, (Reported) Oxybutynin Chloride 15 Mg Tab.er.24, 15 MG PO DAILY, (Reported) Prednisolone Acetate 1 Ml Drops.susp, 1 DROP OS 6 TIMES PER DAY, (Reported) Sertraline HCl 25 Mg Tablet, 25 MG PO HS, (Reported) Past Ikubgfh-Svleyi-Rcrrcl Hx Patient Social History Alcohol Use: Denies Use Recreational Drug Use: No Smoking Status: Former Smoker Type Used: Cigarettes Former Smoker/When Quit: Dec 25, 2006 2nd Hand Smoke Exposure: No Recent Foreign Travel: No Contact w/Someone Who Travel: No Recent Infectious Disease Expo: No Recent Hopitalizations: No Physical Abuse Screen: No Sexual Abuse: No Immunizations Up To Date Tetanus Booster (TDap): Unknown PED Vaccines UTD: No Date of Pneumonia Vaccine: Jan 26, 2012 Date of Influenza Vaccine: Nov 19, 2014 Seasonal Allergies Seasonal Allergies: Yes Surgeries HX Surgeries: Yes Surgeries: Breast, Eye Surgery, Gallbladder, 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, Orthopedic, Renal, Thyroidectomy Respiratory Hx Respiratory Disorders: No Cardiovascular Hx Cardiac Disorders: Yes (CARDIAC CATH 2010; CAROTID DISEASE) Cardiac Disorders: Chronic Edema/Swelling, High Cholesterol, Hypertension, Peripheral Vascular Neurological Hx Neurological Disorders: Yes Neurological Disorders: Neuropathy Reproductive System Hx Reproductive Disorders: No Sexually Transmitted Disease: No HIV/AIDS: No Female Reproductive Disorders: Denies 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, 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 Genitourinary Hx Genitourinary Disorders: Yes (INCONTINENCE) Genitourinary Disorders: Kidney Stones Gastrointestinal Hx Gastrointestinal Disorders: Yes Gastrointestinal Disorders: Gastroesophageal Reflux, Diverticulosis, Polyps, Irritable Bowel Musculoskeletal Hx Musculoskeletal Disorders: Yes (LYMPHEDEMA OF RIGHT ARM; BILATERAL ARM FX'S ) Musculoskeletal Disorders: Degenerate Disk Disease, Arthritis, Chronic Back Pain, Fractures Endocrine Hx Endocrine Disorders: Yes ( S/P THYROIDECTOMY; OBESITY) Endocrine Disorders: Hypothyroidsim, Diabetes, Non-Insulin dep HEENT HX ENT Disorders: Yes HEENT Disorders: Cataract, Dysphagia Loss of Vision: Bilateral Hearing Impairment: Denies Cancer Hx Cancer: Yes (S/P RIGHT LUMPECTOMY & LYMPH NODE DISSECTION 2008) Cancer: Breast Psychosocial Hx Psychiatric Problems: Yes Behavioral Health Disorders: Sleep Difficulties, Anxiety, Depression Integumentary HX Skin/Integumentary Disorder: Yes (hx of CELLULITIS OF BREAST/CHEST WALL; ) Skin/Integumentary Disorders: Herpes Blood Transfusions Hx Blood Disorders: No Adverse Reaction to a Blood Tr: No Family Medical History Family Medial History: Patient reports no known family medical history. Exam Exam Vital Signs Date Time Temp Pulse Resp B/P (MAP) Pulse Ox O2 Delivery O2 Flow Rate FiO2 10/03/16 12:30 97 95 2 10/03/16 12:30 95 Room Air 2.00 10/03/16 12:20 95 Nasal Cannula 2.00 10/03/16 12:17 100.2 97 24 177/86 90 Room Air Results Lab Laboratory Tests 10/03/16 13:55 Assessment/Plan Assessment/Plan -Large left pleural effusion -Will do thoracentesis and send for analysis Dyspnea secondary to left effusion 254 Clinical Quality Measures DVT/VTE Risk/Contraindication: Risk Factor Score Per Nursin RFS Level Per Nursing on Admit: 3=High MERCEDES GARCIA DO Oct 03, 2016 15:31
[2016-10-03 15:32] VITALS: BP 181/94
--- NOTE | 2016-10-03 16:16 | Pulmonary Procedures ---
Pulmonary Procedures Date of Procedure Date of Service: Oct 03, 2016 Procedure: Left US guided complex thoracentesis Preop DX: Left pleural effusion post op DX: Same ([1200]cc of Dark yellow fluid obtained) Complications: None After informed consent obtained US was used to localize pleural fluid. Pt has [ bilateral L>R] pleural effusions. Skin was anesthetized at approximately the 10th ICS posterior axillary line. Thoracentesis needle was advanced through the 10th ICS posterior axillary line. Needle was removed and catheter left in place.1200cc of yellow fluid obtained using vacuum bottles. Catheter was then removed. Pt tolerated procedure well. No complications noted. MERCEDES GARCIA DO Oct 03, 2016 16:16
--- NOTE | 2016-10-03 16:43 | Diagnostic Imaging Report ---
EXAMINATION: Portable erect AP chest at 04:27 p.m. INDICATION: Post thoracentesis. FINDINGS: Reportedly, in the interval since the exam performed earlier today, the patient has undergone thoracentesis on the left. The left lung does seem better aerated than on the prior exam although the left mid lung and left lung base remain opacified. There is no sign of pneumothorax on the left. The right lung remains generally clear. The right hilum is prominent but no different than on the prior exam. The heart is difficult to assess but seems stable. The mediastinum is not widened. The osseous structures are intact. IMPRESSION: 1. Since the prior exam, the patient has undergone thoracentesis on the left the left lung does seem better aerated, but the left mid lung and left lower lobe are still opacified by atelectasis/infiltrate and fluid. A follow-up exam will be recommended for further study. 2. There is no sign of a pneumothorax on the left. Dictated by: Dictated on workstation # [id number]
[2016-10-03 17:47] LABS: GLUCOSE,BODY FLUID 101 MG/DL; LDH,BODY FLUID 648 U/L; TOTAL PROTEIN,BODY FLUID 3.9 G/DL
[2016-10-03] MEDS: RT-ALBUTEROL SULF 2.5 MG/3 ML PRE-MIX VIAL IH SCH ×2 (19:12→21:42)
[2016-10-03] MEDS ORDERED: HYDROcodone/APAP 10 MG/325 MG (LORTAB) TAB PO PRN (19:15)
[2016-10-03 20:07] VITALS: BP 143/68
[2016-10-03] MEDS ORDERED: PATIENT MAY USE OWN MEDS, ALL MC SCH (20:15)
[2016-10-03] MEDS ORDERED: MONTELUKAST 10 MG (SINGULAIR) TAB PO SCH (21:00)
[2016-10-03] MEDS ORDERED: [UNRECOGNIZED DRUG - OTHER] OS SCH (21:00)
[2016-10-03] MEDS ORDERED: ATORVASTATIN 40 MG (LIPITOR) TABLET PO SCH (21:00)
[2016-10-03] MEDS ORDERED: SERTRALINE 50 MG (ZOLOFT) TABLET PO SCH (21:00)
[2016-10-03] MEDS ORDERED: OMEPRAZOLE 20 MG (PriLOSEC) CAP NON-FORMULARY PO SCH (21:00)
[2016-10-03] MEDS ORDERED: NON-FORMULARY MEDICATION 1 EA EA (Sertraline HCl 25 MG) PO SCH (21:00)
[2016-10-03] MEDS: PANTOPRAZOLE 20 MG TABLET (PROTONIX) PO SCH (21:26)
[2016-10-03] MEDS: DICYCLOMINE 10 MG (BENTYL) CAP PO SCH (21:27)
[2016-10-03] MEDS: GABAPENTIN 300 MG (NEURONTIN) CAP PO SCH (21:27)
[2016-10-03] MEDS: OPTH OP SCH (21:28)
[2016-10-03] MEDS: HOMATROPINE OP SCH (21:28)
[2016-10-04 00:05] VITALS: BP 147/81
[2016-10-04] MEDS: RT-ALBUTEROL SULF 2.5 MG/3 ML PRE-MIX VIAL IH SCH ×3 (02:43→10:18)
[2016-10-04 04:00] VITALS: BP 151/84
[2016-10-04] MEDS: PANTOPRAZOLE 20 MG TABLET (PROTONIX) PO SCH (06:17)
[2016-10-04] MEDS ORDERED: LEVOTHYROXINE 125 MCG (LEVOTHROID) TABLET PO SCH (06:30)
[2016-10-04] MEDS ORDERED: metFORMIN 500 MG (GLUCOPHAGE) TAB PO SCH (07:00)
--- NOTE | 2016-10-04 07:30 | Pulmonary Progress Note ---
Subjective Time Seen by Provider: 08:08 Subjective/Events-last exam Pt feels improved post thoracentesis. She has no complaints. Exam Exam Vital Signs Date Time Temp Pulse Resp B/P (MAP) Pulse Ox O2 Delivery O2 Flow Rate FiO2 10/04/16 06:20 95 Nasal Cannula 1.00 10/04/16 04:00 97.8 77 18 151/84 98 Nasal Cannula 1.00 10/04/16 02:43 95 Nasal Cannula 1.50 10/04/16 00:05 98.0 89 18 147/81 96 Nasal Cannula 2.00 10/03/16 21:42 93 Nasal Cannula 1.50 10/03/16 20:20 Nasal Cannula 2.00 10/03/16 20:07 97.7 83 18 143/68 96 Nasal Cannula 2.00 10/03/16 19:12 98 Nasal Cannula 1.50 10/03/16 16:44 Nasal Cannula 2.00 10/03/16 15:32 97.8 81 20 181/94 96 Nasal Cannula 1.50 10/03/16 12:30 97 95 2 10/03/16 12:30 95 Room Air 2.00 10/03/16 12:20 95 Nasal Cannula 2.00 10/03/16 12:17 100.2 97 24 177/86 90 Room Air General Appearance: No Apparent Distress, WD/WN HEENT: PERRL/EOMI, TMs Normal, Pharynx Normal Neck: Full Range of Motion, Normal Inspection Respiratory: Chest Non Tender, No Accessory Muscle Use, No Respiratory Distress , Decreased Breath Sounds Cardiovascular: Regular Rate, Rhythm, No Edema, No Gallop Gastrointestinal: normal bowel sounds, non tender, soft Extremity: Normal Capillary Refill Neurologic/Psychiatric: Alert, Oriented x3 Skin: Normal Color Lymphatic: No Adenopathy Results Lab Laboratory Tests 10/03/16 13:55 Assessment/Plan Assessment/Plan -Large left pleural effusion with hx of breast cancer r/o malignant effusion -S/p thoracentesis with 1250 cc of dark yellow fluid being removed. Thoracentesis was stopped early secondary to discomfort/pain -Fluid sent for analysis and cytology -PT may need Pleurx catheter -CXR pending for this AM -Repeat CBC, CMP, and BNP Dyspnea secondary to left effusion 232 Clinical Quality Measures DVT/VTE Risk/Contraindication: Risk Factor Score Per Nursin RFS Level Per Nursing on Admit: 3=High MERCEDES GARCIA DO Oct 04, 2016 07:30
[2016-10-04 07:51] VITALS: BP 157/88
--- NOTE | 2016-10-04 07:57 | Diagnostic Imaging Report ---
INDICATION: Pleural effusion. Compared 8:15 AM. FINDINGS: Subpulmonic pleural fluid moderate/ large in volume showed no substantial change. New left suprahilar infiltrate or atelectasis reflects change. The right lung and pleural space stable and negative. IMPRESSION: Unchanged left pleural effusion, however, new suprahilar infiltrate or atelectasis on the left has developed. Dictated by: Dictated on workstation # [id number]
[2016-10-04 08:08] LABS: BASOPHILS % (AUTO) 0 % (0-10); EOSINOPHILS % (AUTO) 0 % (0-10); LYMPHOCYTES # (AUTO) 0.8 X 10^3 (1.0-4.0); LYMPHOCYTES % (AUTO) 11 % (12-44); MEAN CORPUSCULAR HEMOGLOBIN 27 PG (25-34); MEAN CORPUSCULAR HGB CONC 31 G/DL (32-36); MEAN CORPUSCULAR VOLUME 88 FL (80-99); MEAN PLATELET VOLUME 9.7 FL (7.4-10.4); MONOCYTES # (AUTO) 0.6 X 10^3 (0.0-1.0); MONOCYTES % (AUTO) 7 % (0-12); NEUTROPHILS # (AUTO) 6.4 X 10^3 (1.8-7.8); NEUTROPHILS % (AUTO) 81 % (42-75); PLATELET COUNT 199 10^3/uL (130-400); RED BLOOD COUNT 3.83 10^6/uL (4.35-5.85); RED CELL DISTRIBUTION WIDTH 15.4 % (10.0-14.5); WHITE BLOOD COUNT 7.8 10^3/uL (4.3-11.0)
[2016-10-04 08:21] LABS: ALANINE AMINOTRANSFERASE 17 U/L (0-55); ALBUMIN 3.7 GM/DL (3.2-4.5); ANION GAP 12 MMOL/L (5-14); ASPARTATE AMINO TRANSFERASE 16 U/L (5-34); BILIRUBIN,TOTAL 1.2 MG/DL (0.1-1.0); BLOOD UREA NITROGEN 7 MG/DL (7-18); BUN/CREATININE RATIO 11; CALCIUM 8.9 MG/DL (8.5-10.1); CARBON DIOXIDE 28 MMOL/L (21-32); CHLORIDE 101 MMOL/L (98-107); CREATININE SERUM 0.63 MG/DL (0.60-1.30); GFR ESTIMATED > 60; GLUCOSE 218 MG/DL (70-105); MAGNESIUM 1.2 MG/DL (1.8-2.4); PHOSPHORUS 3.8 MG/DL (2.3-4.7); POTASSIUM 3.1 MMOL/L (3.6-5.0); SODIUM 141 MMOL/L (135-145); TOTAL PROTEIN 6.5 GM/DL (6.4-8.2)
[2016-10-04] MEDS: GABAPENTIN 300 MG (NEURONTIN) CAP PO SCH (08:27)
[2016-10-04] MEDS: DICYCLOMINE 10 MG (BENTYL) CAP PO SCH (08:27)
[2016-10-04] MEDS: HOMATROPINE OP SCH (08:27)
[2016-10-04] MEDS: OPTH OP SCH (08:27)
[2016-10-04] MEDS ORDERED: eZETimibe 10 MG (ZETIA) TABLET PO SCH (09:00)
[2016-10-04] MEDS ORDERED: KCL 20 MEQ TAB (K-DUR) PO NR (09:30)
[2016-10-04] MEDS ORDERED: MAGNESIUM OXIDE (MAG-OX)400 MG TAB PO NR (09:30)
[2016-10-04] MEDS ORDERED: ALBU2.5V4 IH (10:55)
[2016-10-04] MEDS ORDERED: IPRA3AMP IH (11:10)
--- NOTE | 2016-10-04 11:17 | Discharge Instructions ---
Discharge [facility] Discharge Medications New, Converted or Re-Newed RX: RX Given to Pt/Family New Medications: Ipratropium/Albuterol Sulfate (Iprat-Albut 0.5-3(2.5) mg/3 ml) 3 Ml Ampul.neb 3 ML IH Q6H PRN for SHORTNESS OF BREATH for 30 Days, EACH Albuterol Sulfate (Albuterol Sulfate) 2.5 Mg/3 Ml Vial.neb 2.5 MG IH RTQ4HR, #30 INHALER Continued Medications: Aspirin (Aspirin EC) 81 Mg Tablet.dr 81 MG PO 1700 Atorvastatin Calcium (Atorvastatin Calcium) 40 Mg Tablet 40 MG PO HS Cholecalciferol (Vitamin D3) (Vitamin D) 2,000 Unit Tablet 2000 UNIT PO DAILY, TAB Dicyclomine HCl (Dicyclomine HCl) 10 Mg Capsule 10 MG PO QID Ezetimibe (Ezetimibe) 10 Mg Tablet 10 MG PO DAILY Gabapentin (Gabapentin) 300 Mg Capsule 300 MG PO TID Glipizide (Glipizide) 10 Mg Tablet 10 MG PO BID Homatropine HBr (Homatropine Hydrobromide) 5 Ml Drops 1 DROP OS BID, DROPS Hydrocodone/Acetaminophen ([place] 10-325 Tablet) 1 Each Tablet 1 TAB PO Q4H PRN for PAIN-MODERATE, TAB Ibuprofen (Ibuprofen) 800 Mg Tablet 800 MG PO TID Levothyroxine Sodium (Levothyroxine Sodium) 125 Mcg Tablet 125 MCG PO DAILY Liraglutide (Victoza 3-Klaus) 0.6 Mg/0.1 Ml Pen.injctr 1.8 MG SQ HS Magnesium Oxide (Magox 400) 400 Mg Tablet 400 MG PO BID, TAB Metformin HCl (Metformin HCl) 500 Mg Tablet 1000 MG PO BID TAKES 2 (500 MG) TABLETS Mirabegron (Myrbetriq) 50 Mg Tab.er.24h 50 MG PO 1200 Montelukast Sodium (Montelukast Sodium) 10 Mg Tablet 10 MG PO HS [place]-3 Fatty Acids/Fish Oil (Fish Oil 1,000 Mg Softgel) 1 Each Capsule 1000 MG PO TID Omeprazole (Omeprazole) 20 Mg Capsule.dr 20 MG PO BID Oxybutynin Chloride (Oxybutynin Chloride ER) 15 Mg Tab.er.24 15 MG PO DAILY Prednisolone Acetate (Pred Forte) 1 Ml Drops.susp 1 DROP OS 6 TIMES PER DAY, DROPS Sertraline HCl (Sertraline HCl) 25 Mg Tablet 25 MG PO HS Patient Instructions Goal/Follow Up Appt: You have a followup with Brandie Jaquez this SundayOct 06 @ 1020 AM You will then see Dr Pfeiffer in 2 weeks Patient Instructions: Schedule your breathing treatments at least 3 times per day for the next 4-5 days Make sure that you use your Inspiratory Spirometry at least 6 times per day Return to [facility] For: - Worsening shortness of breath - Fever or chills - Weakness Activity & Diet Discharge Diet: Cardiac Diet Activity as Tolerated: Yes Copy Copies To 1: Brandie PEÑA HOLLY R MD Oct 04, 2016 11:17
[2016-10-04] MEDS ORDERED: NON-FORMULARY MEDICATION 1 EA EA (Mirabegron (Myrbetriq) 50 MG) PO SCH (12:00)
[2016-10-04 12:48] VITALS: BP 128/76
--- NOTE | 2016-10-04 14:47 | Short Stay Summary ---
HPI History of Present Illness: 70 yo F sent to the hospital by Dr Payne for new L pleural effusion and shortness of breath. Patient states that she was short of breath for the last 4- 5 days which is a new complaint. + non productive cough. Shortness of breath is worse with activity. Denies any fever or chills. Denies any pain. Uses walker for ambulation. Had thoracentesis yesterday done by Dr Pfeiffer. Patient states that she feels better this AM. Satting 100% on 1L oxygen. Denies any pain at puncture site. States that she is breathing better. 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 Alcohol Use: Denies Use Recreational Drug Use: No Smoking Status: Former Smoker Former smoker/When Quit: Dec 25, 2006 Type Used: Cigarettes 2nd Hand Smoke Exposure: No Recent Foreign Travel: No Contact w/other who traveled: No Recent Hopitalizations: No Recent Infectious Disease Expo: No Physical Abuse Screen: No Sexual Abuse: No Immunizations Up To Date Tetanus Booster (TDap): Unknown Date of Pneumonia Vaccine: Jan 26, 2012 Date of Influenza Vaccine: Nov 19, 2014 Past Medical History Breast cancer, diagnosed 2008, followed by Dr Trinh DMT2 HTN HL Hypothyroidism Peripheral neuropathy Family Medical History Family History: Patient reports no known family medical history. Review of Systems ([facility]) Constitutional: no symptoms reported, No chills, No fever, No weakness EENTM: no symptoms reported Respiratory: dyspnea on exertion, No hemoptysis, short of breath, No wheezing Cardiovascular: no symptoms reported, No chest pain, No edema, No palpitations Gastrointestinal: no symptoms reported, No abdominal pain, No constipation, No diarrhea, No nausea, No vomiting Genitourinary: no symptoms reported, No dysuria, No frequency, No hematuria : No Musculoskeletal: no symptoms reported Skin: no symptoms reported, No lesions, No rash Psychiatric/Neurological: No Symptoms Reported, Denies Headache, Denies Tingling, Denies Weakness Reviewed Test Results Reviewed Test Results Lab Laboratory Tests Test 10/03/16 16:00 10/04/16 07:55 Range/Units Body Fluid Source PLEURAL Body Fluid Color YELLOW Body Fluid Appearance MOD CLDY Body Fluid WBC 2000 /uL Body Fluid RBC 7150 /uL Body Fluid Polynuclear WBCs 1 % Body Fluid Mononuclear WBCs 0 % Body Fluid Lymphocytes 18 % Body Fluid Other Cells 81 % Body Fluid Glucose 101 MG/DL Body Fluid Total Protein 3.9 G/DL Body Fluid Lactate Dehydrogenase 648 U/L White Blood Count 7.8 4.3-11.0 10^3/uL Red Blood Count 3.83 L 4.35-5.85 10^6/uL Hemoglobin 10.5 L 11.5-16.0 G/DL Hematocrit 34 L 35-52 % Mean Corpuscular Volume 88 80-99 FL Mean Corpuscular Hemoglobin 27 25-34 PG Mean Corpuscular Hemoglobin Concent 31 L 32-36 G/DL Red Cell Distribution Width 15.4 H 10.0-14.5 % Platelet Count 199 130-400 10^3/uL Mean Platelet Volume 9.7 7.4-10.4 FL Neutrophils (%) (Auto) 81 H 42-75 % Lymphocytes (%) (Auto) 11 L 12-44 % Monocytes (%) (Auto) 7 0-12 % Eosinophils (%) (Auto) 0 0-10 % Basophils (%) (Auto) 0 0-10 % Neutrophils # (Auto) 6.4 1.8-7.8 X 10^3 Lymphocytes # (Auto) 0.8 L 1.0-4.0 X 10^3 Monocytes # (Auto) 0.6 0.0-1.0 X 10^3 Eosinophils # (Auto) 0.0 0.0-0.3 10^3/uL Basophils # (Auto) 0.0 0.0-0.1 10^3/uL Sodium Level 141 135-145 MMOL/L Potassium Level 3.1 L 3.6-5.0 MMOL/L Chloride Level 101 98-107 MMOL/L Carbon Dioxide Level 28 21-32 MMOL/L Anion Gap 12 5-14 MMOL/L Blood Urea Nitrogen 7 7-18 MG/DL Creatinine 0.63 0.60-1.30 MG/DL Estimat Glomerular Filtration Rate > 60 BUN/Creatinine Ratio 11 Glucose Level 218 H 70-105 MG/DL Calcium Level 8.9 8.5-10.1 MG/DL Phosphorus Level 3.8 2.3-4.7 MG/DL Magnesium Level 1.2 L 1.8-2.4 MG/DL Total Bilirubin 1.2 H 0.1-1.0 MG/DL Aspartate Amino Transf (AST/SGOT) 16 5-34 U/L Alanine Aminotransferase (ALT/SGPT) 17 0-55 U/L Alkaline Phosphatase 67 40-136 U/L B-Type Natriuretic Peptide 64.6 <100.0 PG/ML Total Protein 6.5 6.4-8.2 GM/DL Albumin 3.7 3.2-4.5 GM/DL Radiology Date of Exam: 10/03/16 CT CHEST W WO PROCEDURE: CT chest with and without contrast. TECHNIQUE: Multiple contiguous axial images were obtained through the chest before and after administration of intravenous contrast. INDICATION: Shortness of breath. FINDINGS: The plain film examination of the chest performed earlier today noted that the density in the left lung had increased since the prior exam of 09/21/2016. On this study, there is now a large left pleural effusion. Most of the left lower lobe and lingula are collapsed about the left hilum, and there is only a small portion of the left upper lung still aerated. The heart and mediastinum also appear slightly shifted to the right due to the large volume of fluid in the left thorax. The heart size is within normal limits. The aorta is not abnormally dilated, and there is no sign of a dissection. There is no defect within the pulmonary arteries to indicate a pulmonary embolus. There is also small right pleural effusion. The effusion measures 1.2 cm in depth. The right lung is otherwise generally clear. There is no mediastinal or hilar adenopathy. The thyroid gland was not well visualized. There is thickening of the skin over the right breast, and there are postsurgical changes consistent with a prior right lumpectomy. These findings are similar to the prior CT chest exam of 03/10/2012. There is no obvious mass involving the left breast. The sections through the upper abdomen fail to show any sign of an acute abnormality. The roughly 2 cm low-density mass associated with the left adrenal gland seen previously is again evident and no different. Also as noted on the prior exam, the gallbladder is surgically absent. The bone windows show no sign of a fracture or of a destructive lesion. IMPRESSION: 1. There is a large left pleural effusion. Most of the left lower lobe and lingula are collapsed about the left hilum, and there is only a small portion of the left upper lung still aerated. The heart and the mediastinum are also slightly shifted to the right. 2. There is a small right pleural effusion noted, but the right lung is generally clear. 3. There is no acute cardiopulmonary abnormality identified otherwise. 4. There are postsurgical and post-therapeutic changes involving the right breast. 5. These results were discussed with Dr. Payne. Date of Exam: 10/04/16 CHEST 1 VIEW, AP/PA ONLY INDICATION: Pleural effusion. Compared 8:15 AM. FINDINGS: Subpulmonic pleural fluid moderate/ large in volume showed no substantial change. New left suprahilar infiltrate or atelectasis reflects change. The right lung and pleural space stable and negative. IMPRESSION: Unchanged left pleural effusion, however, new suprahilar infiltrate or atelectasis on the left has developed Physical Exam-([facility]) Physical Exam Vital Signs VS - Last 72 Hours, by Label 10/03/16 10/03/16 10/03/16 10/03/16 12:17 12:20 12:30 12:30 Temp 100.2 Pulse 97 97 Resp 24 B/P (MAP) 177/86 Pulse Ox 90 95 95 95 O2 Delivery Room Air Nasal Cannula Room Air O2 Flow Rate 2.00 2.00 FiO2 2 10/03/16 10/03/16 10/03/16 10/03/16 15:32 16:44 19:12 20:07 Temp 97.8 97.7 Pulse 81 83 Resp 20 18 B/P (MAP) 181/94 143/68 Pulse Ox 96 98 96 O2 Delivery Nasal Cannula Nasal Cannula Nasal Cannula Nasal Cannula O2 Flow Rate 1.50 2.00 1.50 2.00 10/03/16 10/03/16 10/04/16 10/04/16 20:20 21:42 00:05 02:43 Temp 98.0 Pulse 89 Resp 18 B/P (MAP) 147/81 Pulse Ox 93 96 95 O2 Delivery Nasal Cannula Nasal Cannula Nasal Cannula Nasal Cannula O2 Flow Rate 2.00 1.50 2.00 1.50 10/04/16 10/04/16 10/04/16 10/04/16 04:00 06:20 07:51 08:30 Temp 97.8 97.8 Pulse 77 106 Resp 18 22 B/P (MAP) 151/84 157/88 Pulse Ox 98 95 100 100 O2 Delivery Nasal Cannula Nasal Cannula Nasal Cannula Nasal Cannula O2 Flow Rate 1.00 1.00 1.00 1.00 10/04/16 10/04/16 10/04/16 10:20 12:48 13:30 Temp 99.3 Pulse 100 Resp 22 B/P (MAP) 128/76 Pulse Ox 91 96 O2 Delivery Room Air Room Air Capillary Refill : General Appearance: WD/WN, no apparent distress HEENT: PERRL/EOMI Neck: non-tender, full range of motion Respiratory: chest non-tender, normal breath sounds, no respiratory distress, no accessory muscle use, decreased breath sounds (Left base) Cardiovascular: normal peripheral pulses, regular rate, rhythm, no edema, no murmur Gastrointestinal: normal bowel sounds, non tender, soft, no organomegaly Back: normal inspection, other (Healing surgical site, no signs of secondary infection) Extremities: normal range of motion, non-tender, normal inspection, no pedal edema, no calf tenderness, normal capillary refill Neurologic/Psychiatric: infection control preventionist II-XII nml as tested, no motor/sensory deficits, alert, normal mood/affect, oriented x 3 Skin: normal color, warm/dry Lymphatic: no adenopathy Short Stay Diagnosis Discharge Diagnosis-Short Stay Admission Diagnosis Acute Shortness of breath with hypoxia Left Pleural effusion H/o Breast Ca Final Discharge Diagnosis See Above Conclusion Plan 70 yo F with h/o breast cancer that presents with new onset Left pleural effusion. CT chest showed worsening accumulation of fluid. Dr Pfeiffer consulted and took patient for thoracentesis and set fluid off for analysis. Concerning for recurrent breast cancer. Patients symptoms much improved after procedure. CXR in AM was stable. Per Dr Pfeiffer if fluid reaccumulates then we would need to consider a Pleurx catheter. Patient was weaned off oxygen and maintained her saturations. She has close followup with Brandie Jaquez on Sunday and will get repeat imaging Clinical Quality Measures DVT/VTE Risk/Contraindication: Risk Factor Score Per Nursin RFS Level Per Nursing on Admit: 3=High Copy Copies To 1: [facility], KHUSHI Escalante MD Oct 04, 2016 14:47
[2016-10-04] MEDS ORDERED: ASPIRIN E.C. 81 MG (ECOTRIN) TAB PO SCH (17:00)
== END 2016-10-04 13:30 | disposition home or self-care (01) | DRG 188 ==
LOC: 4TH 11:49
PROVIDERS: ADMIT Family Medicine; ATTEND Family Medicine
PROC: 0W9B3ZX Drainage of Left Pleural Cavity, Percutaneous Approach, Diagnostic (ICD-10-PCS; principal; 2016-10-03)
DX: J90 Pleural effusion, not elsewhere classified (principal); E11.9 Type 2 diabetes mellitus without complications; Z79.84 Long term (current) use of oral hypoglycemic drugs; I10 Essential (primary) hypertension; K21.9 Gastro-esophageal reflux disease without esophagitis; E03.9 Hypothyroidism, unspecified; E78.5 Hyperlipidemia, unspecified; G62.9 Polyneuropathy, unspecified; Z85.3 Personal history of malignant neoplasm of breast; Z87.891 Personal history of nicotine dependence
CPT/HCPCS: 36415; 71010; 71270; 80053; 82945; 83615; 83735; 83880; 84100; 84157; 85025; 87070; 87205; 89051; 94640; 94664; 94760; 94761

== ENCOUNTER → 2016-10-03 | Outpatient (CLI) | payer MEDICARE, MEDICAID ==
[~2016-10-03] MED LIST changes: +ACET325T38 PO; +ALBU2.5V4 IH; +EZET10TA27 PO; +HOMA5DRO10 OS; +HYDR-3820 PO; +HYDR-753 PO; +IPRA3AMP IH; +OMG1KC PO; +PRED1DRO OS
--- NOTE | 2016-10-03 11:38 | Diagnostic Imaging Report ---
EXAMINATION: PA and lateral chest obtained at 10:30 on the . INDICATION: Respiratory distress. In the interval since the prior exam of 09/21/16 the appearance of the chest has worsened as the density in the left lung has increased. I suspect that this is secondary to pneumonia/atelectasis and pleural fluid. The left apex remains relatively clear as does the right lung. The heart is partially obscured but seems stable. The right hilum does appear more prominent than on the prior study. This may in part be due to rotation. The numerous surgical clips overlying the right thorax seen previously are again evident and no different. The mediastinum is not widened. The osseous structures are intact. IMPRESSION: 1. The appearance of the chest has worsened since the prior study as there has been increase in atelectasis/infiltrate and fluid involving the left lung. If further study is desired, then CT of the chest would be recommended. 2. These results were discussed with Dr. Payne. Dictated by: Dictated on workstation # [id number]
== END ==
LOC: RAD 10:01
PROVIDERS: ATTEND Surgery
DX: R91.8 Other nonspecific abnormal finding of lung field (principal); Z98.890 Other specified postprocedural states
CPT/HCPCS: 71020

== ENCOUNTER → 2016-10-06 | Outpatient (CLI) | payer MEDICARE, MEDICAID ==
[~2016-10-06] MED LIST changes: +ACET325T38 PO; +ALBU2.5V4 IH; +HYDR-753 PO; +IPRA3AMP IH; +OMG1KC PO
--- NOTE | 2016-10-06 14:03 | Diagnostic Imaging Report ---
INDICATION: Pleural effusion. PA and lateral chest. FINDINGS: There is a left pleural effusion occupying approximately one-third of the left hemithorax. There is some associated left basilar atelectasis. Right lung is clear. There is no pneumothorax. IMPRESSION: Moderate-sized left pleural effusion with associated left basilar atelectasis. Appearance is similar to the previous study from 10/04/2016. Dictated by: Dictated on workstation # [id number]
== END ==
LOC: RAD 11:28
PROVIDERS: ATTEND Nurse Practitioner Adult Health
DX: J90 Pleural effusion, not elsewhere classified (principal)
CPT/HCPCS: 71020

== ENCOUNTER → 2016-10-19 | Outpatient (CLI) | payer MEDICARE, MEDICAID ==
[~2016-10-19] VITALS: Ht 157.5 cm; Wt 78.0 kg
[~2016-10-19] MED LIST changes: -ACET325T38 PO; +CATHETER FLUSH 10 ML SYR IV PRN; -OMG1KC PO
== END ==
LOC: CARD 07:13
PROVIDERS: ATTEND Internal Medicine Cardiovascular Disease
DX: Z53.9 Procedure and treatment not carried out, unspecified reason (principal)

== ENCOUNTER → 2016-10-24 | Outpatient (CLI) | payer MEDICARE, MEDICAID ==
[~2016-10-24] MED LIST changes: +BARIUM SUSPENSION 2.1% (VANILLA SILQ) 450 ML PO ONE; +IOHEXOL 350 MG/ML 100 ML (OMNIPAQUE 350) VIAL IV ONE; +NS 100 ML (IVPB) BAG IV ONE
[2016-10-24] MEDS: CATHETER FLUSH 10 ML SYR IV PRN ×2 (11:12→11:22)
--- NOTE | 2016-10-24 12:12 | Diagnostic Imaging Report ---
PROCEDURE: CT abdomen with contrast only. TECHNIQUE: Multiple contiguous axial images were obtained through the abdomen after the administration of intravenous contrast. INDICATION: Breast cancer. Comparison made to prior examination 10/03/2016. FINDINGS: There is a large left pleural effusion with marked atelectasis at the left lung. There is a small right pleural effusion. The heart size is normal. The liver is normal in size. There are at least two small benign hepatic cysts. The gallbladder is surgically absent. The spleen is unremarkable. The pancreas is unremarkable. There is a 2.5-cm left adrenal nodule. The kidneys are unremarkable apart from mild surrounding inflammatory change which is chronic in appearance. The aorta is nonaneurysmal. Bowel gas pattern is nonspecific. There is no free air. There is no ascites. There are degenerative changes in the spine. IMPRESSION: Large left pleural effusion with marked atelectasis at the left lower lobe. There is also a small right pleural effusion. Small cysts in the liver which is otherwise unremarkable in appearance. Chronic inflammatory changes about both kidneys. A 2.5-cm low-density left adrenal mass. Dictated by: Dictated on workstation # [id number]
--- NOTE | 2016-10-24 15:16 | Diagnostic Imaging Report ---
EXAM: Nuclear medicine whole body bone scan. DATE: October 24, 2016. INDICATION: 70-year-old female, history of right breast cancer. Upper back and left-sided pain. COMPARISON: CT abdomen October 24, 2016. CT chest October 03, 2016. CT head and cervical spine September 06, 2016. CT abdomen and pelvis August 07, 2016. FINDINGS: 25.6 mCi of technetium labeled MDP radiotracer was administered. Delayed subsequent whole body bone scan images were obtained. Additional targeted projections at the level of the ribs and cervical spine were obtained. There is radiotracer uptake in the left anterior fourth, fifth, and sixth ribs in a linear configuration which is compatible with left-sided rib fractures. These are present on comparison CT chest of October 03, 2016. There is radiotracer uptake adjacent to the left knee, which is likely degenerative related. There is radiotracer uptake at the level of the cervical spine, which most likely is degenerative related, particularly correlating with recent comparison CT cervical spine. There is no identified radiotracer-avid lesion to particularly suggest osteoblastic bone metastasis. IMPRESSION: 1. No osteoblastic bone metastasis identified. 2. Fractures of the left fourth, fifth, and sixth ribs anteriorly. 3. Degenerative related radiotracer uptake in the cervical spine. Dictated by: Dictated on workstation # [id number]
== END ==
LOC: CARD 11:00
PROVIDERS: ATTEND Nurse Practitioner Adult Health
DX: C50.211 Malignant neoplasm of upper-inner quadrant of right female breast (principal); J90 Pleural effusion, not elsewhere classified; J98.11 Atelectasis; E27.9 Disorder of adrenal gland, unspecified; S22.42XA Multiple fractures of ribs, left side, initial encounter for closed fracture; X58.XXXA Exposure to other specified factors, initial encounter
CPT/HCPCS: 74160; 78306

== ENCOUNTER → 2016-10-26 | Outpatient (CLI) | payer MEDICARE, MEDICAID ==
[~2016-10-26] VITALS: Ht 157.5 cm; Wt 78.0 kg
[~2016-10-26] MED LIST changes: -BARIUM SUSPENSION 2.1% (VANILLA SILQ) 450 ML PO ONE; -IOHEXOL 350 MG/ML 100 ML (OMNIPAQUE 350) VIAL IV ONE; -NS 100 ML (IVPB) BAG IV ONE; +REGADENOSON 0.4 MG/5 ML SYR (LEXISCAN) IV ONE
[2016-10-26 09:21] VITALS: BP 135/99
--- NOTE | 2016-10-27 07:09 | STRESS TEST ---
DATE OF SERVICE: 10/26/2016 PROCEDURE: Resting and post regadenoson technetium 99m tetrofosmin SPECT CT imaging. ORDERING PHYSICIAN: HALI CEDENO MD, HEATHER, FACP, FACC PRIMARY PHYSICIAN: Dr. Wong. OTHER PHYSICIAN: Salome Jaquez APRN CLINICAL DIAGNOSIS: Shortness of breath. Baseline images were carried out after injection of 10.63 mCi of Tetrofosmin. This was followed by 0.4 mg regadenoson and 28.1 technetium 99m mCi Tetrofosmin for stress imaging. The electrocardiogram showed sinus rhythm at baseline. There was subtle nonspecific ST abnormality which did not change. The electrocardiogram stayed stable during the study. She did not report symptoms. Review of images at rest and following stress does not indicate any significant perfusion defects consistent with significant myocardial ischemia or infarction. Gated images show normal global left ventricular systolic function with normal regional wall motion. Left ventricular end diastolic volume is 25 mL. TID is absent (1.02). Left ventricular ejection fraction is calculated to be 70%. CONCLUSIONS: 1. No evidence of any significant myocardial ischemia or infarction on this study. 2. Normal regional wall motion. 3. Normal global left ventricular systolic function with a calculated ejection fraction of 70%. Job ID: [id number] DocumentID: [id number] Dictated Date: 10/26/2016 11:08:28 Assurance Senior Manager Date: 10/26/2016 11:21:58 Dictated By: HALI CEDENO MD, HEATHER, FACP, FACC,
== END ==
LOC: CARD 07:27
PROVIDERS: ATTEND Internal Medicine Cardiovascular Disease
DX: I10 Essential (primary) hypertension (principal); J90 Pleural effusion, not elsewhere classified; R06.02 Shortness of breath; M79.89 Other specified soft tissue disorders
CPT/HCPCS: 78452; 93017

== ENCOUNTER → 2016-10-27 | Outpatient (CLI) | payer MEDICARE, MEDICAID ==
[~2016-10-27] MED LIST changes: +ACET325T38 PO; -CATHETER FLUSH 10 ML SYR IV PRN; +OMG1KC PO; -REGADENOSON 0.4 MG/5 ML SYR (LEXISCAN) IV ONE
== END ==
LOC: CARD 13:52
PROVIDERS: ATTEND Internal Medicine Cardiovascular Disease
DX: I10 Essential (primary) hypertension (principal); J90 Pleural effusion, not elsewhere classified; R06.02 Shortness of breath; M79.89 Other specified soft tissue disorders
CPT/HCPCS: 93306

== ENCOUNTER 2016-10-30 12:04 | Inpatient (IN) | payer MEDICARE, MEDICAID ==
[~2016-10-30] VITALS: Ht 157.5 cm; Wt 76.2 kg
[~2016-10-30 12:04] MED LIST changes: -ACET325T38 PO; -OMG1KC PO
[2016-10-30] MEDS ORDERED: ENOXAPARIN 40 MG/0.4 ML (LOVENOX) SYR SC SCH (12:30)
--- OUTSIDE RECORDS SUMMARY | 2016-10-30 13:23 | XMS REPORT ---
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 Active 32602670 Problem Screening for breast cancer Z12.39 Active 981601932 Problem Stress incontinence (female) (male) N39.3 Active 819150703 Problem DM neuro manif type II E11.49 Active 00100073 Problem Type 2 diabetes mellitus with diabetic neuropathic arthropathy E11.610 Active 491738897 Problem Irritable bowel syndrome with diarrhea K58.0 Active 052333653 Problem Poor vision H54.7 Active 291646130 Problem Hammertoe M20.40 Active 128581370 Problem Mild single current episode of major depressive disorder F32.0 Active 98400573 Problem Osteoarthritis M19.90 Active 111598473 Problem HTN (hypertension) I10 Active 67047414 Problem Otomycosis in moniliasis B37.84 Active 22143880 Problem Hypothyroid E03.9 Active 30338852 Problem Gastroesophageal reflux disease with esophagitis K21.0 Active 536420332 Problem Hypercholesterolemia E78.00 Active 23933060 Problem History of breast cancer Z85.3 Active 492551095 Problem Neuropathy G62.9 Active 565389608 Problem Cellulitis of breast N61 Active 38260531 Problem Uncomplicated asthma, unspecified asthma severity J45.909 Active 549661302 ALLERGIES Unknown Allergies SOCIAL HISTORY No smoking Hx information available PLAN OF CARE VITAL SIGNS MEDICATIONS Medication Instructions Dosage Frequency Start Date End Date Duration Status Victoza 18 MG/3ML INJECT 1.8 ML (0.3 ML) SUBCUTANEOUSLY ONCE DAILY 30 Active RESULTS No Results PROCEDURES No Known procedures IMMUNIZATIONS No Known Immunizations
--- OUTSIDE RECORDS SUMMARY | 2016-10-30 13:25 | XMS REPORT ---
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 I83.222 Active 18762024 Problem Screening for breast cancer Z12.39 Active 546902137 Problem Stress incontinence (female) (male) N39.3 Active 051949887 Problem DM neuro manif type II E11.49 Active 28471821 Problem Type 2 diabetes mellitus with diabetic neuropathic arthropathy E11.610 Active 887214132 Problem Irritable bowel syndrome with diarrhea K58.0 Active 308326858 Problem Poor vision H54.7 Active 898512022 Problem Hammertoe M20.40 Active 473055063 Problem Mild single current episode of major depressive disorder F32.0 Active 78783128 Problem Osteoarthritis M19.90 Active 980552881 Problem HTN (hypertension) I10 Active 61219154 Problem Otomycosis in moniliasis B37.84 Active 68713931 Problem Hypothyroid E03.9 Active 15173687 Problem Gastroesophageal reflux disease with esophagitis K21.0 Active 775729731 Problem Hypercholesterolemia E78.00 Active 93970840 Problem History of breast cancer Z85.3 Active 312492098 Problem Neuropathy G62.9 Active 865716541 Problem Cellulitis of breast N61 Active 34075097 Problem Uncomplicated asthma, unspecified asthma severity J45.909 Active 261446473 ALLERGIES Unknown Allergies SOCIAL HISTORY No smoking Hx information available PLAN OF CARE VITAL SIGNS MEDICATIONS Unknown Medications RESULTS No Results PROCEDURES No Known procedures IMMUNIZATIONS No Known Immunizations
[2016-10-30 13:30] VITALS: BP 151/85
--- NOTE | 2016-10-30 13:45 | Pulmonary Consultation ---
History of Present Illness History of Present Illness Date of Consultation 10/30/16 13:42 Time Seen by Provider: 13:43 Date of Admission Allergies and Home Medications Allergies Coded Allergies: latex (Verified Allergy, Unknown, 08/31/16) Home Medications Albuterol Sulfate 2.5 Mg/3 Ml Vial.neb, 2.5 MG IH RTQ4HR, #30 Prescribed by: JOHNNY GARZON on 10/04/16 1055 Aspirin 81 Mg Tablet.dr, 81 MG PO 1700, (Reported) Atorvastatin Calcium 40 Mg Tablet, 40 MG PO HS, (Reported) Cholecalciferol (Vitamin D3) 2,000 Unit Tablet, 2,000 UNIT PO DAILY, (Reported) Dicyclomine HCl 10 Mg Capsule, 10 MG PO QID, (Reported) Ezetimibe 10 Mg Tablet, 10 MG PO DAILY, (Reported) Gabapentin 300 Mg Capsule, 300 MG PO TID, (Reported) Glipizide 10 Mg Tablet, 10 MG PO BID, (Reported) Homatropine HBr 5 Ml Drops, 1 DROP OS BID, (Reported) Hydrocodone/Acetaminophen 1 Each Tablet, 1 TAB PO Q4H PRN for PAIN-MODERATE, ( Reported) Ibuprofen 800 Mg Tablet, 800 MG PO TID, (Reported) Ipratropium/Albuterol Sulfate 3 Ml Ampul.neb, 3 ML IH Q6H PRN for SHORTNESS OF BREATH for 30 Days Prescribed by: JOHNNY GARZON on 10/04/16 1110 Levothyroxine Sodium 125 Mcg Tablet, 125 MCG PO DAILY, (Reported) Liraglutide 0.6 Mg/0.1 Ml Pen.injctr, 1.8 MG SQ HS, (Reported) Magnesium Oxide 400 Mg Tablet, 400 MG PO BID, (Reported) Metformin HCl 500 Mg Tablet, 1,000 MG PO BID, (Reported) TAKES 2 (500 MG) TABLETS Mirabegron 50 Mg Tab.er.24h, 50 MG PO 1200, (Reported) Montelukast Sodium 10 Mg Tablet, 10 MG PO HS, (Reported) Medon-3 Fatty Acids/Fish Oil 1 Each Capsule, 1,000 MG PO TID, (Reported) Omeprazole 20 Mg Capsule.dr, 20 MG PO BID, (Reported) Oxybutynin Chloride 15 Mg Tab.er.24, 15 MG PO DAILY, (Reported) Prednisolone Acetate 1 Ml Drops.susp, 1 DROP OS 6 TIMES PER DAY, (Reported) Sertraline HCl 25 Mg Tablet, 25 MG PO HS, (Reported) Past Vgolbhx-Ylwqiu-Zpyvxf Hx Patient Social History Type Used: Cigarettes Former Smoker, Quit: Aug 05, 2007 2nd Hand Smoke Exposure: No Recent Foreign Travel: No Contact w/Someone Who Travel: No Recent Hopitalizations: No Immunizations Up To Date Tetanus Booster (TDap): Unknown PED Vaccines UTD: No Date of Pneumonia Vaccine: Jan 26, 2012 Date of Influenza Vaccine: Nov 19, 2014 Seasonal Allergies Seasonal Allergies: Yes Surgeries History of Surgeries: Yes (LEfT arm fx, port placed and removed) Surgeries: Breast, Eye Surgery, Gallbladder, 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, Orthopedic, Renal, Thyroidectomy Respiratory History of Respiratory Disorde: No Cardiovascular History of Cardiac Disorders: Yes Cardiac Disorders: Chronic Edema/Swelling, High Cholesterol, Hypertension, Peripheral Vascular Neurological History of Neurological Disord: Yes Neurological Disorders: Neuropathy Reproductive System Hx Reproductive Disorders: No Sexually Transmitted Disease: No HIV/AIDS: No Female Reproductive Disorders: Denies 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, Menopausal Genitourinary History of Genitourinary Disor: No Genitourinary Disorders: Kidney Stones Gastrointestinal History of Gastrointestinal Di: Yes Gastrointestinal Disorders: Gastroesophageal Reflux, Diverticulosis, Polyps, Irritable Bowel Musculoskeletal History of Musculoskeletal Dis: Yes (LYMPHEDEMA OF RIGHT ARM; BILATERAL ARM FX' S ) Musculoskeletal Disorders: Degenerate Disk Disease, Arthritis, Chronic Back Pain, Fractures Endocrine History of Endocrine Disorders: Yes ( S/P THYROIDECTOMY; OBESITY) Endocrine Disorders: Hypothyroidsim, Diabetes, Non-Insulin dep HEENT HEENT Disorders: Cataract, Dysphagia Loss of Vision: Bilateral Hearing Impairment: Denies Cancer History of Cancer: Yes (S/P RIGHT LUMPECTOMY & LYMPH NODE DISSECTION 2008) Cancer: Breast Psychosocial History of Psychiatric Problem: Yes Behavioral Health Disorders: Sleep Difficulties, Anxiety, Depression Integumentary History of Skin or Integumenta: Yes (bruise left eye from fall 09/06/16) Skin/Integumentary Disorders: Herpes Blood Transfusions History of Blood Disorders: No Adverse Reaction to a Blood Tr: No Family Medical History Family Medial History: Patient reports no known family medical history. Assessment/Plan Assessment/Plan Dyspnea Hx of Large malignant left pleural effusion and hx of breast cancer -CXR - CBC, CMP coagulation panel Dyspnea secondary to left effusion MERCEDES GARCIA DO Oct 30, 2016 13:45
[2016-10-30] MEDS ORDERED: ALBU2.5V4 IH (13:54)
[2016-10-30] MEDS ORDERED: OMG1KC PO (13:54)
[2016-10-30] MEDS ORDERED: ACET325T38 PO (14:08)
--- NOTE | 2016-10-30 14:44 | Diagnostic Imaging Report ---
INDICATION: Pleural effusion, shortness of breath. TECHNIQUE: Single view chest at 1:51 PM. CORRELATION STUDY: 10/06/2016. FINDINGS: There is essentially complete opacification of the left hemithorax which is likely owing to a large left pleural effusion which has adversely increased and changed since the prior study. A small right pleural effusion has also developed and changed since the prior study. The heart size is largely obscured but does appear to be likely enlarged and slightly displaced towards the right. Fullness of the right amisha is noted and some underlying mass or adenopathy is not excluded. Multiple surgical clips over the right chest are present. There are likely old healed rib fracture deformities on the right. IMPRESSION: 1. The left hemithorax is completely opacified, likely owing to interval increase in size of a large left pleural effusion with the presence of an at least moderate sized right pleural effusion. 2. Fullness in the right amisha for which underlying adenopathy or mass lesion is not excluded. Dictated by: Dictated on workstation # [id number]
[2016-10-30] MEDS: RT-ALBUTEROL/IPRATROPIUM 3 ML (DUONEB) VIAL INH SCH ×3 (14:45→22:07)
[2016-10-30 15:27] LABS: BASOPHILS % (AUTO) 0 % (0-10); EOSINOPHILS % (AUTO) 0 % (0-10); LYMPHOCYTES # (AUTO) 0.7 X 10^3 (1.0-4.0); LYMPHOCYTES % (AUTO) 6 % (12-44); MEAN CORPUSCULAR HEMOGLOBIN 26 PG (25-34); MEAN CORPUSCULAR HGB CONC 30 G/DL (32-36); MEAN CORPUSCULAR VOLUME 87 FL (80-99); MEAN PLATELET VOLUME 11.3 FL (7.4-10.4); MONOCYTES # (AUTO) 0.7 X 10^3 (0.0-1.0); MONOCYTES % (AUTO) 6 % (0-12); NEUTROPHILS # (AUTO) 10.4 X 10^3 (1.8-7.8); NEUTROPHILS % (AUTO) 88 % (42-75); PLATELET COUNT 288 10^3/uL (130-400); RED BLOOD COUNT 4.62 10^6/uL (4.35-5.85); RED CELL DISTRIBUTION WIDTH 15.3 % (10.0-14.5); WHITE BLOOD COUNT 11.8 10^3/uL (4.3-11.0)
[2016-10-30 15:37] VITALS: BP 132/87
[2016-10-30 15:46] LABS: ALANINE AMINOTRANSFERASE 56 U/L (0-55); ALBUMIN 3.8 GM/DL (3.2-4.5); ANION GAP 11 MMOL/L (5-14); ASPARTATE AMINO TRANSFERASE 38 U/L (5-34); BILIRUBIN,TOTAL 1.2 MG/DL (0.1-1.0); BLOOD UREA NITROGEN 36 MG/DL (7-18); BUN/CREATININE RATIO 47; CALCIUM 9.7 MG/DL (8.5-10.1); CARBON DIOXIDE 28 MMOL/L (21-32); CHLORIDE 101 MMOL/L (98-107); CREATININE SERUM 0.76 MG/DL (0.60-1.30); GFR ESTIMATED > 60; GLUCOSE 394 MG/DL (70-105); POTASSIUM 5.5 MMOL/L (3.6-5.0); SODIUM 140 MMOL/L (135-145); TOTAL PROTEIN 7.3 GM/DL (6.4-8.2)
[2016-10-30 15:54] LABS: BAND NEUTROPHILS 2 %; BASOPHILS % (MANUAL) 0 %; EOSINOPHILS % (MANUAL) 0 %; LYMPHOCYTES % (MANUAL) 11 %; NEUTROPHILS % (MANUAL) 82 %
[2016-10-30 16:11] LABS: INR 1.2 (0.8-1.4); PROTHROMBIN TIME PATIENT 15.5 SEC (12.2-14.7)
[2016-10-30] MEDS ORDERED: NS 100 ML (IVPB) BAG IV ONE (16:30)
[2016-10-30] MEDS ORDERED: IOHEXOL 350 MG/ML 100 ML (OMNIPAQUE 350) VIAL IV ONE (16:30)
--- NOTE | 2016-10-30 17:09 | History & Physicial ([facility]) ---
HPI History of Present Illness: 70 yo F that was a direct admission from [facility] walk in care for increasing shortness of breath with hypoxia. Patient states that she has been having worsening shortness of breath for the last 3 weeks but today was a lot worse to the point that she could not tolerate getting out of bed. She has a home oxygen requirement of 2-3 L. Recent admission for pleural effusion that was drained and she was then sent home with oxygen. Pleural effusion was thought to be related to recurrent breast cancer. Dr Pfeiffer has previously spoke to patient and healthcare advisory services manager about pleurex drain and they are wanting to discuss further because patient feels like the fluid is reaccumulating. Patient states that Dr Bradford recently took her off her Motrin and since then her pain has been much worse and has hindered her ambulation. Denies any chest pain or palpitations, No N/V or abdominal pain. 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 roll inspector caregiver Alcohol Use: Denies Use Recreational Drug Use: No Smoking Status: Former Smoker Former smoker/When Quit: Dec 25, 2006 Type Used: Cigarettes 2nd Hand Smoke Exposure: No Recent Foreign Travel: No Contact w/other who traveled: No Recent Hopitalizations: No Recent Infectious Disease Expo: No Physical Abuse Screen: No Sexual Abuse: No Immunizations Up To Date Tetanus Booster (TDap): Unknown Date of Pneumonia Vaccine: Jan 26, 2012 Date of Influenza Vaccine: Nov 19, 2014 Past Medical History Breast cancer, diagnosed 2008, followed by Dr Trinh Recurrent Pleural Effusions DMT2 HTN HLD Hypothyroidism 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 Review of Systems ([facility]) Constitutional: No chills, No fever, malaise, weakness EENTM: no symptoms reported Respiratory: No cough, dyspnea on exertion, orthopnea, short of breath, No wheezing Cardiovascular: No chest pain, edema, No palpitations Gastrointestinal: no symptoms reported, No abdominal pain, No constipation, No diarrhea, loss of appetite, No nausea, No vomiting Genitourinary: no symptoms reported, No dysuria, No frequency, No hematuria : No Musculoskeletal: muscle pain Skin: no symptoms reported, No lesions, No rash Psychiatric/Neurological: No Symptoms Reported, Denies Anxiety, Denies Depressed Reviewed Test Results Reviewed Test Results Lab Laboratory Tests Test 10/30/16 15:20 Range/Units White Blood Count 11.8 H 4.3-11.0 10^3/uL Red Blood Count 4.62 4.35-5.85 10^6/uL Hemoglobin 12.2 11.5-16.0 G/DL Hematocrit 40 35-52 % Mean Corpuscular Volume 87 80-99 FL Mean Corpuscular Hemoglobin 26 25-34 PG Mean Corpuscular Hemoglobin Concent 30 L 32-36 G/DL Red Cell Distribution Width 15.3 H 10.0-14.5 % Platelet Count 288 130-400 10^3/uL Mean Platelet Volume 11.3 H 7.4-10.4 FL Neutrophils (%) (Auto) 88 H 42-75 % Lymphocytes (%) (Auto) 6 L 12-44 % Monocytes (%) (Auto) 6 0-12 % Eosinophils (%) (Auto) 0 0-10 % Basophils (%) (Auto) 0 0-10 % Neutrophils # (Auto) 10.4 H 1.8-7.8 X 10^3 Lymphocytes # (Auto) 0.7 L 1.0-4.0 X 10^3 Monocytes # (Auto) 0.7 0.0-1.0 X 10^3 Eosinophils # (Auto) 0.0 0.0-0.3 10^3/uL Basophils # (Auto) 0.0 0.0-0.1 10^3/uL Neutrophils % (Manual) 82 % Lymphocytes % (Manual) 11 % Monocytes % (Manual) 5 % Eosinophils % (Manual) 0 % Basophils % (Manual) 0 % Band Neutrophils 2 % Blood Morphology Comment NORMAL Prothrombin Time 15.5 H 12.2-14.7 SEC INR Comment 1.2 0.8-1.4 Activated Partial Thromboplast Time 27 24-35 SEC Sodium Level 140 135-145 MMOL/L Potassium Level 5.5 H 3.6-5.0 MMOL/L Chloride Level 101 98-107 MMOL/L Carbon Dioxide Level 28 21-32 MMOL/L Anion Gap 11 5-14 MMOL/L Blood Urea Nitrogen 36 H 7-18 MG/DL Creatinine 0.76 0.60-1.30 MG/DL Estimat Glomerular Filtration Rate > 60 BUN/Creatinine Ratio 47 Glucose Level 394 H 70-105 MG/DL Calcium Level 9.7 8.5-10.1 MG/DL Total Bilirubin 1.2 H 0.1-1.0 MG/DL Aspartate Amino Transf (AST/SGOT) 38 H 5-34 U/L Alanine Aminotransferase (ALT/SGPT) 56 H 0-55 U/L Alkaline Phosphatase 96 40-136 U/L Total Protein 7.3 6.4-8.2 GM/DL Albumin 3.8 3.2-4.5 GM/DL Radiology Date of Exam:10/30/16 CHEST 1 VIEW, AP/PA ONLY INDICATION: Pleural effusion, shortness of breath. TECHNIQUE: Single view chest at 1:51 PM. CORRELATION STUDY: 10/06/2016. FINDINGS: There is essentially complete opacification of the left hemithorax which is likely owing to a large left pleural effusion which has adversely increased and changed since the prior study. A small right pleural effusion has also developed and changed since the prior study. The heart size is largely obscured but does appear to be likely enlarged and slightly displaced towards the right. Fullness of the right amisha is noted and some underlying mass or adenopathy is not excluded. Multiple surgical clips over the right chest are present. There are likely old healed rib fracture deformities on the right. IMPRESSION: 1. The left hemithorax is completely opacified, likely owing to interval increase in size of a large left pleural effusion with the presence of an at least moderate sized right pleural effusion. 2. Fullness in the right amisha for which underlying adenopathy or mass lesion is not excluded. Physical Exam-([facility]) Physical Exam Vital Signs VS - Last 72 Hours, by Label 10/30/16 10/30/16 10/30/16 10/30/16 13:30 14:00 14:46 15:37 Temp 98.0 98.4 Pulse 107 102 Resp 22 22 B/P (MAP) 151/85 132/87 Pulse Ox 99 97 100 O2 Delivery Nasal Cannula Nasal Cannula Nasal Cannula Nasal Cannula O2 Flow Rate 4.00 4.00 3.50 4.00 Capillary Refill : General Appearance: no apparent distress HEENT: PERRL/EOMI Neck: non-tender, full range of motion, No carotid bruit Respiratory: chest non-tender, no accessory muscle use, crackles, No wheezing Cardiovascular: normal peripheral pulses, regular rate, rhythm, no murmur, other (+ 2+ pitting edema bilateral LE) Gastrointestinal: normal bowel sounds, non tender, soft, no organomegaly Back: normal inspection, no CVA tenderness, no vertebral tenderness Extremities: normal range of motion, non-tender, normal capillary refill, pedal edema (2+) Neurologic/Psychiatric: 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 II-XII nml as tested, no motor/sensory deficits, alert, normal mood/affect, oriented x 3 Skin: normal color, warm/dry Assessment/Plan Assessment/Plan Plan 70 yo F with acute respiratory failure with hypoxia with h/o recurrent pleural effusions Plan Acute on Chronic Respiratory Failure with hypoxia likely 2/2 worsening pleural effusions - Dr Pfeiffer consulted and plans to put pleurex catheter - Keep oxygen sat >92, titrate as tolerated, RT following patient - CT scan pending Bilateral Pleural Effusions: See Above Non Insulin DM - SSI ordered, holding PO meds due to possible contrast study Elevated LFTs - Repeat in AM - Liver US and Hepatitis Panel pending Bilateral LE edema - Consider LE dopplers - BNP pending Hypothyroidism - Continue home dose, normal TSH last admission H/o Breast Ca FEN: DM diet DVT PPX: Lovenox, GFR >40 Dispo: Admit to Med Surg floor Diagnosis/Problems: Clinical Quality Measures DVT/VTE Risk/Contraindication: Risk Factor Score Per Nursin RFS Level Per Nursing on Admit: 3=High Copy Copies To 1: [facility] JOHNNY Greer MD Oct 30, 2016 17:09
--- NOTE | 2016-10-30 17:18 | Diagnostic Imaging Report ---
PROCEDURE: CT chest with contrast only. TECHNIQUE: Multiple contiguous axial images were obtained through the chest after administration of intravenous contrast. INDICATION: Pleural effusion. 75 mL of Omnipaque 350 is administered intravenously. FINDINGS: There is a very large left pleural effusion filling the entire left hemithorax resulting in complete atelectasis in the left lung. There is mass effect on the mediastinum and the heart shifting to the right. There is moderate right pleural effusion as well. There is no aeration in the left lung. The aerated portion of the lungs are within the right upper lobe, right middle lobe, and the remaining portion of the right lower lobe with some atelectasis seen. There is compression of the tracheobronchial tree around the selena and the main bronchi bilaterally. The heart size is normal. The thoracic aorta is normal in caliber. No significantly enlarged lymph nodes are appreciated. There is evidence of prior lumpectomy in the right breast with significant right breast skin thickening. The large effusions in the chest demonstrate no associated masses or other evidence of complexity to suggest an underlying infection. The significant mass effect is associated with depression of the left hemidiaphragm displacing the spleen and adjacent abdominal structures inferiorly. Cholecystectomy clips are seen. The osseous structures demonstrate degenerative changes. IMPRESSION: 1. There is a very large left pleural effusion with significant mass effect on the mediastinum, the heart, and the left hemidiaphragm pushing it into the upper left abdomen. This results in complete atelectasis of the left lung. 2. There is a [id number] right pleural effusion with mild atelectatic changes in the right lung. Dr. Pfeiffer was called, and a voice message about the findings of this exam was left. Dictated by: Dictated on workstation # [id number]
[2016-10-30] MEDS: ASPIRIN E.C. 81 MG (ECOTRIN) TAB PO SCH (17:54)
[2016-10-30] MEDS: DICYCLOMINE 10 MG (BENTYL) CAP PO SCH ×2 (17:54→21:18)
[2016-10-30] MEDS: ENOXAPARIN 40 MG/0.4 ML (LOVENOX) SYR SC SCH (17:54)
--- NOTE | 2016-10-30 19:14 | Diagnostic Imaging Report ---
INDICATION: Elevated liver function tests. TECHNIQUE: Multiple grayscale sonographic images were obtained of the right upper quadrant of the abdomen. CORRELATION STUDY: None. FINDINGS: LIVER: Hypo to anechoic area in the left lobe favoring probable cyst 11 mm in size. Additionally, there is a geographic area of increased echogenicity within the right lobe centrally, nonspecific could be reflective of perhaps area of fatty infiltration. GALLBLADDER: Not visualized, reported as surgically absent. COMMON BILE DUCT: Obscured. PANCREAS: Obscured by overlying bowel gas. RIGHT KIDNEY: Measures 11.6 cm. No hydronephrosis. OTHER: None. IMPRESSION: 1. Probable hepatic cyst. Additional geographic area of increased echogenicity is nonspecific. This could be reflective of perhaps area of focal fatty infiltration. Mass lesion would be difficult to exclude on this examination. Follow-up CT imaging of the abdomen would be recommended if clinically warranted. 3. Apparent cholecystectomy changes. Dictated by: Dictated on workstation # [id number]
--- NOTE | 2016-10-30 19:19 | Consultation ---
History of Present Illness History of Present Illness Patient Consulted On(ernesto/time) 10/30/16 19:12 Date Seen by Provider: Oct 30, 2016 Time Seen by Provider: 19:12 History of Present Illness Consult requested for Pleurx catheter left chest for recurrent left malignant pleural effusion. Patient is a 70-year-old female with history of breast cancer. She's had a recurrent pleural effusion. Over the last few weeks she's been having increasing shortness of breath and difficulty breathing. She is on home oxygen. Patient states that any activities making her breathing more difficult. She states that she was previously discuss having a Pleurx catheter placed but declined at that time but would now like to discuss to possibly have placed. Patient states that laying still and resting does seem to help little bit in terms of her breathing. As she was increasing her activity she was having hunger for air. Patient had a CT and chest x-rays both demonstrating a large left pleural effusion other findings on report. Patient denies any fever sweats chills chest pain. She does note some lower extremity edema. Allergies and Home Medications Allergies Coded Allergies: latex (Verified Allergy, Unknown, 08/31/16) Home Medications Acetaminophen 325 Mg Tablet, 325 MG PO Q4H PRN for PAIN-MILD, (Reported) Albuterol Sulfate 2.5 Mg/3 Ml Vial.neb, 2.5 MG IH Q4H PRN for SHORTNESS OF BREATH, (Reported) Aspirin 81 Mg Tablet.dr, 81 MG PO 1700, (Reported) Atorvastatin Calcium 40 Mg Tablet, 40 MG PO HS, (Reported) Cholecalciferol (Vitamin D3) 2,000 Unit Tablet, 2,000 UNIT PO 1200, (Reported) Dicyclomine HCl 10 Mg Capsule, 10 MG PO QID, (Reported) Ezetimibe 10 Mg Tablet, 10 MG PO DAILY, (Reported) Gabapentin 300 Mg Capsule, 300 MG PO TID, (Reported) Glipizide 10 Mg Tablet, 10 MG PO BID, (Reported) Levothyroxine Sodium 125 Mcg Tablet, 125 MCG PO DAILY, (Reported) Liraglutide 0.6 Mg/0.1 Ml Pen.injctr, 1.8 MG SQ HS, (Reported) Metformin HCl 500 Mg Tablet, 1,000 MG PO BID, (Reported) TAKES 2 (500 MG) TABLETS Mirabegron 50 Mg Tab.er.24h, 50 MG PO 1200, (Reported) Montelukast Sodium 10 Mg Tablet, 10 MG PO HS, (Reported) [place] 3 Polyunsat Fatty Acids 1,000 Mg Cap, 1,000 MG PO TID, (Reported) Omeprazole 20 Mg Capsule.dr, 20 MG PO BID, (Reported) Sertraline HCl 25 Mg Tablet, 25 MG PO HS, (Reported) Past [id number]-Mohpvm Hx Patient Social History Alcohol Use: Denies Use Recreational Drug Use: No Smoking Status: Former Smoker Former Smoker, Quit: Aug 05, 2007 Type Used: Cigarettes 2nd Hand Smoke Exposure: No Recent Foreign Travel: No Contact w/Someone Who Travel: No Recent Infectious Disease Expo: No Recent Hopitalizations: No Physical Abuse Screen: No Sexual Abuse: No Immunizations Up To Date Tetanus Booster (TDap): Unknown PED Vaccines UTD: No Date of Pneumonia Vaccine: Jan 26, 2012 Date of Influenza Vaccine: Nov 19, 2014 Seasonal Allergies Seasonal Allergies: Yes Surgeries History of Surgeries: Yes (LEfT arm fx, port placed and removed) Surgeries: Breast, Eye Surgery, Gallbladder, 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, Orthopedic, Renal, Thyroidectomy Respiratory History of Respiratory Disorde: No Cardiovascular History of Cardiac Disorders: Yes Cardiac Disorders: Chronic Edema/Swelling, High Cholesterol, Hypertension, Peripheral Vascular Neurological History of Neurological Disord: Yes Neurological Disorders: Neuropathy Reproductive System Hx Reproductive Disorders: No Sexually Transmitted Disease: No HIV/AIDS: No Female Reproductive Disorders: Denies 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: 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, Menopausal Genitourinary History of Genitourinary Disor: No Genitourinary Disorders: Kidney Stones Gastrointestinal History of Gastrointestinal Di: Yes Gastrointestinal Disorders: Gastroesophageal Reflux, Diverticulosis, Polyps, Irritable Bowel Musculoskeletal History of Musculoskeletal Dis: Yes (LYMPHEDEMA OF RIGHT ARM; BILATERAL ARM FX' S ) Musculoskeletal Disorders: Degenerate Disk Disease, Arthritis, Chronic Back Pain, Fractures Endocrine History of Endocrine Disorders: Yes ( S/P THYROIDECTOMY; OBESITY) Endocrine Disorders: Hypothyroidsim, Diabetes, Non-Insulin dep HEENT HEENT Disorders: Cataract, Dysphagia Loss of Vision: Bilateral Hearing Impairment: Denies Cancer History of Cancer: Yes (S/P RIGHT LUMPECTOMY & LYMPH NODE DISSECTION 2008) Cancer: Breast Psychosocial History of Psychiatric Problem: Yes Behavioral Health Disorders: Sleep Difficulties, Anxiety, Depression Integumentary History of Skin or Integumenta: Yes (bruise left eye from fall 09/06/16) Skin/Integumentary Disorders: Herpes Blood Transfusions History of Blood Disorders: No Adverse Reaction to a Blood Tr: No Family Medical History Significant Family History: No Pertinent Family Hx Family Medial History: Patient reports no known family medical history. Review of Systems-General Constitutional: no symptoms reported EENTM: no symptoms reported Respiratory: see HPI Cardiovascular: no symptoms reported Gastrointestinal: no symptoms reported Genitourinary: no symptoms reported Musculoskeletal: see HPI Skin: no symptoms reported Psychiatric/Neurological: No Symptoms Reported Physical Exam-General Problems Physical Exam Vital Signs Vital Sign - Last 12Hours 10/30/16 13:30 Temp 98.0 Pulse 107 Resp 22 B/P (MAP) 151/85 Pulse Ox 99 O2 Delivery Nasal Cannula O2 Flow Rate 4.00 Capillary Refill : General Appearance: no apparent distress HEENT: normal ENT inspection Neck: supple Respiratory: respiratory distress (slight labored breathing) Cardiovascular: regular rate, rhythm Gastrointestinal: non tender, soft Rectal: deferred Back: normal inspection Extremities: other (bilateral lower extremity edema) Neurologic/Psychiatric: alert, normal mood/affect, oriented x 3 Skin: warm/dry Data Review Labs Laboratory Tests 10/30/16 15:20: White Blood Count 11.8H, Red Blood Count 4.62, Hemoglobin 12.2, Hematocrit 40, Mean Corpuscular Volume 87, Mean Corpuscular Hemoglobin 26, Mean Corpuscular Hemoglobin Concent 30L, Red Cell Distribution Width 15.3H, Platelet Count 288, Mean Platelet Volume 11.3H, Neutrophils (%) (Auto) 88H, Lymphocytes (%) (Auto) 6L, Monocytes (%) (Auto) 6, Eosinophils (%) (Auto) 0, Basophils (%) (Auto) 0, Neutrophils # (Auto) 10.4H, Lymphocytes # (Auto) 0.7L, Monocytes # (Auto) 0.7, Eosinophils # (Auto) 0.0, Basophils # (Auto) 0.0, Neutrophils % (Manual) 82, Lymphocytes % (Manual) 11, Monocytes % (Manual) 5, Eosinophils % (Manual) 0, Basophils % (Manual) 0, Band Neutrophils 2, Blood Morphology Comment NORMAL, Prothrombin Time 15.5H, INR Comment 1.2, Activated Partial Thromboplast Time 27 , Sodium Level 140, Potassium Level 5.5H, Chloride Level 101, Carbon Dioxide Level 28, Anion Gap 11, Blood Urea Nitrogen 36H, Creatinine 0.76, Estimat Glomerular Filtration Rate > 60, BUN/Creatinine Ratio 47, Glucose Level 394H, Calcium Level 9.7, Total Bilirubin 1.2H, Aspartate Amino Transf (AST/SGOT) 38H, Alanine Aminotransferase (ALT/SGPT) 56H, Alkaline Phosphatase 96, B-Type Natriuretic Peptide 21.0, Total Protein 7.3, Albumin 3.8 Assessment/Plan Assessment/Plan Assessment/Plan Dyspnea secondary to large left malignant pleural effusion that is recurrent History of breast cancer I have discussed with Dr. Pfeiffer and Dr. Miranda who feel that Pleurx catheter would be beneficial to the patient. Patient was discuss risk and benefits of having Pleurx catheter placed. She understands and wishes to proceed. Patient to be nothing by mouth after midnight and plan to have placement of left Pleurx catheter, left chest tomorrow. Clinical Quality Measures DVT/VTE Risk/Contraindication: Risk Factor Score Per Nursin RFS Level Per Nursing on Admit: 3=High CHAVEZ HARRIS DO Oct 30, 2016 19:19
[2016-10-30 19:38] VITALS: BP 120/68
[2016-10-30] MEDS ORDERED: OMEPRAZOLE 20 MG (PriLOSEC) CAP NON-FORMULARY PO SCH (21:00)
[2016-10-30] MEDS ORDERED: inSUlin DETERMIR 1 UNIT/0.01 ML (LEVEMIR) CHARGE PER UNIT SQ ONE (21:00)
[2016-10-30] MEDS ORDERED: NON-FORMULARY MEDICATION 1 EA EA (Sertraline HCl 25 MG) PO SCH (21:00)
[2016-10-30] MEDS: SERTRALINE 50 MG (ZOLOFT) TABLET PO SCH (21:19)
[2016-10-30] MEDS: PANTOPRAZOLE 20 MG TABLET (PROTONIX) PO SCH (21:19)
[2016-10-30] MEDS: MONTELUKAST 10 MG (SINGULAIR) TAB PO SCH (21:19)
[2016-10-30] MEDS: inSUlin ASPART (NovoLOG) 1 UNIT/0.01 ML (CHARGE PER UNIT) SC SCH (21:19)
[2016-10-30] MEDS: GABAPENTIN 300 MG (NEURONTIN) CAP PO SCH (21:19)
[2016-10-31] VITALS: BP 135/84
[2016-10-31] MEDS: RT-ALBUTEROL/IPRATROPIUM 3 ML (DUONEB) VIAL INH SCH ×6 (02:06→22:24)
[2016-10-31 04:00] VITALS: BP 136/91
[2016-10-31] MEDS: inSUlin ASPART (NovoLOG) 1 UNIT/0.01 ML (CHARGE PER UNIT) SC SCH ×4 (05:48→20:20)
[2016-10-31] MEDS: LEVOTHYROXINE 125 MCG (LEVOTHROID) TABLET PO SCH (05:48)
[2016-10-31] MEDS: PANTOPRAZOLE 20 MG TABLET (PROTONIX) PO SCH ×2 (05:49→20:17)
[2016-10-31 05:54] LABS: BASOPHILS % (AUTO) 0 % (0-10); EOSINOPHILS % (AUTO) 0 % (0-10); LYMPHOCYTES % (AUTO) 8 % (12-44); MEAN CORPUSCULAR HEMOGLOBIN 27 PG (25-34); MEAN CORPUSCULAR HGB CONC 30 G/DL (32-36); MEAN CORPUSCULAR VOLUME 88 FL (80-99); MEAN PLATELET VOLUME 11.1 FL (7.4-10.4); MONOCYTES # (AUTO) 1.3 X 10^3 (0.0-1.0); MONOCYTES % (AUTO) 10 % (0-12); NEUTROPHILS # (AUTO) 10.5 X 10^3 (1.8-7.8); NEUTROPHILS % (AUTO) 82 % (42-75); PLATELET COUNT 327 10^3/uL (130-400); RED BLOOD COUNT 4.66 10^6/uL (4.35-5.85); RED CELL DISTRIBUTION WIDTH 15.4 % (10.0-14.5); WHITE BLOOD COUNT 12.8 10^3/uL (4.3-11.0)
[2016-10-31 06:08] LABS: INR 1.2 (0.8-1.4)
[2016-10-31 06:15] LABS: ALANINE AMINOTRANSFERASE 59 U/L (0-55); ALBUMIN 3.7 GM/DL (3.2-4.5); ANION GAP 11 MMOL/L (5-14); ASPARTATE AMINO TRANSFERASE 34 U/L (5-34); BLOOD UREA NITROGEN 38 MG/DL (7-18); BUN/CREATININE RATIO 45; CALCIUM 9.7 MG/DL (8.5-10.1); CARBON DIOXIDE 27 MMOL/L (21-32); CHLORIDE 102 MMOL/L (98-107); CREATININE SERUM 0.85 MG/DL (0.60-1.30); GFR ESTIMATED > 60; POTASSIUM 5.1 MMOL/L (3.6-5.0); SODIUM 140 MMOL/L (135-145); TOTAL PROTEIN 6.8 GM/DL (6.4-8.2)
[2016-10-31 06:23] LABS: GLUCOSE 401 MG/DL (70-105)
[2016-10-31 08:05] VITALS: BP 118/65
--- NOTE | 2016-10-31 08:44 | Pulmonary Progress Note ---
Subjective Time Seen by Provider: 07:30 Subjective/Events-last exam pt complains of worsening SOB> Exam Exam Vital Signs Date Time Temp Pulse Resp B/P (MAP) Pulse Ox O2 Delivery O2 Flow Rate FiO2 10/31/16 08:05 97.4 109 20 118/65 95 Room Air 4.00 10/31/16 08:00 Nasal Cannula 3.50 10/31/16 07:25 96 Nasal Cannula 4.00 10/31/16 04:00 96.3 106 20 136/91 98 Nasal Cannula 4.00 10/31/16 02:07 97 Nasal Cannula 3.50 10/31/16 00:00 97.7 111 19 135/84 99 Room Air 4.00 10/31/16 00:00 97.7 111 19 135/84 99 Nasal Cannula 4.00 10/30/16 22:07 98 Nasal Cannula 3.50 10/30/16 20:55 Nasal Cannula 3.50 10/30/16 19:38 98.1 108 22 120/68 100 Nasal Cannula 4.00 10/30/16 18:36 93 Nasal Cannula 3.50 10/30/16 15:37 98.4 102 22 132/87 100 Nasal Cannula 4.00 10/30/16 14:46 97 Nasal Cannula 3.50 10/30/16 14:00 Nasal Cannula 4.00 10/30/16 13:30 98.0 107 22 151/85 99 Nasal Cannula 4.00 General Appearance: Anxious, Mild Distress Neck: Full Range of Motion, Normal Inspection Respiratory: Accessory Muscle Use, Decreased Breath Sounds Cardiovascular: Regular Rate, Rhythm, No Edema Gastrointestinal: non tender, soft Neurologic/Psychiatric: Alert, Oriented x3 Skin: Normal Color, Warm/Dry Lymphatic: No Adenopathy Results Lab Laboratory Tests 10/30/16 15:20 10/31/16 05:30 Assessment/Plan Assessment/Plan Dyspnea Hx of Large malignant left pleural effusion and hx of breast cancer -Pleurex catheter today by Dr. Sanches Dyspnea secondary to left effusion 233 Clinical Quality Measures DVT/VTE Risk/Contraindication: Risk Factor Score Per Nursin RFS Level Per Nursing on Admit: 3=High MERCEDES GARCIA DO Oct 31, 2016 08:44
[2016-10-31] MEDS: DICYCLOMINE 10 MG (BENTYL) CAP PO SCH ×4 (09:00→20:16)
[2016-10-31] MEDS: GABAPENTIN 300 MG (NEURONTIN) CAP PO SCH ×3 (09:00→20:16)
--- NOTE | 2016-10-31 10:54 | Progress Note (SOAP) ---
Subjective Subjective/Events-last exam Shortness of breath is getting worse overnight. NPO. Blood sugars have been elevated since she is not on her PO medications Review of Systems Date Seen by Provider: Oct 31, 2016 Time Seen by Provider: 09:15 General: No Chills, Fatigue Pulmonary: Dyspnea Cardiovascular: No: Chest Pain, Palpitations Gastrointestinal: No: Nausea, Vomiting, Abdominal Pain, Diarrhea, Constipation Objective Exam Last Set of Vital Signs Vital Signs Date Time Temp Pulse Resp B/P (MAP) Pulse Ox O2 Delivery O2 Flow Rate FiO2 10/31/16 09:54 95 Nasal Cannula 4.00 10/31/16 08:05 97.4 109 20 118/65 Capillary Refill : I&O Intake and Output 11/01/16 00:00 Intake Total 0 ml Balance 0 ml Intake Oral 0 ml # Voids 2 General: Alert, Oriented X3, Mild Distress Lungs: Other (distant breath sounds) Heart: Regular Rate, No Murmurs Abdomen: Soft, No Tenderness, No Hepatosplenomegaly Extremities: No Edema, No Tenderness/Swelling Skin: No Rashes Neuro: Strength at 5/5 X4 Ext, Cranial Nerves 3-12 NL Results/Procedures Lab Laboratory Tests 10/30/16 15:20: White Blood Count 11.8H, Red Blood Count 4.62, Hemoglobin 12.2, Hematocrit 40, Mean Corpuscular Volume 87, Mean Corpuscular Hemoglobin 26, Mean Corpuscular Hemoglobin Concent 30L, Red Cell Distribution Width 15.3H, Platelet Count 288, Mean Platelet Volume 11.3H, Neutrophils (%) (Auto) 88H, Lymphocytes (%) (Auto) 6L, Monocytes (%) (Auto) 6, Eosinophils (%) (Auto) 0, Basophils (%) (Auto) 0, Neutrophils # (Auto) 10.4H, Lymphocytes # (Auto) 0.7L, Monocytes # (Auto) 0.7, Eosinophils # (Auto) 0.0, Basophils # (Auto) 0.0, Neutrophils % (Manual) 82, Lymphocytes % (Manual) 11, Monocytes % (Manual) 5, Eosinophils % (Manual) 0, Basophils % (Manual) 0, Band Neutrophils 2, Blood Morphology Comment NORMAL, Prothrombin Time 15.5H, INR Comment 1.2, Activated Partial Thromboplast Time 27 , Sodium Level 140, Potassium Level 5.5H, Chloride Level 101, Carbon Dioxide Level 28, Anion Gap 11, Blood Urea Nitrogen 36H, Creatinine 0.76, Estimat Glomerular Filtration Rate > 60, BUN/Creatinine Ratio 47, Glucose Level 394H, Calcium Level 9.7, Total Bilirubin 1.2H, Aspartate Amino Transf (AST/SGOT) 38H, Alanine Aminotransferase (ALT/SGPT) 56H, Alkaline Phosphatase 96, B-Type Natriuretic Peptide 21.0, Total Protein 7.3, Albumin 3.8 10/31/16 05:30: White Blood Count 12.8H, Red Blood Count 4.66, Hemoglobin 12.4, Hematocrit 41, Mean Corpuscular Volume 88, Mean Corpuscular Hemoglobin 27, Mean Corpuscular Hemoglobin Concent 30L, Red Cell Distribution Width 15.4H, Platelet Count 327, Mean Platelet Volume 11.1H, Neutrophils (%) (Auto) 82H, Lymphocytes (%) (Auto) 8L, Monocytes (%) (Auto) 10, Eosinophils (%) (Auto) 0, Basophils (%) (Auto) 0, Neutrophils # (Auto) 10.5H, Lymphocytes # (Auto) 1.0, Monocytes # (Auto) 1.3H, Eosinophils # (Auto) 0.0, Basophils # (Auto) 0.0, Prothrombin Time 15.0H, INR Comment 1.2, Sodium Level 140, Potassium Level 5.1H, Chloride Level 102, Carbon Dioxide Level 27, Anion Gap 11, Blood Urea Nitrogen 38H, Creatinine 0.85, Estimat Glomerular Filtration Rate > 60, BUN/Creatinine Ratio 45, Glucose Level 401*H, Calcium Level 9.7, Total Bilirubin 1.0, Aspartate Amino Transf (AST/SGOT ) 34, Alanine Aminotransferase (ALT/SGPT) 59H, Alkaline Phosphatase 105, Total Protein 6.8, Albumin 3.7, Hemoglobin A1c 8.6H 10/31/16 05:45: Glucometer 365H Radiology Date of Exam:10/30/16 CHEST 1 VIEW, AP/PA ONLY INDICATION: Pleural effusion, shortness of breath. TECHNIQUE: Single view chest at 1:51 PM. CORRELATION STUDY: 10/06/2016. FINDINGS: There is essentially complete opacification of the left hemithorax which is likely owing to a large left pleural effusion which has adversely increased and changed since the prior study. A small right pleural effusion has also developed and changed since the prior study. The heart size is largely obscured but does appear to be likely enlarged and slightly displaced towards the right. Fullness of the right amisha is noted and some underlying mass or adenopathy is not excluded. Multiple surgical clips over the right chest are present. There are likely old healed rib fracture deformities on the right. IMPRESSION: 1. The left hemithorax is completely opacified, likely owing to interval increase in size of a large left pleural effusion with the presence of an at least moderate sized right pleural effusion. 2. Fullness in the right amisha for which underlying adenopathy or mass lesion is not excluded. Assessment/Plan Assessment/Plan Plan 70 yo F with acute respiratory failure with hypoxia with h/o recurrent pleural effusions Plan Acute on Chronic Respiratory Failure with hypoxia likely 2/2 worsening pleural effusions - Dr Pfeiffer consulted and plans to put pleurex catheter today - Keep oxygen sat >92, titrate as tolerated, RT following patient - CT scan: with Large left pleural effusion Bilateral Pleural Effusions: See Above Non Insulin DM - SSI ordered, holding PO meds due to possible contrast study - Start Levemir 15 - A1c pending Elevated LFTs - Improved from yesterday - Hepatitis Panel pending - Needs CT abdomen to further evaluate liver, will do as outpatient Bilateral LE edema - Consider LE dopplers - BNP pending Hypothyroidism - Continue home dose, normal TSH last admission H/o Breast Ca FEN: NPO, DM diet after procedure DVT PPX: Lovenox, GFR >40, hold todays dose Dispo: Continue admission for procedure and blood sugar management Diagnosis/Problems: Clinical Quality Measures DVT/VTE Risk/Contraindication: Risk Factor Score Per Nursin RFS Level Per Nursing on Admit: 3=High JOHNNY GARZON MD Oct 31, 2016 10:54
[2016-10-31 12:51] VITALS: BP 136/84
[2016-10-31] MEDS ORDERED: LACTATED RINGERS 1,000 ML IV PRN (13:47)
[2016-10-31] MEDS ORDERED: FAMOTIDINE 20MG/2ML IV (PEPCID) ONE (13:53)
[2016-10-31] MEDS ORDERED: inSUlin (REGULAR) HUMAN 1 UNIT/0.01 ML (CHARGE PER UNIT) ONE (13:53)
[2016-10-31] MEDS ORDERED: MIDAZOLAM 2 MG/2 ML (VERSED) VIAL ONE (13:59)
[2016-10-31] MEDS ORDERED: ceFAZolin 1,000 MG (ANCEF) VIAL ONE (14:03)
--- NOTE | 2016-10-31 14:10 | Progress Note-Pre Operative ---
Pre-Operative Progress Note H&P Reviewed The H&P was reviewed, patient examined and no changes noted. Date Seen by Provider: Oct 31, 2016 Time Seen by Provider: 14:09 Date H&P Reviewed: Oct 31, 2016 Time H&P Reviewed: 14:09 Pre-Operative Diagnosis: left recurrent malignant pleural effusion CHAVEZ HARRIS DO Oct 31, 2016 14:10
--- NOTE | 2016-10-31 15:02 | Progress Note-Post Operative ---
Post-Operative Progess Note Surgeon (s)/Facilities Mechanical Design Engineer (s) Surgeon CHAVEZ HARRIS DO Facilities Mechanical Design Engineer: na Pre-Operative Diagnosis left recurrent malignant pleural effusion Post-Operative Diagnosis same Procedure & Operative Findings Date of Procedure 10/31/16 Procedure Performed/Findings placement left pleur-x catheter u/s guided Anesthesia Type per baseball player Estimated Blood Loss Estimated blood loss (mL): scant Specimens/Packing Specimens Removed na CHAVEZ HARRIS DO Oct 31, 2016 15:02
--- NOTE | 2016-10-31 15:13 | Diagnostic Imaging Report ---
EXAMINATION: Ultrasound of the left chest was performed for evaluation for effusion and guidance of thoracentesis Indication: Pleural effusion FINDINGS: There is a very large left pleural effusion. An appropriate area was marked for drainage catheter placement by Dr. Sanches. IMPRESSION: Left pleural effusion. Dictated by: Dictated on workstation # [id number]
[2016-10-31 15:30] VITALS: BP 120/84
--- NOTE | 2016-10-31 15:31 | Diagnostic Imaging Report ---
EXAMINATION: Portable upright radiograph of the chest. INDICATION: Status post PleurX catheter placement. FINDINGS: There is interval drainage of a very large left pleural effusion with a catheter in the pleural cavity seen inferiorly. There is incomplete expansion of the left lung with the left hemithorax demonstrating essentially a pneumothorax that is most likely secondary to trapped lung. There is improvement in the mass effect seen on the prior exam of 10/30/2016 on the trachea and mediastinum. The right lung demonstrates basilar atelectasis or infiltrate with a small to moderate effusion. The heart size is mildly enlarged. IMPRESSION: 1. Interval drainage of a very large left pleural effusion with a pleural catheter in place. There is about a 40% pneumothorax, probably secondary to trapped lung. 2. Small to moderate right pleural effusion. 3. The findings were discussed with Dr. Sanches at the time of dictation. Dictated by: Dictated on workstation # [id number]
--- NOTE | 2016-10-31 17:19 | Diagnostic Imaging Report ---
EXAM: Postoperative radiograph of the chest. INDICATION: Followup pneumothorax. FINDINGS: There is a 40% left pneumothorax after thoracentesis of a very large left effusion. This is probably secondary to trapped lung. The left lung which is partially expanded is opacified secondary to consolidation, atelectasis or edema. The right lung demonstrates basilar infiltrates or atelectasis with a small to moderate effusion. PleurX catheter in the left hemithorax inferiorly is seen. Surgical clips along the right breast area is noted. IMPRESSION: 1. Unchanged 40% pneumothorax on the left, probably secondary to trapped lung. 2. The partially expanded left lung is opacified which could be secondary to consolidation or edema. 3. Right basilar infiltrate or atelectasis with small to moderate effusion. Dictated by: Dictated on workstation # [id number]
[2016-10-31] MEDS: ENOXAPARIN 40 MG/0.4 ML (LOVENOX) SYR SC SCH (17:29)
[2016-10-31] MEDS: ASPIRIN E.C. 81 MG (ECOTRIN) TAB PO SCH (17:29)
[2016-10-31 19:50] VITALS: BP 132/81
[2016-10-31] MEDS: MONTELUKAST 10 MG (SINGULAIR) TAB PO SCH (20:17)
[2016-10-31] MEDS: SERTRALINE 50 MG (ZOLOFT) TABLET PO SCH (20:17)
[2016-10-31] MEDS: inSUlin DETERMIR 1 UNIT/0.01 ML (LEVEMIR) CHARGE PER UNIT SQ SCH (20:17)
[2016-11-01 00:54] VITALS: BP 117/69
[2016-11-01] MEDS: RT-ALBUTEROL/IPRATROPIUM 3 ML (DUONEB) VIAL INH SCH ×6 (02:34→22:13)
[2016-11-01 04:00] VITALS: BP 133/70
[2016-11-01] MEDS: ACETAMINOPHEN 325 MG TABLET/CAPLET (TYLENOL) PO PRN ×2 (04:47→23:59)
[2016-11-01] MEDS: inSUlin ASPART (NovoLOG) 1 UNIT/0.01 ML (CHARGE PER UNIT) SC SCH ×4 (05:43→21:50)
[2016-11-01] MEDS: PANTOPRAZOLE 20 MG TABLET (PROTONIX) PO SCH ×2 (06:09→21:50)
[2016-11-01] MEDS: LEVOTHYROXINE 125 MCG (LEVOTHROID) TABLET PO SCH (06:10)
[2016-11-01 06:34] LABS: BASOPHILS % (AUTO) 0 % (0-10); EOSINOPHILS % (AUTO) 0 % (0-10); LYMPHOCYTES # (AUTO) 1.1 X 10^3 (1.0-4.0); LYMPHOCYTES % (AUTO) 8 % (12-44); MEAN CORPUSCULAR HEMOGLOBIN 27 PG (25-34); MEAN CORPUSCULAR HGB CONC 31 G/DL (32-36); MEAN CORPUSCULAR VOLUME 86 FL (80-99); MEAN PLATELET VOLUME 11.1 FL (7.4-10.4); MONOCYTES # (AUTO) 1.3 X 10^3 (0.0-1.0); MONOCYTES % (AUTO) 10 % (0-12); NEUTROPHILS # (AUTO) 10.7 X 10^3 (1.8-7.8); NEUTROPHILS % (AUTO) 82 % (42-75); PLATELET COUNT 222 10^3/uL (130-400); RED BLOOD COUNT 5.06 10^6/uL (4.35-5.85); RED CELL DISTRIBUTION WIDTH 15.4 % (10.0-14.5)
[2016-11-01 07:03] LABS: ALANINE AMINOTRANSFERASE 66 U/L (0-55); ALBUMIN 2.7 GM/DL (3.2-4.5); ANION GAP 9 MMOL/L (5-14); ASPARTATE AMINO TRANSFERASE 58 U/L (5-34); BILIRUBIN,TOTAL 1.3 MG/DL (0.1-1.0); BLOOD UREA NITROGEN 34 MG/DL (7-18); BUN/CREATININE RATIO 52; CALCIUM 8.7 MG/DL (8.5-10.1); CARBON DIOXIDE 29 MMOL/L (21-32); CHLORIDE 103 MMOL/L (98-107); CREATININE SERUM 0.65 MG/DL (0.60-1.30); GFR ESTIMATED > 60; GLUCOSE 185 MG/DL (70-105); POTASSIUM 4.5 MMOL/L (3.6-5.0); SODIUM 141 MMOL/L (135-145); TOTAL PROTEIN 5.4 GM/DL (6.4-8.2)
--- NOTE | 2016-11-01 07:32 | OPERATIVE REPORT ---
DATE OF SERVICE: 10/31/2016 PREOPERATIVE DIAGNOSIS: Left recurrent malignant pleural effusion. POSTOPERATIVE DIAGNOSIS: Left recurrent malignant pleural effusion. PROCEDURE: Placement of left PleurX catheter, ultrasound-guided. SURGEON: Chavez Sanches DO. ANESTHESIA: Per ASSURANCE ANALYST. ESTIMATED BLOOD LOSS: Scant. COMPLICATIONS: None. INDICATIONS: The patient is a 70-year-old female with recurrent left pleural effusion that is malignant. The patient had previously been discussed risks and benefits of PleurX catheter, but declined at that time. She was readmitted and discussed with Dr. Pfeiffer, Dr. Miranda and myself, who were all in agreement that the patient would benefit from PleurX catheter placement. The patient understands risks and benefits of procedure and wished to proceed with the procedure. Consent was signed on the chart. DESCRIPTION OF PROCEDURE: The patient was taken to the operating suite. She was prepped and draped in sterile fashion. Surgical pause was performed. Ultrasound was used to find good insertion placed on the left mid axillary line. Local anesthetic was then infiltrated into the area and then also for tunneling purposes down inferiorly. A stab incision was made at the insertion point. An Angiocath needle was inserted in the chest and straw-colored fluid was returned. The catheter was inserted and the needle was removed. Guidewire was inserted in through the catheter and the catheter was removed. Another stab incision was made inferiorly for tunneling purposes. The PleurX catheter was then tunneled from the inferior towards the more superior incision. The cuff of the tube was placed between the two areas. Serial dilators were then advanced over the guidewire and removed. Until the dilator sheath was advanced over the guidewire, the dilator portion was removed along with the wire and the catheter was then placed through the sheath, and the sheath was then removed. The skin was then closed at the insertion point. The catheter was then secured at superior incision using 3-0 silk suture. A total of 3250 mL of straw-colored blood-tinged fluid was removed. The area was then washed and dried, sterile bandages were applied. The patient tolerated the procedure well without any complications. She was taken to the recovery room in stable condition. Chest x-ray pending. Job ID: [id number] DocumentID: [id number] Dictated Date: 10/31/2016 17:04:07 Plaster Mixer Date: 10/31/2016 22:44:37 Dictated By: CHAVEZ SANCHES DO
--- NOTE | 2016-11-01 07:33 | Pulmonary Progress Note ---
Subjective Time Seen by Provider: 06:12 Subjective/Events-last exam Pt feels improved post Pleurx cath placement. Exam Exam Vital Signs Date Time Temp Pulse Resp B/P (MAP) Pulse Ox O2 Delivery O2 Flow Rate FiO2 11/01/16 07:09 96 Nasal Cannula 3.00 11/01/16 04:00 97.8 88 19 133/70 94 Nasal Cannula 3.00 11/01/16 02:35 94 Nasal Cannula 3.00 11/01/16 00:54 97.7 98 18 117/69 95 Nasal Cannula 3.00 10/31/16 22:26 93 Nasal Cannula 3.00 10/31/16 20:00 Nasal Cannula 3.00 10/31/16 19:50 97.9 89 19 132/81 96 Room Air 4.00 10/31/16 18:57 93 Nasal Cannula 3.00 10/31/16 15:30 95.2 93 18 120/84 97 Room Air 4.00 10/31/16 12:51 97.6 110 20 136/84 99 Room Air 4.00 10/31/16 09:54 95 Nasal Cannula 4.00 10/31/16 08:05 97.4 109 20 118/65 95 Room Air 4.00 10/31/16 08:00 Nasal Cannula 3.50 General Appearance: Anxious, Mild Distress Neck: Full Range of Motion, Normal Inspection Respiratory: Accessory Muscle Use, Decreased Breath Sounds Cardiovascular: Regular Rate, Rhythm, No Edema Gastrointestinal: non tender, soft Neurologic/Psychiatric: Alert, Oriented x3 Skin: Normal Color, Warm/Dry Lymphatic: No Adenopathy Results Lab Laboratory Tests 10/30/16 15:20 10/31/16 05:30 11/01/16 05:55 Assessment/Plan Assessment/Plan Dyspnea Hx of Large malignant left pleural effusion and hx of breast cancer -s/p Pleurex catheter PTX -- probably trapped lung -CXR from yesterday shows small improvement. -repeat CXR today -Lung will probably not reexpand completely Dyspnea secondary to left effusion 233 Clinical Quality Measures DVT/VTE Risk/Contraindication: Risk Factor Score Per Nursin RFS Level Per Nursing on Admit: 3=High MERCEDES GARCIA DO Nov 01, 2016 07:32
[2016-11-01] MEDS: DICYCLOMINE 10 MG (BENTYL) CAP PO SCH ×4 (07:52→21:50)
[2016-11-01] MEDS: GABAPENTIN 300 MG (NEURONTIN) CAP PO SCH ×3 (07:52→21:50)
[2016-11-01 08:02] VITALS: BP 113/70
--- NOTE | 2016-11-01 09:30 | Diagnostic Imaging Report ---
EXAMINATION: Portable upright radiograph of the chest. INDICATION: Followup trapped lung on the left side with a pneumothorax. Shortness of breath. COMPARISON: 10/31/2016. FINDINGS: There is a slight decrease in the left pneumothorax, now about 30%, with persistent atelectasis in the left lung which demonstrates incomplete expansion and significant consolidation. There is no significant effusion appreciated. A left PleurX catheter is seen. The right lung demonstrates mild basilar atelectasis and a small to moderate effusion. IMPRESSION: 1. Slight improvement in the left pneumothorax, about 30% at this time, with persistent atelectasis of the left lung and underlying prominent consolidation or edema. 2. Right basilar atelectasis with a small to moderate right effusion. Dictated by: Dictated on workstation # [id number]
--- NOTE | 2016-11-01 11:38 | Anesthesia-General Post-Op ---
MAC Patient Condition Mental Status/LOC: Same as Preop Cardiovascular: Satisfactory Nausea/Vomiting: Absent Respiratory: Satisfactory Pain: Controlled Complications: Absent Post Op Complications Complications None Follow Up Care/Instructions Patient Instructions None needed. Anesthesiology Discharge Order Discharge Order Patient is doing well, no complaints, stable vital signs, no apparent adverse anesthesia problems. No complications reported per nursing. KARLA GONZALEZ CRNA Nov 01, 2016 11:38
--- NOTE | 2016-11-01 11:56 | Progress Note (SOAP) ---
Subjective Subjective/Events-last exam States that her shortness of breath is improving. She is very tired. Tolerating PO diet. Review of Systems Date Seen by Provider: Nov 01, 2016 Time Seen by Provider: 11:05 Cardiovascular: No: Chest Pain, Palpitations Gastrointestinal: No: Nausea, Vomiting, Diarrhea, Constipation Neurological: Weakness Objective Exam Last Set of Vital Signs Vital Signs Date Time Temp Pulse Resp B/P (MAP) Pulse Ox O2 Delivery O2 Flow Rate FiO2 11/01/16 10:37 94 Nasal Cannula 3.00 11/01/16 08:02 98.0 97 20 113/70 Capillary Refill : I&O Intake and Output 11/02/16 00:00 Intake Total 100 ml Output Total 640 ml Balance -540 ml Intake Oral 100 ml Drainage Total 640 ml # Urine Diapers 2 General: Alert, Oriented X3, Cooperative, Mild Distress Lungs: Other (Diminshed breath sounds, mild increase work of breathing, drain in place left chest) Heart: Regular Rate, No Murmurs Abdomen: Normal Bowel Sounds, Soft, No Tenderness Extremities: Other (2+ pitting edema) Psych/Mental Status: Mental Status NL, Mood NL Results/Procedures Lab Laboratory Tests 10/31/16 15:05: Glucometer 250H 10/31/16 16:42: Glucometer 262H 10/31/16 20:14: Glucometer 231H 11/01/16 05:41: Glucometer 180H 11/01/16 05:55: White Blood Count 13.0H, Red Blood Count 5.06, Hemoglobin 13.5, Hematocrit 44, Mean Corpuscular Volume 86, Mean Corpuscular Hemoglobin 27, Mean Corpuscular Hemoglobin Concent 31L, Red Cell Distribution Width 15.4H, Platelet Count 222, Mean Platelet Volume 11.1H, Neutrophils (%) (Auto) 82H, Lymphocytes (%) (Auto) 8L, Monocytes (%) (Auto) 10, Eosinophils (%) (Auto) 0, Basophils (%) (Auto) 0, Neutrophils # (Auto) 10.7H, Lymphocytes # (Auto) 1.1, Monocytes # (Auto) 1.3H, Eosinophils # (Auto) 0.0, Basophils # (Auto) 0.0, Sodium Level 141, Potassium Level 4.5, Chloride Level 103, Carbon Dioxide Level 29, Anion Gap 9, Blood Urea Nitrogen 34H, Creatinine 0.65, Estimat Glomerular Filtration Rate > 60, BUN/ Creatinine Ratio 52, Glucose Level 185H, Calcium Level 8.7, Total Bilirubin 1.3H , Aspartate Amino Transf (AST/SGOT) 58H, Alanine Aminotransferase (ALT/SGPT) 66H , Alkaline Phosphatase 82, Total Protein 5.4L, Albumin 2.7L 11/01/16 11:04: Glucometer 230H Radiology Date of Exam:10/30/16 CHEST 1 VIEW, AP/PA ONLY INDICATION: Pleural effusion, shortness of breath. TECHNIQUE: Single view chest at 1:51 PM. CORRELATION STUDY: 10/06/2016. FINDINGS: There is essentially complete opacification of the left hemithorax which is likely owing to a large left pleural effusion which has adversely increased and changed since the prior study. A small right pleural effusion has also developed and changed since the prior study. The heart size is largely obscured but does appear to be likely enlarged and slightly displaced towards the right. Fullness of the right amisha is noted and some underlying mass or adenopathy is not excluded. Multiple surgical clips over the right chest are present. There are likely old healed rib fracture deformities on the right. IMPRESSION: 1. The left hemithorax is completely opacified, likely owing to interval increase in size of a large left pleural effusion with the presence of an at least moderate sized right pleural effusion. 2. Fullness in the right amisha for which underlying adenopathy or mass lesion is not excluded. Assessment/Plan Assessment/Plan Plan 70 yo F with acute respiratory failure with hypoxia with h/o recurrent pleural effusions Plan Acute on Chronic Respiratory Failure with hypoxia likely 2/2 worsening pleural effusions, stable - Catheter in place and draining fluid Bilateral Pleural Effusions: See Above Non Insulin DM - SSI ordered, restart PO meds - Start Levemir 15 - A1c pending Elevated LFTs - Improved from yesterday - Hepatitis Panel NEG - Needs CT abdomen to further evaluate liver, will do as outpatient Bilateral LE edema - Consider LE dopplers - BNP pending Hypothyroidism - Continue home dose, normal TSH last admission H/o Breast Ca Debility - PT/OT ordered today FEN: DM diet DVT PPX: Lovenox, GFR >40 Dispo: Continue admission for procedure and blood sugar management Diagnosis/Problems: Clinical Quality Measures DVT/VTE Risk/Contraindication: Risk Factor Score Per Nursin RFS Level Per Nursing on Admit: 3=High JOHNNY GARZON MD Nov 01, 2016 11:56
[2016-11-01 12:00] VITALS: BP 110/69
--- NOTE | 2016-11-01 13:44 | Physical Therapy Evaluation ---
PT Evaluation-General Medical Diagnosis Admission Date Oct 30, 2016 at 13:18 Medical Diagnosis: pleural effusion Onset Date: Oct 30, 2016 Therapy Diagnosis Therapy Diagnosis: generalized weakness/debility Height/Weight Height (Feet): 5 Height (Inches): 2.00 Weight (Pounds): 172 Weight (Ounces): 8.0 Precautions Precautions/Isolations: Fall Prevention, Standard Precautions Referral Physician: Ruth Reason for Referral: Evaluation/Treatment Medical History Pertinent Medical History: DM, HTN, Hypothroidism, Neuropathy Additional Medical History recurrent pleural effusion new diagnosis of metastatic breast cancer Current History increase in SOA x 3 wks; hypoxia home O2 2-3L Reviewed History: Yes Social History Home: Single Level Current Living Status: paid caregiver Entry Into Home: Stairs With Railing PT Steps Into Home: 2 Prior/Core FIM Prior Level of Function Functional [place] Measure 0=Not Assessed/NA 4=Minimal Assistance 1=Total Assistance 5=Supervision or Setup 2=Maximal Assistance 6=Modified [place] 3=Moderate Assistance 7=Complete [place] Bed Mobility: 6 Transfers (B,C,W/C) (FIM): 6 Gait: 6 PT Evaluation-Current Subjective Patient agrees to PT. Pain Numeric Pain Scale: 5-Moderate Pain Location: Left Location Body Site: Side Pain Description: Pressure, Acute Comment: chest tube placement Objective Patient Orientation: Normal For Age Problem Solving: Fair Attachments: Chest Tube, Oxygen ROM/Strength ROM Lower Extremities bilateral LE WNL Strenght Lower Extremities 4/5 grossly bilateral LE all planes Integumentary/Posture Integumentary refer to nursing notes Bladder Incontinence: Yes Posture WNL Neuromuscular (Tone, Coordination, Reflexes) grossly intact Sensory Vision: Wears Glasses Hearing: Functional Sensation Right Lower Extremit: Impaired Sensation Left Lower Extremity: Impaired Transfers Functional [place] Measure 0=Not Assessed/NA 4=Minimal Assistance 1=Total Assistance 5=Supervision or Setup 2=Maximal Assistance 6=Modified [place] 3=Moderate Assistance 7=Complete [place] Transfers (B, C, W/C) (FIM): 4 Scootin Rollin Supine to/from Sit: 4 Sit to/from Stand: 4 bed t/f WC(FIM only if WC use): 4 Gait Mode of Locomotion: Walk Anticipated Mode of Locomotion: Walk Gait (FIM): 1 Distance (FIM): 1=up to 49 ft Distance: 5' x 2 Gait Level of Assist: 4 Gait Persons Needed: 1 Gait Assistive Device: FWW Comments/Gait Description functional with FWW Balance Sitting Static: Normal Sitting Dynamic: Normal Standing Static: Normal Standing Dynamic: Normal Assessment/Needs 70 y.o. female, will benefit from skilled PT to address functional strength and mobility to improve current LOF and to safely return to home or care facility at maximum LOF. Rehab Potential: Fair PT Prison Goals Engine Repair Supervisor Goals PT Prison Goals Time Frame: Nov 10, 2016 Transfers (B,C,W/C) (FIM): 6 Gait (FIM): 6 Gait distance (FIM): 3=150 ft Gait Assistive Device: FWW PT Plan Problem List Problem List: Activity Tolerance, Bed Mobility Treatment/Plan Treatment Plan: Continue Plan of Care Treatment Plan: Bed Mobility, Education, Functional Activity Bernardo, Functional Strength, Gait, Safety, Therapeutic Exercise, Transfers Treatment Duration: Nov 10, 2016 Frequency: 6 times per week Estimated Hrs Per Day: .25 hour per day Patient and/or Family Agrees t: Yes Discharge Recommendations Therapy D/C Recommendations: Assisted (TCU/NH) Time/GCodes Time In: 1225 Time Out: 1248 Total Billed Treatment Time: 23 Total Billed Treatment 1 visit EVModC 23 min G Codes Necessary: LUCAS Rodriguez PT Nov 01, 2016 13:44
[2016-11-01 16:16] VITALS: BP 116/70
[2016-11-01 20:16] VITALS: BP 111/65
--- NOTE | 2016-11-01 21:48 | Progress Note ---
Subjective Date Seen by Provider: Nov 01, 2016 Time Seen by Provider: 08:32 Subjective/Events-last exam Patient breathing slightly easier. She seems to be more comfortable. She states her pain is controlled. She had Pleurx drain placed which did drain the left pleural effusion. Postoperatively she did have 40 percent. This is likely secondary to trapped lung rather than pneumothorax. X-ray today demonstrating the same. Patient is fatigued. She has no other complaints. She 's tolerating diet. Denies any nausea vomiting fever sweats chills or chest pain. Objective Exam Vital Signs Date Time Temp Pulse Resp B/P (MAP) Pulse Ox O2 Delivery O2 Flow Rate FiO2 11/01/16 20:16 96.0 92 20 111/65 95 Nasal Cannula 3.00 11/01/16 16:16 96.2 90 19 116/70 98 Nasal Cannula 3.00 11/01/16 15:08 94 Nasal Cannula 3.00 11/01/16 12:00 97.5 104 20 110/69 95 Nasal Cannula 3.00 11/01/16 10:37 94 Nasal Cannula 3.00 11/01/16 09:00 Nasal Cannula 3.00 11/01/16 08:02 98.0 97 20 113/70 97 Nasal Cannula 3.00 11/01/16 07:09 96 Nasal Cannula 3.00 11/01/16 04:00 97.8 88 19 133/70 94 Nasal Cannula 3.00 11/01/16 02:35 94 Nasal Cannula 3.00 11/01/16 00:54 97.7 98 18 117/69 95 Nasal Cannula 3.00 10/31/16 22:26 93 Nasal Cannula 3.00 I & O 11/02/16 07:00 Intake Total 1220 ml Balance 1220 ml Capillary Refill : General Appearance: Anxious Neck: Full Range of Motion, Normal Inspection Respiratory: Decreased Breath Sounds Cardiovascular: Regular Rate, Rhythm, No Edema Gastrointestinal: non tender, soft, no organomegaly Extremity: Swelling (bilateral lower extremity) Neurologic/Psychiatric: Alert, Oriented x3 Skin: Normal Color, Warm/Dry Lymphatic: No Adenopathy Results Lab Laboratory Tests 11/01/16 05:41: Glucometer 180H 11/01/16 05:55: White Blood Count 13.0H, Red Blood Count 5.06, Hemoglobin 13.5, Hematocrit 44, Mean Corpuscular Volume 86, Mean Corpuscular Hemoglobin 27, Mean Corpuscular Hemoglobin Concent 31L, Red Cell Distribution Width 15.4H, Platelet Count 222, Mean Platelet Volume 11.1H, Neutrophils (%) (Auto) 82H, Lymphocytes (%) (Auto) 8L, Monocytes (%) (Auto) 10, Eosinophils (%) (Auto) 0, Basophils (%) (Auto) 0, Neutrophils # (Auto) 10.7H, Lymphocytes # (Auto) 1.1, Monocytes # (Auto) 1.3H, Eosinophils # (Auto) 0.0, Basophils # (Auto) 0.0, Sodium Level 141, Potassium Level 4.5, Chloride Level 103, Carbon Dioxide Level 29, Anion Gap 9, Blood Urea Nitrogen 34H, Creatinine 0.65, Estimat Glomerular Filtration Rate > 60, BUN/ Creatinine Ratio 52, Glucose Level 185H, Calcium Level 8.7, Total Bilirubin 1.3H , Aspartate Amino Transf (AST/SGOT) 58H, Alanine Aminotransferase (ALT/SGPT) 66H , Alkaline Phosphatase 82, Total Protein 5.4L, Albumin 2.7L 11/01/16 11:04: Glucometer 230H 11/01/16 15:55: Glucometer 292H 11/01/16 20:32: Glucometer 337H Microbiology 10/31/16 MRSA Screen - Final, Complete MRSA not isolated Assessment/Plan Assessment/Plan Assessment/Plan Dyspnea secondary to large left malignant pleural effusion that is recurrent History of breast cancer Status post Pleurx catheter placement left chest 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 Pfeiffer and I discussed if patient would benefit from VATS Provider this time we feel this would be more risky than beneficial for her. Pleurx catheter in place. Discussed with Dr. Pfeiffer who will manage from this point. I will sign off please call if needed. Clinical Quality Measures DVT/VTE Risk/Contraindication: Risk Factor Score Per Nursin RFS Level Per Nursing on Admit: 3=High CHAVEZ HARRIS DO Nov 01, 2016 21:48
[2016-11-01] MEDS: MONTELUKAST 10 MG (SINGULAIR) TAB PO SCH (21:50)
[2016-11-01] MEDS: SERTRALINE 50 MG (ZOLOFT) TABLET PO SCH (21:50)
[2016-11-01] MEDS: inSUlin DETERMIR 1 UNIT/0.01 ML (LEVEMIR) CHARGE PER UNIT SQ SCH (21:51)
[2016-11-02] VITALS: BP 111/55
[2016-11-02] MEDS: RT-ALBUTEROL/IPRATROPIUM 3 ML (DUONEB) VIAL INH SCH ×6 (03:02→21:03)
[2016-11-02 04:25] VITALS: BP 113/60
[2016-11-02 06:08] LABS: BASOPHILS % (AUTO) 0 % (0-10); EOSINOPHILS # (AUTO) 0.1 10^3/uL (0.0-0.3); EOSINOPHILS % (AUTO) 1 % (0-10); LYMPHOCYTES # (AUTO) 1.1 X 10^3 (1.0-4.0); LYMPHOCYTES % (AUTO) 12 % (12-44); MEAN CORPUSCULAR HEMOGLOBIN 27 PG (25-34); MEAN CORPUSCULAR HGB CONC 31 G/DL (32-36); MEAN CORPUSCULAR VOLUME 87 FL (80-99); MEAN PLATELET VOLUME 11.4 FL (7.4-10.4); MONOCYTES % (AUTO) 10 % (0-12); NEUTROPHILS # (AUTO) 7.3 X 10^3 (1.8-7.8); NEUTROPHILS % (AUTO) 77 % (42-75); PLATELET COUNT 165 10^3/uL (130-400); RED BLOOD COUNT 4.84 10^6/uL (4.35-5.85); RED CELL DISTRIBUTION WIDTH 15.5 % (10.0-14.5); WHITE BLOOD COUNT 9.5 10^3/uL (4.3-11.0)
[2016-11-02] MEDS: PANTOPRAZOLE 20 MG TABLET (PROTONIX) PO SCH ×2 (06:16→20:02)
[2016-11-02] MEDS: LEVOTHYROXINE 125 MCG (LEVOTHROID) TABLET PO SCH (06:16)
[2016-11-02] MEDS: inSUlin ASPART (NovoLOG) 1 UNIT/0.01 ML (CHARGE PER UNIT) SC SCH ×4 (06:16→21:44)
[2016-11-02 06:30] LABS: ALANINE AMINOTRANSFERASE 64 U/L (0-55); ALBUMIN 2.7 GM/DL (3.2-4.5); ANION GAP 9 MMOL/L (5-14); ASPARTATE AMINO TRANSFERASE 48 U/L (5-34); BLOOD UREA NITROGEN 23 MG/DL (7-18); BUN/CREATININE RATIO 38; CALCIUM 8.4 MG/DL (8.5-10.1); CARBON DIOXIDE 30 MMOL/L (21-32); CHLORIDE 102 MMOL/L (98-107); CREATININE SERUM 0.61 MG/DL (0.60-1.30); GFR ESTIMATED > 60; GLUCOSE 203 MG/DL (70-105); SODIUM 141 MMOL/L (135-145); TOTAL PROTEIN 5.2 GM/DL (6.4-8.2)
--- NOTE | 2016-11-02 08:02 | Diagnostic Imaging Report ---
INDICATION: Pleural effusion. Frontal chest obtained at 6:33 a.m. and compared to yesterday. FINDINGS: There is cardiomegaly. There is extensive infiltrate throughout the left lung. Left apical pneumothorax appears similar to yesterday's study without significant change. There is some minimal right basilar infiltrate versus atelectasis. There are surgical clips over the right axilla. IMPRESSION: Stable appearance compared to yesterday. There is extensive infiltrate throughout the left lung. The left apical pneumothorax is unchanged from yesterday. There is some mild infiltrate versus atelectasis in the right base. Dictated by: Dictated on workstation # [id number]
[2016-11-02] MEDS: DICYCLOMINE 10 MG (BENTYL) CAP PO SCH ×4 (08:18→20:02)
[2016-11-02] MEDS: GABAPENTIN 300 MG (NEURONTIN) CAP PO SCH ×3 (08:18→20:02)
[2016-11-02 08:30] VITALS: BP 110/58
[2016-11-02] MEDS ORDERED: PATIENT MAY USE OWN MED,SINGLE MED PO SCH (09:45)
--- NOTE | 2016-11-02 11:05 | Progress Note (SOAP) ---
Subjective Subjective/Events-last exam States that she is breathing more comfortably today. Denies any chest pain. Sitting up in chair this AM. Spoke with PT and patient had some difficulty standing yesterday but when she is up she is comfortable with ambulation. Review of Systems Date Seen by Provider: Nov 02, 2016 Time Seen by Provider: 10:15 General: No Chills, Fatigue Pulmonary: Dyspnea Cardiovascular: No: Chest Pain, Palpitations Neurological: No: Confusion Objective Exam Last Set of Vital Signs Vital Signs Date Time Temp Pulse Resp B/P (MAP) Pulse Ox O2 Delivery O2 Flow Rate FiO2 11/02/16 10:36 96 Nasal Cannula 3.00 11/02/16 08:30 97.1 85 20 110/58 Capillary Refill : Less Than 3 Seconds I&O Intake and Output 11/03/16 00:00 Intake Total 200 ml Output Total 890 ml Balance -690 ml Intake Oral 200 ml Output Urine Total 700 ml Drainage Total 190 ml Daily Weight Change Unsure General: Alert, Oriented X3, Cooperative, No Acute Distress Lungs: Other (Increased airmovement today, no accessory muscle use) Heart: Regular Rate, No Murmurs Abdomen: Normal Bowel Sounds, Soft, No Tenderness Extremities: Other (2+ pitting edema bilaterally) Neuro: Normal Speech, Sensation Intact, Cranial Nerves 3-12 NL Results/Procedures Lab Laboratory Tests 11/01/16 11:04: Glucometer 230H 11/01/16 15:55: Glucometer 292H 11/01/16 20:32: Glucometer 337H 11/02/16 05:03: Glucometer 206H 11/02/16 05:15: White Blood Count 9.5, Red Blood Count 4.84, Hemoglobin 12.9, Hematocrit 42, Mean Corpuscular Volume 87, Mean Corpuscular Hemoglobin 27, Mean Corpuscular Hemoglobin Concent 31L, Red Cell Distribution Width 15.5H, Platelet Count 165, Mean Platelet Volume 11.4H, Neutrophils (%) (Auto) 77H, Lymphocytes (%) (Auto) 12, Monocytes (%) (Auto) 10, Eosinophils (%) (Auto) 1, Basophils (%) (Auto) 0, Neutrophils # (Auto) 7.3, Lymphocytes # (Auto) 1.1, Monocytes # (Auto) 1.0, Eosinophils # (Auto) 0.1, Basophils # (Auto) 0.0, Sodium Level 141, Potassium Level 4.0, Chloride Level 102, Carbon Dioxide Level 30, Anion Gap 9, Blood Urea Nitrogen 23H, Creatinine 0.61, Estimat Glomerular Filtration Rate > 60, BUN/ Creatinine Ratio 38, Glucose Level 203H, Calcium Level 8.4L, Total Bilirubin 1.0 , Aspartate Amino Transf (AST/SGOT) 48H, Alanine Aminotransferase (ALT/SGPT) 64H , Alkaline Phosphatase 77, Total Protein 5.2L, Albumin 2.7L Microbiology 10/31/16 MRSA Screen - Final, Complete MRSA not isolated Radiology Date of Exam:10/30/16 CHEST 1 VIEW, AP/PA ONLY INDICATION: Pleural effusion, shortness of breath. TECHNIQUE: Single view chest at 1:51 PM. CORRELATION STUDY: 10/06/2016. FINDINGS: There is essentially complete opacification of the left hemithorax which is likely owing to a large left pleural effusion which has adversely increased and changed since the prior study. A small right pleural effusion has also developed and changed since the prior study. The heart size is largely obscured but does appear to be likely enlarged and slightly displaced towards the right. Fullness of the right amisha is noted and some underlying mass or adenopathy is not excluded. Multiple surgical clips over the right chest are present. There are likely old healed rib fracture deformities on the right. IMPRESSION: 1. The left hemithorax is completely opacified, likely owing to interval increase in size of a large left pleural effusion with the presence of an at least moderate sized right pleural effusion. 2. Fullness in the right amisha for which underlying adenopathy or mass lesion is not excluded. Assessment/Plan Assessment/Plan Plan 70 yo F with acute respiratory failure with hypoxia with h/o recurrent pleural effusions Plan Acute on Chronic Respiratory Failure with hypoxia likely 2/2 worsening pleural effusions, now on baseline oxygen - Catheter in place and draining fluid Bilateral Pleural Effusions: See Above Non Insulin DM - SSI ordered, Continue PO meds and Levemir - A1c 8.6, (up from 7.0) in clinic Elevated LFTs - Improved from yesterday - Hepatitis Panel NEG - Needs CT abdomen to further evaluate liver, will do as outpatient Bilateral LE edema - Consider LE dopplers - BNP normal Hypothyroidism - Continue home dose, normal TSH last admission H/o Breast Ca Debility - PT/OT ordered today FEN: DM diet DVT PPX: Lovenox, GFR >40 Dispo: Continue admission for blood sugar control, Increase activity and ambulation today, may need Swing bed, will evaluate tomorrow Diagnosis/Problems: Clinical Quality Measures DVT/VTE Risk/Contraindication: Risk Factor Score Per Nursin RFS Level Per Nursing on Admit: 3=High JOHNNY GARZON MD Nov 02, 2016 11:05
--- NOTE | 2016-11-02 11:49 | Physical Therapy Daily Note ---
PT Daily Note-Current Subjective Pt sitting in recliner upon arrival. Pt agrees to walking with PT since Dr is wanting so pt can discharge. Pain Location: No Pain Reported Mental Status Patient Orientation: Person, MR Attachments: Chest Tube, Oxygen (3L) Transfers Functional [place] Measure 0=Not Assessed/NA 4=Minimal Assistance 1=Total Assistance 5=Supervision or Setup 2=Maximal Assistance 6=Modified [place] 3=Moderate Assistance 7=Complete IndependenceIRFPAI Quality Coding Scale 6 Independent with activity with or without an assistive device 5 Patient requires set up or clean up by helper. Patient completes activity by themselves 4 Supervision or touching assist ([facility]). [place] provide cues , steadying assist 3 The helper provides less than half the effort to complete the activity 2 The helper provides more than half the effort to complete the activity 1 Dependent. The helper does all the effort to complete an activity 7 Patient refused to complete or attempt activity 9 The patient did not perform the activity before the current illness or injury 88 Not attempted due to Medical conditions or safety concerns Scootin Sit to/from Stand: 4 Weight Bearing Weight Bearing Restriction: Full Weight Bearing Location Restriction: LE Bilateral Gait Training Distance (FIM): 5=551-66 ft Distance: 60' Gait Level of Assist: 4 Gait Persons Needed: 1 Gait Assistive Device: FWW Pt walks with slow but steady gait, no LOB. Pt fatigues easy. Treatments Pt transferred from recliner to [facility] to use before walk. Pt transferred from BS to standing using FWW at [facility]. Pt ambulated in hallway before needing to return to recliner to rest at end of tx with all needs met. Assessment Current Status: Good Progress Pt was able to transfer and ambulate with little difficulty. PT Antenna Machine Operator Goals Half-Way Goals PT Antenna Machine Operator Goals Time Frame: Nov 10, 2016 Transfers (B,C,W/C) (FIM): 6 Gait (FIM): 6 Gait distance (FIM): 3=150 ft Gait Assistive Device: FWW PT Plan Problem List Problem List: Activity Tolerance, Functional Strength, Safety Treatment/Plan Treatment Plan: Continue Plan of Care Treatment Plan: Bed Mobility, Education, Functional Activity Bernardo, Functional Strength, Gait, Safety, Therapeutic Exercise, Transfers Treatment Duration: Nov 10, 2016 Frequency: 6 times per week Estimated Hrs Per Day: .25 hour per day Patient and/or Family Agrees t: Yes Safety Risks/Education Patient Education: Gait Training, Transfer Techniques Teaching Recipient: Patient Teaching Methods: Discussion Response to Teaching: Verbalize Understanding Time/GCodes Time In: 1040 Time Out: 1105 Total Billed Treatment Time: 25 Total Billed Treatment visit, FA (10m) & GT (15m) CRISTINA SCHULTE HOURLY SHIFT MANAGER Nov 02, 2016 11:49
[2016-11-02 12:00] VITALS: BP 112/56
[2016-11-02 16:39] VITALS: BP 96/61
[2016-11-02] MEDS: MONTELUKAST 10 MG (SINGULAIR) TAB PO SCH (20:02)
[2016-11-02] MEDS: SERTRALINE 50 MG (ZOLOFT) TABLET PO SCH (20:02)
[2016-11-02 20:40] VITALS: BP 129/60
[2016-11-02] MEDS: inSUlin DETERMIR 1 UNIT/0.01 ML (LEVEMIR) CHARGE PER UNIT SQ SCH (21:44)
[2016-11-02] MEDS: ACETAMINOPHEN 325 MG TABLET/CAPLET (TYLENOL) PO PRN (21:46)
[2016-11-03] VITALS: BP 115/72
[2016-11-03] MEDS: RT-ALBUTEROL/IPRATROPIUM 3 ML (DUONEB) VIAL INH SCH ×2 (02:00→07:19)
[2016-11-03 04:00] VITALS: BP 123/69
[2016-11-03] MEDS: PANTOPRAZOLE 20 MG TABLET (PROTONIX) PO SCH (06:02)
[2016-11-03] MEDS: inSUlin ASPART (NovoLOG) 1 UNIT/0.01 ML (CHARGE PER UNIT) SC SCH (06:03)
[2016-11-03] MEDS: LEVOTHYROXINE 125 MCG (LEVOTHROID) TABLET PO SCH (06:03)
--- NOTE | 2016-11-03 07:35 | Diagnostic Imaging Report ---
Portable upright radiograph of the chest. INDICATION: Followup pneumothorax. COMPARISON: 11/02/2016. FINDINGS: There is interval improvement of expansion of the left lung with also decreased consolidation. There is remaining 10% left pneumothorax. A pleural catheter is seen inferiorly in the left hemothorax. There is mild infiltrate or atelectasis in the right lung base and small/ moderate joint effusion. The heart size is enlarged. Surgical clips along the right breast and in the upright abdomen seen. IMPRESSION: 1. Interval improvement in expansion of the left lung with remaining 10% pneumothorax and improving left lung consolidation. 2. Unchanged right basilar infiltrate or atelectasis and small/ moderate effusion. Dictated by: Dictated on workstation # [id number]
[2016-11-03 08:00] VITALS: BP 124/82
[2016-11-03] MEDS: DICYCLOMINE 10 MG (BENTYL) CAP PO SCH (08:12)
[2016-11-03] MEDS: GABAPENTIN 300 MG (NEURONTIN) CAP PO SCH (08:12)
--- NOTE | 2016-11-03 09:59 | Physical Therapy Daily Note ---
PT Daily Note-Current Subjective Patient agrees to PT. Pain Numeric Pain Scale: 0-No Pain Location: No Pain Reported Mental Status Patient Orientation: Normal For Age Attachments: Chest Tube, Oxygen Transfers Functional [place] Measure 0=Not Assessed/NA 4=Minimal Assistance 1=Total Assistance 5=Supervision or Setup 2=Maximal Assistance 6=Modified [place] 3=Moderate Assistance 7=Complete IndependenceIRFPAI Quality Coding Scale 6 Independent with activity with or without an assistive device 5 Patient requires set up or clean up by helper. Patient completes activity by themselves 4 Supervision or touching assist ([facility]). [place] provide cues , steadying assist 3 The helper provides less than half the effort to complete the activity 2 The helper provides more than half the effort to complete the activity 1 Dependent. The helper does all the effort to complete an activity 7 Patient refused to complete or attempt activity 9 The patient did not perform the activity before the current illness or injury 88 Not attempted due to Medical conditions or safety concerns Transfers (B, C, W/C) (FIM): 5 Scootin Sit to/from Stand: 5 Gait Training Gait (FIM): 5 Distance (FIM): 3=150 ft Distance: 300' Gait Level of Assist: 5 Gait Persons Needed: 1 Gait Assistive Device: FWW safe and functional gait sequence with assist for O2 tank Exercises Seated Therapy Exercises: Ankle pumps, Long arc quads Seated Reps: 25 Assessment Patient much improved with pulmonary function with therapy. Patient is motivated with progress. PT Director Of Teenage Activities Goals Prison Goals PT Prison Goals Time Frame: Nov 10, 2016 Transfers (B,C,W/C) (FIM): 6 Gait (FIM): 6 Gait distance (FIM): 3=150 ft Gait Assistive Device: FWW PT Plan Treatment/Plan Treatment Plan: Continue Plan of Care Treatment Plan: Bed Mobility, Education, Functional Activity Bernardo, Functional Strength, Gait, Safety, Therapeutic Exercise, Transfers Treatment Duration: Nov 10, 2016 Frequency: 6 times per week Estimated Hrs Per Day: .25 hour per day Patient and/or Family Agrees t: Yes Time/GCodes Time In: 852 Time Out: 907 Total Billed Treatment Time: 15 Total Billed Treatment 1 visit GT 15 min LUCAS SINGLETARY PT Nov 03, 2016 09:59
--- NOTE | 2016-11-03 10:01 | Pulmonary Progress Note ---
Subjective Time Seen by Provider: 10:00 Subjective/Events-last exam CXR shows improvement in PTX Exam Exam Vital Signs Date Time Temp Pulse Resp B/P (MAP) Pulse Ox O2 Delivery O2 Flow Rate FiO2 11/03/16 07:22 96 Nasal Cannula 3.00 11/03/16 04:00 98.0 78 15 123/69 94 Nasal Cannula 3.00 11/03/16 00:00 97.8 87 14 115/72 95 Nasal Cannula 3.00 11/02/16 21:03 98 Nasal Cannula 3.00 11/02/16 21:00 Nasal Cannula 3.00 11/02/16 20:40 96.9 92 20 129/60 96 Nasal Cannula 3.00 11/02/16 16:39 96.3 88 20 96/61 97 Nasal Cannula 3.00 11/02/16 13:55 96 Nasal Cannula 3.00 11/02/16 12:00 97.5 90 20 112/56 99 Nasal Cannula 3.00 11/02/16 10:36 96 Nasal Cannula 3.00 General Appearance: No Apparent Distress, Anxious Neck: Full Range of Motion, Normal Inspection Respiratory: Accessory Muscle Use, Decreased Breath Sounds Cardiovascular: Regular Rate, Rhythm, No Edema Gastrointestinal: non tender, soft Extremity: Swelling (bilateral lower extremity) Neurologic/Psychiatric: Alert, Oriented x3 Skin: Normal Color, Warm/Dry Lymphatic: No Adenopathy Results Lab Laboratory Tests 11/02/16 05:15 Assessment/Plan Assessment/Plan Dyspnea Hx of Large malignant left pleural effusion and hx of breast cancer -s/p Pleurex catheter PTX --improving -CXR from yesterday shows small improvement. -repeat CXR daily -Lung will probably not reexpand completely Dyspnea secondary to left effusion 232 Clinical Quality Measures DVT/VTE Risk/Contraindication: Risk Factor Score Per Nursin RFS Level Per Nursing on Admit: 3=High MERCEDES GARCIA DO Nov 03, 2016 10:01
--- NOTE | 2016-11-03 10:21 | Discharge Summary ---
Diagnosis/Chief Complaint Date of Admission Oct 30, 2016 at 13:18 Date of Discharge 11/03/2016 Admission Diagnosis Admission Diagnosis Acute on Chronic Respiratory Failure Bilateral Malignant Pleural Effusions Insulin Dependent DM Hypothyroidism Debility Elevated LFTs Discharge Diagnosis See Above Chief Complaint/HPI Chief Complaint/HPI 70 yo F that was a direct admission from [facility] walk in care for increasing shortness of breath with hypoxia. Patient states that she has been having worsening shortness of breath for the last 3 weeks but today was a lot worse to the point that she could not tolerate getting out of bed. She has a home oxygen requirement of 2-3 L. Recent admission for pleural effusion that was drained and she was then sent home with oxygen. Pleural effusion was thought to be related to recurrent breast cancer. Dr Pfeiffer has previously spoke to patient and caregivers non medical about pleurex drain and they are wanting to discuss further because patient feels like the fluid is reaccumulating. Patient states that Dr Felder recently took her off her Motrin and since then her pain has been much worse and has hindered her ambulation. Denies any chest pain or palpitations, No N/V or abdominal pain. Discharge Summary-Simple/Stand Consultations Dr Margarette MD, Pulmonology Dr Verónica DO, General Surgery Discharge Physical Examination Allergies: Coded Allergies: latex (Verified Allergy, Unknown, 08/31/16) Vitals & I&Os Vital Sign - Last 12Hours Date Time Temp Pulse Resp B/P (MAP) Pulse Ox O2 Delivery O2 Flow Rate FiO2 11/03/16 08:13 Nasal Cannula 3.00 11/03/16 08:00 97.3 94 18 124/82 96 General Appearance: Alert, Oriented X3, Cooperative, No Acute Distress HEENT: PERRLA, Mucous Memb Moist/[place] Respiratory: Clear to Auscultation, Other (Distant heart sounds) Cardiovascular: Regular Rate, No Murmurs Abdominal: Normal Bowel Sounds, Soft, No Tenderness, No Hepatosplenomegaly Extremities: Other (bilateral LE swelling) Skin: No Rashes, No Breakdown Neuro: Normal Gait, Normal Speech, Strength at 5/5 X4 Ext, Sensation Intact, Cranial Nerves 3-12 NL Psych/Mental Status: Mental Status NL, Mood NL Hospital Course See final discharge diagnosis. Radiology Reviewed Date of Exam:10/30/16 CHEST 1 VIEW, AP/PA ONLY INDICATION: Pleural effusion, shortness of breath. TECHNIQUE: Single view chest at 1:51 PM. CORRELATION STUDY: 10/06/2016. FINDINGS: There is essentially complete opacification of the left hemithorax which is likely owing to a large left pleural effusion which has adversely increased and changed since the prior study. A small right pleural effusion has also developed and changed since the prior study. The heart size is largely obscured but does appear to be likely enlarged and slightly displaced towards the right. Fullness of the right amisha is noted and some underlying mass or adenopathy is not excluded. Multiple surgical clips over the right chest are present. There are likely old healed rib fracture deformities on the right. IMPRESSION: 1. The left hemithorax is completely opacified, likely owing to interval increase in size of a large left pleural effusion with the presence of an at least moderate sized right pleural effusion. 2. Fullness in the right amisha for which underlying adenopathy or mass lesion is not excluded. Discussion & Recommendations Acute on Chronic Respiratory Failure with hypoxia likely 2/2 worsening pleural effusions, now on baseline oxygen - Catheter in place and draining fluid Bilateral Pleural Effusions with Left Pneumothorax: See Above Non Insulin DM - SSI ordered, Continue PO meds and Levemir - A1c 8.6, (up from 7.0) in clinic Elevated LFTs - Hepatitis Panel NEG - Needs CT abdomen to further evaluate liver, will do as outpatient Bilateral LE edema - BNP normal Hypothyroidism - Continue home dose, normal TSH last admission H/o Breast Ca Debility - PT/OT during admission Patient transferred to Swing bed. Plan to discharge at the beginning of next week per Dr Pfeiffer Discharge Instructions to patient/family Please see electronic discharge instructions given to patient. Discharge Medications Reviewed and agree with Discharge Medication list on patient's Discharge Instruction sheet Clinical Quality Measures DVT/VTE Risk/Contraindication: Risk Factor Score Per Nursin RFS Level Per Nursing on Admit: 3=High Copy Copies To 1: CASEY, JOHNNY Ortiz MD Nov 03, 2016 10:21
== END 2016-11-03 10:23 | disposition swing bed (61) | DRG 189 ==
LOC: 4TH 13:18
PROVIDERS: ADMIT Family Medicine; ATTEND Family Medicine
PROC: 0W9B30Z Drainage of Left Pleural Cavity with Drainage Device, Percutaneous Approach (ICD-10-PCS; principal; 2016-10-31 13:15)
DX: J96.21 Acute and chronic respiratory failure with hypoxia (principal); J91.0 Malignant pleural effusion; J93.9 Pneumothorax, unspecified; Z85.3 Personal history of malignant neoplasm of breast; E11.42 Type 2 diabetes mellitus with diabetic polyneuropathy; I10 Essential (primary) hypertension; I89.0 Lymphedema, not elsewhere classified; E89.0 Postprocedural hypothyroidism; E78.00 Pure hypercholesterolemia, unspecified; R74.8 Abnormal levels of other serum enzymes; K21.9 Gastro-esophageal reflux disease without esophagitis; M19.91 Primary osteoarthritis, unspecified site; M54.9 Dorsalgia, unspecified; E66.9 Obesity, unspecified; J30.2 Other seasonal allergic rhinitis; G47.9 Sleep disorder, unspecified; F41.9 Anxiety disorder, unspecified; F32.9 Major depressive disorder, single episode, unspecified; K58.9 Irritable bowel syndrome, unspecified; K57.90 Diverticulosis of intestine, part unspecified, without perforation or abscess without bleeding; R13.10 Dysphagia, unspecified; Z99.81 Dependence on supplemental oxygen; Z87.891 Personal history of nicotine dependence; Z68.31 Body mass index [BMI] 31.0-31.9, adult; Z79.84 Long term (current) use of oral hypoglycemic drugs; Z86.010 Personal history of colon polyps
CPT/HCPCS: 36415; 71010; 71260; 76705; 80053; 80074; 82962; 83036; 83880; 85007; 85025; 85027; 85610; 85730; 87081; 94640; 94760

== ENCOUNTER 2016-11-03 10:00 | Inpatient (IN) | payer MEDICARE, MEDICAID ==
[~2016-11-03] VITALS: Ht 157.5 cm; Wt 76.4 kg
[~2016-11-03 10:00] MED LIST changes: +ACET325T38 PO; +OMG1KC PO
[2016-11-03] MEDS ORDERED: RT-ALBUTEROL/IPRATROPIUM 3 ML (DUONEB) VIAL ONE (10:35)
[2016-11-03] MEDS: RT-ALBUTEROL/IPRATROPIUM 3 ML (DUONEB) VIAL INH SCH ×4 (11:15→22:22)
[2016-11-03] MEDS: inSUlin ASPART (NovoLOG) 1 UNIT/0.01 ML (CHARGE PER UNIT) SC SCH ×3 (11:41→21:07)
[2016-11-03] MEDS: DICYCLOMINE 10 MG (BENTYL) CAP PO SCH ×3 (13:32→21:07)
[2016-11-03] MEDS: GABAPENTIN 300 MG (NEURONTIN) CAP PO SCH ×2 (13:32→21:07)
--- NOTE | 2016-11-03 14:51 | Physical Therapy Evaluation ---
PT Evaluation-General Medical Diagnosis Admission Date Nov 03, 2016 at 10:24 Medical Diagnosis: pleural effusion Onset Date: Oct 30, 2016 Therapy Diagnosis Therapy Diagnosis: debility Height/Weight Height (Feet): 5 Height (Inches): 2.00 Weight (Pounds): 168 Weight (Ounces): 8.0 Precautions Precautions/Isolations: Standard Precautions Referral Physician: Avinash Reason for Referral: Evaluation/Treatment Medical History Pertinent Medical History: DM, HTN, Hypothroidism, Neuropathy Additional Medical History recurrent pleural effusion metastatic breast cancer Current History SWB status Reviewed History: Yes Social History Home: Single Level Current Living Status: Alone Entry Into Home: Stairs With Railing PT Steps Into Home: 2 Prior/Core FIM Prior Level of Function Functional [place] Measure 0=Not Assessed/NA 4=Minimal Assistance 1=Total Assistance 5=Supervision or Setup 2=Maximal Assistance 6=Modified [place] 3=Moderate Assistance 7=Complete [place] Bed Mobility: 6 Transfers (B,C,W/C) (FIM): 6 Gait: 6 uses FWW; has caregiver 20 hrs/wk PT Evaluation-Current Subjective Patient is very agreeable to participate with PT. Pain Numeric Pain Scale: 0-No Pain Location: No Pain Reported Objective Patient Orientation: Normal For Age Problem Solving: Fair Attachments: Chest Tube, Oxygen (3L) ROM/Strength ROM Lower Extremities bilateral LE WNL Strenght Lower Extremities bilateral LE 4/5 grossly Integumentary/Posture Integumentary refer to nursing notes Bowel Incontinence: No Bladder Incontinence: No Posture WNL Neuromuscular (Tone, Coordination, Reflexes) grossly intact Sensory Vision: Wears Glasses Hearing: Functional Sensation Right Lower Extremit: Impaired Sensation Left Lower Extremity: Impaired Transfers Functional [place] Measure 0=Not Assessed/NA 4=Minimal Assistance 1=Total Assistance 5=Supervision or Setup 2=Maximal Assistance 6=Modified [place] 3=Moderate Assistance 7=Complete [place] Transfers (B, C, W/C) (FIM): 5 Scootin Rollin Supine to/from Sit: 5 Sit to/from Stand: 5 Sit to Lying (QC): 4 Lying to Sitting/Side of Bed(Q: 4 Sit to Stand (QC): 4 Chair/Rsm-dx-Rmuqa Xfer(QC): 4 Gait Does the Patient Walk?: Yes Mode of Locomotion: Walk Anticipated Mode of Locomotion: Walk Gait (FIM): 5 Distance (FIM): 3=150 ft Distance: 300' Walk 50 ft with 2 Turns(QC): 4 Walk 150 ft (QC): 4 Gait Level of Assist: 5 Gait Persons Needed: 1 Gait Assistive Device: FWW Comments/Gait Description safe and functional Balance Sitting Static: Normal Sitting Dynamic: Normal Standing Static: Normal Standing Dynamic: Normal Treatment Gait training with FWW to improve functional mobility and improve pulmonary function. Patient ambulates 300' SBA with Good balance with use of FWW. Assessment/Needs 70 y.o. female, will benefit from skilled PT to address functional strength and mobility to improve current LOF and to safely return to home, with caregiver 20 hr/wk and possibly home health. Rehab Potential: Good PT Jail Goals Jail Goals PT Casino Manager Goals Time Frame: Nov 10, 2016 Transfers (B,C,W/C) (FIM): 6 Sit to Lying (QC): 5 Lying-Sitting on Side/Bed(QC): 5 Sit to Stand (QC): 5 Rollin Chair/Una-wo-Xdlyq Xfer(QC): 5 Does the Patient Walk: Yes Gait (FIM): 6 Gait distance (FIM): 3=150 ft Distance: 350' Walk 50ft with 2 Turns (QC): 5 Walk 150 ft (QC): 5 Gait Level of Assist: 6 Gait Assistive Device: FWW PT Plan Treatment/Plan Treatment Plan: Continue Plan of Care Treatment Plan: Education, Functional Activity Bernardo, Functional Strength, Gait , Safety, Therapeutic Exercise Treatment Duration: Nov 10, 2016 Frequency: 6 times per week Estimated Hrs Per Day: .25 hour per day Patient and/or Family Agrees t: Yes Safety Risks/Education Patient Education: Safety Issues Teaching Recipient: Patient Teaching Methods: Discussion Response to Teaching: Verbalize Understanding Discharge Recommendations Therapy D/C Recommendations: Home w/ Family Support (caregiver) Time/GCodes Time In: 1300 Time Out: 1325 Total Billed Treatment Time: 25 Total Billed Treatment 1 visit Elpidio 10 min GT 15 min LUCAS SINGLETARY PT Nov 03, 2016 14:51
[2016-11-03 17:51] VITALS: BP 116/82
[2016-11-03] MEDS: inSUlin DETERMIR 1 UNIT/0.01 ML (LEVEMIR) CHARGE PER UNIT SQ SCH (21:07)
[2016-11-03] MEDS: PANTOPRAZOLE 20 MG TABLET (PROTONIX) PO SCH (21:07)
[2016-11-03] MEDS: SERTRALINE 50 MG (ZOLOFT) TABLET PO SCH (21:07)
[2016-11-03] MEDS: MONTELUKAST 10 MG (SINGULAIR) TAB PO SCH (21:07)
[2016-11-04] MEDS: RT-ALBUTEROL/IPRATROPIUM 3 ML (DUONEB) VIAL INH SCH ×6 (02:17→23:10)
[2016-11-04 05:00] VITALS: BP 153/86
[2016-11-04] MEDS: LEVOTHYROXINE 125 MCG (LEVOTHROID) TABLET PO SCH (06:10)
[2016-11-04] MEDS: PANTOPRAZOLE 20 MG TABLET (PROTONIX) PO SCH ×2 (06:10→21:46)
[2016-11-04] MEDS: inSUlin ASPART (NovoLOG) 1 UNIT/0.01 ML (CHARGE PER UNIT) SC SCH ×4 (06:10→21:46)
--- NOTE | 2016-11-04 07:36 | Diagnostic Imaging Report ---
Indication: Hypoxia. Comparison: 11/03/2016. Findings: Stable small left apical pneumothorax with approximately 1 cm of apical pleural separation. Left chest tube remains in place. Left basilar heterogeneous consolidations have improved. Left upper lobe consolidations have also improved. Right bibasilar atelectasis is similar. Probable small bilateral pleural effusions are similar. Stable cardiomediastinal silhouette. Stable axillary clips. Impression: 1. No change in small left apical pneumothorax. Left chest tube remains in place. 2. Improving but persistent left lung opacities. 3. Probable small bilateral layering pleural effusions are similar. Dictated by: Dictated on workstation # [id number]
[2016-11-04] MEDS: GABAPENTIN 300 MG (NEURONTIN) CAP PO SCH ×3 (08:03→21:46)
[2016-11-04] MEDS: DICYCLOMINE 10 MG (BENTYL) CAP PO SCH ×4 (08:03→21:46)
--- NOTE | 2016-11-04 09:49 | Physical Therapy Daily Note ---
PT Daily Note-Current Subjective Pt agreeable and ready to walk with PT. Pt denies pain. Mental Status Patient Orientation: Person, Place, Situation Attachments: Chest Tube, Oxygen O2 at 3L/min per nasal canula. Used portable O2 during gait training. O2 insutu post therapy. Transfers Functional [place] Measure 0=Not Assessed/NA 4=Minimal Assistance 1=Total Assistance 5=Supervision or Setup 2=Maximal Assistance 6=Modified [place] 3=Moderate Assistance 7=Complete IndependenceIRFPAI Quality Coding Scale 6 Independent with activity with or without an assistive device 5 Patient requires set up or clean up by helper. Patient completes activity by themselves 4 Supervision or touching assist (CGA). [place] provide cues , steadying assist 3 The helper provides less than half the effort to complete the activity 2 The helper provides more than half the effort to complete the activity 1 Dependent. The helper does all the effort to complete an activity 7 Patient refused to complete or attempt activity 9 The patient did not perform the activity before the current illness or injury 88 Not attempted due to Medical conditions or safety concerns Gait Training Gait Assistive Device: FWW Pt amb with FWW and O2 at 3L/min x 300ft. Pt ambulated with steady gait, FWW and SBA Exercises Supine Ex: Heel Slides Seated Therapy Exercises: Ankle pumps, Long arc quads Seated Reps: 30 Treatments Pt seated in bedside chair. All transfers SBA. Nurse assist with chest tube for walking. Nurse present post therapy. Pt on commode with call light post therapy session. Nurse aware. Assessment Current Status: Good Progress PT stephanie well. Pt showing good endurance and good balance throughout treatment. Pt with call light post therapy. PT Half-Way Goals Sales And Leasing Consultant Goals PT Half-Way Goals Time Frame: Nov 10, 2016 Transfers (B,C,W/C) (FIM): 6 Sit to Lying (QC): 5 Lying-Sitting on Side/Bed(QC): 5 Sit to Stand (QC): 5 Rollin Chair/Sgl-fl-Xdqev Xfer(QC): 5 Does the Patient Walk: Yes Gait (FIM): 6 Gait distance (FIM): 3=150 ft Distance: 350' Walk 50ft with 2 Turns (QC): 5 Walk 150 ft (QC): 5 Gait Level of Assist: 6 Gait Assistive Device: FWW PT Plan Treatment/Plan Treatment Plan: Continue Plan of Care Treatment Plan: Education, Functional Activity Bernardo, Functional Strength, Gait , Safety, Therapeutic Exercise Treatment Duration: Nov 10, 2016 Frequency: 6 times per week Estimated Hrs Per Day: .25 hour per day Patient and/or Family Agrees t: Yes Time/GCodes Time In: 835 Time Out: 900 Total Billed Treatment Time: 25 Total Billed Treatment 1, ther ex 10min, gait 15min MICHAEL DAI CPTA Nov 04, 2016 09:49
[2016-11-04 18:59] VITALS: BP 111/64
[2016-11-04] MEDS: MONTELUKAST 10 MG (SINGULAIR) TAB PO SCH (21:46)
[2016-11-04] MEDS: SERTRALINE 50 MG (ZOLOFT) TABLET PO SCH (21:46)
[2016-11-04] MEDS: inSUlin DETERMIR 1 UNIT/0.01 ML (LEVEMIR) CHARGE PER UNIT SQ SCH (21:47)
[2016-11-04] MEDS: ACETAMINOPHEN 325 MG TABLET/CAPLET (TYLENOL) PO PRN (23:51)
[2016-11-05] MEDS: RT-ALBUTEROL/IPRATROPIUM 3 ML (DUONEB) VIAL INH SCH ×6 (02:55→22:22)
[2016-11-05 06:00] VITALS: BP 132/87
[2016-11-05] MEDS: inSUlin ASPART (NovoLOG) 1 UNIT/0.01 ML (CHARGE PER UNIT) SC SCH ×4 (06:20→20:53)
[2016-11-05] MEDS: PANTOPRAZOLE 20 MG TABLET (PROTONIX) PO SCH ×2 (06:20→20:53)
[2016-11-05] MEDS: LEVOTHYROXINE 125 MCG (LEVOTHROID) TABLET PO SCH (06:20)
[2016-11-05 08:20] VITALS: BP 149/89
[2016-11-05] MEDS: DICYCLOMINE 10 MG (BENTYL) CAP PO SCH ×4 (08:25→20:52)
[2016-11-05] MEDS: GABAPENTIN 300 MG (NEURONTIN) CAP PO SCH ×3 (08:26→20:52)
--- NOTE | 2016-11-05 10:11 | Diagnostic Imaging Report ---
INDICATION: Followup PleurX catheter. COMPARISON: 11/04/2016 FINDINGS: Left pleural catheter remains in stable position. Resolution of left apical pneumothorax. Left basilar heterogeneous opacities are unchanged. Right basilar linear atelectasis is similar. Stable cardiomediastinal silhouette. IMPRESSION: 1. Stable left pleural catheter with resolution of left apical pneumothorax. Dictated by: Dictated on workstation # [id number]
[2016-11-05 17:51] VITALS: BP 123/82
[2016-11-05] MEDS: MONTELUKAST 10 MG (SINGULAIR) TAB PO SCH (20:53)
[2016-11-05] MEDS: inSUlin DETERMIR 1 UNIT/0.01 ML (LEVEMIR) CHARGE PER UNIT SQ SCH (20:54)
[2016-11-05] MEDS: SERTRALINE 50 MG (ZOLOFT) TABLET PO SCH (20:54)
[2016-11-06] MEDS: RT-ALBUTEROL/IPRATROPIUM 3 ML (DUONEB) VIAL INH SCH ×6 (02:24→21:40)
[2016-11-06 06:00] VITALS: BP 129/85
--- NOTE | 2016-11-06 06:27 | Pulmonary Progress Note ---
Subjective Time Seen by Provider: 06:27 Subjective/Events-last exam pt is doing better. CXR shows lung reexpansion. Exam Exam Vital Signs Date Time Temp Pulse Resp B/P (MAP) Pulse Ox O2 Delivery O2 Flow Rate FiO2 11/06/16 02:24 93 Nasal Cannula 2.00 11/05/16 22:22 96 Nasal Cannula 2.00 11/05/16 21:20 93 Nasal Cannula 2.00 11/05/16 18:45 91 Nasal Cannula 2.00 11/05/16 17:51 96.6 88 20 123/82 97 Nasal Cannula 3.00 11/05/16 15:49 94 Nasal Cannula 2.00 11/05/16 11:21 95 Nasal Cannula 2.00 11/05/16 08:30 98 Nasal Cannula 3.00 11/05/16 08:20 96.9 88 16 149/89 98 Nasal Cannula 3.00 11/05/16 08:01 92 Nasal Cannula 2.00 General Appearance: No Apparent Distress, WD/WN HEENT: Normal ENT Inspection, Pharynx Normal Neck: Normal Inspection, Non Tender, Supple Respiratory: Chest Non Tender, Lungs Clear, No Respiratory Distress, Decreased Breath Sounds Cardiovascular: Regular Rate, Rhythm, No Edema, No Gallop Gastrointestinal: normal bowel sounds, non tender, soft, no organomegaly Neurologic/Psychiatric: Alert Skin: Normal Color, Warm/Dry Assessment/Plan Assessment/Plan Dyspnea - improved Hx of Large malignant left pleural effusion and hx of breast cancer -s/p Pleurex catheter PTX --resolved -CXR from yesterday shows small improvement. -repeat CXR daily Dyspnea secondary to left effusion pt and critical care registered nurse will need education on Pleurx catheter care. 232 Clinical Quality Measures DVT/VTE Risk/Contraindication: Risk Factor Score Per Nursin MERCEDES GARCIA DO Nov 06, 2016 06:27
[2016-11-06] MEDS: PANTOPRAZOLE 20 MG TABLET (PROTONIX) PO SCH ×2 (06:43→20:28)
[2016-11-06] MEDS: LEVOTHYROXINE 125 MCG (LEVOTHROID) TABLET PO SCH (06:43)
[2016-11-06] MEDS: inSUlin ASPART (NovoLOG) 1 UNIT/0.01 ML (CHARGE PER UNIT) SC SCH ×4 (06:43→20:58)
[2016-11-06] MEDS: ACETAMINOPHEN 325 MG TABLET/CAPLET (TYLENOL) PO PRN (07:51)
--- NOTE | 2016-11-06 09:10 | Diagnostic Imaging Report ---
INDICATION: Chest tube. TECHNIQUE: Single view chest at 5:06 AM. CORRELATION STUDY: 11/05/2016. FINDINGS: A small caliber tube over the left lower chest remains in place. There is the presence of bilateral pleural effusions along with atelectasis or infiltrate at the lung bases, generally stable. Prominent interstitial markings could be reflective of mild edema. The heart size is borderline. The vasculature is overall stable. There is the presence of a tiny left apical pneumothorax. Multiple surgical clips over the right axilla remain. IMPRESSION: 1. Small caliber left lower thoracostomy tube and a small left apical pneumothorax. 2. A combination of bilateral pleural effusion along with atelectasis or infiltrate at the lung bases does remain. Dictated by: Dictated on workstation # [id number]
[2016-11-06] MEDS: DICYCLOMINE 10 MG (BENTYL) CAP PO SCH ×4 (10:58→20:28)
[2016-11-06] MEDS: GABAPENTIN 300 MG (NEURONTIN) CAP PO SCH ×3 (10:58→20:28)
--- NOTE | 2016-11-06 12:45 | Physical Therapy Daily Note ---
PT Daily Note-Current Subjective Pt sitting up in bed with nurse present upon arrival. Pt agrees to PT. Pain Location: No Pain Reported Mental Status Patient Orientation: Person, Confused Attachments: Oxygen (2L) Transfers Functional [place] Measure 0=Not Assessed/NA 4=Minimal Assistance 1=Total Assistance 5=Supervision or Setup 2=Maximal Assistance 6=Modified [place] 3=Moderate Assistance 7=Complete IndependenceIRFPAI Quality Coding Scale 6 Independent with activity with or without an assistive device 5 Patient requires set up or clean up by helper. Patient completes activity by themselves 4 Supervision or touching assist ([facility]). [place] provide cues , steadying assist 3 The helper provides less than half the effort to complete the activity 2 The helper provides more than half the effort to complete the activity 1 Dependent. The helper does all the effort to complete an activity 7 Patient refused to complete or attempt activity 9 The patient did not perform the activity before the current illness or injury 88 Not attempted due to Medical conditions or safety concerns Scootin Supine to/from Sit: 4 Sit to/from Stand: 4 Sit to Stand (QC): 4 Chair/Hxp-iv-Kavgw Xfer(QC): 4 Weight Bearing Weight Bearing Restriction: Full Weight Bearing Location Restriction: LE Bilateral Gait Training Does the Patient Walk?: Yes Distance (FIM): 3=150 ft Distance: 400' Walk 50 ft with 2 Turns(QC): 5 Walk 150 ft (QC): 5 Gait Level of Assist: 5 Gait Persons Needed: 1 Gait Assistive Device: FWW Pt walks with normalized gait, slower inocente but no LOB. Wheelchair Training Does the Pt Use a Wheelchair?: No Treatments Pt transferred from Supine to EOB at [facility]. Pt transfers from EOB to standing at [facility]. Pt uses BSC before ambulating in hallway using FWW at [facility]. Pt returned to room to rest in recliner with feet up on pillow at end of tx. Pt has all needs met. Assessment Current Status: Good Progress Pt has gotten stronger and made improvements with safety and independence of transfers and ambulation. PT Glass Setter Goals Glass Setter Goals PT Glass Setter Goals Time Frame: Nov 10, 2016 Transfers (B,C,W/C) (FIM): 6 Sit to Lying (QC): 5 Lying-Sitting on Side/Bed(QC): 5 Sit to Stand (QC): 5 Rollin Chair/Wha-kd-Otnfz Xfer(QC): 5 Does the Patient Walk: Yes Gait (FIM): 6 Gait distance (FIM): 3=150 ft Distance: 350' Walk 50ft with 2 Turns (QC): 5 Walk 150 ft (QC): 5 Gait Level of Assist: 6 Gait Assistive Device: FWW PT Plan Problem List Problem List: Activity Tolerance, Functional Strength, Safety, Transfer, Bed Mobility Treatment/Plan Treatment Plan: Continue Plan of Care Treatment Plan: Education, Functional Activity Bernardo, Functional Strength, Gait , Safety, Therapeutic Exercise Treatment Duration: Nov 10, 2016 Frequency: 6 times per week Estimated Hrs Per Day: .25 hour per day Patient and/or Family Agrees t: Yes Safety Risks/Education Patient Education: Transfer Techniques, Correct Positioning, Safety Issues Teaching Recipient: Patient Teaching Methods: Discussion Response to Teaching: Verbalize Understanding Time/GCodes Time In: 1115 Time Out: 1140 Total Billed Treatment Time: 25 Total Billed Treatment visit, FA (10m) & GT (15m) CRISTINA SCHULTE COMPRESSED GAS EQUIPMENT MECHANIC Nov 06, 2016 12:45
--- NOTE | 2016-11-06 14:39 | Progress Note (SOAP) ---
Subjective Subjective/Events-last exam Afebrile, no acute events, she states she is feeling pretty well and that she is hoping to go home tomorrow. Review of Systems Date Seen by Provider: Nov 06, 2016 Time Seen by Provider: 10:20 Objective Exam Last Set of Vital Signs Vital Signs Date Time Temp Pulse Resp B/P (MAP) Pulse Ox O2 Delivery O2 Flow Rate FiO2 11/06/16 14:05 96 Nasal Cannula 2.00 11/06/16 06:00 97.8 95 18 129/85 Capillary Refill : I&O Intake and Output 11/07/16 00:00 Intake Total 100 ml Output Total 750 ml Balance -650 ml Intake Oral 100 ml Output Urine Total 750 ml Chest Tube Drainage Total 0 ml General: Alert, No Acute Distress Lungs: Clear to Auscultation, Normal Air Movement Heart: Regular Rate, No Murmurs Psych/Mental Status: Mood NL Results/Procedures Lab Laboratory Tests 11/05/16 16:00: Glucometer 343H 11/05/16 20:33: Glucometer 305H 11/06/16 05:53: Glucometer 211H 11/06/16 11:12: Glucometer 248H Radiology Chest x-ray 11/06: IMPRESSION: 1. Small caliber left lower thoracostomy tube and a small left apical pneumothorax. 2. A combination of bilateral pleural effusion along with atelectasis or infiltrate at the lung bases does remain. Assessment/Plan Assessment/Plan Plan Acute on Chronic Respiratory Failure with hypoxia likely 2/2 worsening pleural effusions, now on baseline oxygen - Catheter in place and draining fluid, doing well today, anticipate d/c soon Bilateral Pleural Effusions with Left Pneumothorax: See Above Non Insulin DM - SSI ordered, Continue PO meds and Levemir - A1c 8.6, (up from 7.0) in clinic Elevated LFTs - Hepatitis Panel NEG - Needs CT abdomen to further evaluate liver, will do as outpatient Bilateral LE edema - BNP normal Hypothyroidism - Continue home dose, normal TSH last admission H/o Breast Ca Diagnosis/Problems: Clinical Quality Measures DVT/VTE Risk/Contraindication: Risk Factor Score Per Nursin MARÍA ALEJO MD Nov 06, 2016 2:39 pm
[2016-11-06 17:23] VITALS: BP 110/57
[2016-11-06] MEDS: MONTELUKAST 10 MG (SINGULAIR) TAB PO SCH (20:28)
[2016-11-06] MEDS: SERTRALINE 50 MG (ZOLOFT) TABLET PO SCH (20:28)
[2016-11-06] MEDS: inSUlin DETERMIR 1 UNIT/0.01 ML (LEVEMIR) CHARGE PER UNIT SQ SCH (20:58)
[2016-11-07] MEDS: RT-ALBUTEROL/IPRATROPIUM 3 ML (DUONEB) VIAL INH SCH ×4 (02:36→13:40)
[2016-11-07] MEDS: inSUlin ASPART (NovoLOG) 1 UNIT/0.01 ML (CHARGE PER UNIT) SC SCH ×2 (05:43→12:49)
[2016-11-07] MEDS: PANTOPRAZOLE 20 MG TABLET (PROTONIX) PO SCH (05:43)
[2016-11-07] MEDS: LEVOTHYROXINE 125 MCG (LEVOTHROID) TABLET PO SCH (05:43)
[2016-11-07] MEDS: ACETAMINOPHEN 325 MG TABLET/CAPLET (TYLENOL) PO PRN (05:43)
--- NOTE | 2016-11-07 06:15 | Pulmonary Progress Note ---
Subjective Time Seen by Provider: 06:14 Subjective/Events-last exam NO complications noted. Exam Exam Vital Signs Date Time Temp Pulse Resp B/P (MAP) Pulse Ox O2 Delivery O2 Flow Rate FiO2 11/07/16 02:36 97 Nasal Cannula 2.00 11/06/16 21:40 94 Nasal Cannula 2.00 11/06/16 21:00 Nasal Cannula 1.50 11/06/16 18:47 96 Nasal Cannula 2.00 11/06/16 17:23 98.7 109 18 110/57 98 Nasal Cannula 2.00 11/06/16 14:05 96 Nasal Cannula 2.00 11/06/16 10:44 97 Nasal Cannula 2.00 11/06/16 07:09 94 Nasal Cannula 2.00 General Appearance: No Apparent Distress, WD/WN HEENT: Normal ENT Inspection, Pharynx Normal Neck: Normal Inspection, Non Tender, Supple Respiratory: Chest Non Tender, Lungs Clear, No Respiratory Distress, Decreased Breath Sounds Cardiovascular: Regular Rate, Rhythm, No Edema, No Gallop Gastrointestinal: normal bowel sounds, non tender, soft, no organomegaly Neurologic/Psychiatric: Alert Skin: Normal Color, Warm/Dry Assessment/Plan Assessment/Plan Dyspnea - improved Hx of Large malignant left pleural effusion and hx of breast cancer -s/p Pleurex catheter PTX --repeat CXR today -CXR from yesterday shows small improvement. -repeat CXR daily Dyspnea secondary to left effusion pt and home health care case manager will need education on Pleurx catheter care. 232 Clinical Quality Measures DVT/VTE Risk/Contraindication: Risk Factor Score Per Nursin MERCEDES GARCIA DO Nov 07, 2016 06:15
[2016-11-07 06:29] VITALS: BP 136/74
--- NOTE | 2016-11-07 07:26 | Diagnostic Imaging Report ---
INDICATION: Indwelling chest tube. COMPARISON: 11/06/2016. FINDINGS: Single frontal radiographic view of the chest was obtained. Indwelling left-sided chest tube is noted, but is suboptimally visualized secondary to obscuration overlying soft tissues. There is no pneumothorax on either side. Aeration of the chest is largely stable. There is persistent left basilar airspace disease and small right effusion. Cardiac silhouette and pulmonary vasculature are stable. IMPRESSION: 1. Indwelling left-sided chest tube. No evidence of pneumothorax. 2. Otherwise, stable aeration demonstrating small right effusion and left basilar airspace disease. Continued followup is recommended. Dictated by: Dictated on workstation # [id number]
[2016-11-07] MEDS: GABAPENTIN 300 MG (NEURONTIN) CAP PO SCH ×2 (08:42→12:50)
[2016-11-07] MEDS: DICYCLOMINE 10 MG (BENTYL) CAP PO SCH ×2 (08:42→12:50)
[2016-11-07] MEDS ORDERED: LIRA0.6P SQ (09:44)
[2016-11-07] MEDS ORDERED: EZET10TA5 PO (09:44)
--- NOTE | 2016-11-07 12:11 | D/C HH Face to Face Order ---
D/C Face to Face Orders Instructions for Patient Patient Instructions/FollowUp: Follow up with Dr. Miranda on 11/14 at 1:40 pm. Follow up with Dr. Pfeiffer as directed. Physician to follow Patient: Ruth Discharge Diet for Home: ADA Diet Patient Data-Allergies,Ht & Wt Patient Allergies: Coded Allergies: latex (Verified Allergy, Unknown, 11/03/16) Height (Feet): 5 Height (Inches): 2.00 Weight (Pounds): 168 Weight (Ounces): 8.0 Home Health Need/Face to Face Date of Face to Face: Nov 07, 2016 Clinical Findings: Shortness of breath, Other-list in note Pleurex catheter I have seen Pt [id number]: Yes Discharged To: Home Diagnosis/Conditions: Recurrent pleural effusion requiring Pleurex catheter Breast cancer Diabetes mellitus type II Problems/Diagnosis/Condition: Patient is Homebound due to: Shortness of breath/distress Homebound Status Due to the above stated illness, injury or surgical procedure (medical condition or diagnosis) and associated clinical findings, the patient is homebound because of his/her inability to leave home except with aid of a supportive device and/or person AND leaving the home requires a considerable and taxing effort or is medically contraindicated. Pt req the following assistanc: Walker Home Health Nursing Orders Home Health Services Order: Nursing Services, Physical Therapy-Evaluate & Treat Home Health Infusion Therapy Line Type: Saline Lock Site Location: Antecubital Therapy Orders Therapy Specific Orders: Increase strength/endurance Certify Stmt I certify that this patient is under my care and that I, a nurse practitioner or a physician; a assistant professor of surgery working with me, had a face to face encounter that - meets the physician face to face encounter requirements with this patient as dated. MARÍA ALEJO MD Nov 07, 2016 12:09 pm
--- NOTE | 2016-11-07 14:51 | Physical Therapy Progress Note ---
Therapy Progress Note PT attempted pt at approx. 1115 and pt, Caregiver & Wound Care Nurse meeting to discuss med. administration. PT returned in afternoon & pt had call light on. Pt had been given discharge papers but PT assisted pt to restroom and back to recliner. Pt has all needs met upon PT leaving. Time: 0152-1992 1 visit, FA (15m) CRISTINA SCHULTE PTA Nov 07, 2016 14:51
--- NOTE | 2016-11-07 16:18 | Discharge Summary ---
Diagnosis/Chief Complaint Date of Admission Nov 03, 2016 at 10:24 am Date of Discharge Nov 07, 2016 at 3:50 pm Admission Diagnosis Admission Diagnosis Acute on Chronic Respiratory Failure with hypoxia likely 2/2 worsening pleural effusions s/p Pleurex catheter placement Bilateral Pleural Effusions with Left Pneumothorax Non Insulin DM Elevated LFTs Bilateral LE edema Hypothyroidism H/o Breast Ca Debility Discharge Diagnosis Acute on Chronic Respiratory Failure with hypoxia likely 2/2 worsening pleural effusions- pleurex placed at inpatient stay, now on baseline oxygen - Catheter in place and draining fluid Bilateral Pleural Effusions with Left Pneumothorax: See Above Non Insulin DM - SSI ordered, discharged on home metformin, liraglutide, glipizide - A1c 8.6, (up from 7.0) in clinic Elevated LFTs - Hepatitis Panel NEG - Needs CT abdomen to further evaluate liver, will do as outpatient - Held home cholesterol medications Bilateral LE edema - BNP normal Hypothyroidism - Continued home dose, normal TSH last admission H/o Breast Ca Debility - PT/OT during admission - Discharged with home health Chief Complaint/HPI Chief Complaint/HPI From Dr. Miranda's inpatient H&P "70 yo F that was a direct admission from [facility] walk in care for increasing shortness of breath with hypoxia. Patient states that she has been having worsening shortness of breath for the last 3 weeks but today was a lot worse to the point that she could not tolerate getting out of bed. She has a home oxygen requirement of 2-3 L. Recent admission for pleural effusion that was drained and she was then sent home with oxygen. Pleural effusion was thought to be related to recurrent breast cancer. Dr Pfeiffer has previously spoke to patient and care rep about pleurex drain and they are wanting to discuss further because patient feels like the fluid is reaccumulating. Patient states that Dr Felder recently took her off her Motrin and since then her pain has been much worse and has hindered her ambulation. Denies any chest pain or palpitations, No N/V or abdominal pain." Patient was discharged from inpatient stay to swing bed after placement of pleurex drain and daily x-rays and respiratory status monitored. Discharge Summary-Simple/Stand Discharge Physical Examination Allergies: Coded Allergies: latex (Verified Allergy, Unknown, 11/03/16) Vitals & I&Os Vital Sign - Last 12Hours Date Time Temp Pulse Resp B/P (MAP) Pulse Ox O2 Delivery O2 Flow Rate FiO2 9/19/17 15:56 11/07/16 13:40 Nasal Cannula 3.00 11/07/16 09:29 96 11/07/16 06:29 97.4 90 18 Intake and Output 11/08/16 00:00 Intake Total 915 ml Output Total 550 ml Balance 365 ml General Appearance: Alert, No Acute Distress Respiratory: Clear to Auscultation, Normal Air Movement Cardiovascular: Regular Rate, No Murmurs Psych/Mental Status: Mood NL Hospital Course See final discharge diagnosis. Labs Laboratory Tests Test 11/05/16 20:33 11/06/16 05:53 11/06/16 11:12 11/06/16 16:11 Range/Units Glucometer 305 H 211 H 248 H 384 H 70-110 MG/DL Test 11/06/16 20:47 11/07/16 12:15 Range/Units Glucometer 314 H 240 H 70-110 MG/DL Radiology Reviewed Chest x-ray 11/06: IMPRESSION: 1. Small caliber left lower thoracostomy tube and a small left apical pneumothorax. 2. A combination of bilateral pleural effusion along with atelectasis or infiltrate at the lung bases does remain. Discharge Instructions to patient/family Please see electronic discharge instructions given to patient. Discharge Medications Reviewed and agree with Discharge Medication list on patient's Discharge Instruction sheet Clinical Quality Measures DVT/VTE Risk/Contraindication: Risk Factor Score Per Nursin Copy Copies To 1: JOHNNY MIRANDA MD, BETHANY N MD Nov 07, 2016 4:18 pm
== END 2016-11-07 15:50 | disposition home health service (06) | DRG 598 ==
LOC: 4TH 10:24
PROVIDERS: ADMIT Family Medicine; ATTEND Family Medicine
DX: C79.81 Secondary malignant neoplasm of breast (principal); J91.0 Malignant pleural effusion; Z85.3 Personal history of malignant neoplasm of breast; R60.0 Localized edema; R53.81 Other malaise; E11.42 Type 2 diabetes mellitus with diabetic polyneuropathy; I10 Essential (primary) hypertension; I89.0 Lymphedema, not elsewhere classified; E89.0 Postprocedural hypothyroidism; E78.00 Pure hypercholesterolemia, unspecified; K21.9 Gastro-esophageal reflux disease without esophagitis; M19.91 Primary osteoarthritis, unspecified site; F41.9 Anxiety disorder, unspecified; F32.9 Major depressive disorder, single episode, unspecified; E03.9 Hypothyroidism, unspecified; R79.89 Other specified abnormal findings of blood chemistry; Z87.891 Personal history of nicotine dependence; Z99.81 Dependence on supplemental oxygen; Z79.84 Long term (current) use of oral hypoglycemic drugs
CPT/HCPCS: 71010; 82962; 94640; 94760

== ENCOUNTER 2016-11-09 13:54 | Outpatient (RCR) | payer MEDICARE, MEDICAID | END 2016-11-18 | disposition home or self-care (01) | LOC: ONC 13:54 | PROVIDERS: ATTEND Internal Medicine Hematology & Oncology | DX: Z08 Encounter for follow-up examination after completed treatment for malignant neoplasm (principal); Z85.3 Personal history of malignant neoplasm of breast; I89.0 Lymphedema, not elsewhere classified; M85.80 Other specified disorders of bone density and structure, unspecified site; Z79.899 Other long term (current) drug therapy | CPT/HCPCS: 99213 ==

== ENCOUNTER → 2016-11-28 | Outpatient (CLI) | payer MEDICARE, MEDICAID | LOC: RAD 10:25 | PROVIDERS: ATTEND Nurse Practitioner Adult Health | DX: Z12.31 Encounter for screening mammogram for malignant neoplasm of breast (principal); Z85.3 Personal history of malignant neoplasm of breast | CPT/HCPCS: 77067 ==

== ENCOUNTER 2017-01-31 05:34 | Outpatient (CLI) | payer MEDICARE, MEDICAID ==
[~2017-01-31] VITALS: Ht 157.5 cm; Wt 74.2 kg
[2017-01-31] MEDS ORDERED: LETR2.5T5 PO ×2 (14:01)
[2017-01-31] MEDS ORDERED: PALB125C PO ×2 (14:01)
[2017-01-31] MEDS ORDERED: MAGN400T29 PO ×2 (14:01)
== END 2017-01-31 14:16 ==
LOC: PREOP 05:34
PROVIDERS: ATTEND Surgery
DX: Z01.818 Encounter for other preprocedural examination (principal); Z85.3 Personal history of malignant neoplasm of breast

== ENCOUNTER 2017-02-01 06:09 | Day surgery (SDC) | payer MEDICARE, MEDICAID ==
[~2017-02-01] VITALS: Ht 157.5 cm; Wt 74.2 kg
[~2017-02-01 06:09] MED LIST changes: +LETR2.5T5 PO; +PALB125C PO
--- OUTSIDE RECORDS SUMMARY | 2017-02-01 06:13 | XMS REPORT ---
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 Active 82383282 Problem Poor vision H54.7 Active 503582306 Problem Unstable gait R26.81 Active 65416170 Problem Malignant pleural effusion J91.0 Active 64169990 Problem Osteoarthritis M19.90 Active 733361809 Problem Metastatic breast cancer C50.919 Active 022272899 Problem Type 2 diabetes mellitus with diabetic neuropathic arthropathy E11.610 Active 810362968 Problem Irritable bowel syndrome with diarrhea K58.0 Active 895879103 Problem Mild single current episode of major depressive disorder F32.0 Active 18969282 Problem DM neuro manif type II E11.49 Active 44196311 Problem Hammertoe M20.40 Active 826488841 Problem Stress incontinence (female) (male) N39.3 Active 075847785 Problem Otomycosis in moniliasis B37.84 Active 09238442 Problem Hypothyroid E03.9 Active 76180107 Problem HTN (hypertension) I10 Active 87336709 Problem Uncomplicated asthma, unspecified asthma severity J45.909 Active 650054888 Problem Hypercholesterolemia E78.00 Active 22735559 Problem Cellulitis of breast N61 Active 52955126 Problem Gastroesophageal reflux disease with esophagitis K21.0 Active 390015866 Problem History of breast cancer Z85.3 Active 954974336 Problem Other iron deficiency anemia D50.8 Active 15544781 ALLERGIES No Information SOCIAL HISTORY Never Assessed PLAN OF CARE VITAL SIGNS MEDICATIONS Medication Instructions Dosage Frequency Start Date End Date Duration Status Montelukast Sodium 10 mg Orally Once a day TAKE ONE TABLET BY MOUTH EVERY EVENING 24h 30 Active RESULTS No Results PROCEDURES No Known procedures IMMUNIZATIONS No Known Immunizations MEDICAL (GENERAL) HISTORY Type Description Date Medical History type II diabetes Medical History hyperlipidemia Medical History hypertension Medical History breast cancer (2008) Medical History incontinence Medical History cataracts Medical History emphysema Medical History allergic rhinitis Medical History Hypothyroidism Medical History asthma Medical History neuropathy Medical History retinitis Medical History cellulitis Medical History Screening for breast cancer Surgical History breast biopsy Surgical History hysterectomy-full non cancerous Surgical History cholecystectomy Surgical History thyroidectomy Surgical History EGD ([facility]-tortuous esophagus/mild gastritis) 08/2012 Surgical History right mastectomy ([facility]) 2008 Surgical History cataract-lens implants age 21 Surgical History ENT surgery-throat surgery Surgical History lithotripsy Surgical History orthopedic surgery-Left arm fx with hardware Surgical History port removal 2014 Surgical History Colon surgery- polyps removed and biopsy- [facility] 09/2016 Hospitalization History breast cellulitis 02/2012 Hospitalization History RUE & breast cellulitis 03/2012 Hospitalization History kidney stones Hospitalization History surgeries Hospitalization History Cellulitis of chest wall and right arm HX of Breast CA 06/22/15 Hospitalization History pleural effusion-[facility] 10/03/16 Hospitalization History bilat pleural effusion-[facility] 10/30/16
--- OUTSIDE RECORDS SUMMARY | 2017-02-01 06:13 | XMS REPORT ---
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 Active 73148701 Problem Poor vision H54.7 Active 122020960 Problem Unstable gait R26.81 Active 38555314 Problem Malignant pleural effusion J91.0 Active 14582010 Problem Osteoarthritis M19.90 Active 881263686 Problem Metastatic breast cancer C50.919 Active 617289527 Problem Type 2 diabetes mellitus with diabetic neuropathic arthropathy E11.610 Active 032740919 Problem Irritable bowel syndrome with diarrhea K58.0 Active 466045158 Problem Mild single current episode of major depressive disorder F32.0 Active 45830461 Problem DM neuro manif type II E11.49 Active 90848139 Problem Hammertoe M20.40 Active 430253616 Problem Stress incontinence (female) (male) N39.3 Active 117269918 Problem Otomycosis in moniliasis B37.84 Active 91750944 Problem Hypothyroid E03.9 Active 13985733 Problem HTN (hypertension) I10 Active 72841014 Problem Uncomplicated asthma, unspecified asthma severity J45.909 Active 753120038 Problem Hypercholesterolemia E78.00 Active 60983852 Problem Cellulitis of breast N61 Active 08254058 Problem Gastroesophageal reflux disease with esophagitis K21.0 Active 057540000 Problem History of breast cancer Z85.3 Active 164417784 Problem Other iron deficiency anemia D50.8 Active 32049678 ALLERGIES No Information SOCIAL HISTORY Never Assessed PLAN OF CARE Activity Details Pending Test CBC VITAL SIGNS MEDICATIONS Unknown Medications RESULTS Name Result Date Reference Range ANEMIA PANEL 2016-07-24 Iron Bind.Cap.(TIBC) 288 250-450 UIBC 234 118-369 Iron, Serum 54 27-139 Iron Saturation 19 15-55 Ferritin, Serum 99 15-150 Vitamin B12 412 211-946 Folate (Folic Acid), Serum 5.2 >3.0 WBC 5.8 3.4-10.8 RBC 3.97 3.77-5.28 Hemoglobin 10.8 11.1-15.9 Hematocrit 33.7 34.0-46.6 MCV 85 79-97 MCH 27.2 26.6-33.0 MCHC 32.0 31.5-35.7 RDW 14.6 12.3-15.4 Platelets 169 150-379 Neutrophils 66 Lymphs 23 Monocytes 10 Eos 1 Basos 0 Neutrophils (Absolute) 3.8 1.4-7.0 Lymphs (Absolute) 1.3 0.7-3.1 Monocytes(Absolute) 0.6 0.1-0.9 Eos (Absolute) 0.1 0.0-0.4 Baso (Absolute) 0.0 0.0-0.2 Immature Granulocytes 0 Immature Grans (Abs) 0.0 0.0-0.1 Reticulocyte Count 1.9 0.6-2.6 TSH W/ FREE T4 2016-07-24 TSH 0.196 0.450-4.500 T4,Free(Direct) 1.22 0.82-1.77 LIPID PANEL 2016-07-24 Cholesterol, Total 109 100-199 Triglycerides 101 0-149 HDL Cholesterol 42 >39 VLDL Cholesterol Ricardo 20 5-40 LDL Cholesterol Calc 47 0-99 CMP 2016-07-24 Glucose, Serum 152 65-99 BUN 25 8-27 Creatinine, Serum 0.60 0.57-1.00 eGFR If NonAfricn Am 93 >59 eGFR If Africn Am 108 >59 BUN/Creatinine Ratio 42 12-28 Sodium, Serum 146 134-144 Potassium, Serum 4.1 3.5-5.2 Chloride, Serum 104 96-106 Carbon Dioxide, Total 24 18-29 Calcium, Serum 9.2 8.7-10.3 Protein, Total, Serum 6.7 6.0-8.5 Albumin, Serum 4.3 3.6-4.8 Globulin, Total 2.4 1.5-4.5 A/G Ratio 1.8 1.2-2.2 Bilirubin, Total 0.6 0.0-1.2 Alkaline Phosphatase, S 57 39-117 AST (SGOT) 17 0-40 ALT (SGPT) 20 0-32 PROCEDURES Procedure Date Ordered Result Body Site LAB NOT [facility] July 24, 2016 VENIPUNCT, ROUTINE* July 24, 2016 IMMUNIZATIONS No Known Immunizations MEDICAL (GENERAL) HISTORY [...] of Breast CA 06/22/15 Hospitalization History pleural effusion-[facility] 10/03/16 Hospitalization History bilat pleural effusion-[facility] 10/30/16
--- OUTSIDE RECORDS SUMMARY | 2017-02-01 06:15 | XMS REPORT ---
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 Active 17008441 Problem Poor vision H54.7 Active 094183231 Problem Unstable gait R26.81 Active 04355166 Problem Malignant pleural effusion J91.0 Active 94099504 Problem Osteoarthritis M19.90 Active 020203423 Problem Metastatic breast cancer C50.919 Active 639779630 Problem Type 2 diabetes mellitus with diabetic neuropathic arthropathy E11.610 Active 010902151 Problem Irritable bowel syndrome with diarrhea K58.0 Active 384507472 Problem Mild single current episode of major depressive disorder F32.0 Active 83999173 Problem DM neuro manif type II E11.49 Active 68138089 Problem Hammertoe M20.40 Active 711700197 Problem Stress incontinence (female) (male) N39.3 Active 851378107 Problem Otomycosis in moniliasis B37.84 Active 83198541 Problem Hypothyroid E03.9 Active 52287016 Problem HTN (hypertension) I10 Active 82979485 Problem Uncomplicated asthma, unspecified asthma severity J45.909 Active 628447554 Problem Hypercholesterolemia E78.00 Active 01946682 Problem Cellulitis of breast N61 Active 47342720 Problem Gastroesophageal reflux disease with esophagitis K21.0 Active 589566596 Problem History of breast cancer Z85.3 Active 387097709 Problem Other iron deficiency anemia D50.8 Active 45562857 ALLERGIES Substance Reaction Event Type Date Status Cortisone Unknown Drug Allergy Jul, Active Lisinopril Unknown Drug Allergy Jul, Active SOCIAL HISTORY Never Assessed PLAN OF CARE Activity Details Follow Up annually for preventive care, sooner for chronic health maintenance Reason: VITAL SIGNS Height 62 in 2016-07-20 Weight 178.4 lbs 2016-07-20 Temperature 98.1 degrees Fahrenheit 2016-07-20 Heart Rate 88 bpm 2016-07-20 Respiratory Rate 18 2016-07-20 BMI 32.63 kg/m2 2016-07-20 Blood pressure systolic 102 mmHg 2016-07-20 Blood pressure diastolic 70 mmHg 2016-07-20 MEDICATIONS Medication Instructions Dosage Frequency Start Date End Date Duration Status Fish Oil 1 gram 1 capsule 3 times per day Apr, Active Atorvastatin Calcium 40 mg Orally Once a day 1 tablet 24h Active Ibuprofen 800 MG TAKE 1 TABLET BY MOUTH THREE TIMES DAILY WITH FOOD 30 Active Montelukast Sodium 10 mg Orally Once a day TAKE ONE TABLET BY MOUTH EVERY EVENING 24h 30 Active Magnesium Oxide 400 (240 Mg) MG TAKE ONE TABLET BY MOUTH TWICE DAILY - NO MORE REFILLS GIVEN UNTIL YOU ESTABLISH CARE PER DR [place] Active Myriam Nickerson 1 as directed Mar, Active Victoza 18 MG/3ML INJECT 1.8 MG (0.3 ML) SUBCUTANEOUSLY ONCE DAILY 30 Active Pen Proctor 31G X 8 MM subcutaneously 3 times a day verbally ok'd 8h Oct, 30 days Active Sertraline HCl 25 MG TAKE ONE TABLET BY MOUTH ONCE DAILY 30 Active Gabapentin 300 MG TAKE 1 CAPSULE BY MOUTH THREE TIMES DAILY -NO MORE REFILLS, MUST ESTABLISH CARE APPOINTMENT 30 Active Oxybutynin Chloride ER 15 MG TAKE ONE TABLET BY MOUTH EVERY DAY 30 Active GlipiZIDE 10 MG TAKE ONE TABLET BY MOUTH TWICE DAILY 30 Active Dicyclomine HCl 10 MG TAKE 1 CAPSULE BY MOUTH FOUR TIMES DAILY 30 Active Aspirin 81 mg 1 tablet by Oral route 1 time per day Dec, Active Zetia 10 MG TAKE ONE TABLET BY MOUTH ONCE DAILY 30 Active Omeprazole 20 MG TAKE 1 CAPSULE BY MOUTH TWICE DAILY 30 Active Myrbetriq 50 mg Orally Once a day at noon 1 tablet Active Levothyroxine Sodium 125 MCG TAKE ONE TABLET BY MOUTH ONCE DAILY 30 Active Multivitamins Active UltiCare Short Pen Proctor 31G X 8 MM USE WITH VICTOZA DIRECTED Active Metformin HCl 500 MG TAKE 2 TABLETS BY MOUTH TWICE DAILY 30 Active RESULTS No Results PROCEDURES Procedure Date Ordered Result Body Site ANNUAL WELLNESS VST; PPS SUBSQT VST July 20, 2016 ANNUAL WELLNESS VST; PPS SUBSQT VST July 20, 2016 IMMUNIZATION ADMIN, EACH ADD (please include units) July 20, 2016 TDAP (BOOSTRIX) July 20, 2016 [facility] VISIT ESTABLISHED PATIENT July 20, 2016 SINGLE IMMUNIZATION ADMIN July 20, 2016 ZOSTER (ZOSTAVAX) July 20, 2016 IMMUNIZATIONS Vaccine Route Administration Date Status TDAP (BOOSTRIX) IM Intramuscular July 20, 2016 Administered ZOSTER (ZOSTAVAX) SC Subcutaneous July 20, 2016 Administered MEDICAL (GENERAL) HISTORY Type Description Date Medical [...] of Breast CA 06/22/15 Hospitalization History pleural effusion-[facility] 10/03/16 Hospitalization History bilat pleural effusion-[facility] 10/30/16
--- OUTSIDE RECORDS SUMMARY | 2017-02-01 06:16 | XMS REPORT ---
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 Active 03337021 Problem Poor vision H54.7 Active 238136835 Problem Unstable gait R26.81 Active 58719620 Problem Exudative pleural effusion J90 Active 88629213947910 Problem HTN (hypertension) I10 Active 99513266 Problem Screening for breast cancer Z12.39 Active 050330429 Problem Hypothyroid E03.9 Active 87775196 Problem Type 2 diabetes mellitus with diabetic neuropathic arthropathy E11.610 Active 859461275 Problem Irritable bowel syndrome with diarrhea K58.0 Active 232928999 Problem Mild single current episode of major depressive disorder F32.0 Active 31498019 Problem DM neuro manif type II E11.49 Active 67801988 Problem Hammertoe M20.40 Active 760824251 Problem Otomycosis in moniliasis B37.84 Active 03236051 Problem Cellulitis of breast N61 Active 79300697 Problem Stress incontinence (female) (male) N39.3 Active 883593612 Problem Osteoarthritis M19.90 Active 908237780 Problem Hypercholesterolemia E78.00 Active 95536579 Problem Uncomplicated asthma, unspecified asthma severity J45.909 Active 251186947 Problem History of breast cancer Z85.3 Active 775403621 Problem Gastroesophageal reflux disease with esophagitis K21.0 Active 291812336 Problem Neuropathy G62.9 Active 022819643 Problem Other iron deficiency anemia D50.8 Active 20591611 ALLERGIES Substance Reaction Event Type Date Status Cortisone Unknown Drug Allergy Mar, Active Lisinopril Unknown Drug Allergy Mar, Active SOCIAL HISTORY Never Assessed PLAN OF CARE Activity Details Follow Up 3 Months, prn Reason:dm, htn, hypothyroid VITAL SIGNS Height 62 in 2016-03-31 Weight 161.0 lbs 2016-03-31 Temperature 97.8 degrees Fahrenheit 2016-03-31 Heart Rate 96 bpm 2016-03-31 Respiratory Rate 20 2016-03-31 BMI 29.44 kg/m2 2016-03-31 Blood pressure systolic 118 mmHg 2016-03-31 Blood pressure diastolic 72 mmHg 2016-03-31 MEDICATIONS Medication Instructions Dosage Frequency Start Date End Date Duration Status Atorvastatin Calcium 40 mg Orally Once a day 1 tablet 24h Active Oxybutynin Chloride ER 15 MG TAKE ONE TABLET BY MOUTH EVERY DAY 30 Active UltiCare Short Pen [place] 31G X 8 MM USE WITH VICTOZA DIRECTED Active Fish Oil 1 gram 1 capsule 3 times per day Apr, Active Omeprazole 20 MG TAKE 1 CAPSULE BY MOUTH TWICE DAILY Active Aspirin 81 mg 1 tablet by Oral route 1 time per day Dec, Active GlipiZIDE 10 MG TAKE ONE TABLET BY MOUTH TWICE DAILY Active Magnesium Oxide 400 (241.3 Mg) MG TAKE ONE TABLET BY MOUTH TWICE DAILY - NO MORE REFILLS GIVEN UNTIL YOU ESTABLISH CARE PER DR 30 Active Ibuprofen 800 MG TAKE 1 TABLET BY MOUTH THREE TIMES DAILY WITH FOOD Active Gabapentin 300 MG TAKE 1 CAPSULE BY MOUTH THREE TIMES DAILY -NO MORE REFILLS, MUST ESTABLISH CARE APPOINTMENT Active Myriam Nickerson 1 as directed Mar, Active Victoza 18 MG/3ML INJECT 1.8 ML (0.3 ML) SUBCUTANEOUSLY ONCE DAILY Active Metformin HCl 500 MG TAKE 2 TABLETS BY MOUTH TWICE DAILY Active Montelukast Sodium 10 MG TAKE ONE TABLET BY MOUTH EVERY EVENING Active Pen [place] 31G X 8 MM subcutaneously 3 times a day verbally ok'd 8h 30 Oct, 2013 30 days Active Sertraline HCl 25 MG TAKE ONE TABLET BY MOUTH ONCE DAILY Active Levothyroxine Sodium 75 MCG Orally Once a day 1 tablet on an empty stomach in the morning 24h Nov, Active Myrbetriq 50 mg Orally Once a day at noon 1 tablet Active Magnesium Oxide 400 (240 Mg) MG TAKE ONE TABLET BY MOUTH TWICE DAILY - NO MORE REFILLS GIVEN UNTIL YOU ESTABLISH CARE PER DR 30 Active Dicyclomine HCl 10 MG TAKE 1 CAPSULE BY MOUTH FOUR TIMES DAILY Active Zetia 10 MG TAKE ONE TABLET BY MOUTH ONCE DAILY 30 Active Multivitamins Active RESULTS No Results PROCEDURES Procedure Date Ordered Result Body Site [facility] VISIT ESTABLISHED PATIENT Mar 31, 2016 IMMUNIZATIONS No Known Immunizations MEDICAL (GENERAL) [...] of Breast CA 06/22/15 Hospitalization History pleural effusion-[facility] 10/03/16 Hospitalization History bilat pleural effusion-[facility] 10/30/16
--- OUTSIDE RECORDS SUMMARY | 2017-02-01 06:16 | XMS REPORT ---
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 Active 56280610 Problem Poor vision H54.7 Active 926973291 Problem Unstable gait R26.81 Active 23535754 Problem Malignant pleural effusion J91.0 Active 56308855 Problem Osteoarthritis M19.90 Active 311897266 Problem Metastatic breast cancer C50.919 Active 471081127 Problem Type 2 diabetes mellitus with diabetic neuropathic arthropathy E11.610 Active 571280745 Problem Irritable bowel syndrome with diarrhea K58.0 Active 182440826 Problem Mild single current episode of major depressive disorder F32.0 Active 30346849 Problem DM neuro manif type II E11.49 Active 45561624 Problem Hammertoe M20.40 Active 218048779 Problem Stress incontinence (female) (male) N39.3 Active 688268168 Problem Otomycosis in moniliasis B37.84 Active 57852079 Problem Hypothyroid E03.9 Active 76402404 Problem HTN (hypertension) I10 Active 97571660 Problem Uncomplicated asthma, unspecified asthma severity J45.909 Active 940116916 Problem Hypercholesterolemia E78.00 Active 32452657 Problem Cellulitis of breast N61 Active 68428345 Problem Gastroesophageal reflux disease with esophagitis K21.0 Active 537391247 Problem History of breast cancer Z85.3 Active 667773795 Problem Other iron deficiency anemia D50.8 Active 92108440 ALLERGIES No Information SOCIAL HISTORY Never Assessed PLAN OF CARE VITAL SIGNS MEDICATIONS Unknown [...] of Breast CA 06/22/15 Hospitalization History pleural effusion-[facility] 10/03/16 Hospitalization History bilat pleural effusion-[facility] 10/30/16
--- OUTSIDE RECORDS SUMMARY | 2017-02-01 06:16 | XMS REPORT ---
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 Active 90545212 Problem Poor vision H54.7 Active 682106856 Problem Unstable gait R26.81 Active 10422510 Problem Exudative pleural effusion J90 Active 54713783982637 Problem HTN (hypertension) I10 Active 93061756 Problem Screening for breast cancer Z12.39 Active 804433591 Problem Hypothyroid E03.9 Active 37403629 Problem Type 2 diabetes mellitus with diabetic neuropathic arthropathy E11.610 Active 652730046 Problem Irritable bowel syndrome with diarrhea K58.0 Active 167473025 Problem Mild single current episode of major depressive disorder F32.0 Active 61267691 Problem DM neuro manif type II E11.49 Active 15819944 Problem Hammertoe M20.40 Active 914570622 Problem Otomycosis in moniliasis B37.84 Active 01621771 Problem Cellulitis of breast N61 Active 38476682 Problem Stress incontinence (female) (male) N39.3 Active 569132975 Problem Osteoarthritis M19.90 Active 248271823 Problem Hypercholesterolemia E78.00 Active 23888013 Problem Uncomplicated asthma, unspecified asthma severity J45.909 Active 182917197 Problem History of breast cancer Z85.3 Active 864186866 Problem Gastroesophageal reflux disease with esophagitis K21.0 Active 586698289 Problem Neuropathy G62.9 Active 270720233 Problem Other iron deficiency anemia D50.8 Active 69259261 ALLERGIES No Information SOCIAL HISTORY Never Assessed PLAN OF CARE VITAL SIGNS MEDICATIONS Medication Instructions Dosage Frequency Start Date End Date Duration Status Victoza 18 MG/3ML INJECT 1.8 ML (0.3 ML) SUBCUTANEOUSLY ONCE DAILY June, 30 days Active RESULTS No Results PROCEDURES No Known [...] of Breast CA 06/22/15 Hospitalization History pleural effusion-[facility] 10/03/16 Hospitalization History bilat pleural effusion-[facility] 10/30/16
--- OUTSIDE RECORDS SUMMARY | 2017-02-01 06:18 | XMS REPORT ---
Author Author TASHA MEDEROS Organization 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 Active 82914089 Problem Poor vision H54.7 Active 635410253 Problem Unstable gait R26.81 Active 73486882 Problem Exudative pleural effusion J90 Active 74614661259698 Problem HTN (hypertension) I10 Active 61908695 Problem Screening for breast cancer Z12.39 Active 916418947 Problem Hypothyroid E03.9 Active 74737622 Problem Type 2 diabetes mellitus with diabetic neuropathic arthropathy E11.610 Active 273538291 Problem Irritable bowel syndrome with diarrhea K58.0 Active 586973037 Problem Mild single current episode of major depressive disorder F32.0 Active 31147233 Problem DM neuro manif type II E11.49 Active 06283853 Problem Hammertoe M20.40 Active 881008920 Problem Otomycosis in moniliasis B37.84 Active 54989542 Problem Cellulitis of breast N61 Active 01514919 Problem Stress incontinence (female) (male) N39.3 Active 140039182 Problem Osteoarthritis M19.90 Active 519840392 Problem Hypercholesterolemia E78.00 Active 97853135 Problem Uncomplicated asthma, unspecified asthma severity J45.909 Active 265747539 Problem History of breast cancer Z85.3 Active 732287167 Problem Gastroesophageal reflux disease with esophagitis K21.0 Active 765506505 Problem Neuropathy G62.9 Active 377695416 Problem Other iron deficiency anemia D50.8 Active 76359304 ALLERGIES No Information SOCIAL HISTORY Never Assessed PLAN OF CARE VITAL SIGNS MEDICATIONS Medication Instructions Dosage Frequency Start Date End Date Duration Status Victoza 18 MG/3ML INJECT 1.8 Mg (0.3 ML) SUBCUTANEOUSLY ONCE DAILY June, 30 [...] of Breast CA 06/22/15 Hospitalization History pleural effusion-[facility] 10/03/16 Hospitalization History bilat pleural effusion-[facility] 10/30/16
[2017-02-01 06:35] VITALS: BP 140/78
[2017-02-01] MEDS ORDERED: ceFAZolin INJECTION 1,000 MG in NS (IVPB) 50 ML IV ONE (06:45)
[2017-02-01] MEDS ORDERED: LACTATED RINGERS 1,000 ML IV ONE (06:50)
[2017-02-01] MEDS ORDERED: proPOfol 200 MG/20 ML (DIPRIVAN) VIAL IV ONE (07:00)
[2017-02-01] MEDS ORDERED: MIDAZOLAM 2 MG/2 ML (VERSED) VIAL ONE (07:00)
[2017-02-01] MEDS ORDERED: BUPIVACAINE 0.5% 30 ML (SENSORCAINE) VIAL ONE (07:45)
[2017-02-01] MEDS ORDERED: LIDOCAINE 1% INJ 20 ML (XYLOCAINE) VIAL ONE (07:45)
--- NOTE | 2017-02-01 07:48 | Progress Note-Pre Operative ---
Pre-Operative Progress Note H&P Reviewed The H&P was reviewed, patient examined and no changes noted. Date Seen by Provider: Feb 01, 2017 Time Seen by Provider: 07:30 Date H&P Reviewed: Feb 01, 2017 Time H&P Reviewed: 07:30 Pre-Operative Diagnosis: left pleural effusion CHAVEZ HARRIS DO Feb 01, 2017 07:48
--- NOTE | 2017-02-01 08:23 | Progress Note-Post Operative ---
Post-Operative Progess Note Surgeon (s)/Hog Scraper (s) Surgeon CHAVEZ HARRIS DO Hog Scraper: na Pre-Operative Diagnosis left pleural effusion Post-Operative Diagnosis same Procedure & Operative Findings Date of Procedure 02/01/17 Procedure Performed/Findings removal left pleur-x catheter Anesthesia Type mac c local Estimated Blood Loss Estimated blood loss (mL): minimal Specimens/Packing Specimens Removed na CHAVEZ HARRIS DO Feb 01, 2017 08:23
--- NOTE | 2017-02-01 08:26 | Discharge Inst-Simple/Standard ---
Discharge Inst-Standard Patient Instructions/Follow Up Plan of Care/Instructions/FU: 10-14 days [place] Activity as Tolerated: No Discharge Diet: Regular Diet Other Inst to Patient Follow up Appt: Make appointment for 10-14 days Instructions: No lifting greater than 10 pounds. No strenuous activity. May shower in 24 hours, no tub bath or soaking. Use incentive spirometer at home as directed. No Smoking Skin/Wound Care: May remove bandages in 24 hours. You need to leave the white strips over incision on they will fall off on their own. Symptoms to Report: Appetite Changes, Extremity Discoloration, Numbness/Tingling, Swelling Increased , Bleeding Excessive, Eyesight Changes, Pain Increased, Urine Color Change, Constipation(Persistent), Fever over 101 degree F, Pain/Pressure in chest, Urinating Difficulty, Cough Up/Vomit Blood, Heart Beat Irreg/Pounding, Pain/ Pressure in jaw, Vaginal Bleeding Increase, Cramps in feet or legs, Lightheadedness, Pain/Pressure in shoulder, Diarrhea(Persistent), Memory Changes Suddenly, Questions/Concerns, Weight gain consecutive days, Dizziness/ Fainting, Nausea/Vomiting, Shortness of Breath, Weight gain over 2 pounds If questions or concerns contact your physician Or seek help at emergency department. CHAVEZ HARRIS DO Feb 01, 2017 08:26
[2017-02-01] MEDS ORDERED: morphine INJ 10 MG/ML 1ML (SYR OR VIAL) IVP PRN (08:45)
[2017-02-01] MEDS ORDERED: ONDANSETRON 4 MG/2 ML (SDV) Z0FRAN IVP PRN (08:45)
[2017-02-01] MEDS ORDERED: LIDOCAINE 1% INJ 20 ML (XYLOCAINE) VIAL INJ ONE (08:45)
[2017-02-01] MEDS ORDERED: BUPIVACAINE 0.5% 30 ML (SENSORCAINE) VIAL INJ ONE (08:45)
--- NOTE | 2017-02-01 08:50 | Diagnostic Imaging Report ---
Portable upright radiograph of the chest. INDICATION: Post Pleurx catheter removal. FINDINGS: The lungs are hyperinflated. The heart size is mildly enlarged. There is minimal vascular congestion. There is a small left pleural effusion. No pneumothorax. The mediastinum and amisha appear unremarkable. Surgical clips along the right breast and chest wall are seen. IMPRESSION: Cardiomegaly with minimal vascular congestion. Dictated by: Dictated on workstation # [id number]
[2017-02-01 08:55] VITALS: BP 138/81
[2017-02-01 08:59] VITALS: BP 138/81
--- NOTE | 2017-02-01 09:04 | Anesthesia-General Post-Op ---
MAC Patient Condition Mental Status/LOC: Same as Preop Cardiovascular: Satisfactory Nausea/Vomiting: Absent Respiratory: Satisfactory Pain: Controlled Complications: Absent Post Op Complications Complications None Follow Up Care/Instructions Patient Instructions None needed. Anesthesiology Discharge Order Discharge Order Patient is doing well, no complaints, stable vital signs, no apparent adverse anesthesia problems. No complications reported per nursing. LULI STEWART DO Feb 01, 2017 09:04
--- NOTE | 2017-02-01 09:07 | OPERATIVE REPORT ---
DATE OF SERVICE: 02/01/2017 PREOPERATIVE DIAGNOSIS: Left pleural effusion. POSTOPERATIVE DIAGNOSIS: Left pleural effusion. PROCEDURE: Removal of left PleurX catheter. SURGEON: Chavez Sanches DO ANESTHESIA: MAC with local. ESTIMATED BLOOD LOSS: Minimal. COMPLICATIONS: None. INDICATIONS: The patient is a 71-year-old female with a history of left recurrent pleural effusions. She had a PleurX catheter placement. She is no longer having any drainage from this for approximately the two months. She has some discomfort with this. She wished to have it removed. She understands risks and benefits and wished to proceed with procedure. Consent was signed in the chart. PROCEDURE: The patient was taken to the operating suite, she was prepped and draped in sterile fashion. Surgical pause was performed. Local anesthetic of 0.5% Marcaine and 1% lidocaine 50:50 ratio was used to anesthetize the area. Hemostat was used to dissect around the tubing. A second small stab incision had to be used in order to dissect further around the cuff. The tube was able to be grasped and withdrawn from the chest cavity and then removed from the tunneling. The superior incision was then closed using 3-0 nylon. The inferior exit point of the catheter remained open. The area was then washed and dried, sterile bandage was applied. The patient tolerated the procedure well without any complications and taken to the recovery room in stable condition. Chest x-ray pending. Job ID: [id number] DocumentID: [id number] Dictated Date: 02/01/2017 08:29:38 Pipe And Tank Fabricator Date: 02/01/2017 09:06:40 Dictated By: CHAVEZ SANCHES DO
[2017-02-01 09:25] VITALS: BP 132/73
== END 2017-02-01 09:50 | disposition home or self-care (01) ==
LOC: SDC 06:09
PROVIDERS: ATTEND Surgery
DX: Z48.03 Encounter for change or removal of drains (principal); Z85.3 Personal history of malignant neoplasm of breast; Z87.09 Personal history of other diseases of the respiratory system; E11.9 Type 2 diabetes mellitus without complications; I10 Essential (primary) hypertension; E78.00 Pure hypercholesterolemia, unspecified; E03.9 Hypothyroidism, unspecified; F41.9 Anxiety disorder, unspecified; K58.9 Irritable bowel syndrome, unspecified; J44.9 Chronic obstructive pulmonary disease, unspecified; Z99.81 Dependence on supplemental oxygen; Z79.82 Long term (current) use of aspirin; Z79.84 Long term (current) use of oral hypoglycemic drugs; Z79.899 Other long term (current) drug therapy; Z90.710 Acquired absence of both cervix and uterus; Z87.891 Personal history of nicotine dependence
CPT/HCPCS: 71010; 82962; 87081

== ENCOUNTER 2017-02-27 13:18 | Outpatient (RCR) | payer MEDICARE, MEDICAID ==
[2016-12-06 10:52] LABS: BASOPHILS % (AUTO) 1 % (0-10); EOSINOPHILS % (AUTO) 0 % (0-10); HEMATOCRIT 31 % (35-52); HEMOGLOBIN 9.3 G/DL (11.5-16.0); LYMPHOCYTES # (AUTO) 0.8 X 10^3 (1.0-4.0); LYMPHOCYTES % (AUTO) 36 % (12-44); MEAN CORPUSCULAR HEMOGLOBIN 26 PG (25-34); MEAN CORPUSCULAR HGB CONC 30 G/DL (32-36); MEAN CORPUSCULAR VOLUME 88 FL (80-99); MEAN PLATELET VOLUME 9.9 FL (7.4-10.4); MONOCYTES # (AUTO) 0.1 X 10^3 (0.0-1.0); MONOCYTES % (AUTO) 6 % (0-12); NEUTROPHILS # (AUTO) 1.3 X 10^3 (1.8-7.8); NEUTROPHILS % (AUTO) 57 % (42-75); PLATELET COUNT 132 10^3/uL (130-400); RED BLOOD COUNT 3.53 10^6/uL (4.35-5.85); RED CELL DISTRIBUTION WIDTH 17.2 % (10.0-14.5); WHITE BLOOD COUNT 2.3 10^3/uL (4.3-11.0)
[2016-12-06 11:08] LABS: ALANINE AMINOTRANSFERASE 9 U/L (0-55); ALBUMIN 3.3 GM/DL (3.2-4.5); ALKALINE PHOSPHATASE 55 U/L (40-136); BILIRUBIN,TOTAL 0.5 MG/DL (0.1-1.0); BUN/CREATININE RATIO 26; CALCIUM 9.2 MG/DL (8.5-10.1); CARBON DIOXIDE 24 MMOL/L (21-32); CHLORIDE 103 MMOL/L (98-107); CREATININE SERUM 0.57 MG/DL (0.60-1.30); GFR ESTIMATED > 60; GLUCOSE 186 MG/DL (70-105); POTASSIUM 3.6 MMOL/L (3.6-5.0); SODIUM 139 MMOL/L (135-145); TOTAL PROTEIN 6.5 GM/DL (6.4-8.2)
[2016-12-11 08:51] LABS: BASOPHILS % (AUTO) 1 % (0-10); EOSINOPHILS % (AUTO) 0 % (0-10); HEMATOCRIT 33 % (35-52); HEMOGLOBIN 9.8 G/DL (11.5-16.0); LYMPHOCYTES # (AUTO) 1.1 X 10^3 (1.0-4.0); LYMPHOCYTES % (AUTO) 39 % (12-44); MEAN CORPUSCULAR HEMOGLOBIN 27 PG (25-34); MEAN CORPUSCULAR HGB CONC 30 G/DL (32-36); MEAN CORPUSCULAR VOLUME 88 FL (80-99); MEAN PLATELET VOLUME 9.2 FL (7.4-10.4); MONOCYTES # (AUTO) 0.4 X 10^3 (0.0-1.0); MONOCYTES % (AUTO) 15 % (0-12); NEUTROPHILS # (AUTO) 1.3 X 10^3 (1.8-7.8); NEUTROPHILS % (AUTO) 44 % (42-75); PLATELET COUNT 214 10^3/uL (130-400); RED CELL DISTRIBUTION WIDTH 17.9 % (10.0-14.5); WHITE BLOOD COUNT 2.8 10^3/uL (4.3-11.0)
[2017-01-09 08:49] LABS: BASOPHILS % (AUTO) 2 % (0-10); EOSINOPHILS % (AUTO) 1 % (0-10); HEMATOCRIT 33 % (35-52); LYMPHOCYTES # (AUTO) 1.1 X 10^3 (1.0-4.0); LYMPHOCYTES % (AUTO) 40 % (12-44); MEAN CORPUSCULAR HEMOGLOBIN 28 PG (25-34); MEAN CORPUSCULAR HGB CONC 31 G/DL (32-36); MEAN CORPUSCULAR VOLUME 91 FL (80-99); MEAN PLATELET VOLUME 9.8 FL (7.4-10.4); MONOCYTES # (AUTO) 0.4 X 10^3 (0.0-1.0); MONOCYTES % (AUTO) 14 % (0-12); NEUTROPHILS # (AUTO) 1.2 X 10^3 (1.8-7.8); NEUTROPHILS % (AUTO) 45 % (42-75); PLATELET COUNT 138 10^3/uL (130-400); RED BLOOD COUNT 3.61 10^6/uL (4.35-5.85); RED CELL DISTRIBUTION WIDTH 20.2 % (10.0-14.5); WHITE BLOOD COUNT 2.7 10^3/uL (4.3-11.0)
[2017-01-09 09:09] LABS: ALANINE AMINOTRANSFERASE 11 U/L (0-55); ALBUMIN 3.8 GM/DL (3.2-4.5); ALKALINE PHOSPHATASE 55 U/L (40-136); BILIRUBIN,TOTAL 0.6 MG/DL (0.1-1.0); BUN/CREATININE RATIO 23; CALCIUM 9.6 MG/DL (8.5-10.1); CARBON DIOXIDE 29 MMOL/L (21-32); CHLORIDE 104 MMOL/L (98-107); CREATININE SERUM 0.57 MG/DL (0.60-1.30); GFR ESTIMATED > 60; GLUCOSE 123 MG/DL (70-105); POTASSIUM 3.9 MMOL/L (3.6-5.0); SODIUM 144 MMOL/L (135-145); TOTAL PROTEIN 7.4 GM/DL (6.4-8.2)
[2017-01-30 14:33] LABS: ALANINE AMINOTRANSFERASE 6 U/L (0-55); ALBUMIN 3.8 GM/DL (3.2-4.5); ALKALINE PHOSPHATASE 49 U/L (40-136); BILIRUBIN,TOTAL 0.5 MG/DL (0.1-1.0); BUN/CREATININE RATIO 38; CALCIUM 9.2 MG/DL (8.5-10.1); CARBON DIOXIDE 28 MMOL/L (21-32); CHLORIDE 106 MMOL/L (98-107); CREATININE SERUM 0.64 MG/DL (0.60-1.30); GFR ESTIMATED > 60; GLUCOSE 136 MG/DL (70-105); POTASSIUM 4.2 MMOL/L (3.6-5.0); SODIUM 143 MMOL/L (135-145); TOTAL PROTEIN 6.8 GM/DL (6.4-8.2)
[2017-02-27 13:31] LABS: BASOPHILS % (AUTO) 1 % (0-10); EOSINOPHILS % (AUTO) 1 % (0-10); HEMATOCRIT 30 % (35-52); HEMOGLOBIN 9.6 G/DL (11.5-16.0); LYMPHOCYTES # (AUTO) 1.4 X 10^3 (1.0-4.0); LYMPHOCYTES % (AUTO) 49 % (12-44); MEAN CORPUSCULAR HEMOGLOBIN 30 PG (25-34); MEAN CORPUSCULAR HGB CONC 32 G/DL (32-36); MEAN CORPUSCULAR VOLUME 95 FL (80-99); MEAN PLATELET VOLUME 9.3 FL (7.4-10.4); MONOCYTES # (AUTO) 0.2 X 10^3 (0.0-1.0); MONOCYTES % (AUTO) 7 % (0-12); NEUTROPHILS # (AUTO) 1.2 X 10^3 (1.8-7.8); NEUTROPHILS % (AUTO) 43 % (42-75); PLATELET COUNT 188 10^3/uL (130-400); RED CELL DISTRIBUTION WIDTH 18.6 % (10.0-14.5); WHITE BLOOD COUNT 2.9 10^3/uL (4.3-11.0)
[2017-02-27 13:53] LABS: ALANINE AMINOTRANSFERASE 11 U/L (0-55); ALBUMIN 3.9 GM/DL (3.2-4.5); ALKALINE PHOSPHATASE 42 U/L (40-136); BILIRUBIN,TOTAL 0.6 MG/DL (0.1-1.0); BUN/CREATININE RATIO 33; CALCIUM 9.2 MG/DL (8.5-10.1); CARBON DIOXIDE 31 MMOL/L (21-32); CHLORIDE 104 MMOL/L (98-107); CREATININE SERUM 0.64 MG/DL (0.60-1.30); GFR ESTIMATED > 60; GLUCOSE 117 MG/DL (70-105); POTASSIUM 3.8 MMOL/L (3.6-5.0); SODIUM 142 MMOL/L (135-145); TOTAL PROTEIN 6.8 GM/DL (6.4-8.2)
== END 2017-03-06 | disposition home or self-care (01) ==
LOC: ONC 13:18
PROVIDERS: ATTEND Internal Medicine Hematology & Oncology
DX: C50.211 Malignant neoplasm of upper-inner quadrant of right female breast (principal); E27.9 Disorder of adrenal gland, unspecified
CPT/HCPCS: 36415; 80053; 85025; 86300; 99213

== ENCOUNTER → 2017-05-10 | Outpatient (CLI) | payer MEDICARE, MEDICAID ==
--- NOTE | 2017-05-10 11:43 | Diagnostic Imaging Report ---
INDICATION: Breast carcinoma. TIME OF EXAMINATION: 11:32 a.m. COMPARISON: Correlation is made with prior study dated 02/01/2017. FINDINGS: Heart size is stable. Multiple surgical clips in the right axilla are noted. There is a focal density identified in the left mid lung, just lateral to the left hilum. This could represent summation from vascular structures. A parenchymal nodule cannot be entirely excluded. No corresponding abnormality on the lateral view is identified. The right lung is clear. No significant effusion is seen. There is no pneumothorax. IMPRESSION: Left midlung density, described above. Short interval chest radiographic followup could be performed to confirm resolution. If this does not resolve, CT chest would be recommended for further evaluation. Dictated by: Dictated on workstation # [id number]
== END ==
LOC: RAD 10:54
PROVIDERS: ATTEND Nurse Practitioner Adult Health
DX: C50.211 Malignant neoplasm of upper-inner quadrant of right female breast (principal); J91.0 Malignant pleural effusion
CPT/HCPCS: 71046

== ENCOUNTER → 2017-05-15 | Outpatient (CLI) | payer MEDICARE, MEDICAID ==
[~2017-05-15] MED LIST changes: +GADOBUTROL 7.5 MMOL/7.5 ML (GADAVIST) VIAL IV ONE
--- NOTE | 2017-05-15 12:16 | Diagnostic Imaging Report ---
CLINICAL INDICATION: Patient with history of breast cancer with metastatic cancer to lung. Patient have headaches. EXAM: MRI of the brain performed without and with 7 cc of Gadavist IV contrast. Sequences include axial DWI, ADC map, coronal gradient echo, axial T2, axial FLAIR, axial T1, axial T1 post IV contrast, coronal T1 fat-sat post IV contrast, and sagittal T1 post IV contrast. COMPARISON: MRI of the brain performed without and with IV contrast dated 10/08/2013. FINDINGS: There is no significant change to the brain parenchymal findings. There is stable focal, patchy and mildly confluent areas of high T2 signal white matter changes involving both cerebral hemispheres. Stable roughly 11 mm area of slightly ovoid high T2 signal in the posterior right periventricular region. 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 The brain parenchymal volume appears appropriate for patient's age. There is no other concern for abnormal IV contrast enhancement. There is no hydrocephalus, brain herniation or intraparenchymal hemorrhage. Basal cisterns are unremarkable. The eek of Vides vascular structures show no gross abnormality as visualized. Extra cranial soft tissue, skull, and orbits are stable. Again seen thinning and posterior convexity of the retina of globes posteriorly which may represent staphylomas. There is a small mucus retention cyst in left maxillary sinus and sphenoid sinus region. IMPRESSION: 1: Stable MRI of the brain with no evidence of developing mass. 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 . Dictated by: Dictated on workstation # [id number]
== END ==
LOC: RAD 10:54
PROVIDERS: ATTEND Nurse Practitioner Adult Health
DX: C78.00 Secondary malignant neoplasm of unspecified lung (principal); G93.89 Other specified disorders of brain; Z85.3 Personal history of malignant neoplasm of breast
CPT/HCPCS: 70553

== ENCOUNTER → 2017-05-31 | Outpatient (CLI) | payer MEDICARE, MEDICAID ==
[~2017-05-31] MED LIST changes: +BARIUM SUSPENSION 2.1% (VANILLA SILQ) 450 ML PO ONE; +CATHETER FLUSH 10 ML SYR IV PRN; -GADOBUTROL 7.5 MMOL/7.5 ML (GADAVIST) VIAL IV ONE; +IOHEXOL 350 MG/ML 100 ML (OMNIPAQUE 350) VIAL IV ONE; +NS 250 ML (IVPB) BAG IV ONE
--- NOTE | 2017-05-31 12:41 | Diagnostic Imaging Report ---
PROCEDURE: CT chest and abdomen with contrast. TECHNIQUE: Multiple contiguous axial images were obtained through the chest and abdomen after the administration of intravenous contrast. INDICATION: Right breast cancer. FINDINGS: CT CHEST: There is 11 mm noncalcified localized density seen in the left lower lobe which could be localized infiltrate or mass. The remainder of the lungs are clear. There is no effusion or pneumothorax. There is calcification in the anterior mediastinum which may be some calcified lymph nodes. No suspicious mass is seen. There is mass effect and calcifications seen adjacent to several surgical clips in right breast. There is skin thickening in the right breast. There are no acute bony abnormalities. CT ABDOMEN: The gallbladder is absent. The liver and bile ducts are normal. The spleen, pancreas and right adrenal are normal. There is a 2.3 cm left adrenal mass present. The kidneys are normal. There is no acute bowel abnormality. IMPRESSION: 1. Since the prior exam from 10/30/2016, there has been resolution of the large left-sided effusion with reexpansion of the left lung. There is 11 mm nodular density in left lower lobe which may or may not have been present on the prior study but was unable to be visualized, if present due to the compressed lung. Recommend continued followup of this. Changes in the right breast are stable compared to the prior study. 2. CT of the abdomen shows a left adrenal gland nodule which is stable compared to the 10/30/2016 study. No new abnormalities have developed. Dictated by: Dictated on workstation # [id number]
--- NOTE | 2017-05-31 15:43 | Diagnostic Imaging Report ---
INDICATION: Breast cancer EXAM: Whole body bone scan TECHNIQUE: 26.3 mCi of technetium 99m MDP was given intravenously. Whole body bone scan was obtained after an appropriate delay. FINDINGS: There is activity in the kidneys and bladder. There is no abnormal uptake in the axial or appendicular skeleton. IMPRESSION: Normal whole body bone scan. Dictated by: Dictated on workstation # [id number]
== END ==
LOC: CARD 11:44
PROVIDERS: ATTEND Nurse Practitioner Adult Health
DX: C50.211 Malignant neoplasm of upper-inner quadrant of right female breast (principal)
CPT/HCPCS: 71260; 74160; 78306

== ENCOUNTER 2017-06-07 10:50 | Outpatient (RCR) | payer MEDICARE, MEDICAID ==
[2017-04-05 09:57] LABS: ALANINE AMINOTRANSFERASE 12 U/L (0-55); ALBUMIN 3.8 GM/DL (3.2-4.5); ALKALINE PHOSPHATASE 47 U/L (40-136); BILIRUBIN,TOTAL 0.9 MG/DL (0.1-1.0); BUN/CREATININE RATIO 35; CARBON DIOXIDE 26 MMOL/L (21-32); CHLORIDE 108 MMOL/L (98-107); CREATININE SERUM 0.65 MG/DL (0.60-1.30); GFR ESTIMATED > 60; GLUCOSE 109 MG/DL (70-105); POTASSIUM 3.9 MMOL/L (3.6-5.0); SODIUM 144 MMOL/L (135-145); TOTAL PROTEIN 6.7 GM/DL (6.4-8.2)
[2017-04-05 10:36] LABS: MAGNESIUM 1.4 MG/DL (1.8-2.4)
[2017-05-10 11:34] LABS: BASOPHILS % (AUTO) 1 % (0-10); EOSINOPHILS % (AUTO) 1 % (0-10); HEMATOCRIT 33 % (35-52); HEMOGLOBIN 10.7 G/DL (11.5-16.0); LYMPHOCYTES # (AUTO) 1.3 X 10^3 (1.0-4.0); LYMPHOCYTES % (AUTO) 40 % (12-44); MEAN CORPUSCULAR HEMOGLOBIN 31 PG (25-34); MEAN CORPUSCULAR HGB CONC 32 G/DL (32-36); MEAN CORPUSCULAR VOLUME 97 FL (80-99); MEAN PLATELET VOLUME 8.8 FL (7.4-10.4); MONOCYTES # (AUTO) 0.3 X 10^3 (0.0-1.0); MONOCYTES % (AUTO) 9 % (0-12); NEUTROPHILS # (AUTO) 1.6 X 10^3 (1.8-7.8); NEUTROPHILS % (AUTO) 49 % (42-75); PLATELET COUNT 128 10^3/uL (130-400); RED BLOOD COUNT 3.43 10^6/uL (4.35-5.85); RED CELL DISTRIBUTION WIDTH 16.1 % (10.0-14.5); WHITE BLOOD COUNT 3.3 10^3/uL (4.3-11.0)
[2017-05-10 11:56] LABS: ALANINE AMINOTRANSFERASE 12 U/L (0-55); ALBUMIN 4.2 GM/DL (3.2-4.5); ALKALINE PHOSPHATASE 49 U/L (40-136); BILIRUBIN,TOTAL 0.6 MG/DL (0.1-1.0); BUN/CREATININE RATIO 35; CALCIUM 9.5 MG/DL (8.5-10.1); CARBON DIOXIDE 30 MMOL/L (21-32); CHLORIDE 106 MMOL/L (98-107); CREATININE SERUM 0.63 MG/DL (0.60-1.30); GFR ESTIMATED > 60; GLUCOSE 146 MG/DL (70-105); POTASSIUM 3.9 MMOL/L (3.6-5.0); SODIUM 144 MMOL/L (135-145); TOTAL PROTEIN 7.2 GM/DL (6.4-8.2)
[~2017-06-07 10:50] MED LIST changes: -BARIUM SUSPENSION 2.1% (VANILLA SILQ) 450 ML PO ONE; -CATHETER FLUSH 10 ML SYR IV PRN; -IOHEXOL 350 MG/ML 100 ML (OMNIPAQUE 350) VIAL IV ONE; -METF1000 PO; +METF10002 PO; -METF500T4 PO; +METF500T5 PO; -NS 250 ML (IVPB) BAG IV ONE
[2017-06-07 11:04] LABS: BASOPHILS % (AUTO) 1 % (0-10); EOSINOPHILS % (AUTO) 1 % (0-10); HEMATOCRIT 34 % (35-52); HEMOGLOBIN 10.6 G/DL (11.5-16.0); LYMPHOCYTES # (AUTO) 0.9 X 10^3 (1.0-4.0); LYMPHOCYTES % (AUTO) 27 % (12-44); MEAN CORPUSCULAR HEMOGLOBIN 31 PG (25-34); MEAN CORPUSCULAR HGB CONC 31 G/DL (32-36); MEAN CORPUSCULAR VOLUME 98 FL (80-99); MEAN PLATELET VOLUME 9.2 FL (7.4-10.4); MONOCYTES # (AUTO) 0.2 X 10^3 (0.0-1.0); MONOCYTES % (AUTO) 7 % (0-12); NEUTROPHILS % (AUTO) 64 % (42-75); PLATELET COUNT 130 10^3/uL (130-400); RED BLOOD COUNT 3.48 10^6/uL (4.35-5.85); RED CELL DISTRIBUTION WIDTH 15.6 % (10.0-14.5); WHITE BLOOD COUNT 3.1 10^3/uL (4.3-11.0)
[2017-06-07 11:22] LABS: ALANINE AMINOTRANSFERASE 13 U/L (0-55); ALBUMIN 4.1 GM/DL (3.2-4.5); ALKALINE PHOSPHATASE 51 U/L (40-136); BILIRUBIN,TOTAL 0.6 MG/DL (0.1-1.0); BUN/CREATININE RATIO 24; CALCIUM 9.6 MG/DL (8.5-10.1); CARBON DIOXIDE 31 MMOL/L (21-32); CHLORIDE 105 MMOL/L (98-107); CREATININE SERUM 0.67 MG/DL (0.60-1.30); GFR ESTIMATED > 60; GLUCOSE 195 MG/DL (70-105); POTASSIUM 4.2 MMOL/L (3.6-5.0); SODIUM 143 MMOL/L (135-145); TOTAL PROTEIN 7.3 GM/DL (6.4-8.2)
== END 2017-07-04 | disposition home or self-care (01) ==
LOC: ONC 10:50
PROVIDERS: ATTEND Internal Medicine Hematology & Oncology
DX: C50.211 Malignant neoplasm of upper-inner quadrant of right female breast (principal); J91.0 Malignant pleural effusion; E11.9 Type 2 diabetes mellitus without complications; I10 Essential (primary) hypertension; E78.00 Pure hypercholesterolemia, unspecified; E03.9 Hypothyroidism, unspecified; K21.9 Gastro-esophageal reflux disease without esophagitis; F41.9 Anxiety disorder, unspecified; I89.0 Lymphedema, not elsewhere classified; Z17.0 Estrogen receptor positive status [ER+]; Z79.811 Long term (current) use of aromatase inhibitors; Z79.82 Long term (current) use of aspirin; Z79.84 Long term (current) use of oral hypoglycemic drugs; Z79.899 Other long term (current) drug therapy
CPT/HCPCS: 36415; 80053; 83735; 85025; 86300; 99213

== ENCOUNTER 2017-10-02 09:45 | Outpatient (RCR) | payer MEDICARE, MEDICAID ==
[~2017-10-02 09:45] MED LIST changes: -CHOL200014 PO; +CHOL200085 PO; +HYDR-4196 PO; -HYDR-753 PO; -IPRA3AMP IH; +IPRA3AMP31 IH; +METF-397 PO; +METF-399 PO; -METF10002 PO; -METF500T5 PO
[2017-10-02 14:49] LABS: BASOPHILS % (AUTO) 1 % (0-10); EOSINOPHILS % (AUTO) 1 % (0-10); HEMATOCRIT 32 % (35-52); HEMOGLOBIN 10.2 G/DL (11.5-16.0); LYMPHOCYTES # (AUTO) 1.1 X 10^3 (1.0-4.0); LYMPHOCYTES % (AUTO) 30 % (12-44); MEAN CORPUSCULAR HEMOGLOBIN 32 PG (25-34); MEAN CORPUSCULAR HGB CONC 32 G/DL (32-36); MEAN CORPUSCULAR VOLUME 99 FL (80-99); MEAN PLATELET VOLUME 9.7 FL (7.4-10.4); MONOCYTES # (AUTO) 0.4 X 10^3 (0.0-1.0); MONOCYTES % (AUTO) 11 % (0-12); NEUTROPHILS # (AUTO) 2.1 X 10^3 (1.8-7.8); NEUTROPHILS % (AUTO) 57 % (42-75); PLATELET COUNT 139 10^3/uL (130-400); RED BLOOD COUNT 3.22 10^6/uL (4.35-5.85); RED CELL DISTRIBUTION WIDTH 15.3 % (10.0-14.5); WHITE BLOOD COUNT 3.7 10^3/uL (4.3-11.0)
[2017-10-02 15:10] LABS: ALANINE AMINOTRANSFERASE 17 U/L (0-55); ALKALINE PHOSPHATASE 58 U/L (40-136); BILIRUBIN,TOTAL 0.4 MG/DL (0.1-1.0); BUN/CREATININE RATIO 26; CALCIUM 9.7 MG/DL (8.5-10.1); CARBON DIOXIDE 31 MMOL/L (21-32); CHLORIDE 104 MMOL/L (98-107); CREATININE SERUM 0.66 MG/DL (0.60-1.30); GFR ESTIMATED > 60; GLUCOSE 228 MG/DL (70-105); POTASSIUM 3.9 MMOL/L (3.6-5.0); SODIUM 143 MMOL/L (135-145); TOTAL PROTEIN 7.3 GM/DL (6.4-8.2)
[2017-11-01 10:51] LABS: BASOPHILS % (AUTO) 1 % (0-10); EOSINOPHILS % (AUTO) 1 % (0-10); HEMATOCRIT 33 % (35-52); HEMOGLOBIN 10.5 G/DL (11.5-16.0); LYMPHOCYTES # (AUTO) 0.9 X 10^3 (1.0-4.0); LYMPHOCYTES % (AUTO) 31 % (12-44); MEAN CORPUSCULAR HEMOGLOBIN 31 PG (25-34); MEAN CORPUSCULAR HGB CONC 32 G/DL (32-36); MEAN CORPUSCULAR VOLUME 98 FL (80-99); MEAN PLATELET VOLUME 9.4 FL (7.4-10.4); MONOCYTES # (AUTO) 0.2 X 10^3 (0.0-1.0); MONOCYTES % (AUTO) 7 % (0-12); NEUTROPHILS # (AUTO) 1.7 X 10^3 (1.8-7.8); NEUTROPHILS % (AUTO) 60 % (42-75); PLATELET COUNT 114 10^3/uL (130-400); RED CELL DISTRIBUTION WIDTH 15.9 % (10.0-14.5); WHITE BLOOD COUNT 2.8 10^3/uL (4.3-11.0)
[2017-11-01 11:08] LABS: ALANINE AMINOTRANSFERASE 19 U/L (0-55); ALKALINE PHOSPHATASE 50 U/L (40-136); BILIRUBIN,TOTAL 0.7 MG/DL (0.1-1.0); BUN/CREATININE RATIO 30; CALCIUM 9.6 MG/DL (8.5-10.1); CARBON DIOXIDE 26 MMOL/L (21-32); CHLORIDE 103 MMOL/L (98-107); CREATININE SERUM 0.67 MG/DL (0.60-1.30); GFR ESTIMATED > 60; GLUCOSE 202 MG/DL (70-105); POTASSIUM 4.1 MMOL/L (3.6-5.0); SODIUM 140 MMOL/L (135-145)
== END 2017-11-01 08:19 | disposition home or self-care (01) ==
LOC: ONC 09:45
PROVIDERS: ATTEND Internal Medicine Hematology & Oncology
DX: C50.211 Malignant neoplasm of upper-inner quadrant of right female breast (principal); J91.0 Malignant pleural effusion; E11.9 Type 2 diabetes mellitus without complications; I10 Essential (primary) hypertension; E78.00 Pure hypercholesterolemia, unspecified; E03.9 Hypothyroidism, unspecified; K21.9 Gastro-esophageal reflux disease without esophagitis; F41.9 Anxiety disorder, unspecified; I89.0 Lymphedema, not elsewhere classified; Z17.0 Estrogen receptor positive status [ER+]; Z79.811 Long term (current) use of aromatase inhibitors; Z79.82 Long term (current) use of aspirin; Z79.84 Long term (current) use of oral hypoglycemic drugs; Z79.899 Other long term (current) drug therapy
CPT/HCPCS: 36415; 80053; 85025; 86300; 99213

== ENCOUNTER 2017-10-02 14:22 | Outpatient (RCR) | payer MEDICARE, MEDICAID ==
[2017-07-05 11:16] LABS: BASOPHILS % (AUTO) 1 % (0-10); EOSINOPHILS % (AUTO) 1 % (0-10); HEMATOCRIT 33 % (35-52); HEMOGLOBIN 10.1 G/DL (11.5-16.0); LYMPHOCYTES # (AUTO) 0.9 X 10^3 (1.0-4.0); LYMPHOCYTES % (AUTO) 36 % (12-44); MEAN CORPUSCULAR HEMOGLOBIN 31 PG (25-34); MEAN CORPUSCULAR HGB CONC 31 G/DL (32-36); MEAN CORPUSCULAR VOLUME 99 FL (80-99); MEAN PLATELET VOLUME 9.1 FL (7.4-10.4); MONOCYTES # (AUTO) 0.2 X 10^3 (0.0-1.0); MONOCYTES % (AUTO) 9 % (0-12); NEUTROPHILS # (AUTO) 1.4 X 10^3 (1.8-7.8); NEUTROPHILS % (AUTO) 54 % (42-75); PLATELET COUNT 106 10^3/uL (130-400); RED CELL DISTRIBUTION WIDTH 15.7 % (10.0-14.5); WHITE BLOOD COUNT 2.6 10^3/uL (4.3-11.0)
[2017-07-05 11:34] LABS: ALANINE AMINOTRANSFERASE 13 U/L (0-55); ALKALINE PHOSPHATASE 46 U/L (40-136); BILIRUBIN,TOTAL 0.6 MG/DL (0.1-1.0); BUN/CREATININE RATIO 30; CALCIUM 9.1 MG/DL (8.5-10.1); CARBON DIOXIDE 27 MMOL/L (21-32); CHLORIDE 110 MMOL/L (98-107); CREATININE SERUM 0.66 MG/DL (0.60-1.30); GFR ESTIMATED > 60; GLUCOSE 177 MG/DL (70-105); POTASSIUM 4.3 MMOL/L (3.6-5.0); SODIUM 146 MMOL/L (135-145); TOTAL PROTEIN 6.9 GM/DL (6.4-8.2)
[2017-07-31 10:31] LABS: BASOPHILS % (AUTO) 1 % (0-10); EOSINOPHILS % (AUTO) 1 % (0-10); HEMATOCRIT 33 % (35-52); HEMOGLOBIN 10.6 G/DL (11.5-16.0); LYMPHOCYTES # (AUTO) 1.1 X 10^3 (1.0-4.0); LYMPHOCYTES % (AUTO) 31 % (12-44); MEAN CORPUSCULAR HEMOGLOBIN 32 PG (25-34); MEAN CORPUSCULAR HGB CONC 32 G/DL (32-36); MEAN CORPUSCULAR VOLUME 99 FL (80-99); MEAN PLATELET VOLUME 9.4 FL (7.4-10.4); MONOCYTES # (AUTO) 0.2 X 10^3 (0.0-1.0); MONOCYTES % (AUTO) 7 % (0-12); NEUTROPHILS % (AUTO) 60 % (42-75); PLATELET COUNT 132 10^3/uL (130-400); RED BLOOD COUNT 3.35 10^6/uL (4.35-5.85); RED CELL DISTRIBUTION WIDTH 15.4 % (10.0-14.5); WHITE BLOOD COUNT 3.4 10^3/uL (4.3-11.0)
[2017-07-31 10:43] LABS: ALANINE AMINOTRANSFERASE 14 U/L (0-55); ALKALINE PHOSPHATASE 51 U/L (40-136); BILIRUBIN,TOTAL 0.7 MG/DL (0.1-1.0); BUN/CREATININE RATIO 28; CALCIUM 9.5 MG/DL (8.5-10.1); CARBON DIOXIDE 27 MMOL/L (21-32); CHLORIDE 107 MMOL/L (98-107); CREATININE SERUM 0.65 MG/DL (0.60-1.30); GFR ESTIMATED > 60; GLUCOSE 151 MG/DL (70-105); POTASSIUM 4.3 MMOL/L (3.6-5.0); SODIUM 145 MMOL/L (135-145); TOTAL PROTEIN 7.2 GM/DL (6.4-8.2)
[2017-09-04 08:42] LABS: BASOPHILS % (AUTO) 1 % (0-10); EOSINOPHILS % (AUTO) 1 % (0-10); HEMATOCRIT 33 % (35-52); HEMOGLOBIN 10.5 G/DL (11.5-16.0); LYMPHOCYTES % (AUTO) 34 % (12-44); MEAN CORPUSCULAR HEMOGLOBIN 32 PG (25-34); MEAN CORPUSCULAR HGB CONC 32 G/DL (32-36); MEAN CORPUSCULAR VOLUME 99 FL (80-99); MEAN PLATELET VOLUME 8.7 FL (7.4-10.4); MONOCYTES # (AUTO) 0.3 X 10^3 (0.0-1.0); MONOCYTES % (AUTO) 10 % (0-12); NEUTROPHILS # (AUTO) 1.5 X 10^3 (1.8-7.8); NEUTROPHILS % (AUTO) 53 % (42-75); PLATELET COUNT 119 10^3/uL (130-400); RED BLOOD COUNT 3.31 10^6/uL (4.35-5.85); RED CELL DISTRIBUTION WIDTH 15.8 % (10.0-14.5); WHITE BLOOD COUNT 2.8 10^3/uL (4.3-11.0)
[2017-09-04 09:03] LABS: ALANINE AMINOTRANSFERASE 16 U/L (0-55); ALBUMIN 4.1 GM/DL (3.2-4.5); ALKALINE PHOSPHATASE 49 U/L (40-136); BILIRUBIN,TOTAL 0.6 MG/DL (0.1-1.0); BUN/CREATININE RATIO 27; CALCIUM 9.6 MG/DL (8.5-10.1); CARBON DIOXIDE 29 MMOL/L (21-32); CHLORIDE 107 MMOL/L (98-107); CREATININE SERUM 0.67 MG/DL (0.60-1.30); GFR ESTIMATED > 60; GLUCOSE 182 MG/DL (70-105); POTASSIUM 4.3 MMOL/L (3.6-5.0); SODIUM 144 MMOL/L (135-145); TOTAL PROTEIN 7.1 GM/DL (6.4-8.2)
[~2017-10-02 14:22] MED LIST changes: +CHOL200014 PO; -CHOL200085 PO; -HYDR-4196 PO; +HYDR-753 PO; -METF-397 PO; -METF-399 PO; +METF10002 PO; +METF500T5 PO
[2017-10-02 14:49] LABS: BASOPHILS % (AUTO) 1 % (0-10); EOSINOPHILS % (AUTO) 1 % (0-10); HEMATOCRIT 32 % (35-52); HEMOGLOBIN 10.2 G/DL (11.5-16.0); LYMPHOCYTES # (AUTO) 1.1 X 10^3 (1.0-4.0); LYMPHOCYTES % (AUTO) 30 % (12-44); MEAN CORPUSCULAR HEMOGLOBIN 32 PG (25-34); MEAN CORPUSCULAR HGB CONC 32 G/DL (32-36); MEAN CORPUSCULAR VOLUME 99 FL (80-99); MEAN PLATELET VOLUME 9.7 FL (7.4-10.4); MONOCYTES # (AUTO) 0.4 X 10^3 (0.0-1.0); MONOCYTES % (AUTO) 11 % (0-12); NEUTROPHILS # (AUTO) 2.1 X 10^3 (1.8-7.8); NEUTROPHILS % (AUTO) 57 % (42-75); PLATELET COUNT 139 10^3/uL (130-400); RED BLOOD COUNT 3.22 10^6/uL (4.35-5.85); RED CELL DISTRIBUTION WIDTH 15.3 % (10.0-14.5); WHITE BLOOD COUNT 3.7 10^3/uL (4.3-11.0)
[2017-10-02 15:10] LABS: ALANINE AMINOTRANSFERASE 17 U/L (0-55); ALKALINE PHOSPHATASE 58 U/L (40-136); BILIRUBIN,TOTAL 0.4 MG/DL (0.1-1.0); BUN/CREATININE RATIO 26; CALCIUM 9.7 MG/DL (8.5-10.1); CARBON DIOXIDE 31 MMOL/L (21-32); CHLORIDE 104 MMOL/L (98-107); CREATININE SERUM 0.66 MG/DL (0.60-1.30); GFR ESTIMATED > 60; GLUCOSE 228 MG/DL (70-105); POTASSIUM 3.9 MMOL/L (3.6-5.0); SODIUM 143 MMOL/L (135-145); TOTAL PROTEIN 7.3 GM/DL (6.4-8.2)
== END 2017-10-03 | disposition home or self-care (01) ==
LOC: ONC 14:22
PROVIDERS: ATTEND Internal Medicine Hematology & Oncology
DX: C50.211 Malignant neoplasm of upper-inner quadrant of right female breast (principal); J91.0 Malignant pleural effusion; E11.9 Type 2 diabetes mellitus without complications; I10 Essential (primary) hypertension; E78.00 Pure hypercholesterolemia, unspecified; E03.9 Hypothyroidism, unspecified; K21.9 Gastro-esophageal reflux disease without esophagitis; F41.9 Anxiety disorder, unspecified; I89.0 Lymphedema, not elsewhere classified; Z17.0 Estrogen receptor positive status [ER+]; Z79.811 Long term (current) use of aromatase inhibitors; Z79.82 Long term (current) use of aspirin; Z79.84 Long term (current) use of oral hypoglycemic drugs; Z79.899 Other long term (current) drug therapy
CPT/HCPCS: 36415; 80053; 85025; 86300; 99213

== ENCOUNTER 2017-11-01 10:33 | Outpatient (RCR) | payer MEDICARE, MEDICAID ==
[~2017-11-01 10:33] MED LIST changes: -CHOL200014 PO; +CHOL200085 PO; +HYDR-4196 PO; -HYDR-753 PO; +METF-397 PO; +METF-399 PO; -METF10002 PO; -METF500T5 PO
== END 2017-11-18 | disposition home or self-care (01) ==
LOC: ONC 10:33
PROVIDERS: ATTEND Internal Medicine Hematology & Oncology
DX: C50.211 Malignant neoplasm of upper-inner quadrant of right female breast (principal); J91.0 Malignant pleural effusion; E11.9 Type 2 diabetes mellitus without complications; I10 Essential (primary) hypertension; E78.00 Pure hypercholesterolemia, unspecified; E03.9 Hypothyroidism, unspecified; K21.9 Gastro-esophageal reflux disease without esophagitis; F41.9 Anxiety disorder, unspecified; I89.0 Lymphedema, not elsewhere classified; Z17.0 Estrogen receptor positive status [ER+]; Z79.811 Long term (current) use of aromatase inhibitors; Z79.82 Long term (current) use of aspirin; Z79.84 Long term (current) use of oral hypoglycemic drugs; Z79.899 Other long term (current) drug therapy
CPT/HCPCS: 99213

== ENCOUNTER → 2017-12-11 | Outpatient (CLI) | payer MEDICARE, MEDICAID ==
[~2017-12-11] MED LIST changes: +IOHEXOL 350 MG/ML 100 ML (OMNIPAQUE 350) VIAL IV ONE; +NS 250 ML (IVPB) BAG IV ONE
[2017-12-11] MEDS: CATHETER FLUSH 10 ML SYR IV PRN ×2 (11:13→11:35)
--- NOTE | 2017-12-11 14:44 | Diagnostic Imaging Report ---
PROCEDURE: CT chest and abdomen with contrast. TECHNIQUE: Multiple contiguous axial images were obtained through the chest and abdomen after the administration of intravenous contrast. INDICATION: Right breast carcinoma. Comparison is made with prior CT from 05/31/2017. CT chest: FINDINGS: No axillary lymphadenopathy is seen. There are multiple surgical clips in the right axilla. Post-therapeutic changes in the right breast are again seen. There are numerous surgical clips and calcifications in the right breast as well as skin thickening, similar to prior exam. No hilar lymphadenopathy is seen. The mediastinum appears to be stable. Minimal soft tissue in the subcarinal location adjacent to the right mainstem bronchus is noted and slightly prominent but similar to prior exam. No pericardial fluid is seen. There continues to be a small left pleural effusion/pleural thickening. There is some fluid in the major fissure on the left. There has been development of a small amount of pleural fluid on the right layering dependently. A small new density in the right upper lobe posteriorly image 13 is seen measuring 9 mm. This is indeterminate. The vague density in superior segment of left lower lobe is again noted but appears slightly smaller on today's study at 9 mm compared with 11 mm. There is some atelectasis or scarring in the lingula. IMPRESSION: 1. Slight increase in left-sided pleural fluid and development of a small right pleural effusion when compared with examination from 05/31/2017. 2. Stable to decrease in size of left lower lobe density when compared with prior. There is a new indeterminate vague density in the right upper lobe. Continued followup is recommended. 3. No other significant abnormality is seen. CT abdomen: FINDINGS: There is generalized low density in the liver consistent with hepatic steatosis. No discrete liver mass is identified. There is some patchy low density in the mid right lobe, indeterminate. There are surgical clips in the gallbladder fossa. The pancreas and spleen are unremarkable. Left adrenal mass is again noted and measures 2.1 cm compared with 2.3 cm. The kidneys are unremarkable. Aorta is nonaneurysmal. No central retroperitoneal or mesenteric lymphadenopathy is seen. Small and large bowel loops are normal caliber. There is no ascites. IMPRESSION: Overall stable CT of the abdomen when compared with prior study from 05/31/2017. Dictated by: Dictated on workstation # [id number]
--- NOTE | 2017-12-11 14:51 | Diagnostic Imaging Report ---
INDICATION: Right breast carcinoma. TECHNIQUE: The patient was administered 25.7 mCi technetium 99m MDP intravenously and whole body imaging was performed after three-hour delay. COMPARISON: Comparison is made with prior whole body bone scan from 05/31/2017. FINDINGS: There is normal uptake of activity by the axial and appendicular skeleton. There is uptake by both kidneys with excretion into the urinary bladder. No abnormal foci of tracer accumulation are seen to suggest osseous metastatic disease. IMPRESSION: No scintigraphic evidence of osseous metastatic disease. Dictated by: Dictated on workstation # [id number]
== END ==
LOC: CARD 10:56
PROVIDERS: ATTEND Nurse Practitioner Adult Health
DX: C50.211 Malignant neoplasm of upper-inner quadrant of right female breast (principal); J91.0 Malignant pleural effusion
CPT/HCPCS: 71260; 74160; 78306

== ENCOUNTER 2018-01-28 09:00 | Outpatient (RCR) | payer MEDICARE, MEDICAID ==
[2017-11-29 13:19] LABS: BASOPHILS # (AUTO) 0.1 10^3/uL (0.0-0.1); BASOPHILS % (AUTO) 2 % (0-10); EOSINOPHILS % (AUTO) 1 % (0-10); HEMATOCRIT 33 % (35-52); HEMOGLOBIN 10.5 G/DL (11.5-16.0); LYMPHOCYTES # (AUTO) 1.2 X 10^3 (1.0-4.0); LYMPHOCYTES % (AUTO) 36 % (12-44); MEAN CORPUSCULAR HEMOGLOBIN 31 PG (25-34); MEAN CORPUSCULAR HGB CONC 32 G/DL (32-36); MEAN CORPUSCULAR VOLUME 97 FL (80-99); MEAN PLATELET VOLUME 9.8 FL (7.4-10.4); MONOCYTES # (AUTO) 0.3 X 10^3 (0.0-1.0); MONOCYTES % (AUTO) 9 % (0-12); NEUTROPHILS # (AUTO) 1.7 X 10^3 (1.8-7.8); NEUTROPHILS % (AUTO) 53 % (42-75); PLATELET COUNT 139 10^3/uL (130-400); RED BLOOD COUNT 3.41 10^6/uL (4.35-5.85); RED CELL DISTRIBUTION WIDTH 15.8 % (10.0-14.5); WHITE BLOOD COUNT 3.3 10^3/uL (4.3-11.0)
[2017-11-29 13:40] LABS: ALANINE AMINOTRANSFERASE 20 U/L (0-55); ALKALINE PHOSPHATASE 55 U/L (40-136); BILIRUBIN,TOTAL 0.6 MG/DL (0.1-1.0); BUN/CREATININE RATIO 26; CALCIUM 9.7 MG/DL (8.5-10.1); CARBON DIOXIDE 27 MMOL/L (21-32); CHLORIDE 105 MMOL/L (98-107); CREATININE SERUM 0.74 MG/DL (0.60-1.30); GFR ESTIMATED > 60; GLUCOSE 194 MG/DL (70-105); POTASSIUM 4.4 MMOL/L (3.6-5.0); SODIUM 141 MMOL/L (135-145); TOTAL PROTEIN 7.2 GM/DL (6.4-8.2)
[2018-01-01 09:10] LABS: BASOPHILS % (AUTO) 1 % (0-10); EOSINOPHILS % (AUTO) 1 % (0-10); HEMATOCRIT 34 % (35-52); HEMOGLOBIN 10.5 G/DL (11.5-16.0); LYMPHOCYTES # (AUTO) 1.2 X 10^3 (1.0-4.0); LYMPHOCYTES % (AUTO) 37 % (12-44); MEAN CORPUSCULAR HEMOGLOBIN 30 PG (25-34); MEAN CORPUSCULAR HGB CONC 31 G/DL (32-36); MEAN CORPUSCULAR VOLUME 99 FL (80-99); MEAN PLATELET VOLUME 9.6 FL (7.4-10.4); MONOCYTES # (AUTO) 0.5 X 10^3 (0.0-1.0); MONOCYTES % (AUTO) 14 % (0-12); NEUTROPHILS # (AUTO) 1.5 X 10^3 (1.8-7.8); NEUTROPHILS % (AUTO) 47 % (42-75); PLATELET COUNT 121 10^3/uL (130-400); RED BLOOD COUNT 3.48 10^6/uL (4.35-5.85); RED CELL DISTRIBUTION WIDTH 16.3 % (10.0-14.5); WHITE BLOOD COUNT 3.3 10^3/uL (4.3-11.0)
[2018-01-01 09:38] LABS: ALANINE AMINOTRANSFERASE 17 U/L (0-55); ALBUMIN 4.1 GM/DL (3.2-4.5); ALKALINE PHOSPHATASE 57 U/L (40-136); BILIRUBIN,TOTAL 0.6 MG/DL (0.1-1.0); BUN/CREATININE RATIO 27; CALCIUM 9.8 MG/DL (8.5-10.1); CARBON DIOXIDE 30 MMOL/L (21-32); CHLORIDE 104 MMOL/L (98-107); CREATININE SERUM 0.74 MG/DL (0.60-1.30); GFR ESTIMATED > 60; GLUCOSE 202 MG/DL (70-105); POTASSIUM 4.6 MMOL/L (3.6-5.0); SODIUM 143 MMOL/L (135-145); TOTAL PROTEIN 7.3 GM/DL (6.4-8.2)
[~2018-01-28 09:00] MED LIST changes: -IOHEXOL 350 MG/ML 100 ML (OMNIPAQUE 350) VIAL IV ONE; -NS 250 ML (IVPB) BAG IV ONE
[2018-01-28 09:16] LABS: BASOPHILS % (AUTO) 1 % (0-10); EOSINOPHILS # (AUTO) 0.1 10^3/uL (0.0-0.3); EOSINOPHILS % (AUTO) 2 % (0-10); HEMATOCRIT 36 % (35-52); HEMOGLOBIN 11.1 G/DL (11.5-16.0); LYMPHOCYTES % (AUTO) 30 % (12-44); MEAN CORPUSCULAR HEMOGLOBIN 31 PG (25-34); MEAN CORPUSCULAR HGB CONC 31 G/DL (32-36); MEAN CORPUSCULAR VOLUME 99 FL (80-99); MEAN PLATELET VOLUME 9.4 FL (7.4-10.4); MONOCYTES # (AUTO) 0.3 X 10^3 (0.0-1.0); MONOCYTES % (AUTO) 9 % (0-12); NEUTROPHILS # (AUTO) 1.9 X 10^3 (1.8-7.8); NEUTROPHILS % (AUTO) 59 % (42-75); PLATELET COUNT 132 10^3/uL (130-400); RED BLOOD COUNT 3.61 10^6/uL (4.35-5.85); RED CELL DISTRIBUTION WIDTH 16.3 % (10.0-14.5); WHITE BLOOD COUNT 3.3 10^3/uL (4.3-11.0)
[2018-01-28 09:40] LABS: ALANINE AMINOTRANSFERASE 20 U/L (0-55); ALBUMIN 4.1 GM/DL (3.2-4.5); ALKALINE PHOSPHATASE 59 U/L (40-136); BILIRUBIN,TOTAL 0.6 MG/DL (0.1-1.0); BUN/CREATININE RATIO 25; CALCIUM 9.6 MG/DL (8.5-10.1); CARBON DIOXIDE 30 MMOL/L (21-32); CHLORIDE 103 MMOL/L (98-107); GFR ESTIMATED > 60; GLUCOSE 286 MG/DL (70-105); POTASSIUM 4.4 MMOL/L (3.6-5.0); SODIUM 142 MMOL/L (135-145); TOTAL PROTEIN 7.3 GM/DL (6.4-8.2)
[2018-02-28 09:14] LABS: BASOPHILS % (AUTO) 1 % (0-10); EOSINOPHILS % (AUTO) 1 % (0-10); HEMATOCRIT 34 % (35-52); HEMOGLOBIN 10.5 G/DL (11.5-16.0); LYMPHOCYTES % (AUTO) 32 % (12-44); MEAN CORPUSCULAR HEMOGLOBIN 31 PG (25-34); MEAN CORPUSCULAR HGB CONC 31 G/DL (32-36); MEAN CORPUSCULAR VOLUME 100 FL (80-99); MEAN PLATELET VOLUME 9.8 FL (7.4-10.4); MONOCYTES # (AUTO) 0.3 X 10^3 (0.0-1.0); MONOCYTES % (AUTO) 11 % (0-12); NEUTROPHILS # (AUTO) 1.7 X 10^3 (1.8-7.8); NEUTROPHILS % (AUTO) 56 % (42-75); PLATELET COUNT 139 10^3/uL (130-400); RED BLOOD COUNT 3.37 10^6/uL (4.35-5.85); RED CELL DISTRIBUTION WIDTH 15.7 % (10.0-14.5)
[2018-02-28 09:26] LABS: ALANINE AMINOTRANSFERASE 16 U/L (0-55); ALBUMIN 3.9 GM/DL (3.2-4.5); ALKALINE PHOSPHATASE 64 U/L (40-136); BILIRUBIN,TOTAL 0.7 MG/DL (0.1-1.0); BUN/CREATININE RATIO 26; CALCIUM 9.2 MG/DL (8.5-10.1); CARBON DIOXIDE 29 MMOL/L (21-32); CHLORIDE 102 MMOL/L (98-107); CREATININE SERUM 0.73 MG/DL (0.60-1.30); GFR ESTIMATED > 60; GLUCOSE 231 MG/DL (70-105); POTASSIUM 4.1 MMOL/L (3.6-5.0); SODIUM 141 MMOL/L (135-145); TOTAL PROTEIN 6.8 GM/DL (6.4-8.2)
== END 2018-02-27 | disposition home or self-care (01) ==
LOC: ONC 09:00
PROVIDERS: ATTEND Internal Medicine Hematology & Oncology
DX: C50.211 Malignant neoplasm of upper-inner quadrant of right female breast (principal); J91.0 Malignant pleural effusion; E11.9 Type 2 diabetes mellitus without complications; I10 Essential (primary) hypertension; E78.00 Pure hypercholesterolemia, unspecified; E03.9 Hypothyroidism, unspecified; K21.9 Gastro-esophageal reflux disease without esophagitis; F41.9 Anxiety disorder, unspecified; I89.0 Lymphedema, not elsewhere classified; Z17.0 Estrogen receptor positive status [ER+]; Z79.811 Long term (current) use of aromatase inhibitors; Z79.82 Long term (current) use of aspirin; Z79.84 Long term (current) use of oral hypoglycemic drugs; Z79.899 Other long term (current) drug therapy
CPT/HCPCS: 36415; 80053; 85025; 86300; 99213

== ENCOUNTER → 2018-03-21 | Outpatient (CLI) | payer MEDICARE, MEDICAID ==
[~2018-03-21] MED LIST changes: +BARIUM SUSPENSION 2.1% (VANILLA SILQ) 450 ML PO ONE; +CATHETER FLUSH 10 ML SYR IV PRN; +CHOL200014 PO; -CHOL200085 PO; +IOHEXOL 350 MG/ML 100 ML (OMNIPAQUE 350) VIAL IV ONE; +NS 100 ML (IVPB) BAG IV ONE; +RECEIVED CONTRAST (Hold Metformin) IV SCH
--- NOTE | 2018-03-21 13:16 | Diagnostic Imaging Report ---
PROCEDURE: CT chest and abdomen with contrast. TECHNIQUE: Multiple contiguous axial images were obtained through the chest and abdomen after the administration of intravenous contrast. INDICATION: Breast cancer. COMPARISON: Comparison made with prior examination 12/11/2017. FINDINGS: There is an unchanged slightly irregular soft tissue density in the left lower lobe. There is atelectasis and/or pneumonitis in the lingula also unchanged. There are small bilateral pleural effusions. Previously seen density in the right upper lobe is not appreciated on today's exam. Thoracic aorta is normal in caliber without evidence of dissection. Heart size is normal. There is no pathologically enlarged adenopathy in the chest. There are extensive post therapeutic changes in the right breast. There are degenerative changes in the spine. The liver is normal in size without focal lesions. Gallbladder is surgically absent. Spleen is normal. The pancreas is normal in appearance. There is an unchanged 2 cm left adrenal mass. The right adrenal is normal in appearance. Kidneys are normal in appearance. Aorta is nonaneurysmal. Bowel gas pattern is nonspecific. IMPRESSION: 1. Persistent small bilateral pleural effusions left greater than right with unchanged density in the left lung base as well as some atelectasis and/or pneumonitis in the lingula. 2. The previously seen right upper lobe nodule is not appreciated on today's exam. 3. Extensive post therapeutic changes in the right breast. 4. Unchanged 2 cm left adrenal mass. 5. No other acute abnormality in the chest or abdomen. Dictated by: Dictated on workstation # [id number]
--- NOTE | 2018-03-21 21:23 | Diagnostic Imaging Report ---
INDICATION: Right breast cancer. Patient received 25.7 mCi intravenous dose of technetium-99 MDP and after 3 hours whole body planar imaging was performed. Exam compared with prior 12/11/2017 and interpreted in correlation with CT performed earlier this same date. FINDINGS: There is uptake in an upper thoracic vertebral body endplate believed to be the T3 level which shows superior endplate compression on earlier CT. This may be healing subacute fracture, correlate with any back pain. The remaining spine unremarkable. There is an arthritic pattern of uptake about the right greater than left knees, chronic. Calvarium unremarkable. No suspicious sternomanubrial uptake. The ribs unremarkable. The pelvis unremarkable. IMPRESSION: Uptake in the upper thoracic spine probably related to a subacute compression fracture. Chronic benign degenerative distribution of the radiopharmacy otherwise unchanged with no scintigraphic features felt suspect for bone scan evidence for bony metastases. Dictated by: Dictated on workstation # [id number]
== END ==
LOC: CARD 11:58
PROVIDERS: ATTEND Nurse Practitioner Adult Health
DX: C50.211 Malignant neoplasm of upper-inner quadrant of right female breast (principal); J91.0 Malignant pleural effusion
CPT/HCPCS: 71260; 74160; 78306

== ENCOUNTER → 2018-05-29 | Outpatient (CLI) | payer MEDICARE, MEDICAID ==
[~2018-05-29] MED LIST changes: -BARIUM SUSPENSION 2.1% (VANILLA SILQ) 450 ML PO ONE; -CATHETER FLUSH 10 ML SYR IV PRN; -IOHEXOL 350 MG/ML 100 ML (OMNIPAQUE 350) VIAL IV ONE; -NS 100 ML (IVPB) BAG IV ONE; -RECEIVED CONTRAST (Hold Metformin) IV SCH
--- NOTE | 2018-05-29 16:06 | Diagnostic Imaging Report ---
INDICATION: Chest pain. FINDINGS: There are multiple surgical gianluca in the right breast and axilla. There is an elliptical pleural-based density in the left chest wall measuring 9 cm in diameter and 3.3 cm in thickness. There may be a tiny right pleural effusion. IMPRESSION: Pleural-based opacity in the left mid lateral chest, new since 05/10/2017. This could be loculated effusion, hematoma, and/or mass. Dictated by: Dictated on workstation # [id number]
== END ==
LOC: RAD 14:22
PROVIDERS: ATTEND Nurse Practitioner Adult Health
DX: C50.919 Malignant neoplasm of unspecified site of unspecified female breast (principal); R91.8 Other nonspecific abnormal finding of lung field; R07.9 Chest pain, unspecified; Z98.890 Other specified postprocedural states
CPT/HCPCS: 71046

== ENCOUNTER → 2018-05-29 | Outpatient (RCR) | payer MEDICARE, MEDICAID ==
[2018-02-28 09:14] LABS: BASOPHILS % (AUTO) 1 % (0-10); EOSINOPHILS % (AUTO) 1 % (0-10); HEMATOCRIT 34 % (35-52); HEMOGLOBIN 10.5 G/DL (11.5-16.0); LYMPHOCYTES % (AUTO) 32 % (12-44); MEAN CORPUSCULAR HEMOGLOBIN 31 PG (25-34); MEAN CORPUSCULAR HGB CONC 31 G/DL (32-36); MEAN CORPUSCULAR VOLUME 100 FL (80-99); MEAN PLATELET VOLUME 9.8 FL (7.4-10.4); MONOCYTES # (AUTO) 0.3 X 10^3 (0.0-1.0); MONOCYTES % (AUTO) 11 % (0-12); NEUTROPHILS # (AUTO) 1.7 X 10^3 (1.8-7.8); NEUTROPHILS % (AUTO) 56 % (42-75); PLATELET COUNT 139 10^3/uL (130-400); RED CELL DISTRIBUTION WIDTH 15.7 % (10.0-14.5)
[2018-02-28 09:26] LABS: ALANINE AMINOTRANSFERASE 16 U/L (0-55); ALBUMIN 3.9 GM/DL (3.2-4.5); ALKALINE PHOSPHATASE 64 U/L (40-136); BILIRUBIN,TOTAL 0.7 MG/DL (0.1-1.0); BUN/CREATININE RATIO 26; CALCIUM 9.2 MG/DL (8.5-10.1); CARBON DIOXIDE 29 MMOL/L (21-32); CHLORIDE 102 MMOL/L (98-107); CREATININE SERUM 0.73 MG/DL (0.60-1.30); GFR ESTIMATED > 60; GLUCOSE 231 MG/DL (70-105); POTASSIUM 4.1 MMOL/L (3.6-5.0); SODIUM 141 MMOL/L (135-145); TOTAL PROTEIN 6.8 GM/DL (6.4-8.2)
[2018-03-28 08:58] LABS: BASOPHILS % (AUTO) 1 % (0-10); EOSINOPHILS % (AUTO) 1 % (0-10); HEMATOCRIT 34 % (35-52); HEMOGLOBIN 10.4 G/DL (11.5-16.0); LYMPHOCYTES # (AUTO) 0.9 X 10^3 (1.0-4.0); LYMPHOCYTES % (AUTO) 29 % (12-44); MEAN CORPUSCULAR HGB CONC 31 G/DL (32-36); MEAN CORPUSCULAR VOLUME 98 FL (80-99); MEAN PLATELET VOLUME 9.6 FL (7.4-10.4); MONOCYTES # (AUTO) 0.2 X 10^3 (0.0-1.0); MONOCYTES % (AUTO) 7 % (0-12); NEUTROPHILS # (AUTO) 1.8 X 10^3 (1.8-7.8); NEUTROPHILS % (AUTO) 63 % (42-75); PLATELET COUNT 124 10^3/uL (130-400); RED CELL DISTRIBUTION WIDTH 15.7 % (10.0-14.5); WHITE BLOOD COUNT 2.9 10^3/uL (4.3-11.0)
[2018-03-28 08:59] LABS: MEAN CORPUSCULAR HEMOGLOBIN 30 PG (25-34)
[2018-03-28 09:18] LABS: ALANINE AMINOTRANSFERASE 15 U/L (0-55); ALBUMIN 3.9 GM/DL (3.2-4.5); ALKALINE PHOSPHATASE 60 U/L (40-136); BILIRUBIN,TOTAL 0.6 MG/DL (0.1-1.0); BUN/CREATININE RATIO 26; CALCIUM 9.4 MG/DL (8.5-10.1); CARBON DIOXIDE 27 MMOL/L (21-32); CHLORIDE 102 MMOL/L (98-107); CREATININE SERUM 0.72 MG/DL (0.60-1.30); GFR ESTIMATED > 60; GLUCOSE 251 MG/DL (70-105); POTASSIUM 4.2 MMOL/L (3.6-5.0); SODIUM 141 MMOL/L (135-145); TOTAL PROTEIN 6.9 GM/DL (6.4-8.2)
[2018-04-25 16:08] LABS: BASOPHILS % (AUTO) 1 % (0-10); EOSINOPHILS % (AUTO) 1 % (0-10); HEMATOCRIT 32 % (35-52); HEMOGLOBIN 9.9 G/DL (11.5-16.0); LYMPHOCYTES # (AUTO) 1.2 X 10^3 (1.0-4.0); LYMPHOCYTES % (AUTO) 31 % (12-44); MEAN CORPUSCULAR HEMOGLOBIN 30 PG (25-34); MEAN CORPUSCULAR HGB CONC 31 G/DL (32-36); MEAN CORPUSCULAR VOLUME 98 FL (80-99); MEAN PLATELET VOLUME 9.8 FL (7.4-10.4); MONOCYTES # (AUTO) 0.4 X 10^3 (0.0-1.0); MONOCYTES % (AUTO) 11 % (0-12); NEUTROPHILS # (AUTO) 2.2 X 10^3 (1.8-7.8); NEUTROPHILS % (AUTO) 57 % (42-75); PLATELET COUNT 179 10^3/uL (130-400); RED CELL DISTRIBUTION WIDTH 16.5 % (10.0-14.5)
[2018-04-25 16:27] LABS: ALANINE AMINOTRANSFERASE 13 U/L (0-55); ALBUMIN 3.9 GM/DL (3.2-4.5); ALKALINE PHOSPHATASE 59 U/L (40-136); BILIRUBIN,TOTAL 0.4 MG/DL (0.1-1.0); BUN/CREATININE RATIO 21; CALCIUM 9.2 MG/DL (8.5-10.1); CARBON DIOXIDE 29 MMOL/L (21-32); CHLORIDE 103 MMOL/L (98-107); CREATININE SERUM 0.73 MG/DL (0.60-1.30); GFR ESTIMATED > 60; GLUCOSE 170 MG/DL (70-105); POTASSIUM 4.2 MMOL/L (3.6-5.0); SODIUM 142 MMOL/L (135-145)
[2018-05-23 14:32] LABS: BASOPHILS % (AUTO) 1 % (0-10); EOSINOPHILS % (AUTO) 1 % (0-10); HEMATOCRIT 34 % (35-52); HEMOGLOBIN 10.6 G/DL (11.5-16.0); LYMPHOCYTES # (AUTO) 1.1 X 10^3 (1.0-4.0); LYMPHOCYTES % (AUTO) 29 % (12-44); MEAN CORPUSCULAR HEMOGLOBIN 30 PG (25-34); MEAN CORPUSCULAR HGB CONC 31 G/DL (32-36); MEAN CORPUSCULAR VOLUME 97 FL (80-99); MEAN PLATELET VOLUME 9.4 FL (7.4-10.4); MONOCYTES # (AUTO) 0.3 X 10^3 (0.0-1.0); MONOCYTES % (AUTO) 8 % (0-12); NEUTROPHILS # (AUTO) 2.3 X 10^3 (1.8-7.8); NEUTROPHILS % (AUTO) 61 % (42-75); PLATELET COUNT 152 10^3/uL (130-400); RED CELL DISTRIBUTION WIDTH 16.4 % (10.0-14.5); WHITE BLOOD COUNT 3.7 10^3/uL (4.3-11.0)
[2018-05-23 14:58] LABS: ALANINE AMINOTRANSFERASE 14 U/L (0-55); ALBUMIN 3.9 GM/DL (3.2-4.5); ALKALINE PHOSPHATASE 78 U/L (40-136); BILIRUBIN,TOTAL 0.5 MG/DL (0.1-1.0); BUN/CREATININE RATIO 24; CALCIUM 9.9 MG/DL (8.5-10.1); CARBON DIOXIDE 30 MMOL/L (21-32); CHLORIDE 102 MMOL/L (98-107); CREATININE SERUM 0.67 MG/DL (0.60-1.30); GFR ESTIMATED > 60; GLUCOSE 205 MG/DL (70-105); POTASSIUM 4.1 MMOL/L (3.6-5.0); SODIUM 141 MMOL/L (135-145)
== END | disposition home or self-care (01) ==
LOC: ONC 02-28 08:56
PROVIDERS: ATTEND Internal Medicine Hematology & Oncology
DX: C50.211 Malignant neoplasm of upper-inner quadrant of right female breast (principal); J91.0 Malignant pleural effusion; E11.9 Type 2 diabetes mellitus without complications; I10 Essential (primary) hypertension; E78.00 Pure hypercholesterolemia, unspecified; E03.9 Hypothyroidism, unspecified; K21.9 Gastro-esophageal reflux disease without esophagitis; F41.9 Anxiety disorder, unspecified; I89.0 Lymphedema, not elsewhere classified; Z17.0 Estrogen receptor positive status [ER+]; Z79.811 Long term (current) use of aromatase inhibitors; Z79.82 Long term (current) use of aspirin; Z79.84 Long term (current) use of oral hypoglycemic drugs; Z79.899 Other long term (current) drug therapy
CPT/HCPCS: 36415; 80053; 85025; 86300; 99213

== ENCOUNTER → 2018-05-30 | Outpatient (CLI) | payer MEDICARE, MEDICAID ==
[~2018-05-30] MED LIST changes: +BARIUM SUSPENSION 2.1% (VANILLA SILQ) 450 ML PO ONE; +CATHETER FLUSH 10 ML SYR IV PRN; +HOLD METFORMIN - RECEIVED CONTRAST 20 ML VIAL IV SCH; +IOHEXOL 350 MG/ML 100 ML (OMNIPAQUE 350) VIAL IV ONE
--- NOTE | 2018-05-30 12:40 | Diagnostic Imaging Report ---
PROCEDURE: CT head with and without contrast. TECHNIQUE: Multiple contiguous axial images were obtained through the brain before and after the administration of intravenous contrast. Auto Exposure Controls were utilized during the CT exam to meet ALARA standards for radiation dose reduction. INDICATION: Elevated tumor markers in breast cancer patient. Comparison is made to study of 08/11/2016. Ventricles and sulci are diffusely prominent. There is a focal region of low density within the deep white matter of the posterior right frontal lobe. This was likely present on the previous study but is somewhat more conspicuous on the current examination. This demonstrates no definite enhancement. There is no evidence of hemorrhage. No other mass is identified. There is no abnormal contrast enhancement. Note is made of prominence of pituitary gland which measures approximately 0.9 cm in diameter on axial images. Calvarium is intact and the visualized paranasal sinuses are clear. IMPRESSION: No definite acute abnormality identified. There is mild increase in low-density within the deep white matter of the right frontal lobe. This likely represents area of gliosis from previous insult. If further evaluation is warranted, MRI could be considered for assessment. Dictated by: Dictated on workstation # [id number]
--- NOTE | 2018-05-30 14:00 | Diagnostic Imaging Report ---
PROCEDURE: CT chest and abdomen with contrast. TECHNIQUE: Multiple contiguous axial images were obtained through the chest and abdomen after the administration of intravenous contrast. Auto Exposure Controls were utilized during the CT exam to meet ALARA standards for radiation dose reduction. INDICATION: Breast cancer and elevated tumor markers. COMPARISON: Comparison made with prior examination from 03/21/2018. FINDINGS: There is a partially loculated left pleural effusion. There is a lingular and left basilar infiltrate. There is a small nonloculated right pleural effusion. There is a mass-like infiltrate in the right middle lobe measuring 2.1 cm. There are post-therapeutic changes in the right breast where there are large dystrophic calcifications. The thoracic aorta is normal in caliber. Heart size is normal. There are degenerative changes in the spine. There is a questionable compression fracture of the T11 vertebral body. The liver is normal in size and without focal lesions. Gallbladder appears to be surgically absent. Spleen is normal. The pancreas is normal in appearance. There is an unchanged 2 cm left adrenal mass. The right adrenal is normal. The kidneys are normal in appearance. The aorta is nonaneurysmal. Bowel gas pattern is nonspecific. There is no free air. There is no ascites. IMPRESSION: Increased loculated effusion on the left with a patchy infiltrate in the left lung base and lingula. Small right pleural effusion with a more mass-like infiltrate in the right middle lobe. While this may simply be due to focal pneumonitis, neoplasm cannot be excluded. Post-therapeutic changes in the right breast. Unchanged left adrenal mass. Questionable mild compression fracture of the T11 vertebral body. This could be better evaluated with MRI. Dictated by: Dictated on workstation # [id number]
--- NOTE | 2018-05-30 15:33 | Diagnostic Imaging Report ---
INDICATION: Restage neoplasm. COMPARISON: Comparison is made with prior examination of March 21, 2018. FINDINGS: There is a new focal area of linear uptake in what appears be T11 vertebral body suspect for compression fracture. There is also some slight linear uptake in the L3 vertebral body. There is mild uptake in the knees and ankles bilaterally likely degenerative. There is physiologic uptake within the kidneys bilaterally with excretion in urinary bladder. There is no definitive evidence of osteoblastic metastatic disease. IMPRESSION: 1. Increased uptake in the T11 and L3 vertebral body suspect for compression fractures. Further evaluation with MRI is recommended. 2. Degenerative uptake in the knees, ankles, and to a lesser degree shoulders. 3. No evidence of osteoblastic metastatic disease. Dictated by: Dictated on workstation # [id number]
== END ==
LOC: CARD 11:23
PROVIDERS: ATTEND Nurse Practitioner Adult Health
DX: Z01.89 Encounter for other specified special examinations (principal); C50.919 Malignant neoplasm of unspecified site of unspecified female breast; R97.8 Other abnormal tumor markers; J90 Pleural effusion, not elsewhere classified
CPT/HCPCS: 70470; 71260; 74160; 78306

== ENCOUNTER → 2018-05-31 | Outpatient (CLI) | payer MEDICARE, MEDICAID ==
[~2018-05-31] MED LIST changes: -BARIUM SUSPENSION 2.1% (VANILLA SILQ) 450 ML PO ONE; -CATHETER FLUSH 10 ML SYR IV PRN; +GADOBUTROL 10 MMOL/10 ML (GADAVIST) VIAL IV ONE; -HOLD METFORMIN - RECEIVED CONTRAST 20 ML VIAL IV SCH; -IOHEXOL 350 MG/ML 100 ML (OMNIPAQUE 350) VIAL IV ONE
--- NOTE | 2018-05-31 13:21 | Diagnostic Imaging Report ---
CLINICAL INDICATION: Patient with severe back pain and abnormal CT. Patient has history of breast cancer. EXAMS: 1: MRI of the thoracic spine performed without and with 8 cc of Gadavist IV contrast. Sequences include sagittal T2, sagittal STIR, sagittal T1, axial T2, axial T1, sagittal T1 fat-sat post IV contrast, and axial T1 post IV contrast. 2: MRI of the lumbar spine performed without and with IV contrast in conjunction with MRI of the thoracic spine. Sequences include sagittal T2, sagittal T1, sagittal STIR, axial T1, axial T2, sagittal T1 fat-sat post IV contrast, and axial T1 post IV contrast. COMPARISON: Nuclear medicine whole body bone scan dated 05/30/2018. CT scan of the chest, abdomen with contrast dated 05/30/2018. FINDINGS: Thoracic and lumbar spine: There are numerous rounded and amorphous areas of high T2, low T1, enhancement scattered throughout the thoracic and lumbar vertebrae which also involves the vertebral bodies and posterior elements. The thoracic spine shows metastatic involvement of the T3, T4, T5, T7, T8, T9, T10, T11, and T12 vertebrae. Lumbar spine shows metastatic disease involvement of the L1, L2, L3, L4, L5, S1, S2, and posterior right iliac crest. There is no evidence of acute thoracic or lumbar spine fracture. It appears to be a chronic compression deformity of the T11 vertebral body with corticated margins, but there is significant infiltrative disease within the T11 vertebra. There is also a compression deformity of the upper endplate of the L3 vertebra, but the cortical margins are not well delineated and a superimposed acute fracture cannot be completely excluded. There is a chronic compression deformity involving the upper endplate of the T3 vertebra. There are multiple Schmorl's nodes seen throughout the thoracolumbar vertebrae. There is no other concern for thoracic or lumbar spine fracture or dislocation. Thoracic spine: The thoracic spinal cord has normal cord caliber with no abnormal signal. There are mild to moderately hypertrophic spurs seen throughout the thoracic spine. There is multilevel facet arthropathy involving the thoracic spine. There is ciid-zl-myfpoqsj bony neuroforamen narrowing involving the upper thoracic spine. There is a small posterior disc bulge at the T1-T2, T2-T3, T11-T12, and T12-L1 levels. There is prominence of the posterior epidural fat involving the thoracic spine which causes diffuse mild central canal narrowing. Lumbar spine: Lumbar spine has normal alignment. There are multilevel mildly hypertrophic vertebral body spurs. There is multilevel facet arthropathy/hypertrophy involving the lower lumbar spine. The visualized portions of the distal thoracic spinal cord, conus medullaris, and cauda equina nerve roots are unremarkable. The conus medullaris tip is seen at the upper L1 vertebral body level. L1-L2: There is a diffuse disc bulge with moderate loss of intervertebral disc height and moderate bilateral facet arthropathy. There is moderate central canal narrowing and moderate right neuroforamen narrowing and ntwwzcbz-rn-vlwkvw left neuroforamen narrowing. L2-L3: There is a diffuse disc bulge with moderate bilateral facet arthropathy/hypertrophy and ligamentum flavum buckling. There is severe central canal narrowing and severe right neuroforamen narrowing. There is moderate left neuroforamen narrowing. L3-L4: There is a diffuse disc bulge with moderate bilateral facet arthropathy and ligamentum flavum buckling. There is vfmpvsfh-np-naoixy central canal narrowing, severe right neuroforamen narrowing and moderate left neuroforamen narrowing. L4-L5: Subtle grade 1 anterolisthesis of L4 on L5 with severe bilateral facet arthropathy/hypertrophy. There is mild central canal narrowing and severe bilateral neuroforamen narrowing. There is no significant posterior disc bulge. L5-S1: There is severe right facet arthropathy/hypertrophy and mild left facet arthropathy. There is a small disc bulge in the left foraminal region which contributes to mild left neuroforamen narrowing. There is no significant central canal or right neuroforamen narrowing. IMPRESSION: 1: There is diffuse osseous metastatic disease seen throughout the axial skeleton. 2: Possible mild acute or subacute pathologic compression fracture deformity involving the upper endplate of the L3 vertebra. 3: Likely chronic T11 compression fracture deformity. 4: There is multilevel thoracic and lumbar spine degenerative disease, as described above. Results of this report was discussed with Dr. Garcia via the telephone on 05/31/2018 at 1330 hrs. Dictated by: Dictated on workstation # [id number]
== END ==
LOC: RAD 10:08
PROVIDERS: ATTEND Nurse Practitioner Adult Health
DX: C79.51 Secondary malignant neoplasm of bone (principal); C50.211 Malignant neoplasm of upper-inner quadrant of right female breast; M46.87 Other specified inflammatory spondylopathies, lumbosacral region; M51.27 Other intervertebral disc displacement, lumbosacral region; M48.07 Spinal stenosis, lumbosacral region; M43.16 Spondylolisthesis, lumbar region; M51.36 Other intervertebral disc degeneration, lumbar region; M46.84 Other specified inflammatory spondylopathies, thoracic region; M51.25 Other intervertebral disc displacement, thoracolumbar region; M47.816 Spondylosis without myelopathy or radiculopathy, lumbar region; M47.814 Spondylosis without myelopathy or radiculopathy, thoracic region; M51.45 Schmorl's nodes, thoracolumbar region; M43.8X4 Other specified deforming dorsopathies, thoracic region; M48.04 Spinal stenosis, thoracic region
CPT/HCPCS: 72157; 72158

== ENCOUNTER 2018-06-12 06:27 | Outpatient (CLI) | payer MEDICARE, MEDICAID ==
[~2018-06-12] VITALS: Ht 157.5 cm; Wt 73.9 kg
[~2018-06-12 06:27] MED LIST changes: -GADOBUTROL 10 MMOL/10 ML (GADAVIST) VIAL IV ONE
[2018-06-12] MEDS ORDERED: METF750T2 PO (12:58)
[2018-06-12] MEDS ORDERED: OMEP40CA36 PO (12:58)
[2018-06-12] MEDS ORDERED: DIPH1TAB25 PO (12:58)
[2018-06-12] MEDS ORDERED: HYDR-3816 PO (12:58)
== END 2018-06-12 13:22 | disposition home or self-care (01) ==
LOC: PREOP 06:27
PROVIDERS: ATTEND Surgery
DX: Z01.818 Encounter for other preprocedural examination (principal)

== ENCOUNTER 2018-06-13 06:16 | Day surgery (SDC) | payer MEDICARE, MEDICAID ==
[~2018-06-13] VITALS: Ht 154.9 cm; Wt 73.9 kg
[2018-06-13] VITALS (9 sets, daily range): BP systolic 118–156; BP diastolic 85–96
[~2018-06-13 06:16] MED LIST changes: +DIPH1TAB25 PO; +HYDR-3816 PO; +METF750T2 PO; +OMEP40CA36 PO
[2018-06-13] MEDS ORDERED: LACTATED RINGERS 1,000 ML IV PRN (06:21)
[2018-06-13] MEDS ORDERED: ceFAZolin 2 GM IV Premixed 50 ML IV ONE (06:30)
[2018-06-13] MEDS ORDERED: CATHETER FLUSH 10 ML SYR IV PRN (06:45)
[2018-06-13] MEDS ORDERED: proPOfol 200 MG/20 ML (DIPRIVAN) VIAL IV ONE (06:57)
[2018-06-13] MEDS ORDERED: MIDAZOLAM 2 MG/2 ML (VERSED) VIAL ONE (06:57)
[2018-06-13] MEDS ORDERED: LIDOCAINE PF 2% 5 ML (XYLOCAINE) VIAL ONE (07:00)
[2018-06-13] MEDS ORDERED: FAMOTIDINE 20MG/2ML IV (PEPCID) IV ONE (07:00)
[2018-06-13] MEDS ORDERED: FAMOTIDINE 20MG/2ML IV (PEPCID) ONE (07:00)
[2018-06-13] MEDS ORDERED: 0.9% SODIUM CHLORIDE PF INJ 20 ML VIAL ONE (07:11)
[2018-06-13] MEDS ORDERED: HEParin (CENTRAL IV FLUSH) 500 UNIT/5 ML SYR ONE (07:11)
[2018-06-13] MEDS ORDERED: LIDOCAINE 1% INJ 20 ML 20 ML VIAL ONE (07:11)
[2018-06-13] MEDS ORDERED: BUP/EPI 0.5% 1:200,000 (SENSORCAINE) 30 ML VIAL ONE (07:11)
--- NOTE | 2018-06-13 07:18 | Progress Note-Pre Operative ---
Pre-Operative Progress Note H&P Reviewed The H&P was reviewed, patient examined and no changes noted. Date Seen by Provider: Jun 13, 2018 Time Seen by Provider: 07:05 Date H&P Reviewed: Jun 13, 2018 Time H&P Reviewed: 07:05 Pre-Operative Diagnosis: breast cancer, malignant pleural effusion CHAVEZ HARRIS DO Jun 13, 2018 07:17
--- NOTE | 2018-06-13 08:49 | Progress Note-Post Operative ---
Post-Operative Progess Note Surgeon (s)/Credit Card Specialist (s) Surgeon CHAVEZ HARRIS DO Credit Card Specialist: na Pre-Operative Diagnosis breast cancer, malignant pleural effusion Post-Operative Diagnosis same Procedure & Operative Findings Date of Procedure 06/13/18 Procedure Performed/Findings attempted left IJ u/s placement, right IJ us guided port placement Anesthesia Type mac c local Estimated Blood Loss Estimated blood loss (mL): min Specimens/Packing Specimens Removed na CHAVEZ HARRIS DO Jun 13, 2018 08:48
--- NOTE | 2018-06-13 09:21 | Diagnostic Imaging Report ---
INDICATION: Central line insertion Portable chest 9:04 AM Right IJ Port-A-Cath tip projects over the SVC. There is cardiomegaly with pulmonary vascular congestion. There is a small left effusion. IMPRESSION: Congestive heart failure with small left pleural effusion. There is no pneumothorax. Dictated by: Dictated on workstation # [id number]
--- NOTE | 2018-06-13 13:52 | Anesthesia-General Post-Op ---
MAC Patient Condition Mental Status/LOC: Same as Preop Cardiovascular: Satisfactory Nausea/Vomiting: Absent Respiratory: Satisfactory Pain: Controlled Complications: Absent Post Op Complications Complications None Follow Up Care/Instructions Patient Instructions None needed. Anesthesiology Discharge Order Discharge Order Patient is doing well, no complaints, stable vital signs, no apparent adverse anesthesia problems. No complications reported per nursing. ARACELIS NOONAN CRNA Jun 13, 2018 13:52
--- NOTE | 2018-06-13 14:17 | OPERATIVE REPORT ---
DATE OF SERVICE: 06/13/2018 PREOPERATIVE DIAGNOSES: Breast cancer, malignant pleural effusion. PROCEDURE: Attempted left internal jugular vein ultrasound-guided port placement right internal jugular ultrasound-guided port placement. SURGEON: Chavez Sanches DO ANESTHESIA: MAC with local. ESTIMATED BLOOD LOSS: Minimal. COMPLICATIONS: None. INDICATIONS: The patient is a 72-year-old female needing port placement due to breast cancer, malignant pleural effusion. She understands risks and benefits of procedure and wished to proceed with procedure. Consent was signed on the chart. DESCRIPTION OF PROCEDURE: The patient was taken to the operating suite, prepped and draped in sterile fashion. Timeout was performed. The left internal jugular vein was accessed. Dark nonpulsatile blood was withdrawn. The wire was unable to be advanced to the inferior vena cava. Therefore, the right internal jugular vein was then accessed under ultrasound guidance after local anesthetic was infiltrated into the area. We had dark nonpulsatile blood was withdrawn. The micro access wire was inserted through the micro access needle and the needle was removed. A #11 blade scalpel was used to make a skin incision and dilator sheath was then advanced over the micro access wire. The dilator and the wire were removed. The normal guidewire was inserted through the sheath and sheath was removed. Fluoroscopy assured proper placement. The wire was then secured. Local anesthetic was used to infiltrate around the neck and right chest for pocket creation. A 15 blade scalpel was used to make a skin incision on the chest and a pocket was created. A dilator sheath was advanced over the regular guidewire under fluoroscopy and the wire and dilator were removed. The Groshong catheter was inserted through the sheath and the sheath was then removed. The catheter was then tunneled from the insertion point to the right chest, which was then cut to length using fluoroscopy and the port was then attached to it and placed within the pocket. Port was then accessed without difficulty. It withdrew blood and flushed with saline and then with heparin without difficulty. Fluoroscopy assured proper placement. The subcutaneous tissues were then reapproximated using 3-0 Vicryl. Skin was then closed using Skin Affix and also Skin Affix at the neck insertion point. The areas were then washed and dried, sterile bandage were applied. The patient tolerated procedure well without any complications. She was in her chest to the recovery room in stable condition. Chest x-ray pending. Job ID: [id number] DocumentID: [id number] Dictated Date: 06/13/2018 09:04:12 Manager Behavior Date: 06/13/2018 14:17:12 Dictated By: CHAVEZ SANCHES DO
--- NOTE | 2018-06-13 17:41 | Diagnostic Imaging Report ---
INDICATION: Fluoroscopy during power port insertion. FINDINGS: Fluoroscopy was provided for Dr. Sanches during chest wall port placement. 38 seconds of fluoroscopy was utilized. A right-sided port appears to have the tip overlying the SVC. IMPRESSION: Fluoroscopy during power port insertion in the OR. Dictated by: Dictated on workstation # [id number]
== END 2018-06-13 09:50 | disposition home or self-care (01) ==
LOC: SDC 06:16
PROVIDERS: ATTEND Surgery
DX: C50.211 Malignant neoplasm of upper-inner quadrant of right female breast (principal); J91.0 Malignant pleural effusion; M85.9 Disorder of bone density and structure, unspecified; E11.40 Type 2 diabetes mellitus with diabetic neuropathy, unspecified; E11.51 Type 2 diabetes mellitus with diabetic peripheral angiopathy without gangrene; I10 Essential (primary) hypertension; E78.00 Pure hypercholesterolemia, unspecified; E03.9 Hypothyroidism, unspecified; K21.9 Gastro-esophageal reflux disease without esophagitis; I89.0 Lymphedema, not elsewhere classified; Z17.0 Estrogen receptor positive status [ER+]; Z79.811 Long term (current) use of aromatase inhibitors; Z79.82 Long term (current) use of aspirin; Z79.84 Long term (current) use of oral hypoglycemic drugs; Z79.899 Other long term (current) drug therapy; Z87.891 Personal history of nicotine dependence; Z92.21 Personal history of antineoplastic chemotherapy; Z92.3 Personal history of irradiation
CPT/HCPCS: 71045; 82962; 87081

== ENCOUNTER 2018-08-27 09:00 | Outpatient (RCR) | payer MEDICARE, MEDICAID ==
[2018-06-04 10:43] LABS: BASOPHILS % (AUTO) 1 % (0-10); EOSINOPHILS % (AUTO) 1 % (0-10); HEMATOCRIT 34 % (35-52); HEMOGLOBIN 10.4 G/DL (11.5-16.0); LYMPHOCYTES # (AUTO) 0.9 X 10^3 (1.0-4.0); LYMPHOCYTES % (AUTO) 22 % (12-44); MEAN CORPUSCULAR HEMOGLOBIN 30 PG (25-34); MEAN CORPUSCULAR HGB CONC 30 G/DL (32-36); MEAN CORPUSCULAR VOLUME 97 FL (80-99); MEAN PLATELET VOLUME 10.5 FL (7.4-10.4); MONOCYTES # (AUTO) 0.3 X 10^3 (0.0-1.0); MONOCYTES % (AUTO) 7 % (0-12); NEUTROPHILS % (AUTO) 70 % (42-75); PLATELET COUNT 205 10^3/uL (130-400); WHITE BLOOD COUNT 4.3 10^3/uL (4.3-11.0)
[2018-06-04 11:00] LABS: BUN/CREATININE RATIO 28; CALCIUM 9.9 MG/DL (8.5-10.1); CARBON DIOXIDE 30 MMOL/L (21-32); CHLORIDE 104 MMOL/L (98-107); CREATININE SERUM 0.76 MG/DL (0.60-1.30); GFR ESTIMATED > 60; GLUCOSE 272 MG/DL (70-105); POTASSIUM 4.8 MMOL/L (3.6-5.0); SODIUM 143 MMOL/L (135-145)
[2018-06-20 13:01] LABS: BASOPHILS % (AUTO) 1 % (0-10); EOSINOPHILS % (AUTO) 1 % (0-10); HEMATOCRIT 33 % (35-52); HEMOGLOBIN 9.9 G/DL (11.5-16.0); LYMPHOCYTES # (AUTO) 0.6 X 10^3 (1.0-4.0); LYMPHOCYTES % (AUTO) 19 % (12-44); MEAN CORPUSCULAR HEMOGLOBIN 29 PG (25-34); MEAN CORPUSCULAR HGB CONC 30 G/DL (32-36); MEAN CORPUSCULAR VOLUME 97 FL (80-99); MONOCYTES # (AUTO) 0.5 X 10^3 (0.0-1.0); MONOCYTES % (AUTO) 14 % (0-12); NEUTROPHILS # (AUTO) 2.1 X 10^3 (1.8-7.8); NEUTROPHILS % (AUTO) 66 % (42-75); PLATELET COUNT 110 10^3/uL (130-400); RED CELL DISTRIBUTION WIDTH 16.6 % (10.0-14.5); WHITE BLOOD COUNT 3.2 10^3/uL (4.3-11.0)
[2018-06-20 13:16] LABS: ALANINE AMINOTRANSFERASE 15 U/L (0-55); ALBUMIN 3.7 GM/DL (3.2-4.5); ALKALINE PHOSPHATASE 79 U/L (40-136); BILIRUBIN,TOTAL 0.5 MG/DL (0.1-1.0); BUN/CREATININE RATIO 22; CALCIUM 9.6 MG/DL (8.5-10.1); CARBON DIOXIDE 27 MMOL/L (21-32); CHLORIDE 103 MMOL/L (98-107); CREATININE SERUM 0.68 MG/DL (0.60-1.30); GFR ESTIMATED > 60; GLUCOSE 226 MG/DL (70-105); POTASSIUM 3.6 MMOL/L (3.6-5.0); SODIUM 143 MMOL/L (135-145); TOTAL PROTEIN 7.1 GM/DL (6.4-8.2)
[2018-07-02 10:00] LABS: BASOPHILS % (AUTO) 1 % (0-10); EOSINOPHILS % (AUTO) 1 % (0-10); HEMATOCRIT 34 % (35-52); HEMOGLOBIN 10.2 G/DL (11.5-16.0); LYMPHOCYTES # (AUTO) 0.4 X 10^3 (1.0-4.0); LYMPHOCYTES % (AUTO) 7 % (12-44); MEAN CORPUSCULAR HEMOGLOBIN 29 PG (25-34); MEAN CORPUSCULAR HGB CONC 30 G/DL (32-36); MEAN CORPUSCULAR VOLUME 96 FL (80-99); MEAN PLATELET VOLUME 10.3 FL (7.4-10.4); MONOCYTES # (AUTO) 0.7 X 10^3 (0.0-1.0); MONOCYTES % (AUTO) 11 % (0-12); NEUTROPHILS # (AUTO) 5.3 X 10^3 (1.8-7.8); NEUTROPHILS % (AUTO) 82 % (42-75); PLATELET COUNT 163 10^3/uL (130-400); RED CELL DISTRIBUTION WIDTH 16.5 % (10.0-14.5); WHITE BLOOD COUNT 6.5 10^3/uL (4.3-11.0)
[2018-07-02 10:19] LABS: ALANINE AMINOTRANSFERASE 19 U/L (0-55); ALBUMIN 3.6 GM/DL (3.2-4.5); ALKALINE PHOSPHATASE 78 U/L (40-136); BILIRUBIN,TOTAL 0.5 MG/DL (0.1-1.0); BUN/CREATININE RATIO 23; CALCIUM 9.5 MG/DL (8.5-10.1); CARBON DIOXIDE 27 MMOL/L (21-32); CHLORIDE 102 MMOL/L (98-107); CREATININE SERUM 0.71 MG/DL (0.60-1.30); GFR ESTIMATED > 60; GLUCOSE 341 MG/DL (70-105); POTASSIUM 3.9 MMOL/L (3.6-5.0); SODIUM 139 MMOL/L (135-145); TOTAL PROTEIN 6.8 GM/DL (6.4-8.2)
[2018-07-09 09:09] LABS: BASOPHILS % (AUTO) 0 % (0-10); EOSINOPHILS % (AUTO) 1 % (0-10); HEMATOCRIT 32 % (35-52); HEMOGLOBIN 9.9 G/DL (11.5-16.0); LYMPHOCYTES # (AUTO) 0.4 X 10^3 (1.0-4.0); LYMPHOCYTES % (AUTO) 11 % (12-44); MEAN CORPUSCULAR HEMOGLOBIN 29 PG (25-34); MEAN CORPUSCULAR HGB CONC 31 G/DL (32-36); MEAN CORPUSCULAR VOLUME 94 FL (80-99); MEAN PLATELET VOLUME 11.5 FL (7.4-10.4); MONOCYTES # (AUTO) 0.3 X 10^3 (0.0-1.0); MONOCYTES % (AUTO) 8 % (0-12); NEUTROPHILS % (AUTO) 79 % (42-75); PLATELET COUNT 170 10^3/uL (130-400); RED CELL DISTRIBUTION WIDTH 16.5 % (10.0-14.5); WHITE BLOOD COUNT 3.7 10^3/uL (4.3-11.0)
[2018-07-09 09:24] LABS: BUN/CREATININE RATIO 17; CALCIUM 9.2 MG/DL (8.5-10.1); CARBON DIOXIDE 24 MMOL/L (21-32); CHLORIDE 103 MMOL/L (98-107); CREATININE SERUM 0.66 MG/DL (0.60-1.30); GFR ESTIMATED > 60; GLUCOSE 285 MG/DL (70-105); POTASSIUM 3.9 MMOL/L (3.6-5.0); SODIUM 139 MMOL/L (135-145)
[2018-07-16 08:37] LABS: BASOPHILS % (AUTO) 0 % (0-10); EOSINOPHILS % (AUTO) 2 % (0-10); HEMATOCRIT 31 % (35-52); HEMOGLOBIN 9.3 G/DL (11.5-16.0); LYMPHOCYTES # (AUTO) 0.5 X 10^3 (1.0-4.0); LYMPHOCYTES % (AUTO) 17 % (12-44); MEAN CORPUSCULAR HEMOGLOBIN 28 PG (25-34); MEAN CORPUSCULAR HGB CONC 30 G/DL (32-36); MEAN CORPUSCULAR VOLUME 95 FL (80-99); MEAN PLATELET VOLUME 10.2 FL (7.4-10.4); MONOCYTES # (AUTO) 0.3 X 10^3 (0.0-1.0); MONOCYTES % (AUTO) 10 % (0-12); NEUTROPHILS % (AUTO) 72 % (42-75); PLATELET COUNT 138 10^3/uL (130-400); RED CELL DISTRIBUTION WIDTH 16.6 % (10.0-14.5); WHITE BLOOD COUNT 2.7 10^3/uL (4.3-11.0)
[2018-07-16 08:54] LABS: BUN/CREATININE RATIO 21; CALCIUM 9.4 MG/DL (8.5-10.1); CARBON DIOXIDE 27 MMOL/L (21-32); CHLORIDE 105 MMOL/L (98-107); GFR ESTIMATED > 60; GLUCOSE 301 MG/DL (70-105); SODIUM 139 MMOL/L (135-145)
[2018-07-30 09:17] LABS: BASOPHILS % (AUTO) 0 % (0-10); EOSINOPHILS % (AUTO) 1 % (0-10); HEMATOCRIT 33 % (35-52); HEMOGLOBIN 10.1 G/DL (11.5-16.0); LYMPHOCYTES # (AUTO) 0.5 X 10^3 (1.0-4.0); LYMPHOCYTES % (AUTO) 10 % (12-44); MEAN CORPUSCULAR HEMOGLOBIN 28 PG (25-34); MEAN CORPUSCULAR HGB CONC 30 G/DL (32-36); MEAN CORPUSCULAR VOLUME 91 FL (80-99); MEAN PLATELET VOLUME 11.1 FL (7.4-10.4); MONOCYTES # (AUTO) 0.6 X 10^3 (0.0-1.0); MONOCYTES % (AUTO) 12 % (0-12); NEUTROPHILS # (AUTO) 3.8 X 10^3 (1.8-7.8); NEUTROPHILS % (AUTO) 77 % (42-75); PLATELET COUNT 182 10^3/uL (130-400); RED CELL DISTRIBUTION WIDTH 16.8 % (10.0-14.5); WHITE BLOOD COUNT 4.9 10^3/uL (4.3-11.0)
[2018-07-30 09:36] LABS: ALANINE AMINOTRANSFERASE 13 U/L (0-55); ALBUMIN 3.6 GM/DL (3.2-4.5); ALKALINE PHOSPHATASE 109 U/L (40-136); BILIRUBIN,TOTAL 0.4 MG/DL (0.1-1.0); BUN/CREATININE RATIO 17; CALCIUM 9.6 MG/DL (8.5-10.1); CARBON DIOXIDE 30 MMOL/L (21-32); CHLORIDE 100 MMOL/L (98-107); CREATININE SERUM 0.69 MG/DL (0.60-1.30); GFR ESTIMATED > 60; GLUCOSE 281 MG/DL (70-105); POTASSIUM 3.6 MMOL/L (3.6-5.0); SODIUM 140 MMOL/L (135-145); TOTAL PROTEIN 6.7 GM/DL (6.4-8.2)
[2018-08-06 09:11] LABS: BASOPHILS % (AUTO) 0 % (0-10); EOSINOPHILS % (AUTO) 1 % (0-10); HEMATOCRIT 33 % (35-52); HEMOGLOBIN 9.8 G/DL (11.5-16.0); LYMPHOCYTES # (AUTO) 0.5 X 10^3 (1.0-4.0); LYMPHOCYTES % (AUTO) 11 % (12-44); MEAN CORPUSCULAR HEMOGLOBIN 28 PG (25-34); MEAN CORPUSCULAR HGB CONC 30 G/DL (32-36); MEAN CORPUSCULAR VOLUME 91 FL (80-99); MONOCYTES # (AUTO) 0.5 X 10^3 (0.0-1.0); MONOCYTES % (AUTO) 10 % (0-12); NEUTROPHILS # (AUTO) 3.8 X 10^3 (1.8-7.8); NEUTROPHILS % (AUTO) 78 % (42-75); PLATELET COUNT 182 10^3/uL (130-400); RED CELL DISTRIBUTION WIDTH 17.6 % (10.0-14.5); WHITE BLOOD COUNT 4.8 10^3/uL (4.3-11.0)
[2018-08-06 09:28] LABS: BUN/CREATININE RATIO 19; CALCIUM 9.2 MG/DL (8.5-10.1); CARBON DIOXIDE 28 MMOL/L (21-32); CHLORIDE 100 MMOL/L (98-107); CREATININE SERUM 0.62 MG/DL (0.60-1.30); GFR ESTIMATED > 60; GLUCOSE 273 MG/DL (70-105); SODIUM 138 MMOL/L (135-145)
[2018-08-13 09:13] LABS: BASOPHILS % (AUTO) 0 % (0-10); EOSINOPHILS % (AUTO) 1 % (0-10); HEMATOCRIT 31 % (35-52); HEMOGLOBIN 9.4 G/DL (11.5-16.0); LYMPHOCYTES # (AUTO) 0.5 X 10^3 (1.0-4.0); LYMPHOCYTES % (AUTO) 16 % (12-44); MEAN CORPUSCULAR HEMOGLOBIN 28 PG (25-34); MEAN CORPUSCULAR HGB CONC 30 G/DL (32-36); MEAN CORPUSCULAR VOLUME 92 FL (80-99); MEAN PLATELET VOLUME 11.4 FL (7.4-10.4); MONOCYTES # (AUTO) 0.3 X 10^3 (0.0-1.0); MONOCYTES % (AUTO) 12 % (0-12); NEUTROPHILS % (AUTO) 72 % (42-75); PLATELET COUNT 156 10^3/uL (130-400); RED CELL DISTRIBUTION WIDTH 17.9 % (10.0-14.5); WHITE BLOOD COUNT 2.9 10^3/uL (4.3-11.0)
[2018-08-13 09:27] LABS: BUN/CREATININE RATIO 22; CALCIUM 9.3 MG/DL (8.5-10.1); CARBON DIOXIDE 29 MMOL/L (21-32); CHLORIDE 104 MMOL/L (98-107); CREATININE SERUM 0.64 MG/DL (0.60-1.30); GFR ESTIMATED > 60; GLUCOSE 285 MG/DL (70-105); POTASSIUM 3.7 MMOL/L (3.6-5.0); SODIUM 141 MMOL/L (135-145)
[~2018-08-27] VITALS: Ht 157.5 cm; Wt 76.7 kg
[~2018-08-27 09:00] MED LIST changes: +NS IV 1000 ML (CANCER CTR) IV SCH; +ONDANSETRON 4 MG (ZOFRAN) ORAL DISSOLVE TAB PO ONE; +ONDANSETRON MDV (CANCER CENTER 16 MG, DEXAMETHASONE INJECTION 10 MG in NS (IVPB) CANCER... IV SCH; +PACLitaxel PROTEIN 160 MG in EMPTY IV BAG (PVC) CANCER CTR 1 EA IV SCH
[2018-08-27 09:41] LABS: BASOPHILS % (AUTO) 0 % (0-10); EOSINOPHILS % (AUTO) 1 % (0-10); HEMATOCRIT 31 % (35-52); HEMOGLOBIN 9.4 G/DL (11.5-16.0); LYMPHOCYTES # (AUTO) 0.5 X 10^3 (1.0-4.0); LYMPHOCYTES % (AUTO) 9 % (12-44); MEAN CORPUSCULAR HEMOGLOBIN 27 PG (25-34); MEAN CORPUSCULAR HGB CONC 30 G/DL (32-36); MEAN CORPUSCULAR VOLUME 90 FL (80-99); MEAN PLATELET VOLUME 10.8 FL (7.4-10.4); MONOCYTES # (AUTO) 0.7 X 10^3 (0.0-1.0); MONOCYTES % (AUTO) 14 % (0-12); NEUTROPHILS # (AUTO) 4.2 X 10^3 (1.8-7.8); NEUTROPHILS % (AUTO) 76 % (42-75); PLATELET COUNT 176 10^3/uL (130-400); RED CELL DISTRIBUTION WIDTH 18.2 % (10.0-14.5); WHITE BLOOD COUNT 5.5 10^3/uL (4.3-11.0)
[2018-08-27 10:04] LABS: ALANINE AMINOTRANSFERASE 12 U/L (0-55); ALBUMIN 3.3 GM/DL (3.2-4.5); ALKALINE PHOSPHATASE 95 U/L (40-136); BILIRUBIN,TOTAL 0.5 MG/DL (0.1-1.0); BUN/CREATININE RATIO 24; CALCIUM 9.3 MG/DL (8.5-10.1); CARBON DIOXIDE 27 MMOL/L (21-32); CHLORIDE 101 MMOL/L (98-107); CREATININE SERUM 0.66 MG/DL (0.60-1.30); GFR ESTIMATED > 60; GLUCOSE 299 MG/DL (70-105); POTASSIUM 3.7 MMOL/L (3.6-5.0); SODIUM 140 MMOL/L (135-145); TOTAL PROTEIN 6.3 GM/DL (6.4-8.2)
[2018-08-27] MEDS ORDERED: PACLitaxel PROTEIN 150 MG in EMPTY IV BAG (PVC) CANCER CTR 1 EA IV SCH (10:15)
== END 2018-09-02 | disposition home or self-care (01) ==
LOC: ONC 09:00
PROVIDERS: ATTEND Internal Medicine Hematology & Oncology
DX: Z51.0 Encounter for antineoplastic radiation therapy (principal); Z51.11 Encounter for antineoplastic chemotherapy; C50.211 Malignant neoplasm of upper-inner quadrant of right female breast; J91.0 Malignant pleural effusion; E11.9 Type 2 diabetes mellitus without complications; I10 Essential (primary) hypertension; E78.00 Pure hypercholesterolemia, unspecified; E03.9 Hypothyroidism, unspecified; K21.9 Gastro-esophageal reflux disease without esophagitis; F41.9 Anxiety disorder, unspecified; I89.0 Lymphedema, not elsewhere classified; Z17.0 Estrogen receptor positive status [ER+]; Z79.811 Long term (current) use of aromatase inhibitors; Z79.82 Long term (current) use of aspirin; Z79.84 Long term (current) use of oral hypoglycemic drugs; Z79.899 Other long term (current) drug therapy
CPT/HCPCS: 36415; 36591; 77290; 77295; 77300; 77334; 77336; 77402; 77417; 77470; 80048; 80053; 82306; 85025; 86300; 96375; 96413; 99204; 99213

== ENCOUNTER → 2018-08-27 | Outpatient (CLI) | payer MEDICARE, MEDICAID ==
[~2018-08-27] MED LIST changes: -EZET10TA27 PO; +EZET10TA49 PO
--- NOTE | 2018-08-27 13:09 | Diagnostic Imaging Report ---
INDICATION: Right breast cancer, pleural effusion. TECHNIQUE: Two view chest 9:22 AM CORRELATION STUDY: 06/13/2018 FINDINGS: Right IJ Jihvmo-y-Pbvr catheter is unchanged. Heart size enlarged. Vascular is slightly prominent, generally stable. Scattered pulmonary parenchymal densities are present. More prominent, what appears be pleural-based mass lateral left mid lung field does appear to be slightly smaller. There is presence of bilateral pleural effusions versus pleural thickening. Stable on the left and new and/or increased on the right. Multiple Surgiclips over the right chest and axilla. Slight eccentric thoracic kyphotic curvature. Slight loss of height into the wedged lower thoracic vertebral bodies. IMPRESSION: 1. Cardiac enlargement and borderline vasculature persisting stable to slightly improved. 2. Scattered pulmonary parenchymal densities do persist left greater than right. More pleural-based mass lateral left chest slightly smaller. 2. Unchanged pleural effusion versus pleural thickening left lung base with developed small right pleural effusion. Dictated by: Dictated on workstation # [id number]
== END ==
LOC: RAD 08:51
PROVIDERS: ATTEND Nurse Practitioner Adult Health
DX: C50.211 Malignant neoplasm of upper-inner quadrant of right female breast (principal); J91.0 Malignant pleural effusion; I51.7 Cardiomegaly; J98.4 Other disorders of lung; Z95.828 Presence of other vascular implants and grafts
CPT/HCPCS: 71046

== ENCOUNTER → 2018-10-02 | Outpatient (CLI) | payer MEDICARE, MEDICAID ==
[~2018-10-02] MED LIST changes: +HOLD METFORMIN - RECEIVED CONTRAST 20 ML VIAL IV SCH; +IOHEXOL 350 MG/ML 100 ML (OMNIPAQUE 350) VIAL IV ONE; +NS 100 ML (IVPB) BAG IV ONE; -NS IV 1000 ML (CANCER CTR) IV SCH; +OMEP20CA13 PO; -ONDANSETRON 4 MG (ZOFRAN) ORAL DISSOLVE TAB PO ONE; -ONDANSETRON MDV (CANCER CENTER 16 MG, DEXAMETHASONE INJECTION 10 MG in NS (IVPB) CANCER... IV SCH; -PACLitaxel PROTEIN 160 MG in EMPTY IV BAG (PVC) CANCER CTR 1 EA IV SCH
--- NOTE | 2018-10-02 13:48 | Diagnostic Imaging Report ---
PROCEDURE: CT head with and without contrast. TECHNIQUE: Multiple contiguous axial images were obtained through the brain before and after the administration of intravenous contrast. Auto Exposure Controls were utilized during the CT exam to meet ALARA standards for radiation dose reduction. INDICATION: Right breast carcinoma. COMPARISON: Correlation is made with prior head CT from 05/30/2018. FINDINGS: Ventricular size and sulcal pattern are stable. Area of low density in the deep white matter right centrum semiovale appears similar to prior study. No sulcal effacement or midline shift is detected. No acute intra-axial or extra-axial hemorrhage is detected. Postcontrast portion of the study is without abnormal enhancing lesion. Cisterns are patent. The visualized paranasal sinuses are clear. Calvarium is unremarkable. IMPRESSION: Stable pre- and postcontrast CT of the brain when compared with examination from 05/30/2018. No definite findings to suggest intracranial metastatic disease are identified. Dictated by: Dictated on workstation # [id number]
== END ==
LOC: RAD 13:00
PROVIDERS: ATTEND Nurse Practitioner Adult Health
DX: C50.911 Malignant neoplasm of unspecified site of right female breast (principal); R41.82 Altered mental status, unspecified
CPT/HCPCS: 70470

== ENCOUNTER → 2018-10-02 | Outpatient (CLI) | payer MEDICARE, MEDICAID ==
[~2018-10-02] MED LIST changes: -HOLD METFORMIN - RECEIVED CONTRAST 20 ML VIAL IV SCH; -IOHEXOL 350 MG/ML 100 ML (OMNIPAQUE 350) VIAL IV ONE; -NS 100 ML (IVPB) BAG IV ONE
--- NOTE | 2018-10-02 15:24 | Diagnostic Imaging Report ---
INDICATION: History of malignant pleural effusion. FINDINGS: Sonographic interrogation over the left and right chest was performed. There appears to be a large right pleural effusion with overall volume of approximately 414 mL. Small amount of left pleural fluid is seen. IMPRESSION: Bilateral pleural effusions, right greater. Dictated by: Dictated on workstation # [id number]
== END ==
LOC: RAD 13:02
PROVIDERS: ATTEND Family Medicine
DX: J91.0 Malignant pleural effusion (principal)
CPT/HCPCS: 76604

== ENCOUNTER → 2018-10-16 | Outpatient (CLI) | payer MEDICARE, MEDICAID ==
--- NOTE | 2018-10-16 18:40 | Diagnostic Imaging Report ---
INDICATION: Malignant pleural effusion. COMPARISON: Exam compared with study 10/02/2018. FINDINGS: Right pleural fluid with complexity and internal debris has an estimated volume 277 mL today, decreased from prior when the estimated volume was 414 mL. Smaller left sided pleural effusion shows similar reduction. IMPRESSION: Right greater than left complex pleural effusion showed interval reduction from prior. Dictated by: Dictated on workstation # [id number]
== END ==
LOC: RAD 12:01
PROVIDERS: ATTEND Family Medicine
DX: J91.0 Malignant pleural effusion (principal)
CPT/HCPCS: 76604

== ENCOUNTER → 2018-10-17 | Outpatient (CLI) | payer MEDICARE, MEDICAID ==
[~2018-10-17] MED LIST changes: +ALBU2.5V4 NEB; +BARIUM SUSPENSION 2.1% (VANILLA SILQ) 450 ML PO ONE; +HOLD METFORMIN - RECEIVED CONTRAST 20 ML VIAL IV SCH; +IOHEXOL 350 MG/ML 100 ML (OMNIPAQUE 350) VIAL IV ONE; +LIRA0.6P3 SC; +MAGIC MOUTHWASH MM; +METF500T8 PO; +MORP-33 PO; +NS 100 ML (IVPB) BAG IV ONE; +NYST15PO2 TOP
[2018-10-17] MEDS: CATHETER FLUSH 10 ML SYR IV PRN ×2 (11:22→12:06)
--- NOTE | 2018-10-17 12:35 | Diagnostic Imaging Report ---
PROCEDURE: CT chest, abdomen, and pelvis with contrast. TECHNIQUE: Multiple contiguous axial images were obtained through the chest, abdomen, and pelvis after the administration of intravenous contrast. Auto Exposure Controls were utilized during the CT exam to meet ALARA standards for radiation dose reduction. INDICATION: Breast cancer, elevated tumor markers. FINDINGS: The previous CT chest, abdomen, and pelvis exam of 05/30/2018 noted a mass-like infiltrate in the right middle lobe measuring 1.4 x 2.1 cm. That finding has diminished since the previous exam and now measures 1.0 x 1.5 cm. However, in the interval since the prior study, a small 0.5 x 1.2 cm pleural-based nodular density has developed along the periphery of the right upper lobe. Whether this is secondary to a small collection of fluid or to a mass is not certain. No other parenchymal lung mass is identified. However, in the interval since the prior study, diffuse alveolar/interstitial pulmonary infiltrates have developed in the left perihilar region and left lower lobe and to a lesser extent the left upper lobe. There is also now a small amount of fluid present in the left lung base. The loculated effusions in the left lower lobe seen previously are no longer evident. There has been an increase in the atelectasis/infiltrate and fluid in the right lung base as well. The right pleural effusion now measures 4.3 cm as opposed to 1.5 cm on the prior exam. The heart is mildly enlarged but stable. The coronary artery calcifications seen previously are again evident. The aorta is not abnormally dilated, and there is no sign of a dissection. The pulmonary arteries were not well opacified and consequently difficult to assess for a pulmonary embolus. There is no clear defect to suggest a pulmonary embolus. There is no mediastinal or hilar adenopathy. The thyroid gland where visualized is unremarkable. The extensive postsurgical changes involving the right breast and the skin thickening of the right breast seen previously are again evident and no different. There also appears to be thickening of the left breast skin. This finding is unchanged when compared to the prior exam. The images through the abdomen reveal that the 2.3 x 2.6 cm low-density left adrenal mass seen on the prior exam does measure larger on this study. The adrenal mass is now estimated to be 2.6 x 3.0 cm. The increase in size of the adrenal mass is worrisome for malignancy. The right adrenal gland is unremarkable. The 0.9 CM rounded area of low density in the left lobe of the liver seen previously does not appear to have changed significantly. The liver is otherwise unremarkable. The spleen, pancreas, kidneys, aorta, and inferior vena cava are unremarkable for an acute abnormality. As noted on the prior exam, the gallbladder is surgically absent. The stomach is partially filled with oral contrast and consequently difficult to assess. There are numerous diverticula involving the sigmoid and descending colon, but there is no sign of acute diverticulitis. The appendix was not well visualized, and there are surgical clips in the right mid abdomen. Correlation with patient's surgical history would be recommended. There is no pelvic mass or free fluid collection noted. The urinary bladder is grossly unremarkable. The uterus is surgically absent. The bone windows show that in the interval since the prior study a 1.0 x 1.3 cm sclerotic focus has developed along the left lateral aspect of the vertebral body of L5. Also, a 20-30% compression fracture of the posterior half of the superior endplate of L4 has developed in the interval since the prior study. I am concerned that this is pathologic in nature. Furthermore, mild (10-20%) compression deformities of the superior endplates of T10, L1 and L1 have developed in the interval since the prior study. These are most likely pathologic in nature as well. There is no evidence for spinal cord indentation by the neoplastic process. There is also mixed density in the left pelvis, and this too may be related to metastatic disease. IMPRESSION: 1. The left adrenal mass noted on the previous study has increased in size. 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 The MRI of the lumbar spine and thoracic spine exams of 05/31/2018 did indicate extensive skeletal metastatic disease. Mild pathologic compression fractures of T10, L1, and L4 are also suggested. These injuries appear to be subacute in nature. If further evaluation is desired, then MRI would be recommended. 2. The appearance of the chest has worsened since the prior study as there is greater involvement of both lungs by pneumonia/atelectasis. There is also now a moderate right pleural effusion and small left pleural effusion. 3. These results were discussed with Dr. Hilario. Dictated by: Dictated on workstation # [id number]
--- NOTE | 2018-10-17 19:05 | Diagnostic Imaging Report ---
EXAMINATION: Nuclear medicine bone scan. INDICATION: Breast cancer. TECHNIQUE: This study was performed following administration of 27.0 mCi of 99m technetium MDP. Anterior and posterior whole body images and spot lateral films of the calvarium and spine were obtained three hours after injection of the radiotracer. FINDINGS: The previous nuclear medicine bone scan of 05/30/2018 noted increased activity in the T11 and L3 vertebral bodies. These findings were felt to be suspicious for compression fractures. The subsequent MRI thoracic and lumbar spine exams performed on 05/31/2018 showed osseous metastatic disease throughout the axial skeleton. There was a chronic compression deformity of T12 and an acute or subacute fracture of L3. On this exam, there are new areas of slightly increased activity involving the superior endplate of L4, T12, and T10. There are also several new foci of abnormal uptake in the proximal right 9th and 11th ribs and in the proximal left 7th and 8th ribs. In addition, there is generalized increased activity in the left sacrum. There also appears to be a new area of increased activity in the humeral head on the left. These findings do suggest progressive metastatic disease and would be consistent with findings of the CT chest, abdomen, and pelvis exam performed earlier today. As noted on the prior exam, there is severe degenerative disease involving both knee joints and to a lesser extent both shoulder joints. Both kidneys do show excretion of the radiotracer. IMPRESSION: The appearance of the bone scan has worsened since the prior study as new areas of abnormal uptake have developed in the thoracic and lumbar spine, the ribs, the left humerus and the left pelvis. 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 Dictated by: Dictated on workstation # [id number]
== END ==
LOC: CARD 10:09
PROVIDERS: ATTEND Nurse Practitioner Adult Health
DX: Z01.89 Encounter for other specified special examinations (principal); G95.9 Disease of spinal cord, unspecified; M89.9 Disorder of bone, unspecified; J90 Pleural effusion, not elsewhere classified; E27.8 Other specified disorders of adrenal gland; C50.919 Malignant neoplasm of unspecified site of unspecified female breast; R97.8 Other abnormal tumor markers
CPT/HCPCS: 71260; 74177; 78306

== ENCOUNTER 2018-10-21 18:52 | Inpatient (IN) | payer MEDICARE, MEDICAID ==
[~2018-10-21] VITALS: Ht 154.9 cm; Wt 73.5 kg
[~2018-10-21 18:52] MED LIST changes: -BARIUM SUSPENSION 2.1% (VANILLA SILQ) 450 ML PO ONE; -HOLD METFORMIN - RECEIVED CONTRAST 20 ML VIAL IV SCH; -IOHEXOL 350 MG/ML 100 ML (OMNIPAQUE 350) VIAL IV ONE; -LIRA0.6P3 SC; -MAGIC MOUTHWASH MM; -METF500T8 PO; -MORP-33 PO; -NS 100 ML (IVPB) BAG IV ONE; -NYST15PO2 TOP
[2018-10-21 19:24] LABS: BILIRUBIN,URINE NEGATIVE (NEGATIVE); CLARITY,URINE SLIGHTLY CLOUDY; COLOR,URINE YELLOW; GLUCOSE, URINE (UA) 4+ (NEGATIVE); KETONES,URINE 4+ (NEGATIVE); LEUKOCYTE ESTERASE ,URINE NEGATIVE (NEGATIVE); NITRITE,URINE NEGATIVE (NEGATIVE); PH,URINE 6 (5-9); PROTEIN,URINE 2+ (NEGATIVE); UROBILINOGEN,URINE NORMAL (NORMAL)
[2018-10-21] MEDS ORDERED: IBUPROFEN 800 MG (MOTRIN) TAB PO ONE (19:30)
[2018-10-21 19:33] LABS: BACTERIA,URINE TRACE /HPF; RBC,URINE RARE /HPF; WBC,URINE 0-2 /HPF
[2018-10-21 19:49] LABS: BASOPHILS % (AUTO) 0 % (0-10); EOSINOPHILS % (AUTO) 0 % (0-10); HEMATOCRIT 33 % (35-52); HEMOGLOBIN 9.6 G/DL (11.5-16.0); LYMPHOCYTES # (AUTO) 0.3 X 10^3 (1.0-4.0); LYMPHOCYTES % (AUTO) 2 % (12-44); MEAN CORPUSCULAR HEMOGLOBIN 26 PG (25-34); MEAN CORPUSCULAR HGB CONC 29 G/DL (32-36); MEAN CORPUSCULAR VOLUME 87 FL (80-99); MEAN PLATELET VOLUME 11.1 FL (7.4-10.4); MONOCYTES % (AUTO) 6 % (0-12); NEUTROPHILS # (AUTO) 15.4 X 10^3 (1.8-7.8); NEUTROPHILS % (AUTO) 92 % (42-75); PLATELET COUNT 126 10^3/uL (130-400); RED CELL DISTRIBUTION WIDTH 18.8 % (10.0-14.5); WHITE BLOOD COUNT 16.7 10^3/uL (4.3-11.0)
--- NOTE | 2018-10-21 19:58 | ED General ---
General Chief Complaint: Altered Mental Status Stated Complaint: CONFUSION Source of Information: Patient Exam Limitations: No Limitations History of Present Illness Date Seen by Provider: Oct 21, 2018 Time Seen by Provider: 19:55 Initial Comments To ER by caregiver with reports of altered mental status earlier today. She seemed delirious, didn't know where she was at near was. At this time she is back to normal as far as mentation goes. However she's had a fever today up to 101. She wears oxygen at 3 L [id number], caregiver states that she typically runs upwards of 95% but today has been as low as 88%. Patient has breast cancer, undergoing chemotherapy with Dr. Hilario. Patient's caregiver states that she's had a general decline in health for about the past month. When asked if she wants to be resuscitated or intubated should the need arise patient states "no, just let me go". Additionally, she had a chest abdomen pelvis CT scan on 10/19/18 which showed an increase in the size of the left adrenal mass, numerous new lytic and blastic lesions in the spine and left pelvis, moderate bilateral pleural effusions. Timing/Duration: 1-2 Days Severity: Moderate Associated Systoms: Cough, Weakness Allergies and Home Medications Allergies Coded Allergies: latex (Verified Allergy, Unknown, 01/31/17) Home Medications Albuterol Sulfate 2.5 Mg/3 Ml Vial.neb, 2.5 MG IH Q4H PRN for SHORTNESS OF BREATH, (Reported) Aspirin 81 Mg Tablet.dr, 81 MG PO 1700, (Reported) Cholecalciferol (Vitamin D3) 2,000 Unit Tablet, 2,000 UNIT PO 1200, (Reported) Dicyclomine HCl 10 Mg Capsule, 10 MG PO QID, (Reported) Diphenoxylate HCl/Atropine 1 Each Tablet, 1-2 EACH PO QID PRN for DIARRHEA, (Reported) do not exceed 8 per day Gabapentin 300 Mg Capsule, 300 MG PO TID, (Reported) Glipizide 10 Mg Tablet, 10 MG PO BID, (Reported) Hydrocodone/Acetaminophen 1 Each Tablet, 1 TAB PO Q4H PRN for PAIN-MILD, (Reported) Letrozole 2.5 Mg Tablet, 2.5 MG PO DAILY, (Reported) Levothyroxine Sodium 125 Mcg Tablet, 125 MCG PO DAILY, (Reported) Liraglutide 0.6 Mg/0.1 Ml Pen.injctr, 1.8 MG SQ HS, (Reported) Magnesium Oxide 400 Mg Tablet, 400 MG PO BID, (Reported) Metformin HCl 750 Mg Tab.er.24h, 750 MG PO BID, (Reported) Mirabegron 50 Mg Tab.er.24h, 50 MG PO DAILY@1200, (Reported) Montelukast Sodium 10 Mg Tablet, 10 MG PO HS, (Reported) Omeprazole 40 Mg Capsule.dr, 40 MG PO BID, (Reported) Palbociclib 125 Mg Capsule, 125 MG PO TAKE 21 DAYS OFF 7, (Reported) Sertraline HCl 25 Mg Tablet, 25 MG PO HS, (Reported) Patient Home Medication List Home Medication List Reviewed: Yes Review of Systems Review of Systems Constitutional: see HPI, fever, weakness EENTM: see HPI Respiratory: see HPI, cough Genitourinary: no symptoms reported Musculoskeletal: no symptoms reported Skin: no symptoms reported Psychiatric/Neurological: No Symptoms Reported Hematologic/Lymphatic: No Symptoms Reported Past Vnkwbuu-Ddubxq-Iklnie Hx Patient Social History Type Used: Cigarettes Former Smoker, Quit: Aug 05, 2007 2nd Hand Smoke Exposure: No Recent Foreign Travel: No Contact w/Someone Who Travel: No Recent Hopitalizations: No Immunizations Up To Date Tetanus Booster (TDap): Unknown PED Vaccines UTD: No Date of Pneumonia Vaccine: Jan 26, 2012 Date of Influenza Vaccine: Nov 19, 2014 Seasonal Allergies Seasonal Allergies: Yes Past Medical History Surgeries: Yes (LEfT arm fx, port placed and removed) Breast, Eye Surgery, Gallbladder, 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, Orthopedic, Renal, Thyroidectomy Respiratory: No Cardiac: Yes (CARDIAC CATH 2010; CAROTID DISEASE) Chronic Edema/Swelling, High Cholesterol, Hypertension, Peripheral Vascular Neurological: Yes Neuropathy Reproductive Disorders: No 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, 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 Sexually Transmitted Disease: No HIV/AIDS: No Genitourinary: No Kidney Stones Gastrointestinal: Yes Gastroesophageal Reflux, Diverticulosis, Polyps, Irritable Bowel Musculoskeletal: Yes (LYMPHEDEMA OF RIGHT ARM; BILATERAL ARM FX'S ) Degenerate Disk Disease, Arthritis, Chronic Back Pain, Fractures Endocrine: Yes ( S/P THYROIDECTOMY; OBESITY) Hypothyroidsim, Diabetes, Non-Insulin dep Cataract, Dysphagia Loss of Vision: Bilateral Hearing Impairment: Denies Cancer: Yes (S/P RIGHT LUMPECTOMY & LYMPH NODE DISSECTION 2008) Breast What Type of Treatment Did You: Chemotherapy, Radiation, Surgical Intervention Psychosocial: Yes Sleep Difficulties, Anxiety, Depression Integumentary: Yes Herpes Blood Disorders: No Adverse Reaction/Blood Tranf: No Family Medical History Patient reports no known family medical history. No Pertinent Family Hx Physical Exam Vital Signs Vital Signs - First Documented 10/21/18 19:15 Temp 102.5 Pulse 120 Resp 20 B/P (MAP) 129/63 (85) Pulse Ox 93 O2 Delivery Nasal Cannula O2 Flow Rate 3.00 Capillary Refill : Height, Weight, BMI Height: 5'1.00" Weight: 163lbs. 0.0oz. 73.309127gp; 30.8 BMI Method:Stated General Appearance: No Apparent Distress, WD/WN, Chronically ill, Other (alert and oriented, knows the month, year,where she is and her name. After verifying this, I discussed with her wishes for future care, CODE STATUS. She will be a DO NOT RESUSCITATE status.) Eyes: Bilateral Eye Normal Inspection, Bilateral Eye PERRL, Bilateral Eye EOMI Neck: Full Range of Motion, Normal Inspection Respiratory: No Accessory Muscle Use, No Respiratory Distress, Crackles (bilateral bases) Cardiovascular: Normal Peripheral Pulses, Tachycardia Gastrointestinal: Non Tender, Soft Extremity: Normal Capillary Refill, Normal Inspection Neurologic/Psychiatric: Alert, Oriented x3 Skin: Normal Color, Warm/Dry, Other (there is erythema of each breast around the areola extend up the breast which the caregiver states is new) Focused Exam Lactate Level 10/21/18 19:35: Lactic Acid Level 1.10 Lactic Acid Level Laboratory Tests Test 10/21/18 19:35 Lactic Acid Level 1.10 MMOL/L (0.50-2.00) Progress/Results/Core Measures Suspected Sepsis SIRS Temperature:102.5 Pulse: Respiratory Rate: Laboratory Tests 10/21/18 19:35: White Blood Count 16.7H Blood Pressure / Mean: 10/21/18 19:35: Lactic Acid Level 1.10 Laboratory Tests 10/21/18 19:35: Creatinine 0.71, Platelet Count 126L, Total Bilirubin 1.6H Results/Orders Lab Results Laboratory Tests Test 10/21/18 19:15 10/21/18 19:27 10/21/18 19:35 Range/Units Urine Color YELLOW Urine Clarity SLIGHTLY CLOUDY Urine pH 6 5-9 Urine Specific [place] 1.010 L 1.016-1.022 Urine Protein 2+ H NEGATIVE Urine Glucose (UA) 4+ H NEGATIVE Urine Ketones 4+ H NEGATIVE Urine Nitrite NEGATIVE NEGATIVE Urine Bilirubin NEGATIVE NEGATIVE Urine Urobilinogen NORMAL NORMAL MG/DL Urine Leukocyte Esterase NEGATIVE NEGATIVE Urine RBC (Auto) 1+ H NEGATIVE Urine RBC RARE /HPF Urine WBC 0-2 /HPF Urine Squamous Epithelial Cells 5-10 /HPF Urine Crystals NONE /LPF Urine Bacteria TRACE /HPF Urine Casts NONE /LPF Urine Mucus NEGATIVE /LPF Urine Culture Indicated NO Glucometer 293 H 70-110 MG/DL White Blood Count 16.7 H 4.3-11.0 10^3/uL Red Blood Count 3.77 L 4.35-5.85 10^6/uL Hemoglobin 9.6 L 11.5-16.0 G/DL Hematocrit 33 L 35-52 % Mean Corpuscular Volume 87 80-99 FL Mean Corpuscular Hemoglobin 26 25-34 PG Mean Corpuscular Hemoglobin Concent 29 L 32-36 G/DL Red Cell Distribution Width 18.8 H 10.0-14.5 % Platelet Count 126 L 130-400 10^3/uL Mean Platelet Volume 11.1 H 7.4-10.4 FL Neutrophils (%) (Auto) 92 H 42-75 % Lymphocytes (%) (Auto) 2 L 12-44 % Monocytes (%) (Auto) 6 0-12 % Eosinophils (%) (Auto) 0 0-10 % Basophils (%) (Auto) 0 0-10 % Neutrophils # (Auto) 15.4 H 1.8-7.8 X 10^3 Lymphocytes # (Auto) 0.3 L 1.0-4.0 X 10^3 Monocytes # (Auto) 1.0 0.0-1.0 X 10^3 Eosinophils # (Auto) 0.0 0.0-0.3 10^3/uL Basophils # (Auto) 0.0 0.0-0.1 10^3/uL Neutrophils % (Manual) 78 % Lymphocytes % (Manual) 5 % Monocytes % (Manual) 4 % Eosinophils % (Manual) 0 % Basophils % (Manual) 0 % Band Neutrophils 13 % Polychromasia SLIGHT Hypochromasia SLIGHT Anisocytosis MODERATE Sodium Level 138 135-145 MMOL/L Potassium Level 3.3 L 3.6-5.0 MMOL/L Chloride Level 99 98-107 MMOL/L Carbon Dioxide Level 26 21-32 MMOL/L Anion Gap 13 5-14 MMOL/L Blood Urea Nitrogen 14 7-18 MG/DL Creatinine 0.71 0.60-1.30 MG/DL Estimat Glomerular Filtration Rate > 60 BUN/Creatinine Ratio 20 Glucose Level 314 H 70-105 MG/DL Lactic Acid Level 1.10 0.50-2.00 MMOL/L Calcium Level 9.2 8.5-10.1 MG/DL Corrected Calcium 9.6 8.5-10.1 MG/DL Total Bilirubin 1.6 H 0.1-1.0 MG/DL Aspartate Amino Transf (AST/SGOT) 14 5-34 U/L Alanine Aminotransferase (ALT/SGPT) 10 0-55 U/L Alkaline Phosphatase 93 40-136 U/L Total Protein 6.9 6.4-8.2 GM/DL Albumin 3.5 3.2-4.5 GM/DL My Orders Orders - BRADEN NI APRN Blood Culture (10/21/18 19:28) Lactic Acid Analyzer (10/21/18 19:28) Chest 1 View, Ap/Pa Only (10/21/18 19:28) Ekg Tracing (10/21/18 19:28) Ibuprofen Tablet (Motrin Tablet) (10/21/18 19:30) Medications Given in ED Current Medications Medications Dose Ordered Sig/Kaleb Route Start Time Stop Time Status Last Admin Dose Admin Ibuprofen 800 mg ONCE ONCE PO 10/21/18 19:30 10/21/18 19:31 DC 10/21/18 19:44 800 MG Vital Signs/I&O 10/21/18 10/21/18 10/21/18 10/21/18 19:15 19:44 20:13 20:30 Temp 102.5 102.5 102.5 100.6 Pulse 120 120 117 Resp 20 18 18 B/P (MAP) 129/63 (85) 136/78 129/66 (87) Pulse Ox 93 97 96 O2 Delivery Nasal Cannula Nasal Cannula O2 Flow Rate 3.00 3.00 3.00 Capillary Refill : Diagnostic Imaging Diagonstic Imaging: Xray Plain Films/CT/US/NM/MRI: chest Comments NAME: EVERETT [facility]ÍNEZ [facility] REC#: [id number] PT STATUS: REG ER : 1945 PHYSICIAN: BRADEN NI APRN ADMIT DATE: 10/21/18/ER Draft Date of Exam:10/21/18 CHEST 1 VIEW, AP/PA ONLY INDICATION: Breast cancer. Hypoxic Upright portable chest shows cardiomegaly with normal vascularity. There are bilateral lower lobe infiltrates and small effusions. A Port-A-Cath is present. IMPRESSION: There are bilateral lower lobe infiltrates. There has been slight improved aeration of the left lower lobe since 08/27/2018 study with more opacification of the right lung base since the prior exam. Dictated on workstation # [id number] Dict: 10/21/181953 Trans: 10/21/181958 [facility] [id number] Interpreted by: SHERYL TEE MD Electronically signed by: Departure Impression Primary Impression: Pneumonia Qualified Codes: J18.1 - Lobar pneumonia, unspecified organism Additional Impression: Metastatic breast cancer Disposition: ADMITTED INPATIENT Condition: Stable Admissions Decision to Admit Reason: Admit from ER (General) Decision to Admit/Date: Oct 21, 2018 Time/Decision to Admit Time: 20:38 Departure-Patient Inst. Referrals: JOHNNY GARZON MD (PCP/Family) Primary Care Physician BRADEN NI APRN Oct 21, 2018 19:58
[2018-10-21 20:08] LABS: ALANINE AMINOTRANSFERASE 10 U/L (0-55); ALBUMIN 3.5 GM/DL (3.2-4.5); ALKALINE PHOSPHATASE 93 U/L (40-136); BILIRUBIN,TOTAL 1.6 MG/DL (0.1-1.0); CALCIUM 9.2 MG/DL (8.5-10.1); CARBON DIOXIDE 26 MMOL/L (21-32); GLUCOSE 314 MG/DL (70-105); TOTAL PROTEIN 6.9 GM/DL (6.4-8.2)
[2018-10-21 20:30] VITALS: BP 129/66
[2018-10-21 20:30] LABS: ANISOCYTOSIS MODERATE; BAND NEUTROPHILS 13 %; BASOPHILS % (MANUAL) 0 %; EOSINOPHILS % (MANUAL) 0 %; HYPOCHROMASIA SLIGHT; LYMPHOCYTES % (MANUAL) 5 %; MONOCYTES % (MANUAL) 4 %; NEUTROPHILS % (MANUAL) 78 %; POLYCHROMASIA SLIGHT
[2018-10-21 20:36] LABS: BUN/CREATININE RATIO 20; CHLORIDE 99 MMOL/L (98-107); CREATININE SERUM 0.71 MG/DL (0.60-1.30); GFR ESTIMATED > 60; POTASSIUM 3.3 MMOL/L (3.6-5.0); SODIUM 138 MMOL/L (135-145)
[2018-10-21] MEDS ORDERED: PIPERACILLIN SODIUM/TAZOBACTAM 4.5 GM in NS (IVPB) 100 ML IV ONE (20:45)
[2018-10-21] MEDS ORDERED: ACETAMINOPHEN 325 MG TABLET PO PRN (21:45)
[2018-10-21] MEDS ORDERED: VANCOMYCIN 1500 MG/NS 500 ML IVPB IV ONE ×2 (21:45)
[2018-10-21] MEDS ORDERED: inSUlin ASPART (NovoLOG) 1 UNIT/0.01 ML (CHARGE PER UNIT) ONE (22:44)
[2018-10-21] MEDS ORDERED: VANCOMYCIN 500 MG/VIAL IV ONE (22:54)
[2018-10-21] MEDS ORDERED: NS IV 500 ML 500 ML ONE (22:56)
[2018-10-21] MEDS: LACTATED RINGERS 1,000 ML IV SCH (22:58)
[2018-10-21] MEDS: ONDANSETRON 4 MG/2 ML (SDV) Z0FRAN IV PRN (22:58)
[2018-10-21] MEDS: fentaNYL INJECTION 100 MCG/2 ML AMP IV PRN (22:59)
[2018-10-21] MEDS: ALPRAZolam 0.25 MG (XANAX) TAB PO PRN (23:00)
[2018-10-21] MEDS: IBUPROFEN 600 MG (MOTRIN) TAB PO PRN (23:00)
[2018-10-21] MEDS ORDERED: VANCOMYCIN 1000 MG/VIAL ONE (23:00)
[2018-10-21] MEDS: inSUlin ASPART (NovoLOG) 1 UNIT/0.01 ML (CHARGE PER UNIT) SC SCH (23:02)
[2018-10-21] MEDS ORDERED: RT-ALBUTEROL/IPRATROPIUM 3 ML (DUONEB) VIAL INH PRN (23:15)
[2018-10-22] MEDS: IBUPROFEN 600 MG (MOTRIN) TAB PO PRN ×3 (00:30→17:32)
[2018-10-22] MEDS: PIPERACILLIN/TAZO 4.5 GM/NS 100 ML IV SCH ×6 (03:00→19:19)
[2018-10-22 04:15] VITALS: BP 118/62
[2018-10-22] MEDS ORDERED: NS (IVPB) 100 ML ONE (04:16)
[2018-10-22] MEDS ORDERED: PIPERACILLIN/TAZO 4.5 GM VIAL (ZOSYN) IV ONE (04:16)
[2018-10-22] MEDS: KCL 20 MEQ TAB (K-DUR) PO SCH (05:40)
[2018-10-22 06:37] LABS: BASOPHILS % (AUTO) 0 % (0-10); EOSINOPHILS % (AUTO) 0 % (0-10); HEMATOCRIT 30 % (35-52); HEMOGLOBIN 8.6 G/DL (11.5-16.0); LYMPHOCYTES # (AUTO) 0.3 X 10^3 (1.0-4.0); LYMPHOCYTES % (AUTO) 3 % (12-44); MEAN CORPUSCULAR HEMOGLOBIN 25 PG (25-34); MEAN CORPUSCULAR HGB CONC 29 G/DL (32-36); MEAN CORPUSCULAR VOLUME 87 FL (80-99); MEAN PLATELET VOLUME 10.7 FL (7.4-10.4); MONOCYTES # (AUTO) 0.7 X 10^3 (0.0-1.0); MONOCYTES % (AUTO) 7 % (0-12); NEUTROPHILS # (AUTO) 9.1 X 10^3 (1.8-7.8); NEUTROPHILS % (AUTO) 90 % (42-75); PLATELET COUNT 108 10^3/uL (130-400); RED CELL DISTRIBUTION WIDTH 19.1 % (10.0-14.5); WHITE BLOOD COUNT 10.2 10^3/uL (4.3-11.0)
[2018-10-22 06:57] LABS: ALANINE AMINOTRANSFERASE 8 U/L (0-55); ALBUMIN 3.1 GM/DL (3.2-4.5); ALKALINE PHOSPHATASE 77 U/L (40-136); BILIRUBIN,TOTAL 1.4 MG/DL (0.1-1.0); BUN/CREATININE RATIO 23; CALCIUM 9.1 MG/DL (8.5-10.1); CARBON DIOXIDE 30 MMOL/L (21-32); CHLORIDE 101 MMOL/L (98-107); CREATININE SERUM 0.65 MG/DL (0.60-1.30); GFR ESTIMATED > 60; GLUCOSE 205 MG/DL (70-105); POTASSIUM 3.5 MMOL/L (3.6-5.0); SODIUM 140 MMOL/L (135-145); TOTAL PROTEIN 6.1 GM/DL (6.4-8.2)
[2018-10-22] MEDS: inSUlin ASPART (NovoLOG) 1 UNIT/0.01 ML (CHARGE PER UNIT) SC SCH ×5 (06:57→21:03)
[2018-10-22 08:00] VITALS: BP 120/62
[2018-10-22] MEDS: RT-ALBUTEROL/IPRATROPIUM 3 ML (DUONEB) VIAL INH SCH ×4 (08:01→19:35)
[2018-10-22] MEDS: ONDANSETRON 4 MG/2 ML (SDV) Z0FRAN IV PRN (08:17)
[2018-10-22] MEDS: fentaNYL INJECTION 100 MCG/2 ML AMP IV PRN ×2 (08:17→23:44)
[2018-10-22 12:00] VITALS: BP 119/57
--- NOTE | 2018-10-22 12:00 | History & Physical ---
HPI History of Present Illness: 72 yo female with chills and increased shortness of breath x 2 days at home. She was coughing but states that has stopped. She also notes that she has had cellulitis to both breasts for a couple of days and states she was on antibiotic at home for over 2 weeks from the cancer center. Date seen by provider: Oct 22, 2018 Time Seen by Provider: 11:58 Attending Physician María Carolina MD PCP Khushi Miranda MD Consult Date of Admission Oct 21, 2018 at 20:35 Home Medications Home Medications Reviewed patient Home Medication Reconciliation performed by pharmacy medication reconciliations fuel conversion technician and/or nursing. Patients Allergies have been reviewed. Allergies Coded Allergies: latex (Verified Allergy, Unknown, 01/31/17) MBH-Rotymz-Rcqmck Hx Patient Social History Alcohol Use: Denies Use Recreational Drug Use: No Smoking Status: Former Smoker Former smoker/When Quit: Dec 25, 2006 Type Used: Cigarettes 2nd Hand Smoke Exposure: No Recent Foreign Travel: No Contact w/other who traveled: No Recent Hopitalizations: No Recent Infectious Disease Expo: No Immunizations Up To Date Tetanus Booster (TDap): Unknown Date of Pneumonia Vaccine: Jan 26, 2012 Date of Influenza Vaccine: Nov 19, 2014 Past Medical History Breast cancer, diagnosed 2008, followed by Dr Trinh Recurrent Pleural Effusions DMT2 HTN HLD Hypothyroidism 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 Review of Systems ([facility]) Constitutional: chills Respiratory: see HPI Cardiovascular: No chest pain Gastrointestinal: No abdominal pain, No diarrhea, No vomiting Genitourinary: No dysuria Musculoskeletal: other (right ankle and left neck pain) Skin: No rash Psychiatric/Neurological: No Symptoms Reported Reviewed Test Results Reviewed Test Results Lab Laboratory Tests Test 10/21/18 19:15 10/21/18 19:27 10/21/18 19:35 10/22/18 06:16 Range/Units Urine Color YELLOW Urine Clarity SLIGHTLY CLOUDY Urine pH 6 5-9 Urine Specific [place] 1.010 L 1.016-1.022 Urine Protein 2+ H NEGATIVE Urine Glucose (UA) 4+ H NEGATIVE Urine Ketones 4+ H NEGATIVE Urine Nitrite NEGATIVE NEGATIVE Urine Bilirubin NEGATIVE NEGATIVE Urine Urobilinogen NORMAL NORMAL MG/DL Urine Leukocyte Esterase NEGATIVE NEGATIVE Urine RBC (Auto) 1+ H NEGATIVE Urine RBC RARE /HPF Urine WBC 0-2 /HPF Urine Squamous Epithelial Cells 5-10 /HPF Urine Crystals NONE /LPF Urine Bacteria TRACE /HPF Urine Casts NONE /LPF Urine Mucus NEGATIVE /LPF Urine Culture Indicated NO Glucometer 293 H 70-110 MG/DL White Blood Count 16.7 H 10.2 4.3-11.0 10^3/uL Red Blood Count 3.77 L 3.41 L 4.35-5.85 10^6/uL Hemoglobin 9.6 L 8.6 L 11.5-16.0 G/DL Hematocrit 33 L 30 L 35-52 % Mean Corpuscular Volume 87 87 80-99 FL Mean Corpuscular Hemoglobin 26 25 25-34 PG Mean Corpuscular Hemoglobin Concent 29 L 29 L 32-36 G/DL Red Cell Distribution Width 18.8 H 19.1 H 10.0-14.5 % Platelet Count 126 L 108 L 130-400 10^3/uL Mean Platelet Volume 11.1 H 10.7 H 7.4-10.4 FL Neutrophils (%) (Auto) 92 H 90 H 42-75 % Lymphocytes (%) (Auto) 2 L 3 L 12-44 % Monocytes (%) (Auto) 6 7 0-12 % Eosinophils (%) (Auto) 0 0 0-10 % Basophils (%) (Auto) 0 0 0-10 % Neutrophils # (Auto) 15.4 H 9.1 H 1.8-7.8 X 10^3 Lymphocytes # (Auto) 0.3 L 0.3 L 1.0-4.0 X 10^3 Monocytes # (Auto) 1.0 0.7 0.0-1.0 X 10^3 Eosinophils # (Auto) 0.0 0.0 0.0-0.3 10^3/uL Basophils # (Auto) 0.0 0.0 0.0-0.1 10^3/uL Neutrophils % (Manual) 78 % Lymphocytes % (Manual) 5 % Monocytes % (Manual) 4 % Eosinophils % (Manual) 0 % Basophils % (Manual) 0 % Band Neutrophils 13 % Polychromasia SLIGHT Hypochromasia SLIGHT Anisocytosis MODERATE Sodium Level 138 140 135-145 MMOL/L Potassium Level 3.3 L 3.5 L 3.6-5.0 MMOL/L Chloride Level 99 101 98-107 MMOL/L Carbon Dioxide Level 26 30 21-32 MMOL/L Anion Gap 13 9 5-14 MMOL/L Blood Urea Nitrogen 14 15 7-18 MG/DL Creatinine 0.71 0.65 0.60-1.30 MG/DL Estimat Glomerular Filtration Rate > 60 > 60 BUN/Creatinine Ratio 20 23 Glucose Level 314 H 205 H 70-105 MG/DL Lactic Acid Level 1.10 0.50-2.00 MMOL/L Calcium Level 9.2 9.1 8.5-10.1 MG/DL Corrected Calcium 9.6 9.8 8.5-10.1 MG/DL Total Bilirubin 1.6 H 1.4 H 0.1-1.0 MG/DL Aspartate Amino Transf (AST/SGOT) 14 10 5-34 U/L Alanine Aminotransferase (ALT/SGPT) 10 8 0-55 U/L Alkaline Phosphatase 93 77 40-136 U/L Total Protein 6.9 6.1 L 6.4-8.2 GM/DL Albumin 3.5 3.1 L 3.2-4.5 GM/DL Test 10/22/18 11:02 10/22/18 15:44 Range/Units Glucometer 322 H 328 H 70-110 MG/DL Radiology CXR 10/21: "IMPRESSION: There are bilateral lower lobe infiltrates. There has been slight improved aeration of the left lower lobe since 08/27/2018 study with more opacification of the right lung base since the prior exam." Physical Exam-([facility]) Physical Exam Vital Signs VS - Last 72 Hours, by Label 10/21/18 10/21/18 10/21/18 10/21/18 19:15 19:44 20:13 20:30 Temp 102.5 102.5 102.5 100.6 Pulse 120 120 117 Resp 20 18 18 B/P (MAP) 129/63 (85) 136/78 129/66 (87) Pulse Ox 93 97 96 O2 Delivery Nasal Cannula Nasal Cannula O2 Flow Rate 3.00 3.00 3.00 10/21/18 10/21/18 10/21/18 10/21/18 21:05 22:18 22:53 23:06 Temp 100.6 Pulse 110 101 98 Resp 18 B/P (MAP) 123/61 (81) Pulse Ox 96 95 95 O2 Delivery Nasal Cannula O2 Flow Rate 3.00 3.00 10/22/18 10/22/18 10/22/18 10/22/18 00:00 01:00 02:16 04:15 Temp 100.6 98.2 Pulse 75 83 B/P (MAP) 118/62 (80) Pulse Ox 100 O2 Flow Rate 4.00 10/22/18 10/22/18 10/22/18 10/22/18 07:00 08:00 08:00 08:01 Temp 97.2 Pulse 82 92 Resp 18 B/P (MAP) 120/62 (81) Pulse Ox 98 99 O2 Delivery Nasal Cannula Nasal Cannula Nasal Cannula O2 Flow Rate 3.00 3.00 3.00 10/22/18 10/22/18 10/22/18 10/22/18 11:44 12:00 13:00 15:46 Temp 98.0 97.7 Pulse 102 108 97 Resp 18 18 B/P (MAP) 119/57 (77) 118/74 (89) Pulse Ox 96 96 97 O2 Delivery Nasal Cannula Nasal Cannula Nasal Cannula O2 Flow Rate 3.00 3.00 3.00 10/22/18 15:51 Pulse Ox 96 O2 Delivery Nasal Cannula O2 Flow Rate 3.00 Capillary Refill : Less Than 3 SecondsLess Than 3 Seconds General Appearance: WD/WN, no apparent distress Respiratory: lungs clear, normal breath sounds Cardiovascular: regular rate, rhythm, no murmur Gastrointestinal: normal bowel sounds, non tender, soft Neurologic/Psychiatric: alert, normal mood/affect, oriented x 3 Skin: normal color, warm/dry Assessment/Plan Assessment/Plan Admission Status: Inpatient Order (span 2 midnights) Reason for Inpatient Admission: Sepsis with underlying malignancy at high risk for decompensation. (1) Sepsis Status: Acute Assessment & Plan: Suspect secondary to pneumonia, started on Zosyn and vancomycin, decreasing temperature and heart rate. (2) Bacteremia Status: Acute Assessment & Plan: Blood culture gram stains with gram positive cocci in dhruv ns, suspect strep pneumo. Abx as above, awaiting final results. (3) Pneumonia Status: Acute Qualifiers: Qualified Codes: J18.1 - Lobar pneumonia, unspecified organism (4) Metastatic breast cancer Status: Acute Assessment & Plan: Consult Dr. Trinh for continuation of care (5) Diabetes mellitus, type 2 Status: Chronic Assessment & Plan: Hold home meds due to acute illness, sliding scale insulin, diabetic diet. (6) DVT prophylaxis Status: Acute Assessment & Plan: Enoxaparin Clinical Quality Measures DVT/VTE Risk/Contraindication: Risk Factor Score Per Nursin RFS Level Per Nursing on Admit: 4+=Very High MARÍA CAROLINA MD Oct 22, 2018 12:00
[2018-10-22] MEDS: ALPRAZolam 0.25 MG (XANAX) TAB PO PRN ×2 (12:50→21:04)
--- NOTE | 2018-10-22 13:55 | NUR ---
Pastoral care visit.
[2018-10-22] MEDS ORDERED: NYST15PO2 TOP (14:09)
[2018-10-22] MEDS ORDERED: MORP-33 PO (14:09)
[2018-10-22] MEDS ORDERED: MAGIC MOUTHWASH MM (14:09)
[2018-10-22] MEDS ORDERED: METF500T8 PO (14:09)
[2018-10-22] MEDS ORDERED: LIRA0.6P3 SC (14:09)
--- NOTE | 2018-10-22 15:08 | NUR ---
WENT OVER THE EXT MED HX WITH THE PATIENT AND SHE VERIFIED HOW SHE TAKES THEM TO THE BEST OF HER ABILITY. HER GLIPIZIDE WAS RECENTLY FILLED #30 FOR 30 DAYS HOWEVER SHE STATES SHE TAKES IT BID. I CALLED [facility] AND THEY STATE IT WAS PRESCRIBED BID, THEY JUST SUBMITTED THE CLAIM FOR THE INCORRECT DAYS SUPPLY. SHE STATES SHE DOES NOT TAKE DETROL THAT WAS FILLED 06-27-18 #30 BUT SHE STATES SHE IS SUPPOSED TO BE TAKING MYRBETRIQ 50MG DAILY THAT WAS LAST FILLED 06-25-18 #30- I NOTED THE PAST DUE FILL DATE ON THE MED REC. SHE FILLED LETROZOLE 2.5MG #30 06-25-18 - SHE THOUGHT SHE WAS STILL TAKING THIS HOWEVER WHEN I CALLED DR. PARRISH'S OFFICE TO VERIFY HER DOSE OF IBRANCE WHICH SHE THOUGHT SHE WAS STILL TAKING THEY STATE SHE IS NOT TO BE TAKING THE LETROZOLE OR IBRANCE ANYMORE. I REMOVED THEM FROM THE MED REC AT THIS TIME. OTC MEDS: MAG BID ASPIRIN 81MG 1700 VITAMIN D 1200
[2018-10-22] MEDS ORDERED: NON-FORMULARY MEDICATION 1 EA EA (Hydrocodone/Acetaminophen (Hydrocodone-Acetamin 7.5-325) PO PRN (15:15)
[2018-10-22] MEDS ORDERED: NON-FORMULARY MEDICATION 1 EA EA (Diphenoxylate HCl/Atropine (Diphenoxylate-Atrop 2.5-0.02 PO PRN (15:15)
[2018-10-22] MEDS ORDERED: DIPHENOXYLATE/ATROPINE 2.5MG/0.025MG (LOMOTIL) TAB PO PRN (15:45)
[2018-10-22 15:46] VITALS: BP 118/74
[2018-10-22] MEDS: ASPIRIN E.C. 81 MG (ECOTRIN) TAB PO SCH (16:55)
[2018-10-22] MEDS: DICYCLOMINE 10 MG (BENTYL) CAP PO SCH ×2 (16:55→21:07)
[2018-10-22] MEDS: HYDROcodone/APAP 7.5 MG/325 MG (LORTAB, LORCET PLUS) TABLET PO PRN (16:55)
[2018-10-22] MEDS: ENOXAPARIN 40 MG/0.4 ML (LOVENOX) SYR SQ SCH (17:03)
[2018-10-22] MEDS: LACTATED RINGERS 1,000 ML IV SCH ×2 (17:06→17:32)
[2018-10-22 19:43] VITALS: BP 117/74
[2018-10-22] MEDS ORDERED: NON-FORMULARY MEDICATION 1 EA EA (Sertraline HCl 25 MG) PO SCH (21:00)
[2018-10-22] MEDS ORDERED: NON-FORMULARY MEDICATION 1 EA EA (Omeprazole 40 MG) PO SCH (21:00)
[2018-10-22] MEDS: GABAPENTIN 300 MG (NEURONTIN) CAP PO SCH (21:04)
[2018-10-22] MEDS: MAGNESIUM OXIDE (MAG-OX)400 MG TAB PO SCH (21:04)
[2018-10-22] MEDS: morphine ER 15 MG (MS CONTIN) TAB PO SCH (21:04)
[2018-10-22] MEDS: PANTOPRAZOLE 40 MG (PROTONIX) TAB PO SCH (21:05)
[2018-10-22] MEDS: SERTRALINE 50 MG (ZOLOFT) TABLET PO SCH (21:05)
[2018-10-22] MEDS: MONTELUKAST 10 MG (SINGULAIR) TAB PO SCH (21:05)
[2018-10-22] MEDS ORDERED: VANCOMYCIN 1 GM/NS 250 ML IVPB IV SCH ×2 (23:00)
[2018-10-23] VITALS (7 sets, daily range): BP systolic 112–153; BP diastolic 64–85
[2018-10-23] MEDS: PIPERACILLIN/TAZO 4.5 GM/NS 100 ML IV SCH ×2 (03:34)
[2018-10-23] MEDS: HYDROcodone/APAP 7.5 MG/325 MG (LORTAB, LORCET PLUS) TABLET PO PRN ×4 (03:35→22:12)
[2018-10-23] MEDS: LACTATED RINGERS 1,000 ML IV SCH ×3 (04:41→18:09)
[2018-10-23] MEDS: PANTOPRAZOLE 40 MG (PROTONIX) TAB PO SCH ×2 (05:53→21:02)
[2018-10-23] MEDS: KCL 20 MEQ TAB (K-DUR) PO SCH (05:53)
[2018-10-23] MEDS: metFORMIN XR 500 MG (GLUCOPHAGE XR) TAB PO SCH (05:54)
[2018-10-23] MEDS: inSUlin ASPART (NovoLOG) 1 UNIT/0.01 ML (CHARGE PER UNIT) SC SCH ×4 (05:54→21:04)
[2018-10-23] MEDS: LEVOTHYROXINE 125 MCG (LEVOTHROID) TABLET PO SCH (05:54)
[2018-10-23 06:38] LABS: MEAN PLATELET VOLUME 11.4 FL (7.4-10.4); RED CELL DISTRIBUTION WIDTH 18.8 % (10.0-14.5); WHITE BLOOD COUNT 6.2 10^3/uL (4.3-11.0)
[2018-10-23 07:04] LABS: BUN/CREATININE RATIO 20; CALCIUM 8.9 MG/DL (8.5-10.1); CARBON DIOXIDE 31 MMOL/L (21-32); CHLORIDE 105 MMOL/L (98-107); CREATININE SERUM 0.55 MG/DL (0.60-1.30); GFR ESTIMATED > 60; GLUCOSE 166 MG/DL (70-105); POTASSIUM 3.6 MMOL/L (3.6-5.0); SODIUM 143 MMOL/L (135-145)
[2018-10-23] MEDS: RT-ALBUTEROL/IPRATROPIUM 3 ML (DUONEB) VIAL INH SCH ×4 (07:31→19:50)
[2018-10-23] MEDS: GABAPENTIN 300 MG (NEURONTIN) CAP PO SCH ×3 (09:07→21:02)
[2018-10-23] MEDS: morphine ER 15 MG (MS CONTIN) TAB PO SCH ×2 (09:07→21:03)
[2018-10-23] MEDS: MAGNESIUM OXIDE (MAG-OX)400 MG TAB PO SCH ×2 (09:08→21:02)
[2018-10-23] MEDS: DICYCLOMINE 10 MG (BENTYL) CAP PO SCH ×4 (09:08→21:02)
[2018-10-23] MEDS: IBUPROFEN 600 MG (MOTRIN) TAB PO PRN ×2 (09:08→14:13)
[2018-10-23] MEDS ORDERED: NON-FORMULARY MEDICATION 1 EA EA (Mirabegron (Myrbetriq) 50 MG) PO SCH (12:00)
[2018-10-23] MEDS ORDERED: NON-FORMULARY MEDICATION 1 EA EA (Cholecalciferol (Vitamin D3) (Vitamin D) 2,000 UNIT) PO SCH (12:00)
[2018-10-23] MEDS: ceFAZolin 1,000 MG/SWFI 10 ML IV PUSH IV SCH ×4 (12:17→21:03)
[2018-10-23] MEDS: VITAMIN D3 1,000 UNITS (CHOLECALCIFEROL) TABLET PO SCH (12:17)
--- NOTE | 2018-10-23 15:42 | CONSULTATION REPORT ---
DATE OF SERVICE: 10/23/2018 The patient is admitted to room 413. PHYSICIAN REQUESTING CONSULTATION: Fallon Carolina MD IMPRESSION: 1. A 72-year-old female with metastatic breast cancer and malignant pleural effusion, who was on outpatient chemotherapy treatments with weekly Abraxane regimen, admitted to the hospital with increasing shortness of breath. 2. The patient has been sick for the past 2 weeks, initially with mouth sores and dehydration and was off chemotherapy. 3. Initial diagnosis of stage IIIC right breast cancer in 2008 and metastatic disease with malignant pleural effusion in 2017. 4. Recent evidence of probable progression with enlarging left adrenal lesion and bone metastasis. 5. Beta-hemolytic strep, group B sepsis. RECOMMENDATIONS: 1. Continue management of probable pneumonia as you are doing. 2. With regards to chemotherapy, I will continue holding the treatment until her current symptoms improve. 3. If she has evidence of progressive disease and her general condition is worsening, we may discuss about best supportive care. 4. Per patient request, maintain her as DNR, but continue current treatments. 5. We will follow the patient with you. 6. Continue appropriate antibiotic therapy as you are doing. BRIEF HISTORY: The patient is a 72-year-old female, who was brought to the emergency room with increasing shortness of breath and mental status changes. She had fever upto 101 degrees Fahrenheit at home and the oxygen saturation level dropped at home. She has not been feeling well for the past one to two weeks and was not receiving any chemotherapy. She was admitted to the hospital and started on antibiotic therapy because of lung infiltrates and effusion. Oncology consultation was requested for concurrent care. PAST MEDICAL HISTORY: Significant for stage III right breast cancer diagnosed in 2008, status post lumpectomy and axillary node dissection with an ER positive, PA positive and HER-2/jocelyne negative tumor. The patient underwent adjuvant chemotherapy with Adriamycin and Cytoxan regimen x4 cycles followed by weekly paclitaxel x12 and adjuvant radiation therapy to the right breast. Following this, she was on adjuvant hormonal therapy with letrozole for 5 years and completed this in early 2014. She was diagnosed with recurrent/malignant breast cancer with malignant pleural effusion involving the left hemithorax in 09/2016. The tumor cells were still estrogen receptor positive and she was started on treatment with Ibrance plus letrozole regimen, which was continued until 05/2018 when she was noted to have bony metastasis to the spine. She underwent palliative radiation to lower thoracic vertebrae. Following this, palliative chemotherapy with weekly Abraxane regimen was started. She has completed 4 cycles so far and has been off chemotherapy for the last few weeks as she was not feeling well. Most recent CT scan and bone scan showed progressive disease in the bone, but overall improvement in the tumor markers over the past four months. OTHER MEDICAL PROBLEMS: Include hypertension, hypercholesterolemia and peripheral vascular disease. She has hypothyroidism following a thyroidectomy and is on replacement. Other than the right breast lumpectomy, she has had a cholecystectomy, hysterectomy, orthopedic surgery and eye surgery. She has mild lymphedema of the right arm following her breast surgery. She has diabetes mellitus type 2. The patient has mild mental retardation, but used to be with high functioning. She lives alone, but has a email engineer, who checks on her on a daily basis. FAMILY HISTORY: Unremarkable and details are unknown to the patient. PHYSICAL EXAMINATION: GENERAL: Showed elderly female, moderately obese, awake and answering simple questions appropriately. VITAL SIGNS: Temperature was 97.1, pulse rate of 90, respirations 20, blood pressure 112/64, oxygen saturation 99% on 3 liters of oxygen by nasal cannula. HEENT: Normocephalic. Extraocular muscles intact. Conjunctivae slightly pale. Oral mucosa is moist without lesions. NECK: Supple with no JVD. No cervical, supraclavicular or axillary lymphadenopathy palpable. CHEST: Showed a port present. LUNGS: With diminished breath sounds in the left base. A few rhonchi heard more on the left side. No wheezes or rales heard. CARDIOVASCULAR: Regular in rate and rhythm. No murmurs or gallops heard. ABDOMEN: Obese, soft, nontender with no hepatosplenomegaly or other masses palpable. EXTREMITIES: Showed trace lymphedema of the right upper extremity. Rest of the extremities without edema. NEUROLOGIC: Showed no focal motor deficits. LABORATORY DATA: CBC done today showed white count of 6.2, hemoglobin 8.0 and platelet count of 116,000. Admission labs done on 10/21/2018 showed WBC 16.7, hemoglobin 9.6 and platelet count 126,000 with neutrophil count 15.4 and lymphocyte count 0.3. Basic metabolic panel done today showed normal electrolytes. BUN was 11 and creatinine 0.55 with GFR more than 60 mL per minute. A CMP done at the time of admission showed normal electrolytes except potassium level of 3.3. BUN was 14 and creatinine 0.71 with GFR more than 60 mL per minute. Nonfasting glucose was 314. Total bilirubin was elevated at 1.6 with the rest of the liver function studies within normal limits. Corrected calcium was 9.6. Chest x-ray done at the time of admission showed bilateral lower lobe infiltrates. Slight improvement in aeration of the left lower lobe since 08/27/2018, but there has been more opacification of the right lung base. Urinalysis showed 2+ protein, 4+ glucose and 4+ ketones, 1+ RBC was present. Trace bacteria with leukocyte esterase negative. This was not cultured. Blood cultures obtained from the port as well as the peripheral sticks growing beta-hemolytic streptococci, group B. Thank you for allowing me to participate in this patient's care. I will follow the patient with you and make appropriate recommendations. Job ID: [id number] DocumentID: [id number] Dictated Date: 10/23/2018 15:04:28 Landscape Specialist Date: 10/23/2018 15:42:00 Dictated By: KEATON EAST MD [facility]
[2018-10-23] MEDS: ENOXAPARIN 40 MG/0.4 ML (LOVENOX) SYR SQ SCH (15:55)
[2018-10-23] MEDS: ASPIRIN E.C. 81 MG (ECOTRIN) TAB PO SCH (15:55)
--- NOTE | 2018-10-23 16:21 | Progress Note ---
Subjective Subjective/Events-last exam Afebrile. Reports feeling somewhat better. Focused Exam Lactate Level 10/21/18 19:35: Lactic Acid Level 1.10 Objective Exam Last Set of Vital Signs Vital Signs Date Time Temp Pulse Resp B/P (MAP) Pulse Ox O2 Delivery O2 Flow Rate FiO2 10/23/18 15:51 98.4 94 18 115/65 (82) 99 Nasal Cannula 3.00 Capillary Refill : Less Than 3 SecondsLess Than 3 Seconds I&O Intake and Output 10/23/18 00:00 Intake Total 4215 ml Output Total 950 ml Balance 3265 ml Intake Oral 1580 ml IV Total 2635 ml Output Urine Total 950 ml # Voids 2 Daily Weight Change No General: Alert, No Acute Distress Lungs: Clear to Auscultation, Normal Air Movement Heart: Regular Rate, No Murmurs Neuro: Normal Speech Psych/Mental Status: Mood NL Results/Procedures Lab Laboratory Tests 10/22/18 19:41: Glucometer 301H 10/23/18 05:42: Glucometer 182H 10/23/18 05:45: White Blood Count 6.2, Red Blood Count 3.16L, Hemoglobin 8.0L, Hematocrit 28L, Mean Corpuscular Volume 88, Mean Corpuscular Hemoglobin 25, Mean Corpuscular Hemoglobin Concent 29L, Red Cell Distribution Width 18.8H, Platelet Count 116L, Mean Platelet Volume 11.4H, Sodium Level 143, Potassium Level 3.6, Chloride Level 105, Carbon Dioxide Level 31, Anion Gap 7, Blood Urea Nitrogen 11, Creatinine 0.55L, Estimat Glomerular Filtration Rate > 60, BUN/Creatinine Ratio 20, Glucose Level 166H, Calcium Level 8.9 10/23/18 11:43: Glucometer 222H 10/23/18 15:48: Glucometer 243H Microbiology 10/21/18 Blood Culture - Preliminary, Resulted Strep, Beta Hemolytic Group B Radiology CXR 10/21: "IMPRESSION: There are bilateral lower lobe infiltrates. There has been slight improved aeration of the left lower lobe since 08/27/2018 study with more opacification of the right lung base since the prior exam. Assessment/Plan Assessment/Plan (1) Sepsis Status: Acute Assessment & Plan: Suspect secondary to pneumonia, started on Zosyn and vancomycin, decreasing temperature and heart rate. 10/23 cultures positive for group B strep, change antibiotics to Ancef, d/c vancomycin. Continuing to improve. Qualifiers: (2) Bacteremia Status: Acute Assessment & Plan: Blood culture gram stains with gram positive cocci in chains, suspect strep pneumo. Abx as above, awaiting final results. 10/23 GBS as noted above. (3) Pneumonia Status: Acute Qualifiers: Qualified Codes: J18.1 - Lobar pneumonia, unspecified organism (4) Metastatic breast cancer Status: Acute Assessment & Plan: Consult Dr. Trinh for continuation of care (5) Diabetes mellitus, type 2 Status: Chronic Assessment & Plan: Hold home meds due to acute illness, sliding scale insulin, diabetic diet. (6) DVT prophylaxis Status: Acute Assessment & Plan: Enoxaparin Clinical Quality Measures DVT/VTE Risk/Contraindication: Risk Factor Score Per Nursin RFS Level Per Nursing on Admit: 4+=Very High MARÍA ALEJO MD Oct 23, 2018 16:21
--- NOTE | 2018-10-23 18:50 | Wound Care Assessment ---
Wound Care Assessment Date Seen by Provider: Oct 23, 2018 Time Seen by Provider: 18:45 Chief Complaint Sacral ulcer. HPI The patient is a 72 year old female with a Stage 2 pressure ulcer of the sacrum. She is urged to stay off of it. Clinical setting of pneumonia and metastatic breast cancer. Outcome will depend on the extent to which she does that. Past Medical History: Admits Cancer, Treaments (Metastatic, on chemotherapy.) Smoking Status: Former Smoker Recreational Drug Use: No Alcohol Use: Denies Use Review of Systems Pulmonary: No Dyspnea Cardiovascular: No: Chest Pain Exam Vital Signs Date Time Temp Pulse Resp B/P (MAP) Pulse Ox O2 Delivery O2 Flow Rate FiO2 10/23/18 15:51 98.4 94 18 115/65 (82) 99 Nasal Cannula 3.00 Capillary Refill : Less Than 3 SecondsLess Than 3 Seconds General Appearance: no apparent distress Back: other (sacral ulcer -- 1.2 x 1.1 x 0.2 cm, base fibrin and dermis, periwound macerated.) Results Laboratory Tests 10/22/18 19:41: Glucometer 301H 10/23/18 05:42: Glucometer 182H 10/23/18 05:45: White Blood Count 6.2, Red Blood Count 3.16L, Hemoglobin 8.0L, Hematocrit 28L, Mean Corpuscular Volume 88, Mean Corpuscular Hemoglobin 25, Mean Corpuscular Hemoglobin Concent 29L, Red Cell Distribution Width 18.8H, Platelet Count 116L, Mean Platelet Volume 11.4H, Sodium Level 143, Potassium Level 3.6, Chloride Level 105, Carbon Dioxide Level 31, Anion Gap 7, Blood Urea Nitrogen 11, Creatinine 0.55L, Estimat Glomerular Filtration Rate > 60, BUN/Creatinine Ratio 20, Glucose Level 166H, Calcium Level 8.9 10/23/18 11:43: Glucometer 222H 10/23/18 15:48: Glucometer 243H Microbiology 10/21/18 Blood Culture - Preliminary, Resulted Strep, Beta Hemolytic Group B Microbiology 10/21/18 Blood Culture - Preliminary, Resulted Strep, Beta Hemolytic Group B 10/21/18 Blood Culture - Preliminary, Resulted Strep, Beta Hemolytic Group B Assessment/Plan/Dx 1. Pressure ulcer of sacrum, Stage 2. 2. Metastatic breast cancer. Plan: Bordered foam dressing ordered. Will follow. HOLLI DELGADO MD Oct 23, 2018 18:50
[2018-10-23] MEDS: fentaNYL INJECTION 100 MCG/2 ML AMP IV PRN ×2 (19:01→22:12)
[2018-10-23] MEDS: SERTRALINE 50 MG (ZOLOFT) TABLET PO SCH (21:01)
[2018-10-23] MEDS: MONTELUKAST 10 MG (SINGULAIR) TAB PO SCH (21:02)
[2018-10-24 03:57] VITALS: BP 147/88
[2018-10-24 05:47] LABS: BASOPHILS % (AUTO) 0 % (0-10); EOSINOPHILS % (AUTO) 0 % (0-10); HEMATOCRIT 28 % (35-52); LYMPHOCYTES # (AUTO) 0.6 X 10^3 (1.0-4.0); LYMPHOCYTES % (AUTO) 8 % (12-44); MEAN CORPUSCULAR HEMOGLOBIN 25 PG (25-34); MEAN CORPUSCULAR HGB CONC 29 G/DL (32-36); MEAN CORPUSCULAR VOLUME 89 FL (80-99); MEAN PLATELET VOLUME 10.1 FL (7.4-10.4); MONOCYTES # (AUTO) 0.8 X 10^3 (0.0-1.0); MONOCYTES % (AUTO) 11 % (0-12); NEUTROPHILS # (AUTO) 5.6 X 10^3 (1.8-7.8); NEUTROPHILS % (AUTO) 80 % (42-75); PLATELET COUNT 115 10^3/uL (130-400); RED CELL DISTRIBUTION WIDTH 18.7 % (10.0-14.5)
[2018-10-24 06:10] LABS: BUN/CREATININE RATIO 15; CALCIUM 8.9 MG/DL (8.5-10.1); CARBON DIOXIDE 32 MMOL/L (21-32); CHLORIDE 101 MMOL/L (98-107); CREATININE SERUM 0.52 MG/DL (0.60-1.30); GFR ESTIMATED > 60; GLUCOSE 236 MG/DL (70-105); POTASSIUM 3.9 MMOL/L (3.6-5.0); SODIUM 140 MMOL/L (135-145)
[2018-10-24] MEDS: metFORMIN XR 500 MG (GLUCOPHAGE XR) TAB PO SCH (06:24)
[2018-10-24] MEDS: inSUlin ASPART (NovoLOG) 1 UNIT/0.01 ML (CHARGE PER UNIT) SC SCH ×4 (06:24→21:06)
[2018-10-24] MEDS: ceFAZolin 1,000 MG/SWFI 10 ML IV PUSH IV SCH ×6 (06:24→21:06)
[2018-10-24] MEDS: PANTOPRAZOLE 40 MG (PROTONIX) TAB PO SCH ×2 (06:24→21:04)
[2018-10-24] MEDS: KCL 20 MEQ TAB (K-DUR) PO SCH (06:24)
[2018-10-24] MEDS: LEVOTHYROXINE 125 MCG (LEVOTHROID) TABLET PO SCH (06:24)
[2018-10-24] MEDS: HYDROcodone/APAP 7.5 MG/325 MG (LORTAB, LORCET PLUS) TABLET PO PRN ×2 (06:27→19:48)
[2018-10-24] MEDS: RT-ALBUTEROL/IPRATROPIUM 3 ML (DUONEB) VIAL INH SCH ×4 (06:54→23:56)
[2018-10-24 08:00] VITALS: BP 134/75
[2018-10-24] MEDS: morphine ER 15 MG (MS CONTIN) TAB PO SCH ×2 (08:31→21:05)
[2018-10-24] MEDS: DICYCLOMINE 10 MG (BENTYL) CAP PO SCH ×4 (08:31→21:04)
[2018-10-24] MEDS: GABAPENTIN 300 MG (NEURONTIN) CAP PO SCH ×3 (08:31→21:05)
[2018-10-24] MEDS: MAGNESIUM OXIDE (MAG-OX)400 MG TAB PO SCH ×2 (08:31→21:04)
--- NOTE | 2018-10-24 09:47 | NUR ---
Arleth is a 72 year old single pt who lives independently.She manages with the care of Yelitza Leonard who provides her 28 hours of homemaker services weekly and lives next door. Arleth is also receiving Home Health Services from [facility]. Her case resource manager with her [employer] insurance has been contacted and request made for additional care giving hours sine her condition has progressed. While in the hospital pt did sign a DNR and Living Will. According to her caregiver, pt has no living family.Will follow and assist with continued care plans.
[2018-10-24] MEDS: LACTATED RINGERS 1,000 ML IV SCH ×2 (10:00→15:00)
[2018-10-24] MEDS: IBUPROFEN 600 MG (MOTRIN) TAB PO PRN (10:28)
--- NOTE | 2018-10-24 11:40 | Progress Note ---
Subjective Subjective/Events-last exam Afebrile, still having neck pain, denies other concerns. Focused Exam Lactate Level 10/21/18 19:35: Lactic Acid Level 1.10 Objective Exam Last Set of Vital Signs Vital Signs Date Time Temp Pulse Resp B/P (MAP) Pulse Ox O2 Delivery O2 Flow Rate FiO2 10/24/18 10:55 98 Nasal Cannula 3.00 10/24/18 09:05 99.4 10/24/18 08:00 100 20 134/75 (94) Capillary Refill : Less Than 3 SecondsLess Than 3 Seconds I&O Intake and Output 10/24/18 00:00 Intake Total 3750 ml Balance 3750 ml Intake Oral 1360 ml IV Total 2390 ml # Voids 8 General: Alert, No Acute Distress Lungs: Clear to Auscultation, Normal Air Movement Heart: Other (tachycardic) Neuro: Normal Speech Psych/Mental Status: Mood NL Results/Procedures Lab Laboratory Tests 10/23/18 11:43: Glucometer 222H 10/23/18 15:48: Glucometer 243H 10/23/18 20:44: Glucometer 307H 10/24/18 05:35: White Blood Count 7.0, Red Blood Count 3.16L, Hemoglobin 8.0L, Hematocrit 28L, Mean Corpuscular Volume 89, Mean Corpuscular Hemoglobin 25, Mean Corpuscular Hemoglobin Concent 29L, Red Cell Distribution Width 18.7H, Platelet Count 115L, Mean Platelet Volume 10.1, Neutrophils (%) (Auto) 80H, Lymphocytes (%) (Auto) 8L , Monocytes (%) (Auto) 11, Eosinophils (%) (Auto) 0, Basophils (%) (Auto) 0, Neutrophils # (Auto) 5.6, Lymphocytes # (Auto) 0.6L, Monocytes # (Auto) 0.8, Eosinophils # (Auto) 0.0, Basophils # (Auto) 0.0, Sodium Level 140, Potassium Level 3.9, Chloride Level 101, Carbon Dioxide Level 32, Anion Gap 7, Blood Urea Nitrogen 8, Creatinine 0.52L, Estimat Glomerular Filtration Rate > 60, BUN/Creatinine Ratio 15, Glucose Level 236H, Calcium Level 8.9 10/24/18 06:03: Glucometer 252H Microbiology 10/21/18 Blood Culture - Preliminary, Resulted Strep, Beta Hemolytic Group B Radiology CXR 10/21: "IMPRESSION: There are bilateral lower lobe infiltrates. There has been slight improved aeration of the left lower lobe since 08/27/2018 study with more opacification of the right lung base since the prior exam. Assessment/Plan Assessment/Plan (1) Sepsis Status: Acute Assessment & Plan: Suspect secondary to pneumonia, started on Zosyn and vancomycin, decreasing temperature and heart rate. 10/23 cultures positive for group B strep, change antibiotics to Ancef, d/c vancomycin. Continuing to improve. 10/24 continue cefazolin. Qualifiers: (2) Bacteremia Status: Acute Assessment & Plan: Blood culture gram stains with gram positive cocci in chains, suspect strep pneumo. Abx as above, awaiting final results. 10/23 GBS as noted above. (3) Pneumonia Status: Acute Qualifiers: Qualified Codes: J18.1 - Lobar pneumonia, unspecified organism (4) Metastatic breast cancer Status: Acute Assessment & Plan: Consult Dr. Trinh for continuation of care (5) Diabetes mellitus, type 2 Status: Chronic Assessment & Plan: Hold home meds due to acute illness, sliding scale insulin, diabetic diet. (6) DVT prophylaxis Status: Acute Assessment & Plan: Enoxaparin Clinical Quality Measures DVT/VTE Risk/Contraindication: Risk Factor Score Per Nursin RFS Level Per Nursing on Admit: 4+=Very High MARÍA ALEJO MD Oct 24, 2018 11:40
[2018-10-24] MEDS: VITAMIN D3 1,000 UNITS (CHOLECALCIFEROL) TABLET PO SCH (11:54)
[2018-10-24 12:00] VITALS: BP 123/71
[2018-10-24 16:15] VITALS: BP 155/88
[2018-10-24] MEDS: ASPIRIN E.C. 81 MG (ECOTRIN) TAB PO SCH (16:41)
[2018-10-24] MEDS: ENOXAPARIN 40 MG/0.4 ML (LOVENOX) SYR SQ SCH (16:42)
[2018-10-24 20:31] VITALS: BP 136/80
[2018-10-24] MEDS: MONTELUKAST 10 MG (SINGULAIR) TAB PO SCH (21:04)
[2018-10-24] MEDS: SERTRALINE 50 MG (ZOLOFT) TABLET PO SCH (21:05)
[2018-10-25] MEDS: LACTATED RINGERS 1,000 ML IV SCH (00:05)
[2018-10-25] MEDS: fentaNYL INJECTION 100 MCG/2 ML AMP IV PRN (00:09)
[2018-10-25 00:20] VITALS: BP 143/84
[2018-10-25] MEDS: HYDROcodone/APAP 7.5 MG/325 MG (LORTAB, LORCET PLUS) TABLET PO PRN ×2 (04:12→11:46)
[2018-10-25 04:15] VITALS: BP 151/82
[2018-10-25] MEDS: ceFAZolin 1,000 MG/SWFI 10 ML IV PUSH IV SCH ×2 (05:28)
[2018-10-25] MEDS: KCL 20 MEQ TAB (K-DUR) PO SCH (05:29)
[2018-10-25] MEDS: PANTOPRAZOLE 40 MG (PROTONIX) TAB PO SCH (05:29)
[2018-10-25] MEDS: LEVOTHYROXINE 125 MCG (LEVOTHROID) TABLET PO SCH (05:29)
[2018-10-25] MEDS: metFORMIN XR 500 MG (GLUCOPHAGE XR) TAB PO SCH (05:29)
[2018-10-25 05:48] LABS: HEMOGLOBIN 7.8 G/DL (11.5-16.0); MEAN PLATELET VOLUME 11.2 FL (7.4-10.4); RED CELL DISTRIBUTION WIDTH 18.9 % (10.0-14.5); WHITE BLOOD COUNT 7.5 10^3/uL (4.3-11.0)
[2018-10-25] MEDS: inSUlin ASPART (NovoLOG) 1 UNIT/0.01 ML (CHARGE PER UNIT) SC SCH ×2 (06:00→11:46)
[2018-10-25 06:09] LABS: BUN/CREATININE RATIO 12; CALCIUM 8.9 MG/DL (8.5-10.1); CARBON DIOXIDE 31 MMOL/L (21-32); CHLORIDE 97 MMOL/L (98-107); GFR ESTIMATED > 60; GLUCOSE 211 MG/DL (70-105); POTASSIUM 3.9 MMOL/L (3.6-5.0); SODIUM 136 MMOL/L (135-145)
[2018-10-25 08:00] VITALS: BP 148/76
[2018-10-25] MEDS: GABAPENTIN 300 MG (NEURONTIN) CAP PO SCH ×2 (08:26→11:46)
[2018-10-25] MEDS: morphine ER 15 MG (MS CONTIN) TAB PO SCH (08:26)
[2018-10-25] MEDS: MAGNESIUM OXIDE (MAG-OX)400 MG TAB PO SCH (08:27)
[2018-10-25] MEDS: DICYCLOMINE 10 MG (BENTYL) CAP PO SCH ×2 (08:27→11:47)
[2018-10-25] MEDS: RT-ALBUTEROL/IPRATROPIUM 3 ML (DUONEB) VIAL INH SCH (10:29)
[2018-10-25] MEDS: VITAMIN D3 1,000 UNITS (CHOLECALCIFEROL) TABLET PO SCH (11:47)
--- NOTE | 2018-10-25 12:13 | NUR ---
SWING BED evaluation complete at the verbal request of . Patient does qualify for SWB services for IV Antibiotics and she will need Physical and Occupational therapies due t living independently at home where she plans to return.
--- NOTE | 2018-10-25 12:18 | Discharge Instructions ---
Discharge Instructions Discharge Medications Continued Medications: Albuterol Sulfate (Albuterol Sulfate) 2.5 Mg/3 Ml Vial.neb 2.5 MG NEB Q4H PRN for SHORTNESS OF BREATH, EA Aspirin (Aspirin EC) 81 Mg Tablet.dr 81 MG PO 1700, TAB Cholecalciferol (Vitamin D3) (Vitamin D) 2,000 Unit Tablet 2000 UNIT PO 1200, TAB Dicyclomine HCl (Dicyclomine HCl) 10 Mg Capsule 10 MG PO QID, CAP Diphenoxylate HCl/Atropine (Diphenoxylate-Atrop 2.5-0.025) 1 Each Tablet 1-2 TAB PO QID PRN for DIARRHEA, TAB Gabapentin (Gabapentin) 300 Mg Capsule 300 MG PO TID, CAP Glipizide (Glipizide) 10 Mg Tablet 10 MG PO BID, TAB Hydrocodone/Acetaminophen (Hydrocodone-Acetamin 7.5-325) 1 Each Tablet 1 TAB PO Q6H PRN for PAIN-MODERATE, TAB Levothyroxine Sodium (Levothyroxine Sodium) 125 Mcg Tablet 125 MCG PO DAILY, TAB Liraglutide (Victoza 3-Klaus) 0.6 Mg/0.1 Ml Pen.injctr 1.8 MG SC HS, EA [Magic Mouthwash] () MM UD PRN for MOUTH SORES, EA DIP COTTON SWAB INTO MEDICATION AND SWAB ON SORE AREAS NEEDED TO NUMB PAIN Magnesium Oxide (Magox 400) 400 Mg Tablet 400 MG PO BID, TAB Metformin HCl (Metformin HCl ER) 500 Mg Tab.er.24h 500 MG PO DAILY, TAB Mirabegron (Myrbetriq) 50 Mg Tab.er.24h 50 MG PO 1200, TAB LAST FILLED #30 06-25-18 Montelukast Sodium (Montelukast Sodium) 10 Mg Tablet 10 MG PO HS, TAB Morphine Sulfate (Morphine Sulfate ER) 15 Mg Tablet.er 15 MG PO BID, TAB Nystatin (Nyamyc) 15 Gm Powder TOP BID PRN for RASH, EA Omeprazole (Omeprazole) 40 Mg Capsule.dr 40 MG PO BID, CAP Sertraline HCl (Sertraline HCl) 25 Mg Tablet 25 MG PO HS, TAB MARÍA ALEJO MD Oct 25, 2018 12:18
--- NOTE | 2018-10-25 20:45 | Discharge Summary ---
Discharge Summary Hospital Course Problems/Diagnosis: (1) Sepsis Assessment & Plan: Suspect secondary to pneumonia, started on Zosyn and vancomycin, decreasing temperature and heart rate. 10/23 cultures positive for group B strep, change antibiotics to Ancef, d/c vancomycin. Continuing to improve. 10/24 continue cefazolin. 10/25 transferred to swing bed status to continue antibiotics, repeat cultures done. Qualifiers: (2) Bacteremia Assessment & Plan: Blood culture gram stains with gram positive cocci in chains, suspect strep pneumo. Abx as above, awaiting final results. 10/23 GBS as noted above. (3) Pneumonia Qualifiers: Qualified Codes: J18.1 - Lobar pneumonia, unspecified organism (4) Metastatic breast cancer Assessment & Plan: Consult Dr. Trinh for continuation of care (5) Diabetes mellitus, type 2 Assessment & Plan: Hold home meds due to acute illness, sliding scale insulin, diabetic diet. Hospital Course Date of Admission: Oct 21, 2018 at 20:35 Admission Diagnosis : Family Physician/Provider: Johnny Miranda MD Date of Discharge: 10/25/18 Discharge Diagnosis: See problem list Hospital Course: See problem list Labs and Pending Lab Test: Laboratory Tests 10/25/18 05:35: White Blood Count 7.5, Red Blood Count 3.10L, Hemoglobin 7.8L, Hematocrit 27L, Mean Corpuscular Volume 87, Mean Corpuscular Hemoglobin 25, Mean Corpuscular Hemoglobin Concent 29L, Red Cell Distribution Width 18.9H, Platelet Count 146, Mean Platelet Volume 11.2H, Sodium Level 136, Potassium Level 3.9, Chloride Level 97L, Carbon Dioxide Level 31, Anion Gap 8, Blood Urea Nitrogen 6L, Creatinine 0.50L, Estimat Glomerular Filtration Rate > 60, BUN/Creatinine Ratio 12, Glucose Level 211H, Calcium Level 8.9 10/25/18 06:08: Glucometer 218H 10/25/18 11:36: Glucometer 278H 10/25/18 16:22: Glucometer 312H Microbiology 10/21/18 Blood Culture - Final, Complete Strep, Beta Hemolytic Group B Home Meds Active Reported Nyamyc (Nystatin) 15 Gm Powder TOP BID PRN [Magic Mouthwash] MM UD PRN DIP COTTON SWAB INTO MEDICATION AND SWAB ON SORE AREAS NEEDED TO NUMB PAIN Morphine Sulfate ER (Morphine Sulfate) 15 Mg Tablet.er 15 Mg PO BID Victoza 3-Klaus (Liraglutide) 0.6 Mg/0.1 Ml Pen.injctr 1.8 Mg SC HS Metformin HCl ER (Metformin HCl) 500 Mg Tab.er.24h 500 Mg PO DAILY Diphenoxylate-Atrop 2.5-0.025 (Diphenoxylate HCl/Atropine) 1 Each Tablet 1-2 Tab PO QID PRN Hydrocodone-Acetamin 7.5-325 (Hydrocodone/Acetaminophen) 1 Each Tablet 1 Tab PO Q6H PRN Omeprazole 40 Mg Capsule.dr 40 Mg PO BID Magox 400 (Magnesium Oxide) 400 Mg Tablet 400 Mg PO BID Albuterol Sulfate 2.5 Mg/3 Ml Vial.neb 2.5 Mg NEB Q4H PRN Vitamin D (Cholecalciferol (Vitamin D3)) 2,000 Unit Tablet 2,000 Unit PO 1200 Aspirin EC (Aspirin) 81 Mg Tablet.dr 81 Mg PO 1700 Sertraline HCl 25 Mg Tablet 25 Mg PO HS Montelukast Sodium 10 Mg Tablet 10 Mg PO HS Dicyclomine HCl 10 Mg Capsule 10 Mg PO QID Levothyroxine Sodium 125 Mcg Tablet 125 Mcg PO DAILY Gabapentin 300 Mg Capsule 300 Mg PO TID Glipizide 10 Mg Tablet 10 Mg PO BID Myrbetriq (Mirabegron) 50 Mg Tab.er.24h 50 Mg PO 1200 LAST FILLED #30 5-7-19 Assessment/Pt DC Instructions Transferred to swing bed. Discharge Physical Examination Allergies: Coded Allergies: latex (Verified Allergy, Unknown, 01/31/17) General Appearance: No Apparent Distress, WD/WN Respiratory: Lungs Clear, Normal Breath Sounds Cardiovascular: Regular Rate, Rhythm, No Murmur Skin: Normal Color, Warm/Dry Neurologic/Psychiatric: Alert Copy Copies To 1: JOHNNY MIRANDA MD Discharge Summary Date of Admission Oct 21, 2018 at 20:35 Date of Discharge Oct 25, 2018 at 12:24 Discharge Date: Oct 25, 2018 Clinical Quality Measures DVT/VTE Risk/Contraindication: Risk Factor Score Per Nursin RFS Level Per Nursing on Admit: 4+=Very High MARÍA ALEJO MD Oct 25, 2018 20:45
== END 2018-10-25 12:24 | disposition swing bed (61) | DRG 871 ==
LOC: EDUNIT# 18:52 → ER 18:53 → 4TH 20:35
PROVIDERS: ADMIT Internal Medicine; ATTEND Family Medicine
DX: A40.1 Sepsis due to streptococcus, group B (principal); J18.1 Lobar pneumonia, unspecified organism; J91.0 Malignant pleural effusion; C79.72 Secondary malignant neoplasm of left adrenal gland; C79.51 Secondary malignant neoplasm of bone; E11.42 Type 2 diabetes mellitus with diabetic polyneuropathy; E11.51 Type 2 diabetes mellitus with diabetic peripheral angiopathy without gangrene; Z66 Do not resuscitate; L89.152 Pressure ulcer of sacral region, stage 2; I89.0 Lymphedema, not elsewhere classified; I10 Essential (primary) hypertension; F70 Mild intellectual disabilities; E78.00 Pure hypercholesterolemia, unspecified; E89.0 Postprocedural hypothyroidism; J30.2 Other seasonal allergic rhinitis; K21.9 Gastro-esophageal reflux disease without esophagitis; K58.9 Irritable bowel syndrome, unspecified; G47.9 Sleep disorder, unspecified; F41.9 Anxiety disorder, unspecified; F32.9 Major depressive disorder, single episode, unspecified; B00.9 Herpesviral infection, unspecified; R13.10 Dysphagia, unspecified; M54.9 Dorsalgia, unspecified; E66.9 Obesity, unspecified; M19.91 Primary osteoarthritis, unspecified site; Z85.3 Personal history of malignant neoplasm of breast; Z92.3 Personal history of irradiation; Z99.81 Dependence on supplemental oxygen; Z87.891 Personal history of nicotine dependence; Z68.30 Body mass index [BMI] 30.0-30.9, adult
CPT/HCPCS: 36415; 71045; 80048; 80053; 81000; 82962; 83605; 85007; 85025; 85027; 87040; 87077; 93005; 94640; 94760; 96374

== ENCOUNTER 2018-10-25 11:39 | Inpatient (IN) | payer MEDICARE, MEDICAID ==
[~2018-10-25] VITALS: Ht 154.9 cm; Wt 73.5 kg
[~2018-10-25 11:39] MED LIST changes: +LIRA0.6P3 SC; +MAGIC MOUTHWASH MM; +METF500T8 PO; +MORP-33 PO; +NYST15PO2 TOP
[2018-10-25 12:00] VITALS: BP 126/79
[2018-10-25] MEDS ORDERED: ENOXAPARIN 40 MG/0.4 ML (LOVENOX) SYR SQ SCH (12:30)
[2018-10-25] MEDS ORDERED: ALPRAZolam 0.25 MG (XANAX) TAB PO PRN (12:30)
[2018-10-25] MEDS ORDERED: ONDANSETRON 4 MG/2 ML (SDV) Z0FRAN IV PRN (12:30)
[2018-10-25] MEDS ORDERED: ACETAMINOPHEN 325 MG TABLET PO PRN (12:30)
[2018-10-25] MEDS ORDERED: IBUPROFEN 600 MG (MOTRIN) TAB PO PRN (12:30)
[2018-10-25] MEDS ORDERED: fentaNYL INJECTION 100 MCG/2 ML AMP IV PRN (12:30)
[2018-10-25] MEDS ORDERED: DIPHENOXYLATE/ATROPINE 2.5MG/0.025MG (LOMOTIL) TAB PO PRN (12:30)
--- NOTE | 2018-10-25 13:00 | NUR ---
EVERETT MARTÍNEZ admitted to swing bed status to room 430-1, with an admitting diagnosis of PNA, on 10/25/18 from acute inpatient status. Therapy to evaluate patient for activity needs. EVERETT MARTÍNEZ and family introduced to surroundings, call light, bed controls, phone, TV, temperature control, lights, meal times, smoking policy, visitor policy, side rail policy, bathrooms, and showers. Patient rights given to patient in the handbook.. EVERETT MARTÍNEZ verbalized understanding that [facility] is not responsible for the loss or damage to any personal effects or valuables that are kept in the patients possession during their hospitalization. The following care plans and discharge were discussed with EVERETT MARTÍNEZ: EVERETT MARTÍNEZ verbalizes understanding of the Interdisciplinary Patient Education. Patient was informed about the Rapid Response Team and its purpose. Call light with in reach and patient demonstrates understanding of how to use. EVERETT MARTÍNEZ reports no further needs at this time.
--- NOTE | 2018-10-25 13:15 | NUR ---
PATIENT DID SWING ON THIS DAY FOR CONTINUATION OF IV ANTIBIOTICS AND PHYSICAL AND OCCUPATIONAL THERAPIES. IT IS INTENDED THAT SHE WILL RETURN TO HER HOME INDEPENDENTLY WITH ALREADY ESTABLISHED ASSISTANCE.
[2018-10-25] MEDS: DICYCLOMINE 10 MG (BENTYL) CAP PO SCH ×3 (13:28→20:26)
[2018-10-25] MEDS: LACTATED RINGERS 1,000 ML IV SCH ×2 (13:28→23:35)
[2018-10-25] MEDS: GABAPENTIN 300 MG (NEURONTIN) CAP PO SCH ×2 (13:28→20:26)
[2018-10-25] MEDS: ceFAZolin INJECTION 1,000 MG in WATER (STERILE) FOR INJECTION 10 ML IV SCH ×2 (13:29→21:51)
[2018-10-25] MEDS: ENOXAPARIN 40 MG/0.4 ML (LOVENOX) SYR SQ SCH (13:29)
--- NOTE | 2018-10-25 13:46 | Occupational Therapy Eval ---
OT Evaluation-General/PLF Medical Diagnosis Admission Date Oct 25, 2018 at 12:35 Medical Diagnosis: pneumonia, cepsis Onset Date: Oct 25, 2018 Therapy Diagnosis Therapy Diagnosis: weakness, decreased ADL/ functional mobility Height/Weight Height (Feet): 5 Height (Inches): 1.00 Weight (Pounds): 162 Weight (Ounces): 0.0 Precautions Precautions/Isolations: Fall Prevention, Standard Precautions Referral Physician: Fallon Carolina Referral Reason: Activity Tolerance, Self Care, Evaluation/Treatment, Strengthening/ROM Medical History Pertinent Medical History: DM, HTN, Hypothroidism, Neuropathy Additional Medical History Breast Ca, cellulitis bilateral breasts, respiratory failure, DM type 2 Current History Per H&P: "2 yo female with chills and increased shortness of breath x 2 days at home. She was coughing but states that has stopped. She also notes that she has had cellulitis to both breasts for a couple of days and states she was on antibiotic at home for over 2 weeks [facility]" Reviewed History: Yes Social History Home: Single Level Current Living Status: Alone Entry Into Home: Stairs Without Railing Steps Into Home: 2 Steps Inside Home: 2 Pt lives at home alone, pt receives caregiver assist for IADLs. Pt was IND with ADLs. Pt states single level home, 2 steps to enter/ 2 steps within house and uses FWW to go up 2 steps. Pt states tub/ shower combo with built-in shower seat, but stated the shower seat was small. Pt does not have grab bars in shower, but grab bars are present near toilet. ADL-Prior Level of Function Therapy Code Descriptions/Definitions Functional [place] Measure: 0=Not Assessed/NA 4=Minimal Assistance 1=Total Assistance 5=Supervision or Setup 2=Maximal Assistance 6=Modified [place] 3=Moderate Assistance 7=Complete [place] Therapy Quality Codes: 6 Independent with activity with or without an assistive device 5 Patient requires set up or clean up by helper. Patient completes activity by themselves 4 Supervision or touching assist (CGA). [place] provide cues , steadying assist 3 The helper provides less than half the effort to complete the activity 2 The helper provides more than half the effort to complete the activity 1 Dependent. The helper does all the effort to complete an activity 7 Patient refused to complete or attempt activity 9 The patient did not perform the activity before the current illness or injury 88 Not attempted due to Medical conditions or safety concerns Functional Abilities and Goals: Independent: Patient completed the activities by him/herself, with or without an assistive device, with no assistance from a helper. Needed Some Help: Patient needed partial assistance from another person to complete activities. Dependent: A helper completed the activities for the patient. Unknown: Not Applicable: Self Care: Independent Functional Cognition: Independent DME/Equipment: Bath Chair, Grab Bars (by toilet) DME/Equipment Comments Pt has FWW for functional mobilty, pt completes basic ADLs without AE Occupation: retired Drive Self: No Leisure Interests: word puzzles OT Current Status Subjective Pt seated in chair, c/o 10/10 pain due to L neck pain. Pt stated already had pain medication. Pt agreeable to OT eval and treat. Mental Status/Objective Patient Orientation: Person, Place, Situation Pt stated it was about 6:30pm and dinner should be coming. OT stated it was early afternoon. Pt stated, "Oh my!" and looked outside. Current Glasses/Contacts: Yes Hearing Aids: No Dentures/Partials: No Hand Dominance: Right Upper Extremity ROM WFL Upper Extremity Coordination WFL Upper Extremity Sensation WFL- no c/o tingling/ numbness Upper Extremity Strength 4/5 strength difficulty maintaining strength/ coordination to hold clipboard to sign papers. Edema: not present ADL-Treatment Eating (FIM): 6 (increased time) Eating (QC): 6 Grooming (FIM): 4 (Pt required cues and physical assist for opening wipes for face hygiene. Pt able to complete face hygiene and hand hygiene with increased time.) Oral Hygiene (QC): 5 (s/u) Bathing (FIM): 0 (pt refused shower due to decreased energy) Shower/Bathe Self (QC): 88 Upper Body Dressing (FIM): 0 Upper Body Dressing (QC): 88 Lower Body Dressing (FIM): 4 (min A for brief doning) Lower Body Dressing (QC): 3 On/Off Footwear (QC): 3 Toileting (FIM): 2 (Pt completed breif doffing, requiring wiping assist and assist with pulling breif up completely.) Toileting Hygiene (QC): 2 Transfers (B, C, W/C) (FIM): 4 (CGA) Toilet/Commode Transfer (FIM): 4 (CGA) Toilet Transfer (QC): 4 Tub Transfer (FIM): 4 (CGA) Other Treatments Pt demonstrated decreased energy and declined need for shower or desire to put on shirt/ pants. Pt stated L ankle in pain as well as L side of neck. Pt was offered warm towel, pt refused. Pt educated on contrasting materials and scanning patterns for home use. Pt stated understanding. pt does not utilize AE during ADLs, but completes IND. Pt demonstrated increased time and need for cues for sock donning. Pt educated on sock aide. Pt stated she would not like to use sock yael. Pt completed BUE exercises in order to increase strength and endurance, including shoulder flexion/ abduction, bicep, and hand strengthening (5 reps). Pt utilized commode, requiring CGA for sit to stand and transfer with FWW and safety cues for standing. Pt utilized commode, wound covered on coccyx. Pt stated she has had the wound for "a while"-unable to give time length. Pt transferred to chair with FWW and CGA, left in room in recliner, call light in reach, and all needs met. Education OT Patient Education: Correct positioning, Energy conservation, Exercise program, Modified ADL techniques, Progress toward Goal/Update tx plan, Purpose of tx/functional activities, Rehab process, Safety issues, Transfer techniques, Use of adapted equipment Teaching Recipient: Patient Teaching Methods: Demonstration, Discussion Response to Teaching: Verbalize Understanding, Return Demonstration OT Short Term Goals Short Term Goals Grooming(FIM): 6 Bathing(FIM): 6 Toileting(FIM): 5 Toilet/Commode Transfer(FIM): 5 1=Demonstrate adherence to instructed precautions during ADL tasks. 2=Patient will verbalize/demonstrate understanding of assistive devices/modifications for ADL. 3=Patient will improve strength/tolerance for activity to enable patient to perform ADL's. OT Snf Goals Coal Drier Operator Goals Eating (FIM): 7 Eating (QC): 6 Groomin Oral Hygiene (QC): 6 Bathing(FIM): 6 Shower/Bathe Self (QC): 6 Upper Body Dressing(FIM): 6 Upper Body Dressing (QC): 6 Lower Body Dressing(FIM): 6 Lower Body Dressing (QC): 6 On/Off Footwear (QC): 6 Toileting(FIM): 6 Toileting Hygiene (QC): 6 Transfers (B,C,W/C) (FIM): 6 Toilet/Commode Transfer(FIM): 6 Toilet/Commode Transfer (QC): 6 Tub Transfer(FIM): 5 Shower Transfer(FIM): 5 Additional Goals: 1-Demonstrate ADL Tasks, 2-Verbalize Understanding, 3-ImproveStrength/Bernardo 1=Demonstrate adherence to instructed precautions during ADL tasks. 2=Patient will verbalize/demonstrate understanding of assistive devices/modifications for ADL. 3=Patient will improve strength/tolerance for activity to enable patient to perform ADL's. OT Education/Plan Problem List/Assessment Assessment: Decreased Activ Tolerance, Decreased Safety Aware, Decreased UE Strength, Impaired Bed Mobility, Impaired Coordination, Impaired Funct Balance, Impaired I ADL's, Impaired Self-Care Skills Discharge Recommendations Plan/Recommendations: Continue POC Equpiment Recommendations-D/C: Rails on Tub/Shower, Extended Shower Sprayer, Booth Usher, Dressing Stick, Rails on Toilet Comment D/c recommendations TBD Patient/Family Goals Pt desires to begin walking better and increasing strength to return to previous residence. Treatment Plan/Plan of Care Treatment,Training & Education: Yes Patient would benefit from OT for education, treatment and training to promote independence in ADL's, mobility, safety and/or upper extremity function for ADL's. Plan of Care: ADL Retraining, Caregiver Training, Functional Mobility, Group Exercise/Act as Ind, UE Funct Exercise/Act, Visual/Perceptual Retrain Treatment Duration: Nov 01, 2018 Frequency: 5 times per week Estimated Hrs Per Day: .25 hour per day Agreement: Yes Rehab Potential: Fair Time/GCodes Start Time: 13:00 Stop Time: 13:30 Total Time Billed (hr/min): 30 Billed Treatment Time 1 MARGAM ASMITA MENA OTR Oct 25, 2018 13:46
--- NOTE | 2018-10-25 14:34 | Physical Therapy Evaluation ---
PT Evaluation-General Medical Diagnosis Admission Date Oct 25, 2018 at 12:35 Medical Diagnosis: pneumonia, cepsis Onset Date: Oct 25, 2018 Therapy Diagnosis Therapy Diagnosis: debility/weakness Height/Weight Height (Feet): 5 Height (Inches): 1.00 Weight (Pounds): 162 Weight (Ounces): 0.0 Precautions Precautions/Isolations: Fall Prevention, Standard Precautions Weight Bear Status Right Lower Extremity: Right Weight Bearing/Tolerated Left Lower Extremity: Left Weight Bearing/Tolerated Referral Physician: Fallon Carolina Reason for Referral: Evaluation/Treatment Medical History Pertinent Medical History: DM, HTN, Hypothroidism, Neuropathy Current History SOA x 2 days at home Reviewed History: Yes Social History Home: Single Level Current Living Status: Alone Entry Into Home: Stairs Without Railing PT Steps Into Home: 2 PT Steps Inside Home: 2 Prior/Core FIM Prior Level of Function Therapy Code Descriptions/Definitions Functional [place] Measure: 0=Not Assessed/NA 4=Minimal Assistance 1=Total Assistance 5=Supervision or Setup 2=Maximal Assistance 6=Modified [place] 3=Moderate Assistance 7=Complete [place] Therapy Quality Codes: 6 Independent with activity with or without an assistive device 5 Patient requires set up or clean up by helper. Patient completes activity by themselves 4 Supervision or touching assist (CGA). [place] provide cues , steadying assist 3 The helper provides less than half the effort to complete the activity 2 The helper provides more than half the effort to complete the activity 1 Dependent. The helper does all the effort to complete an activity 7 Patient refused to complete or attempt activity 9 The patient did not perform the activity before the current illness or injury 88 Not attempted due to Medical conditions or safety concerns Functional Abilities and Goals: Independent: Patient completed the activities by him/herself, with or without an assistive device, with no assistance from a helper. Needed Some Help: Patient needed partial assistance from another person to complete activities. Dependent: A helper completed the activities for the patient. Unknown: Not Applicable: Bed Mobility: 6 Transfers (B,C,W/C) (FIM): 6 Gait: 6 Stairs: 2 Indoor Mobility (Ambulation): Independent Stairs: Independent Prior Devices Use: Walker (4WW) PT Evaluation-Current Subjective Patient agrees to PT. No c/o. Pain Numeric Pain Scale: 0-No Pain Location: No Pain Reported Objective Patient Orientation: Normal For Age Problem Solving: Fair Attachments: Oxygen (4L O2 NC), IV ROM/Strength ROM Lower Extremities bilateral LE WFL Strenght Lower Extremities 3+/5 grossly bilateral LE Integumentary/Posture Integumentary refer to nursing notes Bowel Incontinence: No Bladder Incontinence: Yes Posture kyphotic Neuromuscular (Tone, Coordination, Reflexes) grossly intact Sensory Vision: Wears Glasses Hearing: Functional Hand Dominance: Right Sensation Right Lower Extremit: Impaired Sensation Left Lower Extremity: Impaired Transfers Therapy Code Descriptions/Definitions Functional [place] Measure: 0=Not Assessed/NA 4=Minimal Assistance 1=Total Assistance 5=Supervision or Setup 2=Maximal Assistance 6=Modified [place] 3=Moderate Assistance 7=Complete [place] Therapy Quality Codes: 6 Independent with activity with or without an assistive device 5 Patient requires set up or clean up by helper. Patient completes activity by themselves 4 Supervision or touching assist (CGA). [place] provide cues , steadying assist 3 The helper provides less than half the effort to complete the activity 2 The helper provides more than half the effort to complete the activity 1 Dependent. The helper does all the effort to complete an activity 7 Patient refused to complete or attempt activity 9 The patient did not perform the activity before the current illness or injury 88 Not attempted due to Medical conditions or safety concerns Transfers (B, C, W/C) (FIM): 4 Scootin Rollin Roll Left to Right (QC): 4 Supine to/from Sit: 4 Sit to/from Stand: 4 Sit to Lying (QC): 4 Lying to Sitting/Side of Bed(Q: 4 Sit to Stand (QC): 4 Chair/Klj-dt-Hiiel Xfer(QC): 4 Gait Does the Patient Walk?: Yes Mode of Locomotion: Walk Anticipated Mode of Locomotion: Walk Gait (FIM): 2 Distance (FIM): 2=116-33 ft Walk 10 feet (QC): 4 Walk 50 ft with 2 Turns(QC): 4 Walk 150 ft (QC): 88 Distance: 75' Gait Level of Assist: 4 Gait Assistive Device: Walker 4 Wheeled Comments/Gait Description functional gait sequence Balance Sitting Static: Normal Sitting Dynamic: Normal Standing Static: Fair Standing Dynamic: Fair Treatment Ambulation with 4WW 75' CGA for safety with functional gait sequence. Bilateral LE exercises 15 reps each AP, QS, HS, SLR in recliner and LAQ in sit Assessment/Needs 72 y.o. female, will benefit from skilled PT to address functional strength and mobility to improve current LOF to safely return to home at maximum LOF. Rehab Potential: Guarded PT Power Press Tender Goals Power Press Tender Goals PT Power Press Tender Goals Time Frame: Nov 16, 2018 Transfers (B,C,W/C) (FIM): 6 Sit to Lying (QC): 6 Lying-Sitting on Side/Bed(QC): 6 Sit to Stand (QC): 6 Rollin Roll Left to Right (QC): 6 Chair/Rqo-xv-Wwchp Xfer(QC): 6 Car Transfer (QC): 6 Does the Patient Walk: Yes Gait (FIM): 6 Gait distance (FIM): 3=150 ft Distance: 150' Walk 10 feet (QC): 6 Walk 10ft-Uneven Surface(QC): 6 Walk 50ft with 2 Turns (QC): 6 Walk 150 ft (QC): 6 Gait Level of Assist: 6 Gait Assistive Device: Walker 4 Wheeled Stairs (FIM): 2 # of Steps: 2 1 Step (curb) (QC): 5 Stairs Level Of Assist: 5 PT Plan Problem List Problem List: Activity Tolerance, Functional Strength, Safety, Balance, Gait, Transfer, Bed Mobility Treatment/Plan Treatment Plan: Continue Plan of Care Treatment Plan: Bed Mobility, Education, Functional Activity Bernardo, Functional Strength, Gait, Safety, Therapeutic Exercise, Transfers Treatment Duration: Nov 16, 2018 Frequency: 6 times per week Estimated Hrs Per Day: .25 hour per day Patient and/or Family Agrees t: Yes Time/GCodes Time In: 1400 Time Out: 1423 Total Billed Treatment Time: 23 Total Billed Treatment 1 visit Elpidio 8 min FA 15 min LUCAS SINGLETARY PT Oct 25, 2018 14:34
[2018-10-25] MEDS: RT-ALBUTEROL/IPRATROPIUM 3 ML (DUONEB) VIAL INH SCH ×2 (14:39→19:53)
[2018-10-25] MEDS: inSUlin ASPART (NovoLOG) 1 UNIT/0.01 ML (CHARGE PER UNIT) SC SCH ×2 (16:36→21:51)
[2018-10-25] MEDS: ASPIRIN E.C. 81 MG (ECOTRIN) TAB PO SCH (17:05)
[2018-10-25] MEDS ORDERED: HYDROcodone/APAP 7.5 MG/325 MG (LORTAB, LORCET PLUS) TABLET PO PRN (17:30)
--- NOTE | 2018-10-25 18:21 | Wound Care Assessment ---
Wound Care Assessment Date Seen by Provider: Oct 25, 2018 Time Seen by Provider: 18:18 Chief Complaint Sacral ulcer. HPI The patient is a 72 year old female with decreased mobility, metastatic breast cancer, and a sacral pressure ulcer. The wound appears improved on present dressing, bordered foam. We will continue the same. Past Medical History: Admits Cancer, Treaments (Breast cancer, metastatic.) Review of Systems Pulmonary: No Dyspnea Cardiovascular: No: Chest Pain Exam Vital Signs Date Time Temp Pulse Resp B/P (MAP) Pulse Ox O2 Delivery O2 Flow Rate FiO2 10/25/18 14:40 94 Nasal Cannula 3.00 10/25/18 12:00 97.5 94 20 126/79 (95) Capillary Refill : General Appearance: no apparent distress Back: other (Sacral ulcer -- 1.0 x 0.6 x 0.2 cm, base 50% fibrin, 50% regenerating tissue.) Assessment/Plan/Dx 1. Stage 2 pressure ulcer of sacral area. 2. Metastatic breast cancer. 3. Pneumonia. Plan: Bordered foam dressing. HOLLI DELGADO MD Oct 25, 2018 18:21
[2018-10-25] MEDS: MONTELUKAST 10 MG (SINGULAIR) TAB PO SCH (20:24)
[2018-10-25] MEDS: PANTOPRAZOLE 40 MG (PROTONIX) TAB PO SCH (20:24)
[2018-10-25] MEDS: MAGNESIUM OXIDE (MAG-OX)400 MG TAB PO SCH (20:24)
[2018-10-25] MEDS: morphine ER 15 MG (MS CONTIN) TAB PO SCH (20:24)
[2018-10-25] MEDS: SERTRALINE 50 MG (ZOLOFT) TABLET PO SCH (20:25)
[2018-10-26 05:26] VITALS: BP 149/80
[2018-10-26] MEDS: inSUlin ASPART (NovoLOG) 1 UNIT/0.01 ML (CHARGE PER UNIT) SC SCH ×4 (06:10→21:27)
[2018-10-26] MEDS: PANTOPRAZOLE 40 MG (PROTONIX) TAB PO SCH ×2 (06:10→20:08)
[2018-10-26] MEDS: ceFAZolin INJECTION 1,000 MG in WATER (STERILE) FOR INJECTION 10 ML IV SCH ×3 (06:10→21:27)
[2018-10-26] MEDS: metFORMIN XR 500 MG (GLUCOPHAGE XR) TAB PO SCH (06:11)
[2018-10-26] MEDS: LEVOTHYROXINE 125 MCG (LEVOTHROID) TABLET PO SCH (06:11)
[2018-10-26] MEDS: KCL 20 MEQ TAB (K-DUR) PO SCH (06:11)
[2018-10-26 06:21] LABS: HEMOGLOBIN 8.1 G/DL (11.5-16.0); MEAN PLATELET VOLUME 10.4 FL (7.4-10.4); RED CELL DISTRIBUTION WIDTH 18.5 % (10.0-14.5); WHITE BLOOD COUNT 6.8 10^3/uL (4.3-11.0)
[2018-10-26 06:40] LABS: BUN/CREATININE RATIO 11; CALCIUM 8.9 MG/DL (8.5-10.1); CARBON DIOXIDE 33 MMOL/L (21-32); CHLORIDE 96 MMOL/L (98-107); CREATININE SERUM 0.55 MG/DL (0.60-1.30); GFR ESTIMATED > 60; GLUCOSE 220 MG/DL (70-105); POTASSIUM 3.8 MMOL/L (3.6-5.0); SODIUM 137 MMOL/L (135-145)
[2018-10-26] MEDS: RT-ALBUTEROL/IPRATROPIUM 3 ML (DUONEB) VIAL INH SCH ×4 (07:03→19:40)
[2018-10-26] MEDS: LACTATED RINGERS 1,000 ML IV SCH ×3 (10:01→20:13)
[2018-10-26] MEDS: MAGNESIUM OXIDE (MAG-OX)400 MG TAB PO SCH ×2 (10:03→20:08)
[2018-10-26] MEDS: morphine ER 15 MG (MS CONTIN) TAB PO SCH ×2 (10:03→20:09)
[2018-10-26] MEDS: GABAPENTIN 300 MG (NEURONTIN) CAP PO SCH ×3 (10:03→20:08)
[2018-10-26] MEDS: DICYCLOMINE 10 MG (BENTYL) CAP PO SCH ×4 (10:05→20:08)
[2018-10-26] MEDS ORDERED: NON-FORMULARY MEDICATION 1 EA EA (Mirabegron (Myrbetriq) 50 MG) PO SCH (12:00)
[2018-10-26] MEDS: VITAMIN D3 1,000 UNITS (CHOLECALCIFEROL) TABLET PO SCH (12:14)
--- NOTE | 2018-10-26 14:32 | Physical Therapy Daily Note ---
PT Daily Note-Current Subjective Pt agreeable to PT session with encouragement required Pain Numeric Pain Scale: 0-No Pain Appearance Pt in bed easily aroused upon arrival. Pt sitting up in recliner at end of session, assist to order lunch, call light and bedside table within reach, phone in hand Mental Status Patient Orientation: Person, Place, Time, Eyes Open, Situation Attachments: Oxygen, IV Transfers Therapy Code Descriptions/Definitions Functional [place] Measure: 0=Not Assessed/NA 4=Minimal Assistance 1=Total Assistance 5=Supervision or Setup 2=Maximal Assistance 6=Modified [place] 3=Moderate Assistance 7=Complete [place] Therapy Quality Codes: 6 Independent with activity with or without an assistive device 5 Patient requires set up or clean up by helper. Patient completes activity by themselves 4 Supervision or touching assist (CGA). [place] provide cues , steadying assist 3 The helper provides less than half the effort to complete the activity 2 The helper provides more than half the effort to complete the activity 1 Dependent. The helper does all the effort to complete an activity 7 Patient refused to complete or attempt activity 9 The patient did not perform the activity before the current illness or injury 88 Not attempted due to Medical conditions or safety concerns Transfers (B, C, W/C) (FIM): 4 Scootin Rollin Supine to/from Sit: 4 Sit to/from Stand: 5 skilled instruction required for hand placement and safety from EOB, chair, BSC Weight Bearing Right Lower Extremity: Right Weight Bearing/Tolerated Left Lower Extremity: Left Weight Bearing/Tolerated Gait Training Does the Patient Walk?: Yes Gait (FIM): 1 Distance (FIM): 1=up to 49 ft Distance: 42 Gait Level of Assist: 5 Gait Persons Needed: 1 Gait Assistive Device: FWW kyphotic, slow pace, decreased step length and height Exercises Seated Therapy Exercises: Ankle pumps, Long arc quads, Hip flexion Seated Reps: 10 Treatments bed mobility, transfers, safety, education, gait, activity tolerance, functional mobility, strength, balance Assessment Current Status: Good Progress PT [place] Goals Senior Living Goals PT [place] Goals Time Frame: Nov 16, 2018 Transfers (B,C,W/C) (FIM): 6 Sit to Lying (QC): 6 Lying-Sitting on Side/Bed(QC): 6 Sit to Stand (QC): 6 Rollin Roll Left to Right (QC): 6 Chair/Tlg-mr-Busvu Xfer(QC): 6 Car Transfer (QC): 6 Does the Patient Walk: Yes Gait (FIM): 6 Gait distance (FIM): 3=150 ft Distance: 150' Walk 10 feet (QC): 6 Walk 10ft-Uneven Surface(QC): 6 Walk 50ft with 2 Turns (QC): 6 Walk 150 ft (QC): 6 Gait Level of Assist: 6 Gait Assistive Device: Walker 4 Wheeled Stairs (FIM): 2 # of Steps: 2 1 Step (curb) (QC): 5 Stairs Level Of Assist: 5 PT Plan Treatment/Plan Treatment Plan: Continue Plan of Care Treatment Plan: Bed Mobility, Education, Functional Activity Bernardo, Functional Strength, Gait, Safety, Therapeutic Exercise, Transfers Treatment Duration: Nov 16, 2018 Frequency: 6 times per week Estimated Hrs Per Day: .25 hour per day Patient and/or Family Agrees t: Yes Safety Risks/Education Patient Education: Gait Training, Transfer Techniques, Safety Issues Teaching Recipient: Patient Teaching Methods: Demonstration, Discussion Response to Teaching: Verbalize Understanding, Return Demonstration Time/GCodes Time In: 1237 Time Out: 1300 Total Billed Treatment Time: 23 Total Billed Treatment 1 visit, FA x1 unit, GT x1 unit SONG TA PTA Oct 26, 2018 14:32
[2018-10-26] MEDS: ENOXAPARIN 40 MG/0.4 ML (LOVENOX) SYR SQ SCH (16:01)
[2018-10-26] MEDS: ASPIRIN E.C. 81 MG (ECOTRIN) TAB PO SCH (17:30)
[2018-10-26 18:20] VITALS: BP 132/71
[2018-10-26] MEDS: SERTRALINE 50 MG (ZOLOFT) TABLET PO SCH (20:08)
[2018-10-26] MEDS: MONTELUKAST 10 MG (SINGULAIR) TAB PO SCH (20:08)
[2018-10-27 04:34] VITALS: BP 129/70
[2018-10-27 06:00] VITALS: BP 129/70
[2018-10-27] MEDS: LEVOTHYROXINE 125 MCG (LEVOTHROID) TABLET PO SCH (06:02)
[2018-10-27] MEDS: KCL 20 MEQ TAB (K-DUR) PO SCH (06:02)
[2018-10-27] MEDS: ceFAZolin INJECTION 1,000 MG in WATER (STERILE) FOR INJECTION 10 ML IV SCH ×3 (06:02→21:22)
[2018-10-27] MEDS: PANTOPRAZOLE 40 MG (PROTONIX) TAB PO SCH ×2 (06:02→20:06)
[2018-10-27] MEDS: metFORMIN XR 500 MG (GLUCOPHAGE XR) TAB PO SCH (06:02)
[2018-10-27] MEDS: inSUlin ASPART (NovoLOG) 1 UNIT/0.01 ML (CHARGE PER UNIT) SC SCH ×5 (06:02→21:22)
[2018-10-27] MEDS: LACTATED RINGERS 1,000 ML IV SCH ×2 (06:03→16:10)
[2018-10-27] MEDS: RT-ALBUTEROL/IPRATROPIUM 3 ML (DUONEB) VIAL INH SCH (06:32)
[2018-10-27] MEDS: SENNA W/DOCUSATE (SENOKOT S) TABLET PO SCH ×2 (08:49→20:08)
[2018-10-27] MEDS: DICYCLOMINE 10 MG (BENTYL) CAP PO SCH ×4 (08:50→20:06)
[2018-10-27] MEDS: GABAPENTIN 300 MG (NEURONTIN) CAP PO SCH ×3 (08:51→20:07)
[2018-10-27] MEDS: MAGNESIUM OXIDE (MAG-OX)400 MG TAB PO SCH ×2 (08:51→20:06)
[2018-10-27] MEDS: morphine ER 15 MG (MS CONTIN) TAB PO SCH ×2 (08:52→20:07)
[2018-10-27 10:21] VITALS: BP 129/70
[2018-10-27] MEDS: VITAMIN D3 1,000 UNITS (CHOLECALCIFEROL) TABLET PO SCH (12:53)
[2018-10-27] MEDS: ENOXAPARIN 40 MG/0.4 ML (LOVENOX) SYR SQ SCH (16:11)
[2018-10-27] MEDS: ASPIRIN E.C. 81 MG (ECOTRIN) TAB PO SCH (16:14)
[2018-10-27 17:40] VITALS: BP 121/65
[2018-10-27] MEDS: SERTRALINE 50 MG (ZOLOFT) TABLET PO SCH (20:07)
[2018-10-27] MEDS: MONTELUKAST 10 MG (SINGULAIR) TAB PO SCH (20:08)
[2018-10-28] MEDS: LACTATED RINGERS 1,000 ML IV SCH ×2 (02:23→20:46)
[2018-10-28 05:44] VITALS: BP 140/83
[2018-10-28] MEDS: LEVOTHYROXINE 125 MCG (LEVOTHROID) TABLET PO SCH (06:08)
[2018-10-28] MEDS: ceFAZolin INJECTION 1,000 MG in WATER (STERILE) FOR INJECTION 10 ML IV SCH ×3 (06:08→20:48)
[2018-10-28] MEDS: inSUlin ASPART (NovoLOG) 1 UNIT/0.01 ML (CHARGE PER UNIT) SC SCH ×4 (06:08→19:51)
[2018-10-28] MEDS: metFORMIN XR 500 MG (GLUCOPHAGE XR) TAB PO SCH (06:08)
[2018-10-28] MEDS: PANTOPRAZOLE 40 MG (PROTONIX) TAB PO SCH ×2 (06:08→20:47)
[2018-10-28] MEDS: KCL 20 MEQ TAB (K-DUR) PO SCH (06:08)
[2018-10-28] MEDS: DICYCLOMINE 10 MG (BENTYL) CAP PO SCH ×4 (08:01→20:47)
[2018-10-28] MEDS: morphine ER 15 MG (MS CONTIN) TAB PO SCH ×2 (08:02→20:47)
[2018-10-28] MEDS: MAGNESIUM OXIDE (MAG-OX)400 MG TAB PO SCH ×2 (08:02→20:47)
[2018-10-28] MEDS: SENNA W/DOCUSATE (SENOKOT S) TABLET PO SCH ×2 (08:02→20:47)
[2018-10-28] MEDS: GABAPENTIN 300 MG (NEURONTIN) CAP PO SCH ×3 (08:02→20:47)
--- NOTE | 2018-10-28 11:25 | Physical Therapy Daily Note ---
PT Daily Note-Current Subjective Patient agrees to PT. C/o right ankle stiffness. RN is aware. Pain Numeric Pain Scale: 5-Moderate Pain Location: Right Location Body Site: Ankle Pain Description: Chronic Mental Status Patient Orientation: Normal For Age Attachments: Oxygen, IV Transfers Therapy Code Descriptions/Definitions Functional [place] Measure: 0=Not Assessed/NA 4=Minimal Assistance 1=Total Assistance 5=Supervision or Setup 2=Maximal Assistance 6=Modified [place] 3=Moderate Assistance 7=Complete [place] Therapy Quality Codes: 6 Independent with activity with or without an assistive device 5 Patient requires set up or clean up by helper. Patient completes activity by themselves 4 Supervision or touching assist (CGA). [place] provide cues , steadying assist 3 The helper provides less than half the effort to complete the activity 2 The helper provides more than half the effort to complete the activity 1 Dependent. The helper does all the effort to complete an activity 7 Patient refused to complete or attempt activity 9 The patient did not perform the activity before the current illness or injury 88 Not attempted due to Medical conditions or safety concerns Transfers (B, C, W/C) (FIM): 5 Scootin Sit to/from Stand: 5 Sit to Stand (QC): 5 Weight Bearing Right Lower Extremity: Right Weight Bearing/Tolerated Left Lower Extremity: Left Weight Bearing/Tolerated Gait Training Does the Patient Walk?: Yes Gait (FIM): 5 Distance (FIM): 3=150 ft Distance: 200' Walk 10 feet (QC): 5 Walk 50 ft with 2 Turns(QC): 5 Walk 150 ft (QC): 5 Gait Level of Assist: 5 Gait Assistive Device: Walker 4 Wheeled safe and functional with no deviation Exercises Supine Ex: Ankle pumps, Quad Set, Heel Slides, Straight leg raise Supine Reps: 15 Seated Therapy Exercises: Ankle pumps, Long arc quads Seated Reps: 15 Assessment Patient tolerated treatment well and remains up in recliner with needs met. Patient has caregiver at home to assist with ADL's and mobility. PT Recordak Operator Goals Recordak Operator Goals PT Fpc Goals Time Frame: Nov 16, 2018 Transfers (B,C,W/C) (FIM): 6 Sit to Lying (QC): 6 Lying-Sitting on Side/Bed(QC): 6 Sit to Stand (QC): 6 Rollin Roll Left to Right (QC): 6 Chair/Uhu-dc-Ungzb Xfer(QC): 6 Car Transfer (QC): 6 Does the Patient Walk: Yes Gait (FIM): 6 Gait distance (FIM): 3=150 ft Distance: 150' Walk 10 feet (QC): 6 Walk 10ft-Uneven Surface(QC): 6 Walk 50ft with 2 Turns (QC): 6 Walk 150 ft (QC): 6 Gait Level of Assist: 6 Gait Assistive Device: Walker 4 Wheeled Stairs (FIM): 2 # of Steps: 2 1 Step (curb) (QC): 5 Stairs Level Of Assist: 5 PT Plan Treatment/Plan Treatment Plan: Continue Plan of Care Treatment Plan: Bed Mobility, Education, Functional Activity Bernardo, Functional Strength, Gait, Safety, Therapeutic Exercise, Transfers Treatment Duration: Nov 16, 2018 Frequency: 6 times per week Estimated Hrs Per Day: .25 hour per day Patient and/or Family Agrees t: Yes Time/GCodes Time In: 1037 Time Out: 1100 Total Billed Treatment Time: 23 Total Billed Treatment 1 visit EX 10 min GT 13 min LUCAS SINGLETARY PT Oct 28, 2018 11:25
[2018-10-28] MEDS: VITAMIN D3 1,000 UNITS (CHOLECALCIFEROL) TABLET PO SCH (11:52)
--- NOTE | 2018-10-28 12:11 | Occupational Ther Daily Note ---
OT Current Status-Daily Note Subjective Pt seen in recliner chair, 02 on and worn through session. Pt agreeable to OT tx session, stating minimal pain through R ankle and L neck, no pain rating given. Mental Status/Objective Patient Orientation: Person, Place, Time, Normal For Age Therapy Code Descriptions/Definitions Functional [place] Measure: 0=Not Assessed/NA 4=Minimal Assistance 1=Total Assistance 5=Supervision or Setup 2=Maximal Assistance 6=Modified [place] 3=Moderate Assistance 7=Complete [place] Attachments: IV ADL-Treatment Therapy Code Descriptions/Definitions Functional [place] Measure: 0=Not Assessed/NA 4=Minimal Assistance 1=Total Assistance 5=Supervision or Setup 2=Maximal Assistance 6=Modified [place] 3=Moderate Assistance 7=Complete [place] Therapy Quality Codes: 6 Independent with activity with or without an assistive device 5 Patient requires set up or clean up by helper. Patient completes activity by themselves 4 Supervision or touching assist (CGA). [place] provide cues , steadying assist 3 The helper provides less than half the effort to complete the activity 2 The helper provides more than half the effort to complete the activity 1 Dependent. The helper does all the effort to complete an activity 7 Patient refused to complete or attempt activity 9 The patient did not perform the activity before the current illness or injury 88 Not attempted due to Medical conditions or safety concerns Grooming (FIM): 5 (s/u for face hygiene) Bathing (FIM): 3 (sponge bath on this date. Pt required assist with s/u for wipes, pt assisted with back and bilateral feet for thorough washing.) Shower/Bathe Self (QC): 3 Upper Body (FIM): 4 (Pt required min A for tying gown in back.) Upper Body Dressing (QC): 3 Lower Body Dressing (FIM): 3 (Pt required assist threading 1 foot. Pt able to pull up past waist.) Lower Body Dressing (QC): 3 On/Off Footwear (QC): 4 (Pt doffed both socks, pt required cues and min A for sock donning.) Other Treatment Pt desired sponge bath on this date. Pt educated on energy conservation while dressing and rehab process. Pt completed sponge bath, standing with SBA and use of FWW for sit to stand during maria de jesus hygiene. Pt sat in recliner chair end of session, all needs met and call light in reach. Education OT Patient Education: Correct positioning, Energy conservation, Modified ADL techniques, Purpose of tx/functional activities, Rehab process, Safety issues, Transfer techniques Teaching Recipient: Patient Teaching Methods: Demonstration, Discussion Response to Teaching: Verbalize Understanding, Return Demonstration OT Short Term Goals Short Term Goals Grooming(FIM): 6 Bathing(FIM): 6 Toileting(FIM): 5 Toilet/Commode Transfer(FIM): 5 1=Demonstrate adherence to instructed precautions during ADL tasks. 2=Patient will verbalize/demonstrate understanding of assistive devices/modifications for ADL. 3=Patient will improve strength/tolerance for activity to enable patient to p erform ADL's. OT Penitentiary Goals Penitentiary Goals Eating (FIM): 7 Eating (QC): 6 Groomin Oral Hygiene (QC): 6 Bathing(FIM): 6 Shower/Bathe Self (QC): 6 Upper Body Dressing(FIM): 6 Upper Body Dressing (QC): 6 Lower Body Dressing(FIM): 6 Lower Body Dressing (QC): 6 On/Off Footwear (QC): 6 Toileting(FIM): 6 Toileting Hygiene (QC): 6 Transfers (B,C,W/C) (FIM): 6 Toilet/Commode Transfer(FIM): 6 Toilet/Commode Transfer (QC): 6 Tub Transfer(FIM): 5 Shower Transfer(FIM): 5 Additional Goals: 1-Demonstrate ADL Tasks, 2-Verbalize Understanding, 3- ImproveStrength/Bernardo 1=Demonstrate adherence to instructed precautions during ADL tasks. 2=Patient will verbalize/demonstrate understanding of assistive devices/mod ifications for ADL. 3=Patient will improve strength/tolerance for activity to enable patient to perform ADL's. OT Education/Plan Problem List/Assessment Assessment: Decreased Activ Tolerance, Decreased Safety Aware, Decreased UE Strength, Impaired I ADL's, Impaired Self-Care Skills Discharge Recommendations Plan/Recommendations: Continue POC Comment Therapy d/c recommendations TBD. Treatment Plan/Plan of Care Treatment,Training & Education: Yes Patient would benefit from OT for education, treatment and training to promote independence in ADL's, mobility, safety and/or upper extremity function for ADL's. Plan of Care: ADL Retraining, Caregiver Training, Functional Mobility, Group Exercise/Act as Ind, UE Funct Exercise/Act, Visual/Perceptual Retrain Treatment Duration: Nov 01, 2018 Frequency: 5 times per week Estimated Hrs Per Day: .25 hour per day Agreement: Yes Rehab Potential: Guarded Time/GCodes Start Time: 11:15 Stop Time: 11:40 Total Time Billed (hr/min): 25 Billed Treatment Time 1 ADL x2 ASMITA MARTE OTR Oct 28, 2018 12:11
--- NOTE | 2018-10-28 14:10 | NUR ---
Pastoral care visit.
[2018-10-28] MEDS: ENOXAPARIN 40 MG/0.4 ML (LOVENOX) SYR SQ SCH (15:41)
--- NOTE | 2018-10-28 16:35 | Progress Note ---
Subjective Subjective/Events-last exam Patient doing well this AM. Working with OT and dressing self. Breathing comfortable on home oxygen. Review of Systems Pulmonary: Cough Cardiovascular: No: Chest Pain, Palpitations Gastrointestinal: No: Nausea, Vomiting, Abdominal Pain Genitourinary: No Dysuria, No Frequency Neurological: Weakness Objective Exam Last Set of Vital Signs Vital Signs Date Time Temp Pulse Resp B/P (MAP) Pulse Ox O2 Delivery O2 Flow Rate FiO2 10/28/18 08:00 93 Nasal Cannula 3.00 10/28/18 05:44 37.38950 86 18 140/83 (102) Capillary Refill : NONELess Than 3 Seconds I&O Intake and Output 10/28/18 00:00 Intake Total 2960 ml Output Total 850 ml Balance 2110 ml Intake Oral 930 ml IV Total 2030 ml Output Urine Total 850 ml # Voids 4 # Bowel Movements 2 General: Alert, Oriented X3, Cooperative, No Acute Distress Lungs: Clear to Auscultation, Normal Air Movement Heart: Regular Rate, No Murmurs Abdomen: Normal Bowel Sounds, Soft, No Tenderness, No Masses Extremities: Other (1+ pitting edema bilaterally) Skin: No Rashes, No Breakdown Psych/Mental Status: Mental Status NL, Mood NL Results/Procedures Lab Laboratory Tests 10/27/18 20:28: Glucometer 212H 10/28/18 05:41: Glucometer 187H 10/28/18 10:56: Glucometer 255H 10/28/18 16:07: Glucometer 201H Assessment/Plan Assessment/Plan (1) CAP (community acquired pneumonia) Status: Acute Assessment & Plan: - Needs 10 days total of IV antibiotics, continue SWB status until completion Qualifiers: (2) Diabetes mellitus, type 2 Status: Chronic Assessment & Plan: - SSI Qualifiers: Qualified Codes: E11.65 - Type 2 diabetes mellitus with hyperglycemia; Z79.4 - MCFP (current) use of insulin (3) Respiratory failure with hypoxia Status: Chronic Assessment & Plan: - Patient comfortable on home oxygen, will complete antibiotics Clinical Quality Measures DVT/VTE Risk/Contraindication: Risk Factor Score Per Nursin JOHNNY GARZON MD Oct 28, 2018 16:35
[2018-10-28] MEDS: ASPIRIN E.C. 81 MG (ECOTRIN) TAB PO SCH (17:02)
[2018-10-28 18:00] VITALS: BP 143/73
[2018-10-28] MEDS: MONTELUKAST 10 MG (SINGULAIR) TAB PO SCH (20:47)
[2018-10-28] MEDS: SERTRALINE 50 MG (ZOLOFT) TABLET PO SCH (20:47)
[2018-10-29 05:03] VITALS: BP 140/70
[2018-10-29] MEDS: LACTATED RINGERS 1,000 ML IV SCH ×2 (06:11→14:07)
[2018-10-29] MEDS: inSUlin ASPART (NovoLOG) 1 UNIT/0.01 ML (CHARGE PER UNIT) SC SCH ×4 (06:11→21:57)
[2018-10-29] MEDS: PANTOPRAZOLE 40 MG (PROTONIX) TAB PO SCH ×2 (06:11→21:56)
[2018-10-29] MEDS: metFORMIN XR 500 MG (GLUCOPHAGE XR) TAB PO SCH (06:11)
[2018-10-29] MEDS: ceFAZolin INJECTION 1,000 MG in WATER (STERILE) FOR INJECTION 10 ML IV SCH ×3 (06:11→21:57)
[2018-10-29] MEDS: LEVOTHYROXINE 125 MCG (LEVOTHROID) TABLET PO SCH (06:11)
[2018-10-29] MEDS: KCL 20 MEQ TAB (K-DUR) PO SCH (06:12)
[2018-10-29 08:00] VITALS: BP 155/85
--- NOTE | 2018-10-29 08:29 | Wound Care Assessment ---
Wound Care Assessment Date Seen by Provider: Oct 29, 2018 Time Seen by Provider: 08:10 Chief Complaint Sacral ulcer. HPI The patient is a 72 year old female with decreased mobility, metastatic breast cancer, and a sacral pressure ulcer. The wound appears improved on present dressing, bordered foam. We will continue the same. 10/29/18 Interval Note: No complaint. Lying on back on entry to patient room. Urged to Off-load. Dressing just changed by nurse; wound much improved by report. Past Medical History: Admits Cancer, Treaments (Breast cancer, metastatic.) Review of Systems Pulmonary: No Dyspnea Cardiovascular: No: Chest Pain Other systems PFSH -- No interval change. Exam Vital Signs Date Time Temp Pulse Resp B/P (MAP) Pulse Ox O2 Delivery O2 Flow Rate FiO2 10/29/18 08:00 36.6 89 18 155/85 93 Nasal Cannula 3.00 Capillary Refill : NONELess Than 3 Seconds General Appearance: no apparent distress HEENT: normal ENT inspection Back: other (Sacral area -- dressing intact.) Results Laboratory Tests 10/28/18 10:56: Glucometer 255H 10/28/18 16:07: Glucometer 201H 10/28/18 19:49: Glucometer 142H 10/29/18 05:14: Glucometer 248H Assessment/Plan/Dx 1. Stage 2 pressure ulcer of sacral area, improving. 2. Metastatic breast cancer. 3. Pneumonia. Plan: Bordered foam dressing. HOLLI DELGDAO MD Oct 29, 2018 08:29
[2018-10-29] MEDS: SENNA W/DOCUSATE (SENOKOT S) TABLET PO SCH ×2 (09:31→21:56)
[2018-10-29] MEDS: GABAPENTIN 300 MG (NEURONTIN) CAP PO SCH ×3 (09:31→21:56)
[2018-10-29] MEDS: morphine ER 15 MG (MS CONTIN) TAB PO SCH ×2 (09:31→21:56)
[2018-10-29] MEDS: DICYCLOMINE 10 MG (BENTYL) CAP PO SCH ×4 (09:31→21:56)
[2018-10-29] MEDS: MAGNESIUM OXIDE (MAG-OX)400 MG TAB PO SCH ×2 (09:31→21:56)
--- NOTE | 2018-10-29 10:10 | NUR ---
Pt is single and has no children or family. She relies on her part-time [employer] caregiver Yelitzadacia Leonard who is authorized to provide care 28 hours a week. Pt also recently began receiving [facility]. Since pt has progressive disease, Yelitza Aisha indicates that pt's need for care have increased. Request was made for additional paid hours to ensure pt can remain in her own home where she lives alone. Her caregiver lives next door and checks on her frequently. She is interviewing additional caregivers.
--- NOTE | 2018-10-29 11:35 | Physical Therapy Daily Note ---
PT Daily Note-Current Subjective Patient agrees to PT. Pain Numeric Pain Scale: 0-No Pain Location: No Pain Reported Mental Status Patient Orientation: Normal For Age Attachments: Oxygen, IV Transfers Therapy Code Descriptions/Definitions Functional [place] Measure: 0=Not Assessed/NA 4=Minimal Assistance 1=Total Assistance 5=Supervision or Setup 2=Maximal Assistance 6=Modified [place] 3=Moderate Assistance 7=Complete [place] Therapy Quality Codes: 6 Independent with activity with or without an assistive device 5 Patient requires set up or clean up by helper. Patient completes activity by themselves 4 Supervision or touching assist (CGA). [place] provide cues , steadying assist 3 The helper provides less than half the effort to complete the activity 2 The helper provides more than half the effort to complete the activity 1 Dependent. The helper does all the effort to complete an activity 7 Patient refused to complete or attempt activity 9 The patient did not perform the activity before the current illness or injury 88 Not attempted due to Medical conditions or safety concerns Transfers (B, C, W/C) (FIM): 6 Scootin Sit to/from Stand: 6 Sit to Stand (QC): 6 Weight Bearing Right Lower Extremity: Right Weight Bearing/Tolerated Left Lower Extremity: Left Weight Bearing/Tolerated Gait Training Does the Patient Walk?: Yes Gait (FIM): 6 Distance (FIM): 3=150 ft Distance: 225' Walk 10 feet (QC): 6 Walk 50 ft with 2 Turns(QC): 6 Walk 150 ft (QC): 6 Gait Level of Assist: 6 Gait Assistive Device: Walker 4 Wheeled safe and functional Exercises Supine Ex: Ankle pumps, Quad Set, Heel Slides, Straight leg raise Supine Reps: 15 Seated Therapy Exercises: Ankle pumps, Long arc quads Seated Reps: 15 Assessment Patient tolerated treatment well and remained up in recliner with needs met. PT Pre Press Operator Goals Nursing Home Goals PT Pre Press Operator Goals Time Frame: Nov 16, 2018 Transfers (B,C,W/C) (FIM): 6 Sit to Lying (QC): 6 Lying-Sitting on Side/Bed(QC): 6 Sit to Stand (QC): 6 Rollin Roll Left to Right (QC): 6 Chair/Znt-zl-Ghwcy Xfer(QC): 6 Car Transfer (QC): 6 Does the Patient Walk: Yes Gait (FIM): 6 Gait distance (FIM): 3=150 ft Distance: 150' Walk 10 feet (QC): 6 Walk 10ft-Uneven Surface(QC): 6 Walk 50ft with 2 Turns (QC): 6 Walk 150 ft (QC): 6 Gait Level of Assist: 6 Gait Assistive Device: Walker 4 Wheeled Stairs (FIM): 2 # of Steps: 2 1 Step (curb) (QC): 5 Stairs Level Of Assist: 5 PT Plan Treatment/Plan Treatment Plan: Continue Plan of Care Treatment Plan: Bed Mobility, Education, Functional Activity Bernardo, Functional Strength, Gait, Safety, Therapeutic Exercise, Transfers Treatment Duration: Nov 16, 2018 Frequency: 6 times per week Estimated Hrs Per Day: .25 hour per day Patient and/or Family Agrees t: Yes Time/GCodes Time In: 1057 Time Out: 1120 Total Billed Treatment Time: 23 Total Billed Treatment 1 visit EX 12 min GT 11 min LUCAS SINGLETARY PT Oct 29, 2018 11:35
[2018-10-29] MEDS: VITAMIN D3 1,000 UNITS (CHOLECALCIFEROL) TABLET PO SCH (11:44)
[2018-10-29 12:02] VITALS: BP 149/72
--- NOTE | 2018-10-29 12:04 | Occupational Ther Daily Note ---
OT Current Status-Daily Note Subjective Pt seen in recliner chair. No c/o pain, pt stated "it still hurts a little," when OT asked about ankle. Pt stated walking on it with PT helped the pain this morning. Pt agreeable to OT tx session. Mental Status/Objective Patient Orientation: Normal For Age Therapy Code Descriptions/Definitions Functional [place] Measure: 0=Not Assessed/NA 4=Minimal Assistance 1=Total Assistance 5=Supervision or Setup 2=Maximal Assistance 6=Modified [place] 3=Moderate Assistance 7=Complete [place] Attachments: IV, Oxygen ADL-Treatment Therapy Code Descriptions/Definitions Functional [place] Measure: 0=Not Assessed/NA 4=Minimal Assistance 1=Total Assistance 5=Supervision or Setup 2=Maximal Assistance 6=Modified [place] 3=Moderate Assistance 7=Complete [place] Therapy Quality Codes: 6 Independent with activity with or without an assistive device 5 Patient requires set up or clean up by helper. Patient completes activity by themselves 4 Supervision or touching assist (CGA). [place] provide cues , steadying assist 3 The helper provides less than half the effort to complete the activity 2 The helper provides more than half the effort to complete the activity 1 Dependent. The helper does all the effort to complete an activity 7 Patient refused to complete or attempt activity 9 The patient did not perform the activity before the current illness or injury 88 Not attempted due to Medical conditions or safety concerns Eating (FIM): 4 (Pt demonstrated intention tremors and decreased strength with eating utensils, unable to gather food onto fork with increased time and trials. Pt educated on modified eating technique with hand over hand demonstration. Pt return-demonstrated technique 2/2 times with accuracy.) Eating (QC): 3 Grooming (FIM): 5 (SBA for face washing) Oral Hygiene (QC): 5 (SBA for tooth brushing at sink. Pt utilized FWW for ambulation. Pt demosntrated increased intention tremors while applying toothpaste. Able to complete with increased time and effort. ) Transfers (B, C, W/C) (FIM): 4 (CGA with sit to stand. ) Other Treatment Pt demonstrated intention tremors during tasks of oral hygiene and eating, increasing time and trials needed to complete. Pt stated her tremors come about while completing tasks and sometimes interfere with eating. Pt returned to recliner chair with food set on tray. Pt grabbed wrong utensils 2x during s/u due to poor vision. Pt completed ketchup application by utilizing fork to open. Pt unable to gather strength/ coordination to gather eggs with fork from plate. Pt educated on skilled modified eating technique with use of larger muscle groups and gravity assistance. Pt return demonstrated with accuracy. Pt left in recliner with call light in reach and all needs met. Education OT Patient Education: Correct positioning, Energy conservation, Modified ADL techniques, Rehab process, Safety issues, Use of adapted equipment Teaching Recipient: Patient Teaching Methods: Demonstration, Discussion OT Short Term Goals Short Term Goals Grooming(FIM): 6 Bathing(FIM): 6 Toileting(FIM): 5 Toilet/Commode Transfer(FIM): 5 1=Demonstrate adherence to instructed precautions during ADL tasks. 2=Patient will verbalize/demonstrate understanding of assistive devices/modifications for ADL. 3=Patient will improve strength/tolerance for activity to enable patient to perform ADL's. OT Senior Dentist Goals Fdc Goals Eating (FIM): 7 Eating (QC): 6 Groomin Oral Hygiene (QC): 6 Bathing(FIM): 6 Shower/Bathe Self (QC): 6 Upper Body Dressing(FIM): 6 Upper Body Dressing (QC): 6 Lower Body Dressing(FIM): 6 Lower Body Dressing (QC): 6 On/Off Footwear (QC): 6 Toileting(FIM): 6 Toileting Hygiene (QC): 6 Transfers (B,C,W/C) (FIM): 6 Toilet/Commode Transfer(FIM): 6 Toilet/Commode Transfer (QC): 6 Tub Transfer(FIM): 5 Shower Transfer(FIM): 5 Additional Goals: 1-Demonstrate ADL Tasks, 2-Verbalize Understanding, 3- ImproveStrength/Bernardo 1=Demonstrate adherence to instructed precautions during ADL tasks. 2=Patient will verbalize/demonstrate understanding of assistive devices/modifications for ADL. 3=Patient will improve strength/tolerance for activity to enable patient to perform ADL's. OT Education/Plan Problem List/Assessment Assessment: Decreased Activ Tolerance, Decreased UE Strength, Impaired Coordination, Impaired I ADL's, Impaired Self-Care Skills Discharge Recommendations Plan/Recommendations: Continue POC Treatment Plan/Plan of Care Treatment,Training & Education: Yes Patient would benefit from OT for education, treatment and training to promote independence in ADL's, mobility, safety and/or upper extremity function for ADL's. Plan of Care: ADL Retraining, Caregiver Training, Functional Mobility, Group Exercise/Act as Ind, UE Funct Exercise/Act, Visual/Perceptual Retrain Treatment Duration: Nov 01, 2018 Frequency: 5 times per week Estimated Hrs Per Day: .25 hour per day Agreement: Yes Rehab Potential: Guarded Time/GCodes Start Time: 11:30 Stop Time: 11:55 Total Time Billed (hr/min): 25 Billed Treatment Time 1 ADL x2 (25) ASMITA MARTE OTR Oct 29, 2018 12:04
[2018-10-29] MEDS: ENOXAPARIN 40 MG/0.4 ML (LOVENOX) SYR SQ SCH (14:05)
[2018-10-29] MEDS: ASPIRIN E.C. 81 MG (ECOTRIN) TAB PO SCH (16:14)
[2018-10-29 18:03] VITALS: BP 116/69
[2018-10-29] MEDS: SERTRALINE 50 MG (ZOLOFT) TABLET PO SCH (21:56)
[2018-10-29] MEDS: MONTELUKAST 10 MG (SINGULAIR) TAB PO SCH (21:56)
[2018-10-30] MEDS: LACTATED RINGERS 1,000 ML IV SCH ×3 (01:36→22:06)
[2018-10-30 05:02] VITALS: BP 132/66
[2018-10-30] MEDS: ceFAZolin INJECTION 1,000 MG in WATER (STERILE) FOR INJECTION 10 ML IV SCH (05:37)
[2018-10-30] MEDS: KCL 20 MEQ TAB (K-DUR) PO SCH (05:37)
[2018-10-30] MEDS: metFORMIN XR 500 MG (GLUCOPHAGE XR) TAB PO SCH (05:37)
[2018-10-30] MEDS: PANTOPRAZOLE 40 MG (PROTONIX) TAB PO SCH ×2 (05:37→22:04)
[2018-10-30] MEDS: inSUlin ASPART (NovoLOG) 1 UNIT/0.01 ML (CHARGE PER UNIT) SC SCH ×4 (05:37→22:05)
[2018-10-30] MEDS: LEVOTHYROXINE 125 MCG (LEVOTHROID) TABLET PO SCH (05:37)
[2018-10-30] MEDS: DICYCLOMINE 10 MG (BENTYL) CAP PO SCH ×4 (08:37→22:04)
[2018-10-30] MEDS: SENNA W/DOCUSATE (SENOKOT S) TABLET PO SCH ×2 (08:37→22:05)
[2018-10-30] MEDS: morphine ER 15 MG (MS CONTIN) TAB PO SCH ×2 (08:37→22:04)
[2018-10-30] MEDS: GABAPENTIN 300 MG (NEURONTIN) CAP PO SCH ×3 (08:37→22:04)
[2018-10-30] MEDS: MAGNESIUM OXIDE (MAG-OX)400 MG TAB PO SCH ×2 (08:37→22:04)
--- NOTE | 2018-10-30 08:44 | Physical Therapy Daily Note ---
PT Daily Note-Current Subjective Patient in bathroom pre tx, agrees to PT, has no complaints of pain. Appearance Patient in recliner post tx with nurse call, phone, tray, all needs met. Mental Status Patient Orientation: Person, Place Attachments: Oxygen, IV Transfers Therapy Code Descriptions/Definitions Functional [place] Measure: 0=Not Assessed/NA 4=Minimal Assistance 1=Total Assistance 5=Supervision or Setup 2=Maximal Assistance 6=Modified [place] 3=Moderate Assistance 7=Complete [place] Therapy Quality Codes: 6 Independent with activity with or without an assistive device 5 Patient requires set up or clean up by helper. Patient completes activity by themselves 4 Supervision or touching assist (CGA). [place] provide cues , steadying assist 3 The helper provides less than half the effort to complete the activity 2 The helper provides more than half the effort to complete the activity 1 Dependent. The helper does all the effort to complete an activity 7 Patient refused to complete or attempt activity 9 The patient did not perform the activity before the current illness or injury 88 Not attempted due to Medical conditions or safety concerns Transfers (B, C, W/C) (FIM): 6 Sit to/from Stand: 6 Bed to/from Chair: 6 Weight Bearing Right Lower Extremity: Right Weight Bearing/Tolerated Left Lower Extremity: Left Weight Bearing/Tolerated Gait Training Gait (FIM): 6 Distance: 200' Gait Level of Assist: 6 Gait Assistive Device: FWW tends to keep walker too far out in front, slow but steady ambulation Exercises Seated Therapy Exercises: Ankle pumps, Long arc quads Seated Reps: 15 Treatments LE exercise, transfers, ambulation Assessment Current Status: Fair Progress improving general mobility PT Oim Architect Goals Oim Architect Goals PT Correction Goals Time Frame: Nov 16, 2018 Transfers (B,C,W/C) (FIM): 6 Sit to Lying (QC): 6 Lying-Sitting on Side/Bed(QC): 6 Sit to Stand (QC): 6 Rollin Roll Left to Right (QC): 6 Chair/Mwg-mz-Jynat Xfer(QC): 6 Car Transfer (QC): 6 Does the Patient Walk: Yes Gait (FIM): 6 Gait distance (FIM): 3=150 ft Distance: 150' Walk 10 feet (QC): 6 Walk 10ft-Uneven Surface(QC): 6 Walk 50ft with 2 Turns (QC): 6 Walk 150 ft (QC): 6 Gait Level of Assist: 6 Gait Assistive Device: Walker 4 Wheeled Stairs (FIM): 2 # of Steps: 2 1 Step (curb) (QC): 5 Stairs Level Of Assist: 5 PT Plan Problem List Problem List: Activity Tolerance, Functional Strength, Safety, Balance, Gait, Transfer Treatment/Plan Treatment Plan: Continue Plan of Care Treatment Plan: Bed Mobility, Education, Functional Activity Bernardo, Functional Strength, Gait, Safety, Therapeutic Exercise, Transfers Treatment Duration: Nov 16, 2018 Frequency: 6 times per week Estimated Hrs Per Day: .25 hour per day Patient and/or Family Agrees t: Yes Safety Risks/Education Patient Education: Gait Training, Transfer Techniques, Correct Positioning, Safety Issues Teaching Recipient: Patient Teaching Methods: Demonstration, Discussion Response to Teaching: Reinforcement Needed Time/GCodes Time In: 825 Time Out: 09 Total Billed Treatment Time: 12 Total Billed Treatment 1 visit GT MARTY LIM PT Oct 30, 2018 08:44
--- NOTE | 2018-10-30 09:25 | NUR ---
Pt understands that she may be discharged on .Discussed discharge date with pt and caregiver.Pt signed the Medicare notice of non-coverage and placed in chart. Pt was receiving Home Health Services from [facility] and would like those resumed with Nursing, Physical Therapy and Occupational Therapy. Pt also has follow-up appt. with at [facility], [place].
[2018-10-30 10:12] VITALS: BP 132/66
--- NOTE | 2018-10-30 11:34 | Occupational Ther Daily Note ---
OT Current Status-Daily Note Subjective Pt alert sitting in chair upon OT arrival. Mental Status/Objective Patient Orientation: Person, Place, Time, Situation Therapy Code Descriptions/Definitions Functional [place] Measure: 0=Not Assessed/NA 4=Minimal Assistance 1=Total Assistance 5=Supervision or Setup 2=Maximal Assistance 6=Modified [place] 3=Moderate Assistance 7=Complete [place] Attachments: IV, Oxygen ADL-Treatment Pt ambulated using 4WW to bathroom sink. Pt able to brush teeth at sink by self. Pt performed sponge bath at sitting at sink. Pt able to wash face, upper body, abdomen by self. SBA while standing due to safety concerns. Pt used wash cloth to dry face and wanted to air dry everything else. Placed 0.5 lb wrist weight round R wrist while performing ADL activities, decrease in tremor noted. Pt r equired assist to doff/[facility] hospital gown due to tubing. Pt ambulated back to chair using 4WW. Pt sitting in chair. Pt states that caregiver is available to assist throughout the day. Pt was able to feed self pudding using regular utensil with tremors noted. When using 0.5lb wt pt stated that it felt she had more control. Would recommend wt'd utensils or cuff to help with tremors. Call light and phone within reach. Pts needs met. Therapy Code Descriptions/Definitions Functional [place] Measure: 0=Not Assessed/NA 4=Minimal Assistance 1=Total Assistance 5=Supervision or Setup 2=Maximal Assistance 6=Modified [place] 3=Moderate Assistance 7=Complete [place] Therapy Quality Codes: 6 Independent with activity with or without an assistive device 5 Patient requires set up or clean up by helper. Patient completes activity by themselves 4 Supervision or touching assist (CGA). [place] provide cues , steadying assist 3 The helper provides less than half the effort to complete the activity 2 The helper provides more than half the effort to complete the activity 1 Dependent. The helper does all the effort to complete an activity 7 Patient refused to complete or attempt activity 9 The patient did not perform the activity before the current illness or injury 88 Not attempted due to Medical conditions or safety concerns Eating (QC): 6 Grooming (FIM): 6 Oral Hygiene (QC): 6 OT Short Term Goals Short Term Goals Grooming(FIM): 6 Bathing(FIM): 6 Toileting(FIM): 5 Toilet/Commode Transfer(FIM): 5 1=Demonstrate adherence to instructed precautions during ADL tasks. 2=Patient will verbalize/demonstrate understanding of assistive devices/modifications for ADL. 3=Patient will improve strength/tolerance for activity to enable patient to perform ADL's. OT Usp Goals Paramedic Rn Goals Eating (FIM): 7 Eating (QC): 6 Groomin Oral Hygiene (QC): 6 Bathing(FIM): 6 Shower/Bathe Self (QC): 6 Upper Body Dressing(FIM): 6 Upper Body Dressing (QC): 6 Lower Body Dressing(FIM): 6 Lower Body Dressing (QC): 6 On/Off Footwear (QC): 6 Toileting(FIM): 6 Toileting Hygiene (QC): 6 Transfers (B,C,W/C) (FIM): 6 Toilet/Commode Transfer(FIM): 6 Toilet/Commode Transfer (QC): 6 Tub Transfer(FIM): 5 Shower Transfer(FIM): 5 Additional Goals: 1-Demonstrate ADL Tasks, 2-Verbalize Understanding, 3- ImproveStrength/Bernardo 1=Demonstrate adherence to instructed precautions during ADL tasks. 2=Patient will verbalize/demonstrate understanding of assistive devices/modifications for ADL. 3=Patient will improve strength/tolerance for activity to enable patient to perform ADL's. OT Education/Plan Discharge Recommendations Plan/Recommendations: Continue POC Treatment Plan/Plan of Care Patient would benefit from OT for education, treatment and training to promote independence in ADL's, mobility, safety and/or upper extremity function for ADL's. Plan of Care: ADL Retraining, Caregiver Training, Functional Mobility, Group Exercise/Act as Ind, UE Funct Exercise/Act, Visual/Perceptual Retrain Treatment Duration: Nov 01, 2018 Frequency: 5 times per week Estimated Hrs Per Day: .25 hour per day Agreement: Yes Rehab Potential: Guarded Time/GCodes Start Time: 11:03 Stop Time: 11:26 Total Time Billed (hr/min): 23 Billed Treatment Time 1 visit-ADL 2 (23 min) ANASTASIA OLIVERA Oct 30, 2018 11:34
[2018-10-30] MEDS: VITAMIN D3 1,000 UNITS (CHOLECALCIFEROL) TABLET PO SCH (12:40)
[2018-10-30] MEDS: ENOXAPARIN 40 MG/0.4 ML (LOVENOX) SYR SQ SCH (16:04)
--- NOTE | 2018-10-30 16:57 | NUR ---
Pt's follow-up appt with Dr. Trinh at the [facility] is at 11:00am.
[2018-10-30] MEDS: ASPIRIN E.C. 81 MG (ECOTRIN) TAB PO SCH (17:25)
[2018-10-30 18:45] VITALS: BP 117/71
[2018-10-30] MEDS: SERTRALINE 50 MG (ZOLOFT) TABLET PO SCH (22:05)
[2018-10-30] MEDS: MONTELUKAST 10 MG (SINGULAIR) TAB PO SCH (22:06)
[2018-10-31 04:30] VITALS: BP 126/64
[2018-10-31 05:29] LABS: BASOPHILS % (AUTO) 0 % (0-10); EOSINOPHILS # (AUTO) 0.1 10^3/uL (0.0-0.3); EOSINOPHILS % (AUTO) 1 % (0-10); HEMATOCRIT 29 % (35-52); HEMOGLOBIN 8.2 G/DL (11.5-16.0); LYMPHOCYTES # (AUTO) 0.8 X 10^3 (1.0-4.0); LYMPHOCYTES % (AUTO) 14 % (12-44); MEAN CORPUSCULAR HEMOGLOBIN 25 PG (25-34); MEAN CORPUSCULAR HGB CONC 28 G/DL (32-36); MEAN CORPUSCULAR VOLUME 87 FL (80-99); MONOCYTES # (AUTO) 0.6 X 10^3 (0.0-1.0); MONOCYTES % (AUTO) 10 % (0-12); NEUTROPHILS # (AUTO) 4.3 X 10^3 (1.8-7.8); NEUTROPHILS % (AUTO) 75 % (42-75); PLATELET COUNT 226 10^3/uL (130-400); RED CELL DISTRIBUTION WIDTH 18.6 % (10.0-14.5); WHITE BLOOD COUNT 5.7 10^3/uL (4.3-11.0)
[2018-10-31 06:01] LABS: BUN/CREATININE RATIO 17; CALCIUM 9.2 MG/DL (8.5-10.1); CARBON DIOXIDE 31 MMOL/L (21-32); CHLORIDE 99 MMOL/L (98-107); CREATININE SERUM 0.53 MG/DL (0.60-1.30); GFR ESTIMATED > 60; GLUCOSE 174 MG/DL (70-105); SODIUM 140 MMOL/L (135-145)
[2018-10-31] MEDS: inSUlin ASPART (NovoLOG) 1 UNIT/0.01 ML (CHARGE PER UNIT) SC SCH ×2 (06:03→12:45)
[2018-10-31] MEDS: PANTOPRAZOLE 40 MG (PROTONIX) TAB PO SCH (06:20)
[2018-10-31] MEDS: metFORMIN XR 500 MG (GLUCOPHAGE XR) TAB PO SCH (06:20)
[2018-10-31] MEDS: LEVOTHYROXINE 125 MCG (LEVOTHROID) TABLET PO SCH (06:20)
[2018-10-31] MEDS: KCL 20 MEQ TAB (K-DUR) PO SCH (06:20)
[2018-10-31 06:29] VITALS: BP 126/64
[2018-10-31] MEDS: SENNA W/DOCUSATE (SENOKOT S) TABLET PO SCH (07:34)
[2018-10-31] MEDS: GABAPENTIN 300 MG (NEURONTIN) CAP PO SCH ×2 (08:17→13:00)
[2018-10-31] MEDS: morphine ER 15 MG (MS CONTIN) TAB PO SCH (08:17)
[2018-10-31] MEDS: MAGNESIUM OXIDE (MAG-OX)400 MG TAB PO SCH (08:17)
[2018-10-31] MEDS: LACTATED RINGERS 1,000 ML IV SCH (08:18)
[2018-10-31] MEDS: DICYCLOMINE 10 MG (BENTYL) CAP PO SCH ×2 (08:18→13:00)
--- NOTE | 2018-10-31 09:55 | NUR ---
Pt and caregiver making arrangements with [facility] to resume their Home health Services. In addition to Nursing they would like Physical and Occupational therapies to continue at home.
--- NOTE | 2018-10-31 11:22 | Discharge Summary ---
Diagnosis/Chief Complaint Date of Admission Oct 25, 2018 at 12:35 Date of Discharge 10/31/2018 Admission Diagnosis Admission Diagnosis See problem list Discharge Diagnosis See below Problems/Diagnosis: (1) Bacteremia Assessment & Plan: - Completed IV course of antibiotics (2) CAP (community acquired pneumonia) Assessment & Plan: - Needs 10 days total of IV antibiotics, continue SWB status until completion Qualifiers: Status: Acute (3) Diabetes mellitus, type 2 Assessment & Plan: - SSI Qualifiers: Qualified Codes: E11.65 - Type 2 diabetes mellitus with hyperglycemia; Z79.4 - residential (current) use of insulin Status: Chronic (4) Respiratory failure with hypoxia Assessment & Plan: - Patient comfortable on home oxygen, will complete antibiotics Status: Chronic Discharge Summary-Simple/Stand Discharge Physical Examination Allergies: Coded Allergies: latex (Verified Allergy, Unknown, 01/31/17) Vitals & I&Os Vital Sign - Last 12Hours Date Time Temp Pulse Resp B/P (MAP) Pulse Ox O2 Delivery O2 Flow Rate FiO2 10/31/18 08:00 Nasal Cannula 3.00 10/31/18 06:29 37.1 82 18 126/64 97 Intake and Output 10/31/18 00:00 Intake Total 1890 ml Output Total 625 ml Balance 1265 ml General Appearance: Alert, Oriented X3, Cooperative, No Acute Distress HEENT: Mucous Memb Moist/[place] Respiratory: Clear to Auscultation, Normal Air Movement Cardiovascular: Regular Rate, No Murmurs Abdominal: Normal Bowel Sounds, Soft, No Tenderness, No Masses Extremities: No Edema, No Tenderness/Swelling Neuro: Normal Speech, Strength at 5/5 X4 Ext, Sensation Intact, Cranial Nerves 3-12 NL Psych/Mental Status: Mental Status NL, Mood NL Hospital Course Was the Problem List Reviewed?: Yes See final discharge diagnosis. Discussion & Recommendations 72 yo F with known metastatic breast cancer in current treatment. Patient was admitted to the hospital last week and found to have concerns for PNA and blood cultures grew out GBS. Patient was then treated for 14 course of IV antibiotics. Patient was swing bed status to complete course of IV antibiotics. Discharge Condition at discharge stable Instructions to patient/family Please see electronic discharge instructions given to patient. Discharge Medications Reviewed and agree with Discharge Medication list on patient's Discharge Instruction sheet Clinical Quality Measures DVT/VTE Risk/Contraindication: Risk Factor Score Per Nursin Copy Copies To 1: JOHNNY GARZON MD, HOLLY R MD Oct 31, 2018 11:22
--- NOTE | 2018-10-31 11:26 | Therapy Team Discharge Summary ---
Therapy Discharge Summary Discharge Recommendations Date of Discharge Physical Therapy Patient is very motivated to return to home with caregivers. Patient declined step training stating they are platform steps and she won't have trouble with them. PT educated patient on importance of safety measures to ensure safe return to home. Patient is modified independent with all gross motor skills safely with good balance. Patient ambulates with 4WW 150'-200' without difficulty and with O2. Patient has met goals with exception of steps. Occupational Therapy Decreased Activ Tolerance, Decreased UE Strength, Impaired Coordination, Impaired I ADL's, Impaired Self-Care Skills PT Snf Goals Snf Goals PT Snf Goals Time Frame: Nov 16, 2018 (met 10/29/18) Transfers (B,C,W/C) (FIM): 6 (met 10/29/18) Sit to Lying (QC): 6 (met) Lying-Sitting on Side/Bed(QC): 6 (met 10/29/18) Sit to Stand (QC): 6 (met 10/29/18) Rollin (met 10/29/18) Chair/Qbk-nr-Llain Xfer(QC): 6 (met 10/29/18) Does the Patient Walk: Yes Gait (FIM): 6 (met 10/29/18) Gait distance (FIM): 3=150 ft Distance: 150' Walk 50ft with 2 Turns (QC): 6 (met 10/29/18) Walk 150 ft (QC): 6 (met 10/29/18) Gait Level of Assist: 6 (met 10/29/18) Gait Assistive Device: Walker 4 Wheeled Stairs (FIM): 2 # of Steps: 2 Stairs Level Of Assist: 5 OT Snf Goals Snf Goals Eating (FIM): 7 Eating (QC): 6 Groomin Oral Hygiene (QC): 6 Bathing(FIM): 6 Upper Body Dressing(FIM): 6 Lower Body Dressing(FIM): 6 Toileting(FIM): 6 Toileting Hygiene (QC): 6 Transfers (B,C,W/C) (FIM): 6 Toilet/Commode Transfer(FIM): 6 Toilet/Commode Transfer (QC): 6 Tub Transfer(FIM): 5 Shower Transfer(FIM): 5 Additional Goals: 1-Demonstrate ADL Tasks, 2-Verbalize Understanding, 3- ImproveStrength/Bernardo 1=Demonstrate adherence to instructed precautions during ADL tasks. 2=Patient will verbalize/demonstrate understanding of assistive devices/modifications for ADL. 3=Patient will improve strength/tolerance for activity to enable patient to perform ADL's. LUCAS SINGLETARY PT Oct 31, 2018 11:26
--- NOTE | 2018-10-31 11:28 | Discharge Instructions ---
Discharge [facility] Reconcile Patient Problems Problems Reviewed?: Yes Discharge Medications New, Converted or Re-Newed RX: Other Continued Medications: Albuterol Sulfate (Albuterol Sulfate) 2.5 Mg/3 Ml Vial.neb 2.5 MG NEB Q4H PRN for SHORTNESS OF BREATH, EA Aspirin (Aspirin EC) 81 Mg Tablet.dr 81 MG PO 1700, TAB Cholecalciferol (Vitamin D3) (Vitamin D) 2,000 Unit Tablet 2000 UNIT PO 1200, TAB Dicyclomine HCl (Dicyclomine HCl) 10 Mg Capsule 10 MG PO QID, CAP Diphenoxylate HCl/Atropine (Diphenoxylate-Atrop 2.5-0.025) 1 Each Tablet 1-2 TAB PO QID PRN for DIARRHEA, TAB Gabapentin (Gabapentin) 300 Mg Capsule 300 MG PO TID, CAP Glipizide (Glipizide) 10 Mg Tablet 10 MG PO BID, TAB Hydrocodone/Acetaminophen (Hydrocodone-Acetamin 7.5-325) 1 Each Tablet 1 TAB PO Q6H PRN for PAIN-MODERATE, TAB Levothyroxine Sodium (Levothyroxine Sodium) 125 Mcg Tablet 125 MCG PO DAILY, TAB Liraglutide (Victoza 3-Klaus) 0.6 Mg/0.1 Ml Pen.injctr 1.8 MG SC HS, EA [Magic Mouthwash] () MM UD PRN for MOUTH SORES, EA DIP COTTON SWAB INTO MEDICATION AND SWAB ON SORE AREAS NEEDED TO NUMB PAIN Magnesium Oxide (Magox 400) 400 Mg Tablet 400 MG PO BID, TAB Metformin HCl (Metformin HCl ER) 500 Mg Tab.er.24h 500 MG PO DAILY, TAB Mirabegron (Myrbetriq) 50 Mg Tab.er.24h 50 MG PO 1200, TAB LAST FILLED #30 06-25-18 Montelukast Sodium (Montelukast Sodium) 10 Mg Tablet 10 MG PO HS, TAB Morphine Sulfate (Morphine Sulfate ER) 15 Mg Tablet.er 15 MG PO BID, TAB Nystatin (Nyamyc) 15 Gm Powder TOP BID PRN for RASH, EA Omeprazole (Omeprazole) 40 Mg Capsule. 40 MG PO BID, CAP Sertraline HCl (Sertraline HCl) 25 Mg Tablet 25 MG PO HS, TAB Patient Instructions Goal/Follow Up Appt: You have a f.u appt with Dr Miranda on 18th 10 AM Activity & Diet Discharge Diet: ADA Diet Activity as Tolerated: Yes Copy Copies To 1: JOHNNY MIRANDA MD, HOLLY R MD Oct 31, 2018 11:28
[2018-10-31] MEDS: VITAMIN D3 1,000 UNITS (CHOLECALCIFEROL) TABLET PO SCH (13:23)
--- NOTE | 2018-10-31 13:41 | Therapy Team Discharge Summary ---
Therapy Discharge Summary Discharge Recommendations Date of Discharge Therapy D/C Recommendations: Occupational Therapy Home Care Occupational Therapy Pt worked toward IND within ADL tasks during stay. Pt educated on modified techniques for eating, dressing, and scanning enviornment. Pt states she has caregiver assist within the home, allowing her to have support if needed. Recommended d/c equipment: grab bars (shower), shower spray extension, weighted utensils, access tech, dressing stick. Pt could benefit further with HH OT in order to gain further IND within ADL and functional mobility within the home. Decreased Activ Tolerance, Decreased UE Strength, Impaired Coordination, Impaired I ADL's, Impaired Self-Care Skills PT Group Home Goals Distance Learning Unit Leader Goals PT Distance Learning Unit Leader Goals Time Frame: Nov 16, 2018 (met 10/29/18) Transfers (B,C,W/C) (FIM): 6 (met 10/29/18) Sit to Lying (QC): 6 (met) Lying-Sitting on Side/Bed(QC): 6 (met 10/29/18) Sit to Stand (QC): 6 (met 10/29/18) Rollin (met 10/29/18) Chair/Tho-qk-Uvzgd Xfer(QC): 6 (met 10/29/18) Does the Patient Walk: Yes Gait (FIM): 6 (met 10/29/18) Gait distance (FIM): 3=150 ft Distance: 150' Walk 50ft with 2 Turns (QC): 6 (met 10/29/18) Walk 150 ft (QC): 6 (met 10/29/18) Gait Level of Assist: 6 (met 10/29/18) Gait Assistive Device: Walker 4 Wheeled Stairs (FIM): 2 # of Steps: 2 Stairs Level Of Assist: 5 OT Distance Learning Unit Leader Goals Group Home Goals Eating (FIM): 7 Eating (QC): 6 Groomin (met) Oral Hygiene (QC): 6 Bathing(FIM): 6 (met) Upper Body Dressing(FIM): 6 Lower Body Dressing(FIM): 6 Toileting(FIM): 6 Toileting Hygiene (QC): 6 Transfers (B,C,W/C) (FIM): 6 Toilet/Commode Transfer(FIM): 6 Toilet/Commode Transfer (QC): 6 Tub Transfer(FIM): 5 Shower Transfer(FIM): 5 Additional Goals: 1-Demonstrate ADL Tasks, 2-Verbalize Understanding, 3- ImproveStrength/Bernardo 1=Demonstrate adherence to instructed precautions during ADL tasks. 2=Patient will verbalize/demonstrate understanding of assistive devic es/modifications for ADL. 3=Patient will improve strength/tolerance for activity to enable patient to perform ADL's. ASMITA MARTE OTR Oct 31, 2018 13:41
== END 2018-10-31 13:35 | disposition home health service (06) | DRG 194 ==
LOC: 4TH 12:35
PROVIDERS: ADMIT Family Medicine; ATTEND Family Medicine
DX: J18.1 Lobar pneumonia, unspecified organism (principal); J96.11 Chronic respiratory failure with hypoxia; E11.622 Type 2 diabetes mellitus with other skin ulcer; L89.152 Pressure ulcer of sacral region, stage 2; E11.42 Type 2 diabetes mellitus with diabetic polyneuropathy; Z66 Do not resuscitate; C50.919 Malignant neoplasm of unspecified site of unspecified female breast; I10 Essential (primary) hypertension; E78.5 Hyperlipidemia, unspecified; Z99.81 Dependence on supplemental oxygen; Z87.891 Personal history of nicotine dependence
CPT/HCPCS: 36415; 80048; 82962; 85025; 85027; 94640; 94760

== ENCOUNTER → 2018-11-05 | Outpatient (CLI) | payer MEDICARE, MEDICAID | LOC: WOUNDCARE 12:33 | PROVIDERS: ATTEND Surgery | DX: I96 Gangrene, not elsewhere classified (principal); L89.153 Pressure ulcer of sacral region, stage 3; L22 Diaper dermatitis; N39.45 Continuous leakage; C79.9 Secondary malignant neoplasm of unspecified site | CPT/HCPCS: 99212 ==

== ENCOUNTER → 2018-11-15 | Outpatient (CLI) | payer MEDICARE, MEDICAID | LOC: WOUNDCARE 09:19 | PROVIDERS: ATTEND Surgery | DX: L89.153 Pressure ulcer of sacral region, stage 3 (principal); N39.45 Continuous leakage; L22 Diaper dermatitis; C79.9 Secondary malignant neoplasm of unspecified site; I96 Gangrene, not elsewhere classified | CPT/HCPCS: 99212 ==

== ENCOUNTER → 2018-11-22 | Outpatient (CLI) | payer MEDICARE, MEDICAID | LOC: WOUNDCARE 09:20 | PROVIDERS: ATTEND Surgery | DX: L89.153 Pressure ulcer of sacral region, stage 3 (principal); N39.45 Continuous leakage; L22 Diaper dermatitis; C79.9 Secondary malignant neoplasm of unspecified site; I96 Gangrene, not elsewhere classified | CPT/HCPCS: 11042 ==

== ENCOUNTER → 2018-11-29 | Outpatient (CLI) | payer MEDICARE, MEDICAID, OTHER ==
[~2018-11-29] MED LIST changes: +METO-387 PO
== END ==
LOC: WOUNDCARE 11:54
PROVIDERS: ATTEND Nurse Practitioner
DX: I96 Gangrene, not elsewhere classified (principal); L89.153 Pressure ulcer of sacral region, stage 3; N39.45 Continuous leakage; L22 Diaper dermatitis; C79.9 Secondary malignant neoplasm of unspecified site
CPT/HCPCS: 11042

== ENCOUNTER → 2018-12-02 | Outpatient (RCR) | payer MEDICARE, MEDICAID, OTHER ==
[2018-09-03 09:24] LABS: BASOPHILS % (AUTO) 0 % (0-10); EOSINOPHILS # (AUTO) 0.1 10^3/uL (0.0-0.3); EOSINOPHILS % (AUTO) 1 % (0-10); HEMATOCRIT 32 % (35-52); HEMOGLOBIN 9.3 G/DL (11.5-16.0); LYMPHOCYTES # (AUTO) 0.6 X 10^3 (1.0-4.0); LYMPHOCYTES % (AUTO) 7 % (12-44); MEAN CORPUSCULAR HEMOGLOBIN 27 PG (25-34); MEAN CORPUSCULAR HGB CONC 30 G/DL (32-36); MEAN CORPUSCULAR VOLUME 91 FL (80-99); MEAN PLATELET VOLUME 10.3 FL (7.4-10.4); MONOCYTES # (AUTO) 0.5 X 10^3 (0.0-1.0); MONOCYTES % (AUTO) 6 % (0-12); NEUTROPHILS # (AUTO) 6.4 X 10^3 (1.8-7.8); NEUTROPHILS % (AUTO) 86 % (42-75); PLATELET COUNT 180 10^3/uL (130-400); RED CELL DISTRIBUTION WIDTH 18.6 % (10.0-14.5); WHITE BLOOD COUNT 7.5 10^3/uL (4.3-11.0)
[2018-09-03 09:38] LABS: BUN/CREATININE RATIO 17; CALCIUM 9.6 MG/DL (8.5-10.1); CARBON DIOXIDE 29 MMOL/L (21-32); CHLORIDE 102 MMOL/L (98-107); CREATININE SERUM 0.66 MG/DL (0.60-1.30); GFR ESTIMATED > 60; GLUCOSE 239 MG/DL (70-105); POTASSIUM 3.7 MMOL/L (3.6-5.0); SODIUM 139 MMOL/L (135-145)
[2018-09-10 12:45] LABS: BASOPHILS % (AUTO) 0 % (0-10); EOSINOPHILS % (AUTO) 1 % (0-10); HEMATOCRIT 29 % (35-52); HEMOGLOBIN 8.6 G/DL (11.5-16.0); LYMPHOCYTES # (AUTO) 0.6 X 10^3 (1.0-4.0); LYMPHOCYTES % (AUTO) 14 % (12-44); MEAN CORPUSCULAR HEMOGLOBIN 26 PG (25-34); MEAN CORPUSCULAR HGB CONC 30 G/DL (32-36); MEAN CORPUSCULAR VOLUME 90 FL (80-99); MEAN PLATELET VOLUME 10.4 FL (7.4-10.4); MONOCYTES # (AUTO) 0.4 X 10^3 (0.0-1.0); MONOCYTES % (AUTO) 10 % (0-12); NEUTROPHILS # (AUTO) 2.9 X 10^3 (1.8-7.8); NEUTROPHILS % (AUTO) 75 % (42-75); PLATELET COUNT 178 10^3/uL (130-400); RED CELL DISTRIBUTION WIDTH 18.7 % (10.0-14.5); WHITE BLOOD COUNT 3.8 10^3/uL (4.3-11.0)
[2018-09-10 13:04] LABS: BUN/CREATININE RATIO 23; CALCIUM 9.2 MG/DL (8.5-10.1); CARBON DIOXIDE 29 MMOL/L (21-32); CHLORIDE 102 MMOL/L (98-107); CREATININE SERUM 0.61 MG/DL (0.60-1.30); GFR ESTIMATED > 60; GLUCOSE 252 MG/DL (70-105); POTASSIUM 3.9 MMOL/L (3.6-5.0); SODIUM 140 MMOL/L (135-145)
[2018-09-24 10:42] LABS: BASOPHILS % (AUTO) 0 % (0-10); EOSINOPHILS # (AUTO) 0.1 10^3/uL (0.0-0.3); EOSINOPHILS % (AUTO) 1 % (0-10); HEMATOCRIT 32 % (35-52); HEMOGLOBIN 9.3 G/DL (11.5-16.0); LYMPHOCYTES # (AUTO) 0.5 X 10^3 (1.0-4.0); LYMPHOCYTES % (AUTO) 10 % (12-44); MEAN CORPUSCULAR HEMOGLOBIN 26 PG (25-34); MEAN CORPUSCULAR HGB CONC 29 G/DL (32-36); MEAN CORPUSCULAR VOLUME 89 FL (80-99); MEAN PLATELET VOLUME 10.5 FL (7.4-10.4); MONOCYTES # (AUTO) 0.7 X 10^3 (0.0-1.0); MONOCYTES % (AUTO) 13 % (0-12); NEUTROPHILS # (AUTO) 4.2 X 10^3 (1.8-7.8); NEUTROPHILS % (AUTO) 76 % (42-75); PLATELET COUNT 196 10^3/uL (130-400); RED CELL DISTRIBUTION WIDTH 18.7 % (10.0-14.5); WHITE BLOOD COUNT 5.5 10^3/uL (4.3-11.0)
[2018-09-24 10:56] LABS: ALANINE AMINOTRANSFERASE 7 U/L (0-55); ALBUMIN 3.3 GM/DL (3.2-4.5); ALKALINE PHOSPHATASE 93 U/L (40-136); BILIRUBIN,TOTAL 0.4 MG/DL (0.1-1.0); BUN/CREATININE RATIO 20; CALCIUM 9.2 MG/DL (8.5-10.1); CARBON DIOXIDE 28 MMOL/L (21-32); CHLORIDE 104 MMOL/L (98-107); CREATININE SERUM 0.65 MG/DL (0.60-1.30); GFR ESTIMATED > 60; GLUCOSE 264 MG/DL (70-105); POTASSIUM 3.9 MMOL/L (3.6-5.0); SODIUM 140 MMOL/L (135-145)
[2018-10-01 11:05] LABS: BASOPHILS % (AUTO) 0 % (0-10); EOSINOPHILS # (AUTO) 0.1 10^3/uL (0.0-0.3); EOSINOPHILS % (AUTO) 1 % (0-10); HEMATOCRIT 30 % (35-52); HEMOGLOBIN 8.7 G/DL (11.5-16.0); LYMPHOCYTES # (AUTO) 0.6 X 10^3 (1.0-4.0); LYMPHOCYTES % (AUTO) 11 % (12-44); MEAN CORPUSCULAR HEMOGLOBIN 26 PG (25-34); MEAN CORPUSCULAR HGB CONC 29 G/DL (32-36); MEAN CORPUSCULAR VOLUME 89 FL (80-99); MEAN PLATELET VOLUME 11.1 FL (7.4-10.4); MONOCYTES # (AUTO) 0.5 X 10^3 (0.0-1.0); MONOCYTES % (AUTO) 9 % (0-12); NEUTROPHILS # (AUTO) 4.4 X 10^3 (1.8-7.8); NEUTROPHILS % (AUTO) 79 % (42-75); PLATELET COUNT 152 10^3/uL (130-400); RED CELL DISTRIBUTION WIDTH 19.2 % (10.0-14.5); WHITE BLOOD COUNT 5.6 10^3/uL (4.3-11.0)
[2018-10-01 11:19] LABS: BUN/CREATININE RATIO 22; CALCIUM 9.1 MG/DL (8.5-10.1); CARBON DIOXIDE 28 MMOL/L (21-32); CHLORIDE 105 MMOL/L (98-107); CREATININE SERUM 0.58 MG/DL (0.60-1.30); GFR ESTIMATED > 60; GLUCOSE 199 MG/DL (70-105); POTASSIUM 3.6 MMOL/L (3.6-5.0); SODIUM 143 MMOL/L (135-145)
[2018-10-01 12:05] LABS: BILIRUBIN,URINE NEGATIVE (NEGATIVE); CLARITY,URINE CLEAR; COLOR,URINE YELLOW; GLUCOSE, URINE (UA) 1+ (NEGATIVE); KETONES,URINE NEGATIVE (NEGATIVE); LEUKOCYTE ESTERASE ,URINE 1+ (NEGATIVE); NITRITE,URINE NEGATIVE (NEGATIVE); PH,URINE 6 (5-9); PROTEIN,URINE 2+ (NEGATIVE); UROBILINOGEN,URINE NORMAL (NORMAL)
[2018-10-01 12:16] LABS: BACTERIA,URINE FEW /HPF
[2018-10-01 14:23] LABS: BILIRUBIN,URINE NEGATIVE (NEGATIVE); CLARITY,URINE CLEAR; COLOR,URINE YELLOW; GLUCOSE, URINE (UA) 2+ (NEGATIVE); KETONES,URINE NEGATIVE (NEGATIVE); LEUKOCYTE ESTERASE ,URINE NEGATIVE (NEGATIVE); NITRITE,URINE NEGATIVE (NEGATIVE); PH,URINE 6.5 (5-9); PROTEIN,URINE NEGATIVE (NEGATIVE); UROBILINOGEN,URINE NORMAL (NORMAL)
[2018-10-01 14:35] LABS: BACTERIA,URINE TRACE /HPF; WBC,URINE 0-2 /HPF
[2018-10-08 10:20] LABS: BASOPHILS % (AUTO) 0 % (0-10); EOSINOPHILS % (AUTO) 0 % (0-10); HEMATOCRIT 32 % (35-52); HEMOGLOBIN 9.2 G/DL (11.5-16.0); LYMPHOCYTES # (AUTO) 0.5 X 10^3 (1.0-4.0); LYMPHOCYTES % (AUTO) 6 % (12-44); MEAN CORPUSCULAR HEMOGLOBIN 26 PG (25-34); MEAN CORPUSCULAR HGB CONC 29 G/DL (32-36); MEAN CORPUSCULAR VOLUME 88 FL (80-99); MEAN PLATELET VOLUME 10.5 FL (7.4-10.4); MONOCYTES # (AUTO) 0.6 X 10^3 (0.0-1.0); MONOCYTES % (AUTO) 7 % (0-12); NEUTROPHILS % (AUTO) 87 % (42-75); PLATELET COUNT 190 10^3/uL (130-400); RED CELL DISTRIBUTION WIDTH 19.1 % (10.0-14.5); WHITE BLOOD COUNT 9.2 10^3/uL (4.3-11.0)
[2018-10-08 10:46] LABS: ALANINE AMINOTRANSFERASE 10 U/L (0-55); ALBUMIN 3.3 GM/DL (3.2-4.5); ALKALINE PHOSPHATASE 84 U/L (40-136); BILIRUBIN,TOTAL 0.6 MG/DL (0.1-1.0); BUN/CREATININE RATIO 18; CARBON DIOXIDE 28 MMOL/L (21-32); CHLORIDE 102 MMOL/L (98-107); CREATININE SERUM 0.65 MG/DL (0.60-1.30); GFR ESTIMATED > 60; GLUCOSE 272 MG/DL (70-105); POTASSIUM 3.9 MMOL/L (3.6-5.0); SODIUM 139 MMOL/L (135-145); TOTAL PROTEIN 6.2 GM/DL (6.4-8.2)
[2018-11-06 11:00] LABS: BASOPHILS % (AUTO) 0 % (0-10); EOSINOPHILS % (AUTO) 1 % (0-10); HEMATOCRIT 31 % (35-52); HEMOGLOBIN 8.8 G/DL (11.5-16.0); LYMPHOCYTES # (AUTO) 0.7 X 10^3 (1.0-4.0); LYMPHOCYTES % (AUTO) 10 % (12-44); MEAN CORPUSCULAR HEMOGLOBIN 25 PG (25-34); MEAN CORPUSCULAR HGB CONC 29 G/DL (32-36); MEAN CORPUSCULAR VOLUME 87 FL (80-99); MEAN PLATELET VOLUME 10.3 FL (7.4-10.4); MONOCYTES # (AUTO) 0.6 X 10^3 (0.0-1.0); MONOCYTES % (AUTO) 8 % (0-12); NEUTROPHILS # (AUTO) 5.5 X 10^3 (1.8-7.8); NEUTROPHILS % (AUTO) 81 % (42-75); PLATELET COUNT 248 10^3/uL (130-400); RED CELL DISTRIBUTION WIDTH 19.1 % (10.0-14.5); WHITE BLOOD COUNT 6.9 10^3/uL (4.3-11.0)
[2018-11-06 11:18] LABS: ALANINE AMINOTRANSFERASE 11 U/L (0-55); ALBUMIN 3.4 GM/DL (3.2-4.5); ALKALINE PHOSPHATASE 87 U/L (40-136); BILIRUBIN,TOTAL 0.5 MG/DL (0.1-1.0); BUN/CREATININE RATIO 27; CALCIUM 9.2 MG/DL (8.5-10.1); CARBON DIOXIDE 29 MMOL/L (21-32); CHLORIDE 100 MMOL/L (98-107); CREATININE SERUM 0.67 MG/DL (0.60-1.30); GFR ESTIMATED > 60; GLUCOSE 353 MG/DL (70-105); POTASSIUM 3.8 MMOL/L (3.6-5.0); SODIUM 137 MMOL/L (135-145); TOTAL PROTEIN 6.8 GM/DL (6.4-8.2)
[~2018-12-02] VITALS: Ht 157.5 cm; Wt 76.2 kg
[~2018-12-02] MED LIST changes: -METO-387 PO; +NS IV 1000 ML (CANCER CTR) IV SCH; +ONDANSETRON MDV (CANCER CENTER 16 MG, DEXAMETHASONE INJECTION 10 MG in NS (IVPB) CANCER... IV SCH; +PACLitaxel PROTEIN 150 MG in EMPTY IV BAG (PVC) CANCER CTR 1 EA IV SCH
[2018-12-02 09:53] LABS: BASOPHILS % (AUTO) 0 % (0-10); EOSINOPHILS # (AUTO) 0.1 10^3/uL (0.0-0.3); EOSINOPHILS % (AUTO) 1 % (0-10); HEMATOCRIT 33 % (35-52); HEMOGLOBIN 9.3 G/DL (11.5-16.0); LYMPHOCYTES # (AUTO) 0.8 X 10^3 (1.0-4.0); LYMPHOCYTES % (AUTO) 13 % (12-44); MEAN CORPUSCULAR HEMOGLOBIN 24 PG (25-34); MEAN CORPUSCULAR HGB CONC 28 G/DL (32-36); MEAN CORPUSCULAR VOLUME 86 FL (80-99); MEAN PLATELET VOLUME 9.8 FL (7.4-10.4); MONOCYTES # (AUTO) 0.7 X 10^3 (0.0-1.0); MONOCYTES % (AUTO) 11 % (0-12); NEUTROPHILS # (AUTO) 4.6 X 10^3 (1.8-7.8); NEUTROPHILS % (AUTO) 75 % (42-75); PLATELET COUNT 182 10^3/uL (130-400); WHITE BLOOD COUNT 6.1 10^3/uL (4.3-11.0)
[2018-12-02 10:20] LABS: ALANINE AMINOTRANSFERASE 14 U/L (0-55); ALBUMIN 3.4 GM/DL (3.2-4.5); ALKALINE PHOSPHATASE 87 U/L (40-136); BILIRUBIN,TOTAL 0.5 MG/DL (0.1-1.0); BUN/CREATININE RATIO 27; CALCIUM 9.8 MG/DL (8.5-10.1); CARBON DIOXIDE 32 MMOL/L (21-32); CHLORIDE 101 MMOL/L (98-107); GFR ESTIMATED > 60; GLUCOSE 294 MG/DL (70-105); POTASSIUM 3.7 MMOL/L (3.6-5.0); SODIUM 143 MMOL/L (135-145)
== END | disposition home or self-care (01) ==
LOC: ONC 09-03 09:11
PROVIDERS: ATTEND Internal Medicine Hematology & Oncology
DX: Z51.11 Encounter for antineoplastic chemotherapy (principal); C50.211 Malignant neoplasm of upper-inner quadrant of right female breast; J91.0 Malignant pleural effusion; E11.9 Type 2 diabetes mellitus without complications; I10 Essential (primary) hypertension; E78.00 Pure hypercholesterolemia, unspecified; E03.9 Hypothyroidism, unspecified; K21.9 Gastro-esophageal reflux disease without esophagitis; F41.9 Anxiety disorder, unspecified; I89.0 Lymphedema, not elsewhere classified; Z17.0 Estrogen receptor positive status [ER+]; Z79.811 Long term (current) use of aromatase inhibitors; Z79.82 Long term (current) use of aspirin; Z79.84 Long term (current) use of oral hypoglycemic drugs
CPT/HCPCS: 36415; 36591; 80048; 80053; 81000; 85025; 86300; 87088; 96360; 96361; 96375; 96413

== ENCOUNTER → 2018-12-02 | Outpatient (CLI) | payer MEDICARE, MEDICAID ==
[~2018-12-02] MED LIST changes: +METO-387 PO; -NS IV 1000 ML (CANCER CTR) IV SCH; -ONDANSETRON MDV (CANCER CENTER 16 MG, DEXAMETHASONE INJECTION 10 MG in NS (IVPB) CANCER... IV SCH; -PACLitaxel PROTEIN 150 MG in EMPTY IV BAG (PVC) CANCER CTR 1 EA IV SCH
--- NOTE | 2018-12-02 12:50 | Diagnostic Imaging Report ---
EXAMINATION: CHEST (PA AND LATERAL). CLINICAL INDICATION: 73-year-old female, shortness of breath. Left-sided pleural effusion. COMPARISON: October 21, 2018. FINDINGS: There is a right-sided port catheter with the tip near the level of the cavoatrial junction. There is a stable overall appearance of the cardiomediastinal silhouette. There is no identified pneumothorax. There is prominent blunting of the right lateral costophrenic angle and nonspecific right basilar airspace consolidation. There is extensive airspace consolidation in the left mid to lower lung zones. There is a convex masslike area of attenuation along the left lateral lung margin. There are surgical clips overlying the right chest and left upper lobe. IMPRESSION: 1. Interval increase in prominence of the convex mass-like opacity along the left lateral lung margin. This may potentially be pleurally or chest wall based. This potentially could relate to a loculated effusion although the imaging appearance could be seen with a pleural based or chest wall mass as well. 2. The extensive airspace consolidation in the left mid and lower lung zone as well as the right lung base with probable bilateral pleural effusions is largely unchanged since October 21, 2018. Dictated by: Dictated on workstation # [id number]
== END ==
LOC: RAD 11:18
PROVIDERS: ATTEND Nurse Practitioner Adult Health
DX: J90 Pleural effusion, not elsewhere classified (principal); J18.1 Lobar pneumonia, unspecified organism; Z95.828 Presence of other vascular implants and grafts
CPT/HCPCS: 71046

== ENCOUNTER 2018-12-05 10:10 | Inpatient (IN) | payer MEDICARE, MEDICAID ==
[~2018-12-05] VITALS: Ht 152.4 cm; Wt 70.5 kg
[~2018-12-05 10:10] MED LIST changes: -METO-387 PO
--- NOTE | 2018-12-05 10:40 | NUR ---
Pt admitted to room 410, with an admitting diagnosis of malignant pleural effusion, on 12/05/18. Direct admit from Dr Miranda office, accompanied by Yelitza (Friend/caregiver). EVERETT MARTÍNEZ introduced to surroundings, call light, bed controls, phone, TV, temperature control, lights, meal times, side rail policy, bathrooms and showers. Patient Rights given to patient in the handbook. EVERETT MARTÍNEZ verbalizes understanding of Interdisciplinary Patient Education. Call light within reach. Will monitor pt closely.
[2018-12-05 10:54] VITALS: BP 127/71
[2018-12-05 11:15] VITALS: BP 123/64
--- NOTE | 2018-12-05 11:47 | History & Physical ---
JEY SONG, 12/05/18 1147: HPI History of Present Illness: HPI: Pt began feeling bad on Sunday and didn't attend religion. Hx of a malignant pleural effusion. Feeling short of breath and coughing with phlegm production. She stated that her phlegm was clear, but caregiver states that pt is not a reliable historian. Yesterday morning, her blood sugar was 150, but 4 hours later, the pt complained of being shaky. Blood sugar was rechecked and was 269. This morning O2 sat was checked by home health nurse and was 92 @ 0815, followed by 90 @ 0835. Pt stepped on O2 cord and panicked about not being able to breathe. Went to [facility] and O2 sat was 84. There, she coughed up phlegm that was orange and brown. Pt is also complaining of back pain. She rated it a 5/10 and described it as an ache. She localized it to her low back which is consistent w ith compression fractures in this location. Source: patient, caregiver Date seen by provider: Dec 05, 2018 Time Seen by Provider: 10:56 Attending Physician Johnny Miranda MD PCP Johnny Miranda MD Consult Date of Admission Dec 05, 2018 at 10:45 Home Medications Home Medications Reviewed patient Home Medication Reconciliation performed by pharmacy medication reconciliations plastic technician and/or nursing. Patients Allergies have been reviewed. Allergies Coded Allergies: latex (Verified Allergy, Unknown, 01/31/17) GWP-Ashssg-Ftehva Hx Patient Social History Alcohol Use: Denies Use Smoking Status: Former Smoker (quit 15 years ago) Former smoker/When Quit: Dec 25, 2006 Type Used: Cigarettes 2nd Hand Smoke Exposure: No Recent Foreign Travel: No Contact w/other who traveled: No Recent Hopitalizations: No Immunizations Up To Date Tetanus Booster (TDap): Unknown Date of Pneumonia Vaccine: Jan 26, 2012 Date of Influenza Vaccine: Nov 19, 2014 Past Medical History Breast cancer, diagnosed 2008, followed by Dr Trinh Recurrent Pleural Effusions DMT2 HTN HLD Hypothyroidism 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 Review of Systems ([facility]) Constitutional: weakness EENTM: ear pain, nose congestion, nose pain Respiratory: cough; No hemoptysis; orthopnea, short of breath Cardiovascular: No chest pain, No palpitations Gastrointestinal: No abdominal pain, No nausea, No vomiting Genitourinary: No dysuria, No hematuria Musculoskeletal: No muscle stiffness; muscle weakness Skin: No lesions, No rash Psychiatric/Neurological: Anxiety; Denies Depressed Physical Exam-([facility]) Physical Exam Vital Signs Capillary Refill : General Appearance: mild distress, thin Eyes: Bilateral Eye Normal Inspection, Bilateral Eye EOMI HEENT: PERRL/EOMI; No scleral icterus (R), No scleral icterus (L) Neck: non-tender, supple Respiratory: crackles, wheezing Cardiovascular: regular rate, rhythm, no murmur Peripheral Pulses: 2+ Radial Pulses (R), 2+ Radial Pulses (L) Gastrointestinal: normal bowel sounds, non tender, soft; No distended Extremities: No calf tenderness; pedal edema (1+ pitting edema bilateral LE) Neurologic/Psychiatric: alert, normal mood/affect Skin: normal color, warm/dry Lymphatic: no adenopathy Assessment/Plan Assessment/Plan Assessment & Plan Assessment: 1. Pneumonia 2. Malignant pleural effusion 3. R/o influenza Plan: 1. Order RT for breathing treatments, sputum culture, steroids, empiric antibiotics 2. CXR to see if effusion has grown 3. Influenza swab JOHNNY MIRANDA MD 12/05/18 4085: HPI History of Present Illness: Reviewed HPI and agree with above in addition. Patient states that she had CXR on the and was told that she had a new cancer lesion that was found. She has not been told by Dr Trinh what the plan is since this new finding. Source: patient, caregiver (Yelitza) Exam Limitations: no limitations Home Medications Allergies Coded Allergies: latex (Verified Allergy, Unknown, 01/31/17) KFW-Goitfo-Bqqwum Hx Patient Social History Living Status: Lives home alone and gets Past Medical History Metastatic breast cancer NIDDM HTN Oxygen supplementation Family Medical History Significant Family History: No Pertinent Family Hx (caregiver states that pt is adopted) Family History: Patient reports no known family medical history. Review of Systems ([facility]) Constitutional: malaise, weakness EENTM: nose congestion; No mouth pain, No throat pain Respiratory: cough, hemoptysis, orthopnea, short of breath Cardiovascular: no symptoms reported; No chest pain, No palpitations Gastrointestinal: No abdominal pain; loss of appetite; No nausea, No vomiting Genitourinary: no symptoms reported; No dysuria, No hematuria Musculoskeletal: muscle weakness Skin: no symptoms reported; No lesions, No rash Psychiatric/Neurological: Anxiety; Denies Depressed Reviewed Test Results Reviewed Test Results Lab Laboratory Tests Test 12/05/18 14:10 Range/Units Sodium Level 143 135-145 MMOL/L Potassium Level 3.8 3.6-5.0 MMOL/L Chloride Level 102 98-107 MMOL/L Carbon Dioxide Level 34 H 21-32 MMOL/L Anion Gap 7 5-14 MMOL/L Blood Urea Nitrogen 16 7-18 MG/DL Creatinine 0.69 0.60-1.30 MG/DL Estimat Glomerular Filtration Rate > 60 BUN/Creatinine Ratio 23 Glucose Level 219 H 70-105 MG/DL Lactic Acid Level 1.27 0.50-2.00 MMOL/L Calcium Level 9.3 8.5-10.1 MG/DL Corrected Calcium 9.9 8.5-10.1 MG/DL Total Bilirubin 0.4 0.1-1.0 MG/DL Aspartate Amino Transf (AST/SGOT) 26 5-34 U/L Alanine Aminotransferase (ALT/SGPT) 10 0-55 U/L Alkaline Phosphatase 92 40-136 U/L Total Protein 6.6 6.4-8.2 GM/DL Albumin 3.3 3.2-4.5 GM/DL Physical Exam-([facility]) Physical Exam General Appearance: mild distress, thin HEENT: PERRL/EOMI Neck: non-tender, supple Respiratory: chest non-tender, decreased breath sounds, crackles, wheezing Cardiovascular: normal peripheral pulses, regular rate, rhythm, no murmur Gastrointestinal: normal bowel sounds, non tender, soft Extremities: No calf tenderness; pedal edema (1+ pitting edema bilateral LE) Neurologic/Psychiatric: animal groomer II-XII nml as tested, no motor/sensory deficits, alert, normal mood/affect, oriented x 3 Skin: normal color, warm/dry Lymphatic: no adenopathy Assessment/Plan Assessment/Plan Admission Status: Inpatient Order (span 2 midnights) Reason for Inpatient Admission: Patient is requiring increased oxygen and IV antibiotics (1) Respiratory failure with hypoxia Status: Chronic Assessment & Plan: - CXR shows worsening pleural effusion since Sunday, Start antibiotics, steroids, MAT protocol Qualifiers: Qualified Codes: J96.21 - Acute and chronic respiratory failure with hypoxia (2) Malignant pleural effusion Status: Chronic (3) Diabetes mellitus type 2 with complications Status: Chronic Assessment & Plan: - Continue home meds except Metformin while in the hospital (4) CAP (community acquired pneumonia) Status: Acute Assessment & Plan: - Continue antibiotics Qualifiers: Qualified Codes: J18.9 - Pneumonia, unspecified organism (5) DVT prophylaxis Status: Acute Assessment & Plan: - Lovenox Supervisory-Addendum Brief Verification & Attestation Participated in pt care: history, physical Personally performed: exam, history Care discussed with: Medical Student Procedures: n/a Verification and Attestation of Medical Student E/M Service A medical student performed and documented this service in my presence. I reviewed and verified all information documented by the medical student and made modifications to such information, when appropriate. I personally performed the physical exam and medical decision making. Johnny Miranda, Dec 05, 2018,16:08 JEY SONG, Dec 05, 2018 11:47 JOHNNY MIRANDA MD Dec 05, 2018 15:55
[2018-12-05] MEDS ORDERED: RT-IPRATROPIUM (ATROVENT) 0.5MG/2.5ML AMP IH NR (12:00)
[2018-12-05] MEDS ORDERED: RT-ALBUTEROL SULF 2.5 MG/3 ML PRE-MIX VIAL INH NR (12:00)
--- NOTE | 2018-12-05 12:22 | Diagnostic Imaging Report ---
INDICATION: Increased shortness of air. COMPARISON: 12/02/2018. FINDINGS: Frontal and lateral radiographic views of the chest were obtained and show interval increase in right-sided moderate pleural effusion. Cardiac silhouette and pulmonary vasculature remain prominent. There is prominent juxtapleural mass like opacity laterally on the left as well as moderate scattered and confluent alveolar opacities throughout the left mid and lower lung field. Overall, aeration on the left is stable. No pneumothorax is seen on either side. Right internal jugular Port-A-Cath is present. Osseous structures show no acute abnormalities. IMPRESSION: 1. Interval increase in right basilar pleural effusion. 2. Otherwise, stable exam of the chest as described above. Dictated by: Dictated on workstation # [id number]
[2018-12-05] MEDS ORDERED: METO-387 PO (12:44)
--- NOTE | 2018-12-05 13:08 | NUR ---
WENT OVER THE EXT MED HX WITH THE PATIENT AND SHE VERIFIED HOW SHE TAKES THEM. HER GLIPIZIDE IS STILL SHOWING 30/30 DAYS ON THE EXT MED HX HOWEVER SHE STATES ITS BID. LAST TIME SHE WAS HERE I CALLED THE PHARMACY AND THEY HAD TRANSMITTED THE DAYS SUPPLY INCORRECTLY. SHE LISTED HER OTC MEDS WELL. SHE STATES HER FRIEND AMAIRANI PHELPS HELPS HER WITH HER MEDICATIONS HOWEVER SHE LEFT TO GO TO A . THE NUMBER WE HAVE ON FILE FOR AMAIRANI IS NOT WORKING AND THE PATIENT DOES NOT HAVE AN UPDATED NUMBER AT THIS TIME.
[2018-12-05] MEDS: cefTRIAXone FOR IV USE 1,000 MG in WATER (STERILE) FOR INJECTION 10 ML IV SCH (14:07)
[2018-12-05] MEDS: AZITHROMYCIN INJECTION 500 MG in NS (IVPB) 250 ML IV SCH (14:07)
[2018-12-05 14:20] VITALS: BP 123/64
[2018-12-05 14:41] LABS: ALANINE AMINOTRANSFERASE 10 U/L (0-55); ALBUMIN 3.3 GM/DL (3.2-4.5); ALKALINE PHOSPHATASE 92 U/L (40-136); BILIRUBIN,TOTAL 0.4 MG/DL (0.1-1.0); BUN/CREATININE RATIO 23; CALCIUM 9.3 MG/DL (8.5-10.1); CARBON DIOXIDE 34 MMOL/L (21-32); CHLORIDE 102 MMOL/L (98-107); CREATININE SERUM 0.69 MG/DL (0.60-1.30); GFR ESTIMATED > 60; GLUCOSE 219 MG/DL (70-105); POTASSIUM 3.8 MMOL/L (3.6-5.0); SODIUM 143 MMOL/L (135-145); TOTAL PROTEIN 6.6 GM/DL (6.4-8.2)
[2018-12-05] MEDS ORDERED: RT-ALBUTEROL/IPRATROPIUM 3 ML (DUONEB) VIAL INH PRN ×2 (16:00)
[2018-12-05] MEDS: HYDROcodone/APAP 7.5 MG/325 MG (LORTAB, LORCET PLUS) TABLET PO PRN (16:35)
[2018-12-05] MEDS: ENOXAPARIN 40 MG/0.4 ML (LOVENOX) SYR SC SCH (16:35)
[2018-12-05] MEDS: predniSONE 20 MG TAB PO SCH (16:43)
[2018-12-05] MEDS: glipiZIDE 5 MG (GLUCOTROL) TAB PO SCH (16:43)
[2018-12-05 16:45] VITALS: BP 118/70
[2018-12-05] MEDS: ASPIRIN E.C. 81 MG (ECOTRIN) TAB PO SCH (16:45)
[2018-12-05] MEDS: RT-ALBUTEROL/IPRATROPIUM 3 ML (DUONEB) VIAL INH SCH ×2 (18:22→21:47)
[2018-12-05 20:06] VITALS: BP 137/74
[2018-12-05] MEDS: GABAPENTIN 300 MG (NEURONTIN) CAP PO SCH (22:01)
[2018-12-05] MEDS: MONTELUKAST 10 MG (SINGULAIR) TAB PO SCH (22:01)
[2018-12-05] MEDS: morphine ER 15 MG (MS CONTIN) TAB PO SCH (22:01)
[2018-12-05] MEDS: SERTRALINE 50 MG (ZOLOFT) TABLET PO SCH (22:01)
[2018-12-06 00:04] VITALS: BP 153/79
[2018-12-06] MEDS: HYDROcodone/APAP 7.5 MG/325 MG (LORTAB, LORCET PLUS) TABLET PO PRN (00:48)
[2018-12-06] MEDS: RT-ALBUTEROL/IPRATROPIUM 3 ML (DUONEB) VIAL INH SCH ×6 (02:08→22:00)
[2018-12-06 04:16] VITALS: BP 124/85
[2018-12-06 05:36] LABS: RED CELL DISTRIBUTION WIDTH 17.9 % (10.0-14.5); WHITE BLOOD COUNT 5.5 10^3/uL (4.3-11.0)
[2018-12-06 05:57] LABS: ALANINE AMINOTRANSFERASE 13 U/L (0-55); ALBUMIN 3.3 GM/DL (3.2-4.5); ALKALINE PHOSPHATASE 77 U/L (40-136); BILIRUBIN,TOTAL 0.4 MG/DL (0.1-1.0); BUN/CREATININE RATIO 26; CALCIUM 9.2 MG/DL (8.5-10.1); CARBON DIOXIDE 31 MMOL/L (21-32); CHLORIDE 101 MMOL/L (98-107); CREATININE SERUM 0.62 MG/DL (0.60-1.30); GFR ESTIMATED > 60; GLUCOSE 248 MG/DL (70-105); POTASSIUM 3.7 MMOL/L (3.6-5.0); SODIUM 143 MMOL/L (135-145); TOTAL PROTEIN 6.6 GM/DL (6.4-8.2)
[2018-12-06] MEDS: LEVOTHYROXINE 125 MCG (LEVOTHROID) TABLET PO SCH (06:25)
[2018-12-06] MEDS: predniSONE 20 MG TAB PO SCH (06:26)
[2018-12-06] MEDS: glipiZIDE 5 MG (GLUCOTROL) TAB PO SCH ×2 (06:26→15:17)
[2018-12-06 08:00] VITALS: BP 134/80
[2018-12-06] MEDS: morphine ER 15 MG (MS CONTIN) TAB PO SCH ×2 (09:52→21:23)
[2018-12-06] MEDS: PANTOPRAZOLE 40 MG (PROTONIX) TAB PO SCH ×2 (09:52→21:23)
[2018-12-06] MEDS: GABAPENTIN 300 MG (NEURONTIN) CAP PO SCH ×3 (09:52→21:23)
[2018-12-06 12:00] VITALS: BP 134/81
[2018-12-06] MEDS: MICONAZOLE 2% POWDER (DESENEX AF) 90 GM TOP SCH ×2 (12:00→21:24)
[2018-12-06] MEDS: inSUlin ASPART (NovoLOG) 1 UNIT/0.01 ML (CHARGE PER UNIT) SC SCH ×3 (12:00→21:23)
[2018-12-06] MEDS: cefTRIAXone FOR IV USE 1,000 MG in WATER (STERILE) FOR INJECTION 10 ML IV SCH (12:01)
[2018-12-06] MEDS: AZITHROMYCIN INJECTION 500 MG in NS (IVPB) 250 ML IV SCH (12:02)
--- NOTE | 2018-12-06 14:00 | NUR ---
Pastoral care visit.
[2018-12-06] MEDS: ASPIRIN E.C. 81 MG (ECOTRIN) TAB PO SCH (15:16)
[2018-12-06] MEDS: ENOXAPARIN 40 MG/0.4 ML (LOVENOX) SYR SC SCH (15:16)
[2018-12-06 15:46] VITALS: BP 131/66
--- NOTE | 2018-12-06 16:36 | Progress Note ---
Subjective Subjective/Events-last exam Patient states that she is feeling somewhat better. Still coughing up alot but denies any more orange/red sputum. No fevers or chills overnight. Tolerating PO diet and ambulation Review of Systems General: No Chills Pulmonary: Dyspnea, Cough Cardiovascular: No: Chest Pain, Palpitations, Orthopnea Gastrointestinal: No: Nausea, Vomiting, Diarrhea, Constipation Musculoskeletal: back pain (chronic) Focused Exam Lactate Level 12/05/18 14:10: Lactic Acid Level 1.27 Objective Exam Last Set of Vital Signs Vital Signs Date Time Temp Pulse Resp B/P (MAP) Pulse Ox O2 Delivery O2 Flow Rate FiO2 12/06/18 15:46 36.9 92 18 131/66 (87) 95 Nasal Cannula 3.00 12/05/18 14:20 32 Capillary Refill : Less Than 3 Seconds I&O Intake and Output 12/06/18 00:00 Intake Total 1210 ml Output Total 900 ml Balance 310 ml Intake Oral 950 ml IV Total 260 ml Output Urine Total 900 ml Daily Weight Change Unsure Unsure General: Alert, Oriented X3, Cooperative Lungs: Other (no air flow at the bases, + crackles, normal work of breathing) Abdomen: Normal Bowel Sounds, Soft, No Tenderness, No Masses Extremities: Other (1+ pitting edema bilaterally) Neuro: Normal Speech, Sensation Intact, Cranial Nerves 3-12 NL Results/Procedures Lab Laboratory Tests 12/05/18 16:35: Glucometer 187H 12/05/18 19:59: Glucometer 277H 12/06/18 04:29: Glucometer 313H 12/06/18 05:00: White Blood Count 5.5, Red Blood Count 3.68L, Hemoglobin 9.0L, Hematocrit 31L, Mean Corpuscular Volume 85, Mean Corpuscular Hemoglobin 24L, Mean Corpuscular Hemoglobin Concent 29L, Red Cell Distribution Width 17.9H, Platelet Count 152, Mean Platelet Volume 11.0H, Sodium Level 143, Potassium Level 3.7, Chloride Level 101, Carbon Dioxide Level 31, Anion Gap 11, Blood Urea Nitrogen 16, Creatinine 0.62, Estimat Glomerular Filtration Rate > 60, BUN/Creatinine Ratio 26, Glucose Level 248H, Calcium Level 9.2, Corrected Calcium 9.8, Total Bilirubin 0.4, Aspartate Amino Transf (AST/SGOT) 24, Alanine Aminotransferase (ALT/SGPT) 13, Alkaline Phosphatase 77, Total Protein 6.6, Albumin 3.3 12/06/18 05:09: Glucometer 246H 12/06/18 10:47: Glucometer 360H 12/06/18 16:05: Glucometer 320H Microbiology 12/06/18 Influenza Types A,B Antigen (OVIDIO) - Final, Complete Assessment/Plan Assessment/Plan Assessment & Plan Assessment: 1. Pneumonia 2. Malignant pleural effusion 3. R/o influenza Plan: 1. Order RT for breathing treatments, sputum culture, steroids, empiric antibiotics 2. CXR to see if effusion has grown 3. Influenza swab (1) Respiratory failure with hypoxia Status: Chronic Assessment & Plan: - CXR shows worsening pleural effusion since Sunday, Start antibiotics, steroids, MAT protocol 12/06: Discussed new lesion on her lung and the fact that her cancer is progressing, She is on her home oxygen and has been up walking around. Discussed hospice care, patient's caregiver was not present this AM so josias was going to talk to her later. Qualifiers: Qualified Codes: J96.21 - Acute and chronic respiratory failure with hypoxia (2) Malignant pleural effusion Status: Chronic (3) Diabetes mellitus type 2 with complications Status: Chronic Assessment & Plan: - Continue home meds except Metformin while in the hospital (4) CAP (community acquired pneumonia) Status: Acute Assessment & Plan: - Continue antibiotics Qualifiers: Qualified Codes: J18.9 - Pneumonia, unspecified organism (5) DVT prophylaxis Status: Acute Assessment & Plan: - Lovenox Clinical Quality Measures DVT/VTE Risk/Contraindication: Risk Factor Score Per Nursin RFS Level Per Nursing on Admit: 4+=Very High JOHNNY GARZON MD Dec 06, 2018 16:36
[2018-12-06 19:23] VITALS: BP 124/67
[2018-12-06] MEDS: MONTELUKAST 10 MG (SINGULAIR) TAB PO SCH (21:23)
[2018-12-06] MEDS: SERTRALINE 50 MG (ZOLOFT) TABLET PO SCH (21:23)
[2018-12-07 00:30] VITALS: BP_SYST 125; BP_SYST 129; BP_DIAS 62; BP_DIAS 69
[2018-12-07] MEDS: RT-ALBUTEROL/IPRATROPIUM 3 ML (DUONEB) VIAL INH SCH ×6 (02:14→21:18)
[2018-12-07 04:00] VITALS: BP 165/90
[2018-12-07] MEDS: inSUlin ASPART (NovoLOG) 1 UNIT/0.01 ML (CHARGE PER UNIT) SC SCH ×4 (06:19→21:21)
[2018-12-07] MEDS: predniSONE 20 MG TAB PO SCH (06:31)
[2018-12-07] MEDS: LEVOTHYROXINE 125 MCG (LEVOTHROID) TABLET PO SCH (06:31)
[2018-12-07] MEDS: glipiZIDE 5 MG (GLUCOTROL) TAB PO SCH ×2 (06:31→17:04)
[2018-12-07 06:58] LABS: BASOPHILS % (AUTO) 0 % (0-10); EOSINOPHILS # (AUTO) 0.1 10^3/uL (0.0-0.3); EOSINOPHILS % (AUTO) 1 % (0-10); HEMATOCRIT 34 % (35-52); HEMOGLOBIN 9.8 G/DL (11.5-16.0); LYMPHOCYTES % (AUTO) 14 % (12-44); MEAN CORPUSCULAR HEMOGLOBIN 25 PG (25-34); MEAN CORPUSCULAR HGB CONC 29 G/DL (32-36); MEAN CORPUSCULAR VOLUME 85 FL (80-99); MEAN PLATELET VOLUME 11.1 FL (7.4-10.4); MONOCYTES # (AUTO) 0.8 X 10^3 (0.0-1.0); MONOCYTES % (AUTO) 11 % (0-12); NEUTROPHILS # (AUTO) 5.6 X 10^3 (1.8-7.8); NEUTROPHILS % (AUTO) 75 % (42-75); PLATELET COUNT 177 10^3/uL (130-400); WHITE BLOOD COUNT 7.5 10^3/uL (4.3-11.0)
[2018-12-07 07:24] LABS: ALANINE AMINOTRANSFERASE 13 U/L (0-55); ALBUMIN 3.6 GM/DL (3.2-4.5); ALKALINE PHOSPHATASE 94 U/L (40-136); BILIRUBIN,TOTAL 0.5 MG/DL (0.1-1.0); BUN/CREATININE RATIO 23; CALCIUM 9.4 MG/DL (8.5-10.1); CARBON DIOXIDE 30 MMOL/L (21-32); CHLORIDE 101 MMOL/L (98-107); CREATININE SERUM 0.66 MG/DL (0.60-1.30); GFR ESTIMATED > 60; GLUCOSE 179 MG/DL (70-105); POTASSIUM 3.5 MMOL/L (3.6-5.0); SODIUM 142 MMOL/L (135-145)
[2018-12-07 08:00] VITALS: BP 135/80
[2018-12-07] MEDS: PANTOPRAZOLE 40 MG (PROTONIX) TAB PO SCH ×2 (08:14→20:24)
[2018-12-07] MEDS: morphine ER 15 MG (MS CONTIN) TAB PO SCH ×3 (08:14→20:55)
[2018-12-07] MEDS: GABAPENTIN 300 MG (NEURONTIN) CAP PO SCH ×3 (08:14→20:24)
[2018-12-07] MEDS: MICONAZOLE 2% POWDER (DESENEX AF) 90 GM TOP SCH ×2 (08:41→20:24)
[2018-12-07 12:00] VITALS: BP 139/79
[2018-12-07] MEDS: cefTRIAXone FOR IV USE 1,000 MG in WATER (STERILE) FOR INJECTION 10 ML IV SCH (12:05)
[2018-12-07] MEDS: AZITHROMYCIN INJECTION 500 MG in NS (IVPB) 250 ML IV SCH (12:34)
--- NOTE | 2018-12-07 13:12 | Progress Note - Hospitalist ---
Subjective HPI/CC On Admission Date Seen by Provider: Dec 07, 2018 Time Seen by Provider: 12:00 Subjective/Events-last exam Patient is sitting up eating her cheeseburger and is asking about when she is going to be going home. She feels better than she did when she came in denies having any cough although she remains dyspneic. Review of Systems Neurological: Weakness Focused Exam Lactate Level 12/05/18 14:10: Lactic Acid Level 1.27 Objective Exam Vital Signs Vital Signs Date Time Temp Pulse Resp B/P (MAP) Pulse Ox O2 Delivery O2 Flow Rate FiO2 12/07/18 12:00 36.9 80 20 139/79 (99) 96 Nasal Cannula 3.00 12/05/18 14:20 32 Capillary Refill : Less Than 3 Seconds General Appearance: No Apparent Distress, WD/WN Neck: Supple Respiratory: No Accessory Muscle Use, Crackles, Decreased Breath Sounds Cardiovascular: Regular Rate, Rhythm, No Gallop Gastrointestinal: Soft Extremity: Non Tender Neurologic/Psychiatric: Alert, No Motor/Sensory Deficits, Normal Mood/Affect Results/Procedures Lab Laboratory Tests 12/07/18 06:25 Patient resulted labs reviewed. Assessment/Plan Assessment and Plan Assess & Plan/Chief Complaint 1. Pneumonia day number 2 Zithromax and Rocephin 2. Malignant pleural effusion-secondary to metastatic cancer the breast Clinical Quality Measures DVT/VTE Risk/Contraindication: Risk Factor Score Per Nursin RFS Level Per Nursing on Admit: 4+=Very High HARLAN KAPLAN MD Dec 07, 2018 13:12
[2018-12-07 16:00] VITALS: BP 116/70
[2018-12-07] MEDS: ASPIRIN E.C. 81 MG (ECOTRIN) TAB PO SCH (17:04)
[2018-12-07] MEDS: ENOXAPARIN 40 MG/0.4 ML (LOVENOX) SYR SC SCH (17:05)
[2018-12-07 19:29] VITALS: BP 121/66
--- NOTE | 2018-12-07 19:34 | NUR ---
this rn contacted dr. fitch to clarify the time on the cbc & cmp ordered-this rn was informed that dr. fitch wanted this for 12/08/18 in the AM. order was changed to reflect this.
[2018-12-07] MEDS: SERTRALINE 50 MG (ZOLOFT) TABLET PO SCH (20:24)
[2018-12-07] MEDS: MONTELUKAST 10 MG (SINGULAIR) TAB PO SCH (20:24)
[2018-12-08] VITALS (8 sets, daily range): BP systolic 102–132; BP diastolic 61–79
[2018-12-08] MEDS: RT-ALBUTEROL/IPRATROPIUM 3 ML (DUONEB) VIAL INH SCH ×6 (02:04→23:15)
[2018-12-08 05:41] LABS: BASOPHILS % (AUTO) 0 % (0-10); EOSINOPHILS # (AUTO) 0.1 10^3/uL (0.0-0.3); EOSINOPHILS % (AUTO) 1 % (0-10); HEMATOCRIT 31 % (35-52); HEMOGLOBIN 8.9 G/DL (11.5-16.0); LYMPHOCYTES % (AUTO) 17 % (12-44); MEAN CORPUSCULAR HEMOGLOBIN 24 PG (25-34); MEAN CORPUSCULAR HGB CONC 29 G/DL (32-36); MEAN CORPUSCULAR VOLUME 84 FL (80-99); MEAN PLATELET VOLUME 10.4 FL (7.4-10.4); MONOCYTES # (AUTO) 0.7 X 10^3 (0.0-1.0); MONOCYTES % (AUTO) 12 % (0-12); NEUTROPHILS % (AUTO) 69 % (42-75); PLATELET COUNT 159 10^3/uL (130-400); RED CELL DISTRIBUTION WIDTH 18.1 % (10.0-14.5); WHITE BLOOD COUNT 5.7 10^3/uL (4.3-11.0)
[2018-12-08 06:14] LABS: ALANINE AMINOTRANSFERASE 14 U/L (0-55); ALBUMIN 3.2 GM/DL (3.2-4.5); ALKALINE PHOSPHATASE 82 U/L (40-136); BILIRUBIN,TOTAL 0.5 MG/DL (0.1-1.0); BUN/CREATININE RATIO 25; CALCIUM 9.2 MG/DL (8.5-10.1); CARBON DIOXIDE 32 MMOL/L (21-32); CHLORIDE 99 MMOL/L (98-107); GFR ESTIMATED > 60; GLUCOSE 132 MG/DL (70-105); POTASSIUM 3.3 MMOL/L (3.6-5.0); SODIUM 140 MMOL/L (135-145); TOTAL PROTEIN 6.2 GM/DL (6.4-8.2)
[2018-12-08] MEDS: inSUlin ASPART (NovoLOG) 1 UNIT/0.01 ML (CHARGE PER UNIT) SC SCH ×4 (06:14→20:42)
[2018-12-08] MEDS: LEVOTHYROXINE 125 MCG (LEVOTHROID) TABLET PO SCH (06:22)
[2018-12-08] MEDS: predniSONE 20 MG TAB PO SCH (06:22)
[2018-12-08] MEDS: glipiZIDE 5 MG (GLUCOTROL) TAB PO SCH ×2 (06:22→15:35)
[2018-12-08] MEDS: HYDROcodone/APAP 7.5 MG/325 MG (LORTAB, LORCET PLUS) TABLET PO PRN (07:52)
[2018-12-08] MEDS: GABAPENTIN 300 MG (NEURONTIN) CAP PO SCH ×3 (07:52→20:41)
[2018-12-08] MEDS: PANTOPRAZOLE 40 MG (PROTONIX) TAB PO SCH ×2 (07:52→20:41)
[2018-12-08] MEDS: morphine ER 15 MG (MS CONTIN) TAB PO SCH ×2 (09:00→20:41)
[2018-12-08] MEDS: MICONAZOLE 2% POWDER (DESENEX AF) 90 GM TOP SCH ×2 (09:45→20:47)
[2018-12-08] MEDS: cefTRIAXone FOR IV USE 1,000 MG in WATER (STERILE) FOR INJECTION 10 ML IV SCH (11:42)
[2018-12-08] MEDS: AZITHROMYCIN INJECTION 500 MG in NS (IVPB) 250 ML IV SCH (12:07)
--- NOTE | 2018-12-08 12:34 | Progress Note - Hospitalist ---
Subjective HPI/CC On Admission Date Seen by Provider: Dec 08, 2018 Time Seen by Provider: 11:30 Subjective/Events-last exam Patient is sitting in her chair and has no complaints. She says she's feeling better. She does observe that her blood sugars been running higher. Review of Systems Neurological: Weakness Focused Exam Lactate Level 12/05/18 14:10: Lactic Acid Level 1.27 Objective Exam Vital Signs Vital Signs Date Time Temp Pulse Resp B/P (MAP) Pulse Ox O2 Delivery O2 Flow Rate FiO2 12/08/18 10:27 36.8 90 96 12/08/18 08:00 Nasal Cannula 3.00 12/08/18 08:00 20 129/70 (89) 12/05/18 14:20 32 Capillary Refill : Less Than 3 Seconds General Appearance: No Apparent Distress, WD/WN Neck: Normal Inspection, Supple Respiratory: Crackles, Decreased Breath Sounds, Rales Cardiovascular: Regular Rate, Rhythm, No Gallop, No Murmur Gastrointestinal: Normal Bowel Sounds, Non Tender, Soft Rectal: Deferred Back: Normal Inspection Extremity: No Calf Tenderness Neurologic/Psychiatric: Alert, Normal Mood/Affect Skin: Warm/Dry Results/Procedures Lab Laboratory Tests 12/08/18 05:30 Patient resulted labs reviewed. Assessment/Plan Assessment and Plan Assess & Plan/Chief Complaint 1. Pneumonia day number 3 Zithromax and Rocephin 2. Malignant pleural effusion-secondary to metastatic cancer the breast 3. Type II diabetes on insulin sxy-go-ytervcd-secondary to steroids 4. Hypokalemia we'll replace Clinical Quality Measures DVT/VTE Risk/Contraindication: Risk Factor Score Per Nursin RFS Level Per Nursing on Admit: 4+=Very High HARLAN KAPLAN MD Dec 08, 2018 12:34
[2018-12-08] MEDS: KCL 10 MEQ TAB (MICRO K) PO SCH (13:20)
[2018-12-08] MEDS: ENOXAPARIN 40 MG/0.4 ML (LOVENOX) SYR SC SCH (15:35)
[2018-12-08] MEDS: ASPIRIN E.C. 81 MG (ECOTRIN) TAB PO SCH (17:13)
[2018-12-08] MEDS: MONTELUKAST 10 MG (SINGULAIR) TAB PO SCH (20:41)
[2018-12-08] MEDS: SERTRALINE 50 MG (ZOLOFT) TABLET PO SCH (20:42)
[2018-12-09] MEDS: RT-ALBUTEROL/IPRATROPIUM 3 ML (DUONEB) VIAL INH SCH ×6 (01:45→22:25)
[2018-12-09] MEDS: HYDROcodone/APAP 7.5 MG/325 MG (LORTAB, LORCET PLUS) TABLET PO PRN (02:17)
[2018-12-09 04:00] VITALS: BP 115/67
[2018-12-09] MEDS: inSUlin ASPART (NovoLOG) 1 UNIT/0.01 ML (CHARGE PER UNIT) SC SCH ×4 (06:05→21:00)
[2018-12-09] MEDS: KCL 10 MEQ TAB (MICRO K) PO SCH (06:14)
[2018-12-09] MEDS: glipiZIDE 5 MG (GLUCOTROL) TAB PO SCH ×2 (06:14→16:56)
[2018-12-09] MEDS: predniSONE 20 MG TAB PO SCH (06:14)
[2018-12-09] MEDS: LEVOTHYROXINE 125 MCG (LEVOTHROID) TABLET PO SCH (06:14)
[2018-12-09 08:21] VITALS: BP 120/50
[2018-12-09] MEDS: GABAPENTIN 300 MG (NEURONTIN) CAP PO SCH ×3 (08:35→20:53)
[2018-12-09] MEDS: PANTOPRAZOLE 40 MG (PROTONIX) TAB PO SCH ×2 (08:35→20:53)
[2018-12-09] MEDS: morphine ER 15 MG (MS CONTIN) TAB PO SCH ×2 (08:35→20:53)
[2018-12-09] MEDS: MICONAZOLE 2% POWDER (DESENEX AF) 90 GM TOP SCH ×2 (08:35→21:00)
--- NOTE | 2018-12-09 11:19 | Occupational Therapy Eval ---
OT Evaluation-General/PLF Medical Diagnosis Admission Date Dec 05, 2018 at 10:45 Medical Diagnosis: Pneumonia, malignant pleural effusion Onset Date: Dec 05, 2018 Therapy Diagnosis Therapy Diagnosis: impaired ADLs and functional mobility Height/Weight Height (Feet): 5 Height (Inches): 1.00 Weight (Pounds): 162 Weight (Ounces): 0.0 Precautions Precautions/Isolations: Fall Prevention Safety Interventions: None Referral Physician: vashti Referral Reason: Activity Tolerance, Self Care, Evaluation/Treatment, Strengthening/ROM Medical History Pertinent Medical History: DM, HTN, Hypothroidism, Neuropathy Current History Per H&P: "Pt began feeling bad on Sunday and didn't attend [facility]. Hx of a malignant pleural effusion. Feeling short of breath and coughing with phlegm production. She stated that her phlegm was clear, but caregiver states that pt is not a reliable historian. Yesterday morning, her blood sugar was 150, but 4 hours later, the pt complained of being shaky. Blood sugar was rechecked and was 269. This morning O2 sat was checked by home health nurse and was 92 @ 0815, followed by 90 @ 0835. Pt stepped on O2 cord and panicked about not being able to breathe. Went to [facility] and O2 sat was 84. There, she coughed up phlegm that was orange and brown. Pt is also complaining of back pain. She rated it a 5/10 and described it as an ache. She localized it to her low back which is consistent with compression fractures in this location." Reviewed History: Yes Social History Home: Single Level Current Living Status: Alone Entry Into Home: Stairs With Railing Steps Into Home: 3 ADL-Prior Level of Function SCALE: Activities may be completed with or without assistive devices. 1-Vsiswvoewc-zxcyrod completes the activity by him/herself with no assistance from a helper. 5-Set-up or Clean-up Assistance-helper sets up or cleans up; patient completes activity. Ravia assists only prior to or following the activity. 4-Supervision or Touching Assistance-helper provides verbal cues and/or touchin g/steadying and/or contact guard assistance as patient completes activity. Assistance may be provided throughout the activity or intermittently. 3-Partial/Moderate Assistance-helper does LESS THAN HALF the effort. Ravia lifts, holds or supports trunk or limbs, but provides less than half the effort. 2-Substantial/Maximal Assistance-helper does MORE THAN HALF the effort. Ravia lifts or holds trunk or limbs and provides more than half the effort. 4-Pqsluseaz-tjtmiy does ALL the effort. Patient does none of the effort to complete the activity. Or, the assistance of 2 or more helpers is required for the patient to complete the activity. If activity was not attempted, code reason: 7-Patient Refused. 9-Not Applicable-not attempted and the patient did not perform the activity before the current illness, exacerbation or injury. 10-Not Attempted due to Environmental Limitations-(lack of equipment, weather restraints, etc.). 88-Not Attempted due to Medical Conditions or Safety Concerns. ADL PLOF Comments Pt reported she lived alone prior to coming to the hospital, she has friends/caregivers come assist her with getting into/out of the shower. Reports she is independent with all other ADLs. Pt uses oxygen at home prior to hospitalization, stating she is usually on 3L. Self Care: Needed Some Help Functional Cognition: Independent DME/Equipment: Bath Chair, Shower DME/Equipment Comments FWW Drive Self: No OT Current Status Subjective Pt seated on toilet at start of session, about to take a shower with nursing informatics specialist. Agreeable to OT eval/tx this AM. Pt did not report any pain this session. Mental Status/Objective Patient Orientation: Person, Place, Time, Situation Attachments: Central Line, Oxygen Current Glasses/Contacts: Yes Hearing Aids: No Dentures/Partials: No Hand Dominance: Right Upper Extremity ROM WFL, pt able to flex shoulders to approximately 160 degrees, can reach the back of her head to wash her hair during shower. Upper Extremity Coordination WFL Upper Extremity Sensation pt reports no changes in sensation BUE Upper Extremity Strength 3+/5 MMT BUE ADL-Treatment Bathing Location: L Arm, R Arm, L Upper Leg, R Upper Leg, L Lower Leg (including foot), R Lower Leg (including foot), Chest, Abdomen, Buttocks, Perineal Area Shower/Bathe Self (QC): 3 (Pt able to wash all areas, assistance required to manage water in order to keep central line dry, and min A for balance to stand at GB. Pt also required assistance finding objects during shower due to low vision. Min verbal cues for sequencing of task.) Upper Body Dressing (QC): 3 (Pt able to thread BUE into gowns sleeves, required assistance tying hospital gown.) Lower Body Dressing (QC): 4 (Pt able to thread BLE into underwear and manage up on hip. CGA for balance during task.) On/Off Footwear (QC): 4 (Pt able to omar/doff BLE socks, requiring supervision for balance during task.) Toileting Hygiene (QC): 4 (Pt able to complete toilet hygiene/clothing management, SBA for balance.) Toilet Transfer (QC): 4 (CGA during transfer) Other Treatments Pt seated on toilet with nursing informatics specialist at start of session, agreeable to OT eval/tx. Pt transferred to shower and completed showering/dressing. Pt then performed functional mobility with FWW to recliner. Pt required min-mod verbal cues during session secondary to decreased vision and sequencing of task. Post OT session, pt seated in recliner, call light in reach and all needs met. Education OT Patient Education: Correct positioning, Energy conservation, Modified ADL techniques, Progress toward Goal/Update tx plan, Purpose of tx/functional act ivities, Transfer techniques Teaching Recipient: Patient Teaching Methods: Demonstration, Discussion Response to Teaching: Verbalize Understanding OT Short Term Goals Short Term Goals Time Frame: Dec 25, 2018 Upper Body Dressing(FIM): 4 Toileting(FIM): 5 Toilet/Commode Transfer(FIM): 5 1=Demonstrate adherence to instructed precautions during ADL tasks. 2=Patient will verbalize/demonstrate understanding of assistive devices/modifications for ADL. 3=Patient will improve strength/tolerance for activity to enable patient to perform ADL's. OT Wood Box Maker Goals Group Home Goals Time Frame: Jan 03, 2019 Oral Hygiene (QC): 6 Shower/Bathe Self (QC): 4 Upper Body Dressing (QC): 5 Lower Body Dressing (QC): 5 On/Off Footwear (QC): 5 Toileting Hygiene (QC): 6 Toilet/Commode Transfer (QC): 6 1=Demonstrate adherence to instructed precautions during ADL tasks. 2=Patient will verbalize/demonstrate understanding of assistive devices/modifications for ADL. 3=Patient will improve strength/tolerance for activity to enable patient to perform ADL's. OT Education/Plan Problem List/Assessment Assessment: Decreased Activ Tolerance, Decreased UE Strength, Impaired Funct Balance, Impaired I ADL's, Impaired Self-Care Skills Discharge Recommendations Plan/Recommendations: Continue POC Therapy Discharge Recommendati: Scheduled Assistance Treatment Plan/Plan of Care Treatment,Training & Education: Yes Patient would benefit from OT for education, treatment and training to promote independence in ADL's, mobility, safety and/or upper extremity function for ADL's. Treatment Duration: Jan 03, 2019 Frequency: 5 times per week Estimated Hrs Per Day: .25 hour per day Agreement: Yes Rehab Potential: Fair Time/GCodes Start Time: 10:40 Stop Time: 11:09 Total Time Billed (hr/min): 29 Billed Treatment Time 1, EVL [id number], ADL [id number] KARY MACK OT Dec 09, 2018 11:19
[2018-12-09] MEDS: cefTRIAXone FOR IV USE 1,000 MG in WATER (STERILE) FOR INJECTION 10 ML IV SCH (11:23)
[2018-12-09 12:00] VITALS: BP 113/59
[2018-12-09] MEDS: AZITHROMYCIN INJECTION 500 MG in NS (IVPB) 250 ML IV SCH (12:09)
--- NOTE | 2018-12-09 12:14 | Physical Therapy Evaluation ---
PT Evaluation-General Medical Diagnosis Admission Date Dec 05, 2018 at 10:45 Medical Diagnosis: Pneumonia, malignant pleural effusion Onset Date: Dec 05, 2018 Therapy Diagnosis Therapy Diagnosis: Debility Height/Weight Height (Feet): 5 Height (Inches): 1.00 Weight (Pounds): 162 Weight (Ounces): 0.0 Precautions Precautions/Isolations: Fall Prevention Weight Bear Status Right Lower Extremity: Right Full Weight Bearing Left Lower Extremity: Left Full Weight Bearing Referral Physician: Avinash Reason for Referral: Evaluation/Treatment Medical History Pertinent Medical History: DM, HTN, Hypothroidism, Neuropathy Reviewed History: Yes Social History Home: Single Level Current Living Status: Alone Entry Into Home: Stairs With Railing PT Steps Into Home: 3 Prior Prior Level of Function SCALE: Activities may be completed with or without assistive devices. 7-Suiqswwdzh-pqjmrwg completes the activity by him/herself with no assistance from a helper. 5-Set-up or Clean-up Assistance-helper sets up or cleans up; patient completes activity. Lodge assists only prior to or following the activity. 4-Supervision or Touching Assistance-helper provides verbal cues and/or touching/steadying and/or contact guard assistance as patient completes activity. Assistance may be provided throughout the activity or intermittently. 3-Partial/Moderate Assistance-helper does LESS THAN HALF the effort. Lodge lifts, holds or supports trunk or limbs, but provides less than half the effort. 2-Substantial/Maximal Assistance-helper does MORE THAN HALF the effort. Lodge lifts or holds trunk or limbs and provides more than half the effort. 2-Rrgeudzwn-mkrjmt does ALL the effort. Patient does none of the effort to complete the activity. Or, the assistance of 2 or more helpers is required for the patient to complete the activity. If activity was not attempted, code reason: 7-Patient Refused. 9-Not Applicable-not attempted and the patient did not perform the activity before the current illness, exacerbation or injury. 10-Not Attempted due to Environmental Limitations-(lack of equipment, weather restraints, etc.). 88-Not Attempted due to Medical Conditions or Safety Concerns. Bed Mobility: 6 Transfers (B,C,W/C): 6 Gait: 6 Stairs: 6 Indoor Mobility (Ambulation): Independent Stairs: Independent Prior Devices Use: Walker PT Evaluation-Current Subjective Patient agrees to PT at this time. She reports she is feeling fine and was doing well before this hospitalization. Pain Numeric Pain Scale: 0-No Pain Location: No Pain Reported Objective Patient Orientation: Normal For Age Attachments: Oxygen ROM/Strength ROM Lower Extremities WFL Strength Lower Extremities L hip flexion: 5, R hip flexion: 4, L knee flexion/extension: 4, R knee flexion/extension: 3 Integumentary/Posture Bowel Incontinence: No Bladder Incontinence: No Neuromuscular (Tone, Coordination, Reflexes) WFL Sensory Vision: Functional Hearing: Functional Hand Dominance: Right Transfers Sit to Stand (QC): 5 Gait Does the Patient Walk?: Yes Mode of Locomotion: Walk Anticipated Mode of Locomotion: Walk Distance (FIM): 1=608-44 ft Walk 10 feet (QC): 5 Walk 50 ft with 2 Turns(QC): 5 Walk 150 ft (QC): 5 Distance: 200' Gait Assistive Device: FWW Balance Sitting Static: Normal Sitting Dynamic: Normal Standing Static: Normal Standing Dynamic: Normal Assessment/Needs Patient tolerated gait and assessment activities well. Patient demonstrated good ambulation with FWW but required cues to remain inside walker while ambulating. Distinct weakness noted in R leg compared to L. Rehab Potential: Fair PT Skilled Nursing Goals Skilled Nursing Goals Sit to Lying (QC): 6 Lying-Sitting on Side/Bed(QC): 6 Sit to Stand (QC): 6 Roll Left to Right (QC): 6 Chair/Otc-xt-Vjnzn Xfer(QC): 6 Car Transfer (QC): 6 Does the Patient Walk: Yes Distance: 300' Walk 10 feet (QC): 6 Walk 10ft-Uneven Surface(QC): 6 Walk 50ft with 2 Turns (QC): 6 Walk 150 ft (QC): 6 Gait Assistive Device: FWW # of Steps: 3 1 Step (curb) (QC): 6 4 Steps (QC): 6 PT Plan Problem List Problem List: Activity Tolerance, Functional Strength, Safety, Balance, Gait, Transfer, Bed Mobility Treatment/Plan Treatment Plan: Continue Plan of Care Treatment Plan: Bed Mobility, Education, Functional Activity Bernardo, Functional Strength, Gait, Safety, Therapeutic Exercise, Transfers Treatment Duration: Dec 19, 2018 Frequency: 11 times per week Estimated Hrs Per Day: .5 hour per day Patient and/or Family Agrees t: Yes Time/GCodes Time In: 1140 Time Out: 1151 Total Billed Treatment Time: 11 Total Billed Treatment 1 visit EVLow 11 min LUCAS SINGLETARY PT Dec 09, 2018 12:14
--- NOTE | 2018-12-09 12:44 | NUR ---
Palliative Care RN in to see patient. She is sitting up in the chair with no complaints and says "I hope so" when asked if she feels better. Patient has metastatic breast cancer. She had signed on to hospice previously as she is not receiving treatment currently and has declined with significant weight loss in the last months. Patient reportedly has the request to not in the hospital, but rather would prefer to at home. She confirmed this when asked. When discussing her cancer and treatments, she reports that she has had chemo and radiation in the past " but the cancer came back". She also reports that Dr. Trinh wants to start her back "on the pill", by Yelitza. Not sure what the pill as she could tell me. Will continue to flow and offer assistance as needed. She will likely return to her home with current caregiving arrangement
[2018-12-09] MEDS: ENOXAPARIN 40 MG/0.4 ML (LOVENOX) SYR SC SCH (15:51)
[2018-12-09 16:25] VITALS: BP 107/63
[2018-12-09] MEDS: ASPIRIN E.C. 81 MG (ECOTRIN) TAB PO SCH (17:00)
--- NOTE | 2018-12-09 17:01 | Progress Note - Hospitalist ---
KIM MARLOW MED STUDENT 12/09/18 1701: Subjective HPI/CC On Admission Date Seen by Provider: Dec 09, 2018 Time Seen by Provider: 08:20 Subjective/Events-last exam CC: Pneumonia * Reports feeling fine today, continues to have productive cough but denies dyspnea, fever, chills. No new complaints. * Reports continued CP that she attributes to her malignant pleural effusion. * Hgb 8.9, Hct 31, MCH 24, RDW 18.1, glucometer 381. Review of Systems General: No Chills HEENT: No Head Aches, No Sinus Congestion Pulmonary: No Dyspnea; Cough Gastrointestinal: No: Nausea, Vomiting, Abdominal Pain, Diarrhea, Constipation Genitourinary: No Dysuria, No Frequency, No Hematuria Musculoskeletal: back pain (chronic) Neurological: No: Numbness Objective Exam Vital Signs Vital Signs Date Time Temp Pulse Resp B/P (MAP) Pulse Ox O2 Delivery O2 Flow Rate FiO2 12/09/18 16:25 36.7 90 18 107/63 (78) 99 Nasal Cannula 3.00 12/05/18 14:20 32 Capillary Refill : Less Than 3 Seconds General Appearance: No Apparent Distress Respiratory: No Accessory Muscle Use, No Respiratory Distress, Crackles (left mid and lower post) Cardiovascular: Regular Rate, Rhythm, No Edema, No Gallop, No Murmur, Normal Peripheral Pulses Extremity: No Calf Tenderness, No Pedal Edema Neurologic/Psychiatric: Alert, Oriented x3, Normal Mood/Affect Results/Procedures Lab Patient resulted labs reviewed. Assessment/Plan Assessment and Plan Assess & Plan/Chief Complaint Assessment: 1. Pneumonia 2. Malignant pleural effusion secondary to metastatic breast cancer 3. DM2 Plan: 1. Continue zithromax and rocephin 2. Continue medications for chronic conditions 3. Continue DVT propylaxis 4. Continue PT/OT 5. Continue following with Dr. Hilario 6. Continue contact with Palliative Care Clinical Quality Measures DVT/VTE Risk/Contraindication: Risk Factor Score Per Nursin RFS Level Per Nursing on Admit: 4+=Very High PATTI CRUZ DO 12/09/18 2019: Subjective Subjective/Events-last exam Pt is doing pretty well today Home O2 24/7 at 2 liters already arranged Will initiate PT and OT and get her up and moving around today in preparation for DC tomorrow Sees Dr. Trinh on a regular basis Her bowels are moving and she is eating and drinking well Conferred with RN checked meds and labs She does have a walker at home she gets around with and she does have people that help her Review of Systems Pulmonary: Dyspnea, Cough Objective Exam General Appearance: No Apparent Distress, WD/WN, Chronically ill, Thin Respiratory: No Accessory Muscle Use, No Respiratory Distress, Crackles (left mid and lower post), Decreased Breath Sounds Cardiovascular: Regular Rate, Rhythm Neurologic/Psychiatric: Alert, Oriented x3, No Motor/Sensory Deficits, Normal Mood/Affect, Disoriented Assessment/Plan Assessment and Plan Assess & Plan/Chief Complaint PT/OT Ambulate Abx DC tomorrow Diagnosis/Problems Diagnosis/Problems (1) Malignant pleural effusion Status: Chronic (2) Diabetes mellitus type 2 with complications Status: Chronic (3) CAP (community acquired pneumonia) Status: Acute Qualifiers: Qualified Codes: J18.9 - Pneumonia, unspecified organism Supervisory-Addendum Brief Verification & Attestation Participated in pt care: history, MDM, physical Personally performed: exam, history, MDM, supervision of care Care discussed with: Medical Student Procedures: n/a Results interpretation: Verified all documentation Verification and Attestation of Medical Student E/M Service A medical student performed and documented this service in my presence. I reviewed and verified all information documented by the medical student and made modifications to such information, when appropriate. I personally performed the physical exam and medical decision making. Patti Cruz, Dec 09, 2018,20:19 KIM MARLOW MED STUDENT Dec 09, 2018 17:01 PATTI CRUZ DO Dec 09, 2018 20:19
[2018-12-09 20:46] VITALS: BP 111/68
[2018-12-09] MEDS: SERTRALINE 50 MG (ZOLOFT) TABLET PO SCH (20:53)
[2018-12-09] MEDS: MONTELUKAST 10 MG (SINGULAIR) TAB PO SCH (20:53)
[2018-12-10 00:42] VITALS: BP 112/63
[2018-12-10] MEDS: HYDROcodone/APAP 7.5 MG/325 MG (LORTAB, LORCET PLUS) TABLET PO PRN (01:56)
[2018-12-10] MEDS: RT-ALBUTEROL/IPRATROPIUM 3 ML (DUONEB) VIAL INH SCH ×4 (02:34→14:12)
[2018-12-10 04:30] VITALS: BP 146/88
[2018-12-10] MEDS: inSUlin ASPART (NovoLOG) 1 UNIT/0.01 ML (CHARGE PER UNIT) SC SCH ×2 (05:37→11:54)
[2018-12-10] MEDS: glipiZIDE 5 MG (GLUCOTROL) TAB PO SCH (05:37)
[2018-12-10] MEDS: predniSONE 20 MG TAB PO SCH (05:37)
[2018-12-10] MEDS: LEVOTHYROXINE 125 MCG (LEVOTHROID) TABLET PO SCH (05:37)
[2018-12-10] MEDS: KCL 10 MEQ TAB (MICRO K) PO SCH (05:37)
[2018-12-10 06:57] LABS: BASOPHILS % (AUTO) 0 % (0-10); EOSINOPHILS # (AUTO) 0.1 10^3/uL (0.0-0.3); EOSINOPHILS % (AUTO) 1 % (0-10); HEMATOCRIT 32 % (35-52); HEMOGLOBIN 9.1 G/DL (11.5-16.0); LYMPHOCYTES # (AUTO) 0.9 X 10^3 (1.0-4.0); LYMPHOCYTES % (AUTO) 19 % (12-44); MEAN CORPUSCULAR HEMOGLOBIN 24 PG (25-34); MEAN CORPUSCULAR HGB CONC 29 G/DL (32-36); MEAN CORPUSCULAR VOLUME 84 FL (80-99); MEAN PLATELET VOLUME 9.9 FL (7.4-10.4); MONOCYTES # (AUTO) 0.6 X 10^3 (0.0-1.0); MONOCYTES % (AUTO) 13 % (0-12); NEUTROPHILS # (AUTO) 3.2 X 10^3 (1.8-7.8); NEUTROPHILS % (AUTO) 67 % (42-75); PLATELET COUNT 149 10^3/uL (130-400); WHITE BLOOD COUNT 4.8 10^3/uL (4.3-11.0)
[2018-12-10 07:32] LABS: ALANINE AMINOTRANSFERASE 16 U/L (0-55); ALBUMIN 3.1 GM/DL (3.2-4.5); ALKALINE PHOSPHATASE 80 U/L (40-136); BILIRUBIN,TOTAL 0.5 MG/DL (0.1-1.0); BUN/CREATININE RATIO 22; CALCIUM 9.3 MG/DL (8.5-10.1); CARBON DIOXIDE 31 MMOL/L (21-32); CHLORIDE 100 MMOL/L (98-107); CREATININE SERUM 0.64 MG/DL (0.60-1.30); GFR ESTIMATED > 60; GLUCOSE 169 MG/DL (70-105); POTASSIUM 3.7 MMOL/L (3.6-5.0); SODIUM 141 MMOL/L (135-145); TOTAL PROTEIN 6.2 GM/DL (6.4-8.2)
[2018-12-10 08:06] VITALS: BP 130/80
--- NOTE | 2018-12-10 08:54 | Progress Note - Hospitalist ---
Subjective HPI/CC On Admission Date Seen by Provider: Dec 10, 2018 Time Seen by Provider: 08:00 Review of Systems General: No Chills HEENT: No Head Aches; Sinus Congestion; No Sore Throat Pulmonary: Dyspnea, Cough Cardiovascular: Chest Pain (sharp, occurs with breathing at times) Gastrointestinal: No: Nausea, Vomiting, Abdominal Pain, Diarrhea, Constipation Genitourinary: No Dysuria, No Hematuria Neurological: No: Numbness Objective Exam Vital Signs Vital Signs Date Time Temp Pulse Resp B/P (MAP) Pulse Ox O2 Delivery O2 Flow Rate FiO2 12/10/18 08:06 37.0 88 20 130/80 (97) 92 Nasal Cannula 3.00 12/05/18 14:20 32 Capillary Refill : Less Than 3 Seconds General Appearance: No Apparent Distress, Chronically ill Respiratory: No Accessory Muscle Use, No Respiratory Distress, Crackles Cardiovascular: Regular Rate, Rhythm, No Edema, No Gallop, Normal Peripheral Pulses, Systolic Murmur Extremity: No Calf Tenderness, No Pedal Edema Neurologic/Psychiatric: Alert, Oriented x3, Normal Mood/Affect Results/Procedures Lab Laboratory Tests 12/10/18 06:50 Patient resulted labs reviewed. Assessment/Plan Assessment and Plan Assess & Plan/Chief Complaint Assessment: 1. Pneumonia 2. Malignant pleural effusion secondary to metastatic breast cancer 3. DM2 Plan: 1. Continue zithromax and rocephin 2. Continue medications for chronic conditions 3. Continue DVT propylaxis 4. Continue PT/OT 5. Continue following with Dr. Hilario 6. Continue contact with Palliative Care Clinical Quality Measures DVT/VTE Risk/Contraindication: Risk Factor Score Per Nursin RFS Level Per Nursing on Admit: 4+=Very High IKM MARLOW MED STUDENT Dec 10, 2018 08:54
[2018-12-10] MEDS: morphine ER 15 MG (MS CONTIN) TAB PO SCH (09:26)
[2018-12-10] MEDS: PANTOPRAZOLE 40 MG (PROTONIX) TAB PO SCH (09:27)
[2018-12-10] MEDS: GABAPENTIN 300 MG (NEURONTIN) CAP PO SCH ×2 (09:27→14:34)
[2018-12-10] MEDS: MICONAZOLE 2% POWDER (DESENEX AF) 90 GM TOP SCH (09:27)
--- NOTE | 2018-12-10 09:44 | Physical Therapy Daily Note ---
PT Daily Note-Current Subjective Patient agrees to PT at this time. She is sitting up in her chair prior to tx. Pain Numeric Pain Scale: 0-No Pain Location: No Pain Reported Mental Status Patient Orientation: Normal For Age Attachments: Oxygen Transfers SCALE: Activities may be completed with or without assistive devices. 5-Rsmlutninu-qggxbqr completes the activity by him/herself with no assistance from a helper. 5-Set-up or Clean-up Assistance-helper sets up or cleans up; patient completes activity. [place] assists only prior to or following the activity. 4-Supervision or Touching Assistance-helper provides verbal cues and/or touching/steadying and/or contact guard assistance as patient completes activity. Assistance may be provided throughout the activity or intermittently. 3-Partial/Moderate Assistance-helper does LESS THAN HALF the effort. [place] lifts, holds or supports trunk or limbs, but provides less than half the effort. 2-Substantial/Maximal Assistance-helper does MORE THAN HALF the effort. [place] lifts or holds trunk or limbs and provides more than half the effort. 5-Grtxcnbzw-lclcvp does ALL the effort. Patient does none of the effort to complete the activity. Or, the assistance of 2 or more helpers is required for the patient to complete the activity. If activity was not attempted, code reason: 7-Patient Refused. 9-Not Applicable-not attempted and the patient did not perform the activity before the current illness, exacerbation or injury. 10-Not Attempted due to Environmental Limitations-(lack of equipment, weather restraints, etc.). 88-Not Attempted due to Medical Conditions or Safety Concerns. Sit to Stand (QC): 5 Weight Bearing Right Lower Extremity: Right Full Weight Bearing Left Lower Extremity: Left Full Weight Bearing Gait Training Does the Patient Walk?: Yes Distance: 300' Walk 10 feet (QC): 5 Walk 50 ft with 2 Turns(QC): 5 Walk 150 ft (QC): 5 Gait Assistive Device: FWW step through even pattern, kyphotic posture, stays within walker Assessment Patient tolerated ambulation well. Patient demonstrated good standing balance within walker. Returned patient to seated in chair with feet up at conclusion of treatment. PT Fdc Goals Fdc Goals Sit to Lying (QC): 6 Lying-Sitting on Side/Bed(QC): 6 Sit to Stand (QC): 6 Roll Left to Right (QC): 6 Chair/Vef-qh-Gognr Xfer(QC): 6 Car Transfer (QC): 6 Does the Patient Walk: Yes Distance: 300' Walk 10 feet (QC): 6 Walk 10ft-Uneven Surface(QC): 6 Walk 50ft with 2 Turns (QC): 6 Walk 150 ft (QC): 6 Gait Assistive Device: FWW # of Steps: 3 1 Step (curb) (QC): 6 4 Steps (QC): 6 PT Plan Treatment/Plan Treatment Plan: Continue Plan of Care Treatment Plan: Bed Mobility, Education, Functional Activity Bernardo, Functional Strength, Gait, Safety, Therapeutic Exercise, Transfers Treatment Duration: Dec 19, 2018 Frequency: 11 times per week Estimated Hrs Per Day: .5 hour per day Patient and/or Family Agrees t: Yes Time/GCodes Time In: 900 Time Out: 911 Total Billed Treatment Time: 11 Total Billed Treatment 1 visit FA 11 min LUCAS SINGLETARY PT Dec 10, 2018 09:44
[2018-12-10] MEDS ORDERED: POTA10TA6 PO (09:46)
[2018-12-10] MEDS ORDERED: PRED10TA22 PO (09:46)
[2018-12-10] MEDS ORDERED: MICO90PO TOP (09:46)
[2018-12-10] MEDS ORDERED: CEFD300C3 PO (09:46)
--- NOTE | 2018-12-10 09:47 | Occupational Ther Daily Note ---
OT Current Status-Daily Note Subjective [facility] alert[facility] Pt agrees to therapy. No c/o pain at this time. Mental Status/Objective Patient Orientation: Person, Place, Time, Situation Attachments: Central Line, Oxygen ADL-Treatment Therapy Code Descriptions/Definitions Functional [place] Measure: 0=Not Assessed/NA 4=Minimal Assistance 1=Total Assistance 5=Supervision or Setup 2=Maximal Assistance 6=Modified [place] 3=Moderate Assistance 7=Complete IndependenceSCALE: Activities may be completed with or without assistive devices. 6-Lkkgynxkfd-ahgamzn completes the activity by him/herself with no assistance from a helper. 5-Set-up or Clean-up Assistance-helper sets up or cleans up; patient completes activity. [place] assists only prior to or following the activity. 4-Supervision or Touching Assistance-helper provides verbal cues and/or touching/steadying and/or contact guard assistance as patient completes activity. Assistance may be provided throughout the activity or intermittently. 3-Partial/Moderate Assistance-helper does LESS THAN HALF the effort. [place] lifts, holds or supports trunk or limbs, but provides less than half the effort. 2-Substantial/Maximal Assistance-helper does MORE THAN HALF the effort. [place] lifts or holds trunk or limbs and provides more than half the effort. 1-Mdxlmenmi-ebsryb does ALL the effort. Patient does none of the effort to complete the activity. Or, the assistance of 2 or more helpers is required for the patient to complete the activity. If activity was not attempted, code reason: 7-Patient Refused. 9-Not Applicable-not attempted and the patient did not perform the activity before the current illness, exacerbation or injury. 10-Not Attempted due to Environmental Limitations-(lack of equipment, weather restraints, etc.). 88-Not Attempted due to Medical Conditions or Safety Concerns. Toileting Hygiene (QC): 3 (Pt able to manipulate clothing and cleanse after voiding, assist needed to thoroughly cleanse after BM.) Toilet Transfer (QC): 4 (CGA using FWW and grabbars.) Other Treatment Pt completed 3 UE exercises against gravity, 2 sets 10 reps, increase UE strength and activity tolerance for daily functional tasks. Pt demonstrated understanding, did require cues for correct technique and position initially. After therapy, pt sitting in recliner with call light/phone in reach. All needs met in room. Education OT Patient Education: Exercise program Teaching Recipient: Patient Teaching Methods: Demonstration, Discussion Response to Teaching: Verbalize Understanding, Return Demonstration, Reinforcement Needed OT Short Term Goals Short Term Goals Time Frame: Dec 25, 2018 Upper Body Dressing(FIM): 4 Toileting(FIM): 5 Toilet/Commode Transfer(FIM): 5 1=Demonstrate adherence to instructed precautions during ADL tasks. 2=Patient will verbalize/demonstrate understanding of assistive devices/modifications for ADL. 3=Patient will improve strength/tolerance for activity to enable patient to perform ADL's. OT Fdc Goals Senior C Web Developer Goals Time Frame: Jan 03, 2019 Oral Hygiene (QC): 6 Shower/Bathe Self (QC): 4 Upper Body Dressing (QC): 5 Lower Body Dressing (QC): 5 On/Off Footwear (QC): 5 Toileting Hygiene (QC): 6 Toilet/Commode Transfer (QC): 6 1=Demonstrate adherence to instructed precautions during ADL tasks. 2=Patient will verbalize/demonstrate understanding of assistive devices/modif ications for ADL. 3=Patient will improve strength/tolerance for activity to enable patient to perform ADL's. OT Education/Plan Problem List/Assessment Assessment: Decreased Activ Tolerance, Decreased UE Strength, Impaired Self- Care Skills Discharge Recommendations Plan/Recommendations: Continue POC Treatment Plan/Plan of Care Patient would benefit from OT for education, treatment and training to promote independence in ADL's, mobility, safety and/or upper extremity function for ADL's. Treatment Duration: Jan 03, 2019 Frequency: 5 times per week Estimated Hrs Per Day: .25 hour per day Agreement: Yes Rehab Potential: Fair Time/GCodes Start Time: 09:20 Stop Time: 09:43 Total Time Billed (hr/min): 23 Billed Treatment Time 1 visit-ADL 1 (15 min) EX 1 (8 min) ANASTASIA OLIVERA Dec 10, 2018 09:47
--- NOTE | 2018-12-10 09:47 | Discharge Summary ---
Discharge Summary Reconcile Patient Problems Problems Reviewed?: Yes Instructions for Patient Via [employer], Assessment/Instructions [facility] in one week Physician to follow Patient: [facility] Discharge Diet for Home: ADA Diet Hospital Course Date of Admission: Dec 05, 2018 at 10:45 Admission Diagnosis : Family Physician/Provider: Khushi Miranda MD Date of Discharge: 12/10/18 Discharge Diagnosis: [ ] Hospital Course: [ ] Labs and Pending Lab Test: Laboratory Tests 12/09/18 11:18: Glucometer 391H 12/09/18 16:45: Glucometer 287H 12/09/18 20:48: Glucometer 171H 12/10/18 05:37: Glucometer 172H 12/10/18 06:50: White Blood Count 4.8, Red Blood Count 3.78L, Hemoglobin 9.1L, Hematocrit 32L, Mean Corpuscular Volume 84, Mean Corpuscular Hemoglobin 24L, Mean Corpuscular Hemoglobin Concent 29L, Red Cell Distribution Width 18.0H, Platelet Count 149, Mean Platelet Volume 9.9, Neutrophils (%) (Auto) 67, Lymphocytes (%) (Auto) 19, Monocytes (%) (Auto) 13H, Eosinophils (%) (Auto) 1, Basophils (%) (Auto) 0, Neutrophils # (Auto) 3.2, Lymphocytes # (Auto) 0.9L, Monocytes # (Auto) 0.6, Eosinophils # (Auto) 0.1, Basophils # (Auto) 0.0, Sodium Level 141, Potassium Level 3.7, Chloride Level 100, Carbon Dioxide Level 31, Anion Gap 10, Blood Urea Nitrogen 14, Creatinine 0.64, Estimat Glomerular Filtration Rate > 60, BUN/Creatinine Ratio 22, Glucose Level 169H, Calcium Level 9.3, Corrected Calcium 10.0, Total Bilirubin 0.5, Aspartate Amino Transf (AST/SGOT) 26, Alanine Aminotransferase (ALT/SGPT) 16, Alkaline Phosphatase 80, Total Protein 6.2L, Albumin 3.1L Microbiology 12/06/18 Influenza Types A,B Antigen (OVIDIO) - Final, Complete Home Meds Active Cefdinir 300 Mg Capsule 300 Mg PO BID Prednisone 10 Mg Tab.ds.pk 10 Mg PO DAILY Take 3 tabs(30mg)daily,decrease by 1 tab(10MG)daily. Lotrimin AF (Miconazole Nitrate) 90 Gm Powder 0 Gm TOP BID Klor-Con 10 (Potassium Chloride) 10 Meq Tablet.er 10 Meq PO DAILY@0700 Reported Metoprolol Succinate 25 Mg Tab.er.24h 25 Mg PO DAILY Morphine Sulfate ER (Morphine Sulfate) 15 Mg Tablet.er 15 Mg PO BID Victoza 3-Klaus (Liraglutide) 0.6 Mg/0.1 Ml Pen.injctr 1.8 Mg SC HS Metformin HCl ER (Metformin HCl) 500 Mg Tab.er.24h 500 Mg PO DAILY Diphenoxylate-Atrop 2.5-0.025 (Diphenoxylate HCl/Atropine) 1 Each Tablet 1-2 Tab PO QID PRN Hydrocodone-Acetamin 7.5-325 (Hydrocodone/Acetaminophen) 1 Each Tablet 1 Tab PO Q6H PRN Omeprazole 40 Mg Capsule.dr 40 Mg PO BID Magox 400 (Magnesium Oxide) 400 Mg Tablet 400 Mg PO BID Vitamin D (Cholecalciferol (Vitamin D3)) 2,000 Unit Tablet 2,000 Unit PO 1200 Aspirin EC (Aspirin) 81 Mg Tablet.dr 81 Mg PO 1700 Sertraline HCl 25 Mg Tablet 25 Mg PO HS Montelukast Sodium 10 Mg Tablet 10 Mg PO HS Dicyclomine HCl 10 Mg Capsule 10 Mg PO QID Levothyroxine Sodium 125 Mcg Tablet 125 Mcg PO DAILY Gabapentin 300 Mg Capsule 300 Mg PO TID Glipizide 10 Mg Tablet 10 Mg PO BID Patient Allergies: Coded Allergies: latex (Verified Allergy, Unknown, 12/05/18) Height (Feet): 5 Height (Inches): 1.00 Weight (Pounds): 162 Weight (Ounces): 0.0 Home Health Need/Face to Face Date of Face to Face: Dec 10, 2018 Clinical Findings: Generalized weakness and fatigue, Immune-compromised, Instability, Muscle weakness, Shortness of breath, Unsteady gait I have seen Pt qftm-hm-eiod: Yes Discharged To: Home Diagnosis/Conditions: Pneumonia Malignant effusion Chronic debility Patient is Homebound due to: CognItive deficits, Bonnie fall risk due to instabilty, Shortness of breath/distress Homebound Status Due to the above stated illness, injury or surgical procedure (medical condition or diagnosis) and associated clinical findings, the patient is homebound because of his/her inability to leave home except with aid of a supportive device and/or person AND leaving the home requires a considerable and taxing effort or is medically contraindicated. Pt req the following assistanc: Walker Home Health Nursing Orders Home Health Services Order: Nursing Services, Bag Worker-Evaluate & Treat, Physical Therapy-Evaluate & Treat Home Health Infusion Therapy Line Start Date: Dec 05, 2018 Certify Stmt I certify that this patient is under my care and that I, a nurse practitioner or a physician; a assistant grocery store manager working with me, had a face to face encounter that - meets the physician face to face encounter requirements with this patient as dated. SAGRARIO CRUZ DO Dec 10, 2018 09:47
--- NOTE | 2018-12-10 10:13 | Discharge Summary ---
KIM MARLOW MED STUDENT 12/10/18 1013: Diagnosis/Chief Complaint Date of Admission Dec 05, 2018 at 10:45 Date of Discharge Discharge Date: Dec 10, 2018 Admission Diagnosis Pneumonia, Malignant pleural effusion Primary Care Khushi Miranda MD Discharge Diagnosis Pnemonia, Malignant pleural effusion (1) Malignant pleural effusion Status: Chronic (2) Diabetes mellitus type 2 with complications Status: Chronic (3) CAP (community acquired pneumonia) Status: Acute Discharge Summary Discharge Physical Exam Allergies: Coded Allergies: latex (Verified Allergy, Unknown, 12/05/18) Vitals & I&Os Vital Signs Date Time Temp Pulse Resp B/P (MAP) Pulse Ox O2 Delivery O2 Flow Rate FiO2 12/10/18 08:06 37.0 88 20 130/80 (97) 92 Nasal Cannula 3.00 12/05/18 14:20 32 General Appearance: No Apparent Distress, Chronically ill Respiratory: No Accessory Muscle Use, No Respiratory Distress, Crackles Cardiovascular: Regular Rate, Rhythm, No Edema, No Gallop, No Murmur, Normal Peripheral Pulses Extremity: No Calf Tenderness, No Pedal Edema Neurologic/Psychiatric: Alert, Oriented x3, Normal Mood/Affect Hospital Course Ms. Shelton was admitted on 12/05/18 with an admitting diagnosis of malignant pleu ral effusion directly to med/surg from Dr Miranda's office, accompanied by Yelitza (Friend/caregiver). She was coughing up orange/red sputum on admission, did not continue past that day, but has since continued to have cough productive of mucus. She was started on ceftriaxone on admission for community acquired pneumonia, and stayed on it throughout her course. When seen today she reports feeling fine, about the same as she has for the past several days, main complaint being continued cough, and at times SOB. Labs show her glucose remains high, and her Hgb and Hct remain low. Her lungs have crackles on auscultation. Will be discharged tapering of of her steroids, with four days of cefdinir, and with home health. Labs (last 24 hrs) Laboratory Tests 12/09/18 11:18: Glucometer 391H 12/09/18 16:45: Glucometer 287H 12/09/18 20:48: Glucometer 171H 12/10/18 05:37: Glucometer 172H 12/10/18 06:50: White Blood Count 4.8, Red Blood Count 3.78L, Hemoglobin 9.1L, Hematocrit 32L, Mean Corpuscular Volume 84, Mean Corpuscular Hemoglobin 24L, Mean Corpuscular Hemoglobin Concent 29L, Red Cell Distribution Width 18.0H, Platelet Count 149, Mean Platelet Volume 9.9, Neutrophils (%) (Auto) 67, Lymphocytes (%) (Auto) 19, Monocytes (%) (Auto) 13H, Eosinophils (%) (Auto) 1, Basophils (%) (Auto) 0, Neutrophils # (Auto) 3.2, Lymphocytes # (Auto) 0.9L, Monocytes # (Auto) 0.6, Eosinophils # (Auto) 0.1, Basophils # (Auto) 0.0, Sodium Level 141, Potassium Level 3.7, Chloride Level 100, Carbon Dioxide Level 31, Anion Gap 10, Blood Urea Nitrogen 14, Creatinine 0.64, Estimat Glomerular Filtration Rate > 60, BUN/Creatinine Ratio 22, Glucose Level 169H, Calcium Level 9.3, Corrected Calcium 10.0, Total Bilirubin 0.5, Aspartate Amino Transf (AST/SGOT) 26, Alanine Aminotransferase (ALT/SGPT) 16, Alkaline Phosphatase 80, Total Protein 6.2L, Albumin 3.1L Microbiology 12/06/18 Influenza Types A,B Antigen (OVIDIO) - Final, Complete Patient resulted labs reviewed. Pending Labs Laboratory Tests 12/10/18 05:37: Glucometer 172 12/10/18 06:50: White Blood Count 4.8, Red Blood Count 3.78, Hemoglobin 9.1, Hematocrit 32, Mean Corpuscular Volume 84, Mean Corpuscular Hemoglobin 24, Mean Corpuscular Hemoglobin Concent 29, Red Cell Distribution Width 18.0, Platelet Count 149, Mean Platelet Volume 9.9, Neutrophils (%) (Auto) 67, Lymphocytes (%) (Auto) 19, Monocytes (%) (Auto) 13, Eosinophils (%) (Auto) 1, Basophils (%) (Auto) 0, Neutrophils # (Auto) 3.2, Lymphocytes # (Auto) 0.9, Monocytes # (Auto) 0.6, Eosinophils # (Auto) 0.1, Basophils # (Auto) 0.0, Sodium Level 141, Potassium Level 3.7, Chloride Level 100, Carbon Dioxide Level 31, Anion Gap 10, Blood Urea Nitrogen 14, Creatinine 0.64, Estimat Glomerular Filtration Rate > 60, BUN/Creatinine Ratio 22, Glucose Level 169, Calcium Level 9.3, Corrected Calcium 10.0, Total Bilirubin 0.5, Aspartate Amino Transf (AST/SGOT) 26, Alanine Aminotransferase (ALT/SGPT) 16, Alkaline Phosphatase 80, Total Protein 6.2, Albumin 3.1 Discharge Home Medications: Active Scripts Active Cefdinir 300 Mg Capsule 300 Mg PO BID Prednisone 10 Mg Tab.ds.pk 10 Mg PO DAILY Take 3 tabs(30mg)daily,decrease by 1 tab(10MG)daily. Lotrimin AF (Miconazole Nitrate) 90 Gm Powder 0 Gm TOP BID Klor-Con 10 (Potassium Chloride) 10 Meq Tablet.er 10 Meq PO DAILY@0700 Reported Metoprolol Succinate 25 Mg Tab.er.24h 25 Mg PO DAILY Morphine Sulfate ER (Morphine Sulfate) 15 Mg Tablet.er 15 Mg PO BID Victoza 3-Klaus (Liraglutide) 0.6 Mg/0.1 Ml Pen.injctr 1.8 Mg SC HS Metformin HCl ER (Metformin HCl) 500 Mg Tab.er.24h 500 Mg PO DAILY Diphenoxylate-Atrop 2.5-0.025 (Diphenoxylate HCl/Atropine) 1 Each Tablet 1-2 Tab PO QID PRN Hydrocodone-Acetamin 7.5-325 (Hydrocodone/Acetaminophen) 1 Each Tablet 1 Tab PO Q6H PRN Omeprazole 40 Mg Capsule.dr 40 Mg PO BID Magox 400 (Magnesium Oxide) 400 Mg Tablet 400 Mg PO BID Vitamin D (Cholecalciferol (Vitamin D3)) 2,000 Unit Tablet 2,000 Unit PO 1200 Aspirin EC (Aspirin) 81 Mg Tablet.dr 81 Mg PO 1700 Sertraline HCl 25 Mg Tablet 25 Mg PO HS Montelukast Sodium 10 Mg Tablet 10 Mg PO HS Dicyclomine HCl 10 Mg Capsule 10 Mg PO QID Levothyroxine Sodium 125 Mcg Tablet 125 Mcg PO DAILY Gabapentin 300 Mg Capsule 300 Mg PO TID Glipizide 10 Mg Tablet 10 Mg PO BID Instructions to patient/family Please see electronic discharge instructions given to patient. Clinical Quality Measures DVT/VTE Risk/Contraindication: Risk Factor Score Per Nursin RFS Level Per Nursing on Admit: 4+=Very High PATTI CRUZ DO 12/10/182048: Discharge Summary Discharge Physical Exam Allergies: Coded Allergies: latex (Verified Allergy, Unknown, 12/05/18) General Appearance: No Apparent Distress, WD/WN, Chronically ill Respiratory: Crackles, Decreased Breath Sounds Cardiovascular: Regular Rate, Rhythm Neurologic/Psychiatric: Alert, Oriented x3, No Motor/Sensory Deficits, Normal Mood/Affect Hospital Course Was the Problem List Reviewed?: Yes Hospital course: Pt had an uneventful hospital course for six days after she was admitted for pneumonia with known malignant pleural effusion from breast cancer metastasis. Pt was very weak, required extensive lengthy hospital course, maintained on oxygen that she takes 24/7 at home and she tolerated antibiotics well, bowels returned back to normal, home meds were restarted, including pain medication and she was deemed stable for discharge with home health but prognosis remains poor. Discussion & Recommendations Discharge Planning: <30 minutes discharge planning Supervisory-Addendum Brief Verification & Attestation Participated in pt care: history, MDM, physical Personally performed: exam, history, MDM, supervision of care Care discussed with: Medical Student Procedures: n/a Results interpretation: Verified all documentation Verification and Attestation of Medical Student E/M Service A medical student performed and documented this service in my presence. I review ed and verified all information documented by the medical student and made modifications to such information, when appropriate. I personally performed the physical exam and medical decision making. Patti Cruz, Dec 10, 2018,20:50 Problem Qualifiers (1) CAP (community acquired pneumonia): Laterality: unspecified laterality Qualified Codes: J18.9 - Pneumonia, unspecified organism KIM MARLOW MED STUDENT Dec 10, 2018 10:13 PATTI CRUZ DO Dec 10, 2018 20:49
--- NOTE | 2018-12-10 10:36 | NUR ---
DISCHARGE PLANNING: Patient is discharged to home today with continued childcare center administrator. SHe has [facility] ordered and I have spoken with [facility] who she had previously and they will resume services. I have attempted to contact Yelitza Leonard patient's caregiver and have left a message. Patient reports having been in contact with her this morning. She does have clothes and her portable O2 in the closet in her room..
[2018-12-10 11:18] VITALS: BP 124/74
--- NOTE | 2018-12-10 12:57 | NUR ---
DISCHARGE PLANNING: This RN has finally spoke to Yelitza Leonard, family day care provider. She was slightly rude, and said she wanted a call when the patient is ready and was not interested in waiting an hour when she gets here. She reported that she would let [facility] know that she was being discharged. I had thought by charting that she had [facility], so I have recalled them to say tag NOT it and I have then notified [place] and sent clinical discharge information to them. Nursing will notify Carissa when patient is ready to be picked up.
== END 2018-12-10 16:28 | disposition home health service (06) | DRG 597 ==
LOC: 4TH 10:45
PROVIDERS: ADMIT Family Medicine; ATTEND Family Medicine
DX: C50.911 Malignant neoplasm of unspecified site of right female breast (principal); J91.0 Malignant pleural effusion; J18.9 Pneumonia, unspecified organism; J96.11 Chronic respiratory failure with hypoxia; E11.42 Type 2 diabetes mellitus with diabetic polyneuropathy; E11.65 Type 2 diabetes mellitus with hyperglycemia; T38.0X5A Adverse effect of glucocorticoids and synthetic analogues, initial encounter; Z66 Do not resuscitate; I10 Essential (primary) hypertension; E87.6 Hypokalemia; E78.5 Hyperlipidemia, unspecified; E03.9 Hypothyroidism, unspecified; F41.9 Anxiety disorder, unspecified; M54.5 Low back pain; Z99.81 Dependence on supplemental oxygen; Z90.11 Acquired absence of right breast and nipple; Z87.891 Personal history of nicotine dependence
CPT/HCPCS: 36415; 71046; 80053; 82962; 83605; 85025; 85027; 87804; 94640; 94760

== ENCOUNTER → 2018-12-13 | Outpatient (CLI) | payer MEDICARE, MEDICAID ==
[~2018-12-13] MED LIST changes: +CEFD300C3 PO; +METO-387 PO; +MICO90PO TOP; +POTA10TA6 PO; +PRED10TA22 PO
== END ==
LOC: WOUNDCARE 09:51
PROVIDERS: ATTEND Surgery
DX: L89.153 Pressure ulcer of sacral region, stage 3 (principal); N39.45 Continuous leakage; L22 Diaper dermatitis; C79.9 Secondary malignant neoplasm of unspecified site; I96 Gangrene, not elsewhere classified
CPT/HCPCS: 99212

== ENCOUNTER → 2018-12-20 | Outpatient (CLI) | payer MEDICARE, MEDICAID ==
[~2018-12-20] MED LIST changes: +EZET10TA17 PO; +METF500T19 PO; -METF500T8 PO; -METF750T2 PO; +METF750T45 PO; -METO-387 PO; -MORP-33 PO; +MORP-68 PO; +MTP25TSR PO; +OMEP-280 PO; -OMEP20CA13 PO; +OMEP40CA27 PO; -OMEP40CA36 PO; +OXYB15TA18 PO
== END ==
LOC: WOUNDCARE 08:06
PROVIDERS: ATTEND Surgery
DX: L89.153 Pressure ulcer of sacral region, stage 3 (principal); N39.45 Continuous leakage; L22 Diaper dermatitis; C79.9 Secondary malignant neoplasm of unspecified site; I96 Gangrene, not elsewhere classified
CPT/HCPCS: 99213